=== PATIENT | female | born 1995 | race Caucasian/White ===

== ENCOUNTER 2023-08-11 21:08 | Outpatient (REF) | payer BC, OTHER, SELFPAY ==
[2023-08-17 13:07] LABS: Age Gdln ACOG Testing Note (.); IGP, rfx Aptima HPV ASCU Note (.)
--- OUTSIDE RECORDS SUMMARY | 2023-09-09 21:59 | XMS_ITS | CCD ---
Author Name Unknown Address [id number] [place] [address] Organization [facility] Care Team Providers Care Manager Ship Name Role Phone TAYLOR, DR PLATT Attending Unavailable TAYLOR, DR PLATT Admitting Unavailable TAYLOR, DR PLATT Consulting Unavailable REQUEST, DR CAMPOS LISTED Primary Care Unavaila ble TAYLOR, DR PLATT Admitting Unavailable HOY, DR ALICEA Primary Care Unavailable WEST, DR MARBIN Meyer Consulting Unavailable TAYLOR, DR PLATT Attending Unavailable TAYLOR, DR PLATT Consulting Unavailable TAYLOR, DR PLATT Attending Unavailable TAYLOR, DR PLATT Admitting Unavailable REQUEST, DR CAMPOS LISTED Primary Care Unavaila ble WEST, DR MARBIN Meyer Consulting Unavailable TAYLOR, DR PLATT Consulting Unavailable TAYLOR, DR PLATT Attending Unavailable TAYLOR, DR PLATT Admitting Unavailable REQUEST, DR CAMPOS LISTED Primary Care Unavaila ble TAYLOR, DR PLATT Admitting Unavailable TAYLOR, DR PLATT Consulting Unavailable HOY, DR ALICEA Primary Care Unavailable TAYLOR, DR PLATT Attending Unavailable HOY, DR ALICEA Consulting Unavailable LEMUEL, DR ALICEA Attending Unavailable ABNERY, DR ALICEA Admitting Unavailable HOY, DR ALICEA Primary Care Unavailable TAYLOR, DR PLATT Admitting Unavailable TAYLOR, DR PLATT Consulting Unavailable HOY, DR ALICEA Primary Care Unavailable TAYLOR, DR PLATT Attending Unavailable ZIEBER, DR JAYSHREE Antoine Consulting Unavailable TAYLOR, DR PLATT Attending Unavailable TAYLOR, DR PLATT Admitting Unavailable TAYLOR, DR PLATT Consulting Unavailable REQUEST, DR BETH LISTED Primary Care Unavaila ble TAYLOR, DR PLATT Attending Unavailable TAYLOR, DR PLATT Admitting Unavailable TAYLOR, DR PLATT Consulting Unavailable REQUEST, DR NONE LISTED Primary Care Unavaila ble ELIANE, DR JAYSHREE Antoine Consulting Unavailable TAYLOR, DR PLATT Consulting Unavailable HOY, DR DEANNE Primary Care Unavailable DR GIULIA VAZQUEZ Attending Unavailable TAYLOR, DR PLATT Admitting Unavailable JAYSHREE WHIPPLE Consulting Unavailable DR GIULIA VAZQUEZ Procedure Practitioner Unavailab NICHOLAS Mendoza Consulting Unavailable NICHOLAS KEYS Attending Unavailable NICHOLAS KEYS Admitting Unavailable DR DEANNE HDEZ Primary Care Unavailable SOLYAMILETH NELSON Attending Unavailable Problems Active Problems Problem Classification Problem Date Documented Da te Episodic/Chronic Other connective tissue disease (1 source) Myalgia, other site; Translations: [MYALGIA OTHER SITE] Onset: 10-23-2022 Episodic Other upper respiratory infections (4 sources) Chronic sinusitis, unspecified; Translations: [CHRONIC SINUSITIS UNSPECIFIED] Onset: 10-17-2022 Chronic Spondylosis; intervertebral disc disorders; other back problems (3 sources) Cervicalgia; Translations: [CERVICALGIA] Onset: 10-21-2022 Episodic Unclassified (1 source) CONTACT W/AND (SUSP) EXPOS COVID-19; Translations: [CONTACT W/AND (SUSP) EXPOS COVID-19] Onset: 10-18-2022 Viral infection (1 source) Viral infection, unspecified; Translations: [VIRAL INFECTION UNSPECIFIED] Onset: 10-23-2022 Episodic Past or Other Problems Problem Classification Problem Date Documented Date Episodic/Chronic Genitourinary symptoms and ill-defined conditions (5 sources) Personal history of urinary (tract) infections; Translations: [Unspecified symptoms and signs involving the genitourinary system] Onset: 12-31-2021 Episodic Nausea and vomiting (1 source) Nausea with vomiting, unspecified; Translations: [NAUSEA WITH VOMITING UNSPECIFIED] Onset: 01-23-2022 Episodic OB-related trauma to perineum and vulva (1 source) First degree perineal laceration during delivery; Translations: [FIRST DEG PERINEAL LAC DUR DELIV] Onset: 04-08-2022 Episodic Other complications of ; puerperium affecting management of mother (1 source) Streptococcus B carrier state complicating childbirth; Translations: [STREP B GOOD STATE COMP CHILDBIRTH] Onset: 04-08-2022 Episodic Other complications of (4 sources) Maternal care for excessive growth, third trimester, not applicable or unspecified; Translations: [MAT CARE EXCSS FTL GRTH 3RD TRI UNS] Onset: 03-07-2022 Episodic Other complications of (4 sources) Other specified related conditions, third trimester; Translations: [OTH SPEC PREG RELATED COND 3RD TRI] Onset: 01-18-2022 Episodic Other female genital disorders (1 source) Other specified noninflammatory disorders of vagina; Translations: [OTH SPEC NONINFLAMMATORY D/O VAGINA] Onset: 01-03-2022 Episodic Other injuries and conditions due to external causes (1 source) Unspecified injury of left wrist, hand and finger(s), initial encounter; Translations: [UNS INJ LT WRIST HAND FINGERS INIT] Onset: 11-21-2021 Episodic Other and delivery including normal (1 source) Single live ; Translations: [SINGLE LIVE ] Onset: 04-08-2022 Episodic Other screening for suspected conditions (not mental disorders or infectious disease) (16 sources) Encounter for screening for Streptococcus B; Translations: [Encounter for screening for diabetes mellitus] Onset: 11-19-2021 Episodic Residual codes; unclassified (1 source) 39 weeks gestation of ; Translations: [39 WEEKS GESTATION OF ] Onset: 04-08-2022 Episodic Residual codes; unclassified (1 source) 35 weeks gestation of ; Translations: [35 WEEKS GESTATION OF ] Onset: 03-07-2022 Episodic Residual codes; unclassified (1 source) 28 weeks gestation of ; Translations: [28 WEEKS GESTATION OF ] Onset: 01-23-2022 Episodic Residual codes; unclassified (1 source) 20 weeks gestation of ; Translations: [20 WEEKS GESTATION OF ] Onset: 11-21-2021 Episodic Results Test Name Value Interpretation Reference Range Facil ity CBC AUTO DIFFon 10-21-2022 BASO # 0.0 103/ul Normal 0.0-0.1 [facility] Comment on above: Performed By: #### C BC #### [facility] [address] [place] [address] Dr. Diann Dickerson Basophils/100 WBC (Bld) 0.4 % Normal 0.2-2.0 [facility] Comment on above: Performed By: #### C BC #### [facility] [address] [place] [address] Dr. Diann Dickerson EO # 0.0 103/ul Normal 0.0-0.7 [facility] Comment on above: Performed By: #### C BC #### [facility] [address] [place] [address] Dr. Diann Dickerson Eosinophils/100 WBC (Bld) 0.8 % Critically low 0.9-7. 0 [facility] Comment on above: Performed By: #### C BC #### [facility] [address] [place] [address] Dr. Diann Dickerson Erythrocyte distribution wid th (RBC) [Ratio] 11.0 % Normal 11.0-15.0 [facility] Comment on above: Performed By: #### C BC #### [facility] [address] [place] [address] Dr. Diann Dickerson Hematocrit (Bld) [Volume fraction] 38.0 % Normal 3 6.0-48.0 [facility] Comment on above: Performed By: #### C BC #### [facility] [address] [place] [address] Dr. Diann Dickerson Hemoglobin (Bld) [Mass/Vol] 13.6 g/dL Normal 12.0-16. 0 [facility] Comment on above: Performed By: #### C BC #### [facility] [address] [place] [address] Dr. Diann Dickerson IG # 0.02 10e3/ul Normal 0.00-0.03 [facility] Comment on above: Performed By: #### C BC #### [facility] [address] [place] [address] Dr. Diann Dickerson IG % 0.4 % Normal 0.0-0.5 [facility] Comment on above: Performed By: #### C BC #### [facility] [address] [place] [address] Dr. Diann Dickerson LYMPH # 2.0 103/ul Normal 1.2-3.8 [facility] Comment on above: Performed By: #### C BC #### [facility] [address] [place] [address] Dr. Diann Dickerson Lymphocytes/100 WBC (Bld) 38.2 % Normal 20.5-60.0 [facility] Comment on above: Performed By: #### C BC #### [facility] [address] [place] [address] Dr. Diann Dickerson MANUAL DIFF REQ NO Normal [facility] Comment on above: Performed By: #### C BC #### [facility] [address] [place] [address] Dr. Diann Dickerson MCH (RBC) [Entitic mass] 31.6 pg Normal 26.7-34.0 [facility] Comment on above: Performed By: #### C BC #### [facility] [address] [place] [address] Dr. Diann Dickerson MCHC (RBC) [Mass/Vol] 35.8 g/dL Critically high 29.9-35.2 [facility] Comment on above: Performed By: #### C BC #### [facility] [address] [place] [address] Dr. Diann Dickerson MCV (RBC) [Entitic vol] 88.2 fL Normal 81.0-99.0 [facility] Comment on above: Performed By: #### C BC #### [facility] [address] [place] [address] Dr. Diann Dickerson MONO # 0.4 103/ul Normal 0.3-0.8 [facility] Comment on above: Performed By: #### C BC #### [facility] [address] [place] [address] Dr. Diann Dickerson Monocytes/100 WBC (Bld) 7.7 % Normal 1.7-12.0 [facility] Comment on above: Performed By: #### C BC #### [facility] [address] [place] [address] Dr. Diann Dickerson NEUT # 2.7 103/ul Normal 1.4-6.5 [facility] Comment on above: Performed By: #### C BC #### [facility] [address] [place] [address] Dr. Diann Dickerson Neutrophils/100 WBC (Bld) 52.5 % Normal 43.0-75.0 [facility] Comment on above: Performed By: #### C BC #### [facility] [address] [place] [address] Dr. Diann Dickerson Platelet mean volume (Bld) [ Entitic vol] 10.3 fL Normal 9.5-13.[address] [facility] Comment on above: Performed By: #### C BC #### [facility] [address] [place] [address] Dr. Diann Dickerson PLT 251 103/ul Normal 150-450 [facility] Comment on above: Performed By: #### C BC #### [facility] [address] [place] [address] Dr. Diann Dickerson RBC 4.31 106/ul Normal 4.20-5.40 [facility] Comment on above: Performed By: #### C BC #### [facility] [address] [place] [address] Dr. Diann Dickerson WBC 5.2 103/ul Normal 4.0-11.0 [facility] Comment on above: Performed By: #### C BC #### [facility] [address] [place] [address] Dr. Diann Dickerson ER URINE PROFILEon 3 Bilirubin Ql (U) Negative Normal NEGATIVE [facility] Comment on above: Performed By: #### P REGU, ERUR #### [facility] [address] [place] [address] Dr. Diann Dickerson Clarity (U) CLEAR Normal CLEAR [facility] Comment on above: Performed By: #### P REGU, ERUR #### [facility] [address] [place] [address] Dr. Diann Dickerson Color (U) YELLOW Normal YELLOW [facility] Comment on above: Performed By: #### P REGU, ERUR #### [facility] [address] [place] [address] Dr. Diann Dickerson ERUAHD A micrscopic examina tion will be performed if indicated. Normal [facility] Comment on above: Performed By: #### P REGU, ERUR #### [facility] [address] [address] [address] Diann Dickerson Glucose Ql (U) Negative Normal NEGATIVE [facility] Comment on above: Performed By: #### P REGU, ERUR #### [facility] [address] [address] [address] Diann Dickerson Hemoglobin Ql (U) Negative Normal NEGATIVE [facility] Comment on above: Performed By: #### P REGU, ERUR #### [facility] [address] [address] [address] Diann Dickerson Ketones Ql (U) Negative Normal NEGATIVE [facility] Comment on above: Performed By: #### P REGU, ERUR #### [facility] [address] [place] [address] Dr. Diann Dickerson LEUKOCYTES Negative Normal NEGATIVE [facility] Comment on above: Performed By: #### P REGU, ERUR #### [facility] [address] [place] [address] Dr. Diann Dickerson Nitrite Ql (U) Negative Normal NEGATIVE [facility] Comment on above: Performed By: #### P REGU, ERUR #### [facility] [address] [place] [address] Dr. Diann Dickerson pH (U) 6.0 [pH] Normal 5-9 [facility] Comment on above: Performed By: #### P REGU, ERUR #### [facility] [address] [address] [address] Diann Dickerson SPEC GRAVITY 1.015 Normal 1.005-<=1.025 [facility] Comment on above: Performed By: #### P REGU, ERUR #### [facility] [address] [place] [address] Dr. Diann Dickerson UA PROTEIN Negative Normal NEGATIVE/ TRACE [facility] Comment on above: Performed By: #### P REGU, ERUR #### [facility] [address] [place] [address] Dr. Diann Dickerson UR MICRO IND NOT INDICATED Normal [facility] Comment on above: Performed By: #### P REGU, ERUR #### [facility] [address] [place] [address] Dr. Diann Dickerson Urobilinogen Qn (U) 1.0 {Guy'U}/dL Normal 0.2 - 1. 0 [facility] Comment on above: Performed By: #### P REGU, ERUR #### [facility] [address] [place] [address] Dr. Diann Dickerson GROUP A STREP CULTUREon 09-24 S. pyogenes Ag Ql (Unsp spec) Culture Observations: NEGATIVE FOR GROUP A STREPTOCOCCUS. Normal [facility] Comment on above: Performed By: #### G RASTCX, SSCRN #### [facility] [address] [place] [address] Dr. Diann Dickerson URon 10-21-2022 , QUAL Negative Normal NEGATIVE [facility] Comment on above: Performed By: #### P SHANTAU, ERUR #### [facility] [address] [place] [address] Dr. Diann Dickerson PROF CHEM 8 (BAS METB)on Anion gap [Moles/Vol] 12.1 mmol/L Normal [facility] Comment on above: Performed By: #### C BC #### [facility] [address] [place] [address] Dr. Diann Dickerson Calcium [Mass/Vol] 9.3 mg/dL Normal 8.5-10.1 [facility] Comment on above: Performed By: #### C BC #### [facility] [address] [place] [address] Dr. Diann Dickerson Chloride [Moles/Vol] 101 mmol/L Normal 98-107 [facility] Comment on above: Performed By: #### C BC #### [facility] [address] [place] [address] Dr. Diann Dickerson CO2 [Moles/Vol] 28.3 mmol/L Normal 21.0-32.0 [facility] Comment on above: Performed By: #### C BC #### [facility] [address] [address] [address] iDann Dickerson Creatinine [Mass/Vol] 0.61 mg/dL Normal 0.55-1.02 [facility] Comment on above: Performed By: #### C BC #### [facility] [address] [address] [address] Diann Dickerson EGFR-AF ESTONIAN >60 Normal >=60 [facility] Comment on above: Performed By: #### C BC #### [facility] [address] [address] [address] Diann Dickerson EGFR-NON AF ESTONIAN >60 Normal >=60 [facility] Comment on above: Performed By: #### C BC #### [facility] [address] [place] [address] Dr. Diann Dickerson Glucose [Mass/Vol] 122 mg/dL Critically high 74-106 [facility] Comment on above: Performed By: #### C BC #### [facility] [address] [address] [address] Diann Dickerson Potassium [Moles/Vol] 3.4 mmol/L Critically low 3.5-5.1 [facility] Comment on above: Performed By: #### C BC #### [facility] [address] [place] [address] Dr. Diann Dickerson Sodium [Moles/Vol] 138 mmol/L Normal 136-145 [facility] Comment on above: Performed By: #### C BC #### [facility] [address] [address] [address] Diann Dickerson Urea nitrogen [Mass/Vol] 5.0 mg/dL Critically low 7.0-18. 0 [facility] Comment on above: Performed By: #### C BC #### [facility] [address] [address] [address] Diann Dickerson Urea nitrogen/Creatinine [Mass ratio] 8.2 mg/mg Normal [facility] Comment on above: Performed By: #### C BC #### [facility] [address] [place] [address] [id number] [address] Diann Dickerson STREPT SCREENon 10-21-2022 STREP SCREEN A Negative Normal NEGATIVE [facility] Comment on above: Performed By: #### G RASTCX, SSCRN #### [facility] [address] [address] [address] Diann Dickerson Covid-19 PCR (CVDTB)on 09-23 SARS-CoV-2 (COVID-19) RNA PREMA+probe Ql (Unsp spec) Not detected Normal NOT DETECTED [facility] Comment on above: Result Comment: This test is not yet approved or cleared by the [place] FDA. When there are no FDA-approved or cleared tests available, and other criteria are met, FDA can make tests available under an emergency access mechanism called an Emergency Use Authorization (EUA). The EUA for this test is supported by the [place] of Health and Human Service's (HHS's) declaration that circumstances exist to justify the emergency use of in vitro diagnostics for the detection and/or diagnosis of the virus that causes COVID-19. This EUA will remain in effect (meaning this test can be used) for the duration of the COVID-19 declaration justifying emergency of IVDs, unless it is terminated or revoked by FDA (after which the test may no longer be used). When diagnostic testing is negative, the possibility of a false negative should be considered in the context of a patient's recent exposures and the presence of clinical signs and symptoms consistent with SARS-CoV-2. Performed By: #### C VDTBH #### [facility] [address] [place] [address] Dr. Diann Dickerson INFLUENZA A AND B AGon 10-17 INFLUANEGH SEE BELOW Normal [facility] Comment on above: Result Comment: Nega tive for Flu A protein angiten. Infection due to Flu A cannot be ruled out. Flu A angiten in the sample may be below the detection limit of the test. Performed By: #### U ACSIND #### [facility] [address] [place] [address] Dr. Diann Dickerson INFLUBNEGH SEE BELOW Normal [facility] Comment on above: Result Comment: Nega tive for Flu B protein antigen. Infection due to Flu B cannot be ruled out. Flu B antigen in the sample may be below the detection limit of the test. Performed By: #### U ACSIND #### [facility] [address] [place] [address] Dr. Diann Dickerson INFLUENZA A AG Negative Normal NEGATIVE SEE COMMENT [facility] Comment on above: Performed By: #### U ACSIND #### [facility] [address] [place] [address] Dr. Diann Dickerson INFLUENZA B AG Negative Normal NEGATIVE SEE COMMENT [facility] Comment on above: Performed By: #### U ACSIND #### [facility] [address] [place] [address] Dr. Diann Dickerson CBC AUTO DIFFon 04-02-2022 BASO # 0.0 103/ul Normal 0.0-0.1 [facility] Comment on above: Performed By: #### C VDTBH #### [facility] [address] [place] [address] Dr. Diann Dickerson Basophils/100 WBC (Bld) 0.4 % Normal 0.2-2.0 [facility] Comment on above: Performed By: #### C VDTBH #### [facility] [address] [place] [address] Dr. Diann Dickerson EO # 0.1 103/ul Normal 0.0-0.7 [facility] Comment on above: Performed By: #### C VDTBH #### [facility] [address] [place] [address] Dr. Diann Dickerson Eosinophils/100 WBC (Bld) 0.6 % Critically low 0.9-7. 0 [facility] Comment on above: Performed By: #### C VDTBH #### [facility] [address] [place] [address] Dr. Diann Dickerson Erythrocyte distribution wid th (RBC) [Ratio] 12.3 % Normal 11.0-15.0 [facility] Comment on above: Performed By: #### C VDTBH #### [facility] [address] [address] [address] Diann Dickerson Hematocrit (Bld) [Volume fraction] 35.5 % Critically low 36.0-48.0 [facility] Comment on above: Performed By: #### C VDTBH #### [facility] [address] [address] [address] Diann Dickerson Hemoglobin (Bld) [Mass/Vol] 12.3 g/dL Normal 12.0-16. 0 [facility] Comment on above: Performed By: #### C VDTBH #### [facility] [address] [address] [address] Diann Dickerson IG # 0.07 10e3/ul Critically high 0.00-0.03 [facility] Comment on above: Performed By: #### C VDTBH #### [facility] [address] [address] [address] Diann Dickerson IG % 0.7 % Critically high 0.0-0.5 [facility] Comment on above: Performed By: #### C VDTBH #### [facility] [address] [address] [address] Diann Dickerson LYMPH # 1.3 103/ul Normal 1.2-3.8 [facility] Comment on above: Performed By: #### C VDTBH #### [facility] [address] [address] [address] Diann Dickerson Lymphocytes/100 WBC (Bld) 13.9 % Critically low 20.5-6 0.0 [facility] Comment on above: Performed By: #### C VDTBH #### [facility] [address] [address] [address] Diann Dickerson MANUAL DIFF REQ NO Normal [facility] Comment on above: Performed By: #### C VDTBH #### [facility] [address] [place] [address] Dr. Diann Dickerson MCH (RBC) [Entitic mass] 34.1 pg Critically high 26.7-3 4.0 [facility] Comment on above: Performed By: #### C VDTBH #### [facility] [address] [place] [address] Dr. Diann Dickerson MCHC (RBC) [Mass/Vol] 34.6 g/dL Normal 29.9-35.2 [facility] Comment on above: Performed By: #### C VDTBH #### [facility] [address] [place] [address] Dr. Diann Dickerson MCV (RBC) [Entitic vol] 98.3 fL Normal 81.0-99.0 [facility] Comment on above: Performed By: #### C VDTBH #### [facility] [address] [place] [address] Dr. Diann Dickerson MONO # 1.0 103/ul Critically high 0.3-0.8 [facility] Comment on above: Performed By: #### C VDTBH #### [facility] [address] [place] [address] Dr. Diann Dickerson Monocytes/100 WBC (Bld) 10.5 % Normal 1.7-12.0 [facility] Comment on above: Performed By: #### C VDTBH #### [facility] [address] [place] [address] Dr. Diann Dickerson NEUT # 6.9 103/ul Critically high 1.4-6.5 [facility] Comment on above: Performed By: #### C VDTBH #### [facility] [address] [place] [address] Dr. Diann Dickerson Neutrophils/100 WBC (Bld) 73.9 % Normal 43.0-75.0 [facility] Comment on above: Performed By: #### C VDTBH #### [facility] [address] [place] [address] Dr. Diann Dickerson Platelet mean volume (Bld) [ Entitic vol] 10.8 fL Normal 9.5-13.5 [facility] Comment on above: Performed By: #### C VDTBH #### [facility] [address] [place] [address] Dr. Diann Dickerson PLT 177 103/ul Normal 150-450 [facility] Comment on above: Performed By: #### C VDTBH #### [facility] [address] [place] [address] Dr. Diann Dickerson RBC 3.61 106/ul Critically low 4.20-5.40 [facility] Comment on above: Performed By: #### C VDTBH #### [facility] [address] [place] [address] Dr. Diann Dickerson WBC 9.4 103/ul Normal 4.0-11.0 [facility] Comment on above: Performed By: #### C VDTBH #### [facility] [address] [place] [address] Dr. Diann Dickerson CBC AUTO DIFFon 04-01-2022 BASO # 0.0 103/ul Normal 0.0-0.1 [facility] Comment on above: Performed By: #### C BC #### [facility] [address] [place] [address] Dr. Diann Dickerson Basophils/100 WBC (Bld) 0.3 % Normal 0.2-2.0 [facility] Comment on above: Performed By: #### C BC #### [facility] [address] [place] [address] Dr. Diann Dickerson EO # 0.1 103/ul Normal 0.0-0.7 [facility] Comment on above: Performed By: #### C BC #### [facility] [address] [place] [address] Dr. Diann Dickerson Eosinophils/100 WBC (Bld) 0.6 % Critically low 0.9-7. 0 [facility] Comment on above: Performed By: #### C BC #### [facility] [address] [place] [address] Dr. Diann Dickerson Erythrocyte distribution wid th (RBC) [Ratio] 12.4 % Normal 11.0-15.[address] [facility] Comment on above: Performed By: #### C BC #### [facility] [address] [address] [address] Diann Dickerson Hematocrit (Bld) [Volume fraction] 38.0 % Normal 3 6.0-48.0 [facility] Comment on above: Performed By: #### C BC #### [facility] [address] [place] [address] Dr. Diann Dickerson Hemoglobin (Bld) [Mass/Vol] 13.1 g/dL Normal 12.0-16. 0 [facility] Comment on above: Performed By: #### C BC #### [facility] [address] [place] [address] Dr. Diann Dickerson IG # 0.07 10e3/ul Critically high 0.00-0.03 [facility] Comment on above: Performed By: #### C BC #### [facility] [address] [place] [address] Dr. Diann Dickerson IG % 0.7 % Critically high 0.0-0.5 [facility] Comment on above: Performed By: #### C BC #### [facility] [address] [place] [address] Dr. Diann Dickerson LYMPH # 1.5 103/ul Normal 1.2-3.8 [facility] Comment on above: Performed By: #### C BC #### [facility] [address] [place] [address] Dr. Diann Dickerson Lymphocytes/100 WBC (Bld) 15.6 % Critically low 20.5-6 0.0 [facility] Comment on above: Performed By: #### C BC #### [facility] [address] [place] [address] Dr. Diann Dickerson MANUAL DIFF REQ NO Normal [facility] Comment on above: Performed By: #### C BC #### [facility] [address] [place] [address] Dr. Diann Dickerson MCH (RBC) [Entitic mass] 33.8 pg Normal 26.7-34.0 [facility] Comment on above: Performed By: #### C BC #### [facility] [address] [place] [address] Dr. Diann Dickerson MCHC (RBC) [Mass/Vol] 34.5 g/dL Normal 29.9-35.2 [facility] Comment on above: Performed By: #### C BC #### [facility] [address] [place] [address] Dr. Diann Dickerson MCV (RBC) [Entitic vol] 97.9 fL Normal 81.0-99.0 [facility] Comment on above: Performed By: #### C BC #### [facility] [address] [place] [address] Dr. Diann Dickerson MONO # 0.8 103/ul Normal 0.3-0.8 [facility] Comment on above: Performed By: #### C BC #### [facility] [address] [place] [address] Dr. Diann Dickerson Monocytes/100 WBC (Bld) 8.2 % Normal 1.7-12.0 [facility] Comment on above: Performed By: #### C BC #### [facility] [address] [place] [address] Dr. Diann Dickerson NEUT # 7.1 103/ul Critically high 1.4-6.5 [facility] Comment on above: Performed By: #### C BC #### [facility] [address] [place] [address] Dr. Diann Dickerson Neutrophils/100 WBC (Bld) 74.6 % Normal 43.0-75.0 [facility] Comment on above: Performed By: #### C BC #### [facility] [address] [place] [address] Dr. Diann Dickerson Platelet mean volume (Bld) [ Entitic vol] 10.7 fL Normal 9.5-13.5 [facility] Comment on above: Performed By: #### C BC #### [facility] [address] [place] [address] Dr. Diann Dickerson PLT 172 103/ul Normal 150-450 [facility] Comment on above: Performed By: #### C BC #### [facility] [address] [address] [address] Diann Dickerson RBC 3.88 106/ul Critically low 4.20-5.40 [facility] Comment on above: Performed By: #### C BC #### [facility] [address] [address] [address] Diann Dickerson WBC 9.5 103/ul Normal 4.0-11.0 [facility] Comment on above: Performed By: #### C BC #### [facility] [address] [place] [address] Dr. Diann Dickerson Covid-19 PCR (CVDTB)on 03-22 SARS-CoV-2 (COVID-19) RNA PREMA+probe Ql (Unsp spec) Not detected Normal NOT DETECTED [facility] Comment on above: Result Comment: When diagnostic testing is negative, the possibility of a false negative should be considered in the context of a patient's recent exposures and the presence of clinical signs and symptoms consistent with SARS-CoV-2. This test is not yet approved or cleared by the [place] FDA. When there are no FDA-approved or cleared tests available, and other criteria are met, FDA can make tests available under an emergency access mechanism called an Emergency Use Authorization (EUA). The EUA for this test is supported by the Bottling [employer] Operator of Health and Human Service's declaration that circumstances exist to justify the emergency use of in vitro diagnostics for the detection and/or diagnosis of the virus that causes COVID-19. This EUA will remain in effect for the duration of the COVID-19 declaration justifying emergency of IVDs, unless it is terminated or revoked by the FDA (after which the test may no longer be used). Performed By: #### C VDTBH #### [facility] [address] [place] [address] Dr. Diann Dickerson DRUG SCREEN RAPID (URINE)on 04-01-2022 AMP Negative Normal NEGATIVE [facility] Comment on above: Performed By: #### C BC #### [facility] [address] [place] [address] Dr. Diann Dickerson BAR Negative Normal NEGATIVE [facility] Comment on above: Performed By: #### C BC #### [facility] [address] [place] [address] Dr. Diann Dickerson BUP Negative Normal NEGATIVE [facility] Comment on above: Performed By: #### C BC #### [address] [place] [address] [address] Diann Dickerson BZO Negative Normal NEGATIVE [facility] Comment on above: Performed By: #### C BC #### [facility] [address] [place] [address] Dr. Diann Dickerson KRYS Negative Normal NEGATIVE [facility] Comment on above: Performed By: #### C BC #### [address] [place] [address] Dr[address] Diann Dickerson CUT-OFFS SEE BELOW Normal [facility] Comment on above: Result Comment: AMP (Amphetamine): 500ng/mL, BAR (Barbituates): 200 ng/mL, BZO (Benzodiazepines): 150 ng/mL, BUP (Buprenorphine): 10 ng/mL, KRYS (Cocaine): 150 ng/mL, mAMP (Methamphetamine): 500 ng/mL, MTD (Methadone): 200 ng/mL, OPI (Opiates): 100 ng/mL, OXY (Oxycodone): 100 ng/mL, PCP (Phencyclidine): 25 ng/mL, PPX (Propoxyphene): 300 ng/mL, THC (Cannabinoids): 50 ng/mL, TCA (Trycyclic Antidepressants): 300 ng/mL Performed By: #### C BC #### [facility] [address] [place] [address] Dr. Diann Dickerson DRUG CUT HEADER DRUG CLASS TEST SYST EM CUT-OFF CONCENTRATIONS ARE FOLLOWS: Normal [facility] Comment on above: Performed By: #### C BC #### [facility] [address] [place] [address] Dr. Diann Dickerson mAMP Negative Normal NEGATIVE [facility] Comment on above: Performed By: #### C BC #### [facility] [address] [place] [address] Dr. Diann Dickerson MTD Negative Normal NEGATIVE [facility] Comment on above: Performed By: #### C BC #### [facility] [address] [place] [address] Dr. Diann Dickerson OPI Negative Normal NEGATIVE [facility] Comment on above: Performed By: #### C BC #### [facility] [address] [place] [address] Dr. Diann Dickerson OXY Negative Normal NEGATIVE [facility] Comment on above: Performed By: #### C BC #### [facility] [address] [place] [address] Dr. Diann Dickerson PCP Negative Normal NEGATIVE [facility] Comment on above: Performed By: #### C BC #### [facility] [address] [place] [address] Dr. Diann Dickerson PPX Negative Normal NEGATIVE [facility] Comment on above: Performed By: #### C BC #### [facility] [address] [place] [address] Dr. Diann Dickerson TCA Negative Normal NEGATIVE [facility] Comment on above: Performed By: #### C BC #### [facility] [address] [place] [address] Dr. Diann Dickerson THC Negative Normal NEGATIVE [facility] Comment on above: Performed By: #### C BC #### [facility] [address] [place] [address] Dr. Diann Dickerson GROUP B STREP CULTUREon 02-21 S. agalactiae Ag (Unsp spec) Culture Observations: Group B Strep called to Ashlyn Trinidad LPN at office at 0923 bl Isolate 1 Streptococcus agalactiae Moderate growth of ORGANISM 1 Streptococcus agalactiae ANTIBIOTIC M.I.C RX STATUS Benzylpenicillin <=0.06 S F Ampicillin <=0.25 S F Cefotaxime <=0.12 S F Ceftriaxone <=0.12 S F Levofloxacin 0.5 S F Erythromycin <=0.12 S F Clindamycin <=0.25 S F Linezolid <=2 S F Vancomycin <=0.12 S F Tetracycline >=16 R F Normal [facility] Comment on above: Performed By: #### C BC #### [facility] [address] [address] [address] Diann Dickerson US PREG GROWTHon 03-04-2022 US PREG GROWTH EXAMINATION: US PREG GROWTH HISTORY: Excessive growth affecting management of mother COMPARISON: No relevant comparison available. FINDINGS: Heart Rate: 142.0 bpm Number: 1.0 Position: CEPHALIC Amniotic Fluid Volume: 11.0 cm Maximum Vertical Pocket: 3.4 cm BIOMETRY: BPD: 9.0 cm cm; 36 weeks 2 days HC: 32.3 cmcm; 36 weeks 4 days AC: 31.1 cm cm; 35 weeks 0 days FL: 7.2 cm cm; 37 weeks 0 days EFW: 2775.6 grams; 67% FL/AC: 23.3 FL/BPD: 80.7 HC/AC: 1.0 GESTATIONAL AGE: Age by EDC: 35 weeks 1 days ANGELA by EDC: 04/07/2022 Age by US: 36 weeks, 2 days ANGELA by US: 03/30/2022 IMPRESSION: 1. Single live intrauterine with growth detailed above. Electronically authenticated by: JAYSHREE DEL RIO Date: 2022-03-04 17:33 Normal [facility] AMYLASEon 01-18-2022 Amylase [Catalytic activity/Vol] 30 U/L Normal 25- 115 [facility] Comment on above: Performed By: #### C VDTBH #### [facility] [address] [place] [address] Dr. Diann Dickerson BUNon 01-18-2022 Urea nitrogen [Mass/Vol] 7.0 mg/dL Normal 7.0-18.0 [facility] Comment on above: Performed By: #### C VDTBH #### [facility] [address] [place] [address] Dr. Diann Dickerson CBC AUTO DIFFon 01-18-2022 BASO # 0.0 103/ul Normal 0.0-0.1 [facility] Comment on above: Performed By: #### C VDTBH #### [facility] [address] [place] [address] Dr. Diann Dickerson Basophils/100 WBC (Bld) 0.3 % Normal 0.2-2.0 [facility] Comment on above: Performed By: #### C VDTBH #### [facility] [address] [place] [address] Dr. Diann Dickerson EO # 0.1 103/ul Normal 0.0-0.7 [facility] Comment on above: Performed By: #### C VDTBH #### [facility] [address] [place] [address] Dr. Diann Dickerson Eosinophils/100 WBC (Bld) 0.6 % Critically low 0.9-7. 0 [facility] Comment on above: Performed By: #### C VDTBH #### [facility] [address] [place] [address] Dr. Diann Dickerson Erythrocyte distribution wid th (RBC) [Ratio] 12.6 % Normal 11.0-15.0 [facility] Comment on above: Performed By: #### C VDTBH #### [facility] [address] [place] [address] Dr. Diann Dickerson Hematocrit (Bld) [Volume fraction] 36.8 % Normal 3 6.0-48.0 [facility] Comment on above: Performed By: #### C VDTBH #### [facility] [address] [place] [address] Dr. Diann Dickerson Hemoglobin (Bld) [Mass/Vol] 12.6 g/dL Normal 12.0-16. 0 [facility] Comment on above: Performed By: #### C VDTBH #### [facility] [address] [place] [address] Dr. Diann Dickerson IG # 0.06 10e3/ul Critically high 0.00-0.03 [facility] Comment on above: Performed By: #### C VDTBH #### [facility] [address] [place] [address] Dr. Diann Dickerson IG % 0.7 % Critically high 0.0-0.5 [facility] Comment on above: Performed By: #### C VDTBH #### [facility] [address] [address] [address] Diann Dickerson LYMPH # 0.7 103/ul Critically low 1.2-3.8 [facility] Comment on above: Performed By: #### C VDTBH #### [facility] [address] [address] [address] Diann Dickerson Lymphocytes/100 WBC (Bld) 7.6 % Critically low 20.5-6 0.0 [facility] Comment on above: Performed By: #### C VDTBH #### [facility] [address] [place] [address] Dr. Diann Dickerson MANUAL DIFF REQ NO Normal [facility] Comment on above: Performed By: #### C VDTBH #### [facility] [address] [place] [address] Dr. Diann Dickerson MCH (RBC) [Entitic mass] 33.3 pg Normal 26.7-34.0 [facility] Comment on above: Performed By: #### C VDTBH #### [facility] [address] [place] [address] Dr. Diann Dickerson MCHC (RBC) [Mass/Vol] 34.2 g/dL Normal 29.9-35.2 [facility] Comment on above: Performed By: #### C VDTBH #### [facility] [address] [place] [address] Dr. Diann Dickerson MCV (RBC) [Entitic vol] 97.4 fL Normal 81.0-99.0 [facility] Comment on above: Performed By: #### C VDTBH #### [facility] [address] [place] [address] Dr. Diann Dickerson MONO # 0.5 103/ul Normal 0.3-0.8 [facility] Comment on above: Performed By: #### C VDTBH #### [facility] [address] [place] [address] Dr. Diann Dickerson Monocytes/100 WBC (Bld) 5.3 % Normal 1.7-12.0 [facility] Comment on above: Performed By: #### C VDTBH #### [facility] [address] [place] [address] Dr. Diann Dickerson NEUT # 7.6 103/ul Critically high 1.4-6.5 [facility] Comment on above: Performed By: #### C VDTBH #### [facility] [address] [place] [address] Dr. Diann Dickerson Neutrophils/100 WBC (Bld) 85.5 % Critically high 43.0- 75.0 [facility] Comment on above: Performed By: #### C VDTBH #### [facility] [address] [place] [address] Dr. Diann Dickerson Platelet mean volume (Bld) [ Entitic vol] 10.2 fL Normal 9.5-13.5 [facility] Comment on above: Performed By: #### C VDTBH #### [facility] [address] [place] [address] Dr. Diann Dickerson PLT 198 103/ul Normal 150-450 [facility] Comment on above: Performed By: #### C VDTBH #### [facility] [address] [place] [address] Dr. Diann Dickerson RBC 3.78 106/ul Critically low 4.20-5.40 [facility] Comment on above: Performed By: #### C VDTBH #### [facility] [address] [place] [address] Dr. Diann Dickerson WBC 8.9 103/ul Normal 4.0-11.0 [facility] Comment on above: Performed By: #### C VDTBH #### [facility] [address] [place] [address] Dr. Diann Dickerson CREATININEon 01-18-2022 Creatinine [Mass/Vol] 0.53 mg/dL Critically low 0.55-1.02 [facility] Comment on above: Performed By: #### C VDTBH #### [facility] [address] [place] [address] Dr. Diann Dickerson EGFR-AF ESTONIAN >60 Normal >=60 [facility] Comment on above: Performed By: #### C VDTBH #### [facility] [address] [place] [address] Dr. Diann Dickerson EGFR-NON AF ESTONIAN >60 Normal >=60 [facility] Comment on above: Performed By: #### C VDTBH #### [facility] [address] [place] [address] Dr. Diann Dickerson ELECTROLYTESon 01-18-2022 Anion gap [Moles/Vol] 9.6 mmol/L Normal [facility] Comment on above: Performed By: #### C VDTBH #### [facility] [address] [place] [address] Dr. Diann Dickerson Chloride [Moles/Vol] 106 mmol/L Normal 98-107 [facility] Comment on above: Performed By: #### C VDTBH #### [facility] [address] [place] [address] Dr. Diann Dickerson CO2 [Moles/Vol] 23.5 mmol/L Normal 21.0-32.0 [facility] Comment on above: Performed By: #### C VDTBH #### [facility] [address] [place] [address] Dr. Diann Dickerson Potassium [Moles/Vol] 4.1 mmol/L Normal 3.5-5.1 [facility] Comment on above: Performed By: #### C VDTBH #### [facility] [address] [place] [address] Dr. Diann Dickerson Sodium [Moles/Vol] 135 mmol/L Critically low 136-145 [facility] Comment on above: Performed By: #### C VDTBH #### [facility] [address] [place] [address] Dr. Diann Metcalf 01-18-2022 AST [Catalytic activity/Vol] 15 U/L Normal 15-37 [facility] Comment on above: Performed By: #### C VDTBH #### [facility] [address] [place] [address] Dr. Diann LYNPTon 01-18-2022 ALT [Catalytic activity/Vol] 19 U/L Normal 14-59 [facility] Comment on above: Performed By: #### C VDTBH #### [facility] [address] [place] [address] Dr. Diann Dickerson TSHon 01-18-2022 TSH 1.409 uIU/mL Normal 0.470-4.680 [facility] Comment on above: Performed By: #### C VDTBH #### [facility] [address] [place] [address] Dr. Diann Dickerson TSH RANGE SEE BELOW Normal [facility] Comment on above: Result Comment: <0.3 4 UIU/ml HYPERTHYROID 0.34-5.60 UIU/ml EUTHYROID >5.60 UIU/ml HYPOTHYROID Performed By: #### C VDTBH #### [facility] [address] [place] [address] Dr. Diann Dickerson UA (CLEAN/CATCH) CUBING MACHINE TENDER/MICRO I F IND.on 01-18-2022 Bilirubin Ql (U) Negative Normal NEGATIVE [facility] Comment on above: Performed By: #### U ACSIND #### [facility] [address] [place] [address] Dr. Diann Dickerson Clarity (U) CLEAR Normal CLEAR [facility] Comment on above: Performed By: #### U ACSIND #### [facility] [address] [place] [address] Dr. Diann Dickerson Color (U) YELLOW Normal YELLOW [facility] Comment on above: Performed By: #### U ACSIND #### [facility] [address] [place] [address] Dr. Diann Dickerson Glucose Ql (U) Negative Normal NEGATIVE [facility] Comment on above: Performed By: #### U ACSIND #### [facility] [address] [place] [address] Dr. Diann Dickerson Hemoglobin Ql (U) Negative Normal NEGATIVE [facility] Comment on above: Performed By: #### U ACSIND #### [facility] [address] [place] [address] Dr. Diann Dickerson Ketones Ql (U) Negative Normal NEGATIVE [facility] Comment on above: Performed By: #### U ACSIND #### [facility] [address] [address] [address] Diann Dickerson LEUKOCYTES Negative Normal NEGATIVE [facility] Comment on above: Performed By: #### U ACSIND #### [facility] [address] [address] [address] Diann Dickerson Nitrite Ql (U) Negative Normal NEGATIVE [facility] Comment on above: Performed By: #### U ACSIND #### [facility] [address] [address] [address] Diann Dickerson pH (U) 8.5 [pH] Normal 5-9 [facility] Comment on above: Performed By: #### U ACSIND #### [facility] [address] [place] [address] Dr. Diann Dickerson SPEC GRAVITY 1.015 Normal 1.005-<=1.025 [facility] Comment on above: Performed By: #### U ACSIND #### [facility] [address] [address] [address] Diann Dickerson UA PROTEIN Negative Normal NEGATIVE/ TRACE [facility] [facility] Comment on above: Performed By: #### U ACSIND #### [facility] [address] [address] [address] Diann Dickerson UR MICRO IND NOT INDICATED Normal [facility] Comment on above: Performed By: #### U ACSIND #### [facility] [address] [address] [address] Diann Dickerson Urobilinogen Qn (U) 0.2 {Guy'U}/dL Normal 0.2 - 1. 0 [facility] Comment on above: Performed By: #### U ACSIND #### [facility] [address] [address] [address] Diann Dickerson US PREG BIOPHY W NON STRESSo n 01-18-2022 US PREG BIOPHY W NON STRESS EXAMINATION: US PREG BIOPHY W NON STRESS HISTORY: Nausea and vomiting COMPARISON: No relevant comparison available. TECHNIQUE: Ultrasound biophysical profile was performed in the radiology department. FINDINGS: BREATHING MOVEMENTS: 2.0 GROSS BODY MOVEMENTS: 2.0 TONE: 2.0 QUALITATIVE AMNIOTIC FLUID VOLUME: 2.0 PRESENTATION: Cephalic HEART RATE: 153.4 bpm H.B./min AMNIOTIC FLUID VOLUME: 16.2 cm cm GESTATIONAL AGE: 28 weeks 5 days CONCLUSION: Total biophysical profile score: 8.0 Electronically authenticated by: MARBIN MCKEON Date: 2022-01-18 10:45 Normal [facility] US PREG CERVICAL LENGTHon US PREG CERVICAL LENGTH EXAMINATION: US PREG CERVICAL LENGTH HISTORY: Nausea and vomiting COMPARISON: 12/31/2021 FINDINGS: position: Cephalic Heart rate: 141 bpm Cervix: 4.7 cm, closed Clinical age: 20 weeks 5 days Clinical ANGELA: 04/07/2022 IMPRESSION: Closed cervix measuring 4.7 cm in length Electronically authenticated by: MARBIN MCKEON Date: 2022-01-18 10:46 Normal [facility] CULTURE URINEon 12-31-2021 CULTURE URINE Culture Observations : No growth Normal [facility] Comment on above: Performed By: #### C BC #### [facility] [address] [place] [address] Dr. Diann Dickerson US PREG AMNIOTIC FLUID VOLUM Elio 12-31-2021 US PREG AMNIOTIC FLUID VOLUME EXAMINATION: US PREG AMNIOTIC FLUID VOLUME HISTORY: Noninflammatory disorder of the vagina ; vaginal discharge COMPARISON: No relevant comparison available. TECHNIQUE: Limited sonographic examination for amniotic fluid volume FINDINGS: Presentation: Cephalic FILOMENA: 15.3 cm (between fifth and 95th percentile). Heart rate: 130 bpm Gestational age: 26 weeks, 1 day ANGELA: 04/07/2022 IMPRESSION: 1. Normal amniotic fluid index. Electronically authenticated by: JAYSHREE DEL RIO Date: 2021-12-31 12:41 Normal [facility] GLUCOSE - 1HRon 12-17-2021 Glucose [Mass/Vol] 134 mg/dL Critically high 74-106 T [facility] Comment on above: Performed By: #### G LU1HR #### [facility] [address] [place] [address] Dr. Diann Dickerson HEMOGRAM AND PLATELon 2021 Hematocrit (Bld) [Volume fraction] 36.7 % Normal 3 6.0-48.0 [facility] Comment on above: Performed By: #### C BC #### [facility] [address] [place] [address] Dr. Diann Dickerson Hemoglobin (Bld) [Mass/Vol] 12.5 g/dL Normal 12.0-16. 0 [facility] Comment on above: Performed By: #### C BC #### [facility] [address] [place] [address] Dr. Diann Dickerson MCH (RBC) [Entitic mass] 33.2 pg Normal 26.7-34.0 [facility] Comment on above: Performed By: #### C BC #### [facility] [address] [place] [address] Dr. Diann Dickerson MCHC (RBC) [Mass/Vol] 34.1 g/dL Normal 29.9-35.2 [facility] Comment on above: Performed By: #### C BC #### [facility] [address] [place] [address] Dr. Diann Dickerson MCV (RBC) [Entitic vol] 97.6 fL Normal 81.0-99.0 [facility] Comment on above: Performed By: #### C BC #### [facility] [address] [place] [address] Dr. Diann Dickerson PLT 207 103/ul Normal 150-450 [facility] Comment on above: Performed By: #### C BC #### [facility] [address] [place] [address] Dr. Diann Dickerson RBC 3.76 106/ul Critically low 4.20-5.40 [facility] Comment on above: Performed By: #### C BC #### [facility] [address] [place] [address] Dr. Diann Dickerson WBC 6.3 103/ul Normal 4.0-11.0 [facility] Comment on above: Performed By: #### C BC #### [facility] [address] [place] [address] Dr. Diann Dickerson US PREG ANATOMY SINGLEon US PREG ANATOMY SINGLE EXAMINATION: US PREG ANATOMY SINGLE HISTORY: anatomy study COMPARISON: No relevant comparison available. TECHNIQUE: Transabdominal sonographic examination was performed for obstetrical and evaluation. FINDINGS: Number: 1 Heart Rate: 142 H.B. /min Amniotic Fluid Volume: Subjectively normal position: Variable Placental Location: Posterior, grade 0. Placental edge is 3.1 cm from the cervical os Cervix Length: 4.3 cm, closed Normal structures: Cerebellum. Choroid plexus. Cisterna magna. Lateral cerebral ventricles. Orbits. Midline falx. Hard palate. 4-chamber heart. RVOT. LVOT. Stomach. Kidneys. Bladder. Umbilical cord insertion into abdomen. 3 vessel cord. Cervical spine. Thoracic spine. Lumbar spine. Sacral spine. Right upper extremity. Left upper extremity. Right lower extremity. Left lower extremity. Suboptimally seen: None. Abnormalities/Other: None BIOMETRY: BPD: 4.8 cm 20 weeks 3 days HC: 18.2 cm 20 weeks 4 days AC: 15.4 cm 20 weeks 4 days FL: 3.4 cm 20 weeks 5 days EFW:0.515525; FL/AC: 0.236457 FL/BPD: 0.911493 HC/AC: 1.922603 GESTATIONAL AGE: Age by EDC: 20 weeks 1 day ANGELA by EDC: 04/07/2022 Age by current US: 20 weeks 4 day ANGELA by current US: 04/04/2022 IMPRESSION: Normal anatomy scan *Reference: [employer] Practice Guideline for the performance of Obstetric Ultrasound Examinations, June 22, 2007. Electronically authenticated by: MARBIN MCKEON Date: 2021-11-20 07:34 Normal [facility] Encounters Encounter Date Encounter Type Care Provider Facility Start: 08-11-2023 End: 08-11-2023 ambulatory YAMILETH HORTON Not Available Start: 10-21-2022 End: 10-21-2022 ambulatory NICHOLAS KEYS Facility:[facility] Start: 10-17-2022 End: 10-17-[address] DEANNE HDEZ Facility:[facility] Start: 04-01-2022 End: 04-03-2022 Evaluation and management of inpatient DR GIULIA VAZQUEZ Facility:[facility] Start: 03-11-2022 End: 03-11-[address] GIULIA VAZQUEZ Facility:[facility] Start: 03-04-2022 End: 03-05-[address] GIULIA VAZQUEZ Facility:[facility] Start: 01-18-2022 End: 01-18-[address] GIULIA VAZQUEZ Facility:[facility] Start: 12-31-2021 End: 12-31-[address] GIULIA VAZQUEZ Facility:[facility] Start: 12-31-2021 End: 01-01-[address] GIULIA VAZQUEZ Facility:[facility] Start: 12-17-2021 End: 12-18-[address] GIULIA VAZQUEZ Facility:[facility] Start: 11-19-2021 End: 11-20-[address] GIULIA VAZQUEZ Facility:[facility] Start: 11-19-2021 End: 11-20-[address] GIULIA VAZQUEZ Facility:[facility] Procedures Date Procedure Procedure Detail Performing Clinician Start: 04-01-2022 Delivery of Products of Conception, External Approach DR GIULIA VAZQUEZ Start: 04-01-2022 Drainage of Amniotic Fluid, Therapeutic from Products of Conception, Via Natural or Artificial Opening DR GIULIA VAZQUEZ Start: 04-01-2022 Introduction of Othe r Hormone into Peripheral Vein, Percutaneous Approach DR GIULIA VAZQUEZ Start: 04-01-2022 Repair Perineum Skin , External Approach DR GIULIA VAZQUEZ Payers Date Payer Category Payer Unknown [id number] 2..84 [id number] 1994 Unknown [id number] 2.16.84 [id number] 1994 Unknown [id number] 2.16.84 [id number] 1994 Unknown [id number] 2.16.84 [id number] 1994 Unknown [id number] 2.16.84 [id number] 1994 Unknown [id number] 2.16.84 [id number] 1994 Unknown [id number] 2.16.84 [id number] 1994 Unknown [id number] 2.16.84 [id number] 1994 Unknown [id number] 2.16.84 [id number] 1994 Unknown [id number] 2.16.84 [id number] 1994 Unknown [id number] 2.16.84 [id number] 1959 Unknown [id number] 1959 Unknown [id number] 1959 Unknown [id number] Clinical Note 11-19-2021 Note Date & Type Note Facility 11-19-2021 Note PROCEDURE: XR WRIST LT MIN 3 V COMPARISON: None. HISTORY: Pain of left wrist FINDINGS: BONES:No fracture, acute abnormality, or significant arthropathy. SOFT TISSUES:Negative. No visible soft tissue swelling. EFFUSION:None visible. OTHER: Negative. IMPRESSION: No acute abnormality Electronically authenticated by: MARBIN MCKEON Date: 2021-11-19 13:16 [facility] Summary Purpose Family History No Family History Records FoundNo Family History Records Found Advance Directives No Advanced Directives Records FoundNo Advanced Directives Records Found Additional Source Comments INFORMATION SOURCE (unrecogn ized section and content) DATE CREATED AUTHOR 10/24/2022 [facility] DATE CREATED AUTHOR AUTHOR'S ORGANIZ ATION 08/12/2023 [facility] d[facility] Special[facility] FOR RECORDS PERTAINING TO PATIENTS WHO ARE OR HAVE BEEN ENROLLED IN A CHEMICAL DEPENDENCY/SUBSTANCEABUSE PROGRAM, SOME INFORMATION MAY BE OMITTED. This clinical summary was aggregated from multiple sources. Caution should be exercised in using it in the provision of clinical care. This summary normalizes information from multiple sources, and as a consequence, information in this document may materially change the coding, format and clinical context of patient data. In addition, data may be omitted in some cases. CLINICAL DECISIONS SHOULD BE BASED ON THE PRIMARY CLINICAL RECORDS. [facility] provides no warranty or guarantee of the accuracy or completeness of information in this document.
== END 2023-08-11 21:09 | disposition home or self-care (01) ==
LOC: LAB 21:08
PROVIDERS: PCP Family Medicine; Visit Provider Physician Assistant
DX: Z01.419 Encounter for gynecological examination (general) (routine) without abnormal findings (principal)
CPT/HCPCS: G0145

== ENCOUNTER 2023-08-13 07:52 | Outpatient (OUT) | payer BC, OTHER, SELFPAY ==
[2023-08-13 08:19] LABS: Basophils Percent Auto 0.7 % (0.2-2.0); Eosinophils Absolute Auto 0.1 10^3/uL (0.0-0.7); Eosinophils Percent Auto 1.2 % (0.9-7.0); Hematocrit 41.2 % (36.0-48.0); Hemoglobin 13.9 g/dL (12.0-16.0); Lymphocytes Absolute Auto 1.7 10^3/uL (1.2-3.8); Lymphocytes Percent Auto 39.3 % (20.5-60.0); Mean Corpuscular HGB Conc 33.7 g/dL (29.9-35.2); Mean Corpuscular Hemoglobin 31.7 pg (26.7-34.0); Mean Corpuscular Volume 93.8 fL (81.0-99.0); Mean Platelet Volume 10.5 fL (9.5-13.5); Monocytes Absolute Auto 0.4 10^3/uL (0.3-0.8); Monocytes Percent Auto 8.9 % (1.7-12.0); Neutrophils Absolute Auto 2.1 10^3/uL (1.4-6.5); Neutrophils Percent Auto 49.9 % (43.0-75.0); Platelet Count 242 10^3/uL (150-450); Red Blood Count 4.39 10^6/uL (4.20-5.40); Red Cell Distribution Width 11.2 % (11.0-15.0); White Blood Count 4.3 10^3/uL (4.0-11.0)
[2023-08-13 09:02] LABS: Alanine Aminotransferase 19 U/L (14-59); Albumin Level 3.5 g/dL (3.4-5.0); Alkaline Phosphatase 55 U/L (46-116); Anion Gap 13.1; Aspartate Amino Transferase 13 U/L (15-37); BUN Creatinine Ratio 12.7; Bilirubin Total 1.9 mg/dL (0.2-1.0); Calcium 8.6 mg/dL (8.5-10.1); Carbon Dioxide 28.1 mmol/L (21.0-32.0); Chloride 103 mmol/L (98-107); Chol HDL Ratio 2.8; Cholesterol 187 mg/dL (<=200); Estimated GFR (African America >60 (>=60); Estimated GFR (Non-African Ame >60 (>=60); Globulin 3.4 g/dL; Glucose 93 mg/dL (74-106); HDL Cholesterol 66 mg/dL (40-60); Potassium 4.2 mmol/L (3.5-5.1); Sodium 140 mmol/L (136-145); Total Protein 6.9 g/dL (6.4-8.2); Triglycerides 124 mg/dL (<=150); VLDL CHOLESTEROL 24.8 mg/dL
[2023-08-13 09:54] LABS: Estimated Average Glucose 91 mg/dL; Glycohemoglobin A1C 4.8 % (4.5-6.2)
== END 2023-08-13 07:53 | disposition home or self-care (01) ==
PROVIDERS: PCP Family Medicine; Visit Provider Obstetrics & Gynecology
DX: Z00.00 Encounter for general adult medical examination without abnormal findings (principal)
CPT/HCPCS: 36415; 80053; 80061; 83036; 85025

== ENCOUNTER 2023-11-12 13:45 | Outpatient (OUT) | payer BC, OTHER, SELFPAY ==
[2023-11-12 14:52] LABS: HCG Quantitative 3497 mIU/mL
== END 2023-11-12 13:46 | disposition home or self-care (01) ==
LOC: LAB 13:45
PROVIDERS: PCP Family Medicine; Visit Provider Obstetrics & Gynecology
DX: N92.6 Irregular menstruation, unspecified (principal)
CPT/HCPCS: 36415; 84702

== ENCOUNTER 2023-11-14 10:07 | Outpatient (OUT) | payer BC, OTHER, SELFPAY ==
--- OUTSIDE RECORDS SUMMARY | 2023-11-14 10:16 | XMS_ITS | CCD ---
Author Name Unknown Address [id number] [place] [address] Organization [facility] Team Providers Care Derrick Boat Runner Name Role Phone TAYLOR, DR PLATT Attending Unavailable TAYLOR, DR PLATT Admitting Unavailable TAYLOR, DR PLATT Consulting Unavailable REQUEST, DR ACMPOS LISTED Primary Care Unavaila ble TAYLOR, DR [...] Unavailable JAYSHREE WHIPPLE Consulting Unavailable DR GIULIA VAQZUEZ Procedure Practitioner Unavailab NICHOLAS Mendoza Consulting Unavailable [...] 10-21-2022 BASO # 0.0 103/ul Normal 0.0-0.1 [facility] Comment on above: Performed By: #### C BC #### [facility] [address] [place] [address] Dr. Diann Dickerson Basophils/100 WBC (Bld) 0.4 % Normal 0.2-2.0 [facility] Comment on above: Performed By: #### C BC #### [facility] [address] [place] [address] Dr. Diann Dickerson EO # 0.0 103/ul Normal 0.0-0.7 [facility] Comment on above: Performed By: #### C BC #### [facility] [address] [place] [address] Dr. Diann Dickerson Eosinophils/100 WBC (Bld) 0.8 % Critically low 0.9-7.0 [facility] Comment on above: Performed By: #### C BC #### [facility] [address] [place] [address] Dr. Diann Dickerson Erythrocyte distribution width (RBC) [Ratio] 11.0 % Normal 11.0-15.0 [facility] Comment on above: Performed By: #### C BC #### [facility] [address] [place] [address] Dr. Diann Dickerson Hematocrit (Bld) [Volume fraction] 38.0 % Normal 36.0-48.0 [facility] Comment on above: Performed By: #### C BC #### [facility] [address] [place] [address] Dr. Diann Dickerson Hemoglobin (Bld) [Mass/Vol] 13.6 g/dL Normal 12.0-16.0 [facility] Comment on above: Performed By: #### C BC #### [facility] [address] [place] [address] Dr. Diann Dickerson IG # 0.02 10e3/ul Normal 0.00-0.03 [facility] Comment on above: Performed By: #### C BC #### [facility] [address] [place] [address] Dr. Diann Dickerson IG % 0.4 % Normal 0.0-0.5 [facility] Comment on above: Performed By: #### C BC #### [facility] [address] [place] [address] Dr. Diann Dickerson LYMPH # 2.0 103/ul Normal 1.2-3.8 [facility] Comment on above: Performed By: #### C BC #### [facility] [address] [place] [address] Dr. Diann Dickerson Lymphocytes/100 WBC (Bld) 38.2 % Normal 20.5-60.0 [facility] Comment on above: Performed By: #### C BC #### [facility] [address] [place] [address] Dr. Diann Dickerson MANUAL DIFF REQ NO Normal [facility] Comment on above: Performed By: #### C BC #### [facility] [address] [place] [address] Dr. Diann Dickerson MCH (RBC) [Entitic mass] 31.6 pg Normal 26.7-34.0 [facility] Comment on above: Performed By: #### C BC #### [facility] [address] [place] [address] Dr. Diann Dickerson MCHC (RBC) [Mass/Vol] 35.8 g/dL Critically high 29.9-35.2 [facility] Comment on above: Performed By: #### C BC #### [facility] [address] [place] [address] Dr. Diann Dickerson MCV (RBC) [Entitic vol] 88.2 fL Normal 81.0-99.0 [facility] Comment on above: Performed By: #### C BC #### [facility] [address] [place] [address] Dr. Diann Dickerson MONO # 0.4 103/ul Normal 0.3-0.8 [facility] Comment on above: Performed By: #### C BC #### [facility] [address] [place] [address] Dr. Diann Dickerson Monocytes/100 WBC (Bld) 7.7 % Normal 1.7-12.0 [facility] Comment on above: Performed By: #### C BC #### [facility] [address] [place] [address] Dr. Diann Dickerson NEUT # 2.7 103/ul Normal 1.4-6.5 [facility] Comment on above: Performed By: #### C BC #### [facility] [address] [place] [address] Dr. Diann Dickerson Neutrophils/100 WBC (Bld) 52.5 % Normal 43.0-75.0 [facility] Comment on above: Performed By: #### C BC #### [facility] [address] [place] [address] Dr. Diann Dickerson Platelet mean volume (Bld) [Entitic vol] 10.3 fL Normal 9.5-13.5 [facility] Comment on above: Performed By: #### C BC #### [facility] [address] [place] [address] Dr. Diann Dickerson PLT 251 103/ul Normal 150-450 [facility] Comment on above: Performed By: #### C BC #### [facility] [address] [place] [address] Dr. Diann Dickerson RBC 4.31 106/ul Normal 4.20-5.40 [facility] Comment on above: Performed By: #### C BC #### [facility] [address] [place] [address] Dr. Diann Dickerson WBC 5.2 103/ul Normal 4.0-11.0 [facility] Comment on above: Performed By: #### C BC #### [facility] [address] [place] [address] Dr. Diann Dickerson ER URINE PROFILEon 3 Bilirubin Ql (U) Negative Normal NEGATIVE [facility] Comment on above: Performed By: #### P JONATHAN, ERUR #### [facility] [address] [place] [address] Dr. Diann Dickerson Clarity (U) CLEAR Normal CLEAR [facility] Comment on above: Performed By: #### P REGU, ERUR #### [facility] [address] [place] [address] Dr. Diann Dickerson Color (U) YELLOW Normal YELLOW [facility] Comment on above: Performed By: #### P SHANTAU, ERUR #### [facility] [address] [place] [address] Dr. Diann Dickerson ERUAHD A micrscopic examination will be performed if indicated. Normal [facility] Comment on above: Performed By: #### P SHANTAU, ERUR #### [facility] [address] [address] [address] Diann Dickerson Glucose Ql (U) Negative Normal NEGATIVE [facility] Comment on above: Performed By: #### P REGU, ERUR #### [facility] [address] [address] [address] Diann Dickerson Hemoglobin Ql (U) Negative Normal NEGATIVE [facility] Comment on above: Performed By: #### P REGU, ERUR #### [facility] [address] [address] [address] Diann Dickerson Ketones Ql (U) Negative Normal NEGATIVE [facility] Comment on above: Performed By: #### P REGU, ERUR #### [facility] [address] [place] [address] Dr. Diann Dickerson LEUKOCYTES Negative Normal NEGATIVE [facility] Comment on above: Performed By: #### P REGU, ERUR #### [facility] [address] [place] [address] Dr. Diann Dickerson Nitrite Ql (U) Negative Normal NEGATIVE [facility] Comment on above: Performed By: #### P REGU, ERUR #### [facility] [address] [place] [address] Dr. Diann Dickerson pH (U) 6.0 [pH] Normal 5-9 [facility] Comment on above: Performed By: #### P REGU, ERUR #### [facility] [address] [place] [address] Dr. Diann Dickerson SPEC GRAVITY 1.015 Normal 1.005-<=1.025 [facility] Comment on above: Performed By: #### P REGU, ERUR #### [facility] [address] [place] [address] Dr. Diann Dickerson UA PROTEIN Negative Normal NEGATIVE/ TRACE [facility] Comment on above: Performed By: #### P REGU, ERUR #### [facility] [address] [place] [address] Dr. Diann Dickerson UR MICRO IND NOT INDICATED Normal [facility] Comment on above: Performed By: #### P REGU, ERUR #### [facility] [address] [place] [address] Dr. Diann Dickerson Urobilinogen Qn (U) 1.0 {Guy'U}/dL Normal 0.2 - 1. 0 [facility] Comment on above: Performed By: #### P REGU, ERUR #### [facility] [address] [place] [address] Dr. Diann Dickerson GROUP A STREP CULTUREon 09-24 S. pyogenes Ag Ql (Unsp spec) Culture Observations: NEGATIVE FOR GROUP A STREPTOCOCCUS. Normal [facility] Comment on above: Performed By: #### G RASTCX, SSCRN #### [facility] [address] [place] [address] Dr. Diann Dickerson URon 10-21-2022 , QUAL Negative Normal NEGATIVE [facility] Comment on above: Performed By: #### P REGU, ERUR #### [facility] [address] [place] [address] Dr. Diann Dickerson PROF CHEM 8 (BAS METB)on Anion gap [Moles/Vol] 12.1 mmol/L Normal [facility] Comment on above: Performed By: #### C BC #### [facility] [address] [place] [address] Dr. Diann Dickerson Calcium [Mass/Vol] 9.3 mg/dL Normal 8.5-10.1 [facility] Comment on above: Performed By: #### C BC #### [facility] [address] [place] [address] Dr. Diann Dickerson Chloride [Moles/Vol] 101 mmol/L Normal 98-107 [facility] Comment on above: Performed By: #### C BC #### [facility] [address] [place] [address] Dr. Diann Dickerson CO2 [Moles/Vol] 28.3 mmol/L Normal 21.0-32.0 [facility] Comment on above: Performed By: #### C BC #### [facility] [address] [place] [address] Dr. Diann Dickerson Creatinine [Mass/Vol] 0.61 mg/dL Normal 0.55-1.02 [facility] Comment on above: Performed By: #### C BC #### [facility] [address] [address] [address] Diann Dickerson EGFR-AF [place]ER >60 Normal >=60 [facility] Comment on above: Performed By: #### C BC #### [facility] [address] [address] [address] Diann Dickerson EGFR-NON AF [place]ER >60 Normal >=60 [facility] Comment on above: Performed By: #### C BC #### [facility] [address] [address] [address] Diann Dickerson Glucose [Mass/Vol] 122 mg/dL Critically high 74-106 [facility] Comment on above: Performed By: #### C BC #### [facility] [address] [address] [address] Diann Dickerson Potassium [Moles/Vol] 3.4 mmol/L Critically low 3.5-5.1 [facility] Comment on above: Performed By: #### C BC #### [facility] [address] [address] [address] Diann Dickerson Sodium [Moles/Vol] 138 mmol/L Normal 136-145 [facility] Comment on above: Performed By: #### C BC #### [facility] [address] [address] [address] Diann Dickerson Urea nitrogen [Mass/Vol] 5.0 mg/dL Critically low 7.0-18.0 [facility] Comment on above: Performed By: #### C BC #### [facility] [address] [address] [address] Diann Dickerson Urea nitrogen/Creatinine [Mass ratio] 8.2 mg/mg Normal [facility] Comment on above: Performed By: #### C BC #### [facility] [address] [address] [address] Diann Dickerson STREPT SCREENon 10-21-2022 STREP SCREEN A Negative Normal NEGATIVE [facility] Comment on above: Performed By: #### G RASTCX, SSCRN #### [facility] [address] [address] [address] Diann Dickerson Covid-19 PCR ([facility])on 09-23 SARS-CoV-2 (COVID-19) RNA PREMA+probe Ql (Unsp spec) Not detected Normal NOT DETECTED [facility] Comment on above: Result Comment: This test is not yet approved or cleared by the [place] FDA. When there are no FDA-approved or cleared tests available, and other criteria are met, FDA can make tests available under an emergency access mechanism called an Emergency Use Authorization (EUA). The EUA for this test is supported by the [place] of Health and Human Service's (HHS's) declaration [...] SARS-CoV-2. Performed By: #### C VDTBH #### [facility] [address] [place] [address] Dr. Diann Dickerson INFLUENZA A AND B AGon 10-17 [facility] SEE BELOW Normal [facility] Comment on above: Result Comment: Nega tive for Flu A protein angiten. Infection due to Flu A cannot be ruled out. Flu A angiten in the sample may be below the detection limit of the test. Performed By: #### U ACSIND #### [facility] [address] [place] [address] Dr. Diann Dickerson INFLUBNEG SEE BELOW Normal [facility] Comment on above: Result Comment: Nega tive for Flu B protein antigen. Infection due to Flu B cannot be ruled out. Flu B antigen in the sample may be below the detection limit of the test. Performed By: #### U ACSIND #### [facility] [address] [place] [address] Dr. Diann Dickerson INFLUENZA A AG Negative Normal NEGATIVE SEE COMMENT [facility] Comment on above: Performed By: #### U ACSIND #### [facility] [address] [place] [address] Dr. Diann Dickerson INFLUENZA B AG Negative Normal NEGATIVE SEE COMMENT [facility] Comment on above: Performed By: #### U ACSIND #### [facility] [address] [place] [address] Dr. Diann Dickerson CBC AUTO DIFFon 04-02-2022 BASO # 0.0 103/ul Normal 0.0-0.1 [facility] Comment on above: Performed By: #### C VDTBH #### [facility] [address] [place] [address] Dr. Diann Dickerson Basophils/100 WBC (Bld) 0.4 % Normal 0.2-2.0 [facility] Comment on above: Performed By: #### C VDTBH #### [facility] [address] [place] [address] Dr. Diann Dickerson EO # 0.1 103/ul Normal 0.0-0.7 [facility] Comment on above: Performed By: #### C VDTBH #### [facility] [address] [place] [address] Dr. Diann Dickerson Eosinophils/100 WBC (Bld) 0.6 % Critically low 0.9-7.0 [facility] Comment on above: Performed By: #### C VDTBH #### [facility] [address] [place] [address] Dr. Diann Dickerson Erythrocyte distribution width (RBC) [Ratio] 12.3 % Normal 11.0-15.0 [facility] Comment on above: Performed By: #### C VDTBH #### [facility] [address] [place] [address] Dr. Diann Dickerson Hematocrit (Bld) [Volume fraction] 35.5 % Critically low 36.0-48.0 [facility] Comment on above: Performed By: #### C VDTBH #### [facility] [address] [place] [address] Dr. Diann Dickerson Hemoglobin (Bld) [Mass/Vol] 12.3 g/dL Normal 12.0-16.0 [facility] Comment on above: Performed By: #### C VDTBH #### [facility] [address] [place] [address] Dr. Diann Dickerson IG # 0.07 10e3/ul Critically high 0.00-0.03 [facility] Comment on above: Performed By: #### C VDTBH #### [facility] [address] [place] [address] Dr. Diann Dickerson IG % 0.7 % Critically high 0.0-0.5 [facility] Comment on above: Performed By: #### C VDTBH #### [facility] [address] [place] [address] Dr. Diann Dickerson LYMPH # 1.3 103/ul Normal 1.2-3.8 [facility] Comment on above: Performed By: #### C VDTBH #### [facility] [address] [place] [address] Dr. Diann Dickerson Lymphocytes/100 WBC (Bld) 13.9 % Critically low 20.5-60.0 [facility] Comment on above: Performed By: #### C VDTBH #### [facility] [address] [place] [address] Dr. Diann Dickerson MANUAL DIFF REQ NO Normal [facility] Comment on above: Performed By: #### C VDTBH #### [facility] [address] [place] [address] Dr. Diann Dickerson MCH (RBC) [Entitic mass] 34.1 pg Critically high 26.7-34.0 [facility] Comment on above: Performed By: #### C VDTBH #### [facility] [address] [place] [address] Dr. Diann Dickerson MCHC (RBC) [Mass/Vol] 34.6 g/dL Normal 29.9-35.2 [facility] Comment on above: Performed By: #### C VDTBH #### [facility] [address] [address] [address] Diann Dickerson MCV (RBC) [Entitic vol] 98.3 fL Normal 81.0-99.0 [facility] Comment on above: Performed By: #### C VDTBH #### [facility] [address] [place] [address] Dr. Diann Dickerson MONO # 1.0 103/ul Critically high 0.3-0.8 [facility] Comment on above: Performed By: #### C VDTBH #### [facility] [address] [place] [address] Dr. Diann Dickerson Monocytes/100 WBC (Bld) 10.5 % Normal 1.7-12.0 [facility] Comment on above: Performed By: #### C VDTBH #### [facility] [address] [place] [address] Dr. Diann Dickerson NEUT # 6.9 103/ul Critically high 1.4-6.5 [facility] Comment on above: Performed By: #### C VDTBH #### [facility] [address] [place] [address] Dr. Diann Dickerson Neutrophils/100 WBC (Bld) 73.9 % Normal 43.0-75.0 [facility] Comment on above: Performed By: #### C VDTBH #### [facility] [address] [place] [address] Dr. Diann Dickerson Platelet mean volume (Bld) [Entitic vol] 10.8 fL Normal 9.5-13.5 [facility] Comment on above: Performed By: #### C VDTBH #### [facility] [address] [place] [address] Dr. Diann Dickerson PLT 177 103/ul Normal 150-450 [facility] Comment on above: Performed By: #### C VDTBH #### [facility] [address] [place] [address] Dr. Diann Dickerson RBC 3.61 106/ul Critically low 4.20-5.40 [facility] Comment on above: Performed By: #### C VDTBH #### [facility] [address] [address] [address] Diann Dickerson WBC 9.4 103/ul Normal 4.0-11.0 [facility] Comment on above: Performed By: #### C VDTBH #### [facility] [address] [address] [address] Diann Dickerson CBC AUTO DIFFon 04-01-2022 BASO # 0.0 103/ul Normal 0.0-0.1 [facility] Comment on above: Performed By: #### C BC #### [facility] [address] [address] [address] Diann Dickerson Basophils/100 WBC (Bld) 0.3 % Normal 0.2-2.0 [facility] Comment on above: Performed By: #### C BC #### [facility] [address] [place] [address] Dr. Diann Dickerson EO # 0.1 103/ul Normal 0.0-0.7 [facility] Comment on above: Performed By: #### C BC #### [facility] [address] [address] [address] Diann Dickerson Eosinophils/100 WBC (Bld) 0.6 % Critically low 0.9-7.0 [facility] Comment on above: Performed By: #### C BC #### [facility] [address] [place] [address] Dr. Diann Dickerson Erythrocyte distribution width (RBC) [Ratio] 12.4 % Normal 11.0-15.0 [facility] Comment on above: Performed By: #### C BC #### [facility] [address] [place] [address] Dr. Diann Dickerson Hematocrit (Bld) [Volume fraction] 38.0 % Normal 36.0-48.0 [facility] Comment on above: Performed By: #### C BC #### [facility] [address] [place] [address] Dr. Diann Dickerson Hemoglobin (Bld) [Mass/Vol] 13.1 g/dL Normal 12.0-16.0 [facility] Comment on above: Performed By: #### C BC #### [facility] [address] [place] [address] Dr. Diann Dickerson IG # 0.07 10e3/ul Critically high 0.00-0.03 [facility] Comment on above: Performed By: #### C BC #### [facility] [address] [place] [address] Dr. Diann Dickerson IG % 0.7 % Critically high 0.0-0.5 [facility] Comment on above: Performed By: #### C BC #### [facility] [address] [place] [address] Dr. Diann Dickerson LYMPH # 1.5 103/ul Normal 1.2-3.8 [facility] Comment on above: Performed By: #### C BC #### [facility] [address] [place] [address] Dr. Diann Dickerson Lymphocytes/100 WBC (Bld) 15.6 % Critically low 20.5-60.0 [facility] Comment on above: Performed By: #### C BC #### [facility] [address] [place] [address] Dr. Diann Dickerson MANUAL DIFF REQ NO Normal [facility] Comment on above: Performed By: #### C BC #### [facility] [address] [place] [address] Dr. Diann Dickerson MCH (RBC) [Entitic mass] 33.8 pg Normal 26.7-34.0 [facility] Comment on above: Performed By: #### C BC #### [facility] [address] [place] [address] Dr. Diann Dickerson MCHC (RBC) [Mass/Vol] 34.5 g/dL Normal 29.9-35.2 [facility] Comment on above: Performed By: #### C BC #### [facility] [address] [place] [address] Dr. Diann Dickerson MCV (RBC) [Entitic vol] 97.9 fL Normal 81.0-99.0 [facility] Comment on above: Performed By: #### C BC #### [facility] [address] [address] [address] Diann Dickerson MONO # 0.8 103/ul Normal 0.3-0.8 [facility] Comment on above: Performed By: #### C BC #### [facility] [address] [address] [address] Diann Dickerson Monocytes/100 WBC (Bld) 8.2 % Normal 1.7-12.0 [facility] Comment on above: Performed By: #### C BC #### [facility] [address] [address] [address] Diann Dickerson NEUT # 7.1 103/ul Critically high 1.4-6.5 [facility] Comment on above: Performed By: #### C BC #### [facility] [address] [place] [address] Dr. Diann Dickerson Neutrophils/100 WBC (Bld) 74.6 % Normal 43.0-75.0 [facility] Comment on above: Performed By: #### C BC #### [facility] [address] [place] [address] Dr. Diann Dickerson Platelet mean volume (Bld) [Entitic vol] 10.7 fL Normal 9.5-13.5 [facility] Comment on above: Performed By: #### C BC #### [facility] [address] [place] [address] Dr. Diann Dickerson PLT 172 103/ul Normal 150-450 [facility] Comment on above: Performed By: #### C BC #### [facility] [address] [place] [address] Dr. Diann Dickerson RBC 3.88 106/ul Critically low 4.20-5.40 [facility] Comment on above: Performed By: #### C BC #### [facility] [address] [address] [address] Diann Dickerson WBC 9.5 103/ul Normal 4.0-11.0 [facility] Comment on above: Performed By: #### C BC #### [facility] [address] [place] [address] Dr. Diann Dickerson Covid-19 PCR ([facility])on 03-22 SARS-CoV-2 (COVID-19) RNA PREMA+probe Ql (Unsp spec) Not detected Normal NOT DETECTED [facility] Comment on above: Result Comment: When diagnostic [...] for this test is supported by the Outside Collector of Health and Human Service's declaration that [...] used). Performed By: #### C VDTBH #### [facility] [address] [place] [address] Dr. Diann Dickerson DRUG SCREEN RAPID (URINE)on 04-01-2022 AMP Negative Normal NEGATIVE [facility] Comment on above: Performed By: #### C BC #### [facility] [address] [place] [address] Dr. Diann Dickerson BAR Negative Normal NEGATIVE [facility] Comment on above: Performed By: #### C BC #### [facility] [address] [place] [address] Dr. Diann Dickerson BUP Negative Normal NEGATIVE [facility] Comment on above: Performed By: #### C BC #### [facility] [address] [place] [address] Dr. Diann Dickerson BZO Negative Normal NEGATIVE [facility] Comment on above: Performed By: #### C BC #### [facility] [address] [place] [address] Dr. Diann Dickerson KRYS Negative Normal NEGATIVE [facility] Comment on above: Performed By: #### C BC #### [facility] [address] [place] [address] Dr. Diann Dickerson CUT-OFFS SEE BELOW Normal [facility] Comment on above: Result Comment: AMP (Amphetamine): 500ng/mL, BAR (Barbituates): 200 ng/mL, BZO (Benzodiazepines): 150 ng/mL, BUP (Buprenorphine): 10 ng/mL, KRYS (Cocaine): 150 ng/mL, mAMP (Methamphetamine): 500 ng/mL, MTD (Methadone): 200 ng/mL, OPI (Opiates): 100 ng/mL, OXY (Oxycodone): 100 ng/mL, PCP (Phencyclidine): 25 ng/mL, PPX (Propoxyphene): 300 ng/mL, THC (Cannabinoids): 50 ng/mL, TCA (Trycyclic Antidepressants): 300 ng/mL Performed By: #### C BC #### [facility] [address] [place] [address] Dr. Diann Dickerson DRUG CUT HEADER DRUG CLASS TEST SYSTEM CUT-OFF CONCENTRATIONS ARE FOLLOWS: Normal [facility] Comment on above: Performed By: #### C BC #### [facility] [address] [place] [address] Dr. Diann Dickerson mAMP Negative Normal NEGATIVE [facility] Comment on above: Performed By: #### C BC #### [facility] [address] [place] [address] Dr. Diann Dickerson MTD Negative Normal NEGATIVE [facility] Comment on above: Performed By: #### C BC #### [facility] [address] [place] [address] Dr. Diann Dickerson OPI Negative Normal NEGATIVE [facility] Comment on above: Performed By: #### C BC #### [facility] [address] [place] [address] Dr. Diann Dickerson OXY Negative Normal NEGATIVE [facility] Comment on above: Performed By: #### C BC #### [facility] [address] [place] [address] Dr. Diann Dickerson PCP Negative Normal NEGATIVE [facility] Comment on above: Performed By: #### C BC #### [facility] [address] [id number] [address] Diann Dickerson PPX Negative Normal NEGATIVE [facility] Comment on above: Performed By: #### C BC #### [facility] [address], [place] [address] Dr. Diann Dickerson TCA Negative Normal NEGATIVE [facility] Comment on above: Performed By: #### C BC #### [facility] [address] [place], [place] [address] Dr. Diann Dickerson THC Negative Normal NEGATIVE [facility] Comment on above: Performed By: #### C BC #### [facility] [address] [place], [place] [id number] Dr. Diann Dickerson GROUP B STREP CULTUREon 02-21 S. agalactiae Ag Ql (Unsp spec) Culture Observations: Group B Strep [...] F Tetracycline >=16 R F Normal [facility] Comment on above: Performed By: #### C BC #### [facility] [address] [place], [place] [id number] Dr. Diann Dickerson US PREG GROWTHon 03-04-2022 [...] DEL RIO Date: 2022-03-04 17:33 Normal [facility] AMYLASEon 01-18-2022 Amylase [Catalytic activity/Vol] 30 U/L Normal 25-115 [facility] Comment on above: Performed By: #### C VDTBH #### [facility] [address] [place] [address] Dr. Diann Dickerson BUNon 01-18-2022 Urea nitrogen [Mass/Vol] 7.0 mg/dL Normal 7.0-18.0 [facility] Comment on above: Performed By: #### C VDTBH #### [facility] [address] [place] [address] Dr. Diann Dickerson CBC AUTO DIFFon 01-18-2022 BASO # 0.0 103/ul Normal 0.0-0.1 [facility] Comment on above: Performed By: #### C VDTBH #### [facility] [address] [place] [address] Dr. Diann Dickerson Basophils/100 WBC (Bld) 0.3 % Normal 0.2-2.0 [facility] Comment on above: Performed By: #### C VDTBH #### [facility] [address] [place] [address] Dr. Diann Dickerson EO # 0.1 103/ul Normal 0.0-0.7 [facility] Comment on above: Performed By: #### C VDTBH #### [facility] [address] [place] [address] Dr. Diann Dickerson Eosinophils/100 WBC (Bld) 0.6 % Critically low 0.9-7.0 [facility] Comment on above: Performed By: #### C VDTBH #### [facility] [address] [place] [address] Dr. Diann Dickerson Erythrocyte distribution width (RBC) [Ratio] 12.6 % Normal 11.0-15.0 [facility] Comment on above: Performed By: #### C VDTBH #### [facility] [address] [place] [address] Dr. Diann Dickerson Hematocrit (Bld) [Volume fraction] 36.8 % Normal 36.0-48.0 [facility] Comment on above: Performed By: #### C VDTBH #### [facility] [address] [place] [address] Dr. Diann Dickerson Hemoglobin (Bld) [Mass/Vol] 12.6 g/dL Normal 12.0-16.0 [facility] Comment on above: Performed By: #### C VDTBH #### [facility] [address] [place] [address] Dr. Diann Dickerson IG # 0.06 10e3/ul Critically high 0.00-0.03 [facility] Comment on above: Performed By: #### C VDTBH #### [facility] [address] [place] [address] Dr. Diann Dickerson IG % 0.7 % Critically high 0.0-0.5 [facility] Comment on above: Performed By: #### C VDTBH #### [facility] [address] [place] [address] Dr. Diann Dickerson LYMPH # 0.7 103/ul Critically low 1.2-3.8 [facility] Comment on above: Performed By: #### C VDTBH #### [facility] [address] [place] [address] Dr. Diann Dickerson Lymphocytes/100 WBC (Bld) 7.6 % Critically low 20.5-60.0 [facility] Comment on above: Performed By: #### C VDTBH #### [facility] [address] [place] [address] Dr. Diann Dickerson MANUAL DIFF REQ NO Normal [facility] Comment on above: Performed By: #### C VDTBH #### [facility] [address] [place] [address] Dr. Diann Dickerson MCH (RBC) [Entitic mass] 33.3 pg Normal 26.7-34.0 [facility] Comment on above: Performed By: #### C VDTBH #### [facility] [address] [place] [address] Dr. Diann Dickerson MCHC (RBC) [Mass/Vol] 34.2 g/dL Normal 29.9-35.2 [facility] Comment on above: Performed By: #### C VDTBH #### [facility] [address] [place] [address] Dr. Diann Dickerson MCV (RBC) [Entitic vol] 97.4 fL Normal 81.0-99.0 [facility] Comment on above: Performed By: #### C VDTBH #### [facility] [address] [place] [address] Dr. Diann Dickerson MONO # 0.5 103/ul Normal 0.3-0.8 [facility] Comment on above: Performed By: #### C VDTBH #### [facility] [address] [place] [address] Dr. Diann Dickerson Monocytes/100 WBC (Bld) 5.3 % Normal 1.7-12.0 [facility] Comment on above: Performed By: #### C VDTBH #### [facility] [address] [place] [address] Dr. Diann Dickerson NEUT # 7.6 103/ul Critically high 1.4-6.5 [facility] Comment on above: Performed By: #### C VDTBH #### [facility] [address] [place] [address] Dr. Diann Dickerson Neutrophils/100 WBC (Bld) 85.5 % Critically high 43.0-75.0 [facility] Comment on above: Performed By: #### C VDTBH #### [facility] [address] [place] [address] Dr. Diann Dickerson Platelet mean volume (Bld) [Entitic vol] 10.2 fL Normal 9.5-13.5 [facility] Comment on above: Performed By: #### C VDTBH #### [facility] [address] [place] [address] Dr. Diann Dickerson PLT 198 103/ul Normal 150-450 [facility] Comment on above: Performed By: #### C VDTBH #### [facility] [address] [place] [address] Dr. Diann Dickerson RBC 3.78 106/ul Critically low 4.20-5.40 [facility] Comment on above: Performed By: #### C VDTBH #### [facility] [address] [place] [address] Dr. Diann Dickerson WBC 8.9 103/ul Normal 4.0-11.0 [facility] Comment on above: Performed By: #### C VDTBH #### [facility] [address] [place] [address] Dr. Diann Dickerson CREATININEon 01-18-2022 Creatinine [Mass/Vol] 0.53 mg/dL Critically low 0.55-1.02 [facility] Comment on above: Performed By: #### C VDTBH #### [facility] [address] [place] [address] Dr. Diann Dickerson EGFR-AF [place]LANDER >60 Normal >=60 [facility] Comment on above: Performed By: #### C VDTBH #### [facility] [address] [place] [address] Dr. Diann Dickerson EGFR-NON AF [place]ER >60 Normal >=60 [facility] Comment on above: Performed By: #### C VDTBH #### [facility] [address] [place] [address] Dr. Diann Dickerson ELECTROLYTESon 01-18-2022 Anion gap [Moles/Vol] 9.6 mmol/L Normal [facility] Comment on above: Performed By: #### C VDTBH #### [facility] [address] [place] [address] Dr. Diann Dickerson Chloride [Moles/Vol] 106 mmol/L Normal 98-107 [facility] Comment on above: Performed By: #### C VDTBH #### [facility] [address] [place] [address] Dr. Diann Dickerson CO2 [Moles/Vol] 23.5 mmol/L Normal 21.0-32.0 [facility] Comment on above: Performed By: #### C VDTBH #### [facility] [address] [place] [address] Dr. Diann Dickerson Potassium [Moles/Vol] 4.1 mmol/L Normal 3.5-5.1 [facility] Comment on above: Performed By: #### C VDTBH #### [facility] [address] [place] [address] Dr. Diann Dickerson Sodium [Moles/Vol] 135 mmol/L Critically low 136-145 [facility] Comment on above: Performed By: #### C VDTBH #### [facility] [address] [place] [address] Dr. Diann Dickerson SGOTon 01-18-2022 AST [Catalytic activity/Vol] 15 U/L Normal 15-37 [facility] Comment on above: Performed By: #### C VDTBH #### [facility] [address] [place] [address] Dr. Diann Dickerson SGPTon 01-18-2022 ALT [Catalytic activity/Vol] 19 U/L Normal 14-59 [facility] Comment on above: Performed By: #### C VDTBH #### [facility] [address] [place] [address] Dr. Diann Dickerson TSHon 01-18-2022 TSH 1.409 uIU/mL Normal 0.470-4.680 [facility] Comment on above: Performed By: #### C VDTBH #### [facility] [address] [place] [address] Dr. Diann Dickerson TSH RANGE SEE BELOW Normal [facility] Comment on above: Result Comment: <0.3 4 UIU/ml HYPERTHYROID 0.34-5.60 UIU/ml EUTHYROID >5.60 UIU/ml HYPOTHYROID Performed By: #### C VDTBH #### [facility] [address] [place] [address] Dr. Diann Dickerson UA (CLEAN/CATCH) CAR PACKER/MICRO I F IND.on 01-18-2022 Bilirubin Ql (U) Negative Normal NEGATIVE [facility] Comment on above: Performed By: #### U ACSIND #### [facility] [address] [place] [address] Dr. Diann Dickerson Clarity (U) CLEAR Normal CLEAR [facility] Comment on above: Performed By: #### U ACSIND #### [facility] [address] [place] [address] Dr. Diann Dickerson Color (U) YELLOW Normal YELLOW [facility] Comment on above: Performed By: #### U ACSIND #### [facility] [address] [place] [address] Dr. Diann Dickerson Glucose Ql (U) Negative Normal NEGATIVE [facility] Comment on above: Performed By: #### U ACSIND #### [facility] [address] [place] [address] Dr. Diann Dickerson Hemoglobin Ql (U) Negative Normal NEGATIVE [facility] Comment on above: Performed By: #### U ACSIND #### [facility] [address] [place] [address] Dr. Diann Dickerson Ketones Ql (U) Negative Normal NEGATIVE [facility] Comment on above: Performed By: #### U ACSIND #### [facility] [address] [place] [address] Dr. Diann Dickerson LEUKOCYTES Negative Normal NEGATIVE [facility] Comment on above: Performed By: #### U ACSIND #### [facility] [address] [place] [address] Dr. Diann Dickerson Nitrite Ql (U) Negative Normal NEGATIVE [facility] Comment on above: Performed By: #### U ACSIND #### [facility] [address] [place] [address] Dr. Diann Dickerson pH (U) 8.5 [pH] Normal 5-9 [facility] Comment on above: Performed By: #### U ACSIND #### [facility] [address] [address] [address] Diann Dickerson SPEC GRAVITY 1.015 Normal 1.005-<=1.025 [facility] Comment on above: Performed By: #### U ACSIND #### [facility] [address] [place] [address] Dr. Diann Dickerson UA PROTEIN Negative Normal NEGATIVE/ TRACE [facility] Comment on above: Performed By: #### U ACSIND #### [facility] [address] [address] [address] Diann Dickerson UR MICRO IND NOT INDICATED Normal [facility] Comment on above: Performed By: #### U ACSIND #### [facility] [address] [place] [address] Dr. Diann Dickerson Urobilinogen Qn (U) 0.2 {Guy'U}/dL Normal 0.2 - 1. 0 [facility] Comment on above: Performed By: #### U ACSIND #### [facility] [address] [place] [address] Dr. Diann Dickerson US PREG BIOPHY W [...] MARBIN MCKEON Date: 2022-01-18 10:45 Normal [facility] US PREG CERVICAL LENGTHon US PREG CERVICAL LENGTH EXAMINATION: US PREG CERVICAL LENGTH HISTORY: Nausea and vomiting COMPARISON: 12/31/2021 FINDINGS: position: Cephalic Heart rate: 141 bpm Cervix: 4.7 cm, closed Clinical age: 20 weeks 5 days Clinical ANGELA: 04/07/2022 IMPRESSION: Closed cervix measuring 4.7 cm in length Electronically authenticated by: MARBIN MCKEON Date: 2022-01-18 10:46 Normal [facility] CULTURE URINEon 12-31-2021 CULTURE URINE Culture Observations : No growth Normal [facility] Comment on above: Performed By: #### C BC #### [facility] [address] [place] [address] Dr. Diann Dickerson US PREG AMNIOTIC FLUID [...] DEL RIO Date: 2021-12-31 12:41 Normal [facility] GLUCOSE - 1HRon 12-17-2021 Glucose [Mass/Vol] 134 mg/dL Critically high 74-106 [facility] Comment on above: Performed By: #### G LU1HR #### [facility] [address] [place] [address] Dr. Diann Dickerson HEMOGRAM AND PLATELon 2021 Hematocrit (Bld) [Volume fraction] 36.7 % Normal 36.0-48.0 [facility] Comment on above: Performed By: #### C BC #### [facility] [address] [place] [address] Dr. Diann Dickerson Hemoglobin (Bld) [Mass/Vol] 12.5 g/dL Normal 12.0-16.0 [facility] Comment on above: Performed By: #### C BC #### [facility] [address] [place] [address] Dr. Diann Dickerson MCH (RBC) [Entitic mass] 33.2 pg Normal 26.7-34.0 [facility] Comment on above: Performed By: #### C BC #### [facility] [address] [place] [address] Dr. Diann Dickerson MCHC (RBC) [Mass/Vol] 34.1 g/dL Normal 29.9-35.2 [facility] Comment on above: Performed By: #### C BC #### [facility] [address] [address] [address] Diann Dickerson MCV (RBC) [Entitic vol] 97.6 fL Normal 81.0-99.0 [facility] Comment on above: Performed By: #### C BC #### [facility] [address] [address] [address] Diann Dickerson PLT 207 103/ul Normal 150-450 [facility] Comment on above: Performed By: #### C BC #### [facility] [address] [address] [address] Diann Dickerson RBC 3.76 106/ul Critically low 4.20-5.40 [facility] Comment on above: Performed By: #### C BC #### [facility] [address] [address] [address] Diann Dickerson WBC 6.3 103/ul Normal 4.0-11.0 [facility] Comment on above: Performed By: #### C BC #### [facility] [address] [place] [address] Dr. Diann Dickerson US PREG ANATOMY SINGLEon [...] FL: 3.4 cm 20 weeks 5 days EFW:[id number]; FL/AC: 0.528579 [place]/BPD: 0.948618 HC/AC: 1.699862 GESTATIONAL AGE: Age by EDC: 20 weeks 1 day ANGELA by EDC: 04/07/2022 Age by current US: 20 weeks 4 day ANGELA by current US: 04/04/2022 IMPRESSION: Normal anatomy scan *Reference: [employer] Practice Guideline for the performance of Obstetric Ultrasound Examinations, June 22, 2007. Electronically authenticated by: MARBIN MCKEON Date: 2021-11-20 07:34 Normal [facility] Encounters Encounter Date Encounter Type Care Provider Facility Start: 08-11-2023 End: 08-11-2023 ambulatory [facility] Not Available Start: 10-21-2022 End: 10-21-2022 ambulatory [...] VAZQUEZ Payers Date Payer Category Payer Unknown [id number] 2.16.84 [id number] 1994 Unknown [id number] 2.16.84 [id number] 1994 Unknown [id number] 2.16.84 [id number] 1994 Unknown [id number] 2.16.84 [id number] 1994 Unknown [id number] 2.16.84 [id number] 1994 Unknown [id number] 2.16.84 [id number] 1994 Unknown [id number] 2.16.84 [id number] 1994 Unknown [id number] 2.16.84 [id number] 1994 Unknown [id number] 2.16.84 [id number] 1994 Unknown [id number] 2.16.84 [id number] 1994 Unknown [id number] 2.16.84 [id number] 1959 Unknown [id number] 1960 Unknown [id number] 1960 Unknown [id number] Clinical Note 11-19-2021 Note Date & Type Note Facility 11-19-2021 Note PROCEDURE: XR WRIST LT MIN 3 V COMPARISON: None. HISTORY: Pain of left wrist FINDINGS: BONES:No fracture, acute abnormality, or significant arthropathy. SOFT TISSUES:Negative. No visible soft tissue swelling. EFFUSION:None visible. OTHER: Negative. IMPRESSION: No acute abnormality Electronically authenticated by: MARBIN MCKEON Date: 2021-11-19 13:16 [facility] Summary Purpose Family History No Family History Records FoundNo Family History Records Found Advance Directives No Advanced Directives Records FoundNo Advanced Directives Records Found Additional Source Comments INFORMATION SOURCE (unrecogn ized section and content) DATE CREATED AUTHOR 10/24/2022 [facility] DATE CREATED AUTHOR AUTHOR'S ORGANIZ ATION 08/12/2023 [facility] FOR RECORDS PERTAINING TO PATIENTS WHO [...] BE BASED ON THE PRIMARY CLINICAL RECORDS. [facility] [employer] provides no warranty or guarantee of the accuracy or completeness of information in this document.
[2023-11-14 11:10] LABS: HCG Quantitative 3124 mIU/mL
== END 2023-11-14 10:08 | disposition home or self-care (01) ==
LOC: LAB 10:07
PROVIDERS: PCP Family Medicine; Visit Provider Obstetrics & Gynecology
DX: N92.6 Irregular menstruation, unspecified (principal)
CPT/HCPCS: 36415; 84702

== ENCOUNTER 2023-11-17 08:46 | Outpatient (OUT) | payer BC, OTHER, SELFPAY ==
--- OUTSIDE RECORDS SUMMARY | 2023-11-17 09:06 | XMS_ITS | CCD ---
Author Name Unknown Address [address] [place] [address] Organization [facility] Care Team Providers Care Acting Section Chief Name Role Phone TAYLOR, DR PLATT Attending [...] 10-21-2022 BASO # 0.0 103/ul Normal 0.0-0.1 [facility] Comment on above: Performed By: #### C BC #### [facility] [address] [place] [address] Dr. Diann Dickerson Basophils/100 WBC (Bld) 0.4 % Normal 0.2-2.0 [facility] Comment on above: Performed By: #### C BC #### [facility] [address] [place] [address] Dr. Diann Dickerson EO # 0.0 103/ul Normal 0.0-0.7 [facility] Comment on above: Performed By: #### C BC #### [facility] [address] [place] [address] Dr. Diann Dickerson Eosinophils/100 WBC (Bld) 0.8 % Critically low 0.9-7.0 [facility] Comment on above: Performed By: #### C BC #### [facility] [address] [place] [address] Dr. Diann Dickerson Erythrocyte distribution width (RBC) [Ratio] 11.0 % Normal 11.0-15.0 [facility] Comment on above: Performed By: #### C BC #### [facility] [address] [place] [address] Dr. Diann Dickerson Hematocrit (Bld) [Volume fraction] 38.0 % Normal 36.0-48.0 [facility] Comment on above: Performed By: #### C BC #### [facility] [address] [place] [address] Dr. Diann Dickerson Hemoglobin (Bld) [Mass/Vol] 13.6 g/dL Normal 12.0-16.0 [facility] Comment on above: Performed By: #### C BC #### [facility] [address] [place] [address] Dr. Diann Dickerson IG # 0.02 10e3/ul Normal 0.00-0.03 [facility] Comment on above: Performed By: #### C BC #### [facility] [address] [place] [address] Dr. Diann Dickerson IG % 0.4 % Normal 0.0-0.5 [facility] Comment on above: Performed By: #### C BC #### [facility] [address] [place] [address] Dr. Diann Dickerson LYMPH # 2.0 103/ul Normal 1.2-3.8 [facility] Comment on above: Performed By: #### C BC #### [facility] [address] [place] [address] Dr. Diann Dickerson Lymphocytes/100 WBC (Bld) 38.2 % Normal 20.5-60.0 [facility] Comment on above: Performed By: #### C BC #### [facility] [address] [place] [address] Dr. Diann Dickerson MANUAL DIFF REQ NO Normal [facility] Comment on above: Performed By: #### C BC #### [facility] [address] [place] [address] Dr. Diann Dickerson MCH (RBC) [Entitic mass] 31.6 pg Normal 26.7-34.0 [facility] Comment on above: Performed By: #### C BC #### [facility] [address] [place] [address] Dr. Diann Dickerson MCHC (RBC) [Mass/Vol] 35.8 g/dL Critically high 29.9-35.2 [facility] Comment on above: Performed By: #### C BC #### [facility] [address] [place] [address] Dr. Diann Dickerson MCV (RBC) [Entitic vol] 88.2 fL Normal 81.0-99.0 [facility] Comment on above: Performed By: #### C BC #### [facility] [address] [place] [address] Dr. Diann Dickerson MONO # 0.4 103/ul Normal 0.3-0.8 [facility] Comment on above: Performed By: #### C BC #### [facility] [address] [place] [address] Dr. Diann Dickerson Monocytes/100 WBC (Bld) 7.7 % Normal 1.7-12.0 [facility] Comment on above: Performed By: #### C BC #### [facility] [address] [place] [address] Dr. Diann Dickerson NEUT # 2.7 103/ul Normal 1.4-6.5 [facility] Comment on above: Performed By: #### C BC #### [facility] [address] [place] [address] Dr. Diann Dickerson Neutrophils/100 WBC (Bld) 52.5 % Normal 43.0-75.0 [facility] Comment on above: Performed By: #### C BC #### [facility] [address] [place] [address] Dr. Diann Dickerson Platelet mean volume (Bld) [Entitic vol] 10.3 fL Normal 9.5-13.5 [facility] Comment on above: Performed By: #### C BC #### [facility] [address] [place] [address] Dr. Diann Dickerson PLT 251 103/ul Normal 150-450 [facility] Comment on above: Performed By: #### C BC #### [facility] [address] [place] [address] Dr. Diann Dickerson RBC 4.31 106/ul Normal 4.20-5.40 [facility] Comment on above: Performed By: #### C BC #### [facility] [address] [place] [address] Dr. Diann Dickerson WBC 5.2 103/ul Normal 4.0-11.0 [facility] Comment on above: Performed By: #### C BC #### [facility] [address] [place] [address] Dr. Diann Dickerson ER URINE PROFILEon 3 Bilirubin Ql (U) Negative Normal NEGATIVE [facility] Comment on above: Performed By: #### P JNOATHAN, ERUR #### [facility] [address] [place] [address] Dr. Diann Dickerson Clarity (U) CLEAR Normal CLEAR [facility] Comment on above: Performed By: #### P REGU, ERUR #### [facility] [address] [place] [address] Dr. Diann Dickerson Color (U) YELLOW Normal YELLOW [facility] Comment on above: Performed By: #### P SHANTAU, ERUR #### [facility] [address] [place] [address] Dr. Diann Dickerson ERUAHD A micrscopic examination will be performed if indicated. Normal [facility] Comment on above: Performed By: #### P SHANTAU, ERUR #### [facility] [address] [address] [address] Diann Dickerson Glucose Ql (U) Negative Normal NEGATIVE [facility] Comment on above: Performed By: #### P REGU, ERUR #### [facility] [address] [address] [address] Diann Dickerson Hemoglobin Ql (U) Negative Normal NEGATIVE [facility] Comment on above: Performed By: #### P REGU, ERUR #### [facility] [address] [address] [address] Diann Dickerson Ketones Ql (U) Negative Normal NEGATIVE [facility] Comment on above: Performed By: #### P REGU, ERUR #### [facility] [address] [place] [address] Dr. Diann Dickerson LEUKOCYTES Negative Normal NEGATIVE [facility] Comment on above: Performed By: #### P REGU, ERUR #### [facility] [address] [place] [address] Dr. Diann Dickerson Nitrite Ql (U) Negative Normal NEGATIVE [facility] Comment on above: Performed By: #### P REGU, ERUR #### [facility] [address] [place] [address] Dr. Diann Dickerson pH (U) 6.0 [pH] Normal 5-9 [facility] Comment on above: Performed By: #### P REGU, ERUR #### [facility] [address] [place] [address] Dr. Diann Dickerson SPEC GRAVITY 1.015 Normal 1.005-<=1.025 [facility] Comment on above: Performed By: #### P REGU, ERUR #### [facility] [address] [place] [address] Dr. Diann Dickerson UA PROTEIN Negative Normal NEGATIVE/ TRACE [facility] Comment on above: Performed By: #### P REGU, ERUR #### [facility] [address] [place] [address] Dr. Diann Dickerson UR MICRO IND NOT INDICATED Normal [facility] Comment on above: Performed By: #### P REGU, ERUR #### [facility] [address] [place] [address] Dr. Diann Dickerson Urobilinogen Qn (U) 1.0 {Guy'U}/dL Normal 0.2 - 1. 0 [facility] Comment on above: Performed By: #### P REGU, ERUR #### [facility] [address] [place] [address] Dr. Diann Dickerson GROUP A STREP CULTUREon 09-24 S. pyogenes Ag Ql (Unsp spec) Culture Observations: NEGATIVE FOR GROUP A STREPTOCOCCUS. Normal [facility] Comment on above: Performed By: #### G RASTCX, SSCRN #### [facility] [address] [place] [address] Dr. Diann Dickerson URon 10-21-2022 , QUAL Negative Normal NEGATIVE [facility] Comment on above: Performed By: #### P REGU, ERUR #### [facility] [address] [place] [address] Dr. Diann Dickerson PROF CHEM 8 (BAS METB)on Anion gap [Moles/Vol] 12.1 mmol/L Normal [facility] Comment on above: Performed By: #### C BC #### [facility] [address] [place] [address] Dr. Diann Dickerson Calcium [Mass/Vol] 9.3 mg/dL Normal 8.5-10.1 [facility] Comment on above: Performed By: #### C BC #### [facility] [address] [place] [address] Dr. Diann Dickerson Chloride [Moles/Vol] 101 mmol/L Normal 98-107 [facility] Comment on above: Performed By: #### C BC #### [facility] [address] [place] [address] Dr. Diann Dickerson CO2 [Moles/Vol] 28.3 mmol/L Normal 21.0-32.0 [facility] Comment on above: Performed By: #### C BC #### [facility] [address] [place] [address] Dr. Diann Dickerson Creatinine [Mass/Vol] 0.61 mg/dL Normal 0.55-1.02 [facility] Comment on above: Performed By: #### C BC #### [facility] [address] [address] [address] Diann Dickerson EGFR-AF MICRONESIAN >60 Normal >=60 [facility] Comment on above: Performed By: #### C BC #### [facility] [address] [address] [address] Diann Dickerson EGFR-NON AF MICRONESIAN >60 Normal >=60 [facility] Comment on above: Performed By: #### C BC #### [facility] [address] [address] [address] Diann Dickerson Glucose [Mass/Vol] 122 mg/dL Critically high 74-106 [facility] Comment on above: Performed By: #### C BC #### [facility] [address] [address] [address] Diann Dickerson Potassium [Moles/Vol] 3.4 mmol/L Critically low 3.5-5.1 [facility] Comment on above: Performed By: #### C BC #### [facility] [address] [address] [address] Diann Dickerson Sodium [Moles/Vol] 138 mmol/L Normal 136-145 [facility] Comment on above: Performed By: #### C BC #### [facility] [address] [address] [address] Diann Dickerson Urea nitrogen [Mass/Vol] 5.0 mg/dL Critically low 7.0-18.0 [facility] Comment on above: Performed By: #### C BC #### [facility] [address] [address] [address] Diann Dickerson Urea nitrogen/Creatinine [Mass ratio] 8.2 mg/mg Normal [facility] Comment on above: Performed By: #### C BC #### [facility] [address] [address] [address] Diann Dickerson STREPT SCREENon 10-21-2022 STREP SCREEN A Negative Normal NEGATIVE [facility] Comment on above: Performed By: #### G RASTCX, SSCRN #### [facility] [address] [address] [address] Diann Dickerson Covid-19 PCR ([facility])on 09-23 SARS-CoV-2 (COVID-19) RNA PREMA+probe Ql (Unsp spec) Not detected Normal NOT DETECTED [facility] Comment on above: Result Comment: This test is not yet approved or cleared by the [place] FDA. When there are no FDA-approved or cleared tests available, and other criteria are met, FDA can make tests available under an emergency access mechanism called an Emergency Use Authorization (EUA). The EUA for this test is supported by the [place] of Health and Human Service's (HHS's) declaration [...] SARS-CoV-2. Performed By: #### C VDTBH #### [facility] [address] [place] [address] Dr. Diann Dickerson INFLUENZA A AND B AGon 10-17 [facility] SEE BELOW Normal [facility] Comment on above: Result Comment: Nega tive for Flu A protein angiten. Infection due to Flu A cannot be ruled out. Flu A angiten in the sample may be below the detection limit of the test. Performed By: #### U ACSIND #### [facility] [address] [place] [address] Dr. Diann Dickerson INFLUBNEG SEE BELOW Normal [facility] Comment on above: Result Comment: Nega tive for Flu B protein antigen. Infection due to Flu B cannot be ruled out. Flu B antigen in the sample may be below the detection limit of the test. Performed By: #### U ACSIND #### [facility] [address] [place] [address] Dr. Diann Dickerson INFLUENZA A AG Negative Normal NEGATIVE SEE COMMENT [facility] Comment on above: Performed By: #### U ACSIND #### [facility] [address] [place] [address] Dr. Diann Dickerson INFLUENZA B AG Negative Normal NEGATIVE SEE COMMENT [facility] Comment on above: Performed By: #### U ACSIND #### [facility] [address] [place] [address] Dr. Diann Dickerson CBC AUTO DIFFon 04-02-2022 BASO # 0.0 103/ul Normal 0.0-0.1 [facility] Comment on above: Performed By: #### C VDTBH #### [facility] [address] [place] [address] Dr. Diann Dickerson Basophils/100 WBC (Bld) 0.4 % Normal 0.2-2.0 [facility] Comment on above: Performed By: #### C VDTBH #### [facility] [address] [place] [address] Dr. Diann Dickerson EO # 0.1 103/ul Normal 0.0-0.7 [facility] Comment on above: Performed By: #### C VDTBH #### [facility] [address] [place] [address] Dr. Diann Dickerson Eosinophils/100 WBC (Bld) 0.6 % Critically low 0.9-7.0 [facility] Comment on above: Performed By: #### C VDTBH #### [facility] [address] [place] [address] Dr. Diann Dickerson Erythrocyte distribution width (RBC) [Ratio] 12.3 % Normal 11.0-15.0 [facility] Comment on above: Performed By: #### C VDTBH #### [facility] [address] [place] [address] Dr. Diann Dickerson Hematocrit (Bld) [Volume fraction] 35.5 % Critically low 36.0-48.0 [facility] Comment on above: Performed By: #### C VDTBH #### [facility] [address] [place] [address] Dr. Diann Dickerson Hemoglobin (Bld) [Mass/Vol] 12.3 g/dL Normal 12.0-16.0 [facility] Comment on above: Performed By: #### C VDTBH #### [facility] [address] [place] [address] Dr. Diann Dickerson IG # 0.07 10e3/ul Critically high 0.00-0.03 [facility] Comment on above: Performed By: #### C VDTBH #### [facility] [address] [place] [address] Dr. Diann Dickerson IG % 0.7 % Critically high 0.0-0.5 [facility] Comment on above: Performed By: #### C VDTBH #### [facility] [address] [place] [address] Dr. Diann Dickerson LYMPH # 1.3 103/ul Normal 1.2-3.8 [facility] Comment on above: Performed By: #### C VDTBH #### [facility] [address] [place] [address] Dr. Diann Dickerson Lymphocytes/100 WBC (Bld) 13.9 % Critically low 20.5-60.0 [facility] Comment on above: Performed By: #### C VDTBH #### [facility] [address] [place] [address] Dr. Diann Dickerson MANUAL DIFF REQ NO Normal [facility] Comment on above: Performed By: #### C VDTBH #### [facility] [address] [place] [address] Dr. Diann Dickerson MCH (RBC) [Entitic mass] 34.1 pg Critically high 26.7-34.0 [facility] Comment on above: Performed By: #### C VDTBH #### [facility] [address] [place] [address] Dr. Diann Dickerson MCHC (RBC) [Mass/Vol] 34.6 g/dL Normal 29.9-35.2 [facility] Comment on above: Performed By: #### C VDTBH #### [facility] [address] [address] [address] Diann Dickerson MCV (RBC) [Entitic vol] 98.3 fL Normal 81.0-99.0 [facility] Comment on above: Performed By: #### C VDTBH #### [facility] [address] [place] [address] Dr. Diann Dickerson MONO # 1.0 103/ul Critically high 0.3-0.8 [facility] Comment on above: Performed By: #### C VDTBH #### [facility] [address] [place] [address] Dr. Diann Dickerson Monocytes/100 WBC (Bld) 10.5 % Normal 1.7-12.0 [facility] Comment on above: Performed By: #### C VDTBH #### [facility] [address] [place] [address] Dr. Diann Dickerson NEUT # 6.9 103/ul Critically high 1.4-6.5 [facility] Comment on above: Performed By: #### C VDTBH #### [facility] [address] [place] [address] Dr. Diann Dickerson Neutrophils/100 WBC (Bld) 73.9 % Normal 43.0-75.0 [facility] Comment on above: Performed By: #### C VDTBH #### [facility] [address] [place] [address] Dr. Dinan Dickerson Platelet mean volume (Bld) [Entitic vol] 10.8 fL Normal 9.5-13.5 [facility] Comment on above: Performed By: #### C VDTBH #### [facility] [address] [place] [address] Dr. Diann Dickerson PLT 177 103/ul Normal 150-450 [facility] Comment on above: Performed By: #### C VDTBH #### [facility] [address] [place] [address] Dr. Diann Dickerson RBC 3.61 106/ul Critically low 4.20-5.40 [facility] Comment on above: Performed By: #### C VDTBH #### [facility] [address] [address] [address] Diann Dickerson WBC 9.4 103/ul Normal 4.0-11.0 [facility] Comment on above: Performed By: #### C VDTBH #### [facility] [address] [address] [address] Diann Dickerson CBC AUTO DIFFon 04-01-2022 BASO # 0.0 103/ul Normal 0.0-0.1 [facility] Comment on above: Performed By: #### C BC #### [facility] [address] [address] [address] Diann Dickerson Basophils/100 WBC (Bld) 0.3 % Normal 0.2-2.0 [facility] Comment on above: Performed By: #### C BC #### [facility] [address] [place] [address] Dr. Diann Dickerson EO # 0.1 103/ul Normal 0.0-0.7 [facility] Comment on above: Performed By: #### C BC #### [facility] [address] [address] [address] Diann Dickerson Eosinophils/100 WBC (Bld) 0.6 % Critically low 0.9-7.0 [facility] Comment on above: Performed By: #### C BC #### [facility] [address] [place] [address] Dr. Diann Dickerson Erythrocyte distribution width (RBC) [Ratio] 12.4 % Normal 11.0-15.0 [facility] Comment on above: Performed By: #### C BC #### [facility] [address] [place] [address] Dr. Diann Dickerson Hematocrit (Bld) [Volume fraction] 38.0 % Normal 36.0-48.0 [facility] Comment on above: Performed By: #### C BC #### [facility] [address] [place] [address] Dr. Diann Dickerson Hemoglobin (Bld) [Mass/Vol] 13.1 g/dL Normal 12.0-16.0 [facility] Comment on above: Performed By: #### C BC #### [facility] [address] [place] [address] Dr. Diann Dickerson IG # 0.07 10e3/ul Critically high 0.00-0.03 [facility] Comment on above: Performed By: #### C BC #### [facility] [address] [place] [address] Dr. Diann Dickerson IG % 0.7 % Critically high 0.0-0.5 [facility] Comment on above: Performed By: #### C BC #### [facility] [address] [place] [address] Dr. Diann Dickerson LYMPH # 1.5 103/ul Normal 1.2-3.8 [facility] Comment on above: Performed By: #### C BC #### [facility] [address] [place] [address] Dr. Diann Dickerson Lymphocytes/100 WBC (Bld) 15.6 % Critically low 20.5-60.0 [facility] Comment on above: Performed By: #### C BC #### [facility] [address] [place] [address] Dr. Diann Dickerson MANUAL DIFF REQ NO Normal [facility] Comment on above: Performed By: #### C BC #### [facility] [address] [place] [address] Dr. Diann Dickerson MCH (RBC) [Entitic mass] 33.8 pg Normal 26.7-34.0 [facility] Comment on above: Performed By: #### C BC #### [facility] [address] [place] [address] Dr. Diann Dickerson MCHC (RBC) [Mass/Vol] 34.5 g/dL Normal 29.9-35.2 [facility] Comment on above: Performed By: #### C BC #### [facility] [address] [place] [address] Dr. Diann Dickerson MCV (RBC) [Entitic vol] 97.9 fL Normal 81.0-99.0 [facility] Comment on above: Performed By: #### C BC #### [facility] [address] [address] [address] Diann Dickerson MONO # 0.8 103/ul Normal 0.3-0.8 [facility] Comment on above: Performed By: #### C BC #### [facility] [address] [address] [address] Diann Dickerson Monocytes/100 WBC (Bld) 8.2 % Normal 1.7-12.0 [facility] Comment on above: Performed By: #### C BC #### [facility] [address] [address] [address] Diann Dickerson NEUT # 7.1 103/ul Critically high 1.4-6.5 [facility] Comment on above: Performed By: #### C BC #### [facility] [address] [place] [address] Dr. Diann Dickerson Neutrophils/100 WBC (Bld) 74.6 % Normal 43.0-75.0 [facility] Comment on above: Performed By: #### C BC #### [facility] [address] [place] [address] Dr. Diann Dickerson Platelet mean volume (Bld) [Entitic vol] 10.7 fL Normal 9.5-13.5 [facility] Comment on above: Performed By: #### C BC #### [facility] [address] [place] [address] Dr. Diann Dickerson PLT 172 103/ul Normal 150-450 [facility] Comment on above: Performed By: #### C BC #### [facility] [address] [place] [address] Dr. Diann Dickerson RBC 3.88 106/ul Critically low 4.20-5.40 [facility] Comment on above: Performed By: #### C BC #### [facility] [address] [address] [address] Diann Dickerson WBC 9.5 103/ul Normal 4.0-11.0 [facility] Comment on above: Performed By: #### C BC #### [facility] [address] [place] [address] Dr. Diann Dickerson Covid-19 PCR ([facility])on 03-22 SARS-CoV-2 (COVID-19) RNA PREMA+probe Ql ([facility] spec) Not detected Normal NOT DETECTED [facility] Comment on above: Result Comment: When diagnostic [...] for this test is supported by the [employer] of Health and Human Service's declaration that [...] used). Performed By: #### C VDTBH #### [facility] [address] [place] [address] Dr. Diann Dickerson DRUG SCREEN RAPID (URINE)on 04-01-2022 AMP Negative Normal NEGATIVE [facility] Comment on above: Performed By: #### C BC #### [facility] [address] [place] [address] Dr. Diann Dickerson BAR Negative Normal NEGATIVE [facility] Comment on above: Performed By: #### C BC #### [facility] [address] [place] [address] Dr. Diann Dickerson BUP Negative Normal NEGATIVE [facility] Comment on above: Performed By: #### C BC #### [facility] [address] [place] [address] Dr. Diann Dickerson BZO Negative Normal NEGATIVE [facility] Comment on above: Performed By: #### C BC #### [facility] [address] [place] [address] Dr. Diann Dickerson KRYS Negative Normal NEGATIVE [facility] Comment on above: Performed By: #### C BC #### [facility] [address] [place] [address] Dr. Diann Dickerson CUT-OFFS SEE BELOW Normal [facility] Comment on above: Result Comment: AMP (Amphetamine): 500ng/mL, BAR (Barbituates): 200 ng/mL, BZO (Benzodiazepines): 150 ng/mL, BUP (Buprenorphine): 10 ng/mL, KRYS (Cocaine): 150 ng/mL, mAMP (Methamphetamine): 500 ng/mL, MTD (Methadone): 200 ng/mL, OPI (Opiates): 100 ng/mL, OXY (Oxycodone): 100 ng/mL, PCP (Phencyclidine): 25 ng/mL, PPX (Propoxyphene): 300 ng/mL, THC (Cannabinoids): 50 ng/mL, TCA (Trycyclic Antidepressants): 300 ng/mL Performed By: #### C BC #### [facility] [address] [place] [address] Dr. Diann Dickerson DRUG CUT HEADER DRUG CLASS TEST SYSTEM CUT-OFF CONCENTRATIONS ARE FOLLOWS: Normal [facility] Comment on above: Performed By: #### C BC #### [facility] [address] [place] [address] Dr. Diann Dickerson mAMP Negative Normal NEGATIVE [facility] Comment on above: Performed By: #### C BC #### [facility] [address] [place] [address] Dr. Diann Dickerson MTD Negative Normal NEGATIVE [facility] Comment on above: Performed By: #### C BC #### [facility] [address] [place] [address] Dr. Diann Dickerson OPI Negative Normal NEGATIVE [facility] Comment on above: Performed By: #### C BC #### [facility] [address] [place] [address] Dr. Diann Dickerson OXY Negative Normal NEGATIVE [facility] Comment on above: Performed By: #### C BC #### [facility] [address] [place] [address] Dr. Diann Dickerson PCP Negative Normal NEGATIVE [facility] Comment on above: Performed By: #### C BC #### [facility] [id number] [address] Diann Dickerson PPX Negative Normal NEGATIVE [facility] Comment on above: Performed By: #### C BC #### [facility] [address] [place], [place] [address] Dr. Diann Dickerson TCA Negative Normal NEGATIVE [facility] Comment on above: Performed By: #### C BC #### [facility] [address] [place], [place] [address] Dr. Diann Dickerson THC Negative Normal NEGATIVE [facility] Comment on above: Performed By: #### C BC #### [facility] [address] [place], [place] [id number] Dr. Diann Dickerson GROUP B STREP CULTUREon [...] >=16 R F Normal [facility] Comment on above: Performed By: #### C BC #### [facility] [address] [place], [place] [id number] Dr. Diann Dickerson US PREG GROWTHon 03-04-2022 [...] DEL RIO Date: 2022-03-04 17:33 Normal [facility] AMYLASEon 01-18-2022 Amylase [Catalytic activity/Vol] 30 U/L Normal 25-115 [facility] Comment on above: Performed By: #### C VDTBH #### [facility] [address] [place] [address] Dr. Diann Dickerson BUNon 01-18-2022 Urea nitrogen [Mass/Vol] 7.0 mg/dL Normal 7.0-18.0 [facility] Comment on above: Performed By: #### C VDTBH #### [facility] [address] [place] [address] Dr. Diann Dickerson CBC AUTO DIFFon 01-18-2022 BASO # 0.0 103/ul Normal 0.0-0.1 [facility] Comment on above: Performed By: #### C VDTBH #### [facility] [address] [place] [address] Dr. Diann Dickerson Basophils/100 WBC (Bld) 0.3 % Normal 0.2-2.0 [facility] Comment on above: Performed By: #### C VDTBH #### [facility] [address] [place] [address] Dr. Diann Dickerson EO # 0.1 103/ul Normal 0.0-0.7 [facility] Comment on above: Performed By: #### C VDTBH #### [facility] [address] [place] [address] Dr. Diann Dickerson Eosinophils/100 WBC (Bld) 0.6 % Critically low 0.9-7.0 [facility] Comment on above: Performed By: #### C VDTBH #### [facility] [address] [place] [address] Dr. Diann Dickerson Erythrocyte distribution width (RBC) [Ratio] 12.6 % Normal 11.0-15.0 [facility] Comment on above: Performed By: #### C VDTBH #### [facility] [address] [place] [address] Dr. Diann Dickerson Hematocrit (Bld) [Volume fraction] 36.8 % Normal 36.0-48.0 [facility] Comment on above: Performed By: #### C VDTBH #### [facility] [address] [place] [address] Dr. Diann Dickerson Hemoglobin (Bld) [Mass/Vol] 12.6 g/dL Normal 12.0-16.0 [facility] Comment on above: Performed By: #### C VDTBH #### [facility] [address] [place] [address] Dr. Diann Dickerson IG # 0.06 10e3/ul Critically high 0.00-0.03 [facility] Comment on above: Performed By: #### C VDTBH #### [facility] [address] [place] [address] Dr. Diann Dickerson IG % 0.7 % Critically high 0.0-0.5 [facility] Comment on above: Performed By: #### C VDTBH #### [facility] [address] [place] [address] Dr. iDann Dickerson LYMPH # 0.7 103/ul Critically low 1.2-3.8 [facility] Comment on above: Performed By: #### C VDTBH #### [facility] [address] [place] [address] Dr. Diann Dickerson Lymphocytes/100 WBC (Bld) 7.6 % Critically low 20.5-60.0 [facility] Comment on above: Performed By: #### C VDTBH #### [facility] [address] [place] [address] Dr. Diann Dickerson MANUAL DIFF REQ NO Normal [facility] Comment on above: Performed By: #### C VDTBH #### [facility] [address] [place] [address] Dr. Diann Dickerson MCH (RBC) [Entitic mass] 33.3 pg Normal 26.7-34.0 [facility] Comment on above: Performed By: #### C VDTBH #### [facility] [address] [place] [address] Dr. Diann Dickerson MCHC (RBC) [Mass/Vol] 34.2 g/dL Normal 29.9-35.2 [facility] Comment on above: Performed By: #### C VDTBH #### [facility] [address] [place] [address] Dr. Diann Dickerson MCV (RBC) [Entitic vol] 97.4 fL Normal 81.0-99.0 [facility] Comment on above: Performed By: #### C VDTBH #### [facility] [address] [place] [address] Dr. Diann Dickerson MONO # 0.5 103/ul Normal 0.3-0.8 [facility] Comment on above: Performed By: #### C VDTBH #### [facility] [address] [place] [address] Dr. Diann Dickerson Monocytes/100 WBC (Bld) 5.3 % Normal 1.7-12.0 [facility] Comment on above: Performed By: #### C VDTBH #### [facility] [address] [place] [address] Dr. Diann Dickerson NEUT # 7.6 103/ul Critically high 1.4-6.5 [facility] Comment on above: Performed By: #### C VDTBH #### [facility] [address] [place] [address] Dr. Diann Dickerson Neutrophils/100 WBC (Bld) 85.5 % Critically high 43.0-75.0 [facility] Comment on above: Performed By: #### C VDTBH #### [facility] [address] [place] [address] Dr. Diann Dickerson Platelet mean volume (Bld) [Entitic vol] 10.2 fL Normal 9.5-13.5 [facility] Comment on above: Performed By: #### C VDTBH #### [facility] [address] [place] [address] Dr. Diann Dickerson PLT 198 103/ul Normal 150-450 [facility] Comment on above: Performed By: #### C VDTBH #### [facility] [address] [place] [address] Dr. Diann Dickerson RBC 3.78 106/ul Critically low 4.20-5.40 [facility] Comment on above: Performed By: #### C VDTBH #### [facility] [address] [place] [address] Dr. Diann Dickerson WBC 8.9 103/ul Normal 4.0-11.0 [facility] Comment on above: Performed By: #### C VDTBH #### [facility] [address] [place] [address] Dr. Diann Dickerson CREATININEon 01-18-2022 Creatinine [Mass/Vol] 0.53 mg/dL Critically low 0.55-1.02 [facility] Comment on above: Performed By: #### C VDTBH #### [facility] [address] [place] [address] Dr. Diann Dickerson EGFR-AF MICRONESIAN >60 Normal >=60 [facility] Comment on above: Performed By: #### C VDTBH #### [facility] [address] [place] [address] Dr. Diann Dickerson EGFR-NON AF MICRONESIAN >60 Normal >=60 [facility] Comment on above: Performed By: #### C VDTBH #### [facility] [address] [place] [address] Dr. Diann Dickerson ELECTROLYTESon 01-18-2022 Anion gap [Moles/Vol] 9.6 mmol/L Normal [facility] Comment on above: Performed By: #### C VDTBH #### [facility] [address] [place] [address] Dr. Diann Dickerson Chloride [Moles/Vol] 106 mmol/L Normal 98-107 [facility] Comment on above: Performed By: #### C VDTBH #### [facility] [address] [place] [address] Dr. Diann Dickerson CO2 [Moles/Vol] 23.5 mmol/L Normal 21.0-32.0 [facility] Comment on above: Performed By: #### C VDTBH #### [facility] [address] [place] [address] Dr. Diann Dickerson Potassium [Moles/Vol] 4.1 mmol/L Normal 3.5-5.1 [facility] Comment on above: Performed By: #### C VDTBH #### [facility] [address] [place] [address] Dr. Diann Dickerson Sodium [Moles/Vol] 135 mmol/L Critically low 136-145 [facility] Comment on above: Performed By: #### C VDTBH #### [facility] [address] [place] [address] Dr. Dinan Dickreson SGOTon 01-18-2022 AST [Catalytic activity/Vol] 15 U/L Normal 15-37 [facility] Comment on above: Performed By: #### C VDTBH #### [facility] [address] [place] [address] Dr. Diann Dickerson SGPTon 01-18-2022 ALT [Catalytic activity/Vol] 19 U/L Normal 14-59 [facility] Comment on above: Performed By: #### C VDTBH #### [facility] [address] [place] [address] Dr. Diann Dickerson TSHon 01-18-2022 TSH 1.409 uIU/mL Normal 0.470-4.680 [facility] Comment on above: Performed By: #### C VDTBH #### [facility] [address] [place] [address] Dr. Diann Dickerson TSH RANGE SEE BELOW Normal [facility] Comment on above: Result Comment: <0.3 4 UIU/ml HYPERTHYROID 0.34-5.60 UIU/ml EUTHYROID >5.60 UIU/ml HYPOTHYROID Performed By: #### C VDTBH #### [facility] [address] [place] [address] Dr. Diann Dickerson UA (CLEAN/CATCH) CARE COORDINATOR/MICRO I F IND.on 01-18-2022 Bilirubin Ql (U) Negative Normal NEGATIVE [facility] Comment on above: Performed By: #### U ACSIND #### [facility] [address] [place] [address] Dr. Diann Dickerson Clarity (U) CLEAR Normal CLEAR [facility] Comment on above: Performed By: #### U ACSIND #### [facility] [address] [place] [address] Dr. Diann Dickerson Color (U) YELLOW Normal YELLOW [facility] Comment on above: Performed By: #### U ACSIND #### [facility] [address] [place] [address] Dr. Diann Dickerson Glucose Ql (U) Negative Normal NEGATIVE [facility] Comment on above: Performed By: #### U ACSIND #### [facility] [address] [place] [address] Dr. Diann Dickerson Hemoglobin Ql (U) Negative Normal NEGATIVE [facility] Comment on above: Performed By: #### U ACSIND #### [facility] [address] [place] [address] Dr. Diann Dickerson Ketones Ql (U) Negative Normal NEGATIVE [facility] Comment on above: Performed By: #### U ACSIND #### [facility] [address] [place] [address] Dr. Diann Dickerson LEUKOCYTES Negative Normal NEGATIVE [facility] Comment on above: Performed By: #### U ACSIND #### [facility] [address] [place] [address] Dr. Diann Dickerson Nitrite Ql (U) Negative Normal NEGATIVE [facility] Comment on above: Performed By: #### U ACSIND #### [facility] [address] [place] [address] Dr. Diann Dickerson pH (U) 8.5 [pH] Normal 5-9 [facility] Comment on above: Performed By: #### U ACSIND #### [facility] [address] [address] [address] Diann Dickerson SPEC GRAVITY 1.015 Normal 1.005-<=1.025 [facility] Comment on above: Performed By: #### U ACSIND #### [facility] [address] [place] [address] Dr. Diann Dickerson UA PROTEIN Negative Normal NEGATIVE/ TRACE [facility] Comment on above: Performed By: #### U ACSIND #### [facility] [address] [address] [address] Diann Dickerson UR MICRO IND NOT INDICATED Normal [facility] Comment on above: Performed By: #### U ACSIND #### [facility] [address] [place] [address] Dr. Diann Dickerson Urobilinogen Qn (U) 0.2 {Guy'U}/dL Normal 0.2 - 1. 0 [facility] Comment on above: Performed By: #### U ACSIND #### [facility] [address] [place] [address] Dr. Diann Dickerson US PREG BIOPHY W [...] MARBIN MCKEON Date: 2022-01-18 10:45 Normal [facility] US PREG CERVICAL LENGTHon US PREG CERVICAL LENGTH EXAMINATION: US PREG CERVICAL LENGTH HISTORY: Nausea and vomiting COMPARISON: 12/31/2021 FINDINGS: position: Cephalic Heart rate: 141 bpm Cervix: 4.7 cm, closed Clinical age: 20 weeks 5 days Clinical ANGELA: 04/07/2022 IMPRESSION: Closed cervix measuring 4.7 cm in length Electronically authenticated by: MARBIN MCKEON Date: 2022-01-18 10:46 Normal [facility] CULTURE URINEon 12-31-2021 CULTURE URINE Culture Observations : No growth Normal [facility] Comment on above: Performed By: #### C BC #### [facility] [address] [place] [address] Dr. Diann Dickerson US PREG AMNIOTIC FLUID [...] DEL RIO Date: 2021-12-31 12:41 Normal [facility] GLUCOSE - 1HRon 12-17-2021 Glucose [Mass/Vol] 134 mg/dL Critically high 74-106 T [facility] Comment on above: Performed By: #### G LU1HR #### [facility] [address] [place] [address] Dr. Diann Dickerson HEMOGRAM AND PLATELon 2021 Hematocrit (Bld) [Volume fraction] 36.7 % Normal 36.0-48.0 [facility] Comment on above: Performed By: #### C BC #### [facility] [address] [place] [address] Dr. Diann Dickerson Hemoglobin (Bld) [Mass/Vol] 12.5 g/dL Normal 12.0-16.0 [facility] Comment on above: Performed By: #### C BC #### [facility] [address] [place] [address] Dr. Diann Dickerson MCH (RBC) [Entitic mass] 33.2 pg Normal 26.7-34.0 [facility] Comment on above: Performed By: #### C BC #### [facility] [address] [place] [address] Dr. Diann Dickerson MCHC (RBC) [Mass/Vol] 34.1 g/dL Normal 29.9-35.2 [facility] Comment on above: Performed By: #### C BC #### [facility] [address] [address] [address] Diann Dickerson MCV (RBC) [Entitic vol] 97.6 fL Normal 81.0-99.0 [facility] Comment on above: Performed By: #### C BC #### [facility] [address] [address] [address] Diann Dickerson PLT 207 103/ul Normal 150-450 [facility] Comment on above: Performed By: #### C BC #### [facility] [address] [address] [address] Diann Dickerson RBC 3.76 106/ul Critically low 4.20-5.40 [facility] Comment on above: Performed By: #### C BC #### [facility] [address] [address] [address] Diann Dickerson WBC 6.3 103/ul Normal 4.0-11.0 [facility] Comment on above: Performed By: #### C BC #### [facility] [address] [place] [address] Dr. Diann Dickerson US PREG ANATOMY SINGLEon [...] FL: 3.4 cm 20 weeks 5 days EFW:0.819119; FL/AC: 0.919654 FL/BPD: 0.577110 HC/AC: 1.101397 GESTATIONAL AGE: Age by EDC: 20 weeks 1 day ANGELA by EDC: 04/07/2022 Age by current US: 20 weeks 4 day ANGELA by current US: 04/04/2022 IMPRESSION: Normal anatomy scan *Reference: [employer] Practice Guideline for the performance of Obstetric Ultrasound Examinations, June 22, 2007. Electronically authenticated by: MARBIN MCKEON Date: 2021-11-20 07:34 Normal [facility] Encounters Encounter Date Encounter Type Care Provider [...] VAZQUEZ Payers Date Payer Category Payer Unknown [id number] 2.16.84 [id number] 1994 Unknown [id number] 2.16.84 [id number] 1994 Unknown [id number] 2.16.84 [id number] 1994 Unknown [id number] 2.16.84 [id number] 1994 Unknown [id number] 2.16.84 [id number] 1994 Unknown [id number] 2.16.84 [id number] 1994 Unknown [id number] 2.16.84 [id number] 1994 Unknown [id number] 2.16.84 [id number] 1994 Unknown [id number] 2.16.84 [id number] 1994 Unknown [id number] 2.16.84 [id number] 1994 Unknown [id number] 2.16.84 [id number] 1959 Unknown [id number] 1959 Unknown [id number] 1959 Unknown [id number] Clinical Note 11-19-2021 Note Date & Type Note Facility 11-19-2021 Note PROCEDURE: XR WRIST LT MIN 3 V COMPARISON: None. HISTORY: Pain of left wrist FINDINGS: BONES:No fracture, acute abnormality, or significant arthropathy. SOFT TISSUES:Negative. No visible soft tissue swelling. EFFUSION:None visible. OTHER: Negative. IMPRESSION: No acute abnormality Electronically authenticated by: MARBIN MCKEON Date: 2021-11-19 13:16 [facility] Summary Purpose Family History No Family History Records FoundNo Family History Records Found Advance Directives No Advanced Directives Records FoundNo Advanced Directives Records Found Additional Source Comments INFORMATION SOURCE (unrecogn ized section and content) DATE CREATED AUTHOR 10/24/2022 [facility] DATE CREATED AUTHOR AUTHOR'S ORGANIZ ATION 08/12/2023 [facility] FOR RECORDS PERTAINING TO PATIENTS WHO [...] BE BASED ON THE PRIMARY CLINICAL RECORDS. [facility] [employer] provides no warranty or guarantee of the accuracy or completeness of information in this document.
[2023-11-17 09:31] LABS: HCG Quantitative 454 mIU/mL
== END 2023-11-17 08:47 | disposition home or self-care (01) ==
LOC: LAB 08:46
PROVIDERS: PCP Family Medicine; Visit Provider Obstetrics & Gynecology
DX: N92.6 Irregular menstruation, unspecified (principal)
CPT/HCPCS: 36415; 84702

== ENCOUNTER 2024-03-04 08:58 | Outpatient (OUT) | payer BC, SELFPAY ==
--- NOTE | 2024-03-04 | XR_ITS ---
The [address] [address] Patient Name: MIGUEL ÁNGEL SPANN MRN: [id number] date: 1995 Sex: F Assigned Patient Location: Current Patient Location: Accession/Order Number: [id number] Exam Date: 03/04/2024 09:10 Report Date: 03/04/2024 11:38 At the request of: DEANNE HDEZ Procedure: XR cervical spine 2-3V EXAMINATION: XR cervical spine 2-3V HISTORY: CERVICAL SPINE PAIN COMPARISON: No relevant comparison available. FINDINGS: BONES: Normal. No significant spondylosis, scoliosis, fracture, or visible bony lesion. DISC SPACES: Normal. No significant disc height narrowing, subluxation, or endplate abnormality. PARASPINOUS: Negative. No paraspinous abnormality is seen. OTHER: Negative. XR/XR cervical spine 2-3V IMPRESSION: No acute radiographic abnormality Electronically authenticated by: MARBIN MCKEON Date: 03/04/2024 11:38
--- OUTSIDE RECORDS SUMMARY | 2024-03-04 09:22 | XMS_ITS ---
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 Name Role Phone TYALOR, DR PLATT Attending Unavailable TAYLOR, DR PLATT Admitting Unavailable TAYLOR, DR PLATT Consulting Unavailable REQUEST, NONE LISTED Primary Care Unavaila ble TAYLOR, DR PLATT Admitting Unavailable HOY, DR ALICEA Primary Care Unavailable WEST, DR MARBIN Meyer Consulting Unavailable TAYLOR, DR PLATT Attending Unavailable TAYLOR, DR PLATT Consulting Unavailable TAYLOR, DR PLATT Attending Unavailable TAYLOR, DR PLATT Admitting Unavailable REQUEST, DR NONE LISTED Primary Care Unavaila ble LINDA, DR MARBIN Meyer Consulting Unavailable TAYLOR, DR PLATT Consulting Unavailable TAYLOR, DR PLATT Attending Unavailable TAYLOR, DR PLATT Admitting Unavailable REQUEST, NONE LISTED Primary Care Unavaila ble TAYLOR, DR PLATT Admitting Unavailable TAYLOR, DR PLATT Consulting Unavailable HOY, DR ALICEA Primary Care Unavailable TAYLOR, DR PLATT Attending Unavailable HOY, DR ALICEA Consulting Unavailable ABNERY, DR ALICEA Attending Unavailable ABNERY, DR ALICEA Admitting Unavailable LEMUEL, DR ALICEA Primary Care Unavailable TAYLOR, DR PLATT Admitting Unavailable TAYLOR, DR PLATT Consulting Unavailable HOY, DR ALICEA Primary Care Unavailable TAYLOR, DR PLATT Attending Unavailable ZIEBER, DR JAYSHREE Antoine Consulting Unavailable TAYLOR, DR PLATT Attending Unavailable TAYLOR, DR PLATT Admitting Unavailable TAYLOR, DR PLATT Consulting Unavailable REQUEST, NONE LISTED Primary Care Unavaila ble TAYLOR, DR PLATT Attending Unavailable TAYLOR, DR PLATT Admitting Unavailable TAYLOR, DR PLATT Consulting Unavailable REQUEST, DR NONE LISTED Primary Care Unavaila ble ELIANE, DR JAYSHREE Antoine Consulting Unavailable TAYLOR, DR PLATT Consulting Unavailable LEMUEL, DR ALICEA Primary Care Unavailable TAYLOR, DR PLATT Attending Unavailable TAYLOR, DR PLATT Admitting Unavailable JAYSHREE WHIPPLE Consulting Unavailable DR GIULIA VAZQUEZ Procedure Practitioner Unavailab NICHOLAS Mendoza Consulting Unavailable NICHOLAS KEYS Attending Unavailable NICHOLAS KEYS Admitting Unavailable DR DEANNE HDEZ Primary Care Unavailable YAMILETH HORTON Attending Unavailable Encounters Encounter Date Encounter Type Care Provider [...] End: 11-20-[address] GIULIA VAZQUEZ Facility:[facility] Payers Date Payer Category Payer Unknown [id number] 2.16.84 [id number] 1995 Unknown [id number] 2.16.84 [id number] 1995 Unknown [id number] 2.16.84 [id number] 1994 Unknown [id number] 2.16.84 [id number] 1994 Unknown [id number] 2.16.84 [id number] 1994 Unknown [id number] 2.16.84 [id number] 1994 Unknown [id number] 2.16.84 [id number] 1994 Unknown [id number] 2.16.84 [id number] 1994 Unknown [id number] 2.16.84 [id number] 1994 Unknown [id number] 2.16.84 [id number] 1994 Unknown [id number] 2.16.84 [id number] 1960 Unknown [id number] 1960 Unknown [id number] 1960 Unknown [id number] Problems Active Problems Problem Classification Problem Date [...] WEEKS GESTATION OF ] Onset: 11-21-2021 Episodic Procedures Date Procedure Procedure Detail Performing Clinician [...] Skin , External Approach DR GIULIA VAZQUEZ Results Test Name Value Interpretation Reference Range Facil it CBC AUTO DIFFon 10-21-2022 BASO # 0.0 103/ul Normal 0.0-0.1 [facility] Comment on above: Performed By: #### C BC #### [facility] [address] [address] [address] Diann Dickerson Basophils/100 WBC (Bld) 0.4 % Normal 0.2-2.0 [facility] Comment on above: Performed By: #### C BC #### [facility] [address] [address] [address] Diann Dickerson EO # 0.0 103/ul Normal 0.0-0.7 [facility] Comment on above: Performed By: #### C BC #### [facility] [address] [address] [address] Diann Dickerson Eosinophils/100 WBC (Bld) 0.8 % Critically low 0.9-7.0 [facility] Comment on above: Performed By: #### C BC #### [facility] [address] [address] [address] Diann Dickerson Erythrocyte distribution width (RBC) [Ratio] 11.0 % Normal 11.0-15.0 [facility] Comment on above: Performed By: #### C BC #### [facility] [address] [address] [address] Diann Dickerson Hematocrit (Bld) [Volume fraction] 38.0 % Normal 36.0-48.0 [facility] Comment on above: Performed By: #### C BC #### [facility] [address] [address] [address] Diann Dickerson Hemoglobin (Bld) [Mass/Vol] 13.6 g/dL Normal 12.0-16.0 [facility] Comment on above: Performed By: #### C BC #### [facility] [address] [address] [address] Diann Dickerson IG # 0.02 10e3/ul Normal 0.00-0.03 [facility] Comment on above: Performed By: #### C BC #### [facility] [address] [place] [address] Dr. Diann Dickerson IG % 0.4 % Normal 0.0-0.5 [facility] Comment on above: Performed By: #### C BC #### [facility] [address] [place] [address] Dr. Diann Dickerson LYMPH # 2.0 103/ul Normal 1.2-3.8 [facility] Comment on above: Performed By: #### C BC #### [facility] [address] [place] [address] Dr. Diann Dickerson Lymphocytes/100 WBC (Bld) 38.2 % Normal 20.5-60.0 [facility] Comment on above: Performed By: #### C BC #### [facility] [address] [place] [address] Dr. Diann Dickerson MANUAL DIFF REQ NO Normal [facility] Comment on above: Performed By: #### C BC #### [facility] [address] [place] [address] Dr. Diann Dickerson MCH (RBC) [Entitic mass] 31.6 pg Normal 26.7-34.[address] [facility] Comment on above: Performed By: #### C BC #### [facility] [address] [place] [address] Dr. Diann Dickerson MCHC (RBC) [Mass/Vol] 35.8 g/dL Critically high 29.9-35.[address] [facility] Comment on above: Performed By: #### C BC #### [facility] [address] [address] [address] Diann Dickerson MCV (RBC) [Entitic vol] 88.2 fL Normal 81.0-99.0 [facility] Comment on above: Performed By: #### C BC #### [facility] [address] [place] [address] Dr. Diann Dickerson MONO # 0.4 103/ul Normal 0.3-0.8 [facility] Comment on above: Performed By: #### C BC #### [facility] [address] [place] [address] Dr. Diann Dickerson Monocytes/100 WBC (Bld) 7.7 % Normal 1.7-12.0 [facility] Comment on above: Performed By: #### C BC #### [facility] [address] [place] [address] Dr. Diann Dickerson NEUT # 2.7 103/ul Normal 1.4-6.5 [facility] Comment on above: Performed By: #### C BC #### [facility] [address] [place] [address] Dr. Diann Dickerson Neutrophils/100 WBC (Bld) 52.5 % Normal 43.0-75.0 [facility] Comment on above: Performed By: #### C BC #### [facility] [address] [place] [address] Dr. Diann Dickerson Platelet mean volume (Bld) [Entitic vol] 10.3 fL Normal 9.5-13.5 [facility] Comment on above: Performed By: #### C BC #### [facility] [address] [place] [address] Dr. Diann Dickerson PLT 251 103/ul Normal 150-[address] [facility] Comment on above: Performed By: #### C BC #### [facility] [address] [place] [address] Dr. Diann Dickerson RBC 4.31 106/ul Normal 4.20-5.[address] [facility] Comment on above: Performed By: #### C BC #### [facility] [address] [place] [address] Dr. Diann Dickerson WBC 5.2 103/ul Normal 4.0-11.0 [facility] Comment on above: Performed By: #### C BC #### [facility] [address] [place] [address] Dr. Diann Dickerson ER URINE PROFILEon 3 Bilirubin Ql (U) Negative Normal NEGATIVE [facility] Comment on above: Performed By: #### P REGU, ERUR #### [facility] [address] [place] [address] Dr. Diann Dickerson Clarity (U) CLEAR Normal CLEAR [facility] Comment on above: Performed By: #### P REGU, ERUR #### [facility] [address] [place] [address] Dr. Dinan Dickerson Color (U) YELLOW Normal YELLOW [facility] Comment on above: Performed By: #### P REGU, ERUR #### [facility] [address] [place] [address] Dr. Diann MAYAD A micrscopic examination will be performed if indicated. Normal [facility] Comment on above: Performed By: #### P REGU, ERUR #### [facility] [address] [place] [address] Dr. Diann Dickerson Glucose Ql (U) Negative Normal NEGATIVE [facility] Comment on above: Performed By: #### P REGU, ERUR #### [facility] [address] [place] [address] Dr. Diann Dickerson Hemoglobin Ql (U) Negative Normal NEGATIVE [facility] Comment on above: Performed By: #### P REGU, ERUR #### [facility] [address] [place] [address] Dr. Diann Dickerson Ketones Ql (U) Negative Normal NEGATIVE [facility] Comment on above: Performed By: #### P REGU, ERUR #### [facility] [address] [place] [address] Dr. Diann Dickerson LEUKOCYTES Negative Normal NEGATIVE [facility] Comment on above: Performed By: #### P REGU, ERUR #### [facility] [address] [address] [address] Diann Dickerson Nitrite Ql (U) Negative Normal NEGATIVE [facility] Comment on above: Performed By: #### P REGU, ERUR #### [facility] [address] [address] [address] Diann Dickerson pH (U) 6.0 [pH] Normal 5-[address] [facility] Comment on above: Performed By: #### P REGU, ERUR #### [facility] [address] [place] [address] Dr. Diann Dickerson SPEC GRAVITY 1.015 Normal 1.005-<=1.[address] [facility] Comment on above: Performed By: #### P REGU, ERUR #### [facility] [address] [place] [address] Dr. Diann Dickerson UA PROTEIN Negative Normal NEGATIVE/ TRACE [facility] Comment on above: Performed By: #### P REGU, ERUR #### [facility] [address] [place] [address] Dr. Diann Dickerson UR MICRO IND NOT INDICATED Normal [facility] Comment on above: Performed By: #### P REGU, ERUR #### [facility] [address] [place] [address] Dr. Diann Dickerson Urobilinogen Qn (U) 1.0 {Guy'U}/dL Normal 0.2 - 1. [address] [facility] Comment on above: Performed By: #### P REGU, ERUR #### [facility] [address] [place] [address] Dr. Diann Dickerson GROUP A STREP CULTUREon 09-24 S. pyogenes Ag Ql (Unsp spec) Culture Observations: NEGATIVE FOR GROUP A STREPTOCOCCUS. Normal [facility] Comment on above: Performed By: #### G RASTCX, SSCRN #### [facility] [address] [place] [address] Dr. Diann Dickerson URon 10-21-2022 , QUAL Negative Normal NEGATIVE [facility] Comment on above: Performed By: #### P REGU, ERUR #### [facility] [address] [address] [address] Diann Dickerson PROF CHEM 8 (BAS METB)on Anion gap [Moles/Vol] 12.1 mmol/L Normal [facility] Comment on above: Performed By: #### C BC #### [facility] [address] [address] [address] Diann Dickerson Calcium [Mass/Vol] 9.3 mg/dL Normal 8.5-10.1 [facility] Comment on above: Performed By: #### C BC #### [facility] [address] [place] [address] Dr. Diann Dickerson Chloride [Moles/Vol] 101 mmol/L Normal 98-107 [facility] Comment on above: Performed By: #### C BC #### [facility] [address] [place] [address] Dr. Diann Dickerson CO2 [Moles/Vol] 28.3 mmol/L Normal 21.0-32.0 [facility] Comment on above: Performed By: #### C BC #### [facility] [address] [place] [address] Dr. Diann Dickerson Creatinine [Mass/Vol] 0.61 mg/dL Normal 0.55-1.02 [facility] Comment on above: Performed By: #### C BC #### [facility] [address] [place] [address] Dr. Diann Dickerson EGFR-AF MARTINIQUAIS >60 Normal >=60 [facility] Comment on above: Performed By: #### C BC #### [facility] [address] [place] [address] Dr. Diann Dickerson EGFR-NON AF MARTINIQUAIS >60 Normal >=60 [facility] Comment on above: Performed By: #### C BC #### [facility] [address] [place] [address] Dr. Diann Dickerson Glucose [Mass/Vol] 122 mg/dL Critically high 74-106 [facility] Comment on above: Performed By: #### C BC #### [facility] [address] [address] [address] Diann Dickerson Potassium [Moles/Vol] 3.4 mmol/L Critically low 3.5-5.1 [facility] Comment on above: Performed By: #### C BC #### [facility] [address] [address] [address] Diann Dickerson Sodium [Moles/Vol] 138 mmol/L Normal 136-145 [facility] Comment on above: Performed By: #### C BC #### [facility] [address] [address] [address] Diann Dickerson Urea nitrogen [Mass/Vol] 5.0 mg/dL Critically low 7.0-18.0 [facility] Comment on above: Performed By: #### C BC #### [facility] [address] [address] [address] Diann Dickerson Urea nitrogen/Creatinine [Mass ratio] 8.2 mg/mg Normal [facility] Comment on above: Performed By: #### C BC #### [facility] [address] [address] [address] Diann Dickerson STREPT SCREENon 10-21-2022 STREP SCREEN A Negative Normal NEGATIVE [facility] Comment on above: Performed By: #### G RASTCX, SSCRN #### [facility] [address] [address] [address] Diann Dickerson Covid-19 PCR (CVDTBH)on 09-23 SARS-CoV-2 (COVID-19) RNA PREMA+probe Ql (Unsp spec) Not detected Normal NOT DETECTED [facility] Comment on above: Result Comment: This test is not yet approved or cleared by the [place] FDA. When there are no FDA-approved or cleared tests available, and other criteria are met, FDA can make tests available under an emergency access mechanism called an Emergency Use Authorization (EUA). The EUA for this test is supported by the Drug Clerk of Health and Human Service's (HHS's) declaration [...] SARS-CoV-2. Performed By: #### C VDTBH #### [facility] [address] [place] [address] Dr. Diann Dickerson INFLUENZA A AND B AGon 09-23 [facility] BEL[facility] Normal [facility] Comment on above: Result Comment: Nega tive for Flu A protein angiten. Infection due to Flu A cannot be ruled out. Flu A angiten in the sample may be below the detection limit of the test. Performed By: #### U ACSIND #### [facility] [address] [place] [address] Dr. Diann Dickerson INFLUBNEG SEE BELOW Normal [facility] Comment on above: Result Comment: Nega tive for Flu B protein antigen. Infection due to Flu B cannot be ruled out. Flu B antigen in the sample may be below the detection limit of the test. Performed By: #### U ACSIND #### [facility] [address] [place] [address] Dr. Diann Dickerson INFLUENZA A AG Negative Normal NEGATIVE SEE COMMENT [facility] Comment on above: Performed By: #### U ACSIND #### [facility] [address] [place] [address] Dr. Diann Dickerson INFLUENZA B AG Negative Normal NEGATIVE SEE COMMENT [facility] Comment on above: Performed By: #### U ACSIND #### [facility] [address] [place] [address] Dr. Diann Dickerson CBC AUTO DIFFon 04-02-2022 BASO # 0.0 103/ul Normal 0.0-0.1 [facility] Comment on above: Performed By: #### C VDTBH #### [facility] [address] [place] [address] Dr. Diann Dickerson Basophils/100 WBC (Bld) 0.4 % Normal 0.2-2.0 [facility] Comment on above: Performed By: #### C VDTBH #### [facility] [address] [place] [address] Dr. Diann Dickerson EO # 0.1 103/ul Normal 0.0-0.7 [facility] Comment on above: Performed By: #### C VDTBH #### [facility] [address] [place] [address] Dr. Diann Dickerson Eosinophils/100 WBC (Bld) 0.6 % Critically low 0.9-7.0 [facility] Comment on above: Performed By: #### C VDTBH #### [facility] [address] [place] [address] Dr. Diann Dickerson Erythrocyte distribution width (RBC) [Ratio] 12.3 % Normal 11.0-15.0 [facility] Comment on above: Performed By: #### C VDTBH #### [facility] [address] [place] [address] Dr. Diann Dickerson Hematocrit (Bld) [Volume fraction] 35.5 % Critically low 36.0-48.0 [facility] Comment on above: Performed By: #### C VDTBH #### [facility] [address] [place] [address] Dr. Diann Dickerson Hemoglobin (Bld) [Mass/Vol] 12.3 g/dL Normal 12.0-16.0 [facility] Comment on above: Performed By: #### C VDTBH #### [facility] [address] [place] [address] Dr. Diann Dickerson IG # 0.07 10e3/ul Critically high 0.00-0.03 [facility] Comment on above: Performed By: #### C VDTBH #### [facility] [address] [place] [address] Dr. Diann Dickerson IG % 0.7 % Critically high 0.0-0.[address] [facility] Comment on above: Performed By: #### C VDTBH #### [facility] [address] [address] [address] Diann Dickerson LYMPH # 1.3 103/ul Normal 1.2-3.[address] [facility] Comment on above: Performed By: #### C VDTBH #### [facility] [address] [place] [address] Dr. Diann Dickerson Lymphocytes/100 WBC (Bld) 13.9 % Critically low 20.5-60.[address] [facility] Comment on above: Performed By: #### C VDTBH #### [facility] [address] [place] [address] Dr. Diann Dickerson MANUAL DIFF REQ NO Normal [facility] Comment on above: Performed By: #### C VDTBH #### [facility] [address] [place] [address] Dr. Diann Dickerson MCH (RBC) [Entitic mass] 34.1 pg Critically high 26.7-34.[address] [facility] Comment on above: Performed By: #### C VDTBH #### [facility] [address] [place] [address] Dr. Diann Dickerson MCHC (RBC) [Mass/Vol] 34.6 g/dL Normal 29.9-35.[address] [facility] Comment on above: Performed By: #### C VDTBH #### [facility] [address] [place] [address] Dr. Diann Dickerson MCV (RBC) [Entitic vol] 98.3 fL Normal 81.0-99.[address] [facility] Comment on above: Performed By: #### C VDTBH #### [facility] [address] [place] [address] Dr. Diann Dickerson MONO # 1.0 103/ul Critically high 0.3-0.[address] [facility] Comment on above: Performed By: #### C VDTBH #### [facility] [address] [place] [address] Dr. Diann Dickerson Monocytes/100 WBC (Bld) 10.5 % Normal 1.7-12.[address] [facility] Comment on above: Performed By: #### C VDTBH #### [facility] [address] [place] [address] Dr. Diann Dickerson NEUT # 6.9 103/ul Critically high 1.4-6.[address] [facility] Comment on above: Performed By: #### C VDTBH #### [facility] [address] [place] [address] Dr. Diann Dickerson Neutrophils/100 WBC (Bld) 73.9 % Normal 43.0-75.0 [facility] Comment on above: Performed By: #### C VDTBH #### [facility] [address] [place] [address] Dr. Diann Dickerson Platelet mean volume (Bld) [Entitic vol] 10.8 fL Normal 9.5-13.5 [facility] Comment on above: Performed By: #### C VDTBH #### [facility] [address] [place] [address] Dr. Diann Dickerson PLT 177 103/ul Normal 150-[address] [facility] Comment on above: Performed By: #### C VDTBH #### [facility] [address] [place] [address] Dr. Diann Dickerson RBC 3.61 106/ul Critically low 4.20-5.[address] [facility] Comment on above: Performed By: #### C VDTBH #### [facility] [address] [place] [address] Dr. Diann Dickerson WBC 9.4 103/ul Normal 4.0-11.[address] [facility] Comment on above: Performed By: #### C VDTBH #### [facility] [address] [place] [address] Dr. Diann Dickerson CBC AUTO DIFFon 04-01-2022 BASO # 0.0 103/ul Normal 0.0-0.1 [facility] Comment on above: Performed By: #### C BC #### [facility] [address] [place] [address] Dr. Diann Dickerson Basophils/100 WBC (Bld) 0.3 % Normal 0.2-2.0 [facility] Comment on above: Performed By: #### C BC #### [facility] [address] [place] [address] Dr. Diann Dickerson EO # 0.1 103/ul Normal 0.0-0.7 [facility] Comment on above: Performed By: #### C BC #### [facility] [address] [place] [address] Dr. Diann Dickerson Eosinophils/100 WBC (Bld) 0.6 % Critically low 0.9-7.0 [facility] Comment on above: Performed By: #### C BC #### [facility] [address] [place] [address] Dr. Diann Dickerson Erythrocyte distribution width (RBC) [Ratio] 12.4 % Normal 11.0-15.0 [facility] Comment on above: Performed By: #### C BC #### [facility] [address] [place] [address] Dr. Diann Dickerson Hematocrit (Bld) [Volume fraction] 38.0 % Normal 36.0-48.0 [facility] Comment on above: Performed By: #### C BC #### [facility] [address] [place] [address] Dr. Diann Dickerson Hemoglobin (Bld) [Mass/Vol] 13.1 g/dL Normal 12.0-16.0 [facility] Comment on above: Performed By: #### C BC #### [facility] [address] [place] [address] Dr. Diann Dickerson IG # 0.07 10e3/ul Critically high 0.00-0.03 [facility] Comment on above: Performed By: #### C BC #### [facility] [address] [place] [address] Dr. Diann Dickerson IG % 0.7 % Critically high 0.0-0.[address] [facility] Comment on above: Performed By: #### C BC #### [facility] [address] [place] [address] Dr. Diann Dickerson LYMPH # 1.5 103/ul Normal 1.2-3.[address] [facility] Comment on above: Performed By: #### C BC #### [facility] [address] [address] [address] Diann Dickerson Lymphocytes/100 WBC (Bld) 15.6 % Critically low 20.5-60.0 [facility] Comment on above: Performed By: #### C BC #### [facility] [address] [address] [address] Diann Dickerson MANUAL DIFF REQ NO Normal [facility] Comment on above: Performed By: #### C BC #### [facility] [address] [place] [address] Dr. Diann Dickerson MCH (RBC) [Entitic mass] 33.8 pg Normal 26.7-34.[address] [facility] Comment on above: Performed By: #### C BC #### [facility] [address] [place] [address] Dr. Diann Dickerson MCHC (RBC) [Mass/Vol] 34.5 g/dL Normal 29.9-35.[address] [facility] Comment on above: Performed By: #### C BC #### [facility] [address] [place] [address] Dr. Diann Dickerson MCV (RBC) [Entitic vol] 97.9 fL Normal 81.0-99.[address] [facility] Comment on above: Performed By: #### C BC #### [facility] [address] [place] [address] Dr. Diann Dickerson MONO # 0.8 103/ul Normal 0.3-0.[address] [facility] Comment on above: Performed By: #### C BC #### [facility] [address] [place] [address] Dr. Diann Dickerson Monocytes/100 WBC (Bld) 8.2 % Normal 1.7-12.[address] [facility] Comment on above: Performed By: #### C BC #### [facility] [address] [place] [address] Dr. Diann Dickerson NEUT # 7.1 103/ul Critically high 1.4-6.[address] [facility] Comment on above: Performed By: #### C BC #### [facility] [address] [address] [address] Diann Dickerson Neutrophils/100 WBC (Bld) 74.6 % Normal 43.0-75.[address] [facility] Comment on above: Performed By: #### C BC #### [facility] [address] [address] [address] Diann Dickerson Platelet mean volume (Bld) [Entitic vol] 10.7 fL Normal 9.5-13.[address] [facility] Comment on above: Performed By: #### C BC #### [facility] [address] [address] [address] Diann Dickerson PLT 172 103/ul Normal 150-[address] [facility] Comment on above: Performed By: #### C BC #### [facility] [address] [place] [address] Dr. Diann Dickerson RBC 3.88 106/ul Critically low 4.20-5.[address] [facility] Comment on above: Performed By: #### C BC #### [facility] [address] [address] [address] Diann Dickerson WBC 9.5 103/ul Normal 4.0-11.[address] [facility] Comment on above: Performed By: #### C BC #### [facility] [address] [place] [address] Dr. Diann Dickerson [facility]22 SARS-CoV-2 (COVID-19) RNA PREMA+probe Ql (Unsp spec) Not detected Normal NOT DETECTED [facility] Comment on above: Result Comment: When [...] for this test is supported by the [place] of Health and Human Service's declaration that [...] used). Performed By: #### C VDTBH #### [facility] [address] [place] [address] Dr. Diann Dickerson DRUG SCREEN RAPID (URINE)on 04-01-2022 AMP Negative Normal NEGATIVE [facility] Comment on above: Performed By: #### C BC #### [facility] [address] [place] [address] Dr. Diann Dickerson BAR Negative Normal NEGATIVE [facility] Comment on above: Performed By: #### C BC #### [facility] [address] [place] [address] Dr. Diann Dickerson BUP Negative Normal NEGATIVE [facility] Comment on above: Performed By: #### C BC #### [facility] [address] [place] [address] Dr. Diann Dickerson BZO Negative Normal NEGATIVE [facility] Comment on above: Performed By: #### C BC #### [facility] [address] [place] [address] Dr. Diann Dickerson KRYS Negative Normal NEGATIVE [facility] Comment on above: Performed By: #### C BC #### [facility] [address] [place] [address] Dr. Diann Dickerson CUT-OFFS SEE BELOW Normal [facility] Comment on above: Result Comment: AMP [...] ng/mL Performed By: #### C BC #### [facility] [address] [place] [address] Dr. Diann Dickerson DRUG CUT HEADER DRUG CLASS TEST SYSTEM CUT-OFF CONCENTRATIONS ARE FOLLOWS: Normal [facility] Comment on above: Performed By: #### C BC #### [facility] [address] [place] [address] Dr. Diann Dickerson mAMP Negative Normal NEGATIVE [facility] Comment on above: Performed By: #### C BC #### [facility] [address] [place] [address] Dr. Diann Dickerson MTD Negative Normal NEGATIVE [facility] Comment on above: Performed By: #### C BC #### [facility] [address] [place] [address] Dr. Diann Dickerson OPI Negative Normal NEGATIVE [facility] Comment on above: Performed By: #### C BC #### [facility] [address] [place] [address] Dr. Diann Dickerson OXY Negative Normal NEGATIVE [facility] Comment on above: Performed By: #### C BC #### [facility] [address] [place] [address] Dr. Diann Dickerson PCP Negative Normal NEGATIVE [facility] Comment on above: Performed By: #### C BC #### [facility] [address] [place] [address] Dr. Diann Dickerson PPX Negative Normal NEGATIVE [facility] Comment on above: Performed By: #### C BC #### [facility] [address] [place] [address] Dr. Diann Dicekrson TCA Negative Normal NEGATIVE [facility] Comment on above: Performed By: #### C BC #### [facility] [address] [place] [address] Dr. Diann Dickerson THC Negative Normal NEGATIVE [facility] Comment on above: Performed By: #### C BC #### [facility] [address] [place] [address] Dr. Diann Dickerson GROUP B STREP CULTUREon [...] F Tetracycline >=16 R F Normal [facility] Comment on above: Performed By: #### C BC #### [facility] [address] [place] [address] Dr. Diann Dickerson PREG GROWTHon 03-04-2022 US PREG GROWTH EXAMINATION: [...] growth detailed above. Electronically authenticated by: JAYSHREE DLE RIO Date: 2022-03-04 17:33 Normal [facility] AMYLASEon 01-18-2022 Amylase [Catalytic activity/Vol] 30 U/L Normal 25-[address] [facility] Comment on above: Performed By: #### C VDTB #### [facility] [address] [place] [address] [address] [address] Diann Dickerson BUNon 01-18-2022 Urea nitrogen [Mass/Vol] 7.0 mg/dL Normal 7.0-18.0 [facility] Comment on above: Performed By: #### C VDTBH #### [facility] [address] [place] [address] Dr. Diann Dickerson CBC AUTO DIFFon 01-18-2022 BASO # 0.0 103/ul Normal 0.0-0.1 [facility] Comment on above: Performed By: #### C VDTBH #### [facility] [address] [place] [address] Dr. Diann Dickerson Basophils/100 WBC (Bld) 0.3 % Normal 0.2-2.0 [facility] Comment on above: Performed By: #### C VDTBH #### [facility] [address] [place] [address] Dr. Diann Dickerson EO # 0.1 103/ul Normal 0.0-0.7 [facility] Comment on above: Performed By: #### C VDTBH #### [facility] [address] [place] [address] Dr. Diann Dickerson Eosinophils/100 WBC (Bld) 0.6 % Critically low 0.9-7.0 [facility] Comment on above: Performed By: #### C VDTBH #### [facility] [address] [place] [address] Dr. Diann Dickerson Erythrocyte distribution width (RBC) [Ratio] 12.6 % Normal 11.0-15.[address] [facility] Comment on above: Performed By: #### C VDTBH #### [facility] [address] [place] [address] Dr. Diann Dickerson Hematocrit (Bld) [Volume fraction] 36.8 % Normal 36.0-48.[address] [facility] Comment on above: Performed By: #### C VDTBH #### [facility] [address] [place] [address] Dr. Diann Dickerson Hemoglobin (Bld) [Mass/Vol] 12.6 g/dL Normal 12.0-16.[address] [facility] Comment on above: Performed By: #### C VDTBH #### [facility] [address] [address] [address] Diann Dickerson IG # 0.06 10e3/ul Critically high 0.00-0.03 [facility] Comment on above: Performed By: #### C VDTBH #### [facility] [address] [address] [address] Diann Dickerson IG % 0.7 % Critically high 0.0-0.5 [facility] Comment on above: Performed By: #### C VDTBH #### [facility] [address] [address] [address] Diann Dickerson LYMPH # 0.7 103/ul Critically low 1.2-3.8 [facility] Comment on above: Performed By: #### C VDTBH #### [facility] [address] [place] [address] Dr. Diann Dickerson Lymphocytes/100 WBC (Bld) 7.6 % Critically low 20.5-60.0 [facility] Comment on above: Performed By: #### C VDTBH #### [facility] [address] [place] [address] Dr. Diann Dickerson MANUAL DIFF REQ NO Normal [facility] Comment on above: Performed By: #### C VDTBH #### [facility] [address] [place] [address] Dr. Diann Dickerson MCH (RBC) [Entitic mass] 33.3 pg Normal 26.7-34.0 [facility] Comment on above: Performed By: #### C VDTBH #### [facility] [address] [place] [address] Dr. Diann Dickerson MCHC (RBC) [Mass/Vol] 34.2 g/dL Normal 29.9-35.2 [facility] Comment on above: Performed By: #### C VDTBH #### [facility] [address] [place] [address] Dr. Diann Dickerson MCV (RBC) [Entitic vol] 97.4 fL Normal 81.0-99.0 [facility] Comment on above: Performed By: #### C VDTBH #### [facility] [address] [address] [address] Diann Dickerson MONO # 0.5 103/ul Normal 0.3-0.8 [facility] Comment on above: Performed By: #### C VDTBH #### [facility] [address] [place] [address] Dr. Diann Dickerson Monocytes/100 WBC (Bld) 5.3 % Normal 1.7-12.0 [facility] Comment on above: Performed By: #### C VDTBH #### [facility] [address] [place] [address] Dr. Diann Dickerson NEUT # 7.6 103/ul Critically high 1.4-6.5 [facility] Comment on above: Performed By: #### C VDTBH #### [facility] [address] [place] [address] Dr. Diann Dickerson Neutrophils/100 WBC (Bld) 85.5 % Critically high 43.0-75.0 [facility] Comment on above: Performed By: #### C VDTBH #### [facility] [address] [place] [address] Dr. Diann Dickerson Platelet mean volume (Bld) [Entitic vol] 10.2 fL Normal 9.5-13.5 [facility] Comment on above: Performed By: #### C VDTBH #### [facility] [address] [place] [address] Dr. Diann Dickerson PLT 198 103/ul Normal 150-[address] [facility] Comment on above: Performed By: #### C VDTBH #### [facility] [address] [place] [address] Dr. Diann Dickerson RBC 3.78 106/ul Critically low 4.20-5.[address] [facility] Comment on above: Performed By: #### C VDTBH #### [facility] [address] [place] [address] Dr. Diann Dickerson WBC 8.9 103/ul Normal 4.0-11.0 [facility] Comment on above: Performed By: #### C VDTBH #### [facility] [address] [address] [address] Diann Dickerson CREATININEon 01-18-2022 Creatinine [Mass/Vol] 0.53 mg/dL Critically low 0.55-1.02 [facility] Comment on above: Performed By: #### C VDTBH #### [facility] [address] [address] [address] Diann Dickerson EGFR-AF MARTINIQUAIS >60 Normal >=60 [facility] Comment on above: Performed By: #### C VDTBH #### [facility] [address] [address] [address] Diann Dickerson EGFR-NON AF MARTINIQUAIS >60 Normal >=60 [facility] Comment on above: Performed By: #### C VDTBH #### [facility] [address] [address] [address] Diann Dickerson ELECTROLYTESon 01-18-2022 Anion gap [Moles/Vol] 9.6 mmol/L Normal [facility] Comment on above: Performed By: #### C VDTBH #### [facility] [address] [address] [address] Diann Dickerson Chloride [Moles/Vol] 106 mmol/L Normal 98-107 [facility] Comment on above: Performed By: #### C VDTBH #### [facility] [address] [address] [address] Diann Dickerson CO2 [Moles/Vol] 23.5 mmol/L Normal 21.0-32.0 [facility] Comment on above: Performed By: #### C VDTBH #### [facility] [address] [address] [address] Diann Dickerson Potassium [Moles/Vol] 4.1 mmol/L Normal 3.5-5.1 [facility] Comment on above: Performed By: #### C VDTBH #### [facility] [address] [address] [address] Diann Dickerson Sodium [Moles/Vol] 135 mmol/L Critically low 136-145 [facility] Comment on above: Performed By: #### C VDTBH #### [facility] [address] [place] [address] Dr. Diann Dickerson SGOTon 01-18-2022 AST [Catalytic activity/Vol] 15 U/L Normal 15-37 [facility] Comment on above: Performed By: #### C VDTBH #### [facility] [address] [place] [address] Dr. Diann Dickerson SGPTon 01-18-2022 ALT [Catalytic activity/Vol] 19 U/L Normal 14-59 [facility] Comment on above: Performed By: #### C VDTBH #### [facility] [address] [place] [address] Dr. Diann Dickerson TSHon 01-18-2022 TSH 1.409 uIU/mL Normal 0.470-4.680 [facility] Comment on above: Performed By: #### C VDTBH #### [facility] [address] [place] [address] Dr. Diann Dickerson TSH RANGE SEE BELOW Normal [facility] Comment on above: Result Comment: <0.3 4 UIU/ml HYPERTHYROID 0.34-5.60 UIU/ml EUTHYROID >5.60 UIU/ml HYPOTHYROID Performed By: #### C VDTBH #### [facility] [address] [place] [address] Dr. Diann Dickerson UA (CLEAN/CATCH) [facility]/MICRO I F IND.on 01-18-2022 Bilirubin Ql (U) Negative Normal NEGATIVE [facility] Comment on above: Performed By: #### U ACSIND #### [facility] [address] [place] [address] Dr. Diann Dickerson Clarity (U) CLEAR Normal CLEAR [facility] Comment on above: Performed By: #### U ACSIND #### [facility] [address] [place] [address] Dr. Diann Dickerson Color (U) YELLOW Normal YELLOW [facility] Comment on above: Performed By: #### U ACSIND #### [facility] [address] [place], [place] [id number] Dr. Diann Dickerson Glucose Ql (U) Negative Normal NEGATIVE [facility] Comment on above: Performed By: #### U ACSIND #### [facility] [address] [address] [address] Diann Dickerson Hemoglobin Ql (U) Negative Normal NEGATIVE [facility] Comment on above: Performed By: #### U ACSIND #### [facility] [address] [address] [address] Diann Dickerson Ketones Ql (U) Negative Normal NEGATIVE [facility] Comment on above: Performed By: #### U ACSIND #### [facility] [address] [place] [address] Dr. Diann Dickerson LEUKOCYTES Negative Normal NEGATIVE [facility] Comment on above: Performed By: #### U ACSIND #### [facility] [address] [place] [address] Dr. Diann Dickerson Nitrite Ql (U) Negative Normal NEGATIVE [facility] Comment on above: Performed By: #### U ACSIND #### [facility] [address] [place] [address] Dr. Diann Dickerson pH (U) 8.5 [pH] Normal 5-[address] [facility] Comment on above: Performed By: #### U ACSIND #### [facility] [address] [place] [address] Dr. Diann Dickerson SPEC GRAVITY 1.015 Normal 1.005-<=1.[address] [facility] Comment on above: Performed By: #### U ACSIND #### [facility] [address] [place] [address] Dr. Diann Dickerson UA PROTEIN Negative Normal NEGATIVE/ TRACE [facility] Comment on above: Performed By: #### U ACSIND #### [facility] [address] [place] [address] Dr. Diann Dickerson UR MICRO IND NOT INDICATED Normal [facility] Comment on above: Performed By: #### U ACSIND #### [facility] [address] [place] [address] Dr. Diann Dickerson Urobilinogen Qn (U) 0.2 {Guy'U}/dL Normal 0.2 - 1. [address] [facility] Comment on above: Performed By: #### U ACSIND #### [facility] [address] [place] [address] Dr. Diann Dickerson US PREG BIOPHY W [...] MARBIN MCKEON Date: 2022-01-18 10:45 Normal [facility] US PREG CERVICAL LENGTHon US PREG CERVICAL LENGTH EXAMINATION: US PREG CERVICAL LENGTH HISTORY: Nausea and vomiting COMPARISON: 12/31/2021 FINDINGS: position: Cephalic Heart rate: 141 bpm Cervix: 4.7 cm, closed Clinical age: 20 weeks 5 days Clinical ANGELA: 04/07/2022 IMPRESSION: Closed cervix measuring 4.7 cm in length Electronically authenticated by: MARBIN MCKEON Date: 2022-01-18 10:46 Normal [facility] CULTURE URINEon 12-31-2021 CULTURE URINE Culture Observations : No growth Normal [facility] Comment on above: Performed By: #### C BC #### [facility] [address] [place] [address] Dr. Diann Dickerson US PREG AMNIOTIC FLUID VOLUM Elio 12-31-2021 US PREG AMNIOTIC FLUID VOLUME EXAMINATION: US PREG AMNIOTIC FLUID VOLUME HISTORY: Noninflammatory disorder of the vagina ; vaginal discharge COMPARISON: No relevant comparison available. TECHNIQUE: Limited sonographic examination for amniotic fluid volume FINDINGS: Presentation: Cephalic FILMOENA: 15.3 cm (between fifth and 95th percentile). Heart rate: 130 bpm Gestational age: 26 weeks, 1 day ANGELA: 04/07/2022 IMPRESSION: 1. Normal amniotic fluid index. Electronically authenticated by: JAYSHREE DEL RIO Date: 2021-12-31 12:41 Normal [facility] GLUCOSE - 1HRon 12-17-2021 Glucose [Mass/Vol] 134 mg/dL Critically high 74-106 [facility] Comment on above: Performed By: #### G LU1HR #### [facility] [address] [place] [address] Dr. Diann Dickerson HEMOGRAM AND PLATELon 2021 Hematocrit (Bld) [Volume fraction] 36.7 % Normal 36.0-48.0 [facility] Comment on above: Performed By: #### C BC #### [facility] [address] [place] [address] Dr. Diann Dickerson Hemoglobin (Bld) [Mass/Vol] 12.5 g/dL Normal 12.0-16.0 [facility] Comment on above: Performed By: #### C BC #### [facility] [address] [place] [address] Dr. Diann Dickerson MCH (RBC) [Entitic mass] 33.2 pg Normal 26.7-34.0 [facility] Comment on above: Performed By: #### C BC #### [facility] [address] [place] [address] Dr. Diann Dickerson MCHC (RBC) [Mass/Vol] 34.1 g/dL Normal 29.9-35.2 [facility] Comment on above: Performed By: #### C BC #### [facility] [address] [place] [address] Dr. Diann Dickerson MCV (RBC) [Entitic vol] 97.6 fL Normal 81.0-99.0 [facility] Comment on above: Performed By: #### C BC #### [facility] [address] [place] [address] Dr. Diann Dickerson PLT 207 103/ul Normal 150-[address] [facility] Comment on above: Performed By: #### C BC #### [facility] [address] [place] [address] Dr. Diann Dickerson RBC 3.76 106/ul Critically low 4.20-5.[address] [facility] Comment on above: Performed By: #### C BC #### [facility] [address] [place], [place] [address] Dr. Diann Dickerson WBC 6.3 103/ul Normal 4.0-11.0 [facility] Comment on above: Performed By: #### C BC #### [facility] [address] [place], [place] [address] Dr. Diann Dickerson US PREG ANATOMY SINGLEon [...] FL: 3.4 cm 20 weeks 5 days EFW:[id number]; FL/AC: [id number] FL/BPD: [id number] HC/AC: [id number] GESTATIONAL AGE: Age by EDC: 20 weeks 1 day ANGELA by EDC: 04/07/2022 Age by current US: 20 weeks 4 day ANGELA by current US: 04/04/2022 IMPRESSION: Normal anatomy scan *Reference: [employer] Practice Guideline for the performance of Obstetric Ultrasound Examinations, June 22, 2007. Electronically authenticated by: MARBIN MCKEON Date: 2021-11-20 07:34 Normal [facility] Clinical Note 11-19-2021 Note Date & Type Note Facility 11-19-2021 Note PROCEDURE: XR WRIST LT MIN 3 V COMPARISON: None. HISTORY: Pain of left wrist FINDINGS: BONES:No fracture, acute abnormality, or significant arthropathy. SOFT TISSUES:Negative. No visible soft tissue swelling. EFFUSION:None visible. OTHER: Negative. IMPRESSION: No acute abnormality Electronically authenticated by: MARBIN MCKEON Date: 2021-11-19 13:[address] [facility] Summary Purpose Family History No Family History Records FoundNo Family History Records Found Advance Directives No Advanced Directives Records FoundNo Advanced Directives Records Found Additional Source Comments INFORMATION SOURCE (unrecogn ized section and content) DATE CREATED AUTHOR 10/24/2022 [facility] DATE CREATED AUTHOR AUTHOR'S ORGANIZ ATION 08/12/2023 [facility] EPIC FOR RECORDS PERTAINING TO PATIENTS WHO ARE [...] BE BASED ON THE PRIMARY CLINICAL RECORDS. [facility] [employer] provides no warranty or guarantee of the accuracy or completeness of information in this document.
== END 2024-03-04 08:59 | disposition home or self-care (01) ==
LOC: EC 09:01
PROVIDERS: PCP Family Medicine; Visit Provider Family Medicine
DX: M54.2 Cervicalgia (principal)
CPT/HCPCS: 72040

== ENCOUNTER 2024-09-10 08:03 | Outpatient (OUT) | payer BC, OTHER, SELFPAY ==
--- NOTE | 2024-09-10 08:05 | US_ITS ---
[address] [address] Patient Name: MIGUEL ÁNGEL SPANN MRN: [id number] date: 1995 Sex: F Assigned Patient Location: [facility] Current Patient Location: [facility] Accession/Order Number: [id number] Exam Date: 09/10/2024 08:06 Report Date: 09/10/2024 09:47 At the request of: GIULIA VAZQUEZ Procedure: US OB transvaginal EXAMINATION: US OB transvaginal HISTORY: MISSED MENSES COMPARISON: No relevant comparison available. FINDINGS: Lim intrauterine gestation Gestational sac: 5.17 cm, 11 weeks 2 days CRL: 2.49 cm, 9 weeks 1 day Yolk sac: 4.8 mm Heart rate: 168 bpm Cervix: Closed, 4.6 cm Clinical age: 9 weeks 1 day Clinical ANGELA: 04/14/2025 Ultrasound age: 9 weeks 1 day Ultrasound ANGELA: 04/14/2025 US/US OB transvaginal IMPRESSION: Viable lim intrauterine gestation measuring 9 weeks 1 day Electronically authenticated by: MARBIN MCKEON Date: 09/10/2024 09:47
--- OUTSIDE RECORDS SUMMARY | 2024-09-10 08:07 | XMS_ITS | CCD ---
Author Organization [facility] Care Team Providers [facility] Consultant Name Role Phone TAYLOR, DR PLATT Attending Unavailable TAYLOR, DR PLATT Admitting Unavailable TAYLOR, DR PLATT Consulting Unavailable REQUEST, DR NONE LISTED Primary Care Unavaila ble TAYLOR, DR PLATT Admitting Unavailable HOY, DR ALICEA Primary Care Unavailable WEST, DR MARBIN Meyer Consulting Unavailable TAYLOR, DR PLATT Attending Unavailable TAYLOR, DR PLATT Consulting Unavailable TAYLOR, DR PLATT Attending Unavailable TAYLOR, DR PLATT Admitting Unavailable REQUEST, DR NONE LISTED Primary Care Unavaila ble WEST, DR MARBIN Meyer Consulting Unavailable TAYLOR, DR PLATT Consulting Unavailable TAYLOR, DR PLATT Attending Unavailable TAYLOR, DR PLATT Admitting Unavailable REQUEST, DR NONE LISTED Primary Care Unavaila ble TAYLOR, DR PLATT Admitting Unavailable TAYLOR, DR PLATT Consulting Unavailable HOY, DR ALICEA Primary Care Unavailable TAYLOR, DR PLATT Attending Unavailable HOY, DR ALICEA Consulting Unavailable ABNERY, DR ALICEA Attending Unavailable ABNERY, DR ALICEA Admitting Unavailable ABNERY, DR ALICEA Primary Care Unavailable TAYLOR, DR PLATT Admitting Unavailable TAYLOR, DR PLATT Consulting Unavailable HOY, DR ALICEA Primary Care Unavailable TAYLOR, DR PLATT Attending Unavailable ZIEBER, DR JAYSHREE Antoine Consulting Unavailable TAYLOR, DR PLATT Attending Unavailable TAYLOR, DR PLATT Admitting Unavailable TAYLOR, DR PLATT Consulting Unavailable REQUEST, DR NONE LISTED Primary Care Unavaila ble TAYLOR, DR PLATT Attending Unavailable TAYLOR, DR PLATT Admitting Unavailable TAYLOR, DR PLATT Consulting Unavailable REQUEST, DR NONE LISTED Primary Care Unavaila ble ELIANE, DR JAYSHREE Antoine Consulting Unavailable TAYLOR, DR PLATT Consulting Unavailable HOY, DR ALICEA Primary Care Unavailable TAYLOR, DR PLATT Attending Unavailable DR GIULIA VAZQUEZ Admitting Unavailable JAYSHREE WHIPPLE Consulting Unavailable DR GIULIA VAZQUEZ Procedure Practitioner Unavailab NICOHLAS Mendoza Consulting Unavailable NICHOLAS KEYS Attending Unavailable NICHOLAS KEYS Admitting Unavailable DR DEANNE PIERRE Primary Care Unavailable Deanne Pierre MD Primary Care Provider MARGRET HORTON Attending Unavailable Medications Current Medications Medication Drug Class(es) Dates Sig (Normalized) Sig (Original) Vit-Fe Fumarate-FA ( VITAMINS PO) (3 sources) Start: 06-22-2024 Vit-Fe Fumarate-FA ( VITAMINS PO) 06/22/2024 Active Completed/Discontinued Medications Medication Drug Class(es) Dates Sig (Normalized) Sig (Original) azithromycin 250 mg oral tablet (4 sources) Macrolide Antimicrobial Start: 4 End: 4 azithromycin (Zithromax Z-Jamarcus) 250 MG tablet Indications: Acute sinusitis, recurrence not specified, unspecified location As directed 6 tablet 03/05/2024 08/10/2024 Discontinued (Therapy completed) desogestrel 0.15 mg / ethinyl estradiol 0.03 mg oral tablet (2 sources) Progestin, Estrogen Start: 4 End: 4 desogestrel-ethinyl estradiol (Apri) 0.15-30 MG-MCG tablet Indications: Uses control Take 1 tablet by mouth Daily 28 tablet 12 04/21/2024 08/10/2024 Discontinued (Therapy completed) etodolac 200 mg oral capsule (2 sources) Nonsteroidal Anti-inflammatory Drug Start: 4 End: 4 take 1 capsule by mouth every six hours etodolac (Lodine) 200 MG capsule Indications: Inflammation around joint TAKE 1 CAPSULE BY MOUTH EVERY 6 HOURS IF NEEDED (INFLAMATION) 120 capsule 08/02/2024 08/10/2024 Discontinued (Therapy completed) fluconazole 150 mg oral tablet (2 sources) Azole Antifungal Start: 4 End: 4 fluconazole (Diflucan) 150 MG tablet Indications: Yeast infection 1 tablet PO day one; then 72 hours later take 2nd pill PO 2 tablet 1 10/22/2023 08/10/2024 Discontinued (Therapy completed) ibuprofen 800 mg oral tablet (2 sources) Nonsteroidal Anti-inflammatory Drug Start: 4 End: 4 take 1 tablet by mouth every eight hours as needed for pain and headache and headache ibuprofen 800 MG tablet Indications: Nonintractable episodic headache, unspecified headache type Take 1 tablet (800 mg) by mouth every 8 (eight) hours if needed for mild pain for up to 30 doses 30 tablet 02/13/2024 08/10/2024 Discontinued (Therapy completed) methylPREDNISolone (2 sources) Corticosteroid Start: 4 End: 4 methylPREDNISolone (Medrol Dospak) 4 MG tablets Indications: Acute sinusitis, recurrence not specified, unspecified location Day 1: 6 tablets Day 2: 5 tablets Day 3: 4 tablets Day 4: 3 tablets Day 5: 2 tablets Day 6: 1 tablet 21 tablet 12/17/2023 08/10/2024 Discontinued (Therapy completed) Problems Active Problems Problem Classification Problem Date [...] Results Test Name Value Interpretation Reference Range Facility Cytology Cervical or vaginal smear or scraping studyOrdered By: Jaimee Beckman on 08-11-2023 [facility] CBC AUTO DIFFon 10-21-2022 BASO # 0.0 103/ul Normal 0.0-0.1 [facility] Comment on above: Performed By: #### C BC #### [facility] [address] [address] [address] Diann Dickerson Basophils/100 WBC (Bld) 0.4 % Normal 0.2-2.0 [facility] Comment on above: Performed By: #### C BC #### [facility] [address] [address] [address] Diann Dickerson EO # 0.0 103/ul Normal 0.0-0.7 [facility] Comment on above: Performed By: #### C BC #### [facility] [address] [place] [address] Dr. Diann Dickerson Eosinophils/100 WBC (Bld) 0.8 % Critically low 0.9-7.0 [facility] Comment on above: Performed By: #### C BC #### [facility] [address] [address] [address] Diann Dickerson Erythrocyte distribution width (RBC) [Ratio] 11.0 % Normal 11.0-15.0 [facility] Comment on above: Performed By: #### C BC #### [facility] [address] [place] [address] Dr. Diann Dickerson Hematocrit (Bld) [Volume fraction] 38.0 % Normal 36.0-48.0 [facility] Comment on above: Performed By: #### C BC #### [facility] [address] [address] [address] Diann Dickerson Hemoglobin (Bld) [Mass/Vol] 13.6 g/dL Normal 12.0-16.0 [facility] Comment on above: Performed By: #### C BC #### [facility] [address] [place] [address] Dr. Diann Dickerson IG # 0.02 10e3/ul Normal 0.00-0.03 [facility] Comment on above: Performed By: #### C BC #### [facility] [address] [place] [address] Dr. Diann Dickerson IG % 0.4 % Normal 0.0-0.5 [facility] Comment on above: Performed By: #### C BC #### [facility] [address] [place] [address] Dr. Diann Dickerson LYMPH # 2.0 103/ul Normal 1.2-3.8 [facility] Comment on above: Performed By: #### C BC #### [facility] [address] [place] [address] Dr. Diann Dickerson Lymphocytes/100 WBC (Bld) 38.2 % Normal 20.5-60.0 [facility] Comment on above: Performed By: #### C BC #### [facility] [address] [place] [address] Dr. Diann Dickerson MANUAL DIFF REQ NO Normal [facility] Comment on above: Performed By: #### C BC #### [facility] [address] [place] [address] Dr. Diann Dickerson MCH (RBC) [Entitic mass] 31.6 pg Normal 26.7-34.0 [facility] Comment on above: Performed By: #### C BC #### [facility] [address] [place] [address] Dr. Diann Dickerson MCHC (RBC) [Mass/Vol] 35.8 g/dL Critically high 29.9-35.2 [facility] Comment on above: Performed By: #### C BC #### [facility] [address] [place] [address] Dr. Diann Dickerson MCV (RBC) [Entitic vol] 88.2 fL Normal 81.0-99.0 [facility] Comment on above: Performed By: #### C BC #### [facility] [address] [place] [address] Dr. Diann Dickerson MONO # 0.4 103/ul Normal 0.3-0.8 [facility] Comment on above: Performed By: #### C BC #### [facility] [address] [place] [address] Dr. Diann Dickerson Monocytes/100 WBC (Bld) 7.7 % Normal 1.7-12.0 [facility] Comment on above: Performed By: #### C BC #### [facility] [address] [place] [address] Dr. Diann Dickerson NEUT # 2.7 103/ul Normal 1.4-6.5 [facility] Comment on above: Performed By: #### C BC #### [facility] [address] [place] [address] Dr. Diann Dickerson Neutrophils/100 WBC (Bld) 52.5 % Normal 43.0-75.0 [facility] Comment on above: Performed By: #### C BC #### [facility] [address] [place] [address] Dr. Diann Dickerson Platelet mean volume (Bld) [Entitic vol] 10.3 fL Normal 9.5-13.5 [facility] Comment on above: Performed By: #### C BC #### [facility] [address] [place] [address] Dr. Diann Dickerson PLT 251 103/ul Normal 150-450 [facility] Comment on above: Performed By: #### C BC #### [facility] [address] [place] [address] Dr. Diann Dickerson RBC 4.31 106/ul Normal 4.20-5.40 [facility] Comment on above: Performed By: #### C BC #### [facility] [address] [place] [address] Dr. Diann Dickerson WBC 5.2 103/ul Normal 4.0-11.0 [facility] Comment on above: Performed By: #### C BC #### [facility] [address] [place] [address] Dr. Diann Dickerson ER URINE PROFILEon 3 Bilirubin Ql (U) Negative Normal NEGATIVE [facility] Comment on above: Performed By: #### P REGU, ERUR #### [facility] [address] [place] [address] Dr. Diann Dickerson Clarity (U) CLEAR Normal CLEAR [facility] Comment on above: Performed By: #### P REGU, ERUR #### [facility] [address] [address] [address] Diann Dickerson Color (U) YELLOW Normal YELLOW [facility] Comment on above: Performed By: #### P REGU, ERUR #### [facility] [address] [address] [address] Diann MCCALLUM A micrscopic examination will be performed if indicated. Normal [facility] Comment on above: Performed By: #### P REGU, ERUR #### [facility] [address] [address] [address] Diann Dickerson Glucose Ql (U) Negative Normal NEGATIVE [facility] Comment on above: Performed By: #### P REGU, ERUR #### [facility] [address] [place] [address] Dr. Diann Dickerson Hemoglobin Ql (U) Negative Normal NEGATIVE [facility] Comment on above: Performed By: #### P REGU, ERUR #### [facility] [address] [address] [address] Diann Dickerson Ketones Ql (U) Negative Normal NEGATIVE [facility] Comment on above: Performed By: #### P REGU, ERUR #### [facility] [address] [place] [address] Dr. Diann Dickerson LEUKOCYTES Negative Normal NEGATIVE [facility] Comment on above: Performed By: #### P REGU, ERUR #### [facility] [address] [address] [address] Diann Dickerson Nitrite Ql (U) Negative Normal NEGATIVE [facility] Comment on above: Performed By: #### P REGU, ERUR #### [facility] [address] [place] [address] Dr. Diann Dickerson pH (U) 6.0 [pH] Normal 5-9 [facility] Comment on above: Performed By: #### P REGU, ERUR #### [facility] [address] [place] [address] Dr. Diann Dickerson SPEC GRAVITY 1.015 Normal 1.005-<=1.025 [facility] Comment on above: Performed By: #### P REGU, ERUR #### [facility] [address] [place] [address] Dr. Diann Dickerson UA PROTEIN Negative Normal NEGATIVE/ TRACE [facility] Comment on above: Performed By: #### P REGU, ERUR #### [facility] [address] [place] [address] Dr. Diann Dickerson UR MICRO IND NOT INDICATED Normal [facility] Comment on above: Performed By: #### P REGU, ERUR #### [facility] [address] [place] [address] Dr. Diann Dickerson Urobilinogen Qn (U) 1.0 {Guy'U}/dL Normal 0.2 - 1. 0 [facility] Comment on above: Performed By: #### P REGU, ERUR #### [facility] [address] [place] [address] Dr. Diann Dickerson GROUP A STREP CULTUREon 09-24 S. pyogenes Ag Ql (Unsp spec) Culture Observations: NEGATIVE FOR GROUP A STREPTOCOCCUS. Normal [facility] Comment on above: Performed By: #### G RASTCX, SSCRN #### [facility] [address] [place] [address] Dr. Diann Dickerson URon 10-21-2022 , QUAL Negative Normal NEGATIVE [facility] Comment on above: Performed By: #### P REGU, ERUR #### [facility] [address] [place] [address] Dr. Diann Dickerson PROF CHEM 8 (BAS METB)on Anion gap [Moles/Vol] 12.1 mmol/L Normal [facility] Comment on above: Performed By: #### C BC #### [facility] [address] [place] [address] Dr. Diann Dickerson Calcium [Mass/Vol] 9.3 mg/dL Normal 8.5-10.1 [facility] Comment on above: Performed By: #### C BC #### [facility] [address] [address] [address] Diann Dickerson Chloride [Moles/Vol] 101 mmol/L Normal 98-107 [facility] Comment on above: Performed By: #### C BC #### [facility] [address] [address] [address] Diann Dickerson CO2 [Moles/Vol] 28.3 mmol/L Normal 21.0-32.[address] [facility] Comment on above: Performed By: #### C BC #### [facility] [address] [address] [address] Diann Dickerson Creatinine [Mass/Vol] 0.61 mg/dL Normal 0.55-1.02 [facility] Comment on above: Performed By: #### C BC #### [facility] [address] [place] [address] Dr. Diann Dickerson EGFR-AF POLISH >60 Normal >=[address] [facility] Comment on above: Performed By: #### C BC #### [facility] [address] [place] [address] Dr. Diann Dickerson EGFR-NON AF POLISH >60 Normal >=60 [facility] Comment on above: Performed By: #### C BC #### [facility] [address] [place] [address] Dr. Diann Dickerson Glucose [Mass/Vol] 122 mg/dL Critically high 74-106 [facility] Comment on above: Performed By: #### C BC #### [facility] [address] [address] [address] Diann Dickerson Potassium [Moles/Vol] 3.4 mmol/L Critically low 3.5-5.1 [facility] Comment on above: Performed By: #### C BC #### [facility] [address] [place] [address] Dr. Diann Dickerson Sodium [Moles/Vol] 138 mmol/L Normal 136-145 [facility] Comment on above: Performed By: #### C BC #### [facility] [address] [place] [address] Dr. Diann Dickerson Urea nitrogen [Mass/Vol] 5.0 mg/dL Critically low 7.0-18.0 [facility] Comment on above: Performed By: #### C BC #### [facility] [address] [address] [address] Diann Dickerson Urea nitrogen/Creatinine [Mass ratio] 8.2 mg/mg Normal [facility] Comment on above: Performed By: #### C BC #### [facility] [address] [id number] Diann Dickerson STREPT SCREENon 10-21-2022 STREP SCREEN A Negative Normal NEGATIVE [facility] Comment on above: Performed By: #### G RASTCX, SSCRN #### [facility] [address] [address] [address] Diann Dickerson Covid-19 PCR (CVDTBH)on 09-23 SARS-CoV-2 (COVID-19) RNA PREMA+probe Ql (Unsp spec) Not detected Normal NOT DETECTED [facility] Comment on above: Result Comment: This test is not yet approved or cleared by the [place] FDA. When there are no FDA-approved or cleared tests available, and other criteria are met, FDA can make tests available under an emergency access mechanism called an Emergency Use Authorization (EUA). The EUA for this test is supported by the [place] [employer] of Health and Human Service's (HHS's) declaration [...] SARS-CoV-2. Performed By: #### C VDTBH #### [facility] [address] [address] [address] Diann Dickerson INFLUENZA A AND B AGon 10-17 INFLUANEGH SEE BELOW Normal [facility] Comment on above: Result Comment: Nega tive for Flu A protein angiten. Infection due to Flu A cannot be ruled out. Flu A angiten in the sample may be below the detection limit of the test. Performed By: #### U ACSIND #### [facility] [address] [place] [address] Dr. Diann Dickerson [facility] SEE BELOW Normal [facility] Comment on above: Result Comment: Nega tive for Flu B protein antigen. Infection due to Flu B cannot be ruled out. Flu B antigen in the sample may be below the detection limit of the test. Performed By: #### U ACSIND #### [facility] [address] [place] [address] Dr. Diann Dickerson INFLUENZA A AG Negative Normal NEGATIVE SEE COMMENT [facility] Comment on above: Performed By: #### U ACSIND #### [facility] [address] [place] [address] Dr. Diann Dickerson INFLUENZA B AG Negative Normal NEGATIVE SEE COMMENT [facility] Comment on above: Performed By: #### U ACSIND #### [facility] [address] [place] [address] Dr. Diann Dickerson CBC AUTO DIFFon 04-02-2022 BASO # 0.0 103/ul Normal 0.0-0.1 [facility] Comment on above: Performed By: #### C VDTBH #### [facility] [address] [place] [address] Dr. Diann Dickerson Basophils/100 WBC (Bld) 0.4 % Normal 0.2-2.0 [facility] Comment on above: Performed By: #### C VDTBH #### [facility] [address] [place] [address] Dr. Diann Dickerson EO # 0.1 103/ul Normal 0.0-0.7 [facility] Comment on above: Performed By: #### C VDTBH #### [facility] [address] [place] [address] Dr. Diann Dickerson Eosinophils/100 WBC (Bld) 0.6 % Critically low 0.9-7.0 [facility] Comment on above: Performed By: #### C VDTBH #### [facility] [address] [address] [address] Diann Dickerson Erythrocyte distribution width (RBC) [Ratio] 12.3 % Normal 11.0-15.0 [facility] Comment on above: Performed By: #### C VDTBH #### [facility] [address] [place] [address] Dr. Diann Dickerson Hematocrit (Bld) [Volume fraction] 35.5 % Critically low 36.0-48.0 [facility] Comment on above: Performed By: #### C VDTBH #### [facility] [address] [place] [address] Dr. Diann Dickerson Hemoglobin (Bld) [Mass/Vol] 12.3 g/dL Normal 12.0-16.0 [facility] Comment on above: Performed By: #### C VDTBH #### [facility] [address] [place] [address] Dr. Diann Dickerson IG # 0.07 10e3/ul Critically high 0.00-0.03 [facility] Comment on above: Performed By: #### C VDTBH #### [facility] [address] [place] [address] Dr. Diann Dickerson IG % 0.7 % Critically high 0.0-0.5 [facility] Comment on above: Performed By: #### C VDTBH #### [facility] [address] [place] [address] Dr. Diann Dickerson LYMPH # 1.3 103/ul Normal 1.2-3.8 [facility] Comment on above: Performed By: #### C VDTBH #### [facility] [address] [place] [address] Dr. Diann Dickerson Lymphocytes/100 WBC (Bld) 13.9 % Critically low 20.5-60.0 [facility] Comment on above: Performed By: #### C VDTBH #### [facility] [address] [place] [address] Dr. Diann Dickerson MANUAL DIFF REQ NO Normal [facility] Comment on above: Performed By: #### C VDTBH #### [facility] [address] [place] [address] Dr. Diann Dickerson MCH (RBC) [Entitic mass] 34.1 pg Critically high 26.7-34.0 [facility] Comment on above: Performed By: #### C VDTBH #### [facility] [address] [place] [address] Dr. Diann Dickerson MCHC (RBC) [Mass/Vol] 34.6 g/dL Normal 29.9-35.2 [facility] Comment on above: Performed By: #### C VDTBH #### [facility] [address] [place] [address] Dr. Diann Dickerson MCV (RBC) [Entitic vol] 98.3 fL Normal 81.0-99.0 [facility] Comment on above: Performed By: #### C VDTBH #### [facility] [address] [place] [address] Dr. Diann Dickerson MONO # 1.0 103/ul Critically high 0.3-0.8 [facility] Comment on above: Performed By: #### C VDTBH #### [facility] [address] [place] [address] Dr. Diann Dickerson Monocytes/100 WBC (Bld) 10.5 % Normal 1.7-12.0 [facility] Comment on above: Performed By: #### C VDTBH #### [facility] [address] [place] [address] Dr. Diann Dickerson NEUT # 6.9 103/ul Critically high 1.4-6.5 [facility] Comment on above: Performed By: #### C VDTBH #### [facility] [address] [place] [address] Dr. Diann Dickerson Neutrophils/100 WBC (Bld) 73.9 % Normal 43.0-75.0 [facility] Comment on above: Performed By: #### C VDTBH #### [facility] [address] [place] [address] Dr. Diann Dickerson Platelet mean volume (Bld) [Entitic vol] 10.8 fL Normal 9.5-13.5 [facility] Comment on above: Performed By: #### C VDTBH #### [facility] [address] [place] [address] Dr. Diann Dickerson PLT 177 103/ul Normal 150-450 [facility] Comment on above: Performed By: #### C VDTBH #### [facility] [address] [place] [address] Dr. Diann Dickerson RBC 3.61 106/ul Critically low 4.20-5.40 [facility] Comment on above: Performed By: #### C VDTBH #### [facility] [address] [place] [address] Dr. Diann Dickerson WBC 9.4 103/ul Normal 4.0-11.0 [facility] Comment on above: Performed By: #### C VDTBH #### [facility] [address] [place] [address] Dr. Diann Dickerson CBC AUTO DIFFon 04-01-2022 BASO # 0.0 103/ul Normal 0.0-0.1 [facility] Comment on above: Performed By: #### C BC #### [facility] [address] [place] [address] Dr. Diann Dickerson Basophils/100 WBC (Bld) 0.3 % Normal 0.2-2.0 [facility] Comment on above: Performed By: #### C BC #### [facility] [address] [place] [address] Dr. Diann Dickerson EO # 0.1 103/ul Normal 0.0-0.7 [facility] Comment on above: Performed By: #### C BC #### [facility] [address] [place] [address] Dr. Diann Dickerson Eosinophils/100 WBC (Bld) 0.6 % Critically low 0.9-7.0 [facility] Comment on above: Performed By: #### C BC #### [facility] [address] [place] [address] Dr. Diann Dickerson Erythrocyte distribution width (RBC) [Ratio] 12.4 % Normal 11.0-15.0 [facility] Comment on above: Performed By: #### C BC #### [facility] [address] [place] [address] Dr. Diann Dickerson Hematocrit (Bld) [Volume fraction] 38.0 % Normal 36.0-48.0 [facility] Comment on above: Performed By: #### C BC #### [facility] [address] [place] [address] Dr. Diann Dickerson Hemoglobin (Bld) [Mass/Vol] 13.1 g/dL Normal 12.0-16.0 [facility] Comment on above: Performed By: #### C BC #### [facility] [address] [place] [address] Dr. Diann Dickerson IG # 0.07 10e3/ul Critically high 0.00-0.03 [facility] Comment on above: Performed By: #### C BC #### [facility] [address] [place] [address] Dr. Diann Dickerson IG % 0.7 % Critically high 0.0-0.5 [facility] Comment on above: Performed By: #### C BC #### [facility] [address] [place] [address] Dr. Diann Dickerson LYMPH # 1.5 103/ul Normal 1.2-3.8 [facility] Comment on above: Performed By: #### C BC #### [facility] [address] [place] [address] Dr. Diann Dickerson Lymphocytes/100 WBC (Bld) 15.6 % Critically low 20.5-60.0 [facility] Comment on above: Performed By: #### C BC #### [facility] [address] [place] [address] Dr. Diann Dickerson MANUAL DIFF REQ NO Normal [facility] Comment on above: Performed By: #### C BC #### [facility] [address] [place] [address] Dr. Diann Dickerson MCH (RBC) [Entitic mass] 33.8 pg Normal 26.7-34.0 [facility] Comment on above: Performed By: #### C BC #### [facility] [address] [place] [address] Dr. Diann Dickerson MCHC (RBC) [Mass/Vol] 34.5 g/dL Normal 29.9-35.2 [facility] Comment on above: Performed By: #### C BC #### [facility] [address] [place] [address] Dr. Dainn Dickerson MCV (RBC) [Entitic vol] 97.9 fL Normal 81.0-99.0 [facility] Comment on above: Performed By: #### C BC #### [facility] [address] [place] [address] Dr. Diann Dickerson MONO # 0.8 103/ul Normal 0.3-0.8 [facility] Comment on above: Performed By: #### C BC #### [facility] [address] [place] [address] Dr. Diann Dickerson Monocytes/100 WBC (Bld) 8.2 % Normal 1.7-12.0 [facility] Comment on above: Performed By: #### C BC #### [facility] [address] [place] [address] Dr. Diann Dickerson NEUT # 7.1 103/ul Critically high 1.4-6.5 [facility] Comment on above: Performed By: #### C BC #### [facility] [address] [place] [address] Dr. Diann Dickerson Neutrophils/100 WBC (Bld) 74.6 % Normal 43.0-75.0 [facility] Comment on above: Performed By: #### C BC #### [facility] [address] [place] [address] Dr. Diann Dickerson Platelet mean volume (Bld) [Entitic vol] 10.7 fL Normal 9.5-13.5 [facility] Comment on above: Performed By: #### C BC #### [facility] [address] [place] [address] Dr. Diann Dickerson PLT 172 103/ul Normal 150-450 [facility] Comment on above: Performed By: #### C BC #### [facility] [address] [address] [address] Diann Dickerson RBC 3.88 106/ul Critically low 4.20-5.40 [facility] Comment on above: Performed By: #### C BC #### [facility] [address] [id number] [address] Diann Dickerson WBC 9.5 103/ul Normal 4.0-11.0 [facility] Comment on above: Performed By: #### C BC #### [facility] [address] [address] [address] Diann Dickerson Covid-19 PCR ([facility])on 03-22 SARS-CoV-2 (COVID-19) RNA PREMA+probe Ql (Unsp spec) Not detected Normal NOT DETECTED [facility] Comment on above: Result Comment: When diagnostic [...] for this test is supported by the [employer] and Human Service's declaration [...] used). Performed By: #### C VDTBH #### [facility] [address] [place] [address] Dr. Diann Dickerson DRUG SCREEN RAPID (URINE)on 04-01-2022 AMP Negative Normal NEGATIVE [facility] Comment on above: Performed By: #### C BC #### [facility] [address] [place] [address] Dr. Diann Dickerson BAR Negative Normal NEGATIVE [facility] Comment on above: Performed By: #### C BC #### [facility] [address] [place] [address] Dr. Diann Dickerson BUP Negative Normal NEGATIVE [facility] Comment on above: Performed By: #### C BC #### [facility] [address] [place] [address] Dr. Diann Dickerson BZO Negative Normal NEGATIVE [facility] Comment on above: Performed By: #### C BC #### [facility] [address] [place] [address] Dr. Diann Dickerson KRYS Negative Normal NEGATIVE [facility] Comment on above: Performed By: #### C BC #### [facility] [address] [place] [address] Dr. Diann Dickerson CUT-OFFS SEE BELOW Normal [facility] Comment on above: Result Comment: AMP [...] ng/mL Performed By: #### C BC #### [facility] [address] [place] [address] Dr. Diann Dickerson DRUG CUT HEADER DRUG CLASS TEST SYSTEM CUT-OFF CONCENTRATIONS ARE FOLLOWS: Normal [facility] Comment on above: Performed By: #### C BC #### [facility] [address] [place] [address] Dr. Diann Dickerson mAMP Negative Normal NEGATIVE [facility] Comment on above: Performed By: #### C BC #### [facility] [address] [place] [address] Dr. Diann Dickerson MTD Negative Normal NEGATIVE [facility] Comment on above: Performed By: #### C BC #### [facility] [address] [address] [address] Diann Dickerson OPI Negative Normal NEGATIVE [facility] Comment on above: Performed By: #### C BC #### [facility] [address] [address] [address] Diann Dickerson OXY Negative Normal NEGATIVE [facility] Comment on above: Performed By: #### C BC #### [facility] [address] [address] [address] Diann Dickerson PCP Negative Normal NEGATIVE [facility] Comment on above: Performed By: #### C BC #### [facility] [address] [place] [address] Dr. Diann Dickerson PPX Negative Normal NEGATIVE [facility] Comment on above: Performed By: #### C BC #### [facility] [address] [address] [address] Diann Dickerson TCA Negative Normal NEGATIVE [facility] Comment on above: Performed By: #### C BC #### [facility] [address] [address] [address] Diann Dickerson THC Negative Normal NEGATIVE [facility] Comment on above: Performed By: #### C BC #### [facility] [address] [address] [address] Diann Dickerson GROUP B STREP CULTUREon [...] F Tetracycline >=16 R F Normal [facility] Comment on above: Performed By: #### C BC #### [facility] [address] [address] [address] Diann Dickerson PREG GROWTHon 03-04-2022 US [...] DEL RIO Date: 2022-03-04 17:33 Normal [facility] AMYLASEon 01-18-2022 Amylase [Catalytic activity/Vol] 30 U/L Normal 25-115 [facility] Comment on above: Performed By: #### C VDTBH #### [facility] [id number] [address] Diann Dickerson BUNon 01-18-2022 Urea nitrogen [Mass/Vol] 7.0 mg/dL Normal 7.0-18.0 [facility] Comment on above: Performed By: #### C VDTBH #### [facility] [id number] [address] Diann Dickerson CBC AUTO DIFFon 01-18-2022 BASO # 0.0 103/ul Normal 0.0-0.1 [facility] Comment on above: Performed By: #### C VDTBH #### [facility] [address] [address] [address] Diann Dickerson Basophils/100 WBC (Bld) 0.3 % Normal 0.2-2.0 [facility] Comment on above: Performed By: #### C VDTBH #### [facility] [address] [place] [address] Dr. Diann Dickerson EO # 0.1 103/ul Normal 0.0-0.7 [facility] Comment on above: Performed By: #### C VDTBH #### [facility] [address] [place] [address] Dr. Diann Dickerson Eosinophils/100 WBC (Bld) 0.6 % Critically low 0.9-7.0 [facility] Comment on above: Performed By: #### C VDTBH #### [facility] [address] [place] [address] Dr. Diann Dickerson Erythrocyte distribution width (RBC) [Ratio] 12.6 % Normal 11.0-15.0 [facility] Comment on above: Performed By: #### C VDTBH #### [facility] [address] [place] [address] Dr. Diann Dickerson Hematocrit (Bld) [Volume fraction] 36.8 % Normal 36.0-48.0 [facility] Comment on above: Performed By: #### C VDTBH #### [facility] [address] [place] [address] Dr. Diann Dickerson Hemoglobin (Bld) [Mass/Vol] 12.6 g/dL Normal 12.0-16.0 [facility] Comment on above: Performed By: #### C VDTBH #### [facility] [address] [place] [address] Dr. Diann Dickerson IG # 0.06 10e3/ul Critically high 0.00-0.03 [facility] Comment on above: Performed By: #### C VDTBH #### [facility] [address] [place] [address] Dr. Diann Dickerson IG % 0.7 % Critically high 0.0-0.5 [facility] Comment on above: Performed By: #### C VDTBH #### [facility] [address] [place] [address] Dr. Diann Dickerson LYMPH # 0.7 103/ul Critically low 1.2-3.8 [facility] Comment on above: Performed By: #### C VDTBH #### [facility] [address] [place] [address] Dr. Diann Dickerson Lymphocytes/100 WBC (Bld) 7.6 % Critically low 20.5-60.0 [facility] Comment on above: Performed By: #### C VDTBH #### [facility] [address] [place] [address] Dr. Diann Dickerson MANUAL DIFF REQ NO Normal [facility] Comment on above: Performed By: #### C VDTBH #### [facility] [address] [place] [address] Dr. Diann Dickerson MCH (RBC) [Entitic mass] 33.3 pg Normal 26.7-34.0 [facility] Comment on above: Performed By: #### C VDTBH #### [facility] [address] [place] [address] Dr. Diann Dickerson MCHC (RBC) [Mass/Vol] 34.2 g/dL Normal 29.9-35.2 [facility] Comment on above: Performed By: #### C VDTBH #### [facility] [address] [place] [address] Dr. Diann Dickerson MCV (RBC) [Entitic vol] 97.4 fL Normal 81.0-99.0 [facility] Comment on above: Performed By: #### C VDTBH #### [facility] [address] [place] [address] Dr. Diann Dickerson MONO # 0.5 103/ul Normal 0.3-0.8 [facility] Comment on above: Performed By: #### C VDTBH #### [facility] [address] [place] [address] Dr. Diann Dickerson Monocytes/100 WBC (Bld) 5.3 % Normal 1.7-12.0 [facility] Comment on above: Performed By: #### C VDTBH #### [facility] [address] [address] [address] Diann Dickerson NEUT # 7.6 103/ul Critically high 1.4-6.5 [facility] Comment on above: Performed By: #### C VDTBH #### [facility] [address] [place] [address] Dr. Diann Dickerson Neutrophils/100 WBC (Bld) 85.5 % Critically high 43.0-75.0 [facility] Comment on above: Performed By: #### C VDTBH #### [facility] [address] [place] [address] Dr. Diann Dickerson Platelet mean volume (Bld) [Entitic vol] 10.2 fL Normal 9.5-13.5 [facility] Comment on above: Performed By: #### C VDTBH #### [facility] [address] [place] [address] Dr. Diann Dickerson PLT 198 103/ul Normal 150-450 [facility] Comment on above: Performed By: #### C VDTBH #### [facility] [address] [place] [address] Dr. Diann Dickerson RBC 3.78 106/ul Critically low 4.20-5.40 [facility] Comment on above: Performed By: #### C VDTBH #### [facility] [address] [place] [address] Dr. Diann Dickerson WBC 8.9 103/ul Normal 4.0-11.0 [facility] Comment on above: Performed By: #### C VDTBH #### [facility] [address] [place] [address] Dr. Diann Dickerson CREATININEon 01-18-2022 Creatinine [Mass/Vol] 0.53 mg/dL Critically low 0.55-1.02 [facility] Comment on above: Performed By: #### C VDTBH #### [facility] [address] [place] [address] Dr. Diann Dickerson EGFR-AF POLISH >60 Normal >=60 [facility] Comment on above: Performed By: #### C VDTBH #### [facility] [address] [address] [address] Diann Dickerson EGFR-NON AF POLISH >60 Normal >=60 [facility] Comment on above: Performed By: #### C VDTBH #### [facility] [address] [place] [address] Dr. Diann Dickerson ELECTROLYTESon 01-18-2022 Anion gap [Moles/Vol] 9.6 mmol/L Normal [facility] Comment on above: Performed By: #### C VDTBH #### [facility] [address] [place] [address] Dr. Diann Dickerson Chloride [Moles/Vol] 106 mmol/L Normal 98-107 [facility] Comment on above: Performed By: #### C VDTBH #### [facility] [address] [place] [address] Dr. Diann Dickerson CO2 [Moles/Vol] 23.5 mmol/L Normal 21.0-32.[address] [facility] Comment on above: Performed By: #### C VDTBH #### [facility] [address] [place] [address] Dr. Diann Dickerson Potassium [Moles/Vol] 4.1 mmol/L Normal 3.5-5.1 [facility] Comment on above: Performed By: #### C VDTBH #### [facility] [address] [place] [address] Dr. Diann Dickerson Sodium [Moles/Vol] 135 mmol/L Critically low 136-145 [facility] Comment on above: Performed By: #### C VDTBH #### [facility] [address] [place] [address] Dr. Diann Dickerson SGOTon 01-18-2022 AST [Catalytic activity/Vol] 15 U/L Normal 15-37 [facility] Comment on above: Performed By: #### C VDTBH #### [facility] [address] [place] [address] Dr. Diann Dickerson SGPTon 01-18-2022 ALT [Catalytic activity/Vol] 19 U/L Normal 14-59 [facility] Comment on above: Performed By: #### C VDTBH #### [facility] [address] [place] [address] Dr. Diann Dickerson TSHon 01-18-2022 TSH 1.409 uIU/mL Normal 0.470-4.680 [facility] Comment on above: Performed By: #### C VDTBH #### [facility] [address] [place] [address] Dr. Diann Dickerson TSH RANGE SEE BELOW Normal [facility] Comment on above: Result Comment: <0.3 4 UIU/ml HYPERTHYROID 0.34-5.60 UIU/ml EUTHYROID >5.60 UIU/ml HYPOTHYROID Performed By: #### C VDTBH #### [facility] [address] [place] [address] Dr. Diann Dickerson UA (CLEAN/CATCH) REHABILITATION DIRECTOR/MICRO I F IND.on 01-18-2022 Bilirubin Ql (U) Negative Normal NEGATIVE [facility] Comment on above: Performed By: #### U ACSIND #### [facility] [address] [place] [address] Dr. Diann Dickerson Clarity (U) CLEAR Normal CLEAR [facility] Comment on above: Performed By: #### U ACSIND #### [facility] [address] [place] [address] Dr. Diann Dickerson Color (U) YELLOW Normal YELLOW [facility] Comment on above: Performed By: #### U ACSIND #### [facility] [address] [place] [address] Dr. Diann Dickerson Glucose Ql (U) Negative Normal NEGATIVE [facility] Comment on above: Performed By: #### U ACSIND #### [facility] [address] [place] [address] Dr. Diann Dickerson Hemoglobin Ql (U) Negative Normal NEGATIVE [facility] Comment on above: Performed By: #### U ACSIND #### [facility] [address] [place] [address] Dr. Diann Dickerson Ketones Ql (U) Negative Normal NEGATIVE [facility] Comment on above: Performed By: #### U ACSIND #### [facility] [address] [address] [address] Diann Dickerson LEUKOCYTES Negative Normal NEGATIVE [facility] Comment on above: Performed By: #### U ACSIND #### [facility] [address] [address] [address] Diann Dickerson Nitrite Ql (U) Negative Normal NEGATIVE [facility] Comment on above: Performed By: #### U ACSIND #### [facility] [address] [address] [address] Diann Dickerson pH (U) 8.5 [pH] Normal 5-9 [facility] Comment on above: Performed By: #### U ACSIND #### [facility] [address] [place] [address] Dr. Diann Dickerson SPEC GRAVITY 1.015 Normal 1.005-<=1.025 [facility] Comment on above: Performed By: #### U ACSIND #### [facility] [address] [place] [address] Dr. Diann Dickerson UA PROTEIN Negative Normal NEGATIVE/ TRACE [facility] Comment on above: Performed By: #### U ACSIND #### [facility] [address] [address] [address] Diann Dickerson UR MICRO IND NOT INDICATED Normal [facility] Comment on above: Performed By: #### U ACSIND #### [facility] [address] [place] [address] Dr. Diann Dickerson Urobilinogen Qn (U) 0.2 {Guy'U}/dL Normal 0.2 - 1. 0 [facility] Comment on above: Performed By: #### U ACSIND #### [facility] [address] [place] [address] Dr. Diann Dickerson US PREG BIOPHY W [...] MARBIN MCKEON Date: 2022-01-18 10:45 Normal [facility] US PREG CERVICAL LENGTHon US PREG CERVICAL LENGTH EXAMINATION: US PREG CERVICAL LENGTH HISTORY: Nausea and vomiting COMPARISON: 12/31/2021 FINDINGS: position: Cephalic Heart rate: 141 bpm Cervix: 4.7 cm, closed Clinical age: 20 weeks 5 days Clinical ANGELA: 04/07/2022 IMPRESSION: Closed cervix measuring 4.7 cm in length Electronically authenticated by: MARBIN MCKEON Date: 2022-01-18 10:46 Normal [facility] CULTURE URINEon 12-31-2021 CULTURE URINE Culture Observations: No growth Normal [facility] Comment on above: Performed By: #### C BC #### [facility] [address] [place] [address] Dr. Diann Dickerson US PREG AMNIOTIC FLUID [...] JAYSHREE DEL RIO Date: 2021-12-31 12:41 Normal [facility] GLUCOSE - 1HRon 12-17-2021 Glucose [Mass/Vol] 134 mg/dL Critically high 74-106 [facility] Comment on above: Performed By: #### G LU1HR #### [facility] [address] [place] [address] Dr. Diann Dickerson HEMOGRAM AND PLATELon 2021 Hematocrit (Bld) [Volume fraction] 36.7 % Normal 36.0-48.0 [facility] Comment on above: Performed By: #### C BC #### [facility] [address] [place] [address] Dr. Diann Dickerson Hemoglobin (Bld) [Mass/Vol] 12.5 g/dL Normal 12.0-16.0 [facility] Comment on above: Performed By: #### C BC #### [facility] [address] [place] [address] Dr. Diann Dickerson MCH (RBC) [Entitic mass] 33.2 pg Normal 26.7-34.0 [facility] Comment on above: Performed By: #### C BC #### [facility] [address] [place] [address] Dr. Diann Dickerson MCHC (RBC) [Mass/Vol] 34.1 g/dL Normal 29.9-35.2 [facility] Comment on above: Performed By: #### C BC #### [facility] [address] [place] [address] Dr. Diann Dickerson MCV (RBC) [Entitic vol] 97.6 fL Normal 81.0-99.0 [facility] Comment on above: Performed By: #### C BC #### [facility] [address] [place] [address] Dr. Diann Dickerson PLT 207 103/ul Normal 150-450 [facility] Comment on above: Performed By: #### C BC #### [facility] [address] [place] [address] Dr. Diann Dickerson RBC 3.76 106/ul Critically low 4.20-5.40 [facility] Comment on above: Performed By: #### C BC #### [facility] [address] [place] [address] Dr. Diann Dickerson WBC 6.3 103/ul Normal 4.0-11.0 [facility] Comment on above: Performed By: #### C BC #### [facility] [address] [place] [address] Dr. Diann Dickerson US PREG ANATOMY SINGLEon [...] FL: 3.4 cm 20 weeks 5 days EFW:0.035976; FL/AC: 0.309003 FL/BPD: 0.248324 HC/AC: 1.324285 GESTATIONAL AGE: Age by EDC: 20 weeks 1 day ANGELA by EDC: 04/07/2022 Age by current US: 20 weeks 4 day ANGELA by current US: 04/04/2022 IMPRESSION: Normal anatomy scan *Reference: [facility] Practice Guideline for the performance of Obstetric Ultrasound Examinations, June 22, 2007. Electronically authenticated by: MARBIN MCKEON Date: 2021-11-20 07:34 Normal [facility] Vital Signs Date Time Vital Sign Value Performing Clinician Dipesh hooks 08-16-2024 09:15-0500 Body height 175.3 cm Margret PETER Work Phone: [facility] 08-16-2024 09:15-0500 Body mass index (BMI) [Ratio] 27.32 kg/m2 Margret PETER Work Phone: [facility] 08-16-2024 09:15-0500 Body weight 83.92 kg Margret PETER Work Phone: [facility] 08-16-2024 09:15-0500 Diastolic blood pressure 68 mm[Hg] Margret PETER Work Phone: [facility] 08-16-2024 09:15-0500 Systolic blood pressure 116 mm[Hg] Margret PETER Work Phone: [facility] Encounters Encounter Date Encounter Type Care Provider Facility Start: 08-16-2024 End: 08-16-2024 Bamboo flowsheet Margret PETER Work Phone: [facility] Start: 08-16-2024 End: 08-16-2024 Bamboo flowsheet Margret PETER Work Phone: [facility] Start: 08-16-2024 End: 08-16-2024 ambulatory MARGRET HORTON Not Available Start: 08-16-2024 End: 08-16-2024 Office outpatient visit 15 minutes Margret PETER Work Phone: [facility] Comment on above: Annual wellness visi t (Primary Dx) Start: 08-16-2024 End: 08-16-2024 Patient encounter procedure Margret PETER Work Phone: [facility] Work Phone: Start: 10-21-2022 End: 10-21-2022 ambulatory NICHOLAS KEYS Facility:[facility] Start: 10-17-2022 End: 10-17-[address] DEANNE PIERRE Facility:[facility] Start: 04-01-2022 End: 04-03-2022 Evaluation and [...] Date Procedure Procedure Detail Performing Clinician Start: 08-11-2023 Cytp cerv/vag auto t hin layer prep mnl screen Margret PETER Work Phone: Start: 04-01-2022 Delivery of Products of Conception, External Approach DR GIULIA VAZQUEZ Start: 04-01-2022 Drainage of Amniotic Fluid, Therapeutic from Products of Conception, Via Natural or Artificial Opening DR GIULIA VAZQUEZ Start: 04-01-2022 Introduction of Othe r Hormone into Peripheral Vein, Percutaneous Approach DR GIULIA VAZQUEZ Start: 04-01-2022 Repair Perineum Skin , External Approach DR GIULIA VAZQUEZ Plan of Treatment Date Care Activity Detail Author Start: 09-10-2024 End: 09-10-2024 Patient encounter procedure 09/10/2024 8:20 AM EST Routine [facility] [address] [place] [id number] [facility] Start: 09-10-2024 End: 09-10-2024 Professional / ancillary services management 09/10/2024 8:00 AM EST Ancillary Procedure [facility] [address] [place] [id number] [facility] Start: 08-16-2024 End: 08-16-2025 Lipid 1996 panel - Serum or Plasma Lipid panel Lab Routine Annual wellness visit Expected: 08/16/2024 (Approximate), Expires: 08/16/2025 [facility] Comment on above: Expected: 08/16/2024 (Approximate), Expires: 08/16/2025 CBC W Auto Different ial panel - Blood CBC and differential Lab Routine Annual wellness visit Ordered: 08/16/2024 [facility] Comment on above: Ordered: 08/16/2024 Comprehensive metabo lic 2000 panel - Serum or Plasma Comprehensive metabolic panel Lab Routine Annual wellness visit Ordered: 08/16/2024 [facility] Comment on above: Ordered: 08/16/2024 Hemoglobin A1c/Hemoglobin.total in Blood Hemoglobin A1c Lab Routine Annual wellness visit Ordered: 08/16/2024 [facility] Comment on above: Ordered: 08/16/2024 Thyrotropin [Units/volume] in Serum or Plasma TSH Lab Routine Annual wellness visit Ordered: 08/16/2024 [facility] Work Phone: Comment on above: Ordered: 08/16/2024 Payers Date Payer Category Payer Medicaid (Managed Care) MEREDITH SHEN [id number] 2022 Private Health Insurance [facility] [id number] 1994 Unknown [id number] 2.16840.1.033605.3.579.2. 593 1994 Unknown [id number] 2.16840.1.488567.3.579.2. 593 1994 Unknown [id number] 2.16840.1.532945.3.579.2. 593 1994 Unknown [id number] 2.16840.1.944263.3.579.2. 593 1994 Unknown [id number] 2.16.840.1.573409.3.579.2. 593 1994 Unknown [id number] 2.16.840.1.759339.3.579.2. 593 1994 Unknown [id number] 2.16.840.1.641504.3.579.2. 593 1994 Unknown [id number] 2.16.840.1.510691.3.579.2. 593 1994 Unknown [id number] 2.16.840.1.030652.3.579.2. 593 1994 Unknown [id number] 2.16.840.1.860839.3.579.2. 593 1994 Unknown [id number] 2.16.840.1.217786.3.579.2. 593 1994 Unknown [id number] 2.16.840.1.401116.3.579.2. 1259 1959 Unknown [id number] 1959 Unknown [id number] 1959 Unknown [id number] Social History Date Type Detail Facility Tobacco smoking stat [facility] Tobacco smoking consumption unknown [facility] Start: 1995 Sex assigned at Female [facility] Start: 08-09-2024 Gender identity Identifies as female gender (finding) [facility] Start: 08-09-2024 Sexual orientation Heterosexual (fin ding) [facility] History of Present illness Narrative 08-16-2024 ROME Adams - 08/16/2024 8:50 AM EST Note Date & Type Note Facility 08-16-2024 History of Presen t illness Narrative Reason for Appointment: Patient ID: Sidra Ortega is a 28 y.o. female who presents for Gynecologic Exam Patient presents today for Acute Visit. MEDICATIONS Current Outpatient Medications Medication Instructions Vit-Fe Fumarate-FA ( VITAMINS PO) ALLERGIES No Known Allergies PROBLEMS Active Ambulatory Problems Diagnosis Date Noted No Active Ambulatory Problems Resolved Ambulatory Problems Diagnosis Date Noted No Resolved Ambulatory Problems No Additional Past Medical History HISTORY PAST MEDICAL HISTORY SOCIAL HISTORY No past medical history on file. Social History Tobacco Use Smoking status: Not on file Smokeless tobacco: Not on file Substance Use Topics Alcohol use: Not on file Drug use: Not on file FAMILY HISTORY No family history on file. SURGICAL HISTORY History reviewed. No pertinent surgical history. REVIEW OF SYSTEMS Review of Systems: Review of Systems Constitutional: Negative. HENT: Negative. Eyes: Negative. Respiratory: Negative. Cardiovascular: Negative. Gastrointestinal: Negative. Genitourinary: Negative. Musculoskeletal: Negative. Skin: Negative. Neurological: Negative. All other systems reviewed and are negative. Hematological: Negative. Endocrine: Negative. Allergic/Immunologic: Negative. OBJECTIVE Objective: Physical Exam Constitutional: Appearance: Normal appearance. She is normal weight. HENT: Head: Normocephalic. Cardiovascular: Rate and Rhythm: Normal rate. Pulses: Normal pulses. Pulmonary: Effort: Pulmonary effort is normal. Breath sounds: Normal breath sounds. Abdominal: Palpations: Abdomen is soft. Musculoskeletal: General: Normal range of motion. Neurological: General: No focal deficit present. Mental Status: She is alert and oriented to person, place, and time. Psychiatric: Mood and Affect: Mood normal. Behavior: Behavior normal. Thought Content: Thought content normal. Judgment: Judgment normal. Vitals and nursing note reviewed. Vitals: Estimated body mass index is 27.32 kg/m as calculated from the following: Height as of this encounter: 5' 9 . Weight as of this encounter: 185 lb. BP: 116/68 No LMP recorded. ASSESSMENT & PLAN ICD-10-CM 1. Well woman exam with routine gynecological exam Z01.419 Pap Smear Patient presents to discuss wellness labs. No annual exam performed at this time Documented by ROME Adams on behalf of: ROME Adams documented in this encounter [facility] Clinical Note 11-19-2021 Note Date & Type Note Facility 11-19-2021 Note PROCEDURE: XR WRIST LT MIN 3 V COMPARISON: None. HISTORY: Pain of left wrist FINDINGS: BONES:No fracture, acute abnormality, or significant arthropathy. SOFT TISSUES:Negative. No visible soft tissue swelling. EFFUSION:None visible. OTHER: Negative. IMPRESSION: No acute abnormality Electronically authenticated by: MARBIN MCKEON Date: 2021-11-19 13:16 [facility] Evaluation note Note Date & Type Note Facility Evaluation note Diagnosis Annual wellness visit- Primary documented in this encounter [facility] Summary Purpose Family History No Family History Records FoundNo Family History Records Found Advance Directives No Advanced Directives Records FoundNo Advanced Directives Records Found Additional Source Comments INFORMATION SOURCE (unrecogn ized section and content) DATE CREATED AUTHOR 10/24/2022 [facility] DATE CREATED AUTHOR AUTHOR'S ORGANIZ ATION 08/18/2024 [facility] [employer] Care Teams (unrecognized sec tion and content) [facility] Consultant Relationship Specialty Start Date End Date Deanne Pierre MD [address] [place] [address] PCP - General Family Medicine 08/11/23 [facility] Consultant Relationship Specialty Start Date End Date Deanne Pierre MD [address] [place] [address] PCP - General Family Medicine 08/11/23 Reason for Visit (unrecogniz ed section and content) Reason Comments Gynecologic Exam FOR RECORDS PERTAINING TO PATIENTS WHO ARE [...] BE BASED ON THE PRIMARY CLINICAL RECORDS. [facility] [employer] [facility]. provides no warranty or guarantee of the accuracy or completeness of information in this document.
== END 2024-09-10 08:04 | disposition home or self-care (01) ==
LOC: NOMS 08:03
PROVIDERS: PCP Family Medicine; Visit Provider Obstetrics & Gynecology
DX: Z34.91 Encounter for supervision of normal pregnancy, unspecified, first trimester (principal); Z3A.09 9 weeks gestation of pregnancy; N92.6 Irregular menstruation, unspecified
CPT/HCPCS: 76817

== ENCOUNTER 2024-10-01 13:27 | Outpatient (OUT) | payer BC, OTHER, SELFPAY ==
[2024-10-01 14:19] LABS: BOX Test Sent Out UNITY
[2024-10-01 14:20] LABS: BOX Test Reference Lab UNITY
[2024-10-01 14:21] LABS: Basophils Percent Auto 0.3 % (0.2-2.0); Eosinophils Absolute Auto 0.1 10^3/uL (0.0-0.7); Eosinophils Percent Auto 0.7 % (0.9-7.0); Hematocrit 37.8 % (36.0-48.0); Hemoglobin 13.2 g/dL (12.0-16.0); Immature Granulocytes Abs Auto 0.02 10^3/uL (0.00-0.03); Immature Granulocytes Pct Auto 0.3 % (0.0-0.5); Lymphocytes Percent Auto 27.2 % (20.5-60.0); Mean Corpuscular HGB Conc 34.9 g/dL (29.9-35.2); Mean Corpuscular Volume 91.5 fL (81.0-99.0); Monocytes Absolute Auto 0.4 10^3/uL (0.3-0.8); Monocytes Percent Auto 5.1 % (1.7-12.0); Neutrophils Absolute Auto 4.9 10^3/uL (1.4-6.5); Neutrophils Percent Auto 66.4 % (43.0-75.0); Platelet Count 248 10^3/uL (150-450); Red Blood Count 4.13 10^6/uL (4.20-5.40); Red Cell Distribution Width 11.6 % (11.0-15.0); White Blood Count 7.4 10^3/uL (4.0-11.0)
[2024-10-01 15:01] LABS: Estimated Average Glucose 88 mg/dL; Glycohemoglobin A1C 4.7 % (4.5-6.2)
[2024-10-01 17:10] LABS: Amphetamine Screen Urine NEGATIVE (NEGATIVE); Barbiturates Screen Urine NEGATIVE (NEGATIVE); Benzodiazepines Screen Urine NEGATIVE (NEGATIVE); Buprenorphine Screen Urine NEGATIVE (NEGATIVE); Cannabinoid Screen Urine NEGATIVE (NEGATIVE); Cocaine Screen Urine NEGATIVE (NEGATIVE); Methadone Screen Urine NEGATIVE (NEGATIVE); Methamphetamines Screen Urine NEGATIVE (NEGATIVE); Opiate Screen Urine NEGATIVE (NEGATIVE); Oxycodone Screen Urine NEGATIVE (NEGATIVE); Phencyclidine Screen Urine NEGATIVE (NEGATIVE); Tricyclic Antidepressant Urine NEGATIVE (NEGATIVE)
[2024-10-02 06:08] LABS: HCV Ab Non Reactive (Non Reactive)
[2024-10-02 07:07] LABS: HBsAg Screen Negative (Negative); HIV Ab/p24 Ag Screen Non Reactive (Non Reactive)
[2024-10-02 08:14] LABS: Rubella Antibodies, IgG 6.47 index (Immune >0.99)
[2024-10-02 13:07] LABS: Rapid Plasma Reagin, Quant Non Reactive titer (NonRea<1:1)
== END 2024-10-01 13:28 | disposition home or self-care (01) ==
LOC: LAB 13:27
PROVIDERS: PCP Family Medicine; Visit Provider Obstetrics & Gynecology
DX: Z34.01 Encounter for supervision of normal first pregnancy, first trimester (principal); Z36.0 Encounter for antenatal screening for chromosomal anomalies; N92.6 Irregular menstruation, unspecified
CPT/HCPCS: 36415; 80307; 83036; 85025; 86592; 86762; 86803; 86850; 86900; 86901; 87086; 87340; 87389

== ENCOUNTER 2024-11-17 14:22 | Outpatient (REF) | payer BC, OTHER, SELFPAY ==
--- OUTSIDE RECORDS SUMMARY | 2024-11-17 14:43 | XMS_ITS | CCD ---
Author Organization [facility] Care Team Providers Care Stamp Maker Name Role Phone JAVAN, DR PLATT Attending Unavailable JAVAN, DR PLATT Admitting Unavailable JAVAN, DR PLATT Consulting Unavailable REQUEST, DR NONE LISTED Primary Care Unavaila ble JAVAN, DR PLATT Admitting Unavailable HOY, DR ALICEA Primary Care Unavailable WEST, DR MARBIN Meyer Consulting Unavailable JAVAN, DR PLATT Attending Unavailable JAVAN, DR PLATT Consulting Unavailable JAVAN, DR PLATT Attending Unavailable JAVAN, DR PLATT Admitting Unavailable REQUEST, DR NONE LISTED Primary Care Unavaila ble WEST, DR MARBIN Meyer Consulting Unavailable JAVAN, DR PLATT Consulting Unavailable JAVAN, DR PLATT Attending Unavailable JAVAN, DR PLATT Admitting Unavailable REQUEST, DR NONE LISTED Primary Care Unavaila ble JAVAN, DR PLATT Admitting Unavailable JAVAN, DR PLATT Consulting Unavailable HOY, DR ALICEA Primary Care Unavailable JAVAN, DR PLATT Attending Unavailable HOY, DR ALICEA Consulting Unavailable LEMUEL, DR ALICEA Attending Unavailable ABNERY, DR ALICEA Admitting Unavailable ABNERY, DR ALICEA Primary Care Unavailable JAVAN, DR PLATT Admitting Unavailable JAVAN, DR PLATT Consulting Unavailable HOY, DR ALICEA Primary Care Unavailable JAVAN, DR PLATT Attending Unavailable ZIEBER, DR JAYSHREE Antoine Consulting Unavailable JAVAN, DR PLATT Attending Unavailable JAVAN, DR PLATT Admitting Unavailable JAVAN, DR PLATT Consulting Unavailable REQUEST, DR NONE LISTED Primary Care Unavaila ble JAVAN, DR PLATT Attending Unavailable JAVAN, DR PLATT Admitting Unavailable JAVAN, DR PLATT Consulting Unavailable REQUEST, DR NONE LISTED Primary Care Unavaila ble ELIANE, DR JAYSHREE Antoine Consulting Unavailable JAVAN, DR PLATT Consulting Unavailable HOY, DR ALICEA Primary Care Unavailable JAVAN, DR PLATT Attending Unavailable DR GIULIA EDOUARD Admitting Unavailable JAYSHREE WHIPPLE Consulting Unavailable DR GIULIA EDOUARD Procedure Practitioner Unavailab NICHOLAS Mendoza Consulting Unavailable NICHOLAS KEYS Attending Unavailable NICHOLAS KEYS Admitting Unavailable DR DEANNE PIERRE Primary Care Unavailable Deanne Pierre MD Primary Care Provider [phone] GIULIA EDOUARD Attending Unavailable MARGRET HORTON Attending Unavailable GIULIA EDOUARD Attending Unavailable Medications Current Medications Medication Drug Class(es) Dates Sig (Normalized) Sig (Original) azithromycin 250 mg oral tablet (15 sources) Macrolide Antimicrobial Start: 09-24-2024 End: 11-17-2024 azithromycin (Zithromax Z-Jamarcus) 250 MG tablet Indications: Acute sinusitis, recurrence not specified, unspecified location As directed 6 tablet 09/24/2024 11/17/2024 Discontinued Start: 12-17-2023 End: 08-10-2024 azithromycin (Zithromax Z-Pa k) 250 MG tablet Indications: Acute sinusitis, recurrence not specified, unspecified location As directed 6 tablet 03/05/2024 08/10/2024 Discontinued (Therapy completed) cephalexin 500 mg oral capsule (4 sources) Cephalosporin Antibacterial Start: 11-15-2024 End: 11-22-2024 take 1 capsule by mouth in the morning, then take 1 capsule by mouth in the evening, then take 1 capsule by mouth at bedtime cephalexin (Keflex) 500 MG capsule Indications: UTI symptoms Take 1 capsule (500 mg) by mouth in the morning and 1 capsule (500 mg) in the evening and 1 capsule (500 mg) before bedtime. Do all this for 7 days. 21 capsule 11/15/2024 11/22/2024 Active loratadine 10 mg disintegrating oral tablet (7 sources) Start: 10-14-2024 End: 11-17-2024 take 1 tablet by mouth once daily loratadine (Alavert) 10 MG disintegrating tablet Indications: Nausea Take 1 tablet (10 mg) by mouth Daily 30 tablet 2 10/14/2024 11/17/2024 Discontinued meclizine hydrochloride 12.5 mg oral tablet (7 sources) Antiemetic Start: 10-14-2024 take 1 tablet by mouth three times daily as needed for nausea meclizine (Antivert) 12.5 MG tablet Indications: Nausea Take 1 tablet (12.5 mg) by mouth 3 (three) times a day as needed for dizziness or nausea for up to 30 doses 30 tablet 2 10/14/2024 Active metroNIDAZOLE 500 mg oral tablet (5 sources) Nitroimidazole Antimicrobial Start: 11-03-2024 End: 11-17-2024 take 1 tablet by mouth once in the morning metroNIDAZOLE (Flagyl) 500 MG tablet Indications: Vaginal discharge during in second trimester Take 1 tablet (500 mg) by mouth in the morning and 1 tablet (500 mg) before bedtime. Do all this for 7 days. 14 tablet 11/03/2024 11/17/2024 Discontinued nitrofurantoin, macrocrystals 25 mg / nitrofurantoin, monohydrate 75 mg oral capsule (5 sources) Nitrofuran Antibacterial Start: 11-03-2024 End: 11-17-2024 take 1 capsule by mouth in the morning nitrofurantoin, macrocrystal-monohy drate, (Macrobid) 100 MG capsule Indications: Hematuria, unspecified type Take 1 capsule (100 mg) by mouth in the morning and 1 capsule (100 mg) before bedtime. Do all this for 7 days. 14 capsule 11/03/2024 11/17/2024 Discontinued Vit-Fe Fumarate-FA ( VITAMINS PO) (15 sources) Start: 06-22-2024 Vit-Fe Fumarate-FA ( VITAMINS PO) 06/22/2024 Active promethazine hydrochloride 12.5 mg oral tablet (12 sources) Phenothiazine Start: 08-24-2024 take 1 tablet by mouth every six hours as needed for nausea and vomiting and nausea and nausea promethazine (Phenergan) 12.5 MG tablet Indications: Nausea Take 1 tablet (12.5 mg) by mouth every 6 (six) hours if needed for nausea or vomiting for up to 30 doses Take 1 tablet by mouth every 6 hours as needed for nausea. 30 tablet 2 08/24/2024 Active Completed/Discontinued Medications Medication Drug Class(es) Dates Sig (Normalized) Sig (Original) desogestrel 0.15 mg / ethinyl estradiol 0.03 [...] Active Problems Problem Classification Problem Date Documented Date Episodic/Chronic Genitourinary symptoms and ill-defined conditions (7 sources) Personal history of urinary (tract) infections; Translations: [Unspecified symptoms and signs involving the genitourinary system] Onset: 12-31-2021 Episodic Immunizations and screening for infectious disease (2 sources) Exposure to sexually transmissible disorder; Translations: [Contact with and (suspected) exposure to infections with a predominantly sexual mode of transmission] 11-17-2024 Episodic Menstrual disorders (1 source) Missed period; Translations: [Irregular menstruation, unspecified] 09-10-2024 Chronic Other complications of (4 sources) Vaginal discharge; Translations: [Other specified related conditions, second trimester] 11-03-2024 Episodic Other connective tissue disease (1 source) Myalgia, other site; Translations: [MYALGIA OTHER SITE] Onset: 10-23-2022 Episodic Other and delivery including normal (9 sources) Single live ; Translations: [] Onset: 04-08-2022 09-10-2024 Episodic Other screening for suspected conditions (not mental disorders or infectious disease) (20 sources) Encounter for screening for Streptococcus B; Translations: [Encounter for screening for diabetes mellitus] Onset: 11-19-2021 Episodic Other upper respiratory infections (4 sources) Chronic sinusitis, unspecified; Translations: [CHRONIC SINUSITIS UNSPECIFIED] Onset: 10-17-2022 Chronic Other upper respiratory infections (11 sources) Acute sinusitis; Translations: [Acute sinusitis, unspecified] Onset: 09-24-2024 09-24-2024 Episodic Residual codes; unclassified (1 source) Gestation period, 9 weeks; Translations: [9 weeks gestation of ] 09-10-2024 Episodic Residual codes; unclassified (2 sources) Gestation period, 12 weeks; Translations: [12 weeks gestation of ] 10-06-2024 Episodic Residual codes; unclassified (2 sources) Gestation period, 16 weeks; Translations: [16 weeks gestation of ] 11-03-2024 Episodic Residual codes; unclassified (2 sources) Gestation period, 18 weeks; Translations: [18 weeks gestation of ] 11-17-2024 Episodic Spondylosis; intervertebral disc disorders; other back problems (3 sources) Cervicalgia; Translations: [CERVICALGIA] Onset: 10-21-2022 Episodic Unclassified (1 source) CONTACT W/AND (SUSP) EXPOS COVID-19; Translations: [CONTACT W/AND (SUSP) EXPOS COVID-19] Onset: 10-18-2022 Viral infection (1 source) Viral infection, unspecified; Translations: [VIRAL INFECTION UNSPECIFIED] Onset: 10-23-2022 Episodic Past or Other Problems Problem Classification Problem Date Documented Date Episodic/Chronic Nausea and vomiting (1 source) Nausea with [...] WRIST HAND FINGERS INIT] Onset: 11-21-2021 Episodic Residual codes; unclassified (1 source) 39 [...] Test Name Value Interpretation Reference Range Facility No Panel Informationon 11-16 STAPHYLOCOCCUS EPIDERMIDIS, HAEMOLYTICUS, LUGDUNENSIS, SAPROPHYTICUS (URINA 0 [facility] STAPHYLOCOCCUS EPIDERMIDIS, HAEMOLYTICUS, LUGDUNENSIS, SAPROPHYTICUS (URINA Not detected [facility] URINARY TRACT INFECTION (HTR X)on 11-16-2024 ACINETOBACTER BAUMANII 0 [facility] ACINETOBACTER BAUMANII Not detected [facility] JAKE ALBICANS, PARAPSILOSIS, TROPICALIS 0 [facility] JAKE ALBICANS, PARAPSILOSIS, TROPICALIS Not detected [facility] JAKE GLABRATA 0 [facility] JAKE GLABRATA Not detected [facility] JAKE KRUSEI 0 [facility] JAKE KRUSEI Not [facility] CITROBACTER FREUNDII 0 [facility] CITROBACTER FREUNDII Not detected NO [facility] ENTEROBACTER AEROGENES, CLOACAE 0 [facility] Health[facility] re ENTEROBACTER AEROGENES, CLOACAE Not detected [facility] re ENTEROCOCCUS FAECALIS, FAECIUM 0 [facility] ENTEROCOCCUS FAECALIS, FAECIUM Not detected [facility] ESCHERICHIA COLI 0 [facility] ESCHERICHIA COLI Not detected [facility] KLEBSIELLA PNEUMONIAE, OXYTOCA 0 [facility] are KLEBSIELLA PNEUMONIAE, OXYTOCA Not detected [facility] are MORGANELLA MORGANII 0 [facility] MORGANELLA MORGANII Not detected [facility] PROTEUS MIRABILIS, VULGARIS 0 [facility] PROTEUS MIRABILIS, VULGARIS Not detected [facility] PSEUDOMONAS AERUGINOSA 0 [facility] PSEUDOMONAS AERUGINOSA Not detected [facility] SERRATIA MARCESCENS 0 [facility] SERRATIA MARCESCENS Not detected [facility] STAPHYLOCOCCUS AUREUS 0 [facility] STAPHYLOCOCCUS AUREUS Not detected [facility] STREPTOCOCCUS AGALACTIAE (GROUP B STREP) 0 [facility] STREPTOCOCCUS AGALACTIAE (GROUP B STREP) Not detected [facility] STREPTOCOCCUS PYOGENES (GROUP A STREP) 0 [facility] STREPTOCOCCUS PYOGENES (GROUP A STREP) Not detected [facility] e CARDIOCHECK - LIPID AND GLUC OSEon 11-09-2024 Cholesterol [Mass/Vol] 209 mg/dL NINF - [facility] Cholesterol in HDL [Mass/Vol] 64 mg/dL M: 35-65 F: 35-80 [facility] Cholesterol in LDL [Mass/Vol] 108 mg/dL NINF - 100 [facility] Glucose [Mass/Vol] 98 mg/dL NINF - 100 [facility] Interpretation and review of laboratory results Abnormal [facility] Triglyceride [Mass/Vol] 185 mg/dL NINF - 150 [facility]inal[facility] macro (dipstick) panel (U)on 11-03-2024 Bilirubin, UA Few Negative - 4(70) +++ mg/dL [facility] Blood, UA Positive Negative - 50 Som/mcL [facility] Healthcare Color, UA Marichuy [facility] Glucose, UA Negative Negative - 1999(110) ++++ mg/dL [facility] Interpretation and review of laboratory results Abnormal [facility] Ketones, UA Negative Negative - 160(16) ++++ mg/dL [facility] Leukocytes, UA Negative Negative - 500+++ Eric/mcL [facility] Nitrite, UA Negative Negative - Positive [facility] pH, UA 5.5 5 - 9 [facility] Protein, UA Positive Negative - 1999(20) ++++ mg/dL [facility] Spec Grav, UA 1.03 1 - 1.03 [facility] Urobilinogen, UA 1.0 0.2 - 12 mg/dL [facility] Urinalysis macro (dipstick) panel (U)on 10-06-2024 Bilirubin, UA Negative Negative - 4(70) +++ mg/dL [facility] Blood, UA Negative Negative - 50 Som/mcL [facility] Healthcare Clarity, UA Clear [facility] Color, UA Yellow [facility] Glucose, UA Negative Negative - 1999(110) ++++ mg/dL [facility] Interpretation and review of laboratory results Normal [facility] Ketones, UA Negative Negative - 160(16) ++++ mg/dL [facility] Leukocytes, UA Negative Negative - 500+++ Eric/mcL [facility] Nitrite, UA Negative Negative - Positive [facility] pH, UA 5.5 5 - 9 [facility] Protein, UA Negative Negative - 1999(20) ++++ mg/dL [facility] Spec Grav, UA 1.03 1 - 1.03 [facility] Urobilinogen, UA 1.0 0.2 - 12 mg/dL [facility] BOX TESTon 10-01-2024 BOX TEST SENT OUT [employer] [facility] [address] [facility] e [address]OX[address] 10/01/2024 [facility] BOX [facility] HCG ( test) Ql (U)o n 09-10-2024 Interpretation and review of laboratory results Abnormal [facility] Preg Test, Ur Positive Negative [facility] Urinalysis macro (dipstick) panel (U)on 09-10-2024 Bilirubin, UA Negative Negative - 4(70) +++ mg/dL [facility] Blood, UA Positive Negative - 50 Som/mcL [facility] Comment on above: small Clarity, UA Clear [facility] re Color, UA Yellow [facility] e Glucose, UA Negative Negative - 1999(110) ++++ mg/dL [facility] Interpretation and review of laboratory results Abnormal [facility] Ketones, UA Negative Negative - 160(16) ++++ mg/dL [facility] Leukocytes, UA Trace Negative - 500+++ Eric/mcL [facility] Nitrite, UA Negative Negative - Positive [facility] pH, UA 5.5 5 - 9 [facility] Protein, UA Negative Negative - 1999(20) ++++ mg/dL [facility] Spec Grav, UA 1.025 1 - 1.03 [facility] Urobilinogen, UA 0.2 0.2 - 12 mg/dL [facility] Cytology Cervical or vaginal smear or scraping studyOrdered By: Jaimee Beckman on 08-11-2023 [facility] e CBC AUTO DIFFon 10-21-2022 BASO # 0.0 103/ul Normal 0.0-0.1 [facility] Comment on above: Performed By: #### C BC #### [facility] [address] [place] [address] Dr. Diann Dickerson Basophils/100 WBC (Bld) 0.4 % Normal 0.2-2.0 [facility] Comment on above: Performed By: #### C BC #### [facility] [address] [place] [address] Dr. Diann Dickerson EO # 0.0 103/ul Normal 0.0-0.7 [facility] Comment on above: Performed By: #### C BC #### [facility] [address] [place] [address] Dr. Diann Dickerson Eosinophils/100 WBC (Bld) 0.8 % Critically low 0.9-7.0 [facility] Comment on above: Performed By: #### C BC #### [facility] [address] [place] [address] Dr. Diann Dickerson Erythrocyte distribution width (RBC) [Ratio] 11.0 % Normal 11.0-15.0 [facility] Comment on above: Performed By: #### C BC #### [facility] [address] [place] [address] Dr. Diann Dickerson Hematocrit (Bld) [Volume fraction] 38.0 % Normal 36.0-48.0 [facility] Comment on above: Performed By: #### C BC #### [facility] [address] [place] [address] Dr. Diann Dickerson Hemoglobin (Bld) [Mass/Vol] 13.6 g/dL Normal 12.0-16.0 [facility] Comment on above: Performed By: #### C BC #### [facility] [address] [place] [address] Dr. Diann Dickerson IG # 0.02 10e3/ul Normal 0.00-0.03 [facility] Comment on above: Performed By: #### C BC #### [facility] [address] [place] [address] Dr. Diann Dickerson IG % 0.4 % Normal 0.0-0.5 [facility] Comment on above: Performed By: #### C BC #### [facility] [address] [place] [address] Dr. Diann Dickerson LYMPH # 2.0 103/ul Normal 1.2-3.8 [facility] Comment on above: Performed By: #### C BC #### [facility] [address] [place] [address] Dr. Diann Dickerson Lymphocytes/100 WBC (Bld) 38.2 % Normal 20.5-60.0 [facility] Comment on above: Performed By: #### C BC #### [facility] [address] [place] [address] Dr. Diann Dickerson MANUAL DIFF REQ NO Normal [facility] Comment on above: Performed By: #### C BC #### [facility] [address] [address] [address] Diann Dickerson MCH (RBC) [Entitic mass] 31.6 pg Normal 26.7-34.0 [facility] Comment on above: Performed By: #### C BC #### [facility] [address] [address] [address] Diann Dickerson MCHC (RBC) [Mass/Vol] 35.8 g/dL Critically high 29.9-35.2 [facility] Comment on above: Performed By: #### C BC #### [facility] [address] [place] [address] Dr. Diann Dickerson MCV (RBC) [Entitic vol] 88.2 fL Normal 81.0-99.0 [facility] Comment on above: Performed By: #### C BC #### [facility] [address] [place] [address] Dr. Diann Dickerson MONO # 0.4 103/ul Normal 0.3-0.8 [facility] Comment on above: Performed By: #### C BC #### [facility] [address] [place] [address] Dr. Diann Dickerson Monocytes/100 WBC (Bld) 7.7 % Normal 1.7-12.0 [facility] Comment on above: Performed By: #### C BC #### [facility] [address] [place] [address] Dr. Diann Dickerson NEUT # 2.7 103/ul Normal 1.4-6.5 [facility] Comment on above: Performed By: #### C BC #### [facility] [address] [place] [address] Dr. Diann Dickerson Neutrophils/100 WBC (Bld) 52.5 % Normal 43.0-75.0 [facility] Comment on above: Performed By: #### C BC #### [facility] [address] [place] [address] Dr. Diann Dickerson Platelet mean volume (Bld) [Entitic vol] 10.3 fL Normal 9.5-13.5 [facility] Comment on above: Performed By: #### C BC #### [facility] [address] [place] [address] Dr. Diann Dickerson PLT 251 103/ul Normal 150-450 [facility] Comment on above: Performed By: #### C BC #### [facility] [address] [place] [address] Dr. Diann Dickerson RBC 4.31 106/ul Normal 4.20-5.40 [facility] Comment on above: Performed By: #### C BC #### [facility] [address] [place] [address] Dr. Diann Dickerson WBC 5.2 103/ul Normal 4.0-11.0 [facility] Comment on above: Performed By: #### C BC #### [facility] [address] [place] [address] Dr. Diann Dickerson ER URINE PROFILEon 3 Bilirubin Ql (U) Negative Normal NEGATIVE [facility] Comment on above: Performed By: #### P REGU, ERUR #### [facility] [address] [place] [address] Dr. Diann Dickerson Clarity (U) CLEAR Normal CLEAR [facility] Comment on above: Performed By: #### P REGU, ERUR #### [facility] [address] [place] [address] Dr. Diann Dickerson Color (U) YELLOW Normal YELLOW [facility] Comment on above: Performed By: #### P REGU, ERUR #### [facility] [address] [place] [address] Dr. Diann Dickerson ERUGALLOD A micrscopic examination will be performed if indicated. Normal [facility] Comment on above: Performed By: #### P REGU, ERUR #### [facility] [address] [place] [address] Dr. Diann Dickerson Glucose Ql (U) Negative Normal NEGATIVE [facility] Comment on above: Performed By: #### P REGU, ERUR #### [facility] [address] [place] [address] Dr. Diann Dickerson Hemoglobin Ql (U) Negative Normal NEGATIVE [facility] Comment on above: Performed By: #### P REGU, ERUR #### [facility] [address] [place] [address] Dr. Diann Dickerson Ketones Ql (U) Negative Normal NEGATIVE [facility] Comment on above: Performed By: #### P REGU, ERUR #### [facility] [address] [place] [address] Dr. Diann Dickerson LEUKOCYTES Negative Normal NEGATIVE [facility] Comment on above: Performed By: #### P REGU, ERUR #### [facility] [address] [address] [address] Diann Dickerson Nitrite Ql (U) Negative Normal NEGATIVE [facility] Comment on above: Performed By: #### P REGU, ERUR #### [facility] [address] [place] [address] Dr. Diann Dickerson pH (U) 6.0 [pH] Normal 5-9 [facility] Comment on above: Performed By: #### P REGU, ERUR #### [facility] [address] [place] [address] Dr. Diann Dickerson SPEC GRAVITY 1.015 Normal 1.005-<=1.025 [facility] Comment on above: Performed By: #### P REGU, ERUR #### [facility] [address] [place] [address] Dr. Diann Dickerson UA PROTEIN Negative Normal NEGATIVE/ TRACE [facility] Comment on above: Performed By: #### P REGU, ERUR #### [facility] [address] [address] [address] Diann Dickerson UR MICRO IND NOT INDICATED Normal [facility] Comment on above: Performed By: #### P REGU, ERUR #### [facility] [address] [place] [address] Dr. Diann Dickerson Urobilinogen Qn (U) 1.0 {Guy'U}/dL Normal 0.2 - 1. 0 [facility] Comment on above: Performed By: #### P REGU, ERUR #### [facility] [address] [place] [address] Dr. Diann Dickerson GROUP A STREP CULTUREon 09-24 S. pyogenes Ag Ql (Unsp spec) Culture Observations: NEGATIVE FOR GROUP A STREPTOCOCCUS. Normal [facility] Comment on above: Performed By: #### G RASTCX, SSCRN #### [facility] [address] [place] [address] Dr. Diann Dickerson URon 10-21-2022 , QUAL Negative Normal NEGATIVE [facility] Comment on above: Performed By: #### P REGU, ERUR #### [facility] [address] [place] [address] Dr. Diann Dickerson PROF CHEM 8 (BAS METB)on Anion gap [Moles/Vol] 12.1 mmol/L Normal [facility] Comment on above: Performed By: #### C BC #### [facility] [address] [place] [address] Dr. Diann Dickerson Calcium [Mass/Vol] 9.3 mg/dL Normal 8.5-10.1 [facility] Comment on above: Performed By: #### C BC #### [facility] [address] [place] [address] Dr. Diann Dickerson Chloride [Moles/Vol] 101 mmol/L Normal 98-107 [facility] Comment on above: Performed By: #### C BC #### [facility] [address] [place] [address] Dr. Diann Dickerson CO2 [Moles/Vol] 28.3 mmol/L Normal 21.0-32.0 [facility] Comment on above: Performed By: #### C BC #### [facility] [address] [place] [address] Dr. Diann Dickerson Creatinine [Mass/Vol] 0.61 mg/dL Normal 0.55-1.02 [facility] Comment on above: Performed By: #### C BC #### [facility] [address] [place] [address] Dr. Diann Dickerson EGFR-AF MALIAN >60 Normal >=60 [facility] Comment on above: Performed By: #### C BC #### [facility] [address] [place] [address] Dr. Diann Dickerson EGFR-NON AF MALIAN >60 Normal >=60 [facility] Comment on above: Performed By: #### C BC #### [facility] [address] [address] [address] Diann Dickerson Glucose [Mass/Vol] 122 mg/dL Critically high 74-106 [facility] Comment on above: Performed By: #### C BC #### [facility] [address] [address] [address] Diann Dickerson Potassium [Moles/Vol] 3.4 mmol/L Critically low 3.5-5.1 [facility] Comment on above: Performed By: #### C BC #### [facility] [address] [place] [address] Dr. Diann Dickerson Sodium [Moles/Vol] 138 mmol/L Normal 136-145 [facility] Comment on above: Performed By: #### C BC #### [facility] [address] [address] [address] Diann Dickerson Urea nitrogen [Mass/Vol] 5.0 mg/dL Critically low 7.0-18.0 [facility] Comment on above: Performed By: #### C BC #### [facility] [address] [address] [address] Diann Dickerson Urea nitrogen/Creatinine [Mass ratio] 8.2 mg/mg Normal [facility] Comment on above: Performed By: #### C BC #### [facility] [address] [address] [address] Diann Dickerson STREPT SCREENon 10-21-2022 STREP SCREEN A Negative Normal NEGATIVE [facility] Comment on above: Performed By: #### G RASTCX, SSCRN #### [facility] [address] [place] [address] Dr. Diann Dickerson [facility] SARS-CoV-2 (COVID-19) RNA PREMA+probe Ql (Unsp spec) Not detected Normal NOT DETECTED [facility] Comment on above: Result Comment: This test is not yet approved or cleared by the [place] FDA. When there are no FDA-approved or cleared tests available, and other criteria are met, FDA can make tests available under an emergency access mechanism called an Emergency Use Authorization (EUA). The EUA for this test is supported by the Dialysis Equipment Technician of Health and Human Service's (HHS's) declaration [...] Performed By: #### C VDTBH #### [facility] [address] [place] [address] Dr. Diann Dickerson INFLUENZA A AND B AGon 10-[facility] SEE BELOW Normal [facility] Comment on above: Result Comment: Nega tive for Flu A protein angiten. Infection due to Flu A cannot be ruled out. Flu A angiten in the sample may be below the detection limit of the test. Performed By: #### U ACSIND #### [facility] [address] [place] [address] Dr. Diann Dickerson INFLUBNEG SEE BELOW Normal [facility] Comment on above: Result Comment: Nega tive for Flu B protein antigen. Infection due to Flu B cannot be ruled out. Flu B antigen in the sample may be below the detection limit of the test. Performed By: #### U ACSIND #### [facility] [address] [place] [address] Dr. Diann Dickerson INFLUENZA A AG Negative Normal NEGATIVE SEE COMMENT [facility] Comment on above: Performed By: #### U ACSIND #### [facility] [address] [place] [address] Dr. Diann Dickerson INFLUENZA B AG Negative Normal NEGATIVE SEE COMMENT [facility] Comment on above: Performed By: #### U ACSIND #### [facility] [address] [place] [address] Dr. Diann Dickerson CBC AUTO DIFFon 04-02-2022 BASO # 0.0 103/ul Normal 0.0-0.1 [facility] Comment on above: Performed By: #### C VDTBH #### [facility] [address] [place] [address] Dr. Diann Dickerson Basophils/100 WBC (Bld) 0.4 % Normal 0.2-2.0 [facility] Comment on above: Performed By: #### C VDTBH #### [facility] [address] [place] [address] Dr. Diann Dickerson EO # 0.1 103/ul Normal 0.0-0.7 [facility] Comment on above: Performed By: #### C VDTBH #### [facility] [address] [place] [address] Dr. Diann Dickerson Eosinophils/100 WBC (Bld) 0.6 % Critically low 0.9-7.0 [facility] Comment on above: Performed By: #### C VDTBH #### [facility] [address] [place] [address] Dr. Diann Dickerson Erythrocyte distribution width (RBC) [Ratio] 12.3 % Normal 11.0-15.0 [facility] Comment on above: Performed By: #### C VDTBH #### [facility] [address] [place] [address] Dr. Diann Dickerson Hematocrit (Bld) [Volume fraction] 35.5 % Critically low 36.0-48.0 [facility] Comment on above: Performed By: #### C VDTBH #### [facility] [address] [place] [address] Dr. Diann Dickerson Hemoglobin (Bld) [Mass/Vol] 12.3 g/dL Normal 12.0-16.0 [facility] Comment on above: Performed By: #### C VDTBH #### [facility] [address] [address] [address] Diann Dickerson IG # 0.07 10e3/ul Critically high 0.00-0.03 [facility] Comment on above: Performed By: #### C VDTBH #### [facility] [address] [address] [address] Diann Dickerson IG % 0.7 % Critically high 0.0-0.5 [facility] Comment on above: Performed By: #### C VDTBH #### [facility] [address] [place] [address] Dr. Diann Dickerson LYMPH # 1.3 103/ul Normal 1.2-3.8 [facility] Comment on above: Performed By: #### C VDTBH #### [facility] [address] [place] [address] Dr. Diann Dickerson Lymphocytes/100 WBC (Bld) 13.9 % Critically low 20.5-60.0 [facility] Comment on above: Performed By: #### C VDTBH #### [facility] [address] [place] [address] Dr. Diann Dickerson MANUAL DIFF REQ NO Normal [facility] Comment on above: Performed By: #### C VDTBH #### [facility] [address] [place] [address] Dr. Diann Dickerson MCH (RBC) [Entitic mass] 34.1 pg Critically high 26.7-34.0 [facility] Comment on above: Performed By: #### C VDTBH #### [facility] [address] [place] [address] Dr. Diann Dickerson MCHC (RBC) [Mass/Vol] 34.6 g/dL Normal 29.9-35.2 [facility] Comment on above: Performed By: #### C VDTBH #### [facility] [address] [place] [address] Dr. Diann Dickerson MCV (RBC) [Entitic vol] 98.3 fL Normal 81.0-99.0 [facility] Comment on above: Performed By: #### C VDTBH #### [facility] [address] [address] [address] Diann Dickerson MONO # 1.0 103/ul Critically high 0.3-0.8 [facility] Comment on above: Performed By: #### C VDTBH #### [facility] [address] [place] [address] Dr. Diann Dickerson Monocytes/100 WBC (Bld) 10.5 % Normal 1.7-12.0 [facility] Comment on above: Performed By: #### C VDTBH #### [facility] [address] [place] [address] Dr. Diann Dickerson NEUT # 6.9 103/ul Critically high 1.4-6.5 [facility] Comment on above: Performed By: #### C VDTBH #### [facility] [address] [place] [address] Dr. Diann Dickerson Neutrophils/100 WBC (Bld) 73.9 % Normal 43.0-75.0 [facility] Comment on above: Performed By: #### C VDTBH #### [facility] [address] [place] [address] Dr. Diann Dickerson Platelet mean volume (Bld) [Entitic vol] 10.8 fL Normal 9.5-13.5 [facility] Comment on above: Performed By: #### C VDTBH #### [facility] [address] [place] [address] Dr. Diann Dickerson PLT 177 103/ul Normal 150-450 [facility] Comment on above: Performed By: #### C VDTBH #### [facility] [address] [place] [address] Dr. Diann Dickerson RBC 3.61 106/ul Critically low 4.20-5.40 [facility] Comment on above: Performed By: #### C VDTBH #### [facility] [address] [place] [address] Dr. Diann Dickerson WBC 9.4 103/ul Normal 4.0-11.0 [facility] Comment on above: Performed By: #### C VDTBH #### [facility] [address] [address] [address] Diann Dickerson CBC AUTO DIFFon 04-01-2022 BASO # 0.0 103/ul Normal 0.0-0.1 [facility] Comment on above: Performed By: #### C BC #### [facility] [address] [address] [address] Diann Dickerson Basophils/100 WBC (Bld) 0.3 % Normal 0.2-2.0 [facility] Comment on above: Performed By: #### C BC #### [facility] [address] [place] [address] Dr. Diann Dickerson EO # 0.1 103/ul Normal 0.0-0.7 [facility] Comment on above: Performed By: #### C BC #### [facility] [address] [place] [address] Dr. Diann Dickerson Eosinophils/100 WBC (Bld) 0.6 % Critically low 0.9-7.0 [facility] Comment on above: Performed By: #### C BC #### [facility] [address] [place] [address] Dr. Diann Dickerson Erythrocyte distribution width (RBC) [Ratio] 12.4 % Normal 11.0-15.0 [facility] Comment on above: Performed By: #### C BC #### [facility] [address] [place] [address] Dr. Diann Dickerson Hematocrit (Bld) [Volume fraction] 38.0 % Normal 36.0-48.0 [facility] Comment on above: Performed By: #### C BC #### [facility] [address] [place] [address] Dr. Diann Dickerson Hemoglobin (Bld) [Mass/Vol] 13.1 g/dL Normal 12.0-16.0 [facility] Comment on above: Performed By: #### C BC #### [facility] [address] [place] [address] Dr. Diann Dickerson IG # 0.07 10e3/ul Critically high 0.00-0.03 [facility] Comment on above: Performed By: #### C BC #### [facility] [address] [place] [address] Dr. Diann Dickerson IG % 0.7 % Critically high 0.0-0.5 [facility] Comment on above: Performed By: #### C BC #### [facility] [address] [place] [address] Dr. Diann Dickerson LYMPH # 1.5 103/ul Normal 1.2-3.8 [facility] Comment on above: Performed By: #### C BC #### [facility] [address] [place] [address] Dr. Diann Dickerson Lymphocytes/100 WBC (Bld) 15.6 % Critically low 20.5-60.0 [facility] Comment on above: Performed By: #### C BC #### [facility] [address] [place] [address] Dr. Diann Dickerson MANUAL DIFF REQ NO Normal [facility] Comment on above: Performed By: #### C BC #### [facility] [address] [place] [address] Dr. Diann Dickerson MCH (RBC) [Entitic mass] 33.8 pg Normal 26.7-34.0 [facility] Comment on above: Performed By: #### C BC #### [facility] [address] [place] [address] Dr. Diann Dickerson MCHC (RBC) [Mass/Vol] 34.5 g/dL Normal 29.9-35.2 [facility] Comment on above: Performed By: #### C BC #### [facility] [address] [place] [address] Dr. iDann Dickerson MCV (RBC) [Entitic vol] 97.9 fL Normal 81.0-99.0 [facility] Comment on above: Performed By: #### C BC #### [facility] [address] [place] [address] Dr. Diann Dickerson MONO # 0.8 103/ul Normal 0.3-0.8 [facility] Comment on above: Performed By: #### C BC #### [facility] [address] [address] [address] Diann Dickerson Monocytes/100 WBC (Bld) 8.2 % Normal 1.7-12.0 [facility] Comment on above: Performed By: #### C BC #### [facility] [address] [address] [address] Diann Dickerson NEUT # 7.1 103/ul Critically high 1.4-6.5 [facility] Comment on above: Performed By: #### C BC #### [facility] [address] [place] [address] Dr. Diann Dickerson Neutrophils/100 WBC (Bld) 74.6 % Normal 43.0-75.0 [facility] Comment on above: Performed By: #### C BC #### [facility] [address] [place] [address] Dr. Diann Dickerson Platelet mean volume (Bld) [Entitic vol] 10.7 fL Normal 9.5-13.5 [facility] Comment on above: Performed By: #### C BC #### [facility] [address] [place] [address] Dr. Diann Dickerson PLT 172 103/ul Normal 150-450 [facility] Comment on above: Performed By: #### C BC #### [facility] [address] [place] [address] Dr. Diann Dickerson RBC 3.88 106/ul Critically low 4.20-5.40 [facility] Comment on above: Performed By: #### C BC #### [facility] [address] [place] [address] Dr. Diann Dickerson WBC 9.5 103/ul Normal 4.0-11.0 [facility] Comment on above: Performed By: #### C BC #### [facility] [address] [place] [address] Dr. Diann Dickerson [facility] SARS-CoV-2 (COVID-19) RNA PREMA+probe Ql (Unsp spec) Not detected Normal NOT DETECTED [facility] Comment on above: Result Comment: When [...] for this test is supported by the [place] of Health and Human Service's declaration that [...] longer be used). Performed By: #### C VDTB #### [facility] [address] [place] [address] Dr. Diann Dickerson DRUG SCREEN RAPID (URINE)on 04-01-2022 AMP Negative Normal NEGATIVE [facility] Comment on above: Performed By: #### C BC #### [facility] [address] [place] [address] Dr. Diann Dickerson BAR Negative Normal NEGATIVE [facility] Comment on above: Performed By: #### C BC #### [facility] [address] [place] [address] Dr. Diann Dickerson BUP Negative Normal NEGATIVE [facility] Comment on above: Performed By: #### C BC #### [facility] [address] [place] [address] Dr. Diann Dickerson BZO Negative Normal NEGATIVE [facility] Comment on above: Performed By: #### C BC #### [facility] [address] [place] [address] Dr. Diann Dickerson KRYS Negative Normal NEGATIVE [facility] Comment on above: Performed By: #### C BC #### [facility] [address] [place] [address] Dr. Diann Dickerson CUT-OFFS SEE BELOW Normal [facility] Comment on above: Result Comment: AMP (Amphetamine): [...] Performed By: #### C BC #### [facility] [address] [place] [address] Dr. Diann Dickerson DRUG CUT HEADER DRUG CLASS TEST SYSTEM CUT-OFF CONCENTRATIONS ARE FOLLOWS: Normal [facility] Comment on above: Performed By: #### C BC #### [facility] [address] [place] [address] Dr. Diann Dickerson mAMP Negative Normal NEGATIVE [facility] Comment on above: Performed By: #### C BC #### [facility] [address] [place] [address] Dr. Diann Dickerson MTD Negative Normal NEGATIVE [facility] Comment on above: Performed By: #### C BC #### [facility] [address] [place] [address] Dr. Diann Dickerson OPI Negative Normal NEGATIVE [facility] Comment on above: Performed By: #### C BC #### [facility] [address] [place] [address] Dr. Diann Dickerson OXY Negative Normal NEGATIVE [facility] Comment on above: Performed By: #### C BC #### [facility] [address] [place] [address] Dr. Diann Dickerson PCP Negative Normal NEGATIVE [facility] Comment on above: Performed By: #### C BC #### [facility] [address] [place] [address] Dr. Diann Dickerson PPX Negative Normal NEGATIVE [facility] Comment on above: Performed By: #### C BC #### [facility] [address] [address] [address] Diann Dickerson TCA Negative Normal NEGATIVE [facility] Comment on above: Performed By: #### C BC #### [facility] [address] [address] [address] Diann Dickerson THC Negative Normal NEGATIVE [facility] Comment on above: Performed By: #### C BC #### [facility] [address] [address] [address] Diann Dickerson GROUP B STREP CULTUREon [...] Tetracycline >=16 R F Normal [facility] Comment on above: Performed By: #### C BC #### [facility] [address] [place] [address] Dr. Diann Dickerson US PREG GROWTHon 03-04-2022 [...] RIO Date: 2022-03-04 17:33 Normal [facility] AMYLASEon 01-18-2022 Amylase [Catalytic activity/Vol] 30 U/L Normal 25-115 [facility] Comment on above: Performed By: #### C VDTBH #### [facility] [address] [place] [address] Dr. Diann Dickerson BUNon 01-18-2022 Urea nitrogen [Mass/Vol] 7.0 mg/dL Normal 7.0-18.0 [facility] Comment on above: Performed By: #### C VDTBH #### [facility] [address] [place] [address] Dr. Diann Dickerson CBC AUTO DIFFon 01-18-2022 BASO # 0.0 103/ul Normal 0.0-0.1 [facility] Comment on above: Performed By: #### C VDTBH #### [facility] [address] [place] [address] Dr. Diann Dickerson Basophils/100 WBC (Bld) 0.3 % Normal 0.2-2.0 [facility] Comment on above: Performed By: #### C VDTBH #### [facility] [address] [place] [address] Dr. Diann Dickerson EO # 0.1 103/ul Normal 0.0-0.7 [facility] Comment on above: Performed By: #### C VDTBH #### [facility] [address] [place] [address] Dr. Diann Dickerson Eosinophils/100 WBC (Bld) 0.6 % Critically low 0.9-7.0 [facility] Comment on above: Performed By: #### C VDTBH #### [facility] [address] [place] [address] Dr. Diann Dickerson Erythrocyte distribution width (RBC) [Ratio] 12.6 % Normal 11.0-15.0 [facility] Comment on above: Performed By: #### C VDTBH #### [facility] [address] [address] [address] Diann Dickerson Hematocrit (Bld) [Volume fraction] 36.8 % Normal 36.0-48.0 [facility] Comment on above: Performed By: #### C VDTBH #### [facility] [address] [place] [address] Dr. Diann Dickerson Hemoglobin (Bld) [Mass/Vol] 12.6 g/dL Normal 12.0-16.0 [facility] Comment on above: Performed By: #### C VDTBH #### [facility] [address] [place] [address] Dr. Diann Dickerson IG # 0.06 10e3/ul Critically high 0.00-0.03 [facility] Comment on above: Performed By: #### C VDTBH #### [facility] [address] [place] [address] Dr. Diann Dickerson IG % 0.7 % Critically high 0.0-0.5 [facility] Comment on above: Performed By: #### C VDTBH #### [facility] [address] [place] [address] Dr. Diann Dickerson LYMPH # 0.7 103/ul Critically low 1.2-3.8 [facility] Comment on above: Performed By: #### C VDTBH #### [facility] [address] [place] [address] Dr. Diann Dickerson Lymphocytes/100 WBC (Bld) 7.6 % Critically low 20.5-60.0 [facility] Comment on above: Performed By: #### C VDTBH #### [facility] [address] [address] [address] Diann Dickerson MANUAL DIFF REQ NO Normal [facility] Comment on above: Performed By: #### C VDTBH #### [facility] [address] [place] [address] Dr. Diann Dickerson MCH (RBC) [Entitic mass] 33.3 pg Normal 26.7-34.0 [facility] Comment on above: Performed By: #### C VDTBH #### [facility] [address] [place] [address] Dr. Diann Dickerson MCHC (RBC) [Mass/Vol] 34.2 g/dL Normal 29.9-35.2 [facility] Comment on above: Performed By: #### C VDTBH #### [facility] [address] [place] [address] Dr. Diann Dickerson MCV (RBC) [Entitic vol] 97.4 fL Normal 81.0-99.0 [facility] Comment on above: Performed By: #### C VDTBH #### [facility] [address] [place] [address] Dr. Diann Dickerson MONO # 0.5 103/ul Normal 0.3-0.8 [facility] Comment on above: Performed By: #### C VDTBH #### [facility] [address] [place] [address] Dr. Diann Dickerson Monocytes/100 WBC (Bld) 5.3 % Normal 1.7-12.0 [facility] Comment on above: Performed By: #### C VDTBH #### [facility] [address] [place] [address] Dr. Diann Dickerson NEUT # 7.6 103/ul Critically high 1.4-6.5 [facility] Comment on above: Performed By: #### C VDTBH #### [facility] [address] [place] [address] Dr. Diann Dickerson Neutrophils/100 WBC (Bld) 85.5 % Critically high 43.0-75.0 [facility] Comment on above: Performed By: #### C VDTBH #### [facility] [address] [place] [address] Dr. Diann Dickerson Platelet mean volume (Bld) [Entitic vol] 10.2 fL Normal 9.5-13.5 [facility] Comment on above: Performed By: #### C VDTBH #### [facility] [address] [place] [address] Dr. Diann Dickerson PLT 198 103/ul Normal 150-450 [facility] Comment on above: Performed By: #### C VDTBH #### [facility] [address] [place] [address] Dr. Diann Dickerson RBC 3.78 106/ul Critically low 4.20-5.40 [facility] Comment on above: Performed By: #### C VDTBH #### [facility] [address] [place] [address] Dr. Diann Dickerson WBC 8.9 103/ul Normal 4.0-11.0 [facility] Comment on above: Performed By: #### C VDTBH #### [facility] [address] [place] [address] Dr. Diann Dickerson CREATININEon 01-18-2022 Creatinine [Mass/Vol] 0.53 mg/dL Critically low 0.55-1.02 [facility] Comment on above: Performed By: #### C VDTBH #### [facility] [address] [place] [address] Dr. Diann Dickerson EGFR-AF MALIAN >60 Normal >=60 [facility] Comment on above: Performed By: #### C VDTBH #### [facility] [address] [place] [address] Dr. Diann Dickerson EGFR-NON AF MALIAN >60 Normal >=60 [facility] Comment on above: Performed By: #### C VDTBH #### [facility] [address] [place] [address] Dr. Diann Dickerson ELECTROLYTESon 01-18-2022 Anion gap [Moles/Vol] 9.6 mmol/L Normal [facility] Comment on above: Performed By: #### C VDTBH #### [facility] [address] [place] [address] Dr. Diann Dickerson Chloride [Moles/Vol] 106 mmol/L Normal 98-107 [facility] Comment on above: Performed By: #### C VDTBH #### [facility] [address] [place] [address] Dr. Diann Dickerson CO2 [Moles/Vol] 23.5 mmol/L Normal 21.0-32.0 [facility] Comment on above: Performed By: #### C VDTBH #### [facility] [address] [place] [address] Dr. Diann Dickerson Potassium [Moles/Vol] 4.1 mmol/L Normal 3.5-5.1 [facility] Comment on above: Performed By: #### C MILESTBH #### [facility] [address] [place] [address] Dr. Diann Dickerson Sodium [Moles/Vol] 135 mmol/L Critically low 136-145 [facility] Comment on above: Performed By: #### C MILESTBH #### [facility] [address] [place] [address] Dr. Diann LYNOTon 01-18-2022 AST [Catalytic activity/Vol] 15 U/L Normal 15-37 [facility] Comment on above: Performed By: #### C MILESTBH #### [facility] [address] [place] [address] Dr. Diann Dickerson SGPTon 01-18-2022 ALT [Catalytic activity/Vol] 19 U/L Normal 14-59 [facility] Comment on above: Performed By: #### Mary AQUINOTBH #### [facility] [address] [place] [address] Dr. Diann Dickerson TSHon 01-18-2022 TSH 1.409 uIU/mL Normal 0.470-4.680 [facility] Comment on above: Performed By: #### C MILESTBH #### [facility] [address] [place] [address] Dr. Diann Dickerson TSH RANGE SEE BELOW Normal [facility] Comment on above: Result Comment: <0.3 4 UIU/ml HYPERTHYROID 0.34-5.60 UIU/ml EUTHYROID >5.60 UIU/ml HYPOTHYROID Performed By: #### C VDTBH #### [facility] [address] [place] [address] Dr. Diann Dickerson UA (CLEAN/CATCH) DULSER/MICRO I F IND.on 01-18-2022 Bilirubin Ql (U) Negative Normal NEGATIVE [facility] Comment on above: Performed By: #### U ACSIND #### [facility] [address] [address] [address] Diann Dickerson Clarity (U) CLEAR Normal CLEAR [facility] Comment on above: Performed By: #### U ACSIND #### [facility] [address] [address] [address] Diann Dickerson Color (U) YELLOW Normal YELLOW [facility] Comment on above: Performed By: #### U ACSIND #### [facility] [address] [address] [address] Diann Dickerson Glucose Ql (U) Negative Normal NEGATIVE [facility] Comment on above: Performed By: #### U ACSIND #### [facility] [address] [place] [address] Dr. Diann Dickerson Hemoglobin Ql (U) Negative Normal NEGATIVE [facility] Comment on above: Performed By: #### U ACSIND #### [facility] [address] [address] [address] Diann Dickerson Ketones Ql (U) Negative Normal NEGATIVE [facility] Comment on above: Performed By: #### U ACSIND #### [facility] [address] [address] [address] Diann Dickerson LEUKOCYTES Negative Normal NEGATIVE [facility] Comment on above: Performed By: #### U ACSIND #### [facility] [address] [address] [address] Diann Dickerson Nitrite Ql (U) Negative Normal NEGATIVE [facility] Comment on above: Performed By: #### U ACSIND #### [facility] [address] [address] [address] Diann Dickerson pH (U) 8.5 [pH] Normal 5-9 [facility] Comment on above: Performed By: #### U ACSIND #### [facility] [address] [place] [address] Dr. Diann Dickerson SPEC GRAVITY 1.015 Normal 1.005-<=1.025 [facility] Comment on above: Performed By: #### U ACSIND #### [facility] [address] [address] [address] Diann Dickerson UA PROTEIN Negative Normal NEGATIVE/ TRACE [facility] Comment on above: Performed By: #### U ACSIND #### [facility] [address] [address] [address] Diann Dickerson UR MICRO IND NOT INDICATED Normal [facility] Comment on above: Performed By: #### U ACSIND #### [facility] [address] [address] [address] Diann Dickerson Urobilinogen Qn (U) 0.2 {Guy'U}/dL Normal 0.2 - 1. 0 [facility] Comment on above: Performed By: #### U ACSIND #### [facility] [address] [place] [address] Dr. Diann Dickerson US PREG BIOPHY W [...] MCKEON Date: 2022-01-18 10:45 Normal [facility] US PREG CERVICAL LENGTHon US PREG CERVICAL LENGTH EXAMINATION: US PREG CERVICAL LENGTH HISTORY: Nausea and vomiting COMPARISON: 12/31/2021 FINDINGS: position: Cephalic Heart rate: 141 bpm Cervix: 4.7 cm, closed Clinical age: 20 weeks 5 days Clinical ANGELA: 04/07/2022 IMPRESSION: Closed cervix measuring 4.7 cm in length Electronically authenticated by: MARBIN MCKEON Date: 2022-01-18 10:46 Normal [facility] CULTURE URINEon 12-31-2021 CULTURE URINE Culture Observations: No growth Normal [facility] Comment on above: Performed By: #### C BC #### [facility] [address] [place] [address] Dr. Diann Dickerson US PREG AMNIOTIC FLUID [...] JAYSHREE DEL RIO Date: 2021-12-31 12:41 Normal [facility] GLUCOSE - 1HRon 12-17-2021 Glucose [Mass/Vol] 134 mg/dL Critically high 74-106 [facility] Comment on above: Performed By: #### G LU1HR #### [facility] [address] [place] [address] Dr. Diann Dickerson HEMOGRAM AND PLATELon 2021 Hematocrit (Bld) [Volume fraction] 36.7 % Normal 36.0-48.0 [facility] Comment on above: Performed By: #### C BC #### [facility] [address] [place] [address] Dr. Diann Dickerson Hemoglobin (Bld) [Mass/Vol] 12.5 g/dL Normal 12.0-16.0 [facility] Comment on above: Performed By: #### C BC #### [facility] [address] [place] [address] Dr. Diann Dickerson MCH (RBC) [Entitic mass] 33.2 pg Normal 26.7-34.0 [facility] Comment on above: Performed By: #### C BC #### [facility] [address] [place] [address] Dr. Diann Dickerson MCHC (RBC) [Mass/Vol] 34.1 g/dL Normal 29.9-35.2 [facility] Comment on above: Performed By: #### C BC #### [facility] [address] [place] [address] Dr. Diann Dickerson MCV (RBC) [Entitic vol] 97.6 fL Normal 81.0-99.0 [facility] Comment on above: Performed By: #### C BC #### [facility] [address] [address] [address] Diann Dickerson PLT 207 103/ul Normal 150-450 [facility] Comment on above: Performed By: #### C BC #### [facility] [address] [address] [address] Diann Dickerson RBC 3.76 106/ul Critically low 4.20-5.40 [facility] Comment on above: Performed By: #### C BC #### [facility] [address] [place] [address] Dr. Diann Dickerson WBC 6.3 103/ul Normal 4.0-11.0 [facility] Comment on above: Performed By: #### C BC #### [facility] [address] [place] [address] Dr. Diann Dickerson US PREG ANATOMY SINGLEon [...] FL: 3.4 cm 20 weeks 5 days EFW:[id number]; FL/AC: 0.640953 FL/BPD: 0.721247 HC/AC: 1.138392 GESTATIONAL AGE: Age by EDC: 20 weeks 1 day ANGELA by EDC: 04/07/2022 Age by current US: 20 weeks 4 day ANGELA by current US: 04/04/2022 IMPRESSION: Normal anatomy scan *Reference: [facility] Practice Guideline for the performance of Obstetric Ultrasound Examinations, June 22, 2007. Electronically authenticated by: MARBIN MCKEON Date: 2021-11-20 07:34 Normal [facility] Vital Signs Date Time Vital Sign Value Performing Clinician Fernandoi jessee 11-17-2024 09:19-0500 Body mass index (BMI) [Ratio] 27.73 kg/m2 Margret PETER Work Phone: [facility] 11-17-2024 09:19-0500 Body weight 85.19 kg Margret PETER Work Phone: [facility] 11-17-2024 09:19-0500 Diastolic blood pressure 70 mm[Hg] Margret PETER Work Phone: [facility] 11-17-2024 09:19-0500 Systolic blood pressure 110 mm[Hg] Margret PETER Work Phone: [facility] 11-03-2024 10:57-0500 Body mass index (BMI) [Ratio] 27.65 kg/m2 Giulia Javan DO Work Phone: [facility] 11-03-2024 10:57-0500 Body weight 84.94 kg Giulia Javan DO Work Phone: [facility] 10-06-2024 16:40-0500 Body mass index (BMI) [Ratio] 27.59 kg/m2 Giulia Javan DO Work Phone: [facility] 10-06-2024 16:40-0500 Body weight 84.73 kg Giulia Javan DO Work Phone: [facility] 10-06-2024 16:40-0500 Diastolic blood pressure 68 mm[Hg] Giulia Javan DO Work Phone: [facility] 01-15-2025 16:40-0500 Systolic blood pressure 102 mm[Hg] Giulia Edouard DO Work Phone: [facility] 09-10-2024 08:45-0500 Body mass index (BMI) [Ratio] 27.32 kg/m2 Nom Nurse [facility] 09-10-2024 08:45-0500 Body weight 83.92 kg [facility] Nurse [facility] 09-10-2024 08:45-0500 Diastolic blood pressure 70 mm[Hg] [facility] Nurse [facility] 09-10-2024 08:45-0500 Systolic blood pressure 118 mm[Hg] Nom Nurse [facility] 08-16-2024 09:15-0500 Body height 175.3 cm Margret PETER Work Phone: [facility] 08-16-2024 09:15-0500 Body mass index (BMI) [Ratio] 27.32 kg/m2 Margret PETER Work Phone: [facility] 08-16-2024 09:15-0500 Body weight 83.92 kg Margret PETER Work Phone: [facility] 08-16-2024 09:15-0500 Diastolic blood pressure 68 mm[Hg] Margret PETER Work Phone: [facility] 08-16-2024 09:15-0500 Systolic blood pressure 116 mm[Hg] Margret PETER Work Phone: [facility] Encounters Encounter Date Encounter Type Care Provider Facility Start: 11-17-2024 End: 11-17-2024 Bamboo flowsheet Margret Horton PA Work Phone: [facility] Start: 11-17-2024 End: 11-17-2024 Bamboo flowsheet Margret Horton PA Work Phone: [facility] Start: 11-17-2024 End: 11-17-2024 Patient encounter procedure Margret PETER Work Phone: [facility] Work Phone: Start: 11-17-2024 End: 11-17-2024 Periodic preventive med est patient 18-39 yrs Margret Shaniqua PA Work Phone: [facility] Comment on above: Well woman exam with routine gynecological exam; 18 weeks gestation of ; Exposure to STD; Vaginal discharge; Second trimester Start: 11-15-2024 End: 11-16-2024 External Result Encounter Giulia Javan DO Work Phone: [facility] External Department Unsolicited Start: 11-15-2024 End: 11-16-2024 External Result Encounter Igulia Javan DO Work Phone: [facility] Unsolicited Start: 11-09-2024 End: 11-09-2024 ambulatory GIULIA JAVAN Not Available Start: 11-09-2024 End: 11-09-2024 Patient encounter procedure [facility] Comment on above: Screening for lipoid disorders; Screening for diabetes mellitus Start: 11-03-2024 End: 11-03-2024 ambulatory GIULIA JAVAN Not Available Start: 11-03-2024 End: 11-03-2024 flow sheet Giulia Javan DO Work Phone: [facility] Comment on above: Second trimester pre gnancy; Hematuria, unspecified type; Need for maternal serum alpha-protein (MSAFP) screening; 16 weeks gestation of ; Screening, , for anatomic survey; Vaginal discharge during in second trimester Start: 10-06-2024 End: 10-06-2024 ambulatory GIULIA JAVAN Not Available Start: 10-06-2024 End: 10-06-2024 Bamboo flowsheet Giulia Javan DO Work Phone: [facility] Start: 10-06-2024 End: 10-06-2024 Bamboo flowsheet Giulia Javan DO Work Phone: [facility] Start: 10-06-2024 End: 10-06-2024 flow sheet Giulia Javan DO Work Phone: [facility] Comment on above: 12 weeks gestation o f ; First trimester Start: 10-01-2024 End: 10-01-2024 Clinisync Result Encounter Giulia Javan DO Work Phone: [facility] External Department Unsolicited Start: 10-01-2024 End: 10-01-2024 Clinisync Result Encounter Giulia Edouard DO Work Phone: [facility] External Department Unsolicited Start: 09-10-2024 End: 09-10-2024 ambulatory GIULIA EDOUARD Not Available Start: 09-10-2024 End: 09-10-2024 Patient encounter procedure [facility] Javan Nurse [facility] Comment on above: Missed menses; , unspecified gestational age; Encounter for supervision of normal first in first trimester; 9 weeks gestation of Start: 08-16-2024 End: 08-16-2024 Bamboo flowsheet Margret PETER Work Phone: [facility] Start: 08-16-2024 End: 08-16-2024 Bamboo flowsheet Margret PETER Work Phone: [facility] Start: 08-16-2024 End: 08-16-2024 ambulatory MARGRET HORTON Not Available Start: 08-16-2024 End: 08-16-2024 Office outpatient visit 15 minutes Margret PETER Work Phone: [facility] Comment on above: Annual wellness visi t (Primary Dx) Start: 08-16-2024 End: 08-16-2024 Patient encounter procedure Margret PETER Work Phone: [facility] Work Phone: Start: 10-21-2022 End: 10-21-2022 ambulatory NICHOLAS KEYS Facility:[facility] Start: 10-17-2022 End: 10-17-[address] DEANNE PIERRE Facility:[facility] Start: 04-01-2022 End: 04-03-2022 Evaluation and management of inpatient DR GIULIA EDOUARD Facility:[facility] Start: 03-11-2022 End: 03-11-[address] GIULIA EDOUARD Facility:[facility] Start: 03-04-2022 End: 03-05-[address] GIULIA EDOUARD Facility:[facility] Start: 01-18-2022 End: 01-18-[address] GIULIA EDOUARD Facility:[facility] Start: 12-31-2021 End: 12-31-[address] GIULIA EDOUARD Facility:[facility] Start: 12-31-2021 End: 01-01-[address] GIULIA EDOUARD Facility:[facility] Start: 12-17-2021 End: 12-18-[address] GIULIA EDOUARD Facility:[facility] Start: 11-19-2021 End: 11-20-[address] GIULIA EDOUARD Facility:[facility] Start: 11-19-2021 End: 11-20-[address] GIULIA EDOUARD Facility:[facility] Procedures Date Procedure Procedure Detail Performing Clinician Start: 11-15-2024 URINARY TRACT INFECT ION (HTRX) Giulia Edouard DO Work Phone: Start: 11-09-2024 Lipid panel Rob Pelayo DO Work Phone: Start: 11-03-2024 Urnls dip stick/tabl et rgnt non-auto w/o micrscp Giulia Edouard DO Work Phone: Start: 10-06-2024 Urnls dip stick/tabl et rgnt non-auto w/o micrscp Giulia Coronelzio DO Work Phone: Start: 10-01-2024 BOX TEST Giulia giron DO Work Phone: Start: 09-10-2024 End: 09-10-2024 Urnls dip stick/tablet rgnt non-auto w/o micrscp Giulia Javan DO Work Phone: Start: 08-11-2023 Microscopic observat ion [Identifier] in Cervix by Cyto stain Giulia Edouard DO Work Phone: Start: 08-11-2023 Cytp cerv/vag auto t hin layer prep mnl screen Margret PETER Work Phone: Start: 04-01-2022 Delivery of Products of Conception, External Approach DR GIULIA EDOUARD Start: 04-01-2022 Drainage of Amniotic Fluid, Therapeutic from Products of Conception, Via Natural or Artificial Opening DR GIULIA EDOUARD Start: 04-01-2022 Introduction of Othe r Hormone into Peripheral Vein, Percutaneous Approach DR GIULIA EDOUARD Start: 04-01-2022 Repair Perineum Skin , External Approach DR GIULIA EDOUARD Plan of Treatment Date Care Activity Detail Author Start: 08-11-2026 Screening for malign ant neoplasm of cervix [facility] Start: 11-29-2024 End: 11-29-2024 Patient encounter procedure [facility] Start: 11-29-2024 End: 11-29-2024 Professional / ancillary services management 11/29/2024 8:00 AM EDT Ancillary Procedure [facility] [address] [place] [id number] [facility] Start: 11-03-2024 End: 11-03-2024 Patient encounter procedure 11/03/2024 3:40 PM EST Routine [facility] [address] [id number] Giulia Edouard, DO [address] [place] [address] [facility] Start: 11-03-2024 End: 12-01-2024 Alpha fetoprotein, maternal Alpha fetoprotein, maternal Lab Routine Need for maternal serum alpha-protein (MSAFP) screening Expected: 11/03/2024 (Approximate), Expires: 12/01/2024 [facility] Comment on above: Expected: 11/03/2024 (Approximate), Expires: 12/01/2024 Start: 11-03-2024 End: 11-03-2025 US for US OB 14+ weeks anatomy scan Imaging Routine Screening, , for anatomic survey Expected: 11/03/2024 (Approximate), Expires: 11/03/2025 [facility] Work Phone: Comment on above: Expected: 11/03/2024 (Approximate), Expires: 11/03/2025 Start: 2024 Screening for malign ant neoplasm of cervix HPV/Cotest [facility] Start: 10-06-2024 End: 10-06-2024 Patient encounter procedure 10/06/2024 10:50 AM EST Routine [facility] [address] [place] [id number] Giulia Edouard, DO [address] [place], [place] [id number] [facility] Start: 09-10-2024 End: 09-10-2025 ABO/Rh ABO/Rh Lab Routine Missed menses , unspecified gestational age Expected: 09/10/2024 (Approximate), Expires: 09/10/2025 [facility] Comment on above: Expected: 09/10/2024 (Approximate), Expires: 09/10/2025 Start: 09-10-2024 End: 09-10-2025 Blood type and Indirect antibody screen panel - Blood Type and screen Lab Routine Missed menses , unspecified gestational age Expected: 09/10/2024 (Approximate), Expires: 09/10/2025 [facility] Work Phone: Comment on above: Expected: 09/10/2024 (Approximate), Expires: 09/10/2025 Start: 09-10-2024 End: 09-10-2025 Drugs of abuse panel - Urine by Screen method Rapid drug screen, urine Lab Routine , unspecified gestational age Encounter for supervision of normal first in first trimester Expected: 09/10/2024 (Approximate), Expires: 09/10/2025 [facility] Comment on above: Expected: 09/10/2024 (Approximate), Expires: 09/10/2025 Start: 09-10-2024 End: 09-10-2025 US Pelvis transvaginal US OB transvaginal Imaging Routine Missed menses Expected: 09/10/2024 (Approximate), Expires: 09/10/2025 [facility] Comment on above: Expected: 09/10/2024 (Approximate), Expires: 09/10/2025 Start: 09-10-2024 End: 09-10-2024 Patient encounter procedure 09/10/2024 8:20 AM EST Routine [facility] [address] [id number] [facility] Start: 09-10-2024 End: 09-10-2024 Professional / ancillary services management 09/10/2024 8:00 AM EST Ancillary Procedure [facility] [address] [place] [phone] [facility] Start: 08-16-2024 End: 08-16-2025 Lipid 1996 panel - Serum or Plasma Lipid panel Lab Routine Annual wellness visit Expected: 08/16/2024 (Approximate), Expires: 08/16/2025 [facility] Comment on above: Expected: 08/16/2024 (Approximate), Expires: 08/16/2025 Start: 05-23-2024 Influenza vaccination Influenza Vacc ine (#1) [facility] Bacteria identified in Urine by Culture Urine culture Microbiology Routine Missed menses Ordered: 09/10/2024 [facility] Comment on above: Ordered: 09/10/2024 CBC W Auto Different ial panel - Blood CBC and differential Lab Routine Annual wellness visit Ordered: 08/16/2024 [facility] Comment on above: Ordered: 08/16/2024 CBC W Auto Different ial panel - Blood CBC and differential Lab Routine Missed menses , unspecified gestational age Ordered: 09/10/2024 [facility] Comment on above: Ordered: 09/10/2024 CHLAMYDIA TRACHOMATI S (GENITO/STI) CHLAMYDIA TRACHOMATIS (GENITO/STI) Lab Routine Vaginal discharge Ordered: 11/17/2024 [facility] Comment on above: Ordered: 11/17/2024 Comprehensive metabo lic 2000 panel - Serum or Plasma Comprehensive metabolic panel Lab Routine Annual wellness visit Ordered: 08/16/2024 [facility] Comment on above: Ordered: 08/16/2024 Cytology Cervical or vaginal smear or scraping study Pap Smear Pathology and Cytology Routine Well woman exam with routine gynecological exam Ordered: 11/17/2024 [facility] Comment on above: Ordered: 11/17/2024 Hemoglobin A1c/Hemoglobin.total in Blood Hemoglobin A1c Lab Routine Annual wellness visit Ordered: 08/16/2024 [facility] Comment on above: Ordered: 08/16/2024 Hemoglobin A1c/Hemoglobin.total in Blood Hemoglobin A1c Lab Routine Missed menses , unspecified gestational age Ordered: 09/10/2024 [facility] Comment on above: Ordered: 09/10/2024 Hepatitis B virus surface Ag [Presence] in Serum or Plasma by Immunoassay Hepatitis B surface antigen Lab Routine Missed menses , unspecified gestational age Ordered: 09/10/2024 [facility] Comment on above: Ordered: 09/10/2024 Hepatitis C virus Ab [Presence] in Serum or Plasma by Immunoassay Hepatitis C antibody Lab Routine Missed menses , unspecified gestational age Ordered: 09/10/2024 [facility] Comment on above: Ordered: 09/10/2024 HIV-1/HIV-2 antigen/antibody combination immunoassay HIV-1 and HIV-2 antibodies Lab Routine Missed menses , unspecified gestational age Ordered: 09/10/2024 [facility] Comment on above: Ordered: 09/10/2024 Human papilloma viru s DNA [Presence] in Unspecified specimen by Probe with amplification HPV DNA probe, amplified Microbiology Routine Well woman exam with routine gynecological exam Ordered: 11/17/2024 [facility] Comment on above: Ordered: 11/17/2024 Neisseria gonorrhoea e DNA [Presence] in Unspecified specimen by PREMA with probe detection Neisseria gonorrhea DNA probe, direct Lab Routine Vaginal discharge Ordered: 11/17/2024 [facility] Comment on above: Ordered: 11/17/2024 Reagin Ab [Presence] in Serum by RPR RPR Lab Routine Missed menses , unspecified gestational age Ordered: 09/10/2024 [facility] Comment on above: Ordered: 09/10/2024 Rubella antibody, IgG Rubella an tibody, IgG Lab Routine Missed menses , unspecified gestational age Ordered: 09/10/2024 [facility] Comment on above: Ordered: 09/10/2024 SURESWAB(R) ADVANCED VAGINITIS PLUS, TMA SURESWAB(R) ADVANCED VAGINITIS PLUS, TMA Pathology and Cytology Routine Exposure to STD Ordered: 11/17/2024 [facility] Work Phone: Comment on above: Ordered: 11/17/2024 Thyrotropin [Units/volume] in Serum or Plasma TSH Lab Routine Annual wellness visit Ordered: 08/16/2024 [facility] Work Phone: Comment on above: Ordered: 08/16/2024 Payers Date Payer Category Payer Unknown [id number] 2023 Medicaid (Managed Care) MEREDITH SHEN [id number] 2022 Private Health Insurance [id number] 1994 Unknown [id number] 2.16.840.1.481555.3.579.2. 593 1994 Unknown [id number] 2.16.840.1.232198.3.579.2. 593 1994 Unknown [id number] 2.16.840.1.032923.3.579.2. 593 1994 Unknown [id number] 2.16.840.1.143255.3.579.2. 593 1994 Unknown [id number] 2.16.840.1.076909.3.579.2. 593 1994 Unknown [id number] 2.16.840.1.720395.3.579.2. 593 1994 Unknown [id number] 2.16.840.1.234274.3.579.2. 593 1994 Unknown [id number] 2.16.840.1.197574.3.579.2. 593 1994 Unknown [id number] 2.16.840.1.228326.3.579.2. 593 1994 Unknown [id number] 2.16.840.1.619368.3.579.2. 593 1994 Unknown [id number] 2.16.840.1.008861.3.579.2. 593 1994 Unknown [id number] 2.16.840.1.170352.3.579.2. 9 1994 Unknown [id number] 2.16.840.1.859316.3.579.2. 9 1994 Unknown [id number] 2.16.840.1.888737.3.579.2. 9 1994 Unknown [id number] 2.16.840.1.602987.3.579.2. 9 1994 Unknown [id number] 2.16.840.1.903479.3.579.2. 1259 1959 Unknown [id number] 1959 Unknown [id number] 1959 Unknown [id number] Social History Date Type Detail Facility Tobacco smoking stat [facility] Tobacco smoking consumption unknown [facility] Start: 1994 Sex assigned at Female [facility] Start: 08-09-2024 Gender identity Identifies as female gender (finding) [facility] Start: 08-09-2024 Sexual orientation Heterosexual (fin ding) [facility] Start: 07-22-2024 [facility] Clinical Notes 11-19-2021 to 11-17-2024 ROME Adams - 11/17/2024 8:50 AM Fahad Macias RN - 11/09/2024 9:15 AM Primitivo Oh LPN - 11/03/2024 3:40 PM Primitivo Oh LPN - 10/06/2024 11:00 AM ROME Lassiter - 08/16/2024 8:50 AM EST Marci Date & Type Note Facility 11-17-2024 History of Presen t illness Narrative Reason for Appointment: Patient ID: Sidra Ortega is a 29 y.o. female who presents for Well Women Visit and Routine Visit Patient presents today for Return OB appointment. MEDICATIONS Current Outpatient Medications Medication Instructions cephalexin (KEFLEX) 500 mg, Oral, 3 times daily meclizine (ANTIVERT) 12.5 mg, Oral, 3 times daily PRN Vit-Fe Fumarate-FA ( VITAMINS PO) promethazine (PHENERGAN) 12.5 mg, Oral, Every 6 hours PRN, Take 1 tablet by mouth every 6 hours as needed for nausea. ALLERGIES No Known Allergies PROBLEMS Active Ambulatory Problems Diagnosis Date Noted Acute sinusitis 09/24/2024 Resolved Ambulatory Problems Diagnosis Date Noted No Resolved Ambulatory Problems No Additional Past Medical History HISTORY PAST MEDICAL HISTORY SOCIAL HISTORY History reviewed. No pertinent past medical history. Social History Tobacco Use Smoking status: Not on file Smokeless tobacco: Not on file Substance Use Topics Alcohol use: Not on file Drug use: Not on file FAMILY HISTORY No family history on file. SURGICAL HISTORY History reviewed. No pertinent surgical history. REVIEW OF SYSTEMS Review of Systems: Review of Systems All other systems reviewed and are negative. OBJECTIVE Objective: Physical Exam Constitutional: Appearance: Normal appearance. She is normal weight. Genitourinary: Right Adnexa: not tender and no mass present. Left Adnexa: not tender and no mass present. No cervical discharge. Breasts: Breasts are soft. Right: Normal. Left: Normal. HENT: Head: Normocephalic. Nose: Nose normal. Mouth/Throat: Mouth: Mucous membranes are moist. Cardiovascular: Rate and Rhythm: Normal rate and regular rhythm. Pulses: Normal pulses. Pulmonary: Effort: Pulmonary effort is normal. Breath sounds: Normal breath sounds. Abdominal: General: Bowel sounds are normal. Palpations: Abdomen is soft. Musculoskeletal: General: Normal range of motion. Cervical back: Normal range of motion. Neurological: General: No focal deficit present. Mental Status: She is alert and oriented to person, place, and time. Skin: General: Skin is warm and dry. Psychiatric: Mood and Affect: Mood normal. Behavior: Behavior normal. Thought Content: Thought content normal. Judgment: Judgment normal. Vitals and nursing note reviewed. Exam conducted with a binder stripper hand present. Vitals: Estimated body mass index is 27.73 kg/m as calculated from the following: Height as of 08/16/24: 5' 9 . Weight as of this encounter: 187 lb 12.8 oz. BP: 110/70 Patient's last menstrual period was 07/08/2024. ASSESSMENT & PLAN ICD-10-CM 1. Well woman exam with routine gynecological exam Z01.419 Pap Smear HPV DNA probe, amplified 2. 18 weeks gestation of Z3A.18 CANCELED: POCT urinalysis dipstick manually resulted 3. Exposure to STD Z20.2 SURESWAB(R) ADVANCED VAGINITIS PLUS, TMA 4. Vaginal discharge N89.8 CHLAMYDIA TRACHOMATIS (GENITO/STI) Neisseria gonorrhea DNA probe, direct 5. Second trimester Z34.92 CANCELED: POCT urinalysis dipstick manually resulted Return OB: Patient presents today for a routine obstetrics appointment. Patient is currently 18w6d . Patient states she is doing well but has complaints of being tired due to current . Patient has verbalizes frequent movement. labor precautions was discussed/given and patient was instructed to perform kick counts three times a day. Orders Placed This Encounter Procedures HPV DNA probe, amplified CHLAMYDIA TRACHOMATIS (GENITO/STI) Neisseria gonorrhea DNA probe, direct Follow Up: Patient is to return to office in 4 week for routine OB appointment. Patient with no complaints during today's physical examination. 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 documented in this encounter [facility] 11-03-2024 History of Presen t illness Narrative Reason for Appointment: Patient ID: Sidra Ortega is a 29 y.o. female who presents for Routine Visit Patient presents today for Return OB appointment. MEDICATIONS Current Outpatient Medications Medication Instructions azithromycin (Zithromax Z-Jamarcus) 250 MG tablet As directed loratadine (ALAVERT) 10 mg, Oral, Daily meclizine (ANTIVERT) 12.5 mg, Oral, 3 times daily PRN nitrofurantoin (macrocrystal-monohydrate) (MACROBID) 100 mg, Oral, 2 times daily Vit-Fe Fumarate-FA ( VITAMINS PO) promethazine (PHENERGAN) 12.5 mg, Oral, Every 6 hours PRN, Take 1 tablet by mouth every 6 hours as needed for nausea. ALLERGIES No Known Allergies PROBLEMS Active Ambulatory Problems Diagnosis Date Noted Acute sinusitis 09/24/2024 Resolved Ambulatory Problems Diagnosis Date Noted No Resolved Ambulatory Problems No Additional Past Medical History HISTORY PAST MEDICAL HISTORY SOCIAL HISTORY No past medical history on file. Social History Tobacco Use Smoking status: Not on file Smokeless tobacco: Not on file Substance Use Topics Alcohol use: Not on file Drug use: Not on file FAMILY HISTORY No family history on file. SURGICAL HISTORY No past surgical history on file. REVIEW OF SYSTEMS Review of Systems: Review of Systems Constitutional: Negative. HENT: Negative. Eyes: Negative. Respiratory: Negative. Cardiovascular: Negative. Gastrointestinal: Negative. Genitourinary: Negative. Musculoskeletal: Negative. Skin: Negative. Neurological: Negative. All other systems reviewed and are negative. Hematological: Negative. Endocrine: Negative. Allergic/Immunologic: Negative. OBJECTIVE Objective: Physical Exam Constitutional: Appearance: Normal appearance. She is well-developed. Cardiovascular: Rate and Rhythm: Normal rate and regular rhythm. Pulmonary: Effort: Pulmonary effort is normal. Breath sounds: Normal breath sounds. Abdominal: General: Bowel sounds are normal. There is no distension. Palpations: Abdomen is soft. Tenderness: There is no abdominal tenderness. There is no guarding or rebound. Musculoskeletal: General: No swelling. Normal range of motion. Right lower leg: No edema. Left lower leg: No edema. Neurological: Mental Status: She is alert and oriented to person, place, and time. Skin: General: Skin is warm and dry. Psychiatric: Mood and Affect: Mood normal. Behavior: Behavior normal. Vitals and nursing note reviewed. Exam conducted with a binder stripper hand present. Vitals: Estimated body mass index is 27.65 kg/m as calculated from the following: Height as of 08/16/24: 5' 9 . Weight as of this encounter: 187 lb 4 oz. BP: Patient's last menstrual period was 07/08/2024. ASSESSMENT & PLAN ICD-10-CM 1. Second trimester Z34.92 POCT urinalysis dipstick manually resulted 2. Hematuria, unspecified type R31.9 nitrofurantoin, macrocrystal-monohydrate, (Macrobid) 100 MG capsule Patient presents today for a routine obstetrics appointment. Patient is currently 16w6d with a Estimated Date of Delivery: 04/14/25. Pt given anatomy scan and msAFP order. Rx for flagyl and macrobid faxed to pharmacy. Pt to return in 4 weeks. Documented by Kaya Oh LPN on behalf of: Giulia Edouard DO documented in this encounter [facility] 10-06-2024 History of Presen t illness Narrative Reason for Appointment: Patient ID: Sidra Ortega is a 28 y.o. female who presents for No chief complaint on file. Patient presents today for Return OB appointment. MEDICATIONS Current Outpatient Medications Medication Instructions azithromycin (Zithromax Z-Jamarcus) 250 MG tablet As directed Vit-Fe Fumarate-FA ( VITAMINS PO) promethazine (PHENERGAN) 12.5 mg, Oral, Every 6 hours PRN, Take 1 tablet by mouth every 6 hours as needed for nausea. ALLERGIES No Known Allergies PROBLEMS Active Ambulatory Problems Diagnosis Date Noted Acute sinusitis 09/24/2024 Resolved Ambulatory Problems Diagnosis Date Noted No Resolved Ambulatory Problems No Additional Past Medical History HISTORY PAST MEDICAL HISTORY SOCIAL HISTORY No past medical history on file. Social History Tobacco Use Smoking status: Not on file Smokeless tobacco: Not on file Substance Use Topics Alcohol use: Not on file Drug use: Not on file FAMILY HISTORY No family history on file. SURGICAL HISTORY No past surgical history on file. REVIEW OF SYSTEMS Review of Systems: Review of Systems Constitutional: Negative. HENT: Negative. Eyes: Negative. Respiratory: Negative. Cardiovascular: Negative. Gastrointestinal: Negative. Genitourinary: Negative. Musculoskeletal: Negative. Skin: Negative. Neurological: Negative. All other systems reviewed and are negative. Hematological: Negative. Endocrine: Negative. Allergic/Immunologic: Negative. OBJECTIVE Objective: Physical Exam Constitutional: Appearance: Normal appearance. She is well-developed. Cardiovascular: Rate and Rhythm: Normal rate and regular rhythm. Pulmonary: Effort: Pulmonary effort is normal. Breath sounds: Normal breath sounds. Abdominal: General: Bowel sounds are normal. There is no distension. Palpations: Abdomen is soft. Tenderness: There is no abdominal tenderness. There is no guarding or rebound. Musculoskeletal: General: No swelling. Normal range of motion. Right lower leg: No edema. Left lower leg: No edema. Neurological: Mental Status: She is alert and oriented to person, place, and time. Skin: General: Skin is warm and dry. Psychiatric: Mood and Affect: Mood normal. Behavior: Behavior normal. Vitals and nursing note reviewed. Exam conducted with a binder stripper hand present. Vitals: Estimated body mass index is 27.32 kg/m as calculated from the following: Height as of 08/16/24: 5' 9 . Weight as of 09/10/24: 185 lb. BP: Patient's last menstrual period was 07/08/2024. ASSESSMENT & PLAN ICD-10-CM 1. 12 weeks gestation of Z3A.12 2. First trimester Z34.91 New OB: Patient presents today for 1st time obstetrics appointment with provider. Patient is currently 12w6d . Patients history has been reviewed in great detail including any potential risks. Patient stated she currently has no complaints. Expectations throughout regarding labs, ultrasounds, and appointments have been discussed with the patient in detail. It was reiterated that the patient is to drink 6-8 glasses of water a day, eat 6 small meals a day, do not consume raw or undercooked meat, and stay away from [facility]. Patient has been consulted regarding any further do's and don'ts of . Patient voiced understanding and all questions and concerns were answered. Pt has complaints of hip pain, pt advised to stretch and try and yoga ball. No orders of the defined types were placed in this encounter. Follow Up: Patient is to return in 4 weeks for routine OB appointment. Documented by Kaya Oh LPN on behalf of: Giulia Edouard DO documented in this encounter [facility] 09-10-2024 History of Presen t illness Narrative Reason for Appointment: Patient ID: Sidra Ortega is a 28 y.o. female who presents for Amenorrhea Patient presents today for a Nurse OB Intake appointment. Patient is 9w1d with a Estimated Date of Delivery: 04/14/25 OB History Para Term AB Living 4 1 2 SAB IAB Ectopic Multiple Live Births 1 2 # Outcome Date GA Lbr Dima/2nd Weight Sex Type Anes PTL Lv 4 Current 3 2 1 SAB Current Medications: has a current medication list which includes the following prescription(s): vit-fe fumarate-fa and promethazine. Medical History: Active Ambulatory Problems Diagnosis Date Noted No Active Ambulatory Problems Resolved Ambulatory Problems Diagnosis Date Noted No Resolved Ambulatory Problems No Additional Past Medical History No family history on file. Social History Tobacco Use Smoking status: Not on file Smokeless tobacco: Not on file Substance Use Topics Alcohol use: Not on file Drug use: Not on file History reviewed. No pertinent surgical history. No Known Allergies Vitals: Estimated body mass index is 27.32 kg/m as calculated from the following: Height as of 08/16/24: 5' 9 . Weight as of 08/16/24: 185 lb. BP: Patient's last menstrual period was 07/08/2024. Assessment/Plan Diagnoses and all orders for this visit: Missed menses - Type and screen; Future - ABO/Rh; Future - CBC and differential - Hemoglobin A1c - RPR - Rubella antibody, IgG - Hepatitis B surface antigen - Hepatitis C antibody - HIV-1 and HIV-2 antibodies - Urine culture - US OB transvaginal; Future - POCT , urine manually resulted - POCT urinalysis dipstick manually resulted , unspecified gestational age - Type and screen; Future - ABO/Rh; Future - CBC and differential - Hemoglobin A1c - RPR - Rubella antibody, IgG - Hepatitis B surface antigen - Hepatitis C antibody - HIV-1 and HIV-2 antibodies - Rapid drug screen, urine; Future Encounter for supervision of normal first in first trimester - Rapid drug screen, urine; Future 9 weeks gestation of Nurse Note: OB Intake: Patient presents today for first OB visit. Patients history has been reviewed in great detail including any potential risks. Patient signed consent forms and patient desires testing in both trimesters. Patient currently has no complaints and has been advised to drink 6-8 glasses of water a day, eat no raw or undercooked meat, and stay away from [facility]. Patient has also been advised to not change litter boxes and eat 6 small meals a day. Patient has been consulted regarding the do's and don'ts of . Patient was given labs and all questions and concerns were answered. Follow Up: Patient is to return in 4 weeks for routine OB appointment. Follow Up: Patient is to have labs drawn at directed and return to office for initial OB appointment with provider. Patient may call office as needed with any concerns or questions. Nurse Visit Completed by: Jaimee Beckman MA documented in this encounter [facility] 08-16-2024 History of Presen t illness Narrative [...] of: ROME Adams documented in this encounter [facility] 11-19-2021 Note PROCEDURE: XR WRIST LT MIN 3 V COMPARISON: None. HISTORY: Pain of left wrist FINDINGS: BONES:No fracture, acute abnormality, or significant arthropathy. SOFT TISSUES:Negative. No visible soft tissue swelling. EFFUSION:None visible. OTHER: Negative. IMPRESSION: No acute abnormality Electronically authenticated by: MARBIN MCKEON Date: 2021-11-19 13:16 [facility] Evaluation note Diagnosis Annual wellness visit- Primary documented in this encounter [facility] note* Diagnosis Missed menses , unspecified gestational age Encounter for supervision of normal first in first trimester 9 weeks gestation of documented in this encounter [facility]* Diagnosis 12 weeks gestation of First trimester state, incidental documented in this encounter [facility]* Diagnosis Second trimester state, incidental Hematuria, unspecified type Need for maternal serum alpha-protein (MSAFP) screening 16 weeks gestation of Screening, , for anatomic survey Encounter for anatomic survey Vaginal discharge during in second trimester documented in this encounter [facility]* Diagnosis Screening for lipoid disorders Screening for diabetes mellitus documented in this encounter [facility]* Diagnosis Well woman exam with routine gynecological exam Routine gynecological examination 18 weeks gestation of Exposure to STD Vaginal discharge Leukorrhea, not specified as infective Second trimester state, incidental documented in this encounter [facility] Summary Purpose Family History No Family History Records FoundNo Family History Records Found Advance Directives No Advanced Directives Records FoundNo Advanced Directives Records Found Additional Source Comments INFORMATION SOURCE (unrecogn ized section and content) DATE CREATED AUTHOR 10/24/2022 [facility] DATE CREATED AUTHOR AUTHOR'S ORGANIZ ATION 11/11/2024 [facility] [employer] Care Teams (unrecognized sec tion and content) Stamp Maker Relationship Specialty Start Date End Date Deanne Pierre MD [address] [facility] [place] [address] PCP - General Family Medicine 08/11/23 Stamp Maker Relationship Specialty Start Date End Date Deanne Pierre MD [address] [facility] [place] [address] PCP - General Family Medicine 08/11/23 Stamp Maker Relationship Specialty Start Date End Date Deanne Pierre MD [address] [facility] [place] [address] PCP - General Family Medicine 08/11/23 Stamp Maker Relationship Specialty Start Date End Date Deanne Pierre MD [address] [facility] [place] [address] PCP - General Family Medicine 08/11/23 Stamp Maker Relationship Specialty Start Date End Date Deanne Pierre MD [address] [facility] [place] [address] PCP - General Family Medicine 08/11/23 Stamp Maker Relationship Specialty Start Date End Date Deanne Pierre MD [address] [facility] [place] [address] PCP - General Family Medicine 08/11/23 Stamp Maker Relationship Specialty Start Date End Date Deanne Pierre MD [address] [facility] [place] [address] PCP - General Family Medicine 08/11/23 Stamp Maker Relationship Specialty Start Date End Date Deanne Pierre MD [address] [facility] [place] [address] PCP - General Family Medicine 08/11/23 Stamp Maker Relationship Specialty Start Date End Date Deanne Pierre MD [address] [place] [id number] PCP - General Family Medicine 08/11/23 Reason for Visit (unrecogniz ed section and content) Reason Comments Gynecologic Exam Reason Comments Amenorrhea Reason Comments Routine Visit Reason Comments Well Women Visit Routine Visit FOR RECORDS PERTAINING TO PATIENTS WHO ARE [...] BE BASED ON THE PRIMARY CLINICAL RECORDS. [email or web address] provides no warranty or guarantee of the accuracy or completeness of information in this document.
[2024-11-22 12:09] LABS: Age Gdln ACOG Testing Note (.); HPV Aptima Negative (Negative); IGP, Aptima HPV, rfx 16/18,45 Note (.)
== END 2024-11-17 14:23 | disposition home or self-care (01) ==
LOC: LAB 14:22
PROVIDERS: PCP Family Medicine; Visit Provider Physician Assistant
DX: Z01.419 Encounter for gynecological examination (general) (routine) without abnormal findings (principal)
CPT/HCPCS: 87624; 88175

== ENCOUNTER 2024-12-10 12:14 | Outpatient (OUT) | payer BC, OTHER, SELFPAY ==
--- OUTSIDE RECORDS SUMMARY | 2024-12-10 12:33 | XMS_ITS | CCD ---
Author Organization [facility] Care Team Providers Care Sheet Metal Apprentice Name Role Phone JAVAN, DR PLATT Attending Unavailable JAVAN, DR PLATT Admitting Unavailable JAVAN, DR PLATT Consulting Unavailable REQUEST, NONE LISTED Primary Care Unavaila ble JAVAN, DR PLATT Admitting Unavailable HOY, DR ALICEA Primary Care Unavailable WEST, DR MARBIN Meyer Consulting Unavailable JAVAN, DR PLATT Attending Unavailable JAVAN, DR PLATT Consulting Unavailable JAVAN, DR PLATT Attending Unavailable JAVAN, DR PLATT Admitting Unavailable REQUEST, NONE LISTED Primary Care Unavaila ble LINDA, DR MARBIN Meyer Consulting Unavailable JAVAN, DR PLATT Consulting Unavailable JAVAN, DR PLATT Attending Unavailable JAVAN, DR PLATT Admitting Unavailable REQUEST, DR CAMPOS LISTED Primary Care Unavaila ble JAVAN, DR PLATT Admitting Unavailable JAVAN, DR PLATT Consulting Unavailable HOY, DR ALICEA Primary Care Unavailable JAVAN, DR PLATT Attending Unavailable HOY, DR ALICEA Consulting Unavailable LEMUEL, DR ALICEA Attending Unavailable LEMUEL, DR ALICEA Admitting Unavailable LEMUEL, DR ALICEA Primary Care Unavailable JAVAN, DR PLATT Admitting Unavailable JAVAN, DR PLATT Consulting Unavailable HOY, DR ALICEA Primary Care Unavailable JAVAN, DR PLATT Attending Unavailable ZIEBER, DR JAYSHREE Antoine Consulting Unavailable JAVAN, DR PLATT Attending Unavailable JAVAN, DR PLATT Admitting Unavailable JAVAN, DR PLATT Consulting Unavailable REQUEST, DR CAMPOS LISTED Primary Care Unavaila ble JAVAN, DR PLATT Attending Unavailable JAVAN, DR PLATT Admitting Unavailable JAVAN, DR PLATT Consulting Unavailable REQUEST, NONE LISTED Primary Care Unavaila ble ELIANE, DR JAYSHREE Antoine Consulting Unavailable JAVAN, DR PLATT Consulting Unavailable HOY, DR ALICEA Primary Care Unavailable DR GIULIA EDOUARD Attending Unavailable JAVAN, DR PLATT Admitting Unavailable JAYSHREE WHIPPLE Consulting Unavailable DR GIULIA EDOUARD Procedure Practitioner Unavailab NICHOLAS Mendoza Consulting Unavailable NICHOLAS KEYS Attending Unavailable NICHOLAS KEYS Admitting Unavailable DR DEANNE PIERRE Primary Care Unavailable Deanne Pierre MD Primary Care Provider [phone] GIULIA EDOUARD Attending Unavailable MARGRET HORTON Attending Unavailable MARGRET HORTON Attending Unavailable MARGRET HORTON Attending Unavailable GIULIA [...] (Therapy completed) cephalexin 500 mg oral capsule (5 sources) Cephalosporin Antibacterial Start: 11-15-2024 End: 11-22-2024 [...] Discontinued meclizine hydrochloride 12.5 mg oral tablet (8 sources) Antiemetic Start: 10-14-2024 take 1 tablet [...] 11/17/2024 Discontinued Vit-Fe Fumarate-FA ( VITAMINS PO) (16 sources) Start: 06-22-2024 Vit-Fe Fumarate-FA ( VITAMINS PO) 06/22/2024 Active promethazine hydrochloride 12.5 mg oral tablet (13 sources) Phenothiazine Start: 08-24-2024 take 1 tablet [...] oral tablet (2 sources) Progestin, Estrogen Start: End: 4 desogestrel-ethinyl estradiol (Apri) 0.15-30 MG-MCG tablet Indications: Uses control Take 1 tablet by mouth Daily 28 tablet 12 04/21/2024 08/10/2024 Discontinued (Therapy completed) etodolac 200 mg oral capsule (2 sources) Nonsteroidal Anti-inflammatory Drug Start: End: 4 take 1 capsule by mouth every six hours etodolac (Lodine) 200 MG capsule Indications: Inflammation around joint TAKE 1 CAPSULE BY MOUTH EVERY 6 HOURS IF NEEDED (INFLAMATION) 120 capsule 08/02/2024 08/10/2024 Discontinued (Therapy completed) fluconazole 150 mg oral tablet (2 sources) Azole Antifungal Start: End: fluconazole (Diflucan) 150 MG tablet Indications: Yeast infection 1 tablet PO day one; then 72 hours later take 2nd pill PO 2 tablet 1 10/22/2023 08/10/2024 Discontinued (Therapy completed) ibuprofen 800 mg oral tablet (2 sources) Nonsteroidal Anti-inflammatory Drug Start: End: take 1 tablet by mouth every eight hours as needed for pain and headache and headache ibuprofen 800 MG tablet Indications: Nonintractable episodic headache, unspecified headache type Take 1 tablet (800 mg) by mouth every 8 (eight) hours if needed for mild pain for up to 30 doses 30 tablet 02/13/2024 08/10/2024 Discontinued (Therapy completed) methylPREDNISolone (2 sources) Corticosteroid Start: End: 4 methylPREDNISolone (Medrol Dospak) 4 MG [...] Onset: 10-17-2022 Chronic Other upper respiratory infections (12 sources) Acute sinusitis; Translations: [Acute sinusitis, unspecified] [...] Test Name Value Interpretation Reference Range Facility US OB 14+ WEEKS ANATOMY SCAN on 11-29-2024 US OB 14+ WEEKS ANATOMY SCAN EXAM: US OB 14+ WEEKS ANATOMY SCAN HISTORY: anatomy. TECHNIQUE: Two-dimensional transabdominal grayscale ultrasound imaging of the pelvis was performed. FINDINGS: Gestation: Single Presentation: Cephalic Cardiac Activity: 144 beats per minute Placental Location: Posterior with no sonographic abnormalities identified. Distance from Placental Tip to Cervix: 3.7 cm Cervical Length: 5.0 cm Amniotic Fluid: Appears adequate MEASUREMENTS: BPD: 4.8 cm EGA: 20 weeks 3 days HC: 18.2 cm EGA: 20 weeks 4 days AC: 16.4 cm EGA: 21 weeks 3 days FL: 3.6 cm EGA: 21 weeks 3 days HC/AC Ratio: 1.11 The gestational age by today's ultrasound is 21 weeks 0 days (+/- 10 days gestation). Estimated Weight: 416 grams, +/- 62 grams ( 0 lb 15 oz). Weight Percentile for gestational age: 84 % ANATOMY C-Spine: Unremarkable T-Spine: Unremarkable L-Spine: Unremarkable Sacrum: Unremarkable Four Chamber Heart: Unremarkable LVOT: Unremarkable RVOT: Unremarkable Stomach: Unremarkable Kidneys: Unremarkable Bladder: Unremarkable Diaphragm: Unremarkable Cord insertion: Unremarkable Cord vessels: Three Lateral Ventricles: Unremarkable Cerebellum: Unremarkable Cisterna Magna: Unremarkable Posterior Fossa: Unremarkable Right Femur: Unremarkable Left Femur: Unremarkable Right Tib/Fib: Unremarkable Left Tib/Fib: Unremarkable Right Rad/Ulnar: Unremarkable Left Rad/Ulnar: Unremarkable Right Humerus: Unremarkable Left Humerus: Unremarkable Nose/Lips: Unremarkable Orbits: Unremarkable IMPRESSION: 1. Single, live intrauterine gestation 20 weeks, 4 days by LMP. Today's ultrasound measurements correlate with a gestational age of 21 weeks 0 days. Estimated weight is 416 grams, +/- 62 grams ( 0 lb 15 oz) which correlates to 84 %. ANGELA is 04/11/2025. 2. Unremarkable ultrasound of the anatomy. Electronically Signed:Electronically signed by LEANDRA LUU II, MD, PHD at 01-Dec-2024 08:36:07 AM [facility] Normal Not Available Comment on above: Order Comment: US OB ANATOMY SINGLE W US OB CERVICAL LENGTH Estimated Date of Delivery: 04/14/25 Gestational Age as of 11/03/2024: 16w6d IGP,APTIMA HPV,AGE GDLNon AGE GDLN ACOG TESTING Note . [facility] Comment on above: TESTS RESULT FLAG UN ITS REF RANGE LAB Clinician Provided Cytology Information Source.............Cervix Other.............. No. of containers..01 ThinPrep Vial Age Algo ACOG Sunita... 01 FLAG LEGEND: L-Low Normal,H-High Normal,LL-Alert Low,HH-Alert High <-Panic Low,>-Panic High,A-Abnormal,AA-Critical Abnormal Performed at: 01 =G [address] [place] [address] Senait Shook MD, HPV APTIMA Negative Negative [facility] Comment on above: This nucleic acid am plification test detects fourteen high- risk HPV types (16,18,31,33,35,39,45,51,52,56,58,59,66,68) without differentiation. Performed at: = - [address] [id number] Automotive Quality Manager: Senait Shook MD, Phone: [phone] Performed at: - [address] [id number] Automotive Quality Manager: Senait Shook MD, Phone: [phone] IGP, APTIMA HPV, RFX 16/18,45 Note . [facility] Comment on above: TESTS RESULT FLAG UN ITS REF RANGE LAB DIAGNOSIS: 02 NEGATIVE FOR INTRAEPITHELIAL LESION OR MALIGNANCY. THIS SPECIMEN WAS RESCREENED PART OF OUR REGISTER REPAIRER PROGRAM. Specimen adequacy: 02 Satisfactory for evaluation. No endocervical component is identified. An endocervical component is not commonly seen in the patient. Performed by: 02 Graciela Sorenson Behavioral Therapist QC reviewed by: 02 Sly Leung Behavioral Therapist ([facility]) . 02 Note: Note 02 The Pap smear is a screening test designed to aid in the detection of premalignant and malignant conditions of the uterine cervix. It is not a diagnostic procedure and should not be used as the sole means of detecting cervical cancer. Both false-positive and false-negative reports do occur. Test Methodology: Note 02 This liquid based ThinPrep(R) pap test was screened with the use of an image guided system. HPV Genotype Reflex Note 02 Criteria not met, HPV Genotype not performed. FLAG LEGEND: L-Low Normal,H-High Normal,LL-Alert Low,HH-Alert High <-Panic Low,>-Panic High,A-Abnormal,AA-Critical Abnormal Performed at: [address] [address] Senait Shook MD, SPATULA-ALONE [facility] No Panel Informationon 02-25 -2025 STAPHYLOCOCCUS EPIDERMIDIS, HAEMOLYTICUS, LUGDUNENSIS, SAPROPHYTICUS (URINA 0 [facility] STAPHYLOCOCCUS EPIDERMIDIS, HAEMOLYTICUS, LUGDUNENSIS, SAPROPHYTICUS (URINA Not detected [facility] URINARY TRACT INFECTION (HTR X)on 11-16-2024 ACINETOBACTER BAUMANII 0 [facility] ACINETOBACTER BAUMANII Not detected [facility] JAKE ALBICANS, PARAPSILOSIS, TROPICALIS 0 [facility] JAKE ALBICANS, PARAPSILOSIS, TROPICALIS Not detected [facility] JAKE GLABRATA 0 [facility] JAKE GLABRATA Not detected [facility]I [facility]I Not [facility] CITROBACTER FREUNDII 0 [facility] CITROBACTER FREUNDII Not detected [facility] ENTEROBACTER AEROGENES, CLOACAE 0 [facility] Healthks re ENTEROBACTER AEROGENES, CLOACAE Not detected [facility] re ENTEROCOCCUS FAECALIS, FAECIUM 0 [facility] Healthcar e ENTEROCOCCUS FAECALIS, FAECIUM Not detected [facility] Healthcar e ESCHERICHIA COLI 0 [facility] ESCHERICHIA COLI Not detected [facility] H ealtare KLEBSIELLA PNEUMONIAE, OXYTOCA 0 [facility] are KLEBSIELLA PNEUMONIAE, OXYTOCA Not detected [facility] are MORGANELLA MORGANII 0 [facility] MORGANELLA MORGANII Not detected [facility] PROTEUS MIRABILIS, VULGARIS 0 [facility] PROTEUS MIRABILIS, VULGARIS Not detected [facility] PSEUDOMONAS AERUGINOSA 0 [facility] PSEUDOMONAS AERUGINOSA Not detected [facility] SERRATIA MARCESCENS 0 [facility] SERRATIA MARCESCENS Not detected [facility] STAPHYLOCOCCUS AUREUS 0 [facility] STAPHYLOCOCCUS AUREUS Not detected [facility] STREPTOCOCCUS AGALACTIAE (GROUP B STREP) 0 [facility] STREPTOCOCCUS AGALACTIAE (GROUP B STREP) Not detected [facility] STREPTOCOCCUS PYOGENES (GROUP A STREP) 0 [facility] STREPTOCOCCUS PYOGENES (GROUP A STREP) Not detected [facility] Healthcar e CARDIOCHECK - LIPID AND GLUC OSEon 11-09-2024 Cholesterol [Mass/Vol] 209 mg/dL NINF - 200 [facility] Cholesterol in HDL [Mass/Vol] 64 mg/dL M: 35-65 F: 35-80 [facility] Cholesterol in LDL [Mass/Vol] 108 mg/dL NINF - 100 [facility] Glucose [Mass/Vol] 98 mg/dL NINF - 100 [facility] H ealthcare Interpretation and review of laboratory results Abnormal [facility] re Triglyceride [Mass/Vol] 185 mg/dL NINF - 150 [facility] Urinalysis macro (dipstick) panel (U)on 11-03-2024 Bilirubin, UA Few Negative - 4(70) +++ mg/dL [facility] Blood, UA Positive Negative - 50 Som/mcL [facility] Healthcare Color, UA Marichuy [facility] Healthcar e Glucose, UA Negative Negative - 1999(110) ++++ mg/dL [facility] Interpretation and review of laboratory results Abnormal [facility] Healthca re Ketones, UA Negative Negative - 160(16) ++++ mg/dL [facility] Leukocytes, UA Negative Negative - 500+++ Eric/mcL [facility] Nitrite, UA Negative Negative - Positive [facility] pH, UA 5.5 5 - 9 [facility] Healthcar e Protein, UA Positive Negative - 1999(20) ++++ mg/dL [facility] Spec Grav, UA 1.03 1 - 1.03 [facility] Urobilinogen, UA 1.0 0.2 - 12 mg/dL [facility] Urinalysis macro (dipstick) panel (U)on 10-06-2024 Bilirubin, UA Negative Negative - 4(70) +++ mg/dL [facility] Blood, UA Negative Negative - 50 Som/mcL [facility] Healthcare Clarity, UA Clear [facility] re Color, UA Yellow [facility] Glucose, UA Negative Negative - 1999(110) ++++ mg/dL [facility] Interpretation and review of laboratory results [facility] Ketones, UA Negative Negative - 160(16) ++++ mg/dL [facility] Leukocytes, UA Negative Negative - 500+++ Eric/mcL [facility] Healthcare Nitrite, UA Negative Negative - Positive [facility] pH, UA 5.5 5 - 9 [facility] Healthcar e Protein, UA Negative Negative - 1999(20) ++++ mg/dL [facility] Spec Grav, UA 1.03 1 - 1.03 [facility] Urobilinogen, UA 1.0 0.2 - 12 mg/dL [facility] BOX TESTon 10-01-2024 BOX TEST SENT OUT ANNIE [facility] BOX1 [facility] Healthcar e BOX2 10/01/2024 [facility] [employer] [facility] [email or web address] e HCG ( test) Ql (U)o n 09-10-2024 Interpretation and review of laboratory results Abnormal [facility] [employer] re Preg Test, Ur Positive Negative [facility] Healthcar e Urinalysis macro (dipstick) panel (U)on 09-10-2024 Bilirubin, UA Negative Negative - 4(70) +++ mg/dL [facility] Blood, UA Positive Negative - 50 Som/mcL [facility] Comment on above: small Clarity, UA Clear [facility] [employer] re Color, UA Yellow [facility] e Glucose, UA Negative Negative - 1999(110) ++++ mg/dL [facility] Interpretation and review of laboratory results Abnormal [facility] [employer] re Ketones, UA Negative Negative - 160(16) ++++ mg/dL [facility] Leukocytes, UA Trace Negative - 500+++ Eric/mcL [facility] Nitrite, UA Negative Negative - Positive [facility] pH, UA 5.5 5 - 9 [facility] Protein, UA Negative Negative - 1999(20) ++++ mg/dL [facility] Spec Grav, UA 1.025 1 - 1.03 [facility] Urobilinogen, UA 0.2 0.2 - 12 mg/dL [facility] Healthcar e Cytology Cervical or vaginal smear or scraping studyOrdered By: Jaimee Beckman on 08-11-2023 [facility] [employer] CBC AUTO DIFFon 10-21-2022 BASO # 0.0 103/ul Normal 0.0-0.1 [facility] Comment on above: Performed By: #### C BC #### [facility] [address] [address] [address] Diann Dickerson Basophils/100 WBC (Bld) 0.4 % Normal 0.2-2.0 [facility] Comment on above: Performed By: #### C BC #### [facility] [address] [place], [place] [address] Dr. Diann Dickerson EO # 0.0 103/ul Normal 0.0-0.7 [facility] Comment on above: Performed By: #### C BC #### [facility] [address] [place] [address] Dr. Diann Dickerson Eosinophils/100 WBC (Bld) 0.8 % Critically low 0.9-7.0 [facility] Comment on above: Performed By: #### C BC #### [facility] [address] [place] [address] Dr. Diann Dickerson Erythrocyte distribution width (RBC) [Ratio] 11.0 % Normal 11.0-15.0 [facility] Comment on above: Performed By: #### C BC #### [facility] [address] [place] [address] Dr. Diann Dickerson Hematocrit (Bld) [Volume fraction] 38.0 % Normal 36.0-48.0 [facility] Comment on above: Performed By: #### C BC #### [facility] [address] [place] [address] Dr. Diann Dickerson Hemoglobin (Bld) [Mass/Vol] 13.6 g/dL Normal 12.0-16.0 [facility] Comment on above: Performed By: #### C BC #### [facility] [address] [place] [address] Dr. Diann Dickerson IG # 0.02 10e3/ul Normal 0.00-0.03 [facility] Comment on above: Performed By: #### C BC #### [facility] [address] [place] [address] Dr. Diann Dickerson IG % 0.4 % Normal 0.0-0.5 [facility] Comment on above: Performed By: #### C BC #### [facility] [address] [place] [address] Dr. Diann Dickerson LYMPH # 2.0 103/ul Normal 1.2-3.8 [facility] Comment on above: Performed By: #### C BC #### [facility] [address] [place] [address] Dr. Diann Dickerson Lymphocytes/100 WBC (Bld) 38.2 % Normal 20.5-60.0 [facility] Comment on above: Performed By: #### C BC #### [facility] [address] [place] [address] Dr. Diann Dickerson MANUAL DIFF REQ NO Normal [facility] Comment on above: Performed By: #### C BC #### [facility] [address] [place] [address] Dr. Diann Dickerson MCH (RBC) [Entitic mass] 31.6 pg Normal 26.7-34.0 [facility] Comment on above: Performed By: #### C BC #### [facility] [address] [place] [address] Dr. Diann Dickerson MCHC (RBC) [Mass/Vol] 35.8 g/dL Critically high 29.9-35.2 [facility] Comment on above: Performed By: #### C BC #### [facility] [address] [place] [address] Dr. Diann Dickerson MCV (RBC) [Entitic vol] 88.2 fL Normal 81.0-99.0 [facility] Comment on above: Performed By: #### C BC #### [facility] [address] [place] [address] Dr. Diann Dickerson MONO # 0.4 103/ul Normal 0.3-0.8 [facility] Comment on above: Performed By: #### C BC #### [facility] [address] [place] [address] Dr. Diann Dickerson Monocytes/100 WBC (Bld) 7.7 % Normal 1.7-12.0 [facility] Comment on above: Performed By: #### C BC #### [facility] [address] [place] [address] Dr. Diann Dickerson NEUT # 2.7 103/ul Normal 1.4-6.5 [facility] Comment on above: Performed By: #### C BC #### [facility] [address] [place] [address] Dr. Diann Dickerson Neutrophils/100 WBC (Bld) 52.5 % Normal 43.0-75.0 [facility] Comment on above: Performed By: #### C BC #### [facility] [address] [place] [address] Dr. Diann Dickerson Platelet mean volume (Bld) [Entitic vol] 10.3 fL Normal 9.5-13.5 [facility] Comment on above: Performed By: #### C BC #### [facility] [address] [place] [address] Dr. Diann Dickerson PLT 251 103/ul Normal 150-450 [facility] Comment on above: Performed By: #### C BC #### [facility] [address] [place] [address] Dr. Diann Dickerson RBC 4.31 106/ul Normal 4.20-5.40 [facility] Comment on above: Performed By: #### C BC #### [facility] [address] [place] [address] Dr. Diann Dickerson WBC 5.2 103/ul Normal 4.0-11.0 [facility] Comment on above: Performed By: #### C BC #### [facility] [address] [place] [address] Dr. Diann Dickerson ER URINE PROFILEon 3 Bilirubin Ql (U) Negative Normal NEGATIVE [facility] Comment on above: Performed By: #### P REGU, ERUR #### [facility] [address] [place] [address] Dr. Diann Dickerson Clarity (U) CLEAR Normal CLEAR [facility] Comment on above: Performed By: #### P REGU, ERUR #### [facility] [address] [place] [address] Dr. Diann Dickerson Color (U) YELLOW Normal YELLOW [facility] Comment on above: Performed By: #### P REGU, ERUR #### [facility] [address] [place] [address] Dr. Diann MCCALLUM A micrscopic examination will be performed if indicated. Normal [facility] Comment on above: Performed By: #### P REGU, ERUR #### [facility] [address] [place] [address] Dr. Diann Dickerson Glucose Ql (U) Negative Normal NEGATIVE [facility] Comment on above: Performed By: #### P REGU, ERUR #### [facility] [address] [place] [address] Dr. Diann Dickerson Hemoglobin Ql (U) Negative Normal NEGATIVE [facility] Comment on above: Performed By: #### P REGU, ERUR #### [facility] [address] [place] [address] Dr. Diann Dickerson Ketones Ql (U) Negative Normal NEGATIVE [facility] Comment on above: Performed By: #### P REGU, ERUR #### [facility] [address] [place] [address] Dr. Diann Dickerson LEUKOCYTES Negative Normal NEGATIVE [facility] Comment on above: Performed By: #### P REGU, ERUR #### [facility] [address] [place] [address] Dr. Diann Dickerson Nitrite Ql (U) Negative Normal NEGATIVE [facility] Comment on above: Performed By: #### P REGU, ERUR #### [facility] [address] [place] [address] Dr. Diann Dickerson pH (U) 6.0 [pH] Normal 5-9 [facility] Comment on above: Performed By: #### P REGU, ERUR #### [facility] [address] [place] [address] Dr. Diann Dickerson SPEC GRAVITY 1.015 Normal 1.005-<=1.025 [facility] Comment on above: Performed By: #### P REGU, ERUR #### [facility] [address] [place] [address] Dr. Diann Dickerson UA PROTEIN Negative Normal NEGATIVE/ TRACE [facility] Comment on above: Performed By: #### P REGU, ERUR #### [facility] [address] [place] [address] Dr. Diann Dickerson UR MICRO IND NOT INDICATED Normal [facility] Comment on above: Performed By: #### P REGU, ERUR #### [facility] [address] [place] [address] Dr. Diann Dickerson Urobilinogen Qn (U) 1.0 {Guy'U}/dL Normal 0.2 - 1. 0 [facility] Comment on above: Performed By: #### P JONATHAN, ERUR #### [facility] [address] [place] [address] Dr. Diann Dickerson GROUP A STREP CULTUREon 09-24 S. pyogenes Ag Ql (Unsp spec) Culture Observations: NEGATIVE FOR GROUP A STREPTOCOCCUS. Normal [facility] Comment on above: Performed By: #### G RASTCX, SSCRN #### [facility] [address] [place] [address] Dr. Diann Dickerson URon 10-21-2022 , QUAL Negative Normal NEGATIVE [facility] Comment on above: Performed By: #### P JONATHAN, ERUR #### [facility] [facility] [address] [place] [address] Dr. Diann Dickerson PROF CHEM 8 (BAS METB)on Anion gap [Moles/Vol] 12.1 mmol/L [facility] Comment on above: Performed By: #### C BC #### [facility] [address] [place] [address] Dr. Diann Dickerson Calcium [Mass/Vol] 9.3 mg/dL Normal 8.5-10.[address] [facility] Comment on above: Performed By: #### C BC #### [facility] [address] [place] [address] Dr. Dainn Dickerson Chloride [Moles/Vol] 101 mmol/L Normal 98-107 [facility] Comment on above: Performed By: #### C BC #### [facility] [address] [place] [address] Dr. Diann Dickerson CO2 [Moles/Vol] 28.3 mmol/L Normal 21.0-32.0 [facility] Comment on above: Performed By: #### C BC #### [facility] [address] [place] [address] Dr. Diann Dickerson Creatinine [Mass/Vol] 0.61 mg/dL Normal 0.55-1.02 [facility] Comment on above: Performed By: #### C BC #### [facility] [address] [address] [address] Diann Dickerson EGFR-AF GUINEAN >60 Normal >=60 [facility] Comment on above: Performed By: #### C BC #### [facility] [address] [address] [address] Diann Dickerson EGFR-NON AF GUINEAN >60 Normal >=60 [facility] Comment on above: Performed By: #### C BC #### [facility] [address] [address] [address] Diann Dickerson Glucose [Mass/Vol] 122 mg/dL Critically high 74-106 [facility] Comment on above: Performed By: #### C BC #### [facility] [address] [place] [address] Dr. Diann Dickerson Potassium [Moles/Vol] 3.4 mmol/L Critically low 3.5-5.1 [facility] Comment on above: Performed By: #### C BC #### [facility] [address] [place] [address] Dr. Diann Dickerson Sodium [Moles/Vol] 138 mmol/L Normal 136-[address] [facility] Comment on above: Performed By: #### C BC #### [facility] [address] [place] [address] Dr. Diann Dickerson Urea nitrogen [Mass/Vol] 5.0 mg/dL Critically low 7.0-18.0 [facility] Comment on above: Performed By: #### C BC #### [facility] [address] [place] [address] Dr. Diann Dickerson Urea nitrogen/Creatinine [Mass ratio] 8.2 mg/mg Normal [facility] Comment on above: Performed By: #### C BC #### [facility] [address] [place] [address] Dr. Diann Dickerson STREPT SCREENon 10-21-2022 STREP SCREEN A Negative Normal NEGATIVE [facility] Comment on above: Performed By: #### G RASTCX, SSCRN #### [facility] [address] [place] [address] Dr. Diann Dickerson Covid-19 PCR (CVDTB)on 09-23 SARS-CoV-2 (COVID-19) RNA PREMA+probe Ql (Unsp spec) Not detected Normal NOT DETECTED [facility] Comment on above: Result Comment: This test is not yet approved or cleared by the [place] FDA. When there are no FDA-approved or cleared tests available, and other criteria are met, FDA can make tests available under an emergency access mechanism called an Emergency Use Authorization (EUA). The EUA for this test is supported by the [place] of Health and Human Service's (HHS's) declaration [...] SARS-CoV-2. Performed By: #### C VDTBH #### [facility] [address] [place] [address] Dr. Diann Dickerson INFLUENZA A AND B AGon 10-[facility] Comment on above: Result Comment: Nega tive for Flu A protein angiten. Infection due to Flu A cannot be ruled out. Flu A angiten in the sample may be below the detection limit of the test. Performed By: #### U ACSIND #### [facility] [address] [address] [address] Diann Dickerson INFLUBNEG SEE BELOW Normal [facility] Comment on above: Result Comment: Nega tive for Flu B protein antigen. Infection due to Flu B cannot be ruled out. Flu B antigen in the sample may be below the detection limit of the test. Performed By: #### U ACSIND #### [facility] [address] [address] [address] Diann Dickerson INFLUENZA A AG Negative Normal NEGATIVE SEE COMMENT [facility] Comment on above: Performed By: #### U ACSIND #### [facility] [address] [address] [address] Diann Dickerson INFLUENZA B AG Negative Normal NEGATIVE SEE COMMENT [facility] Comment on above: Performed By: #### U ACSIND #### [facility] [address] [address] [address] Diann Dickerson CBC AUTO DIFFon 04-02-2022 BASO # 0.0 103/ul Normal 0.0-0.1 [facility] Comment on above: Performed By: #### C VDTBH #### [facility] [address] [place] [address] Dr. Diann Dickerson Basophils/100 WBC (Bld) 0.4 % Normal 0.2-2.0 [facility] Comment on above: Performed By: #### C VDTBH #### [facility] [address] [place] [address] Dr. Diann Dickerson EO # 0.1 103/ul Normal 0.0-0.7 [facility] Comment on above: Performed By: #### C VDTBH #### [facility] [address] [place] [address] Dr. Diann Dickerson Eosinophils/100 WBC (Bld) 0.6 % Critically low 0.9-7.0 [facility] Comment on above: Performed By: #### C VDTBH #### [facility] [address] [place] [address] Dr. Diann Dickerson Erythrocyte distribution width (RBC) [Ratio] 12.3 % Normal 11.0-15.0 [facility] Comment on above: Performed By: #### C VDTBH #### [facility] [address] [place] [address] Dr. Diann Dickerson Hematocrit (Bld) [Volume fraction] 35.5 % Critically low 36.0-48.0 [facility] Comment on above: Performed By: #### C VDTBH #### [facility] [address] [place] [address] Dr. Diann Dickerson Hemoglobin (Bld) [Mass/Vol] 12.3 g/dL Normal 12.0-16.0 [facility] Comment on above: Performed By: #### C VDTBH #### [facility] [address] [place] [address] Dr. Diann Dickerson IG # 0.07 10e3/ul Critically high 0.00-0.03 [facility] Comment on above: Performed By: #### C VDTBH #### [facility] [address] [place] [address] Dr. Diann Dickerson IG % 0.7 % Critically high 0.0-0.5 [facility] Comment on above: Performed By: #### C VDTBH #### [facility] [address] [place] [address] Dr. Diann Dickerson LYMPH # 1.3 103/ul Normal 1.2-3.8 [facility] Comment on above: Performed By: #### C VDTBH #### [facility] [address] [place] [address] Dr. Diann Dickerson Lymphocytes/100 WBC (Bld) 13.9 % Critically low 20.5-60.0 [facility] Comment on above: Performed By: #### C VDTBH #### [facility] [address] [place] [address] Dr. Diann Dickerson MANUAL DIFF REQ NO Normal [facility] Comment on above: Performed By: #### C VDTBH #### [facility] [address] [place] [address] Dr. Diann Dickerson MCH (RBC) [Entitic mass] 34.1 pg Critically high 26.7-34.0 [facility] Comment on above: Performed By: #### C VDTBH #### [facility] [address] [place] [address] Dr. Diann Dickerson MCHC (RBC) [Mass/Vol] 34.6 g/dL Normal 29.9-35.2 [facility] Comment on above: Performed By: #### C VDTBH #### [facility] [address] [place] [address] Dr. Diann Dickerson MCV (RBC) [Entitic vol] 98.3 fL Normal 81.0-99.0 [facility] Comment on above: Performed By: #### C VDTB #### [facility] [address] [place] [address] Dr. Diann Dickerson MONO # 1.0 103/ul Critically high 0.3-0.8 [facility] Comment on above: Performed By: #### C VDTBH #### [facility] [address] [place] [address] Dr. Diann Dickerson Monocytes/100 WBC (Bld) 10.5 % Normal 1.7-12.0 [facility] Comment on above: Performed By: #### C VDTBH #### [facility] [address] [place] [address] Dr. Diann Dickerson NEUT # 6.9 103/ul Critically high 1.4-6.5 [facility] Comment on above: Performed By: #### C VDTB #### [facility] [address] [place] [address] Dr. Diann Dickerson Neutrophils/100 WBC (Bld) 73.9 % Normal 43.0-75.0 [facility] Comment on above: Performed By: #### C VDTB #### [facility] [address] [place] [address] Dr. Diann Dickerson Platelet mean volume (Bld) [Entitic vol] 10.8 fL Normal 9.5-13.5 [facility] Comment on above: Performed By: #### C VDTBH #### [facility] [address] [place] [address] Dr. Diann Dickerson PLT 177 103/ul Normal 150-450 [facility] Comment on above: Performed By: #### C VDTBH #### [facility] [address] [place] [address] Dr. Diann Dickerson RBC 3.61 106/ul Critically low 4.20-5.40 [facility] Comment on above: Performed By: #### C VDTBH #### [facility] [address] [place] [address] Dr. Diann Dickerson WBC 9.4 103/ul Normal 4.0-11.0 [facility] Comment on above: Performed By: #### C VDTB #### [facility] [address] [place] [address] Dr. Diann Dickerson CBC AUTO DIFFon 04-01-2022 BASO # 0.0 103/ul Normal 0.0-0.1 [facility] Comment on above: Performed By: #### C BC #### [facility] [address] [place] [address] Dr. Diann Dickerson Basophils/100 WBC (Bld) 0.3 % Normal 0.2-2.0 [facility] Comment on above: Performed By: #### C BC #### [facility] [address] [place] [address] Dr. Diann Dickerson EO # 0.1 103/ul Normal 0.0-0.7 [facility] Comment on above: Performed By: #### C BC #### [facility] [address] [place] [address] Dr. Diann Dickerson Eosinophils/100 WBC (Bld) 0.6 % Critically low 0.9-7.0 [facility] Comment on above: Performed By: #### C BC #### [facility] [address] [place] [address] Dr. Diann Dickerson Erythrocyte distribution width (RBC) [Ratio] 12.4 % Normal 11.0-15.0 [facility] Comment on above: Performed By: #### C BC #### [facility] [address] [place] [address] Dr. Diann Dickerson Hematocrit (Bld) [Volume fraction] 38.0 % Normal 36.0-48.0 [facility] Comment on above: Performed By: #### C BC #### [facility] [address] [place] [address] Dr. Diann Dickerson Hemoglobin (Bld) [Mass/Vol] 13.1 g/dL Normal 12.0-16.0 [facility] Comment on above: Performed By: #### C BC #### [facility] [address] [place] [address] Dr. Diann Dickerson IG # 0.07 10e3/ul Critically high 0.00-0.03 [facility] Comment on above: Performed By: #### C BC #### [facility] [address] [place] [address] Dr. Diann Dickerson IG % 0.7 % Critically high 0.0-0.5 [facility] Comment on above: Performed By: #### C BC #### [facility] [address] [place] [address] Dr. Diann Dickerson LYMPH # 1.5 103/ul Normal 1.2-3.8 [facility] Comment on above: Performed By: #### C BC #### [facility] [address] [place] [address] Dr. Diann Dickerson Lymphocytes/100 WBC (Bld) 15.6 % Critically low 20.5-60.0 [facility] Comment on above: Performed By: #### C BC #### [facility] [address] [place] [address] Dr. Diann Dickerson MANUAL DIFF REQ NO Normal [facility] Comment on above: Performed By: #### C BC #### [facility] [address] [place] [address] Dr. Diann Dickerson MCH (RBC) [Entitic mass] 33.8 pg Normal 26.7-34.0 [facility] Comment on above: Performed By: #### C BC #### [facility] [address] [place] [address] Dr. Diann Dickerson MCHC (RBC) [Mass/Vol] 34.5 g/dL Normal 29.9-35.2 [facility] Comment on above: Performed By: #### C BC #### [facility] [address] [place] [address] Dr. Diann Dickerson MCV (RBC) [Entitic vol] 97.9 fL Normal 81.0-99.0 [facility] Comment on above: Performed By: #### C BC #### [facility] [address] [place] [address] Dr. Diann Dickerson MONO # 0.8 103/ul Normal 0.3-0.8 [facility] Comment on above: Performed By: #### C BC #### [facility] [address] [place] [address] Dr. Diann Dickerson Monocytes/100 WBC (Bld) 8.2 % Normal 1.7-12.0 [facility] Comment on above: Performed By: #### C BC #### [facility] [address] [place] [address] Dr. Diann Dickerson NEUT # 7.1 103/ul Critically high 1.4-6.5 [facility] Comment on above: Performed By: #### C BC #### [facility] [address] [place] [address] Dr. Diann Dickerson Neutrophils/100 WBC (Bld) 74.6 % Normal 43.0-75.0 [facility] Comment on above: Performed By: #### C BC #### [facility] [address] [place] [address] Dr. Diann Dickerson Platelet mean volume (Bld) [Entitic vol] 10.7 fL Normal 9.5-13.5 [facility] Comment on above: Performed By: #### C BC #### [facility] [address] [place] [address] Dr. Diann Dickerson PLT 172 103/ul Normal 150-450 [facility] Comment on above: Performed By: #### C BC #### [facility] [address] [place] [address] Dr. Diann Dickerson RBC 3.88 106/ul Critically low 4.20-5.40 [facility] Comment on above: Performed By: #### C BC #### [facility] [address] [place] [address] Dr. Diann Dickerson WBC 9.5 103/ul Normal 4.0-11.0 [facility] Comment on above: Performed By: #### C BC #### [facility] [address] [place] [address] Dr. Diann Dickerson [facility] SARS-CoV-2 (COVID-19) RNA PREMA+probe Ql (Unsp spec) Not detected Normal NOT DETECTED [facility] Comment on above: Result Comment: When [...] for this test is supported by the [place] of Health and Human Service's declaration that [...] used). Performed By: #### C VDTB #### [facility] [address] [place] [address] Dr. Diann Dickerson DRUG SCREEN RAPID (URINE)on 04-01-2022 AMP Negative Normal NEGATIVE [facility] Comment on above: Performed By: #### C BC #### [facility] [address] [place] [address] Dr. Diann Dickerson BAR Negative Normal NEGATIVE [facility] Comment on above: Performed By: #### C BC #### [facility] [address] [place] [address] Dr. Diann Dickerson BUP Negative Normal NEGATIVE [facility] Comment on above: Performed By: #### C BC #### [facility] [address] [address] [address] Diann Dickerson BZO Negative Normal NEGATIVE [facility] Comment on above: Performed By: #### C BC #### [facility] [address] [place] [address] Dr. Diann Dickerson KRYS Negative Normal NEGATIVE [facility] Comment on above: Performed By: #### C BC #### [facility] [address] [place] [address] Dr. Diann Dickerson CUT-OFFS SEE BELOW Normal [facility] Comment on above: Result Comment: AMP [...] ng/mL Performed By: #### C BC #### [facility] [address] [place] [address] Dr. Diann Dickerson DRUG CUT HEADER DRUG CLASS TEST SYSTEM CUT-OFF CONCENTRATIONS ARE FOLLOWS: Normal [facility] Comment on above: Performed By: #### C BC #### [facility] [address] [place] [address] Dr. Diann Dickerson mAMP Negative Normal NEGATIVE [facility] Comment on above: Performed By: #### C BC #### [facility] [address] [place] [address] Dr. Diann Dickerson MTD Negative Normal NEGATIVE [facility] Comment on above: Performed By: #### C BC #### [facility] [address] [place] [address] Dr. Diann Dickerson OPI Negative Normal NEGATIVE [facility] Comment on above: Performed By: #### C BC #### [facility] [address] [place] [address] Dr. Diann Dickerson OXY Negative Normal NEGATIVE [facility] Comment on above: Performed By: #### C BC #### [facility] [address] [place] [address] Dr. Diann Dickerson PCP Negative Normal NEGATIVE [facility] Comment on above: Performed By: #### C BC #### [facility] [address] [place] [address] Dr. Diann Dickerson PPX Negative Normal NEGATIVE [facility] Comment on above: Performed By: #### C BC #### [facility] [address] [place] [address] Dr. Diann Dickerson TCA Negative Normal NEGATIVE [facility] Comment on above: Performed By: #### C BC #### [facility] [address] [place] [address] Dr. Diann Dickerson THC Negative Normal NEGATIVE [facility] Comment on above: Performed By: #### C BC #### [facility] [address] [place] [address] Dr. Diann Dickerson GROUP B STREP CULTUREon [...] F Tetracycline >=16 R F Normal [facility] Comment on above: Performed By: #### C BC #### [facility] [address] [place] [address] Dr. Diann Dickerson US PREG GROWTHon 03-04-2022 [...] DEL RIO Date: 2022-03-04 17:33 Normal [facility] AMYLASEon 01-18-2022 Amylase [Catalytic activity/Vol] 30 U/L Normal 25-115 [facility] Comment on above: Performed By: #### C VDTBH #### [facility] [address] [place] [address] Dr. Diann Dickerson BUNon 01-18-2022 Urea nitrogen [Mass/Vol] 7.0 mg/dL Normal 7.0-18.0 [facility] Comment on above: Performed By: #### C VDTBH #### [facility] [address] [place] [address] Dr. Diann Dickerson CBC AUTO DIFFon 01-18-2022 BASO # 0.0 103/ul Normal 0.0-0.1 [facility] Comment on above: Performed By: #### C VDTBH #### [facility] [address] [place] [address] Dr. Diann Dickerson Basophils/100 WBC (Bld) 0.3 % Normal 0.2-2.0 [facility] Comment on above: Performed By: #### C VDTBH #### [facility] [address] [place] [address] Dr. Diann Dickerson EO # 0.1 103/ul Normal 0.0-0.7 [facility] Comment on above: Performed By: #### C VDTBH #### [facility] [address] [place] [address] Dr. Diann Dickerson Eosinophils/100 WBC (Bld) 0.6 % Critically low 0.9-7.0 [facility] Comment on above: Performed By: #### C VDTBH #### [facility] [address] [place] [address] Dr. Diann Dickerson Erythrocyte distribution width (RBC) [Ratio] 12.6 % Normal 11.0-15.0 [facility] Comment on above: Performed By: #### C VDTBH #### [facility] [address] [place] [address] Dr. Diann Dickerson Hematocrit (Bld) [Volume fraction] 36.8 % Normal 36.0-48.0 [facility] Comment on above: Performed By: #### C VDTBH #### [facility] [address] [place] [address] Dr. Diann Dickerson Hemoglobin (Bld) [Mass/Vol] 12.6 g/dL Normal 12.0-16.0 [facility] Comment on above: Performed By: #### C VDTBH #### [facility] [address] [place] [address] Dr. Diann Dickerson IG # 0.06 10e3/ul Critically high 0.00-0.03 [facility] Comment on above: Performed By: #### C VDTBH #### [facility] [address] [place] [address] Dr. Diann Dickerson IG % 0.7 % Critically high 0.0-0.5 [facility] Comment on above: Performed By: #### C VDTBH #### [facility] [address] [place] [address] Dr. Diann Dickerson LYMPH # 0.7 103/ul Critically low 1.2-3.8 [facility] Comment on above: Performed By: #### C VDTBH #### [facility] [address] [place] [address] Dr. Diann Dickerson Lymphocytes/100 WBC (Bld) 7.6 % Critically low 20.5-60.0 [facility] Comment on above: Performed By: #### C VDTBH #### [facility] [address] [place] [address] Dr. Diann Dickerson MANUAL DIFF REQ NO Normal [facility] Comment on above: Performed By: #### C VDTBH #### [facility] [address] [place] [address] Dr. Diann Dickerson MCH (RBC) [Entitic mass] 33.3 pg Normal 26.7-34.0 [facility] Comment on above: Performed By: #### C VDTBH #### [facility] [address] [place] [address] Dr. Diann Dickerson MCHC (RBC) [Mass/Vol] 34.2 g/dL Normal 29.9-35.2 [facility] Comment on above: Performed By: #### C VDTBH #### [facility] [address] [place] [address] Dr. Diann Dickerson MCV (RBC) [Entitic vol] 97.4 fL Normal 81.0-99.0 [facility] Comment on above: Performed By: #### C VDTBH #### [facility] [address] [place] [address] Dr. Diann Dickerson MONO # 0.5 103/ul Normal 0.3-0.8 [facility] Comment on above: Performed By: #### C VDTBH #### [facility] [address] [place] [address] Dr. Diann Dickerson Monocytes/100 WBC (Bld) 5.3 % Normal 1.7-12.0 [facility] Comment on above: Performed By: #### C VDTBH #### [facility] [address] [place] [address] Dr. Diann Dickerson NEUT # 7.6 103/ul Critically high 1.4-6.5 [facility] Comment on above: Performed By: #### C VDTBH #### [facility] [address] [place] [address] Dr. Diann Dickerson Neutrophils/100 WBC (Bld) 85.5 % Critically high 43.0-75.0 [facility] Comment on above: Performed By: #### C VDTBH #### [facility] [address] [place] [address] Dr. Diann Dickerson Platelet mean volume (Bld) [Entitic vol] 10.2 fL Normal 9.5-13.5 [facility] Comment on above: Performed By: #### C VDTBH #### [facility] [address] [address] [address] Diann Dickerson PLT 198 103/ul Normal 150-450 [facility] Comment on above: Performed By: #### C VDTBH #### [facility] [address] [address] [address] Diann Dickerson RBC 3.78 106/ul Critically low 4.20-5.40 [facility] Comment on above: Performed By: #### C VDTBH #### [facility] [address] [place] [address] Dr. Diann Dickerson WBC 8.9 103/ul Normal 4.0-11.0 [facility] Comment on above: Performed By: #### C VDTBH #### [facility] [address] [place] [address] Dr. Diann Dickerson CREATININEon 01-18-2022 Creatinine [Mass/Vol] 0.53 mg/dL Critically low 0.55-1.02 [facility] Comment on above: Performed By: #### C VDTBH #### [facility] [address] [place] [address] Dr. Diann Dickerson EGFR-AF GUINEAN >60 Normal >=60 [facility] Comment on above: Performed By: #### C VDTBH #### [facility] [address] [place] [address] Dr. Diann Dickerson EGFR-NON AF GUINEAN >60 Normal >=60 [facility] Comment on above: Performed By: #### C VDTBH #### [facility] [address] [place] [address] Dr. Diann Dickerson ELECTROLYTESon 01-18-2022 Anion gap [Moles/Vol] 9.6 mmol/L Normal [facility] Comment on above: Performed By: #### C VDTBH #### [facility] [address] [place] [address] Dr. Diann Dickerson Chloride [Moles/Vol] 106 mmol/L Normal 98-107 [facility] Comment on above: Performed By: #### C VDTBH #### [facility] [address] [place] [address] Dr. Diann Dickerson CO2 [Moles/Vol] 23.5 mmol/L Normal 21.0-32.0 [facility] Comment on above: Performed By: #### C VDTBH #### [facility] [address] [place] [address] Dr. Diann Dickerson Potassium [Moles/Vol] 4.1 mmol/L Normal 3.5-5.1 [facility] Comment on above: Performed By: #### C VDTBH #### [facility] [address] [place] [address] Dr. Diann Dickerson Sodium [Moles/Vol] 135 mmol/L Critically low 136-145 [facility] Comment on above: Performed By: #### C VDTBH #### [facility] [address] [place] [address] Dr. Diann LYNOTobrenda 01-18-2022 AST [Catalytic activity/Vol] 15 U/L Normal 15-37 [facility] Comment on above: Performed By: #### C VDTBH #### [facility] [address] [place] [address] Dr. Diann Dickerson SGPTon 01-18-2022 ALT [Catalytic activity/Vol] 19 U/L Normal 14-59 [facility] Comment on above: Performed By: #### C VDTBH #### [facility] [address] [place] [address] Dr. Diann Dickerson TSHon 01-18-2022 TSH 1.409 uIU/mL Normal 0.470-4.[address] [facility] Comment on above: Performed By: #### C VDTBH #### [facility] [address] [place] [address] Dr. Diann Dickerson TSH RANGE SEE BELOW Normal [facility] Comment on above: Result Comment: <0.3 4 UIU/ml HYPERTHYROID 0.34-5.60 UIU/ml EUTHYROID >5.60 UIU/ml HYPOTHYROID Performed By: #### C VDTBH #### [facility] [address] [place] [address] Dr. Diann Dickerson UA (CLEAN/CATCH) MANAGER LIGHTING/MICRO I F IND.on 01-18-2022 Bilirubin Ql (U) Negative Normal NEGATIVE [facility] Comment on above: Performed By: #### U ACSIND #### [facility] [address] [place] [address] Dr. Diann Dickerson Clarity (U) CLEAR Normal CLEAR [facility] Comment on above: Performed By: #### U ACSIND #### [facility] [address] [address] [address] Diann Dickerson Color (U) YELLOW Normal YELLOW [facility] Comment on above: Performed By: #### U ACSIND #### [facility] [address] [place] [address] Dr. Diann Dickerson Glucose Ql (U) Negative Normal NEGATIVE [facility] Comment on above: Performed By: #### U ACSIND #### [facility] [address] [place] [address] Dr. Diann Dickerson Hemoglobin Ql (U) Negative Normal NEGATIVE [facility] Comment on above: Performed By: #### U ACSIND #### [facility] [address] [place] [address] Dr. Diann Dickerson Ketones Ql (U) Negative Normal NEGATIVE [facility] Comment on above: Performed By: #### U ACSIND #### [facility] [address] [place] [address] Dr. Diann Dickerson LEUKOCYTES Negative Normal NEGATIVE [facility] Comment on above: Performed By: #### U ACSIND #### [facility] [address] [place] [address] Dr. Diann Dickerson Nitrite Ql (U) Negative Normal NEGATIVE [facility] Comment on above: Performed By: #### U ACSIND #### [facility] [address] [place] [address] Dr. Diann Dickerson pH (U) 8.5 [pH] Normal 5-9 [facility] Comment on above: Performed By: #### U ACSIND #### [facility] [address] [place] [address] Dr. Diann Dickerson SPEC GRAVITY 1.015 Normal 1.005-<=1.025 [facility] Comment on above: Performed By: #### U ACSIND #### [facility] [address] [place] [address] Dr. Diann Dickerson UA PROTEIN Negative Normal NEGATIVE/ TRACE [facility] Comment on above: Performed By: #### U ACSIND #### [facility] [address] [place] [address] Dr. Diann Dickerson UR MICRO IND NOT INDICATED Normal [facility] Comment on above: Performed By: #### U ACSIND #### [facility] [address] [address] [address] Diann Dickerson Urobilinogen Qn (U) 0.2 {Guy'U}/dL Normal 0.2 - 1. 0 [facility] Comment on above: Performed By: #### U ACSIND #### [facility] [address] [place] [address] Dr. Diann Dickerson US PREG BIOPHY W [...] MARBIN MCKEON Date: 2022-01-18 10:45 Normal [facility] US PREG CERVICAL LENGTHon US PREG CERVICAL LENGTH EXAMINATION: US PREG CERVICAL LENGTH HISTORY: Nausea and vomiting COMPARISON: 12/31/2021 FINDINGS: position: Cephalic Heart rate: 141 bpm Cervix: 4.7 cm, closed Clinical age: 20 weeks 5 days Clinical ANGELA: 04/07/2022 IMPRESSION: Closed cervix measuring 4.7 cm in length Electronically authenticated by: MARBIN MCKEON Date: 2022-01-18 10:46 Normal [facility] CULTURE URINEon 12-31-2021 CULTURE URINE Culture Observations : No growth Normal [facility] Comment on above: Performed By: #### C BC #### [facility] [address] [place] [address] Dr. Diann Dickerson US PREG AMNIOTIC FLUID [...] JAYSHREE DEL RIO Date: 2021-12-31 12:41 Normal [facility] GLUCOSE - 1HRon 12-17-2021 Glucose [Mass/Vol] 134 mg/dL Critically high 74-106 [facility] Comment on above: Performed By: #### G LU1HR #### [facility] [address] [place] [address] Dr. Diann Dickerson HEMOGRAM AND PLATELon 2021 Hematocrit (Bld) [Volume fraction] 36.7 % Normal 36.0-48.0 [facility] Comment on above: Performed By: #### C BC #### [facility] [address] [place] [address] Dr. Diann Dickerson Hemoglobin (Bld) [Mass/Vol] 12.5 g/dL Normal 12.0-16.0 [facility] Comment on above: Performed By: #### C BC #### [facility] [address] [place] [address] Dr. Diann Dickerson MCH (RBC) [Entitic mass] 33.2 pg Normal 26.7-34.0 [facility] Comment on above: Performed By: #### C BC #### [facility] [address] [place] [address] Dr. Diann Dickerson MCHC (RBC) [Mass/Vol] 34.1 g/dL Normal 29.9-35.2 [facility] Comment on above: Performed By: #### C BC #### [facility] [address] [place], [place] [address] Dr. Diann Dickerson MCV (RBC) [Entitic vol] 97.6 fL Normal 81.0-99.0 [facility] Comment on above: Performed By: #### C BC #### [facility] [address] [place], [place] [address] Dr. Diann Dickerson PLT 207 103/ul Normal 150-450 [facility] Comment on above: Performed By: #### C BC #### [facility] [address] [place], [place] [address] Dr. Diann Dickerson RBC 3.76 106/ul Critically low 4.20-5.40 [facility] Comment on above: Performed By: #### C BC #### [facility] [address] [place], [place] [address] Dr. Diann Dickerson WBC 6.3 103/ul Normal 4.0-11.0 [facility] Comment on above: Performed By: #### C BC #### [facility] [address] [place], [place] [address] Dr. Diann Dickerson US PREG ANATOMY SINGLEon [...] FL: 3.4 cm 20 weeks 5 days EFW:[id number]; FL/AC: 0.211176 FL/BPD: 0.869959 HC/AC: 1.389897 GESTATIONAL AGE: Age by EDC: 20 weeks 1 day ANGELA by EDC: 04/07/2022 Age by current US: 20 weeks 4 day ANGELA by current US: 04/04/2022 IMPRESSION: Normal anatomy scan *Reference: [facility] Practice Guideline for the performance of Obstetric Ultrasound Examinations, June 22, 2007. Electronically authenticated by: MARBIN MCKEON Date: 2021-11-20 07:34 Normal [facility] Vital Signs Date Time Vital Sign Value Performing Clinician Dipesh hooks 11-17-2024 09:19-0500 Body mass index (BMI) [Ratio] 27.73 kg/m2 Margret PETER Work Phone: [facility] 11-17-2024 09:19-0500 Body weight 85.19 kg Margret PETER Work Phone: [facility] 11-17-2024 09:19-0500 Diastolic blood pressure 70 mm[Hg] Margret PETER Work Phone: [facility] 11-17-2024 09:19-0500 Systolic blood pressure 110 mm[Hg] Margret PETER Work Phone: [facility] 11-03-2024 10:57-0500 Body mass index (BMI) [Ratio] 27.65 kg/m2 Giulia Javan DO Work Phone: [facility] 11-03-2024 10:57-0500 Body weight 84.94 kg Giulia Javan DO Work Phone: [facility] 10-06-2024 16:40-0500 Body mass index (BMI) [Ratio] 27.59 kg/m2 Giulia Javan DO Work Phone: [facility] 10-06-2024 16:40-0500 Body weight 84.73 kg Giulia Javan DO Work Phone: [facility] 10-06-2024 16:40-0500 Diastolic blood pressure 68 mm[Hg] Giulia Javan DO Work Phone: [facility] 10-06-2024 16:40-0500 Systolic blood pressure 102 mm[Hg] Giulia Javan DO Work Phone: [facility] 09-10-2024 08:45-0500 Body mass index (BMI) [Ratio] 27.32 kg/m2 [facility] Nurse [facility] 09-10-2024 08:45-0500 Body weight 83.92 kg [facility] Nurse [facility] 09-10-2024 08:45-0500 Diastolic blood pressure 70 mm[Hg] [facility] Nurse [facility] 09-10-2024 08:45-0500 Systolic blood pressure 118 mm[Hg] [facility] Nurse [facility] 08-16-2024 09:15-0500 Body height 175.3 cm Margret PETER Work Phone: [facility] 08-16-2024 09:15-0500 Body mass index (BMI) [Ratio] 27.32 kg/m2 Margret PETER Work Phone: [facility] 08-16-2024 09:15-0500 Body weight 83.92 kg Margret PETER Work Phone: [facility] 08-16-2024 09:15-0500 Diastolic blood pressure 68 mm[Hg] Margret PETER Work Phone: [facility] 08-16-2024 09:15-0500 Systolic blood pressure 116 mm[Hg] Margret PETER Work Phone: [facility] Healthcare Encounters Encounter Date Encounter Type Care Provider Facility Start: 11-29-2024 End: 11-29-2024 ambulatory MARGRET HORTON Not Available Start: 11-17-2024 End: 11-17-2024 Bamboo flowsheet Margret PETER Work Phone: [facility] Start: 11-17-2024 End: 11-22-2024 Bamboo flowsheet Margret PETER Work Phone: [facility] Start: 11-17-2024 End: 11-22-2024 Clinisync Result Encounter Margret PETER Work Phone: [facility] External Department Unsolicited Start: 11-17-2024 End: 11-17-2024 ambulatory MARGRET SOL Not Available Start: 11-17-2024 End: 11-17-2024 Patient encounter procedure Margret PETER Work Phone: [facility] Work Phone: Start: 11-17-2024 End: 11-17-2024 Periodic preventive med est patient 18-39 yrs Margret PETER Work Phone: [facility] Comment on above: Well woman exam with routine gynecological exam; 18 weeks gestation of ; Exposure to STD; Vaginal discharge; Second trimester Start: 11-15-2024 End: 11-16-2024 External Result Encounter Giulia Javan DO Work Phone: [facility] Unsolicited Start: 11-15-2024 End: 11-16-2024 External Result Encounter Guilia Javan DO Work Phone: [facility] Unsolicited Start: 11-09-2024 End: 11-09-2024 ambulatory GIULIA JAVAN Not Available Start: 11-09-2024 End: 11-09-2024 Patient encounter procedure [facility] Nurse [facility] Comment on above: Screening for lipoid disorders; Screening for diabetes mellitus Start: 11-03-2024 End: 11-03-2024 ambulatory GIULIA JAVAN Not Available Start: 11-03-2024 End: 11-03-2024 flow sheet Giulia Javan DO Work Phone: [facility] Comment on above: Second trimester [...] Result Encounter Giulia Javan DO Work Phone: [facility] External Department Unsolicited Start: 10-01-2024 End: 10-01-2024 Clinisync Result Encounter Giulia Javan DO Work Phone: [facility] Unsolicited Start: 09-10-2024 End: 09-10-2024 ambulatory GIULIA JAVAN Not Available Start: 09-10-2024 End: 09-10-2024 Patient encounter procedure [facility] Javan Nurse [facility] Comment on above: Missed menses; , unspecified gestational age; Encounter for supervision of normal first in first trimester; 9 weeks gestation of Start: 08-16-2024 End: 08-16-2024 Bamboo flowsheet Margret PETER Work Phone: [facility] Start: 08-16-2024 End: 08-16-2024 Bamboo flowsheet Margret PETER Work Phone: [facility] Start: 08-16-2024 End: 08-16-2024 ambulatory MARGRET HORTON Not Available Start: 08-16-2024 End: 08-16-2024 Office outpatient visit 15 minutes Margret PETER Work Phone: [facility] Comment on above: Annual wellness visi t (Primary Dx) Start: 08-16-2024 End: 08-16-2024 Patient encounter procedure Margret PETER Work Phone: [facility] Healthcare Work Phone: Start: 10-21-2022 End: 10-21-2022 ambulatory NICHOLAS KEYS Facility: Start: 10-17-2022 End: 10-17-[address] DEANNE [...] Date Procedure Procedure Detail Performing Clinician Start: 11-17-2024 IGP,APTIMA HPV,AGE GDLN Margret Horton PA Work Phone: Start: 11-15-2024 URINARY TRACT INFECT ION (HTRX) Giulia Javan DO Work Phone: Start: 11-09-2024 Lipid panel Rob Pelayo DO Work Phone: Start: 11-03-2024 Urnls dip stick/tabl et rgnt non-auto w/o micrscp Giulia Javan DO Work Phone: Start: 10-06-2024 Urnls dip stick/tabl et rgnt non-auto w/o micrscp Giulia Javan DO Work Phone: Start: 10-01-2024 BOX TEST Giulia Fazi o DO Work Phone: Start: 09-10-2024 End: 09-10-2024 Urnls dip stick/tablet rgnt non-auto w/o micrscp Giulia Javan DO Work Phone: Start: 08-11-2023 Microscopic observat ion [Identifier] in Cervix by Cyto stain Giulia Edouard DO Work Phone: Start: 08-11-2023 Cytp cerv/vag auto t hin layer prep mnl screen Margret Horton [facility] Work Phone: Start: 04-01-2022 Delivery of Products [...] Screening for malign ant neoplasm of cervix [facility] Start: 11-29-2024 End: 11-29-2024 Patient encounter procedure [facility] Start: 11-29-2024 End: 11-29-2024 Professional / ancillary services management 11/29/2024 8:00 AM EDT Ancillary Procedure [facility] [address] [place] [id number] [facility] Start: 11-03-2024 End: 11-03-2024 Patient encounter procedure 11/03/2024 3:40 PM EST Routine [facility] [address] [place] [address] Giulia Edouard, DO [address] [place] [address] [place] [address] [facility] Start: 11-03-2024 End: 12-01-2024 Alpha fetoprotein, maternal Alpha fetoprotein, maternal Lab Routine Need for maternal serum alpha-protein (MSAFP) screening Expected: 11/03/2024 (Approximate), Expires: 12/01/2024 [facility] Comment on above: Expected: 11/03/2024 (Approximate), Expires: 12/01/2024 Start: 11-03-2024 End: 11-03-2025 US for US OB 14+ weeks anatomy scan Imaging Routine Screening, , for anatomic survey Expected: 11/03/2024 (Approximate), Expires: 11/03/2025 [facility] Healthcare Work Phone: Comment on above: Expected: 11/03/2024 (Approximate), Expires: 11/03/2025 Start: 2024 Screening for malign ant neoplasm of cervix HPV/Cotest [facility] Start: 10-06-2024 End: 10-06-2024 Patient encounter procedure 10/06/2024 10:50 AM EST Routine [facility] [address] [place] [address] Giulia Edouard, DO [address] [place] [address] [facility] Start: 09-10-2024 End: 09-10-2025 ABO/Rh ABO/Rh Lab Routine Missed menses , unspecified gestational age Expected: 09/10/2024 (Approximate), Expires: 09/10/2025 [facility] Comment on above: Expected: 09/10/2024 (Approximate), Expires: 09/10/2025 Start: 09-10-2024 End: 09-10-2025 Blood type and Indirect antibody screen panel - Blood Type and screen Lab Routine Missed menses , unspecified gestational age Expected: 09/10/2024 (Approximate), Expires: 09/10/2025 [facility] Work Phone: Comment on above: Expected: 09/10/2024 (Approximate), Expires: 09/10/2025 Start: 09-10-2024 End: 09-10-2025 Drugs of abuse panel - Urine by Screen method Rapid drug screen, urine Lab Routine , unspecified gestational age Encounter for supervision of normal first in first trimester Expected: 09/10/2024 (Approximate), Expires: 09/10/2025 [facility] Comment on above: Expected: 09/10/2024 (Approximate), Expires: 09/10/2025 Start: 09-10-2024 End: 09-10-2025 US Pelvis transvaginal US OB transvaginal Imaging Routine Missed menses Expected: 09/10/2024 (Approximate), Expires: 09/10/2025 [facility] Comment on above: Expected: 09/10/2024 (Approximate), Expires: 09/10/2025 Start: 09-10-2024 End: 09-10-2024 Patient encounter procedure 09/10/2024 8:20 AM EST Routine [facility] [address] [place] [address] [facility] Start: 09-10-2024 End: 09-10-2024 Professional / ancillary services management 09/10/2024 8:00 AM EST Ancillary Procedure [facility] [address] [place] [address] [facility] Start: 08-16-2024 End: 08-16-2025 Lipid 1996 panel - Serum or Plasma Lipid panel Lab Routine Annual wellness visit Expected: 08/16/2024 (Approximate), Expires: 08/16/2025 [facility] Comment on above: Expected: 08/16/2024 (Approximate), Expires: 08/16/2025 Start: 05-23-2024 Influenza vaccination Influenza Vacc ine (#1) [facility] Bacteria identified in Urine by Culture Urine culture Microbiology Routine Missed menses Ordered: 09/10/2024 [facility] Comment on above: Ordered: 09/10/2024 CBC W Auto Different ial panel - Blood CBC and differential Lab Routine Annual wellness visit Ordered: 08/16/2024 [facility] Comment on above: Ordered: 08/16/2024 CBC W Auto Different ial panel - Blood CBC and differential Lab Routine Missed menses , unspecified gestational age Ordered: 09/10/2024 [facility] Comment on above: Ordered: 09/10/2024 CHLAMYDIA TRACHOMATI S (GENITO/STI) CHLAMYDIA TRACHOMATIS (GENITO/STI) Lab Routine Vaginal discharge Ordered: 11/17/2024 [facility] Comment on above: Ordered: 11/17/2024 Comprehensive metabo lic 2000 panel - Serum or Plasma Comprehensive metabolic panel Lab Routine Annual wellness visit Ordered: 08/16/2024 [facility] Comment on above: Ordered: 08/16/2024 Cytology Cervical or vaginal smear or scraping study Pap Smear Pathology and Cytology Routine Well woman exam with routine gynecological exam Ordered: 11/17/2024 [facility] Comment on above: Ordered: 11/17/2024 Hemoglobin A1c/Hemoglobin.total in Blood Hemoglobin A1c Lab Routine Annual wellness visit Ordered: 08/16/2024 [facility] Comment on above: Ordered: 08/16/2024 Hemoglobin A1c/Hemoglobin.total in Blood Hemoglobin A1c Lab Routine Missed menses , unspecified gestational age Ordered: 09/10/2024 [facility] Comment on above: Ordered: 09/10/2024 Hepatitis B virus surface Ag [Presence] in Serum or Plasma by Immunoassay Hepatitis B surface antigen Lab Routine Missed menses , unspecified gestational age Ordered: 09/10/2024 [facility] Comment on above: Ordered: 09/10/2024 Hepatitis C virus Ab [Presence] in Serum or Plasma by Immunoassay Hepatitis C antibody Lab Routine Missed menses , unspecified gestational age Ordered: 09/10/2024 [facility] Comment on above: Ordered: 09/10/2024 HIV-1/HIV-2 antigen/antibody combination immunoassay HIV-1 and HIV-2 antibodies Lab Routine Missed menses , unspecified gestational age Ordered: 09/10/2024 [facility] Comment on above: Ordered: 09/10/2024 Human papilloma viru s DNA [Presence] in Unspecified specimen by Probe with amplification HPV DNA probe, amplified Microbiology Routine Well woman exam with routine gynecological exam Ordered: 11/17/2024 [facility] Comment on above: Ordered: 11/17/2024 Neisseria gonorrhoea e DNA [Presence] in Unspecified specimen by PREMA with probe detection Neisseria gonorrhea DNA probe, direct Lab Routine Vaginal discharge Ordered: 11/17/2024 [facility] Comment on above: Ordered: 11/17/2024 Reagin Ab [Presence] in Serum by RPR RPR Lab Routine Missed menses , unspecified gestational age Ordered: 09/10/2024 [facility] Comment on above: Ordered: 09/10/2024 Rubella antibody, IgG Rubella an tibody, IgG Lab Routine Missed menses , unspecified gestational age Ordered: 09/10/2024 [facility] Comment on above: Ordered: 09/10/2024 SURESWAB(R) ADVANCED VAGINITIS PLUS, TMA SURESWAB(R) ADVANCED VAGINITIS PLUS, TMA Pathology and Cytology Routine Exposure to STD Ordered: 11/17/2024 [facility] Work Phone: Comment on above: Ordered: 11/17/2024 Thyrotropin [Units/volume] in Serum or Plasma TSH Lab Routine Annual wellness visit Ordered: 08/16/2024 [facility] Healthcare Work Phone: Comment on above: Ordered: 08/16/2024 Payers Date Payer Category Payer Unknown [id number] 2023 Medicaid (Managed Care) MEREDITH SHEN [id number] 2022 Private Health Insurance [id number] 1994 Unknown [id number] 1994 Unknown [id number] 2.16840.1.890209.3.579.2. 593 1994 Unknown [id number] 2.16.840.1.498532.3.579.2. 593 1994 Unknown [id number] 2.16840.1.467627.3.579.2. 593 1994 Unknown [id number] 2.16840.1.025542.3.579.2. 593 1994 Unknown [id number] 2.16.840.1.574921.3.579.2. 593 1994 Unknown [id number] 2.16.840.1.230299.3.579.2. 593 1994 Unknown [id number] 2.16.840.1.708581.3.579.2. 593 1994 Unknown [id number] 2.16.840.1.886749.3.579.2. 593 1994 Unknown [id number] 2.16.840.1.287998.3.579.2. 593 1994 Unknown [id number] 2.16.840.1.298391.3.579.2. 593 1994 Unknown [id number] 2.16.840.1.627531.3.579.2. 1259 1994 Unknown [id number] 2.16.840.1.730438.3.579.2. 1259 1994 Unknown [id number] 2.16.840.1.576436.3.579.2. 1259 1994 Unknown [id number] 2.16.840.1.131173.3.579.2. 1259 1994 Unknown [id number] 2.16.840.1.160619.3.579.2. 1259 1994 Unknown [id number] 2.16.840.1.473912.3.579.2. 1259 1994 Unknown [id number] 2.16.840.1.705408.3.579.2. 1259 1994 Unknown [id number] 2.16.840.1.089630.3.579.2. 1259 1959 Unknown [id number] 1959 Unknown [id number] 1959 Unknown [id number] Social History Date Type Detail Facility Tobacco smoking stat [facility] Tobacco smoking consumption unknown [facility] Start: 1995 Sex assigned at Female [facility] Start: 08-09-2024 Gender identity Identifies as female gender (finding) [facility] Start: 08-09-2024 Sexual orientation Heterosexual (fin ding) [facility] Start: 07-22-2024 [facility] Clinical Notes 11-19-2021 to 11-17-2024 ROME Adams - 11/17/2024 8:50 AM Fahad Macias RN - 11/09/2024 9:15 AM Primitivo Oh LPN - 11/03/2024 3:40 PM Primitivo Oh LPN - 10/06/2024 11:00 AM ROME Lassiter - 08/16/2024 8:50 AM EST Note Date & Type Note Facility 11-17-2024 History [...] nursing note reviewed. Exam conducted with a braider tender present. Vitals: Estimated body mass index is [...] of: ROME Adams documented in this encounter [facility] 11-09-2024 History of Presen t illness Narrative Employee presents for Biometric Screening. documented in this encounter [facility] 11-03-2024 History of Presen t illness Narrative [...] nursing note reviewed. Exam conducted with a braider tender present. Vitals: Estimated body mass index is [...] Giulia Edouard DO documented in this encounter [facility] 10-06-2024 History of Presen t illness Narrative [...] nursing note reviewed. Exam conducted with a braider tender present. Vitals: Estimated body mass index is [...] or undercooked meat, and stay away from [facility]. Patient has been consulted regarding any [...] Giulia Edouard DO documented in this encounter [facility] 09-10-2024 History of Presen t illness Narrative [...] or undercooked meat, and stay away from [facility]. Patient has also been advised to [...] Jaimee Beckman MA documented in this encounter [facility] 08-16-2024 History of Presen t illness Narrative [...] of: ROME Adams documented in this encounter [facility] 11-19-2021 Note PROCEDURE: XR WRIST LT MIN 3 V COMPARISON: None. HISTORY: Pain of left wrist FINDINGS: BONES:No fracture, acute abnormality, or significant arthropathy. SOFT TISSUES:Negative. No visible soft tissue swelling. EFFUSION:None visible. OTHER: Negative. IMPRESSION: No acute abnormality Electronically authenticated by: MARBIN MCKEON Date: 2021-11-19 13:16 [facility] Evaluation note Diagnosis Annual wellness visit- Primary documented in this encounter [facility] HealthcareEvaluation note* Diagnosis Missed menses , unspecified gestational age Encounter for supervision of normal first in first trimester 9 weeks gestation of documented in this encounter [facility] HealthcareEvaluation note* Diagnosis 12 weeks gestation of First trimester state, incidental documented in this encounter [facility] HealthcareEvaluation note* Diagnosis Second trimester state, incidental Hematuria, unspecified type Need for maternal serum alpha-protein (MSAFP) screening 16 weeks gestation of Screening, , for anatomic survey Encounter for anatomic survey Vaginal discharge during in second trimester [facility] Diagnosis Screening for lipoid disorders Screening for diabetes mellitus documented [facility]* Diagnosis Well woman exam with routine gynecological exam Routine gynecological examination 18 weeks gestation of Exposure to STD Vaginal discharge Leukorrhea, not specified as infective Second trimester state, incidental documented in this encounter [facility] Summary Purpose Family History No Family History Records FoundNo Family History Records Found Advance Directives No Advanced Directives Records FoundNo Advanced Directives Records Found Additional Source Comments INFORMATION SOURCE (unrecogn ized section and content) DATE CREATED AUTHOR 10/24/2022 [facility] DATE CREATED AUTHOR AUTHOR'S ORGANIZ ATION 12/03/2024 [facility] Special[facility] Care Teams (unrecognized sec tion and content) Sheet Metal Apprentice Relationship Specialty Start Date End Date Deanne Pierre MD [address] [place] [address] PCP - General Family Medicine 08/11/23 Sheet Metal Apprentice Relationship Specialty Start Date End Date Deanne Pierre MD [address] [place] [address] PCP - General Family Medicine 08/11/23 Sheet Metal Apprentice Relationship Specialty Start Date End Date Deanne Pierre MD [address] [place] [address] PCP - General Family Medicine 08/11/23 Sheet Metal Apprentice Relationship Specialty Start Date End Date Deanne Pierre MD [address] [place] [address] PCP - General Family Medicine 08/11/23 Sheet Metal Apprentice Relationship Specialty Start Date End Date Deanne Pierer MD [address] [place] [facility] [address] PCP - General Family Medicine 08/11/23 Sheet Metal Apprentice Relationship Specialty Start Date End Date Deanne Pierre MD [address] [place] [facility] [address] PCP - General Family Medicine 08/11/23 Sheet Metal Apprentice Relationship Specialty Start Date End Date Deanne Pierre MD [address] [place] [facility] [address] PCP - General Family Medicine 08/11/23 Sheet Metal Apprentice Relationship Specialty Start Date End Date Deanne Pierre MD [address] [place] [facility] [address] PCP - General Family Medicine 08/11/23 Sheet Metal Apprentice Relationship Specialty Start Date End Date Deanne Pierre MD [address] [place] [facility] [address] PCP - General Family Medicine 08/11/23 Sheet Metal Apprentice Relationship Specialty Start Date End Date Deanne Pierre MD [address] [place] [facility] [address] PCP - General Family Medicine 08/11/23 Reason [...] BE BASED ON THE PRIMARY CLINICAL RECORDS. [facility] [employer] [facility]. provides no warranty or guarantee of the accuracy or completeness of information in this document.
[2024-12-12 01:06] LABS: AFP Value 82.3 ng/mL (.); Gest. Age on Collection Date 22.1 weeks (.); Insulin Dep Diabetes No (.); Maternal Age At EDD 30.4 yr (.); OSBR Risk 1 IN 5411 (.); Results Report (.)
== END 2024-12-10 12:15 | disposition home or self-care (01) ==
LOC: LAB 12:16
PROVIDERS: PCP Family Medicine; Visit Provider Obstetrics & Gynecology
DX: Z34.92 Encounter for supervision of normal pregnancy, unspecified, second trimester (principal); Z36.1 Encounter for antenatal screening for raised alphafetoprotein level
CPT/HCPCS: 36415; 82105

== ENCOUNTER 2025-01-18 07:31 | Outpatient (OUT) | payer BC, OTHER, SELFPAY ==
[2025-01-18 08:39] LABS: Basophils Percent Auto 0.3 % (0.2-2.0); Eosinophils Absolute Auto 0.1 10^3/uL (0.0-0.7); Eosinophils Percent Auto 0.9 % (0.9-7.0); Hematocrit 32.8 % (36.0-48.0); Hemoglobin 11.6 g/dL (12.0-16.0); Immature Granulocytes Abs Auto 0.03 10^3/uL (0.00-0.03); Immature Granulocytes Pct Auto 0.5 % (0.0-0.5); Lymphocytes Percent Auto 16.4 % (20.5-60.0); Mean Corpuscular HGB Conc 35.4 g/dL (29.9-35.2); Mean Corpuscular Hemoglobin 34.2 pg (26.7-34.0); Mean Corpuscular Volume 96.8 fL (81.0-99.0); Mean Platelet Volume 10.1 fL (9.5-13.5); Monocytes Absolute Auto 0.5 10^3/uL (0.3-0.8); Monocytes Percent Auto 7.2 % (1.7-12.0); Neutrophils Absolute Auto 4.7 10^3/uL (1.4-6.5); Neutrophils Percent Auto 74.7 % (43.0-75.0); Platelet Count 175 10^3/uL (150-450); Red Blood Count 3.39 10^6/uL (4.20-5.40); Red Cell Distribution Width 12.6 % (11.0-15.0); White Blood Count 6.4 10^3/uL (4.0-11.0)
[2025-01-18 08:52] LABS: Glucose 1 Hour 80 mg/dL (<130)
== END 2025-01-18 07:32 | disposition home or self-care (01) ==
LOC: LAB 07:33
PROVIDERS: PCP Family Medicine; Visit Provider Obstetrics & Gynecology
DX: Z13.1 Encounter for screening for diabetes mellitus (principal); Z3A.24 24 weeks gestation of pregnancy
CPT/HCPCS: 36415; 82950; 85025

== ENCOUNTER 2025-02-02 11:42 | Observation (INO) | payer BC, OTHER, SELFPAY ==
--- NOTE | 2025-02-02 11:50 | US_ITS ---
The [address] [address] Patient Name: MIGUEL ÁNGEL SPANN MRN: [facility]:[id number] date: 1995 Sex: F Assigned Patient Location: [facility] Current Patient Location: [facility] Accession/Order Number: [id number] Exam Date: 02/02/2025 14:22 Report Date: 02/02/2025 14:25 At the request of: XI THOMAS MD Procedure: US OB cervical length US OB amniotic fluid vol, US OB cervical length 02/02/2025 1:04 PM SIGNS AND SYMPTOMS: Possible SROM COMPARISON: None. TECHNIQUE: Limited pelvic ultrasound using transvesical sonography. FINDINGS: An intrauterine is identified. The visualized fetus has an estimated gestational age of 9 weeks and 1 day . A heart rate is identified at 168 bpm. A normal amount of amniotic fluid is present. The amniotic fluid index is 14.70 cm. There is no evidence for placenta previa or subchorionic hemorrhage. Pelvic survey reveals no gross abnormalities. The cervix measures 4.6 cm in length. US/US OB amniotic fluid vol IMPRESSION: Single live IUP with an estimated gestational age of 9 weeks and 1 day and normal heart rate. The amniotic fluid index is 14.70 cm. The cervix measures 4.6 cm in length. Impression dictated by: Darrion Leggett M.D. 02/02/2025 2:25 PM Dictation Location: [place] [address] Electronically authenticated by: [id number] Y Date: 02/02/2025 14:25
[2025-02-02 12:16] VITALS: BP 136/86; PULSE 81
[2025-02-02 12:23] LABS: Bilirubin Urine NEGATIVE (NEGATIVE); Blood Urine NEGATIVE (NEGATIVE); Clarity Urine CLEAR (CLEAR); Color Urine LT. YELLOW (YELLOW); Glucose Urine UA NEGATIVE (NEGATIVE); Ketones Urine NEGATIVE (NEGATIVE); Leukocyte Esterase Urine MODERATE (NEGATIVE); Nitrite Urine NEGATIVE (NEGATIVE); Protein Urine NEGATIVE (NEG/TRACE); pH Urine 7.5 (5.0-9.0)
[2025-02-02 12:26] LABS: Urine Microscopic Indicated YES
[2025-02-02 12:31] LABS: Amnisure NEGATIVE (NEGATIVE); Internal Control Within Normal Limits
[2025-02-02 12:40] LABS: Bacteria Urine MODERATE #/HPF (NONE SEEN); RBC Urine 0-2 #/HPF (0-2)
[2025-02-02 12:41] LABS: Cast Seen? NONE SEEN #/LPF (NONE SEEN); Crystals Seen? None Seen #/HPF (None Seen); Mucus Urine NONE SEEN (NONE SEEN); Squamous Epithelial Cell Urine MODERATE #/LPF (NONE/RARE); Urine Culture Indicated YES-LC
--- NOTE | 2025-02-02 12:42 | PC.NURSE ---
1207- Amnisure collected at this time. White, clear vaginally discharged noted with amnisure swab.
--- NOTE | 2025-02-02 12:52 | PC.NURSE ---
1252- Ultrasound at bedside at this time.
--- NOTE | 2025-02-02 13:15 | US_ITS ---
The [address] [address] Patient Name: MIGUEL ÁNGEL SPANN MRN: [facility]:[id number] date: 1995 Sex: F Assigned Patient Location: [facility] Current Patient Location: [facility] Accession/Order Number: [id number] Exam Date: 02/02/2025 14:22 Report Date: 02/02/2025 14:25 At the request of: XI THOMAS MD Procedure: US OB cervical length US OB amniotic fluid vol, US OB cervical length 02/02/2025 1:04 PM SIGNS AND SYMPTOMS: Possible SROM COMPARISON: None. TECHNIQUE: Limited pelvic ultrasound using transvesical sonography. FINDINGS: An intrauterine is identified. The visualized fetus has an estimated gestational age of 9 weeks and 1 day . A heart rate is identified at 168 bpm. A normal amount of amniotic fluid is present. The amniotic fluid index is 14.70 cm. There is no evidence for placenta previa or subchorionic hemorrhage. Pelvic survey reveals no gross abnormalities. The cervix measures 4.6 cm in length. US/US OB cervical length IMPRESSION: Single live IUP with an estimated gestational age of 9 weeks and 1 day and normal heart rate. The amniotic fluid index is 14.70 cm. The cervix measures 4.6 cm in length. Impression dictated by: Darrion Leggett M.D. 02/02/2025 2:25 PM Dictation Location: [place] [address] Electronically authenticated by: [id number] Y Date: 02/02/2025 14:25
--- NOTE | 2025-02-02 13:39 | PC.NURSE ---
1330- Cervical length completed; cervix closed, 4.0cm
--- NOTE | 2025-02-02 14:36 | P.OBHP_ITS ---
OB - H&P: HPI History of Present Illness Chief complaint: OBSERVATION : 4 Para: 2 Date of last menstrual period: 07/08/24 Gestational age based on last menstrual period: 29 weeks and 6 days Narrative: Patient presents with complaint of leakage of fluid for possible ruptured membranes. She denies any contractions vaginal bleeding. Likewise she denies any headaches blurred vision right upper quadrant pain. course up to this point have been uncomplicated. History of Present Dating criteria: LMP confirmed by 1st trimester US care: good care Ultrasounds: normal 1st trimester US and normal mid trimester US Medical complications OB: none Labs Blood type: A (+) positive Rubella: immune RPR/VDLR: nonreactive GBS status: unknown HBsAG: negative Review of Systems ROS Status of ROS: 10 or more systems reviewed and unremarkable except as noted in history and below [facility] Medical History (Updated 02/02/25 @ 14:50 by Alessandro Lopez MD) Amniotic fluid leaking ?O42.90 - Premature rupture of membranes, unspecified as to length of time between rupture and onset of labor, unspecified weeks of gestation (ICD-10) Meds Home Medications and Allergies Allergies Allergy/AdvReac Type Severity Reaction Status Date / Time amoxicillin AdvReac Other Verified 02/02/25 12:56 Exam Narrative Exam Narrative: General appearance: Alert oriented distress. Constitutional Vital Signs, click to edit/add: Last Vital Signs Pulse 81 02/02/25 12:16 BP 136/86 02/02/25 12:16 Documenting provider has reviewed patient's vital signs: yes Common normals: no apparent distress, average body habitus, oriented x3, no limitations, healthy appearing, alert and well nourished General appearance: cooperative, comfortable, well kempt and well developed Nutritional appearance: other (Patient appears well-nourished.) Orientation/consciousness: Yes awake, Yes oriented to person, Yes oriented to place and Yes oriented to time GI Common normals: Normal to inspection, nondistended, normoactive bowel sounds present, soft to palpation and non-tender Inspection: normal to inspection Palpation: soft (Gravid uterus without any palpable contractions. Measured appropriate size) Back & Pelvis Pelvis: other (On bimanual examination cervix is long and closed. Vertex presentation.) Extremity Common normals: normal to inspection, no clubbing, cyanosis or edema, no calf tenderness and no pedal edema Results Labs Labs: Urine 02/02/25 Range/Units 11:15 Urine Color Lt. yellow (YELLOW) Urine Clarity Clear (CLEAR) Urine pH 7.5 (5.0-9.0) Ur Specific Gordon 1.010 (1.005-1.025) Urine Protein Negative (NEG/TRACE) mg/dL Urine Glucose (UA) Negative (NEGATIVE) mg/dL OB - A/P Assessment and Plan (1) Amniotic fluid leaking: Plan IUP at 29 weeks and 6 days with rupture membranes ruled out. Patient is for discharge to home and to keep her follow-up appointment. Additional Plan Plan: expectant management and other (Patient for discharge to home to keep her follow-up appointment.)
--- NOTE | 2025-02-02 14:45 | PC.NURSE ---
1415- Cervical exam performed per . Cervix long, closed. RN discusses FHR tracing and urine results with at bedside. Rn reports cervical length results. No further FHR monitoring needed. Pt await culture results and follow-up with office. Pt to be discharged home. No further orders at this time. 1425- Discharge instructions at this time. Pt discharged home self-care.
== END 2025-02-02 14:25 | disposition home or self-care (01) ==
LOC: FBC 11:45
PROVIDERS: Family Medicine Addiction Medicine; Admitting Provider Obstetrics & Gynecology; PCP Family Medicine; Visit Provider Obstetrics & Gynecology
DX: Z03.71 Encounter for suspected problem with amniotic cavity and membrane ruled out (principal); Z87.440 Personal history of urinary (tract) infections
CPT/HCPCS: 59025; 76815; 76817; 81001; 84112; 87086; G0378; G0379

== ENCOUNTER 2025-03-16 14:45 | Outpatient (REF) | payer BC, OTHER, SELFPAY ==
--- OUTSIDE RECORDS SUMMARY | 2025-03-09 16:00 | XMS_ITS | Encounter Summary ---
Author Organization [facility] Address [address] [place] [address] Care Team Providers Care Business Enterprise Officer Name Role Phone Nadeem Pierre MD Primary Care Provider [phone] Reason for Visit * Reason Comments Routine Visit Encounter Details Date Type Department Care Team (Late st Contact Info) Description 03/09/2025 4:00 PM EDT Routine [facility] [address] [place] [phone] Fidencio Edouard DO [address] [place] [address] 34 weeks gestation of ([facility]); Third trimester ([facility]) Social History Tobacco Use Types Packs/Day Years Used Date Smoking Tobacco: Never Assessed Estimated Date of Delivery Comme nts Yes 04/14/2025 Based on last me nstrual period of 07/08/2024 Sex and Gender Information Value Date Recorded Sex Assigned at Female 08/09/2024 4:43 PM EST Legal Sex Female 6:37 PM EDT Gender Identity Female 08/09/2024 4:43 PM EST Sexual Orientation Straight 08/09/2024 4: 43 PM EST documented as of this encounter Last Filed Vital Signs Vital Sign Reading Time Taken Comments Blood Pressure 120/70 03/09/2025 11:20 AM EDT Pulse - - Temperature - - Respiratory Rate - - Oxygen Saturation - - Inhaled Oxygen Concentration - - Weight 93.4 kg (206 lb) 03/09/2025 11:20 AM EDT Height - - Body Mass Index 30.42 08/16/2024 9:15 AM EST documented in this encounter Progress Notes * ROME Adams - 03/09/2025 4:00 PM EDT Reason for Appointment: Patient ID: Sidra Ortega is a 29 y.o. female who presents for Routine Visit Patient presents today for Return OB appointment. MEDICATIONS Current Outpatient Medications Medication Instructions meclizine (ANTIVERT) 12.5 mg, Oral, 3 times daily PRN methylPREDNISolone (Medrol Dospak) 4 MG tablets Day 1: 6 tablets Day 2: 5 tablets Day 3: 4 tablets Day 4: 3 tablets Day 5: 2 tablets Day 6: 1 tablet omeprazole OTC (PRILOSEC OTC) 20 mg, Oral, Daily before breakfast, Do not crush, chew, or split. Vit-Fe Fumarate-FA ( VITAMINS PO) promethazine (PHENERGAN) [...] reviewed. Vitals: Estimated body mass index is 30.42 kg/m?? as calculated from the following: Height as of 08/16/24: 5' 9 . Weight as of this encounter: 206 lb. BP: Patient's last menstrual period was 07/08/2024. ASSESSMENT & PLAN ICD-10-CM 1. 34 weeks gestation of ([facility]) Z3A.34 POCT urinalysis dipstick manually resulted 2. Third trimester ([facility]) Z34.93 POCT urinalysis dipstick manually resulted Return OB: Patient presents today for a routine obstetrics appointment. Patient is currently 34w6d . Patient states she is doing well but has complaints of being tired due to current . Patient has verbalizes frequent movement. labor precautions was discussed/given and patient was instructed to perform kick counts three times a day. Orders Placed This Encounter Procedures POCT urinalysis dipstick manually resulted Follow Up: Patient is to return to office in 1 week for routine OB appointment. Documented by RMOE Adams on behalf of: Fidencio Edouard DO documented in this encounter Plan of Treatment Upcoming Encounters Date Type Department Care Team (Late st Contact Info) Description 03/30/2025 4:00 PM EDT Routine [facility] [address] [place] [id number] Fidencio Edouard DO [facility] [place] [address] 04/06/2025 4:00 PM EDT Routine [facility] [address] [facility] [place] [phone] Fidencio Edouard DO [address] [place] [address] documented as of this encounter Procedures Procedure Name Priority Date/Time Associated Diagnosis Comments POCT URINALYSIS DIPSTICK Routine 03/09/2025 11:14 AM EDT 34 weeks gestation of ([facility]) Third trimester ([facility]) documented in this encounter Results * (ABNORMAL) POCT urinalysis dipstick manually resulted (03/09/2025 11:14 AM EDT) Color, UA Yellow Clarity, UA Cloudy Glucose, UA Negative Negative - 2000(110) ++++ mg/dL Bilirubin, UA Negative Negative - 4(70) +++ mg/dL Ketones, UA Negative Negative - 160(16) ++++ mg/dL Spec Grav, UA 1.025 1 - 1.03 Blood, UA Positive Negative - 50 Som/mcL Comment:Trace-intact pH, UA 7.0 5 - 9 Protein, UA Negative Negative - 2000(20) ++++ mg/dL Urobilinogen, UA 1.0 0.2 - 12 mg/dL Leukocytes, UA Positive Negative - 500+++ Eric/mcL Comment:Small Nitrite, UA Negative Negative - Positive Urine 03/09/2025 11:1 4 AM EDT Fidencio Edouard DO POINT OF CARE TEST ENTER/EDIT OR DERABLES Final Result documented in this encounter Visit Diagnoses Diagnosis 34 weeks gestation of ([facility]) Third trimester ([facility]) state, incidental documented in this encounter Care Teams Business Enterprise Officer Relationship Specialty Start Date End Date Nadeem Pierre MD [address] [facility] [place] [address] PCP - General Family Medicine 02/09/25 documented as of this encounter
--- OUTSIDE RECORDS SUMMARY | 2025-03-16 10:00 | XMS_ITS | Encounter Summary ---
Author Organization [facility] Address [address] [place] [address] Care Team Providers Care Consumer Loan Manager Name Role Phone Nadeem Pierre MD Primary Care Provider [phone] Reason for Visit * Reason Comments Routine Visit Encounter Details Date Type Department Care Team (Late st Contact Info) Description 03/16/2025 10:00 AM EDT Routine [facility] [address] [place] [phone] Margret Mcgovern PA [address] [facility] [place] [address] Third trimester ([facility]); 36 weeks gestation of ([facility]) Social History Tobacco Use Types Packs/Day Years [...] Sign Reading Time Taken Comments Blood Pressure 120/80 03/16/2025 9:24 AM EDT Pulse - - Temperature - - Respiratory Rate - - Oxygen Saturation - - Inhaled Oxygen Concentration - - Weight 93.9 kg (207 lb) 03/16/2025 9:24 AM EDT Height - - Body Mass Index 30.57 08/16/2024 9:15 AM EST documented in this encounter Progress Notes * ROME Adams - 03/16/2025 10:00 AM EDT Reason for Appointment: Patient ID: Sidra Ortega is a 29 y.o. female who presents for Routine Visit Patient presents today for Acute Visit. MEDICATIONS Current Outpatient Medications Medication Instructions meclizine [...] reviewed. Vitals: Estimated body mass index is 30.57 kg/m?? as calculated from the following: Height as of 08/16/24: 5' 9 . Weight as of this encounter: 207 lb. BP: 120/80 Patient's last menstrual period was 07/08/2024. ASSESSMENT & PLAN ICD-10-CM 1. Third trimester ([facility]) Z34.93 POCT urinalysis dipstick manually resulted CULTURE, GROUP B STREP WITH SUSCEPTIBLITY CULTURE, GROUP B STREP WITH SUSCEPTIBLITY 2. 36 weeks gestation of ([facility]) Z3A.36 Patient is doing well but has complaints of being tired and having maternal discomfort due to . Patient verbalized frequent movement and was instructed to perform kick counts three times per day. labor precautions were given, LARC consent was signed/declined, and GBS was obtained. Cervical check was performed and patient is 1cm dilated. Orders Placed This Encounter Procedures CULTURE, GROUP B STREP WITH SUSCEPTIBLITY POCT urinalysis dipstick manually resulted Follow Up: Patient is to return to office in 1 week for routine OB appointment Documented by ROME Adams on behalf of: ROME Adams documented in this encounter Plan of Treatment Upcoming Encounters Date Type Department Care Team (Late st Contact Info) Description 03/30/2025 4:00 PM EDT Routine [facility] [address] [place] [address] Fidencio Edouard DO [address] [place], [place] [id number] 04/06/2025 4:00 PM EDT Routine [facility] [address] [place] [address] Fidencio Edouard, DO [address] [facility] [address] [place] [address] Scheduled Orders Name Type Priority Associated Diagnoses Orde r Schedule CULTURE, GROUP B STREP WITH SUSCEPTIBLITY Lab Routine Third trimester ([facility]) Expected: 03/16/2025, Expires: 03/16/2026 documented as of this encounter Procedures Procedure Name Priority Date/Time Associated Diagnosis Comments POCT URINALYSIS DIPSTICK Routine 03/16/2025 9:22 AM EDT Third trimester ([facility]) documented in this encounter Results * (ABNORMAL) POCT urinalysis dipstick manually resulted (03/16/2025 9:22 AM EDT) Color, UA Yellow Clarity, UA Clear Glucose, UA Negative Negative - 2000(110) ++++ mg/dL Bilirubin, UA Negative Negative - 4(70) +++ mg/dL Ketones, UA Negative Negative - 160(16) ++++ mg/dL Spec Grav, UA 1.025 1 - 1.03 Blood, UA Negative Negative - 50 Som/mcL pH, UA 6.0 5 - 9 Protein, UA Negative Negative - 2000(20) ++++ mg/dL Urobilinogen, UA 1.0 0.2 - 12 mg/dL Leukocytes, UA Positive Negative - 500+++ Eric/mcL Comment:small Nitrite, UA Negative Negative - Positive Urine 03/16/2025 9:22 AM EDT Margret PETER POINT OF CARE TEST ENTER/EDIT OR DERABLES Final Result documented in this encounter Visit Diagnoses Diagnosis Third trimester ([facility]) state, incidental 36 weeks gestation of ([facility]) documented in this encounter Care Teams Consumer Loan Manager Relationship Specialty Start Date End Date Nadeem Pierre MD [address] [facility] [place] [address] PCP - General Family Medicine 02/09/25 documented as of this encounter
--- OUTSIDE RECORDS SUMMARY | 2025-03-16 14:47 | XMS_ITS | Encounter Summary ---
Author Organization [facility] Address [address] [facility] [place] [address] Care Team Providers Care Direct Mail Marketer Name Role Phone Nadeem Pierre MD Primary Care Provider [phone] Encounter Details Date Type Department Care Team (Late st Contact Info) Description 02/22/2025 Abstract [facility] [address] [place] [address] Fidencio Edouard DO [address] [place], [place] [id number] Social History Tobacco Use Types Packs/Day Years [...] PM EST documented as of this encounter Plan of Treatment Upcoming Encounters Date Type Department Care Team (Late st Contact Info) Description 03/30/2025 4:00 PM EDT Routine [facility] [address] [place] [address] Fidencio Edouard, [address] [place], [place] [id number] 04/06/2025 4:00 PM EDT Routine [facility] [address] [facility] [place] [address] Fidencio Edouard, [address] [facility] [place] [address] documented as of this encounter Visit Diagnoses Not on filedocumented in this encounter Care Teams Direct Mail Marketer Relationship Specialty Start Date End Date Nadeem Pierre MD [address] [facility] [place] [phone] PCP - General Family Medicine 02/09/25 documented as of this encounter
--- OUTSIDE RECORDS SUMMARY | 2025-03-16 14:47 | XMS_ITS | Encounter Summary ---
Author Organization [facility] Address [address] [facility] [place] [address] Care Team Providers Care Health Informatics Advisor Name Role Phone Nadeem Pierre MD Primary Care Provider [phone] Nadeem Pierre MD Primary Care Provider [phone] Encounter Details Date Type Department Care Team (Late st Contact Info) Description 10/11/2024 Abstract [facility] [address] [facility] [place] [address] Fidencio Edouard, [address] [place], [place] [phone] Social History Tobacco Use Types Packs/Day Years [...] PM EDT Routine [facility] [address] [facility] [place] [place] [address] Fidencio Edouard, DO [address] [facility] [place] [address] 04/06/2025 4:00 PM EDT Routine [facility] [address] [facility] [place] [phone] Fidencio Edouard, DO [address] [facility] [place] [address] documented as of this encounter Visit Diagnoses Not on filedocumented in this encounter Care Teams Health Informatics Advisor Relationship Specialty Start Date End Date Nadeem Pierre MD PCP - General Family Medicine 08/11/23 02/08/25 Nadeem Pierre MD [address] [facility] [place] [address] PCP - General Family Medicine 02/09/25 documented as of this encounter
--- OUTSIDE RECORDS SUMMARY | 2025-03-16 14:47 | XMS_ITS | Encounter Summary ---
Author Organization [facility] Address [address] [facility] [place] [address] Care Team Providers Care Curtain Cutter Name Role Phone Nadeem Pierre MD Primary Care Provider [phone] Nadeem Pierre MD Primary Care Provider [phone] Encounter Details Date Type Department Care Team (Late st Contact Info) Description 10/11/2024 Abstract [facility] [address] [facility] [place] [address] Fidencio Edouard, [address] [place], [place] [id number] Social History Tobacco Use Types Packs/Day Years [...] PM EDT Routine [facility] [address] [facility] [address] Fidencio Edouard, DO [address] [facility] [place] [address] 04/06/2025 4:00 PM EDT Routine [facility] [address] [facility] [place] [phone] Fidencio Edouard, DO [address] [facility] [place] [address] documented as of this encounter Visit Diagnoses Not on filedocumented in this encounter Care Teams Curtain Cutter Relationship Specialty Start Date End Date Nadeem Pierre MD PCP - General Family Medicine 08/11/23 02/08/25 Nadeem Pierre MD [address] [facility] [place] [address] PCP - General Family Medicine 02/09/25 documented as of this encounter
--- OUTSIDE RECORDS SUMMARY | 2025-03-16 14:47 | XMS_ITS | Encounter Summary ---
Author Organization [facility] Address [address] [facility] [place] [address] Care Team Providers Care Outpatient Admitting Clerk Name Role Phone Nadeem Pierre MD Primary Care Provider [phone] Encounter Details Date Type Department Care Team (Late st Contact Info) Description 02/24/2025 Abstract [facility] OB [address] [place] [address] Fidencio Edouard DO [address] [place], [place] [id number] Social History Tobacco Use Types Packs/Day Years [...] Routine [facility] [address] [place] [address] Fidencio Edouard, [address] [place], [place] [phone] 04/06/2025 4:00 PM EDT Routine [facility] OB [address] [facility] [place] [address] Fidencio Edouard, [address] [facility] [place] [address] documented as of this encounter Visit Diagnoses Not on filedocumented in this encounter Care Teams Outpatient Admitting Clerk Relationship Specialty Start Date End Date Nadeem Pierre MD [address] [facility] [place] [phone] PCP - General Family Medicine 02/09/25 documented as of this encounter
--- OUTSIDE RECORDS SUMMARY | 2025-03-16 14:47 | XMS_ITS | Encounter Summary ---
Author Organization [facility] Address [address] [facility] [place] [address] Care Team Providers Care Kindergartner Name Role Phone Nadeem Pierre MD Primary Care Provider [phone] Nadeem Pierre MD Primary Care Provider [phone] Encounter Details Date Type Department Care Team (Late st Contact Info) Description 09/10/2024 Abstract [facility] [address] [place] [address] Fidencio Edouard, [address] [place], [place] [phone] Social History Tobacco Use Types Packs/Day Years [...] PM EDT Routine [facility] [address] [facility] [place] [place] [address] Fidencio Edouard, DO [address] [facility] [place] [address] 04/06/2025 4:00 PM EDT Routine [facility] OB [address] [facility] [place] [phone] Fidencio Edouard, DO [address] [facility] [place] [address] documented as of this encounter Visit Diagnoses Not on filedocumented in this encounter Care Teams Kindergartner Relationship Specialty Start Date End Date Nadeem Pierre MD PCP - General Family Medicine 08/11/23 02/08/25 Nadeem Pierre MD [address] [facility] [place] [address] PCP - General Family Medicine 02/09/25 documented as of this encounter
--- OUTSIDE RECORDS SUMMARY | 2025-03-16 14:47 | XMS_ITS | Referral Summary ---
Author Organization [facility] Address [address] [place] [address] Care Team Providers Care Talent Consultant Name Role Phone Nadeem Pierre MD Primary Care Provider Encounters Date Type Department Care Team Description 01/28/2025 3:20 PM EDT Office Visit [facility] [address] [place] [address] Pete Hernández MD Dizziness (Primary Dx); Palpitations; SUNG (dyspnea on exertion); 29 weeks gestation of from Last 3 Months Allergies No known active allergies Medications meclizine (Antivert) 12.5 mg tablet Take 12.5 mg by mouth if needed in the morning, at noon, and at bedtime. 10/14/2024 Active omeprazole (PriLOSEC) [address] capsule Take 20 mg by mouth before breakfast. 12/15/2024 Active [id number]-[id number] 9-qpx-ztu-fish ( Multi-DHA,with vit K,) 27 mg iron-800 mcg-260 mg capsule Take by mouth. Active Active Problems Problem Noted Date Diagnosed Date Palpitations 01/30/2025 Dizziness 01/30/2025 SUNG (dyspnea on exertion) 01/30/2025 29 weeks gestation of 01/30/2025 Neck pain 01/28/2025 Acute sinusitis 09/24/2024 Comments Yes Immunizations Immunization Administration Dates Next Due DTP 07/21/2020 DTP / HiB 07/19/1996,03/28/1995 DTaP, Unspecified 06/11/2000,02/01/1998 HPV, Unspecified 06/04/2011 Hep B, Adolescent or Pediatric 02/01/1998,1995,03/28/1995 IPV 06/11/2000 MMR 06/11/2000,07/19/1996 OPV 02/01/1998,07/19/1996,03/28/1995 Social History Tobacco Use Types Packs/Day Years Used Date Smoking Tobacco: Never Smokeless Tobacco: Never Tobacco Cessation:Counseling Given: Not Answered Alcohol Use Standard Drinks/Week Comments Not Currently 0 (1 standard drink = 0.6 oz pur e alcohol) Comments Yes Sex and Gender Information Value Date Recorded Sex Assigned at Female 01/25/2025 9:06 AM EDT Legal Sex Female 3:35 PM EDT Gender Identity Female 01/25/2025 9:06 AM EDT Sexual Orientation Heterosexual or Straight 02/2025 9:06 AM EDT Last Filed Vital Signs Vital Sign Reading Time Taken Comments Blood Pressure 128/74 01/28/2025 3:40 PM EDT Pulse 81 01/28/2025 3:40 PM EDT Temperature - - Respiratory Rate - - Oxygen Saturation 99% 01/28/2025 3:40 PM EDT Inhaled Oxygen Concentration - - Weight 89.4 kg (197 lb) 01/28/2025 3:40 PM EDT Height 175.3 cm (5' 9 ) 01/28/2025 3:40 PM EDT Body Mass Index 29.09 01/28/2025 3:40 PM EDT Plan of Treatment Upcoming Encounters Date Type Department Care Team (Late st Contact Info) Description 04/01/2025 1:00 PM EDT Office Visit [facility] [address] [place] [address] Pete Hernández MD [address] [place] [address] MS:[address] [place] [address] Procedures Procedure Name Priority Date/Time Associated Diagnosis Comments ECG 12-LEAD Routine 01/28/2025 4:11 PM EDT Palpitations ECG 12 LEAD UNIT PERFORMED Routine 01/28/2025 3:18 PM EDT Palpitations from Last 3 Months Results * ECG 12 lead (01/28/2025 4:11 PM EDT) Narrative Pete Hernández MD - 01/28/2025 4:11 PM EDT normal sinus rhythm, heart rate 81 bpm, normal EKG Pete Hernández MD ECG ORDERABLES Final Result * ECG 12 lead unit performed (01/28/2025 3:18 PM EDT) Pete Hernández MD ECG ORDERABLES Final Result from Last 3 Months Insurance [employer] [facility] Member Subscriber Plan / Payer (Ef fective 2024-Present) Name:Sidra Ortega R Member ID:[id number] Relation to Subscriber:Self Name:Sidra Ortega Subscriber ID:[id number] Payer ID:[id number] (NAIC) Type:Not on file Address: [facility] [id number] [place] [id number] Care Teams Talent Consultant Relationship Specialty Start Date End Date Nadeem Pierre MD [address] [facility] [address] [address] PCP - General Family Medicine 01/31/25
--- OUTSIDE RECORDS SUMMARY | 2025-03-16 14:47 | XMS_ITS | Encounter Summary ---
Author Organization [facility] Address [address] [facility] [place] [address] Care Team Providers Care Insurance Follow Up Representative Name Role Phone Nadeem Pierre MD Primary Care Provider [phone] Encounter Details Date Type Department Care Team (Late st Contact Info) Description 03/11/2025 Abstract [facility] OB [address] [place] [address] Fidencio Edouard DO [address] [place], [place] [phone] Social History Tobacco Use Types Packs/Day Years [...] Routine [facility] [address] [place] [address] Fidencio Edouard, [address] [place], [place] [phone] 04/06/2025 4:00 PM EDT Routine [facility] OB [address] [facility] [place] [address] Fidencio Edouard, [address] [facility] [place] [address] documented as of this encounter Visit Diagnoses Not on filedocumented in this encounter Care Teams Insurance Follow Up Representative Relationship Specialty Start Date End Date Nadeem Pierre MD [address] [facility] [place] [phone] PCP - General Family Medicine 02/09/25 documented as of this encounter
--- OUTSIDE RECORDS SUMMARY | 2025-03-16 14:47 | XMS_ITS | Encounter Summary ---
Author Organization [facility] Address [address] [facility] [place] [address] Care Team Providers Care Magneto Repairer Name Role Phone Nadeem Pierre MD Primary Care Provider [phone] Nadeem Pierre MD Primary Care Provider [phone] Encounter Details Date Type Department Care Team (Late st Contact Info) Description 09/10/2024 Abstract [facility] [address] [place] [address] Fidencio Edouard, [address] [place], [place] [phone] Social History Tobacco Use Types Packs/Day Years [...] PM EDT Routine [facility] [address] [facility] [place] [place] [address] Fidencio Edouard, DO [address] [facility] [place] [address] 04/06/2025 4:00 PM EDT Routine [facility] OB [address] [facility] [place] [address] Fidencio Edouard, DO [address] [facility] [place] [address] documented as of this encounter Visit Diagnoses Not on filedocumented in this encounter Care Teams Magneto Repairer Relationship Specialty Start Date End Date Nadeem Pierre MD PCP - General Family Medicine 08/11/23 02/08/25 Nadeem Pierre MD [address] [facility] [place] [address] PCP - General Family Medicine 02/09/25 documented as of this encounter
--- OUTSIDE RECORDS SUMMARY | 2025-03-16 14:47 | XMS_ITS | Clinical Summary ---
Author Organization [facility] Address [address] [place] [address] Care Team Providers Care Inspector And Hand Packager Name Role Phone Nadeem Pierre MD Primary Care Provider [phone] Allergies No known active allergies Medications meclizine (Antivert) 12.5 mg tablet Take 12.5 mg by mouth if needed in the morning, at noon, and at bedtime. 10/14/2024 Active omeprazole (PriLOSEC) [address] capsule Take 20 mg by mouth before breakfast. 12/15/2024 Active [id number] 9-osc-dml-fish ( Multi-DHA,with vit K,) 27 mg iron-800 mcg-260 mg capsule Take by mouth. Active Active Problems Problem Noted Date Diagnosed Date Palpitations 01/30/2025 Dizziness 01/30/2025 SUNG (dyspnea on exertion) 01/30/2025 29 weeks gestation of 01/30/2025 Neck pain 01/28/2025 Acute sinusitis 09/24/2024 Comments Yes Encounters Date Type Department Care Team Description 01/28/2025 3:20 PM EDT Office Visit [facility] [address] [place] [address] Pete Hernández MD Dizziness (Primary Dx); Palpitations; SUGN (dyspnea on exertion); 29 weeks gestation of from Last 3 Months Immunizations Immunization Administration Dates Next Due DTP 07/21/2020 DTP / HiB 07/19/1996,03/28/1995 DTaP, Unspecified 06/11/2000,02/01/1998 HPV, Unspecified 06/04/2011 Hep B, Adolescent or Pediatric 02/01/1998,1995,03/28/1995 IPV 06/11/2000 MMR 06/11/2000,07/19/1996 OPV 02/01/1998,07/19/1996,03/28/1995 Family History Medical History Relation Name Comments Arrhythmia Mother Relation Name Status Comments Brother Alive Father Alive Mother Alive Social History Tobacco Use Types Packs/Day Years [...] Description 04/01/2025 1:00 PM EDT Office Visit [facility] [address] [place] [address] Pete Hernández MD [address] MS:[address] [place] [address] Health Maintenance Due Date Last Done Comments Depression Screening 2006 Varicella Vaccines (1 of 2 - 13+ 2-dose series) 2007 HPV Vaccines (2 - 3-dose series) 07/02/2011 06/04/2011 Adult Tetanus 2016 COVID-19 Vaccine ( season) 2024 HPV/Cotest 2024 Influenza Vaccine (Season Ended) 2025 Cervical Cancer Screening 11/17/2027 Pap Smear 11/17/2027 11/17/2024 Zoster Vaccines (1 of 2) 2044 HIB Vaccines Completed 07/19/1996, 03/28/1995 IPV Vaccines Completed 06/11/2000, 01/20, 07/19/1996, Additional history exists Meningococcal B Vaccine Aged Out No l onger eligible based on patient's age to complete this topic Meningococcal Vaccine Aged Out No jb teresa eligible based on patient's age to complete this topic Pneumococcal Vaccine: Pediatrics (0 to 5 Years) and At-Risk Patients (6 to 64 Years) Aged Out No longer eligible based on patient's age to complete this topic Rotavirus Vaccines Aged Out No longer eligible based on patient's age to complete this topic Procedures Procedure Name Priority Date/Time Associated Diagnosis [...] lead unit performed (01/28/2025 3:18 PM EDT) us Pete Hernández MD ECG ORDERABLES Final Result from Last 3 Months Insurance [employer] [facility] Care Teams Inspector And Hand Packager Relationship Specialty Start Date End Date Nadeem Pierre MD [address] [place] [address] PCP - General Family Medicine 01/31/25
--- OUTSIDE RECORDS SUMMARY | 2025-03-16 14:47 | XMS_ITS | Encounter Summary ---
Author Organization [facility] Address [address] [place] [address] Care Team Providers Care Personnel And Payroll Technician Name Role Phone Nadeem Pierre MD Primary Care Provider [phone] Nadeem Pierre MD Primary Care Provider [phone] Encounter Details Date Type Department Care Team (Late st Contact Info) Description 01/31/2025 Abstract [facility] [address] [place] [address] Jumana Ruiz MA Social History Tobacco Use Types Packs/Day Years [...] [address] [place] [address] Fidencio Edouard, DO [address] [place] [address] 04/06/2025 4:00 PM EDT Routine [facility] [address] [facility] [place] [address] Fidencio Edouard, [address] [facility] [address] [place], [place] [id number] documented as of this encounter Visit Diagnoses Not on filedocumented in this encounter Care Teams Personnel And Payroll Technician Relationship Specialty Start Date End Date Nadeem Pierre MD PCP - General Family Medicine 08/11/23 02/08/25 [place] [address] [place] [address] [place] [address] PCP - General Family Medicine 02/09/25 documented as of this encounter
--- OUTSIDE RECORDS SUMMARY | 2025-03-16 14:47 | XMS_ITS | Encounter Summary ---
Author Organization [facility] Address [address] [place] [address] Care Team Providers Care Retail Selling Specialist Name Role Phone Nadeem Pierre MD Primary Care Provider [phone] Nadeem Pierre MD Primary Care Provider [phone] Encounter Details Date Type Department Care Team (Late st Contact Info) Description 02/27/2024 Abstract [facility] [address] [facility] [place] [address] Ashlyn Trinidad LPN Social History Tobacco Use Types Packs/Day Years Used Date Smoking Tobacco: Never Assessed Comments Unknown Sex and Gender Information Value Date Recorded [...] PM EDT Routine [facility] [address] [place] [address] Fidencio Edouard DO [address] [place] [address] [place] [address] 04/06/2025 4:00 PM EDT Routine [facility] OB [address] [facility] [place] [address] Fidencio Edouard DO [address] [facility] [place] [address] documented as of this encounter Visit Diagnoses Not on filedocumented in this encounter Care Teams Retail Selling Specialist Relationship Specialty Start Date End Date Nadeem Pierre MD PCP - General Family Medicine 08/11/23 02/08/25 Nadeem Pierre MD [address] [facility] [place] [address] PCP - General Family Medicine 02/09/25 documented as of this encounter
--- OUTSIDE RECORDS SUMMARY | 2025-03-16 14:47 | XMS_ITS | Clinical Summary ---
Author Organization [facility] Address [address] [place] [address] Care Team Providers Care Industrial Cleaner Name Role Phone Nadeem Pierre MD Primary Care Provider [phone] Allergies No known active allergies Medications Vit-Fe Fumarate-FA ( VITAMINS PO) 4 Active promethazine (Phenergan) 12.5 MG tabletIndication s:Nausea Take 1 tablet (12.5 mg) by mouth every 6 (six) hours if needed for nausea or vomiting for up to 30 doses Take 1 tablet by mouth every 6 hours as needed for nausea. 30 tablet 2 4 Active meclizine (Antivert) 12.5 MG tabletIndication s:Nausea Take 1 tablet (12.5 mg) by mouth 3 (three) times a day as needed for dizziness or nausea for up to 30 doses 30 tablet 2 5 Active omeprazole OTC (PriLOSEC OTC) 20 MG EC tabletIndication s:Heartburn during , antepartum ([facility]) Take 1 tablet (20 mg) by mouth in the morning. Take before meals. Do not crush, chew, or split.. 30 tablet 11 5 12/16/19 26 Active methylPREDNISolo ne (Medrol Dospak) 4 MG tabletsIndicatio ns:Contact dermatitis, unspecified contact dermatitis type, unspecified trigger Day 1: 6 tablets Day 2: 5 tablets Day 3: 4 tablets Day 4: 3 tablets Day 5: 2 tablets Day 6: 1 tablet 21 tablet 5 Active metroNIDAZOLE (Flagyl) 500 MG tabletIndication s:Vaginal discharge during in third trimester ([facility]) Take 1 tablet (500 mg) by mouth in the morning and 1 tablet (500 mg) before bedtime. Do all this for 7 days. 14 tablet 5 02/17/20 25 Active Problems Problem Noted Date Diagnosed Date Acute sinusitis 09/24/2024 Estimated Date of Delivery Comme nts Yes 04/14/2025 Based on last me nstrual period of 07/08/2024 Encounters Date Type Department Care Team Description 03/16/2025 10:00 AM EDT Routine [facility] OB [address] [place] [address] Margret Mcgovern PA Third trimester ([facility]); 36 weeks gestation of ([facility]) 03/16/2025 Bamboo flowsheet [facility] [address] [place] [address] Margret Mcgovern PA 03/11/2025 Abstract [facility] [address] [place] [address] Fidencio Edouard DO 03/09/2025 4:00 PM EDT Routine [facility] [address] [place] [address] Fidencio Edouard, 34 weeks gestation of ([facility]); Third trimester ([facility]) 02/24/2025 Abstract [facility] [address] [place] [address] Fidencio Edouard DO 02/23/2025 4:00 PM EDT Routine [facility] [address] [place] [address] Fidencio Edouard, Third trimester ([facility]); 32 weeks gestation of ([facility]) 02/23/2025 Bamboo flowsheet [facility] [address] [place] [address] Fidencio Edouard, 02/22/2025 Abstract [facility] [address] [place] [address] Fidencio Edouard, DO 02/16/2025 11:00 AM EDT Ancillary Procedure [facility] [address] [place] [address] Vaginal discharge during in third trimester ([facility]) 02/09/2025 11:00 AM EDT Routine [facility] [address] [place] [address] Fidencio Edouard, Third trimester ([facility]); 30 weeks gestation of ([facility]); Vaginal discharge during in third trimester ([facility]) 02/09/2025 Bamboo flowsheet [facility] [address] [place] [address] Fidenico Edouard, 02/03/2025 8:00 AM EDT Ancillary Procedure [facility] [address] [place] [address] Excessive growth affecting management of , antepartum, single or unspecified fetus ([facility]) 02/02/2025 Abstract [facility] [address] [place] [address] Fidencio Edouard, 01/31/2025 Abstract [facility] [address] [place] [address] Jumana Ruiz MA 01/27/[address] [facility] [address] [place] [address] Margret Mcgovern PA 01/19/2025 4:00 PM EDT Routine [facility] OB [address] [place] [address] [place] [address] Fidencio Edouard, Second trimester ([facility]); 27 weeks gestation of ([facility]) 01/18/2025 Clinisync Result Encounter [facility] External Department Unsolicited Fidencio Edouard DO 12/28/2024 3:00 PM EDT Routine [facility] [address] [place] [address] Fidencio Edouard, 24 weeks gestation of ([facility]); Second trimester ([facility]); Diabetes mellitus screening; Excessive growth affecting management of , antepartum, single or unspecified fetus ([facility]); Near syncope; Heart palpitations 12/28/2024 Bamboo flowsheet [facility] [address] [place] [address] Fidencio Edouard DO 12/15/2024 Telephone [facility] [address] [place] [address] Ashlyn Trinidad LPN from Last 3 Months Social History Tobacco Use Types Packs/Day Years [...] Orientation Straight 08/09/2024 4: 43 PM EST Last Filed Vital Signs Vital Sign Reading Time Taken Comments Blood Pressure 120/80 03/16/2025 9:24 AM EDT Pulse - - Temperature - - Respiratory Rate - - Oxygen Saturation - - Inhaled Oxygen Concentration - - Weight 93.9 kg (207 lb) 03/16/2025 9:24 AM EDT Height 175.3 cm (5' 9 ) 08/16/2024 9:15 AM EST Body Mass Index 30.57 08/16/2024 9:15 AM EST Plan of Treatment Upcoming Encounters Date Type Department Care Team (Late st Contact Info) Description 03/30/2025 4:00 PM EDT Routine [facility] [address] [place] [address] Fidencio Edouard, DO [address] [facility] [place] [address] 04/06/2025 4:00 PM EDT Routine [facility] OB [address] [facility] [place] [address] Fidencio Edouard, DO [address] [facility] [place] [address] Health Maintenance Due Date Last Done Comments Influenza Vaccine (Season Ended) 2025 Cervical Cancer Screening 11/17/2025 HPV/Cotest 11/17/2025 Pap Smear 11/17/2025 11/17/2024, 08/11/2023 Procedures Procedure Name Priority Date/Time Associated Diagnosis Comments POCT URINALYSIS DIPSTICK Routine 03/16/2025 9:22 AM EDT Third trimester ([facility]) POCT URINALYSIS DIPSTICK Routine 03/09/2025 11:14 AM EDT 34 weeks gestation of ([facility]) Third trimester ([facility]) POCT URINALYSIS DIPSTICK Routine 02/23/2025 3:56 PM EDT Third trimester ([facility]) 32 weeks gestation of ([facility]) URINARY TRACT INFECTION (HTRX) Routine 02/22/2025 9:48 AM EDT US OB LIMITED 1+ FETUSES Routine 02/16/2025 12:01 PM EDT Vaginal discharge during in third trimester ([facility]) POCT URINALYSIS DIPSTICK Routine 02/09/2025 10:40 AM EDT Third trimester ([facility]) US OB FOLLOW UP TRANSABDOMINAL APPROACH Routine 02/03/2025 8:41 AM EDT Excessive growth affecting management of , antepartum, single or unspecified fetus ([facility] POCT URINALYSIS DIPSTICK Routine 01/19/2025 4:30 PM EDT Second trimester ([facility]) 27 weeks gestation of ([facility]) ALL CBC WITH AUTO DIFF Routine 8:31 AM EDT GLUCOSE 1 HOUR Routine 01/18/2025 8:31 AM EDT POCT URINALYSIS DIPSTICK Routine 12/28/2024 9:51 AM EDT 24 weeks gestation of ([facility]) Second trimester ([facility]) PAP SMEAR Routine 11/17/2024 12:00 AM EST from Last 3 Months or Most Recently Relevant to Health Maintenance Results * (ABNORMAL) POCT urinalysis dipstick manually resulted (03/16/2025 9:22 AM EDT) Only the most recent of6 resultswithin the time period is included. Color, UA Yellow Clarity, UA Clear Glucose, [...] CARE TEST ENTER/EDIT OR DERABLES Final Result * URINARY TRACT INFECTION (HTRX) (02/22/2025 9:48 AM EDT) ACINETOBACTER BAUMANII 0.000 19.961 - 24.689 ppm 02/23/2025 8:24 AM EDT [facility] ACINETOBACTER BAUMANII Not Detected 19.961 - 24.689 ppm 02/23/2025 8:24 AM EDT [facility] CITROBACTER FREUNDII 0.000 23.000 - 31.881 ppm 02/23/2025 8:24 AM EDT [facility] CITROBACTER FREUNDII Not Detected 23.000 - 31.881 ppm 02/23/2025 8:24 AM EDT [facility] ENTEROBACTER AEROGENES, CLOACAE 0.000 23.000 - 31.535 ppm 02/23/2025 8:24 AM EDT [facility] ENTEROBACTER AEROGENES, CLOACAE Not Detected 23.000 - 31.535 ppm 02/23/2025 8:24 AM EDT [facility] ENTEROCOCCUS FAECALIS, FAECIUM 0.000 26.000 - 31.575 ppm 02/23/2025 8:24 AM EDT [facility] ENTEROCOCCUS FAECALIS, FAECIUM Not Detected 26.000 - 31.575 ppm 02/23/2025 8:24 AM EDT [facility] ESCHERICHIA COLI 0.000 23.000 - 28.500 ppm 02/23/2025 8:24 AM EDT [facility] ESCHERICHIA COLI Not Detected 23.000 - 28.500 ppm 02/23/2025 8:24 AM EDT [facility] KLEBSIELLA PNEUMONIAE, OXYTOCA 0.000 23.000 - 30.500 ppm 02/23/2025 8:24 AM EDT [facility] KLEBSIELLA PNEUMONIAE, OXYTOCA Not Detected 23.000 - 30.500 ppm 02/23/2025 8:24 AM EDT [facility] MORGANELLA MORGANII 0.000 19.961 - 24.689 ppm 02/23/2025 8:24 AM EDT [facility] MORGANELLA MORGANII Not Detected 19.961 - 24.689 ppm 02/23/2025 8:24 AM EDT [facility] PROTEUS MIRABILIS, VULGARIS 0.000 23.000 - 28.500 ppm 02/23/2025 8:24 AM EDT [facility] PROTEUS MIRABILIS, VULGARIS Not Detected 23.000 - 28.500 ppm 02/23/2025 8:24 AM EDT [facility] PSEUDOMONAS AERUGINOSA 0.000 23.000 - 28.500 ppm 02/23/2025 8:24 AM EDT [facility] PSEUDOMONAS AERUGINOSA Not Detected 23.000 - 28.500 ppm 02/23/2025 8:24 AM EDT [facility] STAPHYLOCOCCUS AUREUS 0.000 26.000 - 30.902 ppm 02/23/2025 8:24 AM EDT [facility] STAPHYLOCOCCUS AUREUS Not Detected 26.000 - 30.902 ppm 02/23/2025 8:24 AM EDT [facility] STREPTOCOCCUS AGALACTIAE (GROUP B STREP) 0.000 26.000 - 32.222 ppm 02/23/2025 8:24 AM EDT [facility] STREPTOCOCCUS AGALACTIAE (GROUP B STREP) Not Detected 26.000 - 32.222 ppm 02/23/2025 8:24 AM EDT [facility] JAKE ALBICANS, PARAPSILOSIS, TROPICALIS 0.000 19.961 - 30.770 ppm 02/23/2025 8:24 AM EDT [facility] JAKE ALBICANS, PARAPSILOSIS, TROPICALIS Not Detected 19.961 - 30.770 ppm 02/23/2025 8:24 AM EDT [facility] JAKE GLABRATA 0.000 23.000 - 32.138 ppm 02/23/2025 8:24 AM EDT [facility] JAKE GLABRATA Not Detected 23.000 - 32.138 ppm 02/23/2025 8:24 AM EDT [facility] JAKE KRUSEI 0.000 23.000 - 32.271 ppm 02/23/2025 8:24 AM EDT [facility] JAKE KRUSEI Not Detected 23.000 - 32.271 ppm 02/23/2025 8:24 AM EDT [facility] SERRATIA MARCESCENS 0.000 23.000 - 31.204 ppm 02/23/2025 8:24 AM EDT [facility] SERRATIA MARCESCENS Not Detected 23.000 - 31.204 ppm 02/23/2025 8:24 AM EDT [facility] STREPTOCOCCUS PYOGENES (GROUP A STREP) 0.000 19.961 - 24.689 ppm 02/23/2025 8:24 AM EDT [facility] STREPTOCOCCUS PYOGENES (GROUP A STREP) Not Detected 19.961 - 24.689 ppm 02/23/2025 8:24 AM EDT [facility] STAPHYLOCOCCUS EPIDERMIDIS, HAEMOLYTICUS, LUGDUNENSIS, SAPROPHYTICUS (URINA 0.000 19.961 - 24.689 ppm 02/23/2025 8:24 AM EDT [facility] STAPHYLOCOCCUS EPIDERMIDIS, HAEMOLYTICUS, LUGDUNENSIS, SAPROPHYTICUS (URINA Not Detected 19.961 - 24.689 ppm 02/23/2025 8:24 AM EDT [facility] STAPHYLOCOCCUS EPIDERMIDIS, HAEMOLYTICUS, LUGDUNENSIS, SAPROPHYTICUS (URINA 0.000 19.961 - 24.689 ppm 02/23/2025 8:24 AM EDT [facility] STAPHYLOCOCCUS EPIDERMIDIS, HAEMOLYTICUS, LUGDUNENSIS, SAPROPHYTICUS (URINA Not Detected 19.961 - 24.689 ppm 02/23/2025 8:24 AM EDT [facility] Urine 02/22/2025 9:48 AM EDT 02/23/2025 2:51 AM EDT us Fidencio Javan DO LAB BLOOD ORDERABLES Final Resul t [facility] [address] [place] [address] * US OB limited 1+ fetuses (02/16/2025 12:01 PM EDT) Anatomical Region Laterality Modality Body Ultrasound 02/16/2025 11:2 0 PM EDT Narrative 02/16/2025 11:20 PM EDT EXAM: US OB LIMITED 1+ FETUSES HISTORY: Vaginal discharge, amniotic fluid. COMPARISON: Ob ultrasound 01/24/2025. TECHNIQUE: Two-dimensional transabdominal grayscale ultrasound imaging of the pelvis was performed. FINDINGS: Gestation: Single Presentation: Cephalic Cardiac Activity: 148 beats per minute Placental Location: Posterior with no sonographic abnormalities identified. Amniotic Fluid Index: 12.9 cm IMPRESSION: 1. Single, live intrauterine gestation 31 weeks, 6 days by LMP. ANGELA is 04/14/2025. 2. Amniotic fluid is within normal limits. Interpreted by: Electronically signed by LEANDRA LUU II, MD, PHD at 16-Feb-2025 11:19:13 PM [facility] Procedure Note Leandra Luu MD - 02/16/2025 EXAM: US OB LIMITED 1+ FETUSES HISTORY: Vaginal discharge, amniotic fluid. COMPARISON: Ob ultrasound 01/24/2025. TECHNIQUE: Two-dimensional transabdominal grayscale ultrasound imaging ofthe pelvis was performed. FINDINGS: Gestation: Single Presentation: Cephalic Cardiac Activity: 148 beats per minute Placental Location: Posterior with no sonographic abnormalitiesidentified. Amniotic Fluid Index: 12.9 cm IMPRESSION: 1. Single, live intrauterine gestation 31 weeks, 6 days by LMP. ANGELA is04/14/2025. 2. Amniotic fluid is within normal limits. Interpreted by: Electronically signed by LEANRDA LUU II, MD, PHD [id number] 11:19:13 PM [facility] us Fidencio Edouard DO [facility] OB US PROCEDURES Final Resul t * US OB follow up transabdominal approach (02/03/2025 8:41 AM EDT) Anatomical Region Laterality Modality Body Ultrasound 02/04/2025 10:1 3 AM EDT Narrative 02/04/2025 10:13 AM EDT EXAM: US OB FOLLOW UP TRANSABDOMINAL APPROACH HISTORY: Large for gestational age. COMPARISON: Ob ultrasound 11/29/2024. TECHNIQUE: Two-dimensional transabdominal grayscale ultrasound imaging of the pelvis was performed. FINDINGS: Gestation: Single Presentation: Cephalic Cardiac Activity: 138 beats per minute Placental Location: Posterior with no sonographic abnormalities identified. Cervical canal: Not visualized Amniotic Fluid Index: 12.7 cm MEASUREMENTS: BPD: 7.8 cm EGA: 31 weeks 1 days HC: 28.6 cm EGA: 31 weeks 3 days AC: 25.4 cm EGA: 29 weeks 4 days FL: 5.9 cm EGA: 30 weeks 6 days HC/AC Ratio: 1.13 The gestational age by today's ultrasound is 30 weeks 5 days (+/- 15 days gestation). Estimated Weight: 1544 grams, +/- 232 grams ( 3 lb 6 oz). Weight Percentile for gestational age: 47 % IMPRESSION: 1. Single, live intrauterine gestation 30 weeks, 0 days by LMP. Today's ultrasound measurements correlate with a gestational age of 30 weeks 5 days. Estimated weight is 1544 grams, +/- 232 grams ( 3 lb 6 oz) which correlates to 47 %. ANGELA is 04/09/2025. Interpreted by: Electronically signed by LEANDRA LUU II, MD, PHD at 04-Feb-2025 10:12:11 AM [facility] Procedure Note Leandra Luu MD - 02/04/2025 EXAM: US OB FOLLOW UP TRANSABDOMINAL APPROACH HISTORY: Large for gestational age. COMPARISON: Ob ultrasound 11/29/2024. TECHNIQUE: Two-dimensional transabdominal grayscale ultrasound imaging ofthe pelvis was performed. FINDINGS: Gestation: Single Presentation: Cephalic Cardiac Activity: 138 beats per minute Placental Location: Posterior with no sonographic abnormalitiesidentified. Cervical canal: Not visualized Amniotic Fluid Index: 12.7 cm MEASUREMENTS: BPD: 7.8 cm EGA: 31 weeks 1 days HC: 28.6 cm EGA: 31 weeks 3 days AC: 25.4 cm EGA: 29 weeks 4 days FL: 5.9 cm EGA: 30 weeks 6 days HC/AC Ratio: 1.13 The gestational age by today's ultrasound is 30 weeks 5 days (+/- 15 daysgestation). Estimated Weight: 1544 grams, +/- 232 grams ( 3 lb 6 oz). Weight Percentile for gestational age: 47 % IMPRESSION: 1. Single, live intrauterine gestation 30 weeks, 0 days by LMP. Today'sultrasound measurements correlate with a gestational age of 30 weeks 5days. Estimated weight is 1544 grams, +/- 232 grams ( 3 lb 6 oz)which correlates to 47 %. ANGELA is 04/09/2025. Interpreted by: Electronically signed by LEANDRA LUU II, MD, PHD [id number] 10:12:11 AM [facility] us Fidencio Javan DO IMG OB US PROCEDURES Final Resul t * GLUCOSE 1 HOUR (01/18/2025 8:31 AM EDT) GLUCOSE 1 HOUR 80 <130 mg/dL [facility] 01/18/2025 8:31 AM EDT 01/18/2025 8:32 AM EDT Narrative [facility] - 01/18/2025 8:57 AM EDT us Fidencio Javan DO LAB BLOOD ORDERABLES Final Resul t [facility] * (ABNORMAL) ALL CBC WITH AUTO DIFF (01/18/2025 8:31 AM EDT) [facility] WBC 6.4 4.0 - 11.0 10 3/uL [facility] RBC 3.39(L) 4.20 - 5.40 10 6/uL [facility] HGB 11.6(L) 12.0 - 16.0 g/dL [facility] HCT 32.8(L) 36.0 - 48.0 % [facility] MCV 96.8 81.0 - 99.0 fL TBH [facility] MCH 34.2(H) 26.7 - 34.0 pg TBH [facility] MCHC 35.4(H) 29.9 - 35.2 g/dL [facility]H RDW 12.6 11.0 - 15.0 % [facility]H PLT 175 150 - 450 10 3/uL [facility]H TBH MPV 10.1 9.5 - 13.5 fL [facility] NEUTROPHILS PERCENT AUTO 74.7 43.0 - 75.0 % [facility] LYMPHOCYTES PERCENT AUTO 16.4(L) 20.5 - 60.0 % [facility] MONOCYTES PERCENT AUTO 7.2 1.7 - 12.0 % [facility]H EO % 0.9 0.9 - 7.0 % [facility] BASOPHILS PERCENT AUTO 0.3 0.2 - 2.0 % [facility] IMMATURE GRANULOCYTES PCT AUTO 0.5 0.0 - 0.5 % [facility] NEUTROPHILS ABSOLUTE AUTO 4.7 1.4 - 6.5 10 3/uL [facility] LYMPHOCYTES ABSOLUTE AUTO 1.0(L) 1.2 - 3.8 10 3/uL [facility] MONOCYTES ABSOLUTE AUTO 0.5 0.3 - 0.8 10 3/uL [facility]H TBH EO # 0.1 0.0 - 0.7 10 3/uL [facility] BASOPHILS ABSOLUTE AUTO 0.0 0.0 - 0.1 10 3/uL [facility] IMMATURE GRANULOCYTES ABS AUTO 0.03 0.00 - 0.03 10 3/uL [facility] 01/18/2025 8:31 AM EDT 01/18/2025 8:32 AM EDT Narrative [facility] - 01/18/2025 9:06 AM EDT us Fidencio Edouard DO [facility] Final Result [facility] * Pap Smear (11/17/2024 12:00 AM EST) Swab Cervical swab / Unknown Margret PETER LAB CYTOLOGY ORDERABLES Final Re sult EXTERNAL LAB from Last 3 Months or Most Recently Relevant to Health Maintenance Insurance [facility] Care Teams Industrial Cleaner Relationship Specialty Start Date End Date Nadeem Pierre MD [address] [place] [address] PCP - General Family Medicine 02/09/25
--- OUTSIDE RECORDS SUMMARY | 2025-03-16 14:47 | XMS_ITS | Encounter Summary ---
Author Organization [facility] Address [address] [facility] [place] [address] Care Team Providers Care Assurance Associate Name Role Phone Nadeem Pierre MD Primary Care Provider [phone] Encounter Details Date Type Department Care Team (Late st Contact Info) Description 03/16/2025 Bamboo flowsheet [facility] OB [address] [address] Margret Mcgovern PA [address] [place] [address] [address] [place], [place] [address] Social History Tobacco Use Types Packs/Day Years [...] PM EDT Routine [facility] [address] [facility] [place] [address] Fidencio Edouard DO [address] [place], [place] [address] 04/06/2025 4:00 PM EDT Routine [facility] [address] [facility] [place] [id number] Fidencio Edouard, DO [address] [place] [address] documented as of this encounter Visit Diagnoses Not on filedocumented in this encounter Care Teams Assurance Associate Relationship Specialty Start Date End Date Nadeem Pierre MD [address] [facility] [place] [address] PCP - General Family Medicine 02/09/25 documented as of this encounter
--- OUTSIDE RECORDS SUMMARY | 2025-03-16 14:47 | XMS_ITS | Encounter Summary ---
Author Organization [facility] Address [address] [facility] [place] [address] Care Team Providers Care Grid Trimmer Name Role Phone Nadeem Pierre MD Primary Care Provider [phone] Nadeem Pierre MD Primary Care Provider [phone] Encounter Details Date Type Department Care Team (Late st Contact Info) Description 09/10/2024 Clinisync Result Encounter [facility] External Department Unsolicited Giulia Edouard DO [address] [place] [address] Social History Tobacco Use Types Packs/Day Years [...] Routine [facility] BCP OB [address] [place] [phone] Giulia Edouard DO [address] [place] [address] 04/06/2025 4:00 PM EDT Routine [facility] BCP OB [address] [place] [phone] Giulia Edouard DO [address] [place] [address] documented as of this encounter Procedures Procedure Name Priority Date/Time Associated Diagnosis Comments US OB TRANSVAGINAL 09/10/2024 9: 47 AM EST documented in this encounter Results * US OB TRANSVAGINAL (09/10/2024 9:47 AM EST) Anatomical Region Laterality Modality Other 09/10/2024 9:47 AM EST Narrative 09/10/2024 2:41 [place] [address] Ultrasound Report Signed Patient: MIGUEL ÁNGEL ORTEGA MR#: [id number] : 1995 Acct:[id number] Age/Sex: 28 / F ADM Date: 09/10/24 Loc: [facility] Attending Dr: Giulia Edouard D.O. Ordering Physician: Giulia Edouard D.O. Date of Service: 09/10/24 Procedure(s): US OB transvaginal Accession Number(s): [id number] cc: Giulia Edouard D.O.; Nadeem Pierre M.D. The [address] [address] Patient Name: MIGUEL ÁNGEL ORTEGA MRN: [id number] date: 1995 Sex: F Assigned Patient Location: [facility] Current Patient Location: [facility] Accession/Order Number: [id number] Exam Date: 09/10/2024 08:06 Report Date: 09/10/2024 09:47 At the request of: GIULIA EDOUARD Procedure: US OB transvaginal EXAMINATION: US OB transvaginal HISTORY: MISSED MENSES COMPARISON: No relevant comparison available. FINDINGS: Lim intrauterine gestation Gestational sac: 5.17 cm, 11 weeks 2 days CRL: 2.49 cm, 9 weeks 1 day Yolk sac: 4.8 mm Heart rate: 168 bpm Cervix: Closed, 4.6 cm Clinical age: 9 weeks 1 day Clinical ANGELA: 04/14/2025 Ultrasound age: 9 weeks 1 day Ultrasound ANGELA: 04/14/2025 US/US OB transvaginal IMPRESSION: Viable lim intrauterine gestation measuring 9 weeks 1 day Electronically authenticated by: MARBIN MCKEON Date: 09/10/2024 09:47 Dictated By: Marbin Mckeon M.D. Signed By: 09/10/24 1441 DD/ 0947 TD/TT: Width Stripper: Procedure Note Radiology, Radiologist, MD - 09/10/2024 [place] [address] Ultrasound Report Signed Patient: MIGUEL ÁNGEL ORTEGA RMR#: [id number] : 1995Acct:[id number] Age/Sex: 28 FADM Date: 09/10/24 Loc: [facility] Attending Dr: Giulia Edouard D.O. Ordering Physician: Giulia Edouard D.O. Date of Service: 09/10/24 Procedure(s): US OB transvaginal Accession Number(s): [id number] cc: Giulia Edouard D.O.; Nadeem Pierre M.D. The [place] [id number] Patient Name: MIGUEL ÁNGEL ORTEGA MRN: [id number] date: 1995 Sex: F Assigned Patient Location: [facility] Current Patient Location: [facility] Accession/Order Number: [id number] Exam Date: 09/10/2024 08:06 Report Date: 09/10/2024 09:47 At the request of: GIULIA EDOUARD Procedure: US OB transvaginal EXAMINATION: US OB transvaginal HISTORY: MISSED MENSES COMPARISON: No relevant comparison available. FINDINGS: Lim intrauterine gestation Gestational sac: 5.17 cm, 11 weeks 2 days CRL: 2.49 cm, 9 weeks 1 day Yolk sac: 4.8 mm Heart rate: 168 bpm Cervix: Closed, 4.6 cm Clinical age: 9 weeks 1 day Clinical ANGELA: 04/14/2025 Ultrasound age: 9 weeks 1 day Ultrasound ANGELA: 04/14/2025 US/US OB transvaginal IMPRESSION: Viable lim intrauterine gestation measuring 9 weeks 1 day Electronically authenticated by: MARBIN MCKEON Date: 09/10/2024 09:47 Dictated By: Marbin Mckeon M.D. Signed By:09/10/24 1441 DD/ 0947 TD/TT: Width Stripper: us Giulia Javan DO [facility] Final Result documented in this encounter Visit Diagnoses Not on filedocumented in this encounter Care Teams Grid Trimmer Relationship Specialty Start Date End Date Nadeem Pierre MD PCP - General Family Medicine 08/11/23 02/08/25 Nadeem Pierre MD [address] [place] [id number] PCP - General Family Medicine 02/09/25 documented as of this encounter
--- OUTSIDE RECORDS SUMMARY | 2025-03-16 14:48 | XMS_ITS | Encounter Summary ---
Author Organization [facility] Address [address] [facility] [place] [address] Care Team Providers Care Professor Of Journalism Name Role Phone Nadeem Pierre MD Primary Care Provider [phone] Nadeem Pierre MD Primary Care Provider [phone] Encounter Details Date Type Department Care Team (Late st Contact Info) Description 02/02/2025 Abstract [facility] [address] [facility] [place] [address] Fidencio Edouard, [address] [place], [place] [id number] Social History Tobacco Use Types Packs/Day Years [...] PM EDT Routine [facility] [address] [facility] [place] [address] Fidencio Edouard, DO [address] [facility] [place] [address] 04/06/2025 4:00 PM EDT Routine [facility] [address] [facility] [place] [id number] Fidencio Edouard, DO [address] [facility] [place] [address] documented as of this encounter Visit Diagnoses Not on filedocumented in this encounter Care Teams Professor Of Journalism Relationship Specialty Start Date End Date Nadeem Pierre MD PCP - General Family Medicine 08/11/23 02/08/25 Nadeem Pierre MD [address] [facility] [place] [address] PCP - General Family Medicine 02/09/25 documented as of this encounter
--- OUTSIDE RECORDS SUMMARY | 2025-03-16 14:48 | XMS_ITS | Encounter Summary ---
Author Organization [facility] Address [address] [place] [address] Care Team Providers Care Health And Safety Manager Name Role Phone Nadeem Pierre MD Primary Care Provider [phone] Nadeem Pierre MD Primary Care Provider [phone] Encounter Details Date Type Department Care Team (Late st Contact Info) Description 11/29/2024 Orders Only [facility] [address] [place] [address] Jumana Ruiz MA Social History Tobacco [...] Routine [facility] [address] [place] [address] Fidencio Edouard, DO [address] [place] [address] 04/06/2025 4:00 PM EDT Routine [facility] [address] [facility] [place] [phone] Fidencio Edouard, [address] [facility] [address] [place], [place] [id number] documented as of this encounter Procedures Procedure Name Priority Date/Time Associated Diagnosis Comments PAP SMEAR Routine 11/17/2024 12:00 AM EST documented in this encounter Results * Pap Smear (11/17/2024 12:00 AM EST) Swab Cervical swab / Unknown us [facility] ORDERABLES Final Re sult [facility] documented in this encounter Visit Diagnoses Not on filedocumented in this encounter Care Teams Health And Safety Manager Relationship Specialty Start Date End Date Nadeem Pierre MD PCP - General Family Medicine 08/11/23 02/08/25 Nadeem Pierre MD [address] [facility] [place] [address] PCP - General Family Medicine 02/09/25 documented as of this encounter
== END 2025-03-16 14:46 | disposition home or self-care (01) ==
LOC: LAB 14:45
PROVIDERS: PCP Family Medicine; Visit Provider Physician Assistant
DX: Z34.93 Encounter for supervision of normal pregnancy, unspecified, third trimester (principal)
CPT/HCPCS: 87081

== ENCOUNTER 2025-04-07 05:10 | Inpatient (IN) | payer BC, OTHER, SELFPAY ==
[2025-04-07] VITALS (33 sets, daily range): BP systolic 116–164; BP diastolic 60–113; PULSE 63–133; TEMP 36.1–36.8
--- OUTSIDE RECORDS SUMMARY | 2025-04-07 05:17 | XMS_ITS | CCD ---
Author Organization [facility] Care Team Providers Care Supervisor [employer] Name Role Phone JAVAN, DR PLATT Attending [...] Care Unavailable JAVAN, DR PLATT Attending Unavailable JAVAN, DR PLATT Admitting Unavailable JAYSHREE WHIPPLE Consulting Unavailable JAVAN, DR PLATT Procedure Practitioner Unavailab NICHOLAS Mendoza Consulting Unavailable LUDMILA, NICHOLAS Attending Unavailable NICHOLAS KEYS Admitting Unavailable DR DEANNE PIERRE Primary Care Unavailable Deanne Pierre MD Primary Care Provider [phone] NAYANA REDD Attending Unavailable Deanne Pierre MD Primary Care Provider [phone] Deanne Pierre MD Primary Care Provider [phone] JAVAN, GIULIA Attending Unavailable SOL, MARGRET Attending Unavailable SOL, MARGRET Attending Unavailable JAVAN, GIULIA Attending Unavailable JAVAN, GIULIA Attending Unavailable JAVAN, GIULIA Attending Unavailable JAVAN, GIULIA Attending Unavailable JAVAN, GIULIA Attending Unavailable SOL, MARGRET Attending Unavailable JAVAN, GIULIA Attending Unavailable SOL, MARGRET Attending Unavailable JAVAN, GIULIA Attending Unavailable JAVAN, GIULIA Attending Unavailable Medications Current Medications Medication Drug [...] Discontinued meclizine hydrochloride 12.5 mg oral tablet (20 sources) Antiemetic Start: 10-14-2024 take 1 tablet by mouth three times daily as needed for nausea meclizine (Antivert) 12.5 MG tablet Indications: Nausea Take 1 tablet (12.5 mg) by mouth 3 (three) times a day as needed for dizziness or nausea for up to 30 doses 30 tablet 2 10/14/2024 Active methylPREDNISolone (20 sources) Corticosteroid Start: 01-27-2025 methylPREDNISolone (Medrol Dospak) 4 MG tablets Indications: Contact dermatitis, unspecified contact dermatitis type, unspecified trigger Day 1: 6 tablets Day 2: 5 tablets Day 3: 4 tablets Day 4: 3 tablets Day 5: 2 tablets Day 6: 1 tablet 21 tablet 01/27/2025 Active Start: 12-17-2023 End: 08-10-2024 methylPREDNISolone (Medrol D ospak) 4 MG tablets Indications: Acute sinusitis, recurrence not specified, unspecified location Day 1: 6 tablets Day 2: 5 tablets Day 3: 4 tablets Day 4: 3 tablets Day 5: 2 tablets Day 6: 1 tablet 21 tablet 12/17/2023 08/10/2024 Discontinued (Therapy completed) metroNIDAZOLE 500 mg oral tablet (7 sources) Nitroimidazole Antimicrobial Start: 02-09-2025 End: 02-16-2025 take 1 tablet by mouth in the morning metroNIDAZOLE (Flagyl) 500 MG tablet Indications: Vaginal discharge during in third trimester Take 1 tablet (500 mg) by mouth in the morning and 1 tablet (500 mg) before bedtime. Do all this for 7 days. 14 tablet 02/09/2025 02/16/2025 Active Start: 11-03-2024 End: 11-17-2024 take 1 tablet [...] capsule by mouth in the morning nitrofurantoin, macrocrystal-monohydrate, (Macrobid) 100 MG capsule Indications: Hematuria, unspecified type Take 1 capsule (100 mg) by mouth in the morning and 1 capsule (100 mg) before bedtime. Do all this for 7 days. 14 capsule 11/03/2024 11/17/2024 Discontinued omeprazole 20 mg delayed release oral tablet (20 sources) Proton Pump Inhibitor Start: 12-15-2024 End: 12-15-2025 take 1 tablet by mouth before mealtime omeprazole OTC (PriLOSEC OTC) 20 MG EC tablet Indications: Heartburn during , antepartum ([facility]) Take 1 tablet (20 mg) by mouth in the morning. Take before meals. Do not crush, chew, or split.. 30 tablet 11 12/15/2024 12/15/2025 Active Vit-Fe Fumarate-FA ( VITAMINS PO) (20 sources) Start: 06-22-2024 Vit-Fe Fumarate-FA ( VITAMINS PO) 06/22/2024 Active promethazine hydrochloride 12.5 mg oral tablet (20 sources) Phenothiazine Start: 08-24-2024 take 1 tablet [...] oral tablet (2 sources) Progestin, Estrogen Start: 04-21-2024 End: 08-10-2024 desogestrel-ethinyl estradiol (Apri) 0.15-30 MG-MCG tablet Indications: Uses control Take 1 tablet by mouth Daily 28 tablet 12 04/21/2024 08/10/2024 Discontinued (Therapy completed) etodolac 200 mg oral capsule (2 sources) Nonsteroidal Anti-inflammatory Drug Start: 08-02-2024 End: 08-10-2024 take 1 capsule by mouth every six hours etodolac (Lodine) 200 MG capsule Indications: Inflammation around joint TAKE 1 CAPSULE BY MOUTH EVERY 6 HOURS IF NEEDED (INFLAMATION) 120 capsule 08/02/2024 08/10/2024 Discontinued (Therapy completed) fluconazole 150 mg oral tablet (2 sources) Azole Antifungal Start: 10-22-2023 End: 08-10-2024 fluconazole (Diflucan) 150 MG tablet Indications: Yeast infection 1 tablet PO day one; then 72 hours later take 2nd pill PO 2 tablet 1 10/22/2023 08/10/2024 Discontinued (Therapy completed) ibuprofen 800 mg oral tablet (2 sources) Nonsteroidal Anti-inflammatory Drug Start: 02-13-2024 End: 08-10-2024 take 1 tablet by mouth every eight hours as needed for pain and headache and headache ibuprofen 800 MG tablet Indications: Nonintractable episodic headache, unspecified headache type Take 1 tablet (800 mg) by mouth every 8 (eight) hours if needed for mild pain for up to 30 doses 30 tablet 02/13/2024 08/10/2024 Discontinued (Therapy completed) Problems Active Problems Problem Classification Problem Date Documented Date Episodic/Chronic Cardiac dysrhythmias (2 sources) Palpitations; Translations: [Palpitations] Onset: 01-28-2025 Episodic Genitourinary symptoms and ill-defined conditions (7 sources) [...] menstruation, unspecified] 09-10-2024 Chronic Other complications of (6 sources) Vaginal discharge; Translations: [Other specified related conditions, second trimester] 11-03-2024 Episodic Other complications of (2 sources) Excessive growth affecting management of mother; Translations: [Maternal care for excessive growth, unspecified trimester, not applicable or unspecified] 12-28-2024 Episodic Other connective tissue disease (1 source) Myalgia, other site; Translations: [MYALGIA OTHER SITE] Onset: 10-23-2022 Episodic Other lower respiratory disease (2 sources) Other forms of dyspnea; Translations: [Other forms of dyspnea] Onset: 01-28-2025 Episodic Other and delivery including normal (20 sources) Single live ; Translations: [] Onset: 04-08-2022 09-10-2024 Episodic Other screening for suspected conditions (not mental disorders or infectious disease) (20 sources) Encounter for screening for Streptococcus B; Translations: [Encounter for screening for diabetes mellitus] Onset: 11-19-2021 Episodic Other upper respiratory infections (4 sources) Chronic sinusitis, unspecified; Translations: [CHRONIC SINUSITIS UNSPECIFIED] Onset: 10-17-2022 Chronic Residual codes; unclassified (1 source) Gestation period, [...] [18 weeks gestation of ] 11-17-2024 Episodic Residual codes; unclassified (2 sources) Gestation period, 24 weeks; Translations: [24 weeks gestation of ] 12-28-2024 Episodic Residual codes; unclassified (2 sources) Gestation period, 27 weeks; Translations: [27 weeks gestation of ] 01-19-2025 Episodic Residual codes; unclassified (2 sources) Gestation period, 30 weeks; Translations: [30 weeks gestation of ] 02-09-2025 Episodic Residual codes; unclassified (2 sources) Gestation period, 32 weeks; Translations: [32 weeks gestation of ] 02-23-2025 Episodic Residual codes; unclassified (2 sources) Gestation period, 34 weeks; Translations: [34 weeks gestation of ] 03-09-2025 Episodic Residual codes; unclassified (4 sources) Gestation period, 36 weeks; Translations: [36 weeks gestation of ] 03-16-2025 Episodic Residual codes; unclassified (2 sources) Gestation period, 37 weeks; Translations: [37 weeks gestation of ] 03-30-2025 Episodic Residual codes; unclassified (2 sources) Gestation period, 38 weeks; Translations: [38 weeks gestation of ] 04-06-2025 Episodic Spondylosis; intervertebral disc disorders; other back [...] HAND FINGERS INIT] Onset: 11-21-2021 Episodic Other upper respiratory infections (20 sources) Acute sinusitis; Translations: [Acute sinusitis, unspecified] Onset: 09-24-2024 09-24-2024 Episodic Residual codes; unclassified (1 source) 39 [...] Test Name Value Interpretation Reference Range Facility Urinalysis macro (dipstick) panel (U)on 04-06-2025 Bilirubin, UA Moderate Negative - 4(70) +++ mg/dL [facility] Blood, UA Negative Negative - 50 Som/mcL [facility] Clarity, UA Clear [facility] Color, UA Yellow [facility] Glucose, UA Negative Negative - 1999(110) ++++ mg/dL [facility] Interpretation and review of laboratory results Abnormal [facility] re Ketones, UA Negative Negative - 160(16) ++++ mg/dL [facility] Leukocytes, UA Moderate Negative - 500+++ Eric/mcL [facility] Nitrite, UA Negative Negative - Positive [facility] pH, UA 8.5 5 - 9 [facility] Protein, UA Trace Negative - 1999(20) ++++ mg/dL [facility] Spec Grav, UA 1.01 1 - 1.03 [facility] care Urobilinogen, UA 0.2 0.2 - 12 mg/dL [facility] Urinalysis macro (dipstick) panel (U)on 03-23-2025 Bilirubin, UA Negative Negative - 4(70) +++ mg/dL [facility] Blood, UA Negative Negative - 50 Som/mcL [facility] Clarity, UA Clear [facility] Color, UA Yellow [facility] Glucose, UA Negative Negative - 1999(110) ++++ mg/dL [facility] Interpretation and review of laboratory results Abnormal [facility] Ketones, UA Negative Negative - 160(16) ++++ mg/dL [facility] Leukocytes, UA Positive Negative - 500+++ Eric/mcL [facility] Nitrite, UA Negative Negative - Positive [facility] pH, UA 7 5 - 9 [facility] Protein, UA Negative Negative - 1999(20) ++++ mg/dL [facility] Healthcare Spec Grav, UA 1.015 1 - 1.03 [facility] care Urobilinogen, UA 1.0 0.2 - 12 mg/dL [facility] Urinalysis macro (dipstick) panel (U)on 03-16-2025 Bilirubin, UA Negative Negative - 4(70) +++ mg/dL [facility] Blood, UA Negative Negative - 50 Som/mcL [facility] Clarity, UA Clear [facility] Color, UA Yellow [facility] Glucose, UA Negative Negative - 1999(110) ++++ mg/dL [facility] Interpretation and review of laboratory results Abnormal [facility] Ketones, UA Negative Negative - 160(16) ++++ mg/dL [facility] Leukocytes, UA Positive Negative - 500+++ Eric/mcL [facility] Comment on above: small Nitrite, UA Negative Negative - Positive [facility] pH, UA 6 5 - 9 [facility] Protein, UA Negative Negative - 1999(20) ++++ mg/dL [facility] Spec Grav, UA 1.025 1 - 1.03 [facility] care Urobilinogen, UA 1.0 0.2 - 12 mg/dL [facility] Urinalysis macro (dipstick) panel (U)on 03-09-2025 Bilirubin, UA Negative Negative - 4(70) +++ mg/dL [facility] Blood, UA Positive Negative - 50 Som/mcL [facility] Healthcare Comment on above: Trace-intact Clarity, UA Cloudy [facility] Color, UA Yellow [facility] Glucose, UA Negative Negative - 1999(110) ++++ mg/dL [facility] Interpretation and review of laboratory results Abnormal [facility] Ketones, UA Negative Negative - 160(16) ++++ mg/dL [facility] Leukocytes, UA Positive Negative - 500+++ Eric/mcL [facility] Comment on above: Small Nitrite, UA Negative Negative - Positive [facility] pH, UA 7 5 - 9 [facility] Protein, UA Negative Negative - 1999(20) ++++ mg/dL [facility] Spec Grav, UA 1.025 1 - 1.03 [facility] Urobilinogen, UA 1.0 0.2 - 12 mg/dL [facility] Urinalysis macro (dipstick) panel (U)Ordered By: Kaya Oh on 02-23-2025 Bilirubin, UA Negative Negative - 4(70) +++ mg/dL [facility] Blood, UA Positive Negative - 50 Som/mcL [facility] Clarity, UA Clear [facility] Color, UA Yellow [facility] Glucose, UA Negative Negative - 1999(110) ++++ mg/dL [facility] Interpretation and review of laboratory results Abnormal [facility] Ketones, UA Negative Negative - 160(16) ++++ mg/dL [facility] Leukocytes, UA Negative Negative - 500+++ Eric/mcL [facility] Nitrite, UA Negative Negative - Positive [facility] pH, UA 6.5 5 - 9 [facility] Protein, UA Many Negative - 1999(20) ++++ mg/dL [facility] Spec Grav, UA 1.025 1 - 1.03 [facility] Urobilinogen, UA 2.0 0.2 - 12 mg/dL [facility] US OB LIMITED 1+ FETUSESon 0 02-16-2025 US OB LIMITED 1+ FETUSES EXAM: US OB LIMITED 1+ FETUSES HISTORY: [...] II, MD, PHD at 16-Feb-2025 11:19:13 PM [facility] Normal Not Available Comment on above: Order Comment: US OB AMNIOTIC FLUID VOLUME Estimated Date of Delivery: 04/14/25 Gestational Age as of 02/09/2025: 30w6d Urinalysis macro (dipstick) panel (U)on 02-09-2025 Bilirubin, UA Negative Negative - 4(70) +++ mg/dL [facility] Blood, UA Negative Negative - 50 Som/mcL [facility] Clarity, UA Cloudy [facility] Color, UA Marichuy [facility] Glucose, UA Negative Negative - 1999(110) ++++ mg/dL [facility] Interpretation and review of laboratory results Abnormal [facility] Ketones, UA Negative Negative - 160(16) ++++ mg/dL [facility] Leukocytes, UA Positive Negative - 500+++ Eric/mcL [facility] Nitrite, UA Negative Negative - Positive [facility] pH, UA 7.5 5 - 9 [facility] [employer] Protein, UA Positive Negative - 1999(20) ++++ mg/dL [facility] Spec Grav, UA 1.025 1 - 1.03 [facility] care Urobilinogen, UA 2.0 0.2 - 12 mg/dL [facility] US OB FOLLOW UP TRANSABDOMIN AL APPROACHon 02-03-2025 US OB FOLLOW UP TRANSABDOMINAL APPROACH EXAM: US OB FOLLOW UP TRANSABDOMINAL APPROACH [...] II, MD, PHD at 04-Feb-2025 10:12:11 AM [facility] Normal Not Available Comment on above: Order Comment: US OB SCAN FOR GROWTH Estimated Date of Delivery: 04/14/25 Gestational Age as of 12/28/2024: 24w5d Office Visiton 01-28-2025 Follow-up visit [id number] Sidra Ortega 1995 F Date Provider Department Center 01/28/2025 [id number] REDD [facility] Family History Problem Relation Age of Onset Arrhythmia Mother Family Status - Relation Status Age at Mother Alive Father Alive Brother Alive Level of Service:92148 [place] OFFICE/OUTPATIENT NEW MODERATE MDM 45 MINUTES Reason for Visit and Comments: Palpitations [103673] Dizziness [953043] Excessive Sweating [[id number]] Normal [facility] Urinalysis macro (dipstick) panel (U)on 01-19-2025 Bilirubin, UA Negative Negative - 4(70) +++ mg/dL [facility] Blood, UA Negative Negative - 50 Som/mcL [facility] Healthcare Clarity, UA Clear [facility] Color, UA Yellow [facility] Glucose, UA Negative Negative - 1999(110) ++++ mg/dL [facility] Interpretation and review of laboratory results Abnormal [facility] Ketones, UA Negative Negative - 160(16) ++++ mg/dL [facility] Healthcare Leukocytes, UA Positive Negative - 500+++ Eric/mcL [facility] Nitrite, UA Negative Negative - Positive [facility] Healthcare pH, UA 6 5 - 9 [facility] Protein, UA Trace Negative - 1999(20) ++++ mg/dL [facility] Spec Grav, UA 1.02 1 - 1.03 [facility] care Urobilinogen, UA 1.0 0.2 - 12 mg/dL [facility] GLUCOSE 1 HOURon 01-18-2025 Glucose [Mass/Vol] 80 mg/dL NINF - 13 0 mg/dL [facility] Expreem e Urinalysis macro (dipstick) panel (U)on 12-28-2024 Bilirubin, UA Negative Negative - 4(70) +++ mg/dL [facility] Blood, UA Negative Negative - 50 Som/mcL [facility] Clarity, UA Clear [facility] [employer] re Color, UA Yellow [facility] Expreem e Glucose, UA Negative Negative - 1999(110) ++++ mg/dL [facility] Interpretation and review of laboratory results Abnormal [facility] [employer] re Ketones, UA Negative Negative - 160(16) ++++ mg/dL [facility] Leukocytes, UA Positive Negative - 500+++ Eric/mcL [facility] Comment on above: small Nitrite, UA Negative Negative - Positive [facility] pH, UA 1 5 - 9 [facility] Protein, UA Positive Negative - 1999(20) ++++ mg/dL [facility] Comment on above: 30mg Spec Grav, UA 1.025 1 - 1.03 [facility] Urobilinogen, UA 1.0 0.2 - 12 mg/dL [facility] V&V e US OB 14+ WEEKS ANATOMY SCAN on [...] II, MD, PHD at 01-Dec-2024 08:36:07 AM [facility] Normal Not Available Comment on above: Order Comment: US OB ANATOMY SINGLE W US OB CERVICAL LENGTH Estimated Date of Delivery: 04/14/25 Gestational Age as of 11/03/2024: 16w6d IGP,APTIMA HPV,AGE GDLNon AGE GDLN ACOG TESTING Note . [facility] Healthcare Comment on above: TESTS RESULT FLAG UN ITS REF RANGE LAB Clinician Provided Cytology Information Source.............Cervix Other.............. No. of containers..01 ThinPrep Vial Age Algo ACOG Sunita... 30 FLAG LEGEND: L-Low Normal,H-High Normal,LL-Alert Low,HH-Alert High <-Panic Low,>-Panic High,A-Abnormal,AA-Critical Abnormal Performed at: 01 =[address] [id number] Senait Shook MD, HPV APTIMA Negative Negative [facility] Comment on above: This nucleic acid am plification test detects fourteen high- risk HPV types (16,18,31,33,35,39,45,51,52,56,58,59,66,68) without differentiation. Performed at: =[facility] [id number] Breakfast Server: Senait Shook MD, Phone: [phone] Performed at: [facility] [id number] Breakfast Server: Senait Shook MD, Phone: [phone] IGP, APTIMA HPV, RFX 16/18,45 Note . [facility] Comment on above: TESTS RESULT FLAG UN ITS REF RANGE LAB DIAGNOSIS: 02 NEGATIVE FOR INTRAEPITHELIAL LESION OR MALIGNANCY. THIS SPECIMEN WAS RESCREENED PART OF OUR [employer] LINGUIST PROGRAM. Specimen adequacy: 02 Satisfactory for evaluation. No endocervical component is identified. An endocervical component is not commonly seen in the patient. Performed by: Lorraine Sorenson Flavor Room Worker QC reviewed by: Lorraine Leung Flavor Room Worker ([facility]) . 02 Note: Note 02 The Pap [...] <-Panic Low,>-Panic High,A-Abnormal,AA-Critical Abnormal Performed at: [address] [id number] Senait Shook MD, SPATULA-ALONE CERVIX [facility] No Panel Informationon 11-16 STAPHYLOCOCCUS EPIDERMIDIS, HAEMOLYTICUS, LUGDUNENSIS, SAPROPHYTICUS (URINA 0 [facility] Healthcare STAPHYLOCOCCUS EPIDERMIDIS, HAEMOLYTICUS, LUGDUNENSIS, SAPROPHYTICUS (URINA Not detected [facility] URINARY TRACT INFECTION (HTR X)on 11-16-2024 ACINETOBACTER BAUMANII 0 [facility] ACINETOBACTER BAUMANII Not detected [facility] Healthcare JAKE ALBICANS, PARAPSILOSIS, TROPICALIS 0 [facility] JAKE ALBICANS, PARAPSILOSIS, TROPICALIS Not detected [facility] GLAB[facility]ATA Not detected [facility] ealthcare JAKE KRUSEI 0 [facility] JA[facility] KRUSEI Not [facility] CITROBACTER FREUNDII 0 [facility] Healthcare CITROBACTER FREUNDII Not detected [facility] Healthcare ENTEROBACTER AEROGENES, CLOACAE 0 [facility] re ENTEROBACTER AEROGENES, CLOACAE Not detected [facility] re ENTEROCOCCUS FAECALIS, FAECIUM 0 [facility] ENTEROCOCCUS FAECALIS, FAECIUM Not detected [facility] ESCHERICHIA COLI [facility] ESCHERICHIA COLI Not detected [facility] KLEBSIELLA PNEUMONIAE, OXYTOCA 0 [facility] are KLEBSIELLA PNEUMONIAE, OXYTOCA Not detected [facility] are MORGANELLA MORGANII 0 [facility] MORGANELLA MORGANII Not detected [facility] PROTEUS MIRABILIS, VULGARIS 0 [facility] PROTEUS MIRABILIS, VULGARIS Not detected [facility] PSEUDOMONAS AERUGINOSA 0 [facility] PSEUDOMONAS AERUGINOSA Not detected [facility] SERRATIA MARCESCENS 0 [facility] SERRATIA MARCESCENS Not detected [facility] STAPHYLOCOCCUS AUREUS 0 [facility] STAPHYLOCOCCUS AUREUS Not detected [facility] STREPTOCOCCUS AGALACTIAE (GROUP B STREP) 0 [facility] STREPTOCOCCUS AGALACTIAE (GROUP B STREP) Not detected [facility] STREPTOCOCCUS PYOGENES (GROUP A STREP) 0 [facility] STREPTOCOCCUS PYOGENES (GROUP A STREP) Not detected [facility] CARDIOCHECK - LIPID AND GLUC OSEon 11-09-2024 Cholesterol [Mass/Vol] 209 mg/dL NINF - 200 [facility] Cholesterol in HDL [Mass/Vol] 64 mg/dL M: 35-65 F: 35-80 [facility] Cholesterol in LDL [Mass/Vol] 108 mg/dL NINF - 100 [facility] Glucose [Mass/Vol] 98 mg/dL [facility] Interpretation and review of laboratory results Abnormal [facility] Triglyceride [Mass/Vol] 185 mg/dL NINF - 150 [facility] Urinalysis macro (dipstick) panel (U)on 11-03-2024 Bilirubin, UA Few Negative - 4(70) +++ mg/dL [facility] Blood, UA Positive Negative - 50 Som/mcL [facility] Color, UA Marichuy [facility] Glucose, UA Negative Negative - 1999(110) ++++ mg/dL [facility] Interpretation and review of laboratory results Abnormal [facility] Ketones, UA Negative Negative - 160(16) ++++ mg/dL [facility] Leukocytes, UA Negative Negative - 500+++ Eric/mcL [facility] Nitrite, UA Negative Negative - Positive [facility] pH, UA 5.5 5 - 9 [facility] Protein, UA Positive Negative - 1999(20) ++++ mg/dL [facility] Spec Grav, UA 1.03 1 - 1.03 [facility] Urobilinogen, UA 1.0 0.2 - 12 mg/dL [facility] Urinalysis macro (dipstick) panel (U)on 10-06-2024 Bilirubin, UA Negative Negative - 4(70) +++ mg/dL [facility] Blood, UA Negative Negative - 50 Som/mcL [facility] Clarity, UA Clear [facility] Color, UA Yellow [facility] Glucose, UA Negative Negative - 1999(110) ++++ mg/dL [facility] Interpretation and review of laboratory results Normal [facility] Ketones, UA Negative Negative - 160(16) ++++ mg/dL [facility] Leukocytes, UA Negative Negative - 500+++ Eric/mcL [facility] Nitrite, UA Negative Negative - Positive [facility] pH, UA 5.5 5 - 9 [facility] Protein, UA Negative Negative - 1999(20) ++++ mg/dL [facility] Spec Grav, UA 1.03 1 - 1.03 [facility] Urobilinogen, UA 1.0 0.2 - 12 mg/dL [facility] BOX TESTon 10-01-2024 BOX TEST SENT OUT [facility] BOX1 [facility] BOX2 10/01/2024 [facility] HCG ( test) Ql (U)o n 09-10-2024 Interpretation and review of laboratory results Abnormal [facility] Preg Test, Ur Positive Negative [facility] care [facility] [place] [facility] Urinalysis macro (dipstick) panel (U)on 09-10-2024 Bilirubin, UA Negative Negative - 4(70) +++ mg/dL [facility] Blood, UA Positive Negative - 50 Som/mcL [facility] Comment on above: small Clarity, UA Clear [facility] Color, UA Yellow [facility] Glucose, UA Negative Negative - 1999(110) ++++ mg/dL [facility] Interpretation and review of laboratory results Abnormal [facility] Ketones, UA Negative Negative - 160(16) ++++ mg/dL [facility] Leukocytes, UA Trace Negative - 500+++ Eric/mcL [facility] Nitrite, UA Negative Negative - Positive [facility] pH, UA 5.5 5 - 9 [facility] Protein, UA Negative Negative - 2000(20) ++++ mg/dL [facility] Spec Grav, UA 1.025 1 - 1.03 [facility] Urobilinogen, UA 0.2 0.2 - 12 mg/dL [facility] Cytology Cervical or vaginal smear or scraping studyOrdered By: Jaimee Beckman on 08-11-2023 [facility] CBC AUTO DIFFon 10-21-2022 BASO # 0.0 103/ul Normal 0.0-0.1 [facility] Comment on above: Performed By: #### C BC #### [facility] [address] [place] [address] Dr. Diann Dickerson Basophils/100 WBC (Bld) 0.4 % Normal 0.2-2.0 [facility] Comment on above: Performed By: #### C BC #### [facility] [address] [place] [address] Dr. Diann Dickerson EO # 0.0 103/ul Normal 0.0-0.7 [facility] Comment on above: Performed By: #### C BC #### [facility] [address] [address] [address] Diann Dickerson Eosinophils/100 WBC (Bld) 0.8 % Critically low 0.9-7.0 [facility] Comment on above: Performed By: #### C BC #### [facility] [address] [address] [address] Diann Dickerson Erythrocyte distribution width (RBC) [Ratio] 11.0 % Normal 11.0-15.0 [facility] Comment on above: Performed By: #### C BC #### [facility] [address] [place] [address] Dr. Diann Dickerson Hematocrit (Bld) [Volume fraction] 38.0 % Normal 36.0-48.0 [facility] Comment on above: Performed By: #### C BC #### [facility] [address] [place] [address] Dr. Diann Dickerson Hemoglobin (Bld) [Mass/Vol] 13.6 g/dL Normal 12.0-16.0 [facility] Comment on above: Performed By: #### C BC #### [facility] [address] [place] [address] Dr. Diann Dickerson IG # 0.02 10e3/ul Normal 0.00-0.03 [facility] Comment on above: Performed By: #### C BC #### [facility] [address] [place] [address] Dr. Diann Dickerson IG % 0.4 % Normal 0.0-0.5 [facility] Comment on above: Performed By: #### C BC #### [facility] [address] [place] [address] Dr. Diann Dickerson LYMPH # 2.0 103/ul Normal 1.2-3.8 [facility] Comment on above: Performed By: #### C BC #### [facility] [address] [place] [address] Dr. Diann Dickerson Lymphocytes/100 WBC (Bld) 38.2 % Normal 20.5-60.0 [facility] Comment on above: Performed By: #### C BC #### [facility] [address] [place] [address] Dr. Diann Dickerson MANUAL DIFF REQ NO Normal [facility] Comment on above: Performed By: #### C BC #### [facility] [address] [place] [address] Dr. Diann Dickerson MCH (RBC) [Entitic mass] 31.6 pg Normal 26.7-34.0 [facility] Comment on above: Performed By: #### C BC #### [facility] [address] [place] [address] Dr. Diann Dickerson MCHC (RBC) [Mass/Vol] 35.8 g/dL Critically high 29.9-35.2 [facility] Comment on above: Performed By: #### C BC #### [facility] [address] [place] [address] Dr. Diann Dickerson MCV (RBC) [Entitic vol] 88.2 fL Normal 81.0-99.0 [facility] Comment on above: Performed By: #### C BC #### [facility] [address] [place] [address] Dr. Diann Dickerson MONO # 0.4 103/ul Normal 0.3-0.8 [facility] Comment on above: Performed By: #### C BC #### [facility] [address] [place] [address] Dr. Diann Dickerson Monocytes/100 WBC (Bld) 7.7 % Normal 1.7-12.0 [facility] Comment on above: Performed By: #### C BC #### [facility] [address] [place] [address] Dr. Diann Dickerson NEUT # 2.7 103/ul Normal 1.4-6.5 [facility] Comment on above: Performed By: #### C BC #### [facility] [address] [place] [address] Dr. Diann Dickerson Neutrophils/100 WBC (Bld) 52.5 % Normal 43.0-75.0 [facility] Comment on above: Performed By: #### C BC #### [facility] [address] [place] [address] Dr. Diann Dickerson Platelet mean volume (Bld) [Entitic vol] 10.3 fL Normal 9.5-13.5 [facility] Comment on above: Performed By: #### C BC #### [facility] [address] [place] [address] Dr. Diann Dickerson PLT 251 103/ul Normal 150-450 [facility] Comment on above: Performed By: #### C BC #### [facility] [address] [place] [address] Dr. Diann Dickerson RBC 4.31 106/ul Normal 4.20-5.40 [facility] Comment on above: Performed By: #### C BC #### [facility] [address] [place] [address] Dr. Diann Dickerson WBC 5.2 103/ul Normal 4.0-11.0 [facility] Comment on above: Performed By: #### C BC #### [facility] [address] [address] [address] Diann DICKEY URINE PROFILEon 3 Bilirubin Ql (U) Negative Normal NEGATIVE [facility] Comment on above: Performed By: #### P REGU, ERUR #### [facility] [address] [address] [address] Diann Dickerson Clarity (U) CLEAR Normal CLEAR [facility] Comment on above: Performed By: #### P REGU, ERUR #### [facility] [address] [place] [address] Dr. Diann Dickerson Color (U) YELLOW Normal YELLOW [facility] Comment on above: Performed By: #### P REGU, ERUR #### [facility] [address] [place] [address] Dr. Diann MCCALLUM A micrscopic examination will be performed if indicated. Normal [facility] Comment on above: Performed By: #### P REGU, ERUR #### [facility] [address] [place] [address] Dr. Diann Dickerson Glucose Ql (U) Negative Normal NEGATIVE [facility] Comment on above: Performed By: #### P REGU, ERUR #### [facility] [address] [place] [address] Dr. Diann Dickerson Hemoglobin Ql (U) Negative Normal NEGATIVE [facility] Comment on above: Performed By: #### P REGU, ERUR #### [facility] [address] [place] [address] Dr. Diann Dickerson Ketones Ql (U) Negative Normal NEGATIVE [facility] Comment on above: Performed By: #### P REGU, ERUR #### [facility] [address] [place] [address] Dr. Diann Dickerson LEUKOCYTES Negative Normal NEGATIVE [facility] Comment on above: Performed By: #### P REGU, ERUR #### [facility] [address] [place] [address] Dr. Diann Dickerson Nitrite Ql (U) Negative Normal NEGATIVE [facility] Comment on above: Performed By: #### P REGU, ERUR #### [facility] [address] [place] [address] Dr. Diann Dickerson pH (U) 6.0 [pH] Normal 5-9 [facility] Comment on above: Performed By: #### P REGU, ERUR #### [facility] [address] [place] [address] Dr. Diann Dickerson SPEC GRAVITY 1.015 Normal 1.005-<=1.025 [facility] Comment on above: Performed By: #### P REGU, ERUR #### [facility] [address] [place] [address] Dr. Diann Dickerson UA PROTEIN Negative Normal NEGATIVE/ TRACE [facility] Comment on above: Performed By: #### P REGU, ERUR #### [facility] [address] [place] [address] Dr. Diann Dickerson UR MICRO IND NOT INDICATED Normal [facility] Comment on above: Performed By: #### P REGU, ERUR #### [facility] [address] [place] [address] Dr. Diann Dickerson Urobilinogen Qn (U) 1.0 {Guy'U}/dL Normal 0.2 - 1. 0 [facility] Comment on above: Performed By: #### P REGU, ERUR #### [facility] [address] [place] [address] Dr. Diann Dickerson GROUP A STREP CULTUREon 09-24 S. pyogenes Ag Ql (Unsp spec) Culture Observations: NEGATIVE FOR GROUP A STREPTOCOCCUS. Normal [facility] Comment on above: Performed By: #### G RASTCX, SSCRN #### [facility] [address] [place] [address] Dr. Diann Dickerson URon 10-21-2022 , QUAL Negative Normal NEGATIVE [facility] Comment on above: Performed By: #### P REGU, ERUR #### [facility] [address] [place] [address] Dr. Diann Dickerson PROF CHEM 8 (BAS METB)on Anion gap [Moles/Vol] 12.1 mmol/L Normal [facility] Comment on above: Performed By: #### C BC #### [facility] [address] [address] [address] Diann Dickerson Calcium [Mass/Vol] 9.3 mg/dL Normal 8.5-10.1 [facility] Comment on above: Performed By: #### C BC #### [facility] [address] [address] [address] Diann Dickerson Chloride [Moles/Vol] 101 mmol/L Normal 98-107 [facility] Comment on above: Performed By: #### C BC #### [facility] [address] [place] [address] Dr. Diann Dickerson CO2 [Moles/Vol] 28.3 mmol/L Normal 21.0-32.0 [facility] Comment on above: Performed By: #### C BC #### [facility] [address] [place] [address] Dr. Diann Dickerson Creatinine [Mass/Vol] 0.61 mg/dL Normal 0.55-1.02 [facility] Comment on above: Performed By: #### C BC #### [facility] [address] [place] [address] Dr. Diann Dickerson EGFR-AF JORDANIAN >60 Normal >=60 [facility] Comment on above: Performed By: #### C BC #### [facility] [address] [place] [address] Dr. Diann Dickerson EGFR-NON AF JORDANIAN >60 Normal >=60 [facility] Comment on above: Performed By: #### C BC #### [facility] [address] [place] [address] Dr. Diann Dickerson Glucose [Mass/Vol] 122 mg/dL Critically high 74-106 [facility] Comment on above: Performed By: #### C BC #### [facility] [address] [place] [address] Dr. Diann Dickerson Potassium [Moles/Vol] 3.4 mmol/L Critically low 3.5-5.1 [facility] Comment on above: Performed By: #### C BC #### [facility] [address] [place] [address] Dr. Diann Dickerson Sodium [Moles/Vol] 138 mmol/L Normal 136-145 [facility] Comment on above: Performed By: #### C BC #### [facility] [address] [address] [address] Diann Dickerson Urea nitrogen [Mass/Vol] 5.0 mg/dL Critically low 7.0-18.0 [facility] Comment on above: Performed By: #### C BC #### [facility] [address] [place] [address] Dr. Diann Dickerson Urea nitrogen/Creatinine [Mass ratio] 8.2 mg/mg Normal [facility] Comment on above: Performed By: #### C BC #### [facility] [address] [place] [address] Dr. Diann Dickerson STREPT SCREENon 10-21-2022 STREP SCREEN A Negative Normal NEGATIVE [facility] Comment on above: Performed By: #### G RASTCX, SSCRN #### [facility] [address] [place] [address] Dr. Diann Dickerson Covid-19 PCR (CVDTB)on 09-23 SARS-CoV-2 (COVID-19) RNA PREMA+probe Ql (Unsp spec) Not detected Normal NOT DETECTED [facility] Comment on above: Result Comment: This test is not yet approved or cleared by the [place] FDA. When there are no FDA-approved or cleared tests available, and other criteria are met, FDA can make tests available under an emergency access mechanism called an Emergency Use Authorization (EUA). The EUA for this test is supported by the [employer] of Health and Human Service's (HHS's) declaration [...] SARS-CoV-2. Performed By: #### C VDTBH #### [facility] [address] [place] [address] Dr. Diann Dickerson INFLUENZA A AND B AGon 10-17 [facility] SEE BELOW Normal [facility] Comment on above: Result Comment: Nega tive for Flu A protein angiten. Infection due to Flu A cannot be ruled out. Flu A angiten in the sample may be below the detection limit of the test. Performed By: #### U ACSIND #### [facility] [address] [place] [address] Dr. Diann Dickerson [facility] SEE BELOW Normal [facility] Comment on above: Result Comment: Nega tive for Flu B protein antigen. Infection due to Flu B cannot be ruled out. Flu B antigen in the sample may be below the detection limit of the test. Performed By: #### U ACSIND #### [facility] [address] [place] [address] Dr. Diann Dickerson INFLUENZA A AG Negative Normal NEGATIVE SEE COMMENT [facility] Comment on above: Performed By: #### U ACSIND #### [facility] [address] [place] [address] Dr. Diann Dickerson INFLUENZA B AG Negative Normal NEGATIVE SEE COMMENT [facility] Comment on above: Performed By: #### U ACSIND #### [facility] [address] [place] [address] Dr. Diann Dickerson CBC AUTO DIFFon 04-02-2022 BASO # 0.0 103/ul Normal 0.0-0.1 [facility] Comment on above: Performed By: #### C VDTBH #### [facility] [address] [place] [address] Dr. Diann Dickerson Basophils/100 WBC (Bld) 0.4 % Normal 0.2-2.0 [facility] Comment on above: Performed By: #### C VDTBH #### [facility] [address] [place] [address] Dr. Diann Dickerson EO # 0.1 103/ul Normal 0.0-0.7 [facility] Comment on above: Performed By: #### C VDTBH #### [facility] [address] [place] [address] Dr. Diann Dickerson Eosinophils/100 WBC (Bld) 0.6 % Critically low 0.9-7.0 [facility] Comment on above: Performed By: #### C VDTBH #### [facility] [address] [place] [address] Dr. Diann Dickerson Erythrocyte distribution width (RBC) [Ratio] 12.3 % Normal 11.0-15.0 [facility] Comment on above: Performed By: #### C VDTBH #### [facility] [address] [place] [address] Dr. Diann Dickerson Hematocrit (Bld) [Volume fraction] 35.5 % Critically low 36.0-48.0 [facility] Comment on above: Performed By: #### C VDTBH #### [facility] [address] [place] [address] Dr. Diann Dickerson Hemoglobin (Bld) [Mass/Vol] 12.3 g/dL Normal 12.0-16.0 [facility] Comment on above: Performed By: #### C VDTBH #### [facility] [address] [place] [address] Dr. Diann Dickerson IG # 0.07 10e3/ul Critically high 0.00-0.03 [facility] Comment on above: Performed By: #### C VDTBH #### [facility] [address] [place] [address] Dr. Diann Dickerson IG % 0.7 % Critically high 0.0-0.5 [facility] Comment on above: Performed By: #### C VDTBH #### [facility] [address] [place] [address] Dr. Diann Dickerson LYMPH # 1.3 103/ul Normal 1.2-3.8 [facility] Comment on above: Performed By: #### C VDTBH #### [facility] [address] [place] [address] Dr. Diann Dickerson Lymphocytes/100 WBC (Bld) 13.9 % Critically low 20.5-60.0 [facility] Comment on above: Performed By: #### C VDTBH #### [facility] [address] [place] [address] Dr. Diann Dickerson MANUAL DIFF REQ NO Normal [facility] Comment on above: Performed By: #### C VDTBH #### [facility] [address] [place] [address] Dr. Diann Dickerson MCH (RBC) [Entitic mass] 34.1 pg Critically high 26.7-34.0 [facility] Comment on above: Performed By: #### C VDTBH #### [facility] [address] [place] [address] Dr. Diann Dickerson MCHC (RBC) [Mass/Vol] 34.6 g/dL Normal 29.9-35.2 [facility] Comment on above: Performed By: #### C VDTBH #### [facility] [address] [place] [address] Dr. Diann Dickerson MCV (RBC) [Entitic vol] 98.3 fL Normal 81.0-99.0 [facility] Comment on above: Performed By: #### C VDTBH #### [facility] [address] [place] [address] Dr. Diann Dickerson MONO # 1.0 103/ul Critically high 0.3-0.8 [facility] Comment on above: Performed By: #### C VDTBH #### [facility] [address] [place] [address] Dr. Diann Dickerson Monocytes/100 WBC (Bld) 10.5 % Normal 1.7-12.0 [facility] Comment on above: Performed By: #### C VDTBH #### [facility] [address] [place] [address] Dr. Diann Dickerson NEUT # 6.9 103/ul Critically high 1.4-6.5 [facility] Comment on above: Performed By: #### C VDTBH #### [facility] [address] [place] [address] Dr. Diann Dickerson Neutrophils/100 WBC (Bld) 73.9 % Normal 43.0-75.0 [facility] Comment on above: Performed By: #### C VDTBH #### [facility] [address] [place] [address] Dr. Diann Dickerson Platelet mean volume (Bld) [Entitic vol] 10.8 fL Normal 9.5-13.5 [facility] Comment on above: Performed By: #### C VDTBH #### [facility] [address] [place] [address] Dr. Diann Dickerson PLT 177 103/ul Normal 150-450 [facility] Comment on above: Performed By: #### C VDTBH #### [facility] [address] [place] [address] Dr. Diann Dickerson RBC 3.61 106/ul Critically low 4.20-5.40 [facility] Comment on above: Performed By: #### C VDTBH #### [facility] [address] [place] [address] Dr. Diann Dickerson WBC 9.4 103/ul Normal 4.0-11.0 [facility] Comment on above: Performed By: #### C VDTBH #### [facility] [address] [place] [address] Dr. Diann Dickerson CBC AUTO DIFFon 04-01-2022 BASO # 0.0 103/ul Normal 0.0-0.1 [facility] Comment on above: Performed By: #### C BC #### [facility] [address] [place] [address] Dr. Diann Dickerson Basophils/100 WBC (Bld) 0.3 % Normal 0.2-2.0 [facility] Comment on above: Performed By: #### C BC #### [facility] [address] [place] [address] Dr. Diann Dickerson EO # 0.1 103/ul Normal 0.0-0.7 [facility] Comment on above: Performed By: #### C BC #### [facility] [address] [place] [address] Dr. iDann Dickerson Eosinophils/100 WBC (Bld) 0.6 % Critically low 0.9-7.0 [facility] Comment on above: Performed By: #### C BC #### [facility] [address] [place] [address] Dr. Diann Dickerson Erythrocyte distribution width (RBC) [Ratio] 12.4 % Normal 11.0-15.0 [facility] Comment on above: Performed By: #### C BC #### [facility] [address] [place] [address] Dr. Diann Dickerson Hematocrit (Bld) [Volume fraction] 38.0 % Normal 36.0-48.0 [facility] Comment on above: Performed By: #### C BC #### [facility] [address] [place] [address] Dr. Diann Dickerson Hemoglobin (Bld) [Mass/Vol] 13.1 g/dL Normal 12.0-16.0 [facility] Comment on above: Performed By: #### C BC #### [facility] [address] [place] [address] Dr. Diann Dickerson IG # 0.07 10e3/ul Critically high 0.00-0.03 [facility] Comment on above: Performed By: #### C BC #### [facility] [address] [place] [address] Dr. Diann Dickerson IG % 0.7 % Critically high 0.0-0.5 [facility] Comment on above: Performed By: #### C BC #### [facility] [address] [place] [address] Dr. Diann Dickerson LYMPH # 1.5 103/ul Normal 1.2-3.8 [facility] Comment on above: Performed By: #### C BC #### [facility] [address] [place] [address] Dr. Diann Dickerson Lymphocytes/100 WBC (Bld) 15.6 % Critically low 20.5-60.0 [facility] Comment on above: Performed By: #### C BC #### [facility] [address] [place] [address] Dr. Diann Dickerson MANUAL DIFF REQ NO Normal [facility] Comment on above: Performed By: #### C BC #### [facility] [address] [place] [address] Dr. Diann Dickerson MCH (RBC) [Entitic mass] 33.8 pg Normal 26.7-34.0 [facility] Comment on above: Performed By: #### C BC #### [facility] [address] [place] [address] Dr. Diann Dickerson MCHC (RBC) [Mass/Vol] 34.5 g/dL Normal 29.9-35.2 [facility] Comment on above: Performed By: #### C BC #### [facility] [address] [place] [address] Dr. Diann Dickerson MCV (RBC) [Entitic vol] 97.9 fL Normal 81.0-99.0 [facility] Comment on above: Performed By: #### C BC #### [facility] [address] [place] [address] Dr. Diann Dickerson MONO # 0.8 103/ul Normal 0.3-0.8 [facility] Comment on above: Performed By: #### C BC #### [facility] [address] [place] [address] Dr. Diann Dickerson Monocytes/100 WBC (Bld) 8.2 % Normal 1.7-12.0 [facility] Comment on above: Performed By: #### C BC #### [facility] [address] [place] [address] Dr. Diann Dickerson NEUT # 7.1 103/ul Critically high 1.4-6.5 [facility] Comment on above: Performed By: #### C BC #### [facility] [address] [place] [address] Dr. Diann Dickerson Neutrophils/100 WBC (Bld) 74.6 % Normal 43.0-75.0 [facility] Comment on above: Performed By: #### C BC #### [facility] [address] [place] [address] Dr. Diann Dickerson Platelet mean volume (Bld) [Entitic vol] 10.7 fL Normal 9.5-13.5 [facility] Comment on above: Performed By: #### C BC #### [facility] [address] [place] [address] Dr. Diann Dickerson PLT 172 103/ul Normal 150-450 [facility] Comment on above: Performed By: #### C BC #### [facility] [address] [place] [address] Dr. Diann Dickerson RBC 3.88 106/ul Critically low 4.20-5.40 [facility] Comment on above: Performed By: #### C BC #### [facility] [address] [place] [address] Dr. Diann Dickerson WBC 9.5 103/ul Normal 4.0-11.0 [facility] Comment on above: Performed By: #### C BC #### [facility] [address] [place] [address] Dr. Diann Dickerson [facility] SARS-CoV-2 (COVID-19) RNA PREMA+probe Ql (Unsp spec) Not detected Normal NOT DETECTED [facility] Comment on above: Result Comment: [...] for this test is supported by the Instructor Creeler of Health and Human Service's declaration that [...] used). Performed By: #### C VDTBH #### [facility] [address] [place] [address] Dr. Diann Dickerson DRUG SCREEN RAPID (URINE)on 04-01-2022 AMP Negative Normal NEGATIVE [facility] Comment on above: Performed By: #### C BC #### [facility] [address] [address] [address] Diann Dickerson BAR Negative Normal NEGATIVE [facility] Comment on above: Performed By: #### C BC #### [facility] [address] [place] [address] Dr. Diann Dickerson BUP Negative Normal NEGATIVE [facility] Comment on above: Performed By: #### C BC #### [facility] [address] [place] [address] Dr. Diann Dickerson BZO Negative Normal NEGATIVE [facility] Comment on above: Performed By: #### C BC #### [facility] [address] [place] [address] Dr. Diann Dickerson KRYS Negative Normal NEGATIVE [facility] Comment on above: Performed By: #### C BC #### [facility] [address] [place] [address] Dr. Diann Dickerson CUT-OFFS SEE BELOW Normal [facility] Comment on above: Result Comment: [...] ng/mL Performed By: #### C BC #### [facility] [address] [place] [address] Dr. Diann Dickerson DRUG CUT HEADER DRUG CLASS TEST SYSTEM CUT-OFF CONCENTRATIONS ARE FOLLOWS: Normal [facility] Comment on above: Performed By: #### C BC #### [facility] [address] [place] [address] Dr. Diann Dickerson mAMP Negative Normal NEGATIVE [facility] Comment on above: Performed By: #### C BC #### [facility] [address] [place] [address] Dr. Diann Dickerson MTD Negative Normal NEGATIVE [facility] Comment on above: Performed By: #### C BC #### [facility] [address] [place] [address] Dr. Diann Dickerson OPI Negative Normal NEGATIVE [facility] Comment on above: Performed By: #### C BC #### [facility] [address] [place] [address] Dr. Diann Dickerson OXY Negative Normal NEGATIVE [facility] Comment on above: Performed By: #### C BC #### [facility] [address] [place] [address] Dr. Diann Dickerson PCP Negative Normal NEGATIVE [facility] Comment on above: Performed By: #### C BC #### [facility] [address] [place] [address] Dr. Diann Dickerson PPX Negative Normal NEGATIVE [facility] Comment on above: Performed By: #### C BC #### [facility] [address] [place] [address] Dr. Diann Dickerson TCA Negative Normal NEGATIVE [facility] Comment on above: Performed By: #### C BC #### [facility] [address] [place] [address] Dr. Diann Dickerson THC Negative Normal NEGATIVE [facility] Comment on above: Performed By: #### C BC #### [facility] [address] [place] [address] Dr. Diann Dickerson GROUP B STREP CULTUREon 02-21 S. agalactiae Ag Ql (Unsp spec) Culture Observations: Group B Strep called to Ashlyn Spitler, ADVERTISING MATERIAL DISTRIBUTOR at office at 0923 bl Isolate 1 Streptococcus agalactiae Moderate growth of ORGANISM 1 Streptococcus agalactiae ANTIBIOTIC M.I.C RX STATUS Benzylpenicillin <=0.06 S F Ampicillin <=0.25 S F Cefotaxime <=0.12 S F Ceftriaxone <=0.12 S F Levofloxacin 0.5 S F Erythromycin <=0.12 S F Clindamycin <=0.25 S F Linezolid <=2 S F Vancomycin <=0.12 S F Tetracycline >=16 R F Normal [facility] Comment on above: Performed By: #### C BC #### [facility] [address] [place] [address] Dr. Diann Dickerson PREG GROWTHon 03-04-2022 US [...] DEL RIO Date: 2022-03-04 17:33 Normal [facility] AMYLASEon 01-18-2022 Amylase [Catalytic activity/Vol] 30 U/L Normal 25-115 [facility] Comment on above: Performed By: #### C VDTB #### [facility] [address] [place] [address] [id number] [address] Diann Dickerson BUNon 01-18-2022 Urea nitrogen [Mass/Vol] 7.0 mg/dL Normal 7.0-18.0 [facility] Comment on above: Performed By: #### C VDTBH #### [facility] [address] [place] [address] Dr. Diann Dickerson CBC AUTO DIFFon 01-18-2022 BASO # 0.0 103/ul Normal 0.0-0.1 [facility] Comment on above: Performed By: #### C VDTBH #### [facility] [address] [place] [address] Dr. Diann Dickerson Basophils/100 WBC (Bld) 0.3 % Normal 0.2-2.0 [facility] Comment on above: Performed By: #### C VDTBH #### [facility] [address] [place] [address] Dr. Diann Dickerson EO # 0.1 103/ul Normal 0.0-0.7 [facility] Comment on above: Performed By: #### C VDTBH #### [facility] [address] [place] [address] Dr. Diann Dickerson Eosinophils/100 WBC (Bld) 0.6 % Critically low 0.9-7.0 [facility] Comment on above: Performed By: #### C VDTBH #### [facility] [address] [place] [address] Dr. Diann Dickerson Erythrocyte distribution width (RBC) [Ratio] 12.6 % Normal 11.0-15.0 [facility] Comment on above: Performed By: #### C VDTBH #### [facility] [address] [place] [address] Dr. Diann Dickerson Hematocrit (Bld) [Volume fraction] 36.8 % Normal 36.0-48.0 [facility] Comment on above: Performed By: #### C VDTBH #### [facility] [address] [place] [address] Dr. Diann Dickerson Hemoglobin (Bld) [Mass/Vol] 12.6 g/dL Normal 12.0-16.0 [facility] Comment on above: Performed By: #### C VDTBH #### [facility] [address] [place] [address] Dr. Diann Dickerson IG # 0.06 10e3/ul Critically high 0.00-0.03 [facility] Comment on above: Performed By: #### C VDTBH #### [facility] [address] [place] [address] Dr. Diann Dickerson IG % 0.7 % Critically high 0.0-0.5 [facility] Comment on above: Performed By: #### C VDTBH #### [facility] [address] [place] [address] Dr. Diann Dickerson LYMPH # 0.7 103/ul Critically low 1.2-3.8 [facility] Comment on above: Performed By: #### C VDTBH #### [facility] [address] [place] [address] Dr. Diann Dickerson Lymphocytes/100 WBC (Bld) 7.6 % Critically low 20.5-60.0 [facility] Comment on above: Performed By: #### C VDTBH #### [facility] [address] [place] [address] Dr. Diann Dickerson MANUAL DIFF REQ NO Normal [facility] Comment on above: Performed By: #### C VDTBH #### [facility] [address] [place] [address] Dr. Diann Dickerson MCH (RBC) [Entitic mass] 33.3 pg Normal 26.7-34.0 [facility] Comment on above: Performed By: #### C VDTBH #### [facility] [address] [place] [address] Dr. Diann Dickerson MCHC (RBC) [Mass/Vol] 34.2 g/dL Normal 29.9-35.2 [facility] Comment on above: Performed By: #### C VDTBH #### [facility] [address] [place] [address] Dr. Diann Dickerson MCV (RBC) [Entitic vol] 97.4 fL Normal 81.0-99.0 [facility] Comment on above: Performed By: #### C VDTBH #### [facility] [address] [place] [address] Dr. Diann Dickerson MONO # 0.5 103/ul Normal 0.3-0.8 [facility] Comment on above: Performed By: #### C VDTBH #### [facility] [address] [place] [address] Dr. Diann Dickerson Monocytes/100 WBC (Bld) 5.3 % Normal 1.7-12.0 [facility] Comment on above: Performed By: #### C VDTBH #### [facility] [address] [place] [address] Dr. Diann Dickerson NEUT # 7.6 103/ul Critically high 1.4-6.5 [facility] Comment on above: Performed By: #### C VDTBH #### [facility] [address] [place] [address] Dr. Diann Dickerson Neutrophils/100 WBC (Bld) 85.5 % Critically high 43.0-75.0 [facility] Comment on above: Performed By: #### C VDTBH #### [facility] [address] [place] [address] Dr. Diann Dickerson Platelet mean volume (Bld) [Entitic vol] 10.2 fL Normal 9.5-13.5 [facility] Comment on above: Performed By: #### C VDTBH #### [facility] [address] [place] [address] Dr. Diann Dickerson PLT 198 103/ul Normal 150-450 [facility] Comment on above: Performed By: #### C VDTBH #### [facility] [address] [place] [address] Dr. Diann Dickerson RBC 3.78 106/ul Critically low 4.20-5.40 [facility] Comment on above: Performed By: #### C VDTBH #### [facility] [address] [place] [address] Dr. Diann Dickerson WBC 8.9 103/ul Normal 4.0-11.0 [facility] Comment on above: Performed By: #### C VDTBH #### [facility] [address] [place] [address] Dr. Diann Dickerson CREATININEon 01-18-2022 Creatinine [Mass/Vol] 0.53 mg/dL Critically low 0.55-1.02 [facility] Comment on above: Performed By: #### C VDTBH #### [facility] [address] [address] [address] Diann Dickerson EGFR-AF JORDANIAN >60 Normal >=60 [facility] Comment on above: Performed By: #### C VDTBH #### [facility] [address] [address] [address] Diann Dickerson EGFR-NON AF JORDANIAN >60 Normal >=60 [facility] Comment on above: Performed By: #### C VDTBH #### [facility] [address] [place] [address] Dr. Diann Dickerson ELECTROLYTESon 01-18-2022 Anion gap [Moles/Vol] 9.6 mmol/L Normal [facility] Comment on above: Performed By: #### C VDTBH #### [facility] [address] [place] [address] Dr. Diann Dickerson Chloride [Moles/Vol] 106 mmol/L Normal 98-107 [facility] Comment on above: Performed By: #### C VDTBH #### [facility] [address] [place] [address] Dr. Diann Dickerson CO2 [Moles/Vol] 23.5 mmol/L Normal 21.0-32.0 [facility] Comment on above: Performed By: #### C VDTBH #### [facility] [address] [place] [address] Dr. Diann Dickerson Potassium [Moles/Vol] 4.1 mmol/L Normal 3.5-5.1 [facility] Comment on above: Performed By: #### C VDTBH #### [facility] [address] [place] [address] Dr. Diann Dickerson Sodium [Moles/Vol] 135 mmol/L Critically low 136-145 [facility] Comment on above: Performed By: #### C VDTBH #### [facility] [address] [place] [address] Dr. Diann Dickerson SGOTon 01-18-2022 AST [Catalytic activity/Vol] 15 U/L Normal 15-37 [facility] Comment on above: Performed By: #### C VDTBH #### [facility] [address] [place] [address] Dr. Diann Dickerson SGPTon 01-18-2022 ALT [Catalytic activity/Vol] 19 U/L Normal 14-59 [facility] Comment on above: Performed By: #### C VDTBH #### [facility] [address] [place] [address] Dr. Diann Dickerson TSHon 01-18-2022 TSH 1.409 uIU/mL Normal 0.470-4.680 [facility] Comment on above: Performed By: #### C VDTBH #### [facility] [address] [place] [address] Dr. Diann Dickerson TSH RANGE SEE BELOW Normal [facility] Comment on above: Result Comment: <0.3 4 UIU/ml HYPERTHYROID 0.34-5.60 UIU/ml EUTHYROID >5.60 UIU/ml HYPOTHYROID Performed By: #### C VDTBH #### [facility] [address] [place] [address] Dr. Diann Dickerson UA (CLEAN/CATCH) DIRECTOR MUSEUM OR ZOO/MICRO I F IND.on 01-18-2022 Bilirubin Ql (U) Negative Normal NEGATIVE [facility] Comment on above: Performed By: #### U ACSIND #### [facility] [address] [place] [address] Dr. Diann Dickerson Clarity (U) CLEAR Normal CLEAR [facility] Comment on above: Performed By: #### U ACSIND #### [facility] [address] [place] [address] Dr. Diann Dickerson Color (U) YELLOW Normal YELLOW [facility] Comment on above: Performed By: #### U ACSIND #### [facility] [address] [place] [address] Dr. Diann Dickerson Glucose Ql (U) Negative Normal NEGATIVE [facility] Comment on above: Performed By: #### U ACSIND #### [facility] [address] [address] [address] Diann Dickerson Hemoglobin Ql (U) Negative Normal NEGATIVE [facility] Comment on above: Performed By: #### U ACSIND #### [facility] [address] [address] [address] Diann Dickerson Ketones Ql (U) Negative Normal NEGATIVE [facility] Comment on above: Performed By: #### U ACSIND #### [facility] [address] [address] [address] Diann Dickerson LEUKOCYTES Negative Normal NEGATIVE [facility] Comment on above: Performed By: #### U ACSIND #### [facility] [address] [address] [address] Diann Dickerson Nitrite Ql (U) Negative Normal NEGATIVE [facility] Comment on above: Performed By: #### U ACSIND #### [facility] [address] [address] [address] Diann Dickerson pH (U) 8.5 [pH] Normal 5-9 [facility] Comment on above: Performed By: #### U ACSIND #### [facility] [address] [address] [address] Diann Dickerson SPEC GRAVITY 1.015 Normal 1.005-<=1.025 [facility] Comment on above: Performed By: #### U ACSIND #### [facility] [address] [address] [address] Dinan Dickerson UA PROTEIN Negative Normal NEGATIVE/ TRACE [facility] Comment on above: Performed By: #### U ACSIND #### [facility] [address] [address] [address] Diann Dickerson UR MICRO IND NOT INDICATED Normal [facility] Comment on above: Performed By: #### U ACSIND #### [facility] [address] [place] [address] Dr. Diann Dickerson Urobilinogen Qn (U) 0.2 {Guy'U}/dL Normal 0.2 - 1. 0 [facility] Comment on above: Performed By: #### U ACSIND #### [facility] [address] [place] [address] Dr. Diann Dickerson US PREG BIOPHY W [...] by: MARBIN MCKEON Date: 2022-01-18 10:45 Normal [facility] US PREG CERVICAL LENGTHon US PREG CERVICAL LENGTH EXAMINATION: US PREG CERVICAL LENGTH HISTORY: Nausea and vomiting COMPARISON: 12/31/2021 FINDINGS: position: Cephalic Heart rate: 141 bpm Cervix: 4.7 cm, closed Clinical age: 20 weeks 5 days Clinical ANGELA: 04/07/2022 IMPRESSION: Closed cervix measuring 4.7 cm in length Electronically authenticated by: MARBIN MCKEON Date: 2022-01-18 10:46 Normal [facility] CULTURE URINEon 12-31-2021 CULTURE URINE Culture Observations : No growth Normal [facility] Comment on above: Performed By: #### C BC #### [facility] [address] [place] [address] Dr. Diann Dickerson PREG AMNIOTIC FLUID VOLUM Elio 12-31-2021 US [...] RIO Date: 2021-12-31 12:41 Normal [facility] GLUCOSE - 1HRon 12-17-2021 Glucose [Mass/Vol] 134 mg/dL Critically high 74-[address] [facility] Comment on above: Performed By: #### G LU1HR #### [facility] [address] [place] [address] Dr. Diann Dickerson HEMOGRAM AND PLATELon 2021 Hematocrit (Bld) [Volume fraction] 36.7 % Normal 36.0-48.0 [facility] Comment on above: Performed By: #### C BC #### [facility] [address] [place] [address] Dr. Diann Dickerson Hemoglobin (Bld) [Mass/Vol] 12.5 g/dL Normal 12.0-16.0 [facility] Comment on above: Performed By: #### C BC #### [facility] [address] [place] [address] Dr. Diann Dickerson MCH (RBC) [Entitic mass] 33.2 pg Normal 26.7-34.0 [facility] Comment on above: Performed By: #### C BC #### [facility] [address] [place] [address] Dr. Diann Dickerson MCHC (RBC) [Mass/Vol] 34.1 g/dL Normal 29.9-35.2 [facility] Comment on above: Performed By: #### C BC #### [facility] [address] [place] [address] Dr. Diann Dickerson MCV (RBC) [Entitic vol] 97.6 fL Normal 81.0-99.0 [facility] Comment on above: Performed By: #### C BC #### [facility] [address] [place] [address] Dr. Diann Dickerson PLT 207 103/ul Normal 150-450 [facility] Comment on above: Performed By: #### C BC #### [facility] [address] [place] [address] Dr. Diann Dickerson RBC 3.76 106/ul Critically low 4.20-5.40 [facility] Comment on above: Performed By: #### C BC #### [facility] [address] [place] [address] Dr. Diann Dickerson WBC 6.3 103/ul Normal 4.0-11.0 [facility] Comment on above: Performed By: #### C #### [facility] [address] [place] [address] Dr. Diann Dickerson US PREG ANATOMY SINGLEon [...] FL: 3.4 cm 20 weeks 5 days EFW:[id number]; FL/AC: [id number] FL/BPD: [id number] HC/AC: [id number] GESTATIONAL AGE: Age by EDC: 20 weeks 1 day ANGELA by EDC: 04/07/2022 Age by current US: 20 weeks 4 day ANGELA by current US: 04/04/2022 IMPRESSION: Normal anatomy scan *Reference: [employer] Practice Guideline for the performance of Obstetric Ultrasound Examinations, June 22, 2007. Electronically authenticated by: MARBIN MCKEON Date: 2021-11-20 07:34 Normal [facility] Vital Signs Date Time Vital Sign Value Performing Clinician Dipesh hooks 04-06-2025 13:26-0400 Body mass index (BMI) [Ratio] 31.01 kg/m2 Giulia Edouard Bluenog Work Phone: [facility] 04-06-2025 13:26-0400 Body weight 95.25 kg Giulia Javan DO Work Phone: [facility] 04-06-2025 13:26-0400 Diastolic blood pressure 70 mm[Hg] Giulia Javan DO Work Phone: [facility] 04-06-2025 13:26-0400 Systolic blood pressure 122 mm[Hg] Giulia Javan DO Work Phone: [facility] 03-30-2025 15:54-0400 Body mass index (BMI) [Ratio] 30.72 kg/m2 Giulia Javan DO Work Phone: [facility] 03-30-2025 15:54-0400 Body weight 94.35 kg Giulia Javan DO Work Phone: [facility] 03-30-2025 15:54-0400 Diastolic blood pressure 72 mm[Hg] Giulia Javan DO Work Phone: [facility] 03-30-2025 15:54-0400 Systolic blood pressure 118 mm[Hg] Giulia Javan DO Work Phone: [facility] 03-23-2025 10:38-0400 Body mass index (BMI) [Ratio] 30.42 kg/m2 Giulia Javan DO Work Phone: [facility] 03-23-2025 10:38-0400 Body weight 93.44 kg Giulia Javan DO Work Phone: [facility] 03-23-2025 10:38-0400 Diastolic blood pressure 78 mm[Hg] Giulia Javan DO Work Phone: [facility] 03-23-2025 10:38-0400 Systolic blood pressure 116 mm[Hg] Giulia Javan DO Work Phone: [facility] 03-16-2025 09:24-0400 Body mass index (BMI) [Ratio] 30.57 kg/m2 Margret PETER Work Phone: [facility] 03-16-2025 09:24-0400 Body weight 93.89 kg Margret PETER Work Phone: [facility] 03-16-2025 09:24-0400 Diastolic blood pressure 80 mm[Hg] Margret PETER Work Phone: [facility] 03-16-2025 09:24-0400 Systolic blood pressure 120 mm[Hg] Margret PETER Work Phone: [facility] 03-09-2025 11:20-0400 Body mass index (BMI) [Ratio] 30.42 kg/m2 Giulia Javan DO Work Phone: [facility] 03-09-2025 11:20-0400 Body weight 93.44 kg Giulia Javan DO Work Phone: [facility] 03-09-2025 11:20-0400 Diastolic blood pressure 70 mm[Hg] Giulia Javan DO Work Phone: [facility] 03-09-2025 11:20-0400 Systolic blood pressure 120 mm[Hg] Giulia Javan DO Work Phone: [facility] 02-23-2025 15:28-0400 Body mass index (BMI) [Ratio] 29.98 kg/m2 Giulia Javan DO Work Phone: [facility] 02-23-2025 15:28-0400 Body weight 92.08 kg Giulia Javan DO Work Phone: [facility] 02-23-2025 15:28-0400 Diastolic blood pressure 72 mm[Hg] Giulia Javan DO Work Phone: [facility] 02-23-2025 15:28-0400 Systolic blood pressure 124 mm[Hg] Giulia Javan DO Work Phone: [facility] 02-09-2025 10:48-0400 Body mass index (BMI) [Ratio] 29.09 kg/m2 Giulia Javan DO Work Phone: [facility] 02-09-2025 10:48-0400 Body weight 89.36 kg Giulia Javan DO Work Phone: [facility] 02-09-2025 10:48-0400 Diastolic blood pressure 70 mm[Hg] Giulia Javan DO Work Phone: [facility] 02-09-2025 10:48-0400 Systolic blood pressure 112 mm[Hg] Giulia Javan DO Work Phone: [facility] 01-19-2025 16:28-0400 Body mass index (BMI) [Ratio] 28.8 kg/m2 Giulia Javan DO Work Phone: [facility] 01-19-2025 16:28-0400 Body weight 88.45 kg Giulia Javan DO Work Phone: [facility] 01-19-2025 16:28-0400 Diastolic blood pressure 70 mm[Hg] Giulia Javan DO Work Phone: [facility] 01-19-2025 16:28-0400 Systolic blood pressure 111 mm[Hg] Giulia Javan DO Work Phone: [facility] 12-28-2024 13:17-0400 Body mass index (BMI) [Ratio] 28.21 kg/m2 Giulia Javan DO Work Phone: [facility] 12-28-2024 13:17-0400 Body weight 86.64 kg Giulia Javan DO Work Phone: [facility] 12-28-2024 13:17-0400 Diastolic blood pressure 58 mm[Hg] Giulia Javan DO Work Phone: [facility] 12-28-2024 13:17-0400 Systolic blood pressure 108 mm[Hg] Giulia Javan DO Work Phone: [facility] 11-17-2024 09:19-0500 Body mass index (BMI) [Ratio] 27.73 kg/m2 Margret PETER Work Phone: [facility] 11-17-2024 09:19-0500 Body weight 85.19 kg Margret PETER Work Phone: [facility] 11-17-2024 09:19-0500 Diastolic blood pressure 70 mm[Hg] Margret PETER Work Phone: [facility] 11-17-2024 09:19-0500 Systolic blood pressure 110 mm[Hg] Margret PETER Work Phone: [facility] 11-03-2024 10:57-0500 Body mass index (BMI) [Ratio] 27.65 kg/m2 Giulia Javan DO Work Phone: [facility] 11-03-2024 10:57-0500 Body weight 84.94 kg Giulia Javan DO Work Phone: [facility] 10-06-2024 16:40-0500 Body mass index (BMI) [Ratio] 27.59 kg/m2 Giulia Javan DO Work Phone: [facility] 10-06-2024 16:40-0500 Body weight 84.73 kg Giulia Javan DO Work Phone: [facility] 10-06-2024 16:40-0500 Diastolic blood pressure 68 mm[Hg] Giulia Javan DO Work Phone: [facility] 10-06-2024 16:40-0500 Systolic blood pressure 102 mm[Hg] Giulia Javan DO Work Phone: [facility] 09-10-2024 08:45-0500 Body mass index (BMI) [Ratio] 27.32 kg/m2 Noms Nurse [facility] 09-10-2024 08:45-0500 Body weight 83.92 kg Nom Nurse [facility] 09-10-2024 08:45-0500 Diastolic blood pressure 70 mm[Hg] Noms Nurse [facility] 09-10-2024 08:45-0500 Systolic blood pressure 118 mm[Hg] Noms Nurse [facility] 08-16-2024 09:15-0500 Body height 175.3 cm Margret PETER Work Phone: [facility] 08-16-2024 09:15-0500 Body mass index (BMI) [Ratio] 27.32 kg/m2 Margret PETER Work Phone: [facility] 08-16-2024 09:15-0500 Body weight 83.92 kg Margret PETER Work Phone: [facility] 08-16-2024 09:15-0500 Diastolic blood pressure 68 mm[Hg] Margret PETER Work Phone: [facility] 08-16-2024 09:15-0500 Systolic blood pressure 116 mm[Hg] Margret PETER Work Phone: [facility] Healthcare Encounters Encounter Date Encounter Type Care Provider Facility Start: 04-06-2025 End: 04-06-2025 flow sheet Giulia Javan DO Work Phone: [facility] Comment on above: Third trimester preg nate ([facility] 38 weeks gestation of ([facility]) Start: 04-06-2025 End: 04-06-2025 Bamboo flowsheet Giulia Javan DO Work Phone: [facility] Start: 04-06-2025 End: 04-06-2025 Bamboo flowsheet Giulia Javan DO Work Phone: [facility] Start: 03-30-2025 End: 03-30-2025 flow sheet Giulia Javan DO Work Phone: [facility] Comment on above: Third trimester preg nate ([facility]); 37 weeks gestation of ([facility]) Start: 03-30-2025 End: 03-30-2025 ambulatory GIULIA JAVAN Not Available Start: 03-30-2025 End: 03-30-2025 Bamboo flowsheet Giulia Javan DO Work Phone: [facility] Start: 03-30-2025 End: 03-30-2025 Bamboo flowsheet Giulia Javan DO Work Phone: [facility] Start: 03-23-2025 End: 03-23-2025 flow sheet Giulia Javan DO Work Phone: [facility] Comment on above: Third trimester preg nate ([facility]); 36 weeks gestation of ([facility]) Start: 03-23-2025 End: 03-23-2025 ambulatory GIULIA JAVAN Not Available Start: 03-16-2025 End: 03-16-2025 Bamboo flowsheet Margret PETER Work Phone: [facility] Start: 03-16-2025 End: 03-16-2025 Bamboo flowsheet Margret PETER Work Phone: [facility] Start: 03-16-2025 End: 03-16-2025 flow sheet Margret PETER Work Phone: [facility] Comment on above: Third trimester preg nate ([facility]); 36 weeks gestation of ([facility]) Start: 03-16-2025 End: 03-16-2025 ambulatory MARGRET HORTON Not Available Start: 03-09-2025 End: 03-09-2025 flow sheet Giulia Javan DO Work Phone: [facility] Comment on above: 34 weeks gestation o f ([facility]); Third trimester ([facility]) Start: 03-09-2025 End: 03-09-2025 ambulatory GIULIA JAVAN Not Available Start: 02-23-2025 End: 02-23-2025 flow sheet Giulia Javan DO Work Phone: [facility] Comment on above: Third trimester preg nate; 32 weeks gestation of Start: 02-23-2025 End: 02-23-2025 ambulatory GIULIA JAVAN Not Available Start: 02-23-2025 End: 02-23-2025 Bamboo flowsheet Giulia Javan DO Work Phone: [facility] Start: 02-23-2025 End: 02-23-2025 Bamboo flowsheet Giulia Javan DO Work Phone: [facility] Start: 02-16-2025 End: 02-16-2025 ambulatory GIULIA JAVAN Not Available Start: 02-09-2025 End: 02-09-2025 Bamboo flowsheet Giulia Javan DO Work Phone: [facility] Start: 02-09-2025 End: 02-09-2025 Bamboo flowsheet Giuila Javan DO Work Phone: [facility] Start: 02-09-2025 End: 02-09-2025 flow sheet Giulia Javan DO Work Phone: [facility] Comment on above: Third trimester preg nate; 30 weeks gestation of ; Vaginal discharge during in third trimester Start: 02-09-2025 End: 02-09-2025 ambulatory GIULIA JAVAN Not Available Start: 02-03-2025 End: 02-03-2025 ambulatory GIULIA JAVAN Not Available Start: 01-28-2025 End: 01-28-2025 ambulatory [facility] Start: 01-19-2025 End: 01-19-2025 ambulatory GIULIA JAVAN Not Available Start: 01-19-2025 End: 01-19-2025 flow sheet Giulia Javan DO Work Phone: [facility] Comment on above: Second trimester pre gnancy; 27 weeks gestation of Start: 01-18-2025 End: 01-18-2025 Clinisync Result Encounter Giulia Javan DO Work Phone: [facility] External Department Unsolicited Start: 01-18-2025 End: 01-18-2025 Clinisync Result Encounter Giulia Javan DO Work Phone: [facility] Unsolicited Start: 12-28-2024 End: 12-28-2024 flow sheet Giulia Javan DO Work Phone: [facility] Comment on above: 24 weeks gestation o f ; Second trimester ; Diabetes mellitus screening; Excessive growth affecting management of , antepartum, single or unspecified fetus Start: 12-28-2024 End: 12-28-2024 Bamboo flowsheet Giulia Javan DO Work Phone: [facility] Start: 12-28-2024 End: 12-28-2024 Bamboo flowsheet Giulia Javan DO Work Phone: [facility] Start: 12-28-2024 End: 12-28-2024 ambulatory GIULIA JAVAN Not Available Start: 11-29-2024 End: 11-29-2024 ambulatory MARGRET HORTON Not Available Start: 11-17-2024 End: 11-17-2024 Bamboo flowsheet Margret Sol PA Work Phone: [facility] Start: 11-17-2024 End: 11-22-2024 Bamboo flowsheet Margret Sol PA Work Phone: [facility] Start: 11-17-2024 End: 11-22-2024 Clinisync Result Encounter Margret [place] PA Work Phone: [facility] External Department Unsolicited Start: 11-17-2024 End: 11-17-2024 ambulatory MARGRET SOL Not Available Start: 11-17-2024 End: 11-17-2024 Patient encounter procedure Margret Sol PA Work Phone: [facility] Work Phone: Start: 11-17-2024 End: 11-17-2024 [...] encounter procedure [facility] Nurse [facility] Comment on above: Screening for lipoid disorders; Screening for diabetes mellitus Start: 11-03-2024 End: 11-03-2024 ambulatory GIULIA JAVAN Not Available Start: 11-03-2024 End: 11-03-2024 flow sheet Giulia Javan DO Work Phone: [facility] Comment on above: Second trimester pre gnancy; Hematuria, unspecified type; Need for maternal serum alpha-protein (MSAFP) screening; 16 weeks gestation of ; Screening, , for anatomic survey; Vaginal discharge during in second trimester Start: 10-06-2024 End: 10-06-2024 ambulatory GIULIA JAVAN Not Available Start: 10-06-2024 End: 10-06-2024 Bamboo flowsheet Giulia Javan DO Work Phone: [facility] Start: 10-06-2024 End: 10-06-2024 Bamboo flowsheet Giulia Javan DO Work Phone: [facility] Start: 10-06-2024 End: 10-06-2024 flow sheet Giulia Javan DO Work Phone: [facility] Comment on above: 12 weeks gestation o f ; First trimester Start: 10-01-2024 End: 10-01-2024 Clinisync Result Encounter Giulia Javan DO Work Phone: [facility] External Department Unsolicited Start: 10-01-2024 End: 10-01-2024 Clinisync Result Encounter Giulia Javan DO Work Phone: [facility] External Department Unsolicited Start: 09-10-2024 End: 09-10-2024 ambulatory GIULIA JAVAN Not Available Start: 09-10-2024 End: 09-10-2024 Patient encounter procedure [facility] Javan Nurse [facility] Comment on above: Missed menses; , [...] Date Procedure Procedure Detail Performing Clinician Start: 04-06-2025 Urnls dip stick/tabl et rgnt non-auto w/o micrscp Giulia Javan DO Work Phone: Start: 03-23-2025 Urnls dip stick/tabl et rgnt non-auto w/o micrscp Giulia Javan DO Work Phone: Start: 03-16-2025 Urnls dip stick/tabl et rgnt non-auto w/o micrscp Margret PETER Work Phone: Start: 03-09-2025 Urnls dip stick/tabl et rgnt non-auto w/o micrscp Giulia Javan DO Work Phone: Start: 02-23-2025 Urnls dip stick/tabl et rgnt non-auto w/o micrscp Giulia Javan DO Work Phone: Start: 02-09-2025 Urnls dip stick/tabl et rgnt non-auto w/o micrscp Giulia Javan DO Work Phone: Start: 01-19-2025 Urnls dip stick/tabl et rgnt non-auto w/o micrscp Giulia Javan DO Work Phone: Start: 01-18-2025 GLUCOSE 1 HOUR Giulia Fa zio DO Work Phone: Start: 12-28-2024 Urnls dip stick/tabl et rgnt non-auto w/o micrscp Giulia Javna DO Work Phone: Start: 11-17-2024 IGP,APTIMA HPV,AGE GDLN Margret PETER Work Phone: Start: 11-17-2024 Microscopic observat ion [Identifier] in Cervix by Cyto stain Giulia Javan DO Work Phone: Start: 11-15-2024 URINARY TRACT INFECT ION (HTRX) Giulia Javan DO Work Phone: Start: 11-09-2024 Lipid panel Rob Pelayo DO Work Phone: Start: 11-03-2024 Urnls dip stick/tabl et rgnt non-auto w/o micrscp Giuliaariela Hayeso DO Work Phone: Start: 10-06-2024 Urnls dip [...] Screening for malign ant neoplasm of cervix [facility] Healthcare Start: 11-17-2025 Screening for malign ant neoplasm of cervix [facility] Start: 05-23-2025 Influenza vaccination [facility] Start: 04-06-2025 End: 04-06-2025 Patient encounter procedure [facility] Comment on above: Arrived Start: 03-30-2025 End: 03-30-2025 Patient encounter procedure [facility] Comment on above: Arrived Start: 03-23-2025 End: 03-23-2025 Patient encounter procedure 03/23/2025 4:00 PM EDT Routine [facility] [address] [place] [address] Giulia Edouard, DO [address] [place] [address] [facility] Start: 03-16-2025 End: 03-16-2026 CULTURE, GROUP B STREP WITH SUSCEPTIBLITY CULTURE, GROUP B STREP WITH SUSCEPTIBLITY Lab Routine Third trimester ([facility]) Expected: 03/16/2025, Expires: 03/16/2026 [facility] Work Phone: Comment on above: Expected: 03/16/2025 , Expires: 03/16/2026 Start: 03-16-2025 End: 03-16-2025 Patient encounter procedure 03/16/2025 10:00 AM EDT Routine [facility] [address] [place] [phone] Margret Horton PA [address] [place], [place] [id number] Arrived [facility] Comment on above: Arrived Start: 03-09-2025 End: 03-09-2025 Patient encounter procedure 03/09/2025 4:00 PM EDT Routine [facility] [address] [place] [phone] Giulia Edouard, DO [address] [place] [address] [facility] Start: 02-23-2025 End: 02-23-2025 Patient encounter procedure [facility] Comment on above: Arrived Start: 02-09-2025 End: 05-12-2025 US for US OB limited 1+ fetuses Imaging Routine Vaginal discharge during in third trimester Expected: 02/09/2025, Expires: 05/12/2025 [facility] Work Phone: Comment on above: Expected: 02/09/2025 , Expires: 05/12/2025 Start: 02-09-2025 End: 02-09-2025 Patient encounter procedure 02/09/2025 11:00 AM EDT Routine [facility] [address] [place] [address] [place] [address] Giulia Edouard, DO [address] [place] [address] [place] [address] Arrived [facility] Comment on above: Arrived Start: 02-03-2025 End: 02-03-2025 Professional / ancillary services management 02/03/2025 8:00 AM EDT Ancillary Procedure [facility] [address] [place] [address] [place] [phone] [facility] Start: 01-25-2025 End: 01-25-2025 Patient encounter procedure 01/25/2025 9:10 AM EDT Routine [facility] [address] [place] [address] [place] [phone] Giulia Edouard, DO [address] [place] [address] [place] [address] [facility] Start: 12-28-2024 End: 12-28-2024 Patient encounter procedure 12/28/2024 3:00 PM EDT Routine [facility] [address] [place], [place] [address] [address] Giulia Edouard, DO [address] [place] [address] [place] [address] 24 weeks gestation of ; Second trimester ; Diabetes mellitus screening [facility] Comment on above: 24 weeks gestation o f ; Second trimester ; Diabetes mellitus screening Start: 12-28-2024 End: 12-28-2025 CBC panel - Blood by Automated count CBC Lab Routine 24 weeks gestation of Second trimester Diabetes mellitus screening Expected: 12/28/2024 (Approximate), Expires: 12/28/2025 [facility] Work Phone: Comment on above: Expected: 12/28/2024 (Approximate), Expires: 12/28/2025 Start: 12-28-2024 End: 12-28-2025 Measurement of glucose 1 hour after glucose challenge for glucose tolerance test Glucose tolerance, 1 hour Lab Routine 24 weeks gestation of Second trimester Diabetes mellitus screening Expected: 12/28/2024 (Approximate), Expires: 12/28/2025 [facility] Comment on above: Expected: 12/28/2024 (Approximate), Expires: 12/28/2025 Start: 12-28-2024 End: 04-29-2025 US for US OB follow up transabdominal approach Imaging Routine Excessive growth affecting management of , antepartum, single or unspecified fetus Expected: 12/28/2024, Expires: 04/29/2025 [facility] Comment on above: Expected: 12/28/2024 , Expires: 04/29/2025 Start: 11-29-2024 End: 11-29-2024 Patient encounter procedure [facility] Start: 11-29-2024 End: 11-29-2024 Professional / ancillary services management 11/29/2024 8:00 AM EDT Ancillary Procedure [facility] [address] [place] [phone] [facility] Start: 11-03-2024 End: 11-03-2024 Patient encounter procedure 11/03/2024 3:40 PM EST Routine [facility] [address] [place] [phone] Giulia Edouard, DO [address] [facility] [place] [address] [facility] Start: 11-03-2024 End: 12-01-2024 Alpha fetoprotein, maternal Alpha fetoprotein, maternal Lab Routine Need for maternal serum alpha-protein (MSAFP) screening Expected: 11/03/2024 (Approximate), Expires: 12/01/2024 [facility] Comment on above: Expected: 11/03/2024 (Approximate), Expires: 12/01/2024 Start: 11-03-2024 End: 11-03-2025 US for US OB 14+ weeks anatomy scan Imaging Routine Screening, , for anatomic survey Expected: 11/03/2024 (Approximate), Expires: 11/03/2025 [facility] Healthcare Work Phone: Comment on above: Expected: 11/03/2024 (Approximate), Expires: 11/03/2025 Start: 2024 Screening for malign ant neoplasm of cervix HPV/Cotest [facility] Start: 10-06-2024 End: 10-06-2024 Patient encounter procedure 10/06/2024 10:50 AM EST Routine [facility] [address] [place] [phone] Giulia Edouard DO [address] [facility] [address] [place] [address] [facility] Start: 09-10-2024 End: 09-10-2025 ABO/Rh ABO/Rh Lab Routine Missed menses , unspecified gestational age Expected: 09/10/2024 (Approximate), Expires: 09/10/2025 [facility] Comment on above: Expected: 09/10/2024 (Approximate), Expires: 09/10/2025 Start: 09-10-2024 End: 09-10-2025 Blood type and Indirect antibody screen panel - Blood Type and screen Lab Routine Missed menses , unspecified gestational age Expected: 09/10/2024 (Approximate), Expires: 09/10/2025 [facility] Work Phone: Comment on above: Expected: 09/10/2024 (Approximate), Expires: 09/10/2025 Start: 09-10-2024 End: 09-10-2025 Drugs of abuse panel - Urine by Screen method Rapid drug screen, urine Lab Routine , unspecified gestational age Encounter for supervision of normal first in first trimester Expected: 09/10/2024 (Approximate), Expires: 09/10/2025 [facility] Comment on above: Expected: 09/10/2024 (Approximate), Expires: 09/10/2025 Start: 09-10-2024 End: 09-10-2025 US Pelvis transvaginal US OB transvaginal Imaging Routine Missed menses Expected: 09/10/2024 (Approximate), Expires: 09/10/2025 [facility] Comment on above: Expected: 09/10/2024 (Approximate), Expires: 09/10/2025 Start: 09-10-2024 End: 09-10-2024 Patient encounter procedure 09/10/2024 8:20 AM EST Routine [facility] [address] [place] [address] [facility] Start: 09-10-2024 End: 09-10-2024 Professional / ancillary services management 09/10/2024 8:00 AM EST Ancillary Procedure [facility] [address] [place] [address] [facility] Start: 08-16-2024 End: 08-16-2025 Lipid 1996 panel - Serum or Plasma Lipid panel Lab Routine Annual wellness visit Expected: 08/16/2024 (Approximate), Expires: 08/16/2025 [facility] Comment on above: Expected: 08/16/2024 (Approximate), Expires: 08/16/2025 Start: 05-23-2024 Influenza vaccination Influenza Vacc ine (#1) [facility] Bacteria identified in Urine by Culture Urine culture Microbiology Routine Missed menses Ordered: 09/10/2024 [facility] Comment on above: Ordered: 09/10/2024 CBC W Auto Different ial panel - Blood CBC and differential Lab Routine Annual wellness visit Ordered: 08/16/2024 [facility] Comment on above: Ordered: 08/16/2024 CBC W Auto Different ial panel - Blood CBC and differential Lab Routine Missed menses , unspecified gestational age Ordered: 09/10/2024 [facility] Comment on above: Ordered: 09/10/2024 CHLAMYDIA TRACHOMATI S (GENITO/STI) CHLAMYDIA TRACHOMATIS (GENITO/STI) Lab Routine Vaginal discharge Ordered: 11/17/2024 [facility] Comment on above: Ordered: 11/17/2024 Comprehensive metabo lic 2000 panel - Serum or Plasma Comprehensive metabolic panel Lab Routine Annual wellness visit Ordered: 08/16/2024 [facility] Comment on above: Ordered: 08/16/2024 Cytology Cervical or vaginal smear or scraping study Pap Smear Pathology and Cytology Routine Well woman exam with routine gynecological exam Ordered: 11/17/2024 [facility] Comment on above: Ordered: 11/17/2024 Hemoglobin A1c/Hemoglobin.total in Blood Hemoglobin A1c Lab Routine Annual wellness visit Ordered: 08/16/2024 [facility] Comment on above: Ordered: 08/16/2024 Hemoglobin A1c/Hemoglobin.total in Blood Hemoglobin A1c Lab Routine Missed menses , unspecified gestational age Ordered: 09/10/2024 [facility] Comment on above: Ordered: 09/10/2024 Hepatitis B virus surface Ag [Presence] in Serum or Plasma by Immunoassay Hepatitis B surface antigen Lab Routine Missed menses , unspecified gestational age Ordered: 09/10/2024 [facility] Comment on above: Ordered: 09/10/2024 Hepatitis C virus Ab [Presence] in Serum or Plasma by Immunoassay Hepatitis C antibody Lab Routine Missed menses , unspecified gestational age Ordered: 09/10/2024 [facility] Comment on above: Ordered: 09/10/2024 HIV-1/HIV-2 antigen/antibody combination immunoassay HIV-1 and HIV-2 antibodies Lab Routine Missed menses , unspecified gestational age Ordered: 09/10/2024 [facility] Comment on above: Ordered: 09/10/2024 Human papilloma viru s DNA [Presence] in Unspecified specimen by Probe with amplification HPV DNA probe, amplified Microbiology Routine Well woman exam with routine gynecological exam Ordered: 11/17/2024 [facility] Comment on above: Ordered: 11/17/2024 Neisseria gonorrhoea e DNA [Presence] in Unspecified specimen by PREMA with probe detection Neisseria gonorrhea DNA probe, direct Lab Routine Vaginal discharge Ordered: 11/17/2024 [facility] Comment on above: Ordered: 11/17/2024 Reagin Ab [Presence] in Serum by RPR RPR Lab Routine Missed menses , unspecified gestational age Ordered: 09/10/2024 [facility] Comment on above: Ordered: 09/10/2024 Rubella antibody, IgG Rubella an tibody, IgG Lab Routine Missed menses , unspecified gestational age Ordered: 09/10/2024 [facility] Comment on above: Ordered: 09/10/2024 SURESWAB(R) ADVANCED VAGINITIS PLUS, TMA SURESWAB(R) ADVANCED VAGINITIS PLUS, TMA Pathology and Cytology Routine Exposure to STD Ordered: 11/17/2024 [facility] Work Phone: Comment on above: Ordered: 11/17/2024 Thyrotropin [Units/volume] in Serum or Plasma TSH Lab Routine Annual wellness visit Ordered: 08/16/2024 [facility] Work Phone: Comment on above: Ordered: 08/16/2024 Payers Date Payer Category Payer Unknown [id number] 2022 Private Health Insurance [id number] 2019 Medicaid (Managed Care) 1.2. [id number] 1994 Unknown [id number] 2.16.84 0.1.163989.3.579.2.593 1994 Unknown [id number] 2.16.84 0.1.161050.3.579.2.593 1994 Unknown [id number] 2.16.84 0.1.217103.3.579.2.593 1994 Unknown [id number] 2.16.84 0.1.204079.3.579.2.593 1994 Unknown [id number] 2.16.84 0.1.531545.3.579.2.593 1994 Unknown [id number] 2.16.84 0.1.791098.3.579.2.593 1994 Unknown [id number] 2.16.84 0.1.203782.3.579.2.593 1994 Unknown [id number] 2.16.84 0.1.884734.3.579.2.593 1994 Unknown [id number] 2.16.84 0.1.852868.3.579.2.593 1994 Unknown [id number] 2.16.84 0.1.361696.3.579.2.593 1994 Unknown [id number] 2.16.84 0.1.367548.3.579.2.593 1994 Unknown [id number] 2.16.8 40.1.715627.3.579.2.9 1994 Unknown [id number] 2.16.8 40.1.745372.3.579.2.1258 1994 Unknown [id number] 2.16.8 40.1.598349.3.579.2.9 1994 Unknown [id number] 2.16.8 40.1.031942.3.579.2.1258 1994 Unknown [id number] 2.16.8 40.1.460067.3.579.2.9 1994 Unknown [id number] 2.16.84 0.1.452408.3.579.2.1258 1994 Unknown [id number] 2.16.84 0.1.659435.3.579.2.1258 1994 Unknown [id number] 2.16.84 0.1.904674.3.579.2.1258 1994 Unknown [id number] 2.16.84 0.1.672231.3.579.2.1258 1994 Unknown [id number] 2.16.84 0.1.315995.3.579.2.1258 1994 Unknown [id number] 2.16.84 0.1.132418.3.579.2.1258 1994 Unknown [id number] 2.16.84 [id number] 1994 Unknown [id number] 2.16.84 [id number] 1994 Unknown [id number] 2.16.84 [id number] 1994 Unknown [id number] 2.16.84 [id number] 1994 Unknown [id number] 2.16.84 [id number] 1994 Unknown [id number] 2.16.84 [id number] 1994 Unknown [id number] 2.16.84 [id number] 1959 Unknown [id number] 1959 Unknown [id number] 1960 Unknown [id number] Social History Date Type Detail Facility Tobacco smoking stat [facility] Tobacco smoking consumption unknown [facility] Start: 1995 Sex assigned at Female [facility] Start: 08-09-2024 Gender identity Identifies as female gender (finding) [facility] Start: 08-09-2024 Sexual orientation Heterosexual (fin ding) [facility] Start: 07-22-2024 [facility] Clinical Notes 11-19-2021 to 03-30-2025 Kaya Oh LPN - 03/30/2025 4:00 PM Viet Oh LPN - 03/23/2025 11:00 AM ROME Lin - 03/16/2025 10:00 AM Isabella Pena NP - 02/23/2025 4:00 PM EDT Note Date & Type Note Facility 03-30-2025 History of Present illness Narrative Reason for Appointment: Patient ID: [...] nursing note reviewed. Exam conducted with a heavy duty custodian present. Vitals: Estimated body mass index is 30.72 kg/m as calculated from the following: Height as of 08/16/24: 5' 9 . Weight as of this encounter: 208 lb. BP: 118/72 Patient's last menstrual period was 07/08/2024. ASSESSMENT & PLAN ICD-10-CM 1. Third trimester ([facility]) Z34.93 2. 37 weeks gestation of ([facility]) Z3A.37 Return OB: Patient presents today for a routine obstetrics appointment. Patient is currently 37w6d . Patient states she is doing well but has complaints of being tired due to current . Patient has verbalizes frequent movement. labor precautions was discussed/given and patient was instructed to perform kick counts three times a day. No orders of the defined types were placed in this encounter. Follow Up: Patient is to return to office in 1 week for routine OB appointment. Documented by Kaya Oh LPN on behalf of: Giulia Edouard DO documented in this encounter [facility] 03-23-2025 History of Present illness Narrative Reason for Appointment: Patient ID: [...] nursing note reviewed. Exam conducted with a heavy duty custodian present. Vitals: Estimated body mass index is 30.42 kg/m as calculated from the following: Height as of 24: 5' 9 . Weight as of this encounter: 206 lb. BP: 116/78 Patient's last menstrual period was 07/08/2024. ASSESSMENT & PLAN ICD-10-CM 1. Third trimester ([facility]) Z34.93 Urine dip 2. 36 weeks gestation of ([facility]) Z3A.36 Urine dip Return OB: Patient presents today for a routine obstetrics appointment. Patient is currently 36w6d . Patient states she is doing well but has complaints of being tired due to current . Patient has verbalizes frequent movement. labor precautions was discussed/given and patient was instructed to perform kick counts three times a day. Pt uncomfortable and crampy- nothing consistent. Orders Placed This Encounter Procedures Urine dip Follow Up: Patient is to return to office in 1 week for routine OB appointment. Documented by Kaya Oh LPN on behalf of: Giulia Edouard DO documented in this encounter [facility] 03-16-2025 History of Present illness Narrative Reason for Appointment: Patient ID: [...] Vitals: Estimated body mass index is 30.57 kg/m as calculated from the following: Height as of 08/16/24: 5' 9 . Weight as of this encounter: 207 lb. BP: 120/80 Patient's last menstrual period was 07/08/2024. ASSESSMENT & PLAN ICD-10-CM 1. Third trimester ([facility]) Z34.93 POCT urinalysis dipstick manually resulted CULTURE, GROUP B STREP WITH SUSCEPTIBLITY CULTURE, GROUP B STREP WITH SUSCEPTIBLITY 2. 36 weeks gestation of ([facility]) Z3A.36 Patient is doing well but has [...] Adams documented in this encounter [facility] 02-23-2025 History of Present illness Narrative Reason for Appointment: Patient ID: [...] HENT: Negative. Eyes: Negative. Respiratory: Negative. Cardiovascular: Positive for leg swelling. Mild lower extremity swelling Gastrointestinal: Negative. Genitourinary: Negative. Musculoskeletal: Negative. Skin: [...] nursing note reviewed. Exam conducted with a heavy duty custodian present. Vitals: Estimated body mass index is 29.98 kg/m as calculated from the following: Height as of 08/16/24: 5' 9 . Weight as of this encounter: 203 lb. BP: 124/72 Patient's last menstrual period was 07/08/2024. ASSESSMENT & PLAN ICD-10-CM 1. Third trimester Z34.93 POCT urinalysis dipstick manually resulted 2. 32 weeks gestation of Z3A.32 POCT urinalysis dipstick manually resulted Return OB: Patient presents today for a routine obstetrics appointment. Patient is currently 32w6d . Patient states she is doing well but has complaints of being tired due to current . Pt urine being sent for culture, pt having a lot of lower pubic pain. Discussed all concerns with pt in detail. Pt advised to do pedal pumps on trip this weekend, also get out and walk every 2 hours. Patient has verbalizes frequent movement. labor precautions was discussed/given and patient was instructed to perform kick counts three times a day. Orders Placed This Encounter Procedures POCT urinalysis dipstick manually resulted Follow Up: Patient is to return to office in 2 week for routine OB appointment. Documented by Vesna Pena NP on behalf of: Giulia Edouard DO documented in this encounter [facility] 02-09-2025 History of Present illness Narrative Reason for Appointment: Patient ID: [...] Respiratory: Negative. Cardiovascular: Negative. Gastrointestinal: Negative. Genitourinary: Positive for vaginal discharge. Musculoskeletal: Negative. Skin: Negative. Neurological: Negative. All [...] nursing note reviewed. Exam conducted with a heavy duty custodian present. Vitals: Estimated body mass index is 29.09 kg/m as calculated from the following: Height as of 24: 5' 9 . Weight as of this encounter: 197 lb. BP: 112/70 Patient's last menstrual period was 07/08/2024. ASSESSMENT & PLAN ICD-10-CM 1. Third trimester Z34.93 POCT urinalysis dipstick manually resulted 2. 30 weeks gestation of Z3A.30 Return OB: Patient presents today for a routine obstetrics appointment. Patient is currently 30w6d . Patient states she is doing well but has complaints of being tired due to current . Pt was seen at [facility] for amnisure and was negative. Pt still having vaginal discharge, rx for flagyl faxed to pharmacy. Pt given FILOMENA to have obtained. Patient has verbalizes frequent movement. labor precautions was discussed/given and patient was instructed to perform kick counts three times a day. Orders Placed This Encounter Procedures US OB limited 1+ fetuses POCT urinalysis dipstick manually resulted Follow Up: Patient is to return to office in 2 week for routine OB appointment. Documented by Kaya hO LPN on behalf of: Giulia Edouard DO documented in this encounter [facility] 01-28-2025 Note [facility] Note Reason for cardiology consult: Palpitations and dizziness Chief Complaint: Palpitations and dizziness HPI: Sidra Ortega is a 29 y.o. female without prior cardiac history. She is 29 week , she has history of GERD. Patient reports that over the last 2 months she has been having episodes of dizziness followed by feeling hot and sweaty then she feels that her heart racing and close to pass out, they are associated with little chest discomfort, they occur randomly, usually in sitting or standing position, she never had total syncope, blood pressure usually on the low side, they occur about 3-4 times a week. This is her third . With the other 2 pregnancies she had mild symptoms but usually with exertion. She admits occasional exertional dyspnea, she denies orthopnea or paroxysmal nocturnal dyspnea. She admits occasional legs edema but no legs discomfort on exertion She drinks 1 cup of coffee a day and she drinks significant amount of fluids. Cardiology ROS: GENERAL: Denies fever, chills, night sweats, weight loss. HEENT: Denies changes in vision, photophobia, changes in hearing, epistaxis, oral bleeding. CARDIOVASCULAR: As described above RESPIRATORY: Denies SOB, coughing, wheezing GI: Denies abdominal pain, nausea/vomiting, heartburn, melena/hematochezia. RENAL: Denies dysuria, hematuria, flank pain. MSK: Denies muscle weakness/pain, arthralgias/joint pain. NEUROLOGIC: Denies LOC, weakness, numbness, headaches. SKIN: Denies abnormal rashes or bleeding. PSYCH: Denies significant anxiety, depression, sleep disturbances. Past Medical History She has no past medical history on file. Surgical History She has no past surgical history on file. Social History She reports that she has never smoked. She has never used smokeless tobacco. She reports that she does not currently use alcohol. She reports that she does not use drugs. Family History Family History Problem Relation Name Age of Onset Arrhythmia Mother Allergies Patient has no known allergies. Medications Current Outpatient Medications: omeprazole (PriLOSEC) [address] capsule, Take 20 mg by mouth before breakfast., Disp: , Rfl: [id number] ( Multi-DHA,with vit K,) 27 mg iron-800 mcg-260 mg capsule, Take by mouth., Disp: , Rfl: meclizine (Antivert) 12.5 mg tablet, Take 12.5 mg by mouth if needed in the morning, at noon, and at bedtime., Disp: , Rfl: Last Recorded Vitals Visit Vitals BP 128/74 (BP Location: Left arm, Patient Position: Sitting) Pulse 81 Ht 1.753 m (5' 9 ) Wt 89.4 kg (197 lb) SpO2 99% BMI 29.09 kg/m??? Smoking Status Never BSA 2.09 m??? Physical Examination: GENERAL: alert and oriented x3, well developed, in no acute distress. HEAD: atraumatic, normocephalic. EYES: KEVYN, EOMI. NECK: trachea midline, no JVD present, no carotid bruits present. CARDIAC: S1, S2 present. RRR. No murmur, rubs, or gallops. RESPIRATORY: CTAB, no increased effort of breathing, no rales, rhonchi, or wheezing. ABDOMEN: soft, nontender, nondistended. EXTREMITIES: no lower extremity edema, peripheral pulses are 2+ bilaterally. No rash/skin discoloration present. NEURO: strength/sensation equal and symmetric in bilateral upper and lower extremities. PSYCH: appropriate mood, affect, and judgement. Labs: 01/18/2025 White blood count 6.4, hemoglobin 11.6, hematocrit 32.8, platelets 175 11/09/2024 Cholesterol 209, HDL 64 Last Images: EKG today 01/28/2025 showed normal sinus rhythm, heart rate 81 bpm, normal EKG Assessment and Plan: Dizziness,/near syncope probably due to orthostatic hypotension exacerbated by Palpitations, probably sinus tachycardia as a response to hypotension Dyspnea on exertion , 29 weeks Plan: Patient was advised to continue current behavior of reducing caffeine intake and increase her fluid intake She was given a prescription for compression stockings with moderate pressure 20 to 30 mmHg to wear them during the daytime Check TSH level Will obtain echocardiographic study to evaluate cardiac and valvular function I will contact the patient with the above results and with any further recommendations Otherwise, follow-up in 2 months Nayana Redd MD,[facility] 01-19-2025 History of Present illness Narrative Reason for Appointment: Patient ID: Sdira Ortega is a 29 y.o. female who presents for Routine Visit Patient presents today for Return OB appointment. MEDICATIONS Current Outpatient Medications Medication Instructions meclizine (ANTIVERT) 12.5 mg, Oral, 3 times daily PRN omeprazole OTC (PRILOSEC OTC) 20 mg, Oral, [...] nursing note reviewed. Exam conducted with a heavy duty custodian present. Vitals: Estimated body mass index is 28.8 kg/m as calculated from the following: Height as of 08/16/24: 5' 9 . Weight as of this encounter: 195 lb. BP: 111/70 Patient's last menstrual period was 07/08/2024. ASSESSMENT & PLAN ICD-10-CM 1. Second trimester Z34.92 POCT urinalysis dipstick manually resulted 2. 27 weeks gestation of Z3A.27 POCT urinalysis dipstick manually resulted Return OB: Patient presents today for a routine obstetrics appointment. Patient is currently 27w6d . Pt has complaints of periodic near syncopal episodes, racing heartrate, sweating and overall feeling not right , pt being referred to cardiology. Patient states she is doing well but has complaints of being tired due to current . Patient has verbalizes frequent movement. labor precautions was discussed/given and patient was instructed to perform kick counts three times a day. Orders Placed This Encounter Procedures POCT urinalysis dipstick manually resulted Follow Up: Patient is to return to office in 2 week for routine OB appointment. Documented by Kaya Oh LPN on behalf of: Giulia Edouard DO documented in this encounter [facility] 12-28-2024 History of Present illness Narrative Reason for Appointment: Patient ID: Sidra Ortega is a 29 y.o. female who presents for Routine Visit Patient presents today for Return OB appointment. MEDICATIONS Current Outpatient Medications Medication Instructions meclizine (ANTIVERT) 12.5 mg, Oral, 3 times daily PRN omeprazole OTC (PRILOSEC OTC) 20 mg, Oral, [...] nursing note reviewed. Exam conducted with a heavy duty custodian present. Vitals: Estimated body mass index is 28.21 kg/m as calculated from the following: Height as of 08/16/24: 5' 9 . Weight as of this encounter: 191 lb. BP: 108/58 Patient's last menstrual period was 07/08/2024. ASSESSMENT & PLAN ICD-10-CM 1. 24 weeks gestation of Z3A.24 CBC Glucose tolerance, 1 hour CBC Glucose tolerance, 1 hour POCT urinalysis dipstick manually resulted 2. Second trimester Z34.92 CBC Glucose tolerance, 1 hour CBC Glucose tolerance, 1 hour POCT urinalysis dipstick manually resulted 3. Diabetes mellitus screening Z13.1 CBC Glucose tolerance, 1 hour CBC Glucose tolerance, 1 hour 4. Excessive growth affecting management of , antepartum, single or unspecified fetus O36.60X0 US OB follow up transabdominal approach Return OB: Patient presents today for a routine obstetrics appointment. Patient is currently 24w5d . Patient states she is doing well but has complaints of being tired due to current . Pt given glucola order with instructions. Pt measuring ahead given growth ultrasound. Patient has verbalizes frequent movement. labor precautions was discussed/given. Orders Placed This Encounter Procedures US OB follow up transabdominal approach CBC Glucose tolerance, 1 hour POCT urinalysis dipstick manually resulted Follow Up: Patient is to return to office in 2 week for routine OB appointment. Documented by Kaya Oh LPN on behalf of: Giulia Edouard DO documented in this encounter [facility] 11-17-2024 History of Present illness Narrative Reason for Appointment: Patient ID: [...] nursing note reviewed. Exam conducted with a heavy duty custodian present. 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 documented in this encounter [facility] 11-03-2024 History of Present illness Narrative Reason for Appointment: Patient ID: [...] nursing note reviewed. Exam conducted with a heavy duty custodian present. Vitals: Estimated body mass index is [...] DO documented in this encounter [facility] 10-06-2024 History of Present illness Narrative Reason for Appointment: Patient ID: [...] nursing note reviewed. Exam conducted with a heavy duty custodian present. Vitals: Estimated body mass index is [...] or undercooked meat, and stay away from [facility]. Patient has been consulted regarding any [...] DO documented in this encounter [facility] 09-10-2024 History of Present illness Narrative Reason for Appointment: Patient ID: [...] or undercooked meat, and stay away from [facility]. Patient has also been advised to [...] MA documented in this encounter [facility] 08-16-2024 History of Present illness Narrative Reason for Appointment: Patient ID: [...] Adams documented in this encounter [facility] 11-19-2021 Note PROCEDURE: XR WRIST LT MIN 3 V COMPARISON: None. HISTORY: Pain of left wrist FINDINGS: BONES:No fracture, acute abnormality, or significant arthropathy. SOFT TISSUES:Negative. No visible soft tissue swelling. EFFUSION:None visible. OTHER: Negative. IMPRESSION: No acute abnormality Electronically authenticated by: MARBIN MCKEON Date: 2021-11-19 13:16 [facility] Evaluation note Diagnosis Annual wellness visit- Primary documented in this encounter [facility]* Diagnosis Missed menses , unspecified gestational age Encounter for supervision of normal first in first trimester 9 weeks gestation of documented in this encounter [facility]* Diagnosis 12 weeks gestation of First trimester state, incidental documented in this encounter [facility]* Diagnosis Second trimester state, incidental Hematuria, unspecified type Need for maternal serum alpha-protein (MSAFP) screening 16 weeks gestation of Screening, , for anatomic survey Encounter for anatomic survey Vaginal discharge during in second trimester documented in this encounter [facility]* Diagnosis Screening for lipoid disorders Screening for diabetes mellitus [facility]* Diagnosis Well woman exam with routine gynecological exam Routine gynecological examination 18 weeks gestation of Exposure to STD Vaginal discharge Leukorrhea, not specified as infective Second trimester state, incidental [facility]* Diagnosis 24 weeks gestation of Second trimester state, incidental Diabetes mellitus screening Screening for diabetes mellitus Excessive growth affecting management of , antepartum, single or unspecified fetus [facility]* Diagnosis Second trimester state, incidental 27 weeks gestation of [facility]* Diagnosis Third trimester state, incidental 30 weeks gestation of Vaginal discharge during in third trimester [facility]* Diagnosis Third trimester state, incidental 32 weeks gestation of [facility]* Diagnosis 34 weeks gestation of ([facility]) Third trimester ([facility]) state, incidental [facility] Diagnosis Third trimester ([facility]) state, incidental 36 weeks gestation of ([facility]) [facility] Diagnosis Third trimester ([facility]) state, incidental 36 weeks gestation of ([facility]) [facility] Diagnosis Third trimester ([facility]) state, incidental 37 weeks gestation of ([facility]) [facility] Diagnosis Third trimester ([facility]) state, incidental 38 weeks gestation of ([facility]) [facility]* ROME Adams - 03/09/2025 4:00 PM EDT [...] Vitals: Estimated body mass index is 30.42 kg/m as calculated from the following: Height as of 08/16/24: 5' 9 . Weight as of this encounter: 206 lb. BP: Patient's last menstrual period was 07/08/2024. ASSESSMENT & PLAN ICD-10-CM 1. 34 weeks gestation of ([facility]) Z3A.34 POCT urinalysis dipstick manually resulted 2. Third trimester ([facility]) Z34.93 POCT urinalysis dipstick manually resulted [...] week for routine OB appointment. Documented by ROME Adams on behalf of: Giulia Edouard DO [facility] Narrative * Kaya Oh, [employer]VERTISING [employer] - 04/06/2025 4:00 PM EDT Reason for [...] nursing note reviewed. Exam conducted with a heavy duty custodian present. Vitals: Estimated body mass index is 31.01 kg/m as calculated from the following: Height as of 08/16/24: 5' 9 . Weight as of this encounter: 210 lb. BP: 122/70 Patient's last menstrual period was 07/08/2024. ASSESSMENT & PLAN ICD-10-CM 1. Third trimester ([facility]) Z34.93 POCT urinalysis dipstick manually resulted 2. 38 weeks gestation of ([facility]) Z3A.38 Return OB: Patient presents today for [...] of: Giulia Edouard DO [facility] Purpose Family History No Family History Records FoundNo Family History Records FoundNo Family History Records Found Advance Directives No Advanced Directives Records FoundNo Advanced Directives Records FoundNo Advanced Directives Records Found Additional Source Comments INFORMATION SOURCE (unrecogn ized section and content) DATE CREATED AUTHOR 10/24/2022 [facility] DATE CREATED AUTHOR AUTHOR'S ORGANIZ ATION 01/31/2025 [facility] DATE CREATED AUTHOR AUTHOR'S ORGANIZ ATION 04/03/2025 [facility] Care Teams (unrecognized sec tion and content) Supervisor [employer] Relationship Specialty Start Date End Date Deanne Pierre MD [address] [place] [facility] [place] [address] PCP - General Family Medicine 08/11/23 Supervisor [employer] Relationship Specialty Start Date End Date Deanne Pierre MD [address] [place] [facility] [place] [address] PCP - General Family Medicine 08/11/23 Supervisor [employer] Relationship Specialty Start Date End Date Deanne Pierre MD [address] [facility] [place] [address] PCP - General Family Medicine 08/11/23 Supervisor [employer] Relationship Specialty Start Date End Date Deanne Pierre MD [address] [facility] [place] [address] PCP - General Family Medicine 08/11/23 Supervisor [employer] Relationship Specialty Start Date End Date Deanne Pierre MD [address] [facility] [place] [address] PCP - General Family Medicine 08/11/23 Supervisor [employer] Relationship Specialty Start Date End Date Deanne Pierre MD [address] [facility] [place] [address] PCP - General Family Medicine 08/11/23 Supervisor [employer] Relationship Specialty Start Date End Date Deanne Pierre MD [address] [facility] [place] [address] PCP - General Family Medicine 08/11/23 Supervisor [employer] Relationship Specialty Start Date End Date Deanne Pierre MD [address] [facility] [place] [address] PCP - General Family Medicine 08/11/23 Supervisor [employer] Relationship Specialty Start Date End Date Deanne Pierre MD [address] [facility], [facility] [address] PCP - General Family Medicine 08/11/23 Supervisor [employer] Relationship Specialty Start Date End Date Deanne Pierre MD [address] [facility] [place] [address] PCP - General Family Medicine 08/11/23 Supervisor [employer] Relationship Specialty Start Date End Date Deanne Pierre MD [address] [facility] [place] [address] PCP - General Family Medicine 08/11/23 Supervisor [employer] Relationship Specialty Start Date End Date Deanne Pierre MD PCP - General Family Medicine 08/11/23 Supervisor [employer] Relationship Specialty Start Date End Date Deanne Pierre MD [address] [facility] [place] [address] PCP - General Family Medicine 02/09/25 Supervisor [employer] Relationship Specialty Start Date End Date Deanne Pierre MD [address] [facility] [place] [address] PCP - General Family Medicine 02/09/25 Supervisor [employer] Relationship Specialty Start Date End Date Deanne Pierre MD [address] [facility] [place] [address] PCP - General Family Medicine 02/09/25 [employer] Relationship Specialty Start Date End Date Deanne Pierre MD [address] [facility] [place] [address] PCP - General Family Medicine 02/09/25 [employer] Relationship Specialty Start Date End Date Deanne Pierre MD [address] [facility] [place] [address] PCP - General Family Medicine 02/09/25 [employer] Relationship Specialty Start Date End Date Deanne Pierre MD [address] [facility] [place] [address] PCP - General Family Medicine 02/09/25 [employer] Relationship Specialty Start Date End Date Deanne Pierre MD [address] [facility] [place] [address] PCP - General Family Medicine 02/09/25 [employer] Relationship Specialty Start Date End Date Deanne Pierre MD [address] [facility] [place] [address] PCP - General Family Medicine 02/09/25 [employer] Relationship Specialty Start Date End Date Deanne Pierre MD [address] [facility] [place] [address] PCP - General Family Medicine 02/09/25 Reason for Visit (unrecogniz ed section and [...] BE BASED ON THE PRIMARY CLINICAL RECORDS. [facility] [employer] [facility]. provides no warranty or guarantee of the accuracy or completeness of information in this document.
[2025-04-07] MEDS: 0.9 % SODIUM CHLORIDE 1,000 ML 125 ML IV ×2 (06:00→11:15)
[2025-04-07] MEDS: OXYTOCIN/0.9 % SODIUM CHLORIDE 10 UNITS/500 ML PLAST..BAG 6 UNIT IV (06:00)
[2025-04-07] MEDS: AMPICILLIN SODIUM 2,000 MG in 0.9 % SODIUM CHLORIDE 100 ML 200 MG IV (06:05)
[2025-04-07 06:29] LABS: Hematocrit 37.1 % (36.0-48.0); Hemoglobin 13.2 g/dL (12.0-16.0); Mean Corpuscular HGB Conc 35.6 g/dL (29.9-35.2); Mean Corpuscular Hemoglobin 34.1 pg (26.7-34.0); Mean Corpuscular Volume 95.9 fL (81.0-99.0); Platelet Count 170 10^3/uL (150-450); Red Blood Count 3.87 10^6/uL (4.20-5.40); White Blood Count 8.1 10^3/uL (4.0-11.0)
[2025-04-07 06:58] LABS: Cannabinoid Screen Urine NEGATIVE (NEGATIVE); Methamphetamines Screen Urine NEGATIVE (NEGATIVE); Tricyclic Antidepressant Urine NEGATIVE (NEGATIVE)
[2025-04-07] MEDS: AMPICILLIN SODIUM 1,000 MG in 0.9 % SODIUM CHLORIDE 50 ML 100 MG IV ×2 (10:15→13:27)
[2025-04-07] MEDS: ROPIVACAINE HCL/PF 400 MG/200 ML PREMIX 10 MG EPIDURAL (11:36)
[2025-04-07] MEDS: ROPIVACAINE HCL 0.2% PF 40 MG/20 ML VIAL EPIDURAL (11:38)
[2025-04-07] MEDS: OXYTOCIN/0.9 % SODIUM CHLORIDE 20 UNITS/1,000 ML PLAST..BAG 125 UNIT IV (13:54)
--- NOTE | 2025-04-07 15:45 | PM.OBPRCVD ---
Procedure Intrapartal events: None Induction method: per pitocin protocol Delivery augmentation: rupture of membranes and pitocin Delivery monitor: external FHT and external uterine Route of delivery: Episiotomy Description: none L&D Laceration Description: none Estimated blood loss (mL): 250 Anesthesia type: Epidural Disposition: floor Delivery date: 04/07/25 Gender: male presentation: vertex Placental delivery description: Spontaneous cord description: 3 Vessels and Nuchal Cord Labor State Duration Total Length of Latency: 6 hours and 3 minutes
[2025-04-07] MEDS: IBUPROFEN 600 MG TABLET PO (15:59)
[2025-04-07] MEDS: GLYCERIN/WITCH HAZEL PADS 1 PAD TOPICAL (15:59)
[2025-04-07] MEDS: BENZOCAINE/MENTHOL 85 GRAM SPRAY BOTTLE 1 APPLIC TOPICAL (17:33)
[2025-04-07] MEDS: ACETAMINOPHEN 325 MG TABLET 650 MG PO (19:26)
[2025-04-08 01:35] VITALS: TEMP 36.6
[2025-04-08 01:36] VITALS: BP 126/76; PULSE 68
[2025-04-08] MEDS: IBUPROFEN 600 MG TABLET PO (01:37)
[2025-04-08 06:33] LABS: Hematocrit 33.8 % (36.0-48.0); Hemoglobin 11.8 g/dL (12.0-16.0); Immature Granulocytes Abs Auto 0.06 10^3/uL (0.00-0.03); Immature Granulocytes Pct Auto 0.5 % (0.0-0.5); Lymphocytes Absolute Auto 1.5 10^3/uL (1.2-3.8); Mean Corpuscular HGB Conc 34.9 g/dL (29.9-35.2); Mean Corpuscular Hemoglobin 34.3 pg (26.7-34.0); Mean Corpuscular Volume 98.3 fL (81.0-99.0); Platelet Count 142 10^3/uL (150-450); Red Blood Count 3.44 10^6/uL (4.20-5.40); White Blood Count 11.6 10^3/uL (4.0-11.0)
[2025-04-08 08:25] VITALS: BP 125/84; PULSE 88
--- NOTE | 2025-04-08 08:43 | PM.OBPN ---
OB - PN: Subj Subjective Patient comments: no complaints and pain well controlled status: doing well Exam Constitutional Vital Signs, click to edit/add: Last Vital Signs Temp 97.8 F 04/08/25 01:35 Pulse 88 04/08/25 08:25 Resp 16 04/08/25 01:35 BP 125/84 04/08/25 08:25 O2 Del Method Room Air 04/08/25 01:35 Documenting provider has reviewed patient's vital signs: yes Common normals: no apparent distress Respiratory Common normals: normal respiratory effort and clear to auscultation bilaterally Cardio Common normals: regular rate and regular rhythm GI Common normals: Normal to inspection, nondistended, normoactive bowel sounds present Extremity Common normals: no clubbing, cyanosis or edema and no calf tenderness Results Labs Labs: Short CBC 04/08/25 Range/Units 06:22 WBC 11.6 H (4.0-11.0) 10^3/uL Hgb 11.8 L (12.0-16.0) g/dL Hct 33.8 L (36.0-48.0) % Plt Count 142 L (150-450) 10^3/uL OB - PN: A/P Plan - Vaginal Delivery day: 1 Plan: routine care, discharge home and follow up 6 weeks Time Spent with Patient Time: Total time spent is greater than 50% in coordination of care (as documented) at patient's floor/unit and/or counseling patient: Total time spent with greater than 50% in coordination of care (as documented) at patient's floor/unit and/or counseling patient: less than 15 minutes
[2025-04-08] MEDS: ACETAMINOPHEN 325 MG TABLET 650 MG PO (09:24)
[2025-04-08] MEDS: DOCUSATE SODIUM 100 MG CAPSULE PO (09:25)
== END 2025-04-08 17:15 | disposition home or self-care (01) | DRG 807 ==
PROVIDERS: Admitting Provider Obstetrics & Gynecology; PCP Family Medicine; Visit Provider Obstetrics & Gynecology
DX: O69.81X0 Labor and delivery complicated by cord around neck, without compression, not applicable or unspecified (principal); Z37.0 Single live birth; Z3A.39 39 weeks gestation of pregnancy
CPT/HCPCS: 36415; 59050; 59410; 80307; 85025; 85027; 86850; 86900; 86901; J0290; J2405; J2795

== ENCOUNTER 2025-04-11 09:21 | Outpatient (OUT) | payer BC, OTHER, SELFPAY ==
--- OUTSIDE RECORDS SUMMARY | 2023-10-27 05:00 | XMS_ITS ---
Author Organization [facility] [place] Address [address] [place] [address] Care Team Providers Care Backend Python Developer Name Role Phone Colt Pierre Primary Care Provider Ofelia Bee Unavailable [phone] Allergies No Known Allergies REASON FOR VISIT [...] Encounters Encounter Location Date Provider Diagnosis [facility] (PODIATRY) [address] [place] [address] [address] [place] [address] 10/27/2023 Ofelia Bee Ingrowing nail L60.0 and [...] * Sidra ORTEGA RDOB:[birth year] (28 yo F)Acc No.[id number]:10/27/2023 New Patient Patient: Sidra Joshua Provider: Toni Bee PA-C :1995 A ge:28 Y S ex:Female Date:10/27/2023 Address:[address], [id number] Pcp:Nadeem Pierre MD Check In:08:44 AM ESTCheck [...] M usculoskeletal: Bone/Joint Symptoms d enies. C retirement Pain d enies.?Leg cramps d enies. N [...] 10/27/2023 Generated for Printi judy/Rigoberto/eTransmitting on: 0 04/11/2025 09:39 AM EDT History and Physical Notes * [...]
--- OUTSIDE RECORDS SUMMARY | 2024-03-01 13:45 | XMS_ITS ---
Author Organization The [facility] in [place] Address [address] [place] [address] Care Team Providers Care Medical Secretary Teacher Name Role Phone Colt Hdez Primary Care Provider [phone] DEANNE HDEZ Unavailable [phone] Allergies No Known Allergies REASON FOR VISIT [...] 03/01/2024 Encounters Encounter Location Date Provider Diagnosis [place] [address] [facility] [place] [address] 03/01/2024 DEANNE HDEZ Neck pain M54.2 Assessments [...] MARIA INES Sidra RDOB:[birth year] (28 yo F)Acc No.[id number]:03/01/2024 Progress Note Patient: Sidra JONES Provider: Kath Hdez M.D. :1995 A ge:28 Y S ex:Female Date:03/01/2024 Address:[facility] [address] [facility] Pcp:Deanne Hdez MD Check In:05:17 PM ESTCheck [...] Procedure Codes: * Preventive Medicine: Screenings/Counseling: B PA ACTION PLAN Above Normal BMI Follow-up D ietary management education, guidance, and counseling * * Sign off status: Completed Visit Status: C HK (Check Out) true * Provider: Kath Hdez M.D. Date: 0 03/01/2024 Generated for Alok kim/Rigoberto/eTransmitting on: 0 04/11/2025 09:39 AM EDT History [...]
--- OUTSIDE RECORDS SUMMARY | 2024-03-04 08:37 | XMS_ITS ---
Author Organization The [facility] in [place] Address [address] [place] [address] Care Team Providers Care Workers Compensation Claims Adjuster Name Role Phone Colt Hdez Primary Care Provider DEANNE HDEZ Unavailable [phone] REASON FOR VISIT XR results Encounters Encounter Location Date Provider Diagnosis [facility] [address] [place] [address] 03/04/2024 DEANNE HDEZ Plan Of Treatment No Information Progress Notes * Sidra ORTEGA RDOB:[birth year] (28 yo F)Acc No.[id number]:03/04/2024 Patient: [place] Arash :1995 A ge:28 Y S ex:Female Address[address] [facility] [address] * true * Date: Generated for Printi ng/Faxing/eTransmitting on: 0 04/11/2025 09:39 AM EDT
--- OUTSIDE RECORDS SUMMARY | 2025-04-11 09:40 | XMS_ITS | Patient Health Record ---
Author Organization The [facility] in [place] Address [address] [place] [address] Care Team Providers Care Dean Of Instruction Name Role Phone Colt Pierre Primary Care Provider [phone] Allergies No Known Allergies Results Component Value Reference Range Notes DRUG SCREEN RAPID (URINE) Reviewed date:10/02/2024 11:02:44 AM Interpretation: Performing Lab: Notes/Report: [facility] , Cannabinoid Screen Urine NEGATIVE NEGATIVE Phencyclidine Screen Urine NEGATIVE NEGATIVE Cocaine Screen Urine NEGATIVE NEGATIVE Methamphetamines Screen Urine NEGATIVE NEGATIVE Opiate Screen Urine NEGATIVE NEGATIVE Amphetamine Screen Urine NEGATIVE NEGATIVE Benzodiazepines Screen Urine NEGATIVE NEGATIVE Tricyclic Antidepressant Urine NEGATIVE NEGATIVE Methadone Screen Urine NEGATIVE NEGATIVE Barbiturates Screen Urine NEGATIVE NEGATIVE Oxycodone Screen Urine NEGATIVE NEGATIVE Buprenorphine Screen Urine NEGATIVE NEGATIVE DRUG CLASS TEST SYSTEM CUT-OFF CONCENTRATIONS ARE FOLLOWS: AMP (Amphetamine): 500 ng/mL BAR (Barbiturates): 200 ng/mL BZO (Benzodiazepines): 150 ng/mL BUP (Buprenorphine): 10 ng/mL KRYS (Cocaine): 150 ng/mL mAMP (Methamphetamine): 500 ng/mL MTD (Methadone): 200 ng/mL OPI (Opiates): 100 ng/mL OXY (Oxycodone): 100 ng/mL PCP (Phencyclidine): 25 ng/mL THC (Cannabinoids): 50 ng/mL TCA (Trycyclic Antidepressants): 300 ng/mL Performing Lab: see note ML - [facility] LB Urine Culture, Routine Reviewed date:02/06/2025 09:41:58 PM Interpretation: Performing Lab: Notes/Report: [facility] , Urine Culture, Routine See Below For Report Urine Culture, Routine Urine Culture, Routine No growth Urine Culture, Routine Urine Culture, Routine Performed at: - [facility] [place] Urine Culture, Routine Urine Culture, Routine [address] [place], [place] [id number] Urine Culture, Routine Urine Culture, Routine Weaver Hand: Bennett Herrera PhD, Phone: [phone] Urine Culture, Routine Performing Lab: see note LC - [facility] LB SEE REPORT - Vocational Rehabilitation Supervisor Id information not found for OBX-specific aerial installer legend US OB amniotic fluid vol Reviewed date:02/03/2025 08:42:48 PM Interpretation: Performing Lab: Notes/Report: Source Facility: [place] [address] [place] [address] Ultrasound Report Signed with Yonny Patient: SIDRA SPANN MR#: [id number] : 1995 Acct:[id number] Age/Sex: 29 / F ADM Date: Loc: [place] [address]- Attending Dr: Giulia Edouard D.O. Ordering Physician: Xi Thomas M.D. Date of Service: 02/02/25 Procedure(s): US OB amniotic fluid vol Accession Number(s): [id number] cc: Xi Thomas M.D.; Nadeem Pierre M.D. ADDENDUM The [place] [address] This is an addendum An intrauterine is identified. The visualized fetus has an estimated gestational age of 29 weeks and 6 days . A heart rate is identified at 168 bpm. A normal amount of amniotic fluid is present. The amniotic fluid index is 14.70 cm. There is no evidence for placenta previa or subchorionic hemorrhage. Pelvic survey reveals no gross abnormalities. The cervix measures 4.6 cm in length. Addendum Dictated By: Darrion Leggett M.D. Addendum Signed By: 02/03/25 1 326 Addendum Cosigned By: DD/ TD/TT: / ADDENDUM US/US OB amniotic fluid vol IMPRESSION: Single live IUP with an estimated gestational age of 29 weeks and 6 days and normal heart rate. The amniotic fluid index is 14.70 cm. The cervix measures 4.6 cm in length. Impression dictated by: Darrion Leggett M.D. 02/03/2025 1:23 PM Dictation Location: [facility] Patient N Electronically authenticated by: [id number] Y Date: 02/03/2025 13:23 deyanira: SIDRA SPANN MRN: [facility]:[id number] date: 1995 Sex: F Assigned Patient Location: [facility] Current Patient Location: Accession/Order Number: [id number] Exam Date: 02/03/2025 13:23 Report Date: 02/03/2025 13:23 At the request of: XI THOMAS MD Procedure: US OB cervical length [place] [address] Patient Name: SIDRA SPANN MRN: [facility]:[id number] date: 1995 Sex: F Assigned Patient Location: [facility] Current Patient Location: [facility] Accession/Order Number: [id number] Exam Date: 02/02/2025 14:22 Report Date: 02/02/2025 14:25 At the request of: IX THOMAS MD Procedure: US OB cervical length US OB amniotic fluid vol, US OB cervical length 02/02/2025 1:04 PM SIGNS AND SYMPTOMS: Possible SROM COMPARISON: None. TECHNIQUE: Limited pelvic ultrasound using transvesical sonography. FINDINGS: An intrauterine is identified. The visualized fetus has an estimated gestational age of 9 weeks and 1 day . A heart rate is identified at 168 bpm. A normal amount of amniotic fluid is present. The amniotic fluid index is 14.70 cm. There is no evidence for placenta previa or subchorionic hemorrhage. Pelvic survey reveals no gross abnormalities. The cervix measures 4.6 cm in length. IMPRESSION: Single live IUP with an estimated gestational age of 9 weeks and 1 day and normal heart rate. The amniotic fluid index is 14.70 cm. The cervix measures 4.6 cm in length. Impression dictated by: Darrion Leggett M.D. 02/02/2025 2:25 PM Dictation Location: [facility] Electronically authenticated by: [id number] Y Date: 02/02/2025 14:25 Addendum Dictated By: Darrion Leggett M.D. Addendum Signed By: 02/03/25 1 326 Addendum Cosigned By: DD/ TD/TT: / [place] [address] Patient Name: SIDRA SPANN MRN: [facility]:[id number] date: 1995 Sex: F Assigned Patient Location: [facility] Current Patient Location: [facility] Accession/Order Number: [id number] Exam Date: 02/02/2025 14:22 Report Date: 02/02/2025 14:25 At the request of: XI THOMAS MD Procedure: US OB cervical length US OB amniotic fluid vol, US OB cervical length 02/02/2025 1:04 PM SIGNS AND SYMPTOMS: Possible SROM COMPARISON: None. TECHNIQUE: Limited pelvic ultrasound using transvesical sonography. FINDINGS: An intrauterine is identified. The visualized fetus has an estimated gestational age of 9 weeks and 1 day . A heart rate is identified at 168 bpm. A normal amount of amniotic fluid is present. The amniotic fluid index is 14.70 cm. There is no evidence for placenta previa or subchorionic hemorrhage. Pelvic survey reveals no gross abnormalities. The cervix measures 4.6 cm in length. US/US OB amniotic fluid vol IMPRESSION: Single live IUP with an estimated gestational age of 9 weeks and 1 day and normal heart rate. The amniotic fluid index is 14.70 cm. The cervix measures 4.6 cm in length. Impression dictated by: Darrion Leggett M.D. 02/02/2025 2:25 PM Dictation Location: [facility] Electronically authenticated by: [id number] Y Date: 02/02/2025 14:25 Dictated By: Darrion Leggett M.D. Signed By: 02/02/25 1427 DD/ 24 TD/TT: Rate Reviewer: [place] [address] Ultrasound Report Signed with Addenda Patient: SIDRA SPANN#: [id number] : 1995 Acct:[id number] Age/Sex: 29 / F ADM Date: Loc: [facility] [address]: Giulia Edouard D.O. Ordering Physician: Xi Thomas M.D. Date of Service: 02/02/25 Procedure(s): US OB amniotic fluid vol Accession Number(s): [id number] cc: Xi Thomas M.D.; Nadeem Pierre M.D. ADDENDUM [place] [address] This is an addendum An intrauterine is identified. The visualized fetus has an estimated gestationa l age of 29 weeks and 6 days . A heart rate is identified at 168 bpm. A normal amount of amniotic fluid is present. The amniotic fluid index is 14.70 cm. There is no evidence for placenta previa or subchorionic hemorrhage. Pelvic survey reveal s no gross abnormalities. The cervix measures 4.6 cm in length. Addendum Dictated By : Darrion Leggett M.D. Addendum Signed By: 02/03/25 1 326 Addendum Cosigned By: DD/ TD/TT: / ADDENDUM / OB amniotic fluid vol IMPRESSION: Single live IUP with an estimated gestational age of 29 weeks and 6 days and normal heart rate. The amniotic fluid index is 14.70 cm. The cervix measures 4.6 cm in length. Impression dictated by: Darrion Leggett M.D. 02/03/2025 1:23 PM Dictation Location: [place] [address] Patient N Electronically authenticated by: [id number] Y Date: 02/03/2025 13:23 deyanira: SIDRA SPANN MRN: [id number] date: 1995 Sex: F Assigned Patient Location: [facility] Current Patient Location: Accession/Order Number: [id number] Exam Date: 02/03/2025 13:23 Report Date: 02/03/2025 13:23 At the request of: XI THOMAS MD Procedure: US OB cervical length [address] [id number] Patient Name: SIDRA SPANN MRN: [id number] date: 1995 Sex: F Assigned Patient Location: [facility] Current Patient Location: [facility] Accession/Order Number: [id number] Exam Date: 02/02/2025 14:22 Report Date: 02/02/2025 14:25 At the request of: XI THOMAS MD Procedure: US OB cervical length US OB amniotic fluid vol, US OB cervical length 02/02/2025 1:04 PM SIGNS AND SYMPTOMS: Possible SROM COMPARISON: None. TECHNIQUE: Limited pelvic ultrasound using transvesical sonography. FINDINGS: An intrauterine is identified. The visualized fetus has an estimated gestationa l age of 9 weeks and 1 day . A heart rate is identified at 168 bpm. A normal amount of amniotic fluid is present. The amniotic fluid index is 14.70 cm. There is no evidence for placenta previa or subchorionic hemorrhage. Pelvic survey reveal s no gross abnormalities. The cervix measures 4.6 cm in length. IMPRESSION: Single live IUP with an estimated gestational age of 9 weeks and 1 day and normal heart rate. The amniotic fluid index is 14.70 cm. The cervix measures 4.6 cm in length. Impression dictated by: Darrion Leggett M.D. 02/02/2025 2:25 PM Dictation Location: [place] [address] Electronically authenticated by: [id number] Y Date: 02/02/2025 14:25 Addendum Dictated By : Darrion Leggett M.D. Addendum Signed By: 02/03/25 1 326 Addendum Cosigned By: DD/ TD/TT: / [address] [address] Patient Name: SIDRA SPANN MRN: [id number] date: 1995 Sex: F Assigned Patient Location: [facility] Current Patient Location: [facility] Accession/Order Number: [id number] Exam Date: 02/02/2025 14:22 Report Date: 02/02/2025 14:25 At the request of: XI THOMAS MD Procedure: US OB cervical length US OB amniotic fluid vol, US OB cervical length 02/02/2025 1:04 PM SIGNS AND SYMPTOMS: Possible SROM COMPARISON: None. TECHNIQUE: Limited pelvic ultrasound using transvesical sonography. FINDINGS: An intrauterine is identified. The visualized fetus has an estimated gestationa l age of 9 weeks and 1 day . A heart rate is identified at 168 bpm. A normal amount of amniotic fluid is present. The amniotic fluid index is 14.70 cm. There is no evidence for placenta previa or subchorionic hemorrhage. Pelvic survey reveal s no gross abnormalities. The cervix measures 4.6 cm in length. US/US OB amniotic fluid vol IMPRESSION: Single live IUP with an estimated gestational age of 9 weeks and 1 day and normal heart rate. The amniotic fluid index is 14.70 cm. The cervix measures 4.6 cm in length. Impression dictated by: Darrion Leggett M.D. 02/02/2025 2:25 PM Dictation Location: [facility] Electronically authenticated by: [id number] Y Date: 02/02/2025 14:25 Dictated By: Darrion Leggett M.D. Signed By: 02/02/25 1427 DD/ 1425 TD/TT: Rate Reviewer: Strep Gp B Culture+Rflx Reviewed date:03/20/2025 03:11:22 PM Interpretation: Performing Lab: Notes/Report: [facility] , Strep Gp B Culture+Rflx See Below For Report Strep Gp B Culture+Rflx Strep Gp B Culture+Rflx Negative Strep Gp B Culture+Rflx Strep Gp B Culture+Rflx Centers for Dise ase Control and Prevention (CDC) and Strep Gp B Culture+Rflx Strep Gp B Culture+Rflx [place] [employer] Strep Gp B Culture+Rflx Strep Gp B Culture+Rflx (ACOG) guideline s for prevention of group B Strep Gp B Culture+Rflx Strep Gp B Culture+Rflx streptococcal (G BS) disease specify co-collection of Strep Gp B Culture+Rflx Strep Gp B Culture+Rflx a vaginal and re ctal swab specimen to maximize Strep Gp B Culture+Rflx Strep Gp B Culture+Rflx sensitivity of G BS detection. Per the CDC and ACOG, Strep Gp B Culture+Rflx Strep Gp B Culture+Rflx swabbing both th e lower vagina and rectum Strep Gp B Culture+Rflx Strep Gp B Culture+Rflx substantially increases the yield of detection Strep Gp B Culture+Rflx Strep Gp B Culture+Rflx compared with sa mpling the vagina alone. Strep Gp B Culture+Rflx Strep Gp B Culture+Rflx Penicillin G, ampicillin, or cefazolin are indicated Strep Gp B Culture+Rflx Strep Gp B Culture+Rflx for intrapartum prophylaxis of GBS Strep Gp B Culture+Rflx Strep Gp B Culture+Rflx colonization. Re flex susceptibility testing should be Strep Gp B Culture+Rflx Strep Gp B Culture+Rflx performed prior to use of clindamycin only on GBS Strep Gp B Culture+Rflx Strep Gp B Culture+Rflx isolates from penicillin-allergic women who are Strep Gp B Culture+Rflx Strep Gp B Culture+Rflx considered a hig h risk for anaphylaxis. Treatment with Strep Gp B Culture+Rflx Strep Gp B Culture+Rflx vancomycin witho ut additional testing is warranted if Strep Gp B Culture+Rflx Strep Gp B Culture+Rflx resistance to clindamycin is noted. Strep Gp B Culture+Rflx Strep Gp B Culture+Rflx Performed at: [facility] Strep Gp B Culture+Rflx Strep Gp B Culture+Rflx [address] [place], [place] [phone] Strep Gp B Culture+Rflx Strep Gp B Culture+Rflx Weaver Hand: Clarice Herrera PhD, Phone: [phone] Strep Gp B Culture+Rflx Performing Lab: see note - [facility] LB SEE REPORT - Vocational Rehabilitation Supervisor Id information not found for OBX-specific aerial installer legend DRUG SCREEN RAPID (URINE) Reviewed date:04/07/2025 04:15:25 PM Interpretation: Performing Lab: Notes/Report: [facility] , Cannabinoid Screen Urine NEGATIVE NEGATIVE Phencyclidine Screen Urine NEGATIVE NEGATIVE Cocaine Screen Urine NEGATIVE NEGATIVE Methamphetamines Screen Urine NEGATIVE NEGATIVE Opiate Screen Urine NEGATIVE NEGATIVE Amphetamine Screen Urine NEGATIVE NEGATIVE Benzodiazepines Screen Urine NEGATIVE NEGATIVE Tricyclic Antidepressant Urine NEGATIVE NEGATIVE Methadone Screen Urine NEGATIVE NEGATIVE Barbiturates Screen Urine NEGATIVE NEGATIVE Oxycodone Screen Urine NEGATIVE NEGATIVE Buprenorphine Screen Urine NEGATIVE NEGATIVE DRUG CLASS TEST SYSTEM CUT-OFF CONCENTRATIONS ARE FOLLOWS: AMP (Amphetamine): 500 ng/mL BAR (Barbiturates): 200 ng/mL BZO (Benzodiazepines): 150 ng/mL BUP (Buprenorphine): 10 ng/mL KRYS (Cocaine): 150 ng/mL mAMP (Methamphetamine): 500 ng/mL MTD (Methadone): 200 ng/mL OPI (Opiates): 100 ng/mL OXY (Oxycodone): 100 ng/mL PCP (Phencyclidine): 25 ng/mL THC (Cannabinoids): 50 ng/mL TCA (Trycyclic Antidepressants): 300 ng/mL Performing Lab: see note ML - [facility] LB CBC no Diff (Hemogram) Reviewed date:04/07/2025 04:15:26 PM Interpretation: Performing Lab: Notes/Report: [facility] , White Blood Count 8.1 4.0-11.0 10 3/uL Red Blood Count 3.87 4.20-5.40 10 6/uL Hemoglobin 13.2 12.0-16.0 g/dL Hematocrit 37.1 36.0-48.0 % Mean Corpuscular Volume 95.9 81.0-99.0 fL Mean Corpuscular Hemoglobin 34.1 26.7-34.0 pg Mean Corpuscular HGB Conc 35.6 29.9-35.2 g/dL Red Cell Distribution Width 12.0 11.0-15.0 % Platelet Count 170 150-450 10 3/uL Mean Platelet Volume 11.6 9.5-13.5 fL Performing Lab: see note ML - [facility] LB Type and Screen Reviewed date:04/07/2025 04:15:26 PM Interpretation: Performing Lab: Notes/Report: [facility] , Blood Type A Positive Antibody Screen NEGATIVE CBC AUTO DIFF Reviewed date:04/09/2025 02:39:33 PM Interpretation: Performing Lab: Notes/Report: [facility] , White Blood Count 11.6 4.0-11.0 10 3/uL Red Blood Count 3.44 4.20-5.40 10 6/uL Hemoglobin 11.8 12.0-16.0 g/dL Hematocrit 33.8 36.0-48.0 % Mean Corpuscular Volume 98.3 81.0-99.0 fL Mean Corpuscular Hemoglobin 34.3 26.7-34.0 pg Mean Corpuscular HGB Conc 34.9 29.9-35.2 g/dL Red Cell Distribution Width 12.2 11.0-15.0 % Platelet Count 142 150-450 10 3/uL Mean Platelet Volume 11.3 9.5-13.5 fL Neutrophils Percent Auto 78.8 43.0-75.0 % Lymphocytes Percent Auto 12.9 20.5-60.0 % Monocytes Percent Auto 7.1 1.7-12.0 % Eosinophils Percent Auto 0.5 0.9-7.0 % Basophils Percent Auto 0.2 0.2-2.0 % Immature Granulocytes Pct Auto 0.5 0.0-0.5 % Neutrophils Absolute Auto 9.2 1.4-6.5 10 3/uL Lymphocytes Absolute Auto 1.5 1.2-3.8 10 3/uL Monocytes Absolute Auto 0.8 0.3-0.8 10 3/uL Eosinophils Absolute Auto 0.1 0.0-0.7 10 3/uL Basophils Absolute Auto 0.0 0.0-0.1 10 3/uL Immature Granulocytes Abs Auto 0.06 0.00-0.03 10 3/uL Performing Lab: see note ML - [facility] LB UA (CLEAN or CATCH) IRRIGATION EQUIPMENT INSTALLER or M ICRO IF IND. Reviewed date:02/02/2025 06:36:27 PM Interpretation: Performing Lab: Notes/Report: [facility] , Color Urine LT. YELLOW YELLOW Clarity Urine CLEAR CLEAR Specific [place] Urine 1.010 1.005-1.025 pH Urine 7.5 5.0-9.0 Protein Urine NEGATIVE NEG/TRACE mg/dL Glucose Urine UA NEGATIVE NEGATIVE mg/dL Bilirubin Urine NEGATIVE NEGATIVE Ketones Urine NEGATIVE NEGATIVE mg/dL Blood Urine NEGATIVE NEGATIVE Nitrite Urine NEGATIVE NEGATIVE Urobilinogen Urine 1.0 0.2-1.0 EU/dL Leukocyte Esterase Urine MODERATE NEGATIVE Urine Microscopic Indicated YES Performing Lab: see note ML - [facility] LB Glucose 1 Hour Reviewed date:01/18/2025 12:19:55 PM Interpretation: Performing Lab: Notes/Report: [facility] , Glucose 1 Hour 80 <130 mg/dL Performing Lab: see note - [facility] LB CBC AUTO DIFF Reviewed date:01/18/2025 12:19:55 PM Interpretation: Performing Lab: Notes/Report: [facility] , White Blood Count 6.4 4.0-11.0 10 3/uL Red Blood Count 3.39 4.20-5.40 10 6/uL Hemoglobin 11.6 12.0-16.0 g/dL Hematocrit 32.8 36.0-48.0 % Mean Corpuscular Volume 96.8 81.0-99.0 fL Mean Corpuscular Hemoglobin 34.2 26.7-34.0 pg Mean Corpuscular HGB Conc 35.4 29.9-35.2 g/dL Red Cell Distribution Width 12.6 11.0-15.0 % Platelet Count 175 150-450 10 3/uL Mean Platelet Volume 10.1 9.5-13.5 fL Neutrophils Percent Auto 74.7 43.0-75.0 % Lymphocytes Percent Auto 16.4 20.5-60.0 % Monocytes Percent Auto 7.2 1.7-12.0 % Eosinophils Percent Auto 0.9 0.9-7.0 % Basophils Percent Auto 0.3 0.2-2.0 % Immature Granulocytes Pct Auto 0.5 0.0-0.5 % Neutrophils Absolute Auto 4.7 1.4-6.5 10 3/uL Lymphocytes Absolute Auto 1.0 1.2-3.8 10 3/uL Monocytes Absolute Auto 0.5 0.3-0.8 10 3/uL Eosinophils Absolute Auto 0.1 0.0-0.7 10 3/uL Basophils Absolute Auto 0.0 0.0-0.1 10 3/uL Immature Granulocytes Abs Auto 0.03 0.00-0.03 10 3/uL Performing Lab: see note ML - [facility] LB IGP,Aptima HPV,Age Gdln Reviewed date:11/22/2024 08:58:20 PM Interpretation: Performing Lab: Notes/Report: SPATULA-ALONE C[facility]IX [facility] , Age Gdln ACOG Testing Note . TESTS RESULT FLAG UNITS REF RANGE LAB Clinician Provided Cytology Information Source.............Cerv ix Other..............Preg nant No. of containers..01 ThinPrep Vial Age Mouna MAN Sunita... 3065 FLAG LEGEND: L-Low Normal,H-High Normal,LL-Alert Low,HH-Alert High <-Panic Low,>-Panic High,A-Abnormal,AA-Crit ical Abnormal Performed at: 01 =G [address] [address] Senait Shook MD, IGP, Aptima HPV, rfx 16/18,45 Note . TESTS RESULT FLAG UNITS REF RANGE LAB DIAGNOSIS: 02 NEGATIVE FOR INTRAEPITHELIAL LESION OR MALIGNANCY. THIS SPECIMEN WAS RESCREENED PART OF OUR CLIENT SERVICES ADMINISTRATOR PROGRAM. Specimen adequacy: 02 Satisfactory for evaluation. No endocervical component is identified. An endocervical component is not commonly seen in the patient. Performed by: 02 Graciela Sorenson Porcelain Buildup Assistant QC reviewed by: 02 Sly Leung Porcelain Buildup Assistant ([facility]) . 02 Note: Note 02 The [...] L-Low Normal,H-High Normal,LL-Alert Low,HH-Alert High <-Panic Low,>-Panic High,A-Abnormal,AA-Crit ical Abnormal Performed at: [address] [address] Senait Shook MD, HPV Aptima Negative Negative This nucleic acid amplification test detects fourteen high- risk HPV types (16,18,31,33,35,39,45,5 1,52,56,58,59,66,68) without differentiation. Performed at: = - [address] [id number] Weaver Hand: Senait Shook MD, Phone: [phone] Performed at: [address] [id number] Weaver Hand: Senait Shook MD, Phone: [phone] Performing Lab: see note LC - [facility] LB Box Test Reviewed date:10/02/2024 11:02:44 AM Interpretation: Performing Lab: Notes/Report: [facility] BOX [facility] , BOX Test Sent Out UNITY BOX Test Reference Lab UNITY BOX Test Date Sent 10/01/2024 Performing Lab: see note - [facility] LB Urine Culture, Routine Reviewed date:10/03/2024 09:39:08 AM Interpretation: Performing Lab: Notes/Report: [facility] , Urine Culture, Routine See Below For Report Urine Culture, Routine Urine Culture, Routine Mixed urogenital janet Urine Culture, Routine Urine Culture, Routine 10,000-25,000 col dara forming units per mL Urine Culture, Routine Urine Culture, Routine Performed at: [facility] Urine Culture, Routine Urine Culture, Routine [address] [place] [id number] Urine Culture, Routine Urine Culture, Routine Weaver Hand: Bennett Herrera PhD, Phone: [phone] Urine Culture, Routine Performing Lab: see note - [facility] LB SEE REPORT - Vocational Rehabilitation Supervisor Id information not found for OBX-specific aerial installer legend HBsAg Screen Reviewed date:10/03/2024 09:39:08 AM Interpretation: Performing Lab: Notes/Report: [facility] , HBsAg Screen Negative Negative Performed at: [address] [id number] Weaver Hand: Ramon Herrera PhD, Phone: [phone] Performing Lab: see note Ivette DÍAZ HCV Antibody RFX to Quant PC R Reviewed date:10/02/2024 11:02:44 AM Interpretation: Performing Lab: Notes/Report: [facility] , HCV Ab Non Reactive Non Reactive Interpretation: Comment . Not infected with HCV unless early or acute infection is suspected (which may be delayed in an immunocompromised individual), or other evidence exists to indicate HCV infection. Performed at: [address] [id number] Weaver Hand: Ramon Herrera PhD, Phone: [phone] Performing Lab: see note [facility] ARJUN Rapid Plasma Reagin, Quant Reviewed date:10/03/2024 09:39:08 AM Interpretation: Performing Lab: Notes/Report: [facility] , Rapid Plasma Reagin, Quant Non Reactive NonRea<1:1 titer Please Note: This test does not meet current guidelines for screening and diagnosis of syphilis. This test is intended for following treatment response in patients being treated for syphilis infection. To screen for syphilis infection, a reflex cascade that includes both RPR and a treponema-specific assay should be utilized, such as Treponema pallidum (Syphilis) Screening [place] (468655) or Rapid Plasma Reagin (RPR) Test With Reflex to Quantitative RPR and Confirmatory Treponema pallidum Antibodies (510266). Performed at: [address] [id number] Weaver Hand: Ramon Herrera PhD, Phone: [phone] Performing Lab: see note [facility] HIV Ab/p24 Ag with Reflex Reviewed date:10/02/2024 11:02:44 AM Interpretation: Performing Lab: Notes/Report: [facility] , HIV Ab/p24 Ag Screen Non Reactive Non Reactive HIV-1/HIV-2 antibodies and HIV-1 p24 antigen were NOT detected. There is no laboratory evidence of HIV infection. HIV Negative Performed at: [address] [id number] Weaver Hand: Ramon Herrera PhD, Phone: [phone] Performing Lab: see note [facility] LB Type and Screen Reviewed date:10/02/2024 11:02:44 AM Interpretation: Performing Lab: Notes/Report: [facility] , Blood Type A Positive Antibody Screen NEGATIVE RUBELLA AB IGG Reviewed date:10/02/2024 11:02:44 AM Interpretation: Performing Lab: Notes/Report: [facility] , Rubella Antibodies, IgG 6.47 Immune > 0.99 index Non-immune <0.90 Equivocal 0.90 - 0.99 Immune >0.99 Performed at: [address] [id number] Weaver Hand: Ramon Herrera PhD, Phone: [phone] Performing Lab: see note [facility] GLYCOHEMOGLOBIN A1C Reviewed date:10/02/2024 11:02:44 AM Interpretation: Performing Lab: Notes/Report: [facility] , Glycohemoglobin A1C 4.7 4.5-6.2 % ADA RECOMMENDED LIMIT 4.0 - 6.0 ADA THERAPEUTIC TARGET < 7.0 ACTION SUGGESTED > 7.0 Estimated Average Glucose 88 Performing Lab: see note [facility] CBC AUTO DIFF Reviewed date:10/02/2024 11:02:44 AM Interpretation: Performing Lab: Notes/Report: [facility] , White Blood Count 7.4 4.0-11.0 10 3/uL Red Blood Count 4.13 4.20-5.40 10 6/uL Hemoglobin 13.2 12.0-16.0 g/dL Hematocrit 37.8 36.0-48.0 % Mean Corpuscular Volume 91.5 81.0-99.0 fL Mean Corpuscular Hemoglobin 32.0 26.7-34.0 pg Mean Corpuscular HGB Conc 34.9 29.9-35.2 g/dL Red Cell Distribution Width 11.6 11.0-15.0 % Platelet Count 248 150-450 10 3/uL Mean Platelet Volume 10.0 9.5-13.5 fL Neutrophils Percent Auto 66.4 43.0-75.0 % Lymphocytes Percent Auto 27.2 20.5-60.0 % Monocytes Percent Auto 5.1 1.7-12.0 % Eosinophils Percent Auto 0.7 0.9-7.0 % Basophils Percent Auto 0.3 0.2-2.0 % Immature Granulocytes Pct Auto 0.3 0.0-0.5 % Neutrophils Absolute Auto 4.9 1.4-6.5 10 3/uL Lymphocytes Absolute Auto 2.0 1.2-3.8 10 3/uL Monocytes Absolute Auto 0.4 0.3-0.8 10 3/uL Eosinophils Absolute Auto 0.1 0.0-0.7 10 3/uL Basophils Absolute Auto 0.0 0.0-0.1 10 3/uL Immature Granulocytes Abs Auto 0.02 0.00-0.03 10 3/uL Performing Lab: see note ML - [facility] US OB transvaginal Reviewed date:11/11/2024 02:42:48 PM Interpretation: Performing Lab: Notes/Report: Source Facility: [place] [address] [place] [address] Ultrasound Report Signed Patient: SIDRA SPANN MR#: [id number] : 1995 Acct:[id number] Age/Sex: 28 / F ADM Date: 09/10/24 Loc: [facility] Attending Dr: Giulia Edouard D.O. Ordering Physician: Giulia Edouard D.O. Date of Service: 09/10/24 Procedure(s): US OB transvaginal Accession Number(s): [id number] cc: Giulia Edouard D.O.; Nadeem Pierre M.D. The [address] [address] Patient Name: SIDRA SPANN MRN: [id number] date: 1995 Sex: F Assigned Patient Location: [facility] Current Patient Location: LAB Accession/Order Number: [id number] Exam Date: 09/10/2024 08:06 Report Date: 09/10/2024 [...] Dictated By: Marbin Mckeon M.D. Signed By: 11/11/24 1227 DD/ TD/TT: Rate Reviewer: [place] [address] Ultrasound Report Signed Patient: SIDRA SPANN MR#: [id number] : 1995 Acct:[id number] Age/Sex: 28 / F ADM Date: 09/10/24 Loc: [facility] Attending Dr: Giulia Edouard D.O. Ordering Physician: Giulia Edouard D.O. Date of Service: 09/10/24 Procedure(s): US OB transvaginal Accession Number(s): [id number] cc: Giulia Edouard D.O. ; Nadeem Pierre M.D. The [place] [address] Patient Name: SIDRA SPANN MRN: [id number] date: 1995 Sex: F Assigned Patient Location: [facility] Current Patient Location: LAB Accession/Order Number: [id number] Exam Date: 08:06 Report Date: 09/10/2024 09:47 At the request of: GIULIA EDOUARD Procedure: US OB transvaginal EXAMINATION: US OB transvaginal HISTORY: MISSED MENSES COMPARISON: No relevant comparison available. FINDINGS: Lim intrauteri ne gestation Gestational sac: 5.1 7 cm, 11 weeks 2 days CRL: 2.49 cm, 9 week s 1 day Yolk sac: 4.8 mm Heart rate: 168 bpm Cervix: Closed, 4.6 cm Clinical age: 9 week s 1 day Clinical ANGELA: 04/14/2025 Ultrasound age: 9 weeks 1 day Ultrasound ANEGLA: 04/14/2025 US/US OB transvaginal IMPRESSION: Viable lim intrauterine gestation measuring 9 weeks 1 day Electronically authenticated by: MARBIN MCKEON Date: 09/10/2024 09:47 Dictated By: Marbin Mckeon M.D. Signed By: 11/11/24 1227 DD/ 0947 TD/TT: Rate Reviewer: US OB cervical length Reviewed date:02/03/2025 08:42:48 PM Interpretation: Performing Lab: Notes/Report: Source Facility: [place] [address] [place] [address] Ultrasound Report Signed with Yonny Patient: SIDRA SPANN MR#: [id number] : 1995 Acct:[id number] Age/Sex: 29 / F ADM Date: Loc: [facility] 252-[address]: Giulia Edouard D.O. Ordering Physician: Xi Thomas M.D. Date of Service: 02/02/25 Procedure(s): US OB cervical length Accession Number(s): [id number] cc: Xi Thomas M.D.; Nadeem Pierre M.D. ADDENDUM The [place] [address] This is an addendum An intrauterine is identified. The visualized fetus has an estimated gestational age of 29 weeks and 6 days . A heart rate is identified at 168 bpm. A normal amount of amniotic fluid is present. The amniotic fluid index is 14.70 cm. There is no evidence for placenta previa or subchorionic hemorrhage. Pelvic survey reveals no gross abnormalities. The cervix measures 4.6 cm in length. Addendum Dictated By: Darrion Leggett M.D. Addendum Signed By: 02/03/25 1 326 Addendum Cosigned By: DD/ TD/TT: / ADDENDUM US/US OB cervical length IMPRESSION: Single live IUP with an estimated gestational age of 29 weeks and 6 days and normal heart rate. The amniotic fluid index is 14.70 cm. The cervix measures 4.6 cm in length. Impression dictated by: Darrion Leggett M.D. 02/03/2025 1:23 PM Dictation Location: [facility] Patient N Electronically authenticated by: [id number] Y Date: 02/03/2025 13:23 deyanira: SIDRA SPANN MRN: [id number] date: 1995 Sex: F Assigned Patient Location: [facility] Current Patient Location: Accession/Order Number: [id number] Exam Date: 02/03/2025 13:23 Report Date: 02/03/2025 13:23 At the request of: XI THOMAS MD Procedure: US OB cervical length [place] [id number] Patient Name: SIDRA SPANN MRN: [facility]:[id number] date: 1995 Sex: F Assigned Patient Location: [facility] Current Patient Location: [facility] Accession/Order Number: [id number] Exam Date: 02/02/2025 14:22 Report Date: 02/02/2025 14:25 At the request of: XI THOMAS MD Procedure: US OB cervical length US OB amniotic fluid vol, US OB cervical length 02/02/2025 1:04 PM SIGNS AND SYMPTOMS: Possible SROM COMPARISON: None. TECHNIQUE: Limited pelvic ultrasound using transvesical sonography. FINDINGS: An intrauterine is identified. The visualized fetus has an estimated gestational age of 9 weeks and 1 day . A heart rate is identified at 168 bpm. A normal amount of amniotic fluid is present. The amniotic fluid index is 14.70 cm. There is no evidence for placenta previa or subchorionic hemorrhage. Pelvic survey reveals no gross abnormalities. The cervix measures 4.6 cm in length. IMPRESSION: Single live IUP with an estimated gestational age of 9 weeks and 1 day and normal heart rate. The amniotic fluid index is 14.70 cm. The cervix measures 4.6 cm in length. Impression dictated by: Darrion Leggett M.D. 02/02/2025 2:25 PM Dictation Location: [place] [address] Electronically authenticated by: [id number] Y Date: 02/02/2025 14:25 Addendum Dictated By: Darrion Leggett M.D. Addendum Signed By: 02/03/25 1 326 Addendum Cosigned By: DD/ TD/TT: / [place] [id number] Patient Name: SIDRA SPANN MRN: [id number] date: 1995 Sex: F Assigned Patient Location: [facility] Current Patient Location: [facility] Accession/Order Number: [id number] Exam Date: 02/02/2025 14:22 Report Date: 02/02/2025 14:25 At the request of: XI THOMAS MD Procedure: US OB cervical length US OB amniotic fluid vol, US OB cervical length 02/02/2025 1:04 PM SIGNS AND SYMPTOMS: Possible SROM COMPARISON: None. TECHNIQUE: Limited pelvic ultrasound using transvesical sonography. FINDINGS: An intrauterine is identified. The visualized fetus has an estimated gestational age of 9 weeks and 1 day . A heart rate is identified at 168 bpm. A normal amount of amniotic fluid is present. The amniotic fluid index is 14.70 cm. There is no evidence for placenta previa or subchorionic hemorrhage. Pelvic survey reveals no gross abnormalities. The cervix measures 4.6 cm in length. US/US OB cervical length IMPRESSION: Single live IUP with an estimated gestational age of 9 weeks and 1 day and normal heart rate. The amniotic fluid index is 14.70 cm. The cervix measures 4.6 cm in length. Impression dictated by: Darrion Leggett M.D. 02/02/2025 2:25 PM Dictation Location: [place] [address] Electronically authenticated by: [id number] Y Date: 02/02/2025 14:25 Dictated By: Darrion Leggett M.D. Signed By: 02/02/25 1428 DD/ 24 TD/TT: Rate Reviewer: [place] [address] Ultrasound Report Signed with Addenda Patient: SIDRA SPANN MR#: [id number] : 1995 Acct:[id number] Age/Sex: 29 / F ADM Date: Loc: [facility] Attending Dr: Giulia Edouard D.O. Ordering Physician: Xi Thomas M.D. Date of Service: 02/02/25 Procedure(s): US OB cervical length Accession Number(s): [id number] cc: Xi Thomas M.D.; Nadeem Pierre M.D. ADDENDUM The [place] [address] This is an addendum An intrauterine is identified. The visualized fetus has an estimated gestationa l age of 29 weeks and 6 days . A heart rate is identified at 168 bpm. A normal amount of amniotic fluid is present. The amniotic fluid index is 14.70 cm. There is no evidence for placenta previa or subchorionic hemorrhage. Pelvic survey reveal s no gross abnormalities. The cervix measures 4.6 cm in length. Addendum Dictated By : Darrion Leggett M.D. Addendum Signed By: 02/03/25 1 326 Addendum Cosigned By: DD/ TD/TT: / ADDENDUM US/US OB cervical length IMPRESSION: Single live IUP with an estimated gestational age of 29 weeks and 6 days and normal heart rate. The amniotic fluid index is 14.70 cm. The cervix measures 4.6 cm in length. Impression dictated by: Darrion Leggett M.D. 02/03/2025 1:23 PM Dictation Location: [id number] Patient N Electronically authenticated by: [id number] Y Date: 02/03/2025 13:23 deyanira: SIDRA SPANN MRN: [id number] date: 1995 Sex: F Assigned Patient Location: [facility] Current Patient Location: Accession/Order Number: [id number] Exam Date: 02/03/2025 13:23 Report Date: 02/03/2025 13:23 At the request of: XI THOMAS MD Procedure: US OB cervical length [place] [id number] Patient Name: SIDRA SPANN MRN: [id number] date: 1995 Sex: F Assigned Patient Location: [facility] Current Patient Location: [facility] Accession/Order Number: [id number] Exam Date: 02/02/2025 14:22 Report Date: 02/02/2025 14:25 At the request of: XI THOMAS MD Procedure: US OB cervical length US OB amniotic fluid vol, US OB cervical length 02/02/2025 1:04 PM SIGNS AND SYMPTOMS: Possible SROM COMPARISON: None. TECHNIQUE: Limited pelvic ultrasound using transvesical sonography. FINDINGS: An intrauterine is identified. The visualized fetus has an estimated gestationa l age of 9 weeks and 1 day . A heart rate is identified at 168 bpm. A normal amount of amniotic fluid is present. The amniotic fluid index is 14.70 cm. There is no evidence for placenta previa or subchorionic hemorrhage. Pelvic survey reveal s no gross abnormalities. The cervix measures 4.6 cm in length. IMPRESSION: Single live IUP with an estimated gestational age of 9 weeks and 1 day and normal heart rate. The amniotic fluid index is 14.70 cm. The cervix measures 4.6 cm in length. Impression dictated by: Darrion Leggett M.D. 02/02/2025 2:25 PM Dictation Location: [place] [address] Electronically authenticated by: [id number] Y Date: 02/02/2025 14:25 Addendum Dictated By : Darrion Leggett M.D. Addendum Signed By: 02/03/25 1 326 Addendum Cosigned By: DD/ TD/TT: / [address] [address] Patient Name: SIDRA SPANN MRN: [id number] date: 1995 Sex: F Assigned Patient Location: [facility] Current Patient Location: [facility] Accession/Order Number: [id number] Exam Date: 02/02/2025 14:22 Report Date: 02/02/2025 14:25 At the request of: XI THOMAS MD Procedure: US OB cervical length US OB amniotic fluid vol, US OB cervical length 02/02/2025 1:04 PM SIGNS AND SYMPTOMS: Possible SROM COMPARISON: None. TECHNIQUE: Limited pelvic ultrasound using transvesical sonography. FINDINGS: An intrauterine is identified. The visualized fetus has an estimated gestationa l age of 9 weeks and 1 day . A heart rate is identified at 168 bpm. A normal amount of amniotic fluid is present. The amniotic fluid index is 14.70 cm. There is no evidence for placenta previa or subchorionic hemorrhage. Pelvic survey reveal s no gross abnormalities. The cervix measures 4.6 cm in length. US/US OB cervical length IMPRESSION: Single live IUP with an estimated gestational age of 9 weeks and 1 day and normal heart rate. The amniotic fluid index is 14.70 cm. The cervix measures 4.6 cm in length. Impression dictated by: Darrion Leggett M.D. 02/02/2025 2:25 PM Dictation Location: [place] [address] Electronically authenticated by: [id number] Y Date: 02/02/2025 14:25 Dictated By: Darrion Leggett M.D. Signed By: 02/02/25 1428 DD/ 24 TD/TT: Rate Reviewer: Marc* Reviewed date:02/02/2025 06:36:28 PM Interpretation: Performing Lab: Notes/Report: [facility] , Amnisure NEGATIVE NEGATIVE Performing Lab: see note ML - [facility] LB URINE MICROSCOPIC ONLY Reviewed date:02/02/2025 06:36:27 PM Interpretation: Performing Lab: Notes/Report: [facility] , WBC Urine 2-5 NONE SEEN #/HPF RBC Urine 0-2 0-2 #/HPF Bacteria Urine MODERATE NONE SEEN #/HPF Mucus Urine NONE SEEN NONE SEEN Squamous Epithelial Cell Urine MODERATE NONE/RARE #/LPF Crystals Seen? None Seen None Seen #/HPF Cast Seen? NONE SEEN NONE SEEN #/LPF Urine Culture Indicated YES- Performing Lab: see note ML - [facility] LB AFP, Serum, Open Spina Bifid a Reviewed date:12/12/2024 09:38:49 AM Interpretation: Performing Lab: Notes/Report: N N LMP [id number] 6 16 N 1 186 N N N N N White/ [facility] , Results Report . Test Results: *Screen Negative* . Gest. Age on Collection Date 22.1 . weeks Gestat. Age Based On LMP . Recalculations are not recommended when gestational dating by LMP and ultrasound are within 10 days. [age]EL[age] 30.4 [age] yr Race . Weight 186 . lbs Insulin Dep Diabetes No . Multiple Gestation No . AFP Value 82.3 . ng/mL AFP MoM 1.26 . OSBR Risk 1 IN 5411 . Interpretation Comment . Interpretation: Screen Negative This result is screen negative for OSB. The AFP MoM calculated is based on the gestational age provided. MS-AFP can identify up to 80% of open neural tube defects. Closed neural tube defects and some open defects may not be detected by this test. This test does not screen for Down Syndrome or Trisomy 18. If screening for Down Syndrome or Trisomy 18 is desired, contact [facility] to discuss available options. The [employer] recommends amniocentesis be offered to women age 35 and older. Comment: Comment . Claudia Vega, Ph.D., [facility] Director References: Available Upon Request. Multiples Of Median Cutoffs For AFP Elevations Lim 2.5 Black 2.8 IDD 2.0 Twins 4.5 Abbreviation Definitions IDD - Insulin Dep Diabetes OSBR - Open Spina Bifida Risk For further inquiries contact [employer] [facility] at [phone]. This test was developed and its performance characteristics determined by [facility]. It has not been cleared or approved by the Food and Drug Administration. Performed at: TG - [facility] [address], [place] [id number] [place] Hand: Janine Melissa [facility], Phone: [phone] Performing Lab: see note LC - [facility] LB Reason For Referral No Information Medications Medication SIG (Take, Route, Fr equency, [...] Notes Problem Neck pain (M54.2) Active confirmed Plan Of Treatment Pending Test Test Name Order Date XR CSPINE MIN 4 VIEWS 03/01/2024 Insurance Providers Payer Name Payer Address Payer Phone Subscriber Number Group Number Insured Name Patient Relationship to Insured Coverage Start Date Coverage End Date [employer] PPO PLUS LOCAL PLAN [address] [place] [phone] [id number] Sidra Spann Self - patient is the insured 3
--- OUTSIDE RECORDS SUMMARY | 2025-04-11 09:40 | XMS_ITS ---
Author Organization [facility] Source Produ ction (ClinicalSummary Clone) Address Unknown Care Team Providers Care Devops Architect Name Role Phone Unavailable Primary Care Physician Unavailab le Results * [UNITY] ANEUPLOIDY NIPT Performed by: [facility] Value Range Date Fraction 12.1% 10/09/2024 06 :31 am [facility] Sex Chromosome Aneuploidy NOT DETECTED 06:31 am [facility] Monosomy X LOW RISK <1 in 10,000 2024 06:31 am [facility] Trisomy 13 LOW RISK <1 in 10,000 2024 06:31 am [facility] Trisomy 18 LOW RISK <1 in 10,000 2024 06:31 am [facility] Trisomy 21 LOW RISK <1 in 10,000 2024 06:31 am [facility] Sex NOT ORDERED 10/09/2024 06:3 1 am [facility] Gestation REYNOSO 10/09/19 25 06:31 am [facility] For detailed report, see PDF See PDF 10/09/2024 06:31 am [facility] 10/09/2024 06:3 1 am [facility] Social History Observation Value Start Date End Date
--- OUTSIDE RECORDS SUMMARY | 2025-04-11 09:40 | XMS_ITS | Clinical Summary ---
Author Organization [facility] Address [address] [place] [address] Care Team Providers Care Face Burler Name Role Phone Nadeem Pierre MD Primary Care Provider Allergies No known active allergies Medications meclizine (Antivert) 12.5 mg tablet Take 12.5 mg by mouth if needed in the morning, at noon, and at bedtime. 10/14/2024 Active omeprazole (PriLOSEC) [address] capsule Take 20 mg by mouth before breakfast. 12/15/2024 Active [id number] ( Multi-DHA,with vit K,) 27 mg iron-800 mcg-260 mg capsule Take by mouth. Active Active Problems Problem Noted Date Diagnosed Date Palpitations 01/30/2025 Dizziness 01/30/2025 SUNG (dyspnea on exertion) 01/30/2025 29 weeks gestation of 01/30/2025 Neck pain 01/28/2025 Acute sinusitis 09/24/2024 Comments Yes Encounters Date Type Department Care Team Description 01/28/2025 3:20 PM EDT Office Visit [facility] [address] [place] [address] Pete Hernández MD Dizziness (Primary [...] Care Team (Late st Contact Info) Description 06/16/2025 1:00 PM EDT Office Visit [facility] [address] [place] [address] Pete Hernández MD [address] [place] [address] Health Maintenance Due Date Last Done Comments Depression Screening 2006 Varicella Vaccines (1 of 2 - 13+ 2-dose series) 2007 HPV Vaccines (2 - 3-dose series) 07/02/2011 06/04/2011 Adult Tetanus 2016 COVID-19 Vaccine ( season) 2024 HPV/Cotest 2024 Influenza Vaccine (#1) 2025 Cervical Cancer Screening 11/17/2027 Pap Smear [...] from Last 3 Months Insurance [employer] [facility] Care Teams Face Burler Relationship Specialty Start Date End Date Nadeem Pierre MD [address] [facility] [place] [address] PCP - General Family Medicine 01/31/25
[2025-04-11 18:02] VITALS: BP 130/82; PULSE 81; TEMP 36.7; O2SAT 97
--- NOTE | 2025-04-11 18:02 | PC.NURSE ---
Sidra and 4 day old Oj arrive for follow up appointment. Sidra, is anxious, states is still nursing, breasts are rock hard , baby nursed all day yesterday, ended up giving him formula because thought I didn't have milk Educated on normal expectations for NB, mom and milk coming in. Given feeding log with expected feeds, wets, stools and emotions for first week of . Sidra relieved saying Then I an right on track . Supported and validated that can be difficult when do not understand the process. States tried with last 2 children and always went to formula at this point because I was scared . 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 VSS and assessment WNL for Sidra. Denies concerns for self or healing process. Baby Oj doing well, weight stable, feeds every 2-2.5 hours and mom able to identify multiple swallows at the breast. Nipples tender slightly abraided due to shallow latch with engorgement. Shown to use reverse pressure softening and latch baby deeper to breast. Verified that latch much better Shown breast and nipple care using massage, tea bags, soothies and shells with lanolin. Verbalized understanding. VSS and assessment WNL for Oj. Latches well at the breast and audible swallows noted. Nursed 15/10 before sleeping. Infant had 1 wet and smear of stool at appointment today. Will return for further support. Leaves for home feeling much better . Aware to call fo rneeds.
== END 2025-04-11 18:07 | disposition home or self-care (01) ==
LOC: FBCO 09:37
PROVIDERS: PCP Family Medicine; Visit Provider Obstetrics & Gynecology
DX: Z39.1 Encounter for care and examination of lactating mother (principal)

== ENCOUNTER 2025-04-14 08:44 | Outpatient (OUT) | payer BC, OTHER, SELFPAY ==
--- OUTSIDE RECORDS SUMMARY | 2025-04-14 09:07 | XMS_ITS | CCD ---
Author Organization [facility] Care Team Providers Care Lard Mixer Name Role Phone JAVAN, DR PLATT Attending [...] EC tablet Indications: Heartburn during , antepartum ([facility]) Take 1 tablet (20 mg) by mouth [...] Test Name Value Interpretation Reference Range Facility ALL CBC WITH AUTO DIFFon BASOPHILS ABSOLUTE AUTO 0 [facility] Basophils/100 WBC (Bld) 0.2 % 0.2 - 2.0 % [facility] Eosinophils/100 WBC (Bld) 0.5 % Low 0.9 - 7.0 % [facility] Erythrocyte distribution width (RBC) [Ratio] 12.2 % 11.0 - 15.0 % [facility] Hematocrit (Bld) [Volume fraction] 33.8 % Low 36.0 - 48.0 % [facility] Hem[facility] (Bld) [Mass/Vol] 11.8 g/dL Low 12.0 - 16.0 g/dL [facility] IMMATURE GRANULOCYTES ABS AUTO 0.06 High [facility] Immature granulocytes/100 WBC (Bld) 0.5 % 0.0 - 0.5 % [facility] Interpretation and review of laboratory results Abnormal [facility] LYMPHOCYTES ABSOLUTE AUTO 1.5 [facility] Lymphocytes/100 WBC (Bld) 12.9 % Low 20.5 - 60.0 % [facility] MCH (RBC) [Entitic mass] 34.3 pg High 26.7 - 34.0 pg [facility] MCHC (RBC) [Mass/Vol] 34.9 g/dL 29.9 - 35.2 g/dL [facility] MCV (RBC) [Entitic vol] 98.3 fL 81.0 - 99.0 fL [facility] MONOCYTES ABSOLUTE AUTO 0.8 [facility] Monocytes/100 WBC (Bld) 7.1 % 1.7 - 12.0 % [facility] NEUTROPHILS ABSOLUTE AUTO 9.2 High [facility] Neutrophils/100 WBC (Bld) 78.8 % High 43.0 - 75.0 % [facility] Platelet mean volume (Bld) [Entitic vol] 11.3 fL 9.5 - 13.5 fL [facility] TBH EO # 0.1 [facility] TB PLT 142 [facility] TB RBC 3.44 Low [facility] TB WBC 11.6 High [facility] HMHP CBC WITH PLATELET NO DI FFERENTIALon 04-07-2025 Erythrocyte distribution width (RBC) [Ratio] 12 % 11.0 - 15.0 % [facility] Hematocrit (Bld) [Volume fraction] 37.1 % 36.0 - 48.0 % [facility] Hemoglobin (Bld) [Mass/Vol] 13.2 g/dL 12.0 - 16.0 g/dL [facility] Interpretation and review of laboratory results Abnormal [facility]ca re MCH (RBC) [Entitic mass] 34.1 pg High 26.7 - 34.0 pg [facility] MCHC (RBC) [Mass/Vol] 35.6 g/dL High 29.9 - 35.2 g/dL [facility] MCV (RBC) [Entitic vol] 95.9 fL 81.0 - 99.0 fL [facility] Platelet mean volume (Bld) [Entitic vol] 11.6 fL 9.5 - 13.5 fL [facility] TBH PLT 170 [facility] TB RBC 3.87 Low [facility] TBH WBC 8.1 [facility] Urinalysis macro (dipstick) panel (U)on 04-06-2025 Bilirubin, UA Moderate Negative - 4(70) +++ mg/dL [facility] Blood, UA Negative Negative - 50 Som/mcL [facility] Clarity, UA Clear [facility] Color, UA Yellow [facility] Glucose, UA Negative Negative - 1999(110) ++++ mg/dL [facility] Interpretation and review of laboratory results Abnormal [facility] Ketones, UA Negative Negative - 160(16) ++++ mg/dL [facility] Leukocytes, UA Moderate Negative - 500+++ Eric/mcL [facility] Healthcare Nitrite, UA Negative Negative - Positive [facility] pH, UA 8.5 5 - 9 [facility] Health[facility] e Protein, UA Trace Negative - 1999(20) ++++ mg/dL [facility] Spec Grav, UA 1.01 1 - 1.03 [facility] Urobilinogen, UA 0.2 0.2 - 12 mg/dL [facility] Urinalysis macro (dipstick) panel (U)on 03-23-2025 Bilirubin, UA Negative Negative - 4(70) +++ mg/dL [facility] Blood, UA Negative Negative - 50 Som/mcL [facility] Clarity, UA Clear [facility] Color, UA Yellow [facility] Glucose, UA Negative Negative - 1999(110) ++++ mg/dL [facility] Interpretation and review of laboratory results Abnormal [facility] Healthca re Ketones, UA Negative Negative - 160(16) ++++ mg/dL [facility] Leukocytes, UA Positive Negative - 500+++ Eric/mcL [facility] Nitrite, UA Negative Negative - Positive [facility] pH, UA 7 5 - 9 [facility] Protein, UA Negative Negative - 1999(20) ++++ mg/dL [facility] Spec Grav, UA 1.015 1 - 1.03 [facility] Urobilinogen, UA 1.0 0.2 - 12 mg/dL [facility] Urinalysis macro (dipstick) panel (U)on 03-16-2025 Bilirubin, UA Negative Negative - 4(70) +++ mg/dL [facility] Blood, UA Negative Negative - 50 Som/mcL [facility] Clarity, UA Clear [facility] Color, UA Yellow [facility] Glucose, UA Negative Negative - 1999(110) ++++ mg/dL [facility] Interpretation and review of laboratory results Abnormal [facility] Ketones, UA Negative Negative - 160(16) ++++ mg/dL [facility] Leukocytes, UA Positive Negative - 500+++ Eric/mcL [facility] Comment on above: small Nitrite, UA Negative Negative - Positive [facility] pH, UA 6 5 - 9 [facility] Protein, UA Negative Negative - 1999(20) ++++ mg/dL [facility] Spec Grav, UA 1.025 1 - 1.03 [facility] Urobilinogen, UA 1.0 0.2 - 12 mg/dL [facility] Urinalysis macro (dipstick) panel (U)on 03-09-2025 Bilirubin, UA Negative Negative - 4(70) +++ mg/dL [facility] Blood, UA Positive Negative - 50 Som/mcL [facility] Comment on above: Trace-intact Clarity, UA Cloudy [facility] Color, UA Yellow [facility] Glucose, UA Negative Negative - 1999(110) ++++ mg/dL [facility] Interpretation and review of laboratory results Abnormal [facility] Ketones, UA Negative Negative - 160(16) ++++ mg/dL [facility] Leukocytes, UA Positive Negative - 500+++ Eric/mcL [facility] Comment on above: Small Nitrite, UA Negative Negative - Positive [facility] pH, UA 7 5 - 9 [facility] Protein, UA Negative Negative - 1999(20) ++++ mg/dL [facility] Spec Grav, UA 1.025 1 - 1.03 [facility] Urobilinogen, UA 1.0 0.2 - 12 mg/dL [facility] Urinalysis macro (dipstick) panel (U)Ordered By: Kaya Oh on 02-23-2025 Bilirubin, UA Negative Negative - 4(70) +++ mg/dL [facility] Blood, UA Positive Negative - 50 Som/mcL [facility] Clarity, UA Clear [facility] Color, UA Yellow [facility] Glucose, UA Negative Negative - 1999(110) ++++ mg/dL [facility] Interpretation and review of laboratory results Abnormal [facility] Ketones, UA Negative Negative - 160(16) ++++ mg/dL [facility] Leukocytes, UA Negative Negative - 500+++ Eric/mcL [facility] Nitrite, UA Negative Negative - Positive [facility] pH, UA 6.5 5 - 9 [facility] Protein, UA Many Negative - 1999(20) ++++ mg/dL [facility] Spec Grav, UA 1.025 1 - 1.03 [facility] Urobilinogen, UA 2.0 0.2 - 12 mg/dL [facility] US OB LIMITED 1+ FETUSESon [...] II, MD, PHD at 16-Feb-2025 11:19:13 PM [facility] Normal Not Available Comment on above: Order Comment: US OB AMNIOTIC FLUID VOLUME Estimated Date of Delivery: 04/14/25 Gestational Age as of 02/09/2025: 30w6d Urinalysis macro (dipstick) panel (U)on 02-09-2025 Bilirubin, UA Negative Negative - 4(70) +++ mg/dL [facility] Blood, UA Negative Negative - 50 Som/mcL [facility] Clarity, UA Cloudy [facility] Healthca re Color, UA Marichuy [facility] e Glucose, UA Negative Negative - 1999(110) ++++ mg/dL [facility] Interpretation and review of laboratory results Abnormal [facility] re Ketones, UA Negative Negative - 160(16) ++++ mg/dL [facility] Leukocytes, UA Positive Negative - 500+++ Eric/mcL [facility] Nitrite, UA Negative Negative - Positive [facility] pH, UA 7.5 5 - 9 [facility] Protein, UA Positive Negative - 1999(20) ++++ mg/dL [facility] Spec Grav, UA 1.025 1 - 1.03 [facility] Urobilinogen, UA 2.0 0.2 - 12 mg/dL [facility] [address] [facility] US OB FOLLOW UP [...] II, MD, PHD at 04-Feb-2025 10:12:11 AM [facility] Normal Not Available Comment on above: Order Comment: US OB SCAN FOR GROWTH Estimated Date of Delivery: 04/14/25 Gestational Age as of 12/28/2024: 24w5d Office Visiton 01-28-2025 Follow-up visit [id number] Sidra Ortega 1995 F Date Provider Department Center 01/28/2025 [id number] REDD Family History Problem Relation Age of Onset Arrhythmia Mother Family Status - Relation Status Age at Mother Alive Father Alive Brother Alive Level of Service:91902 UT OFFICE/OUTPATIENT NEW MODERATE MDM 45 MINUTES Reason for Visit and Comments: Palpitations [463779] Dizziness [838376] Excessive Sweating [[id number]] Normal [facility] Urinalysis macro (dipstick) panel (U)on 01-19-2025 Bilirubin, UA Negative Negative - 4(70) +++ mg/dL [facility] Blood, UA Negative Negative - 50 Som/mcL [facility] Clarity, UA Clear [facility] Color, UA Yellow [facility] Glucose, UA Negative Negative - 1999(110) ++++ mg/dL [facility] Interpretation and review of laboratory results Abnormal [facility] Ketones, UA Negative Negative - 160(16) ++++ mg/dL [facility] Leukocytes, UA Positive Negative - 500+++ Eric/mcL [facility] Nitrite, UA Negative Negative - Positive [facility] pH, UA 6 5 - 9 [facility] Protein, UA Trace Negative - 1999(20) ++++ mg/dL [facility] Spec Grav, UA 1.02 1 - 1.03 [facility] Urobilinogen, UA 1.0 0.2 - 12 mg/dL [facility] GLUCOSE 1 HOURon 01-18-2025 Glucose [Mass/Vol] 80 mg/dL NINF - 13 0 mg/dL [facility] e Urinalysis macro (dipstick) panel (U)on 12-28-2024 Bilirubin, UA Negative Negative - 4(70) +++ mg/dL [facility] Blood, UA Negative Negative - 50 Som/mcL [facility] Clarity, UA Clear [facility] Color, UA Yellow [facility] Glucose, UA Negative Negative - 1999(110) ++++ mg/dL [facility] Interpretation and review of laboratory results Abnormal [facility] Ketones, UA Negative Negative - 160(16) ++++ mg/dL [facility] Leukocytes, UA Positive Negative - 500+++ Eric/mcL [facility] Comment on above: small Nitrite, UA Negative Negative - Positive [facility] pH, UA 1 5 - 9 [facility] Protein, UA Positive Negative - 1999(20) ++++ mg/dL [facility] Comment on above: 30mg Spec Grav, UA 1.025 1 - 1.03 [facility] Urobilinogen, UA 1.0 0.2 - 12 mg/dL [facility] US OB 14+ WEEKS ANATOMY SCAN [...] II, MD, PHD at 01-Dec-2024 08:36:07 AM [facility] Normal Not Available Comment on above: Order Comment: US OB ANATOMY SINGLE W US OB CERVICAL LENGTH Estimated Date of Delivery: 04/14/25 Gestational Age as of 11/03/2024: 16w6d IGP,APTIMA HPV,AGE GDLNon AGE GDLN ACOG TESTING Note . [facility] Comment on above: TESTS RESULT FLAG UN ITS REF RANGE LAB Clinician Provided Cytology Information Source.............Cervix Other.............. No. of containers..01 ThinPrep Vial Age Algo ACOG Sunita... 30-65 01 FLAG LEGEND: L-Low Normal,H-High Normal,LL-Alert Low,HH-Alert High <-Panic Low,>-Panic High,A-Abnormal,AA-Critical Abnormal Performed at: 01 =G [address] [place] [address] Senait Shook MD, HPV APTIMA Negative Negative [facility] e Comment on above: This nucleic acid am plification test detects fourteen high- risk HPV types (16,18,31,33,35,39,45,51,52,56,58,59,66,68) without differentiation. Performed at: =[address] [id number] [place]: Senait Shook MD, Phone: [phone] Performed at: [address] [id number] [place]: Senait Shook MD, Phone: [phone] IGP, APTIMA HPV, RFX 16/18,45 Note . [facility] Comment on above: TESTS RESULT FLAG UN ITS REF RANGE LAB DIAGNOSIS: 02 NEGATIVE FOR INTRAEPITHELIAL LESION OR MALIGNANCY. THIS SPECIMEN WAS RESCREENED PART OF OUR HOSPICE CLINICAL MANAGER PROGRAM. Specimen adequacy: 02 Satisfactory for evaluation. No endocervical component is identified. An endocervical component is not commonly seen in the patient. Performed by: 02 Graciela Sorenson Water Pipe Installer QC reviewed by: 02 Sly Leung Water Pipe Installer ([facility]) . 02 Note: Note 02 The [...] Low,>-Panic High,A-Abnormal,AA-Critical Abnormal Performed at: 02 [facility] [address] [place] [address] Senait Shook MD, SPATULA-ALONE CERVIX [facility] No Panel Informationon 11-16 STAPHYLOCOCCUS EPIDERMIDIS, HAEMOLYTICUS, LUGDUNENSIS, SAPROPHYTICUS (URINA 0 [facility] STAPHYLOCOCCUS EPIDERMIDIS, HAEMOLYTICUS, LUGDUNENSIS, SAPROPHYTICUS (URINA Not detected [facility] URINARY TRACT INFECTION (HTR X)on 11-16-2024 ACINETOBACTER BAUMANII 0 [facility] ACINETOBACTER BAUMANII Not detected [facility] JAKE ALBICANS, PARAPSILOSIS, TROPICALIS 0 [facility] JAKE ALBICANS, PARAPSILOSIS, TROPICALIS Not detected [facility] JAKE GLABRATA 0 [facility] JAKE GLABRATA Not detected [facility] JAKE KRUSEI [facility] JAKE KRUSEI Not detected [facility] CITROBACTER FREUNDII 0 [facility] CITROBACTER FREUNDII Not detected [facility] ENTEROBACTER AEROGENES, CLOACAE 0 [facility] re ENTEROBACTER AEROGENES, CLOACAE Not detected [facility] re ENTEROCOCCUS FAECALIS, FAECIUM 0 [facility] ENTEROCOCCUS FAECALIS, FAECIUM Not detected [facility] ESCHERICHIA COLI 0 [facility] Hea lthcare ESCHERICHIA COLI Not detected [facility] KLEBSIELLA PNEUMONIAE, OXYTOCA 0 [facility] Healthc are KLEBSIELLA PNEUMONIAE, OXYTOCA Not detected [facility] MORGANELLA MORGANII 0 [facility] MORGANELLA [...] STREPTOCOCCUS AGALACTIAE (GROUP B STREP) Not detected [facility] STREPTOCOCCUS PYOGENES (GROUP A STREP) 0 [facility] STREPTOCOCCUS PYOGENES (GROUP A STREP) Not detected [facility] Healthcar e CARDIOCHECK - LIPID AND GLUC OSEon 11-09-2024 Cholesterol [Mass/Vol] 209 mg/dL NINF - 200 [facility] Cholesterol in HDL [Mass/Vol] 64 mg/dL M: 35-65 F: 35-80 [facility] Cholesterol in LDL [Mass/Vol] 108 mg/dL NINF - 100 [facility] Glucose [Mass/Vol] 98 mg/dL NINF - 100 [facility] H ealthcare Interpretation and review of laboratory results Abnormal [facility] Healthca re Triglyceride [Mass/Vol] 185 mg/dL NINF - 150 [facility] Urinalysis macro (dipstick) panel (U)on 11-03-2024 Bilirubin, UA Few Negative - 4(70) +++ mg/dL [facility] Blood, UA Positive Negative - 50 Som/mcL [facility] Color, UA Marichuy [facility] Glucose, UA Negative Negative - 1999(110) ++++ mg/dL [facility] Interpretation and review of laboratory results Abnormal [facility] Healthca re Ketones, UA Negative Negative - 160(16) ++++ mg/dL [facility] Leukocytes, UA Negative Negative - 500+++ Eric/mcL [facility] Nitrite, UA Negative Negative - Positive [facility] pH, UA 5.5 5 - 9 [facility] e Protein, UA Positive Negative - 1999(20) ++++ mg/dL [facility] Spec Grav, UA 1.03 1 - 1.03 [facility] Urobilinogen, UA 1.0 0.2 - 12 mg/dL [facility] Urinalysis macro (dipstick) panel (U)on 10-06-2024 Bilirubin, UA Negative Negative - 4(70) +++ mg/dL [facility] Blood, UA Negative Negative - 50 Som/mcL [facility] Clarity, UA Clear [facility] Healthca re Color, UA Yellow [facility] e Glucose, UA Negative Negative - 1999(110) ++++ mg/dL [facility] Interpretation and review of laboratory results Normal [facility] re Ketones, UA Negative Negative - 160(16) ++++ mg/dL [facility] Leukocytes, UA Negative Negative - 500+++ Eric/mcL [facility] Nitrite, UA Negative Negative - Positive [facility] pH, UA 5.5 5 - 9 [facility] Health[facility] e Protein, UA Negative Negative - 1999(20) ++++ mg/dL [facility] Spec Grav, UA 1.03 1 - 1.03 [facility] Urobilinogen, UA 1.0 0.2 - 12 mg/dL [facility] BOX TESTon 10-01-2024 BOX TEST SENT OUT [facility] [address] [facility] [address] 10/01/2024 [facility] UN[facility] BOX [facility] [employer] HCG ( test) Ql (U)o n 09-10-2024 Interpretation and review of laboratory results Abnormal [facility] [employer] (P[facility] re Preg Test, Ur Positive Negative [facility] Urinalysis macro (dipstick) panel (U)on 09-10-2024 Bilirubin, UA Negative Negative - 4(70) +++ mg/dL [facility] Blood, UA Positive Negative - 50 Som/mcL [facility] Comment on above: small Clarity, UA Clear [facility] re Color, UA Yellow [facility] [employer] Glucose, UA Negative Negative - 1999(110) ++++ mg/dL [facility] Interpretation and review of laboratory results Abnormal [facility] re Ketones, UA Negative Negative - 160(16) ++++ mg/dL [facility] Leukocytes, UA Trace Negative - 500+++ Eric/mcL [facility] Nitrite, UA Negative Negative - Positive [facility] pH, UA 5.5 5 - 9 [facility] e Protein, UA Negative Negative - 1999(20) ++++ mg/dL [facility] Spec Grav, UA 1.025 1 - 1.03 [facility] Urobilinogen, UA 0.2 0.2 - 12 mg/dL [facility] Healthcar e Cytology Cervical or vaginal smear or scraping studyOrdered By: Jaimee Beckman on 08-11-2023 [facility] [employer] [facility] CBC AUTO DIFFon 10-21-2022 BASO # 0.0 103/ul Normal 0.0-0.1 [facility] Comment on above: Performed By: #### C BC #### [facility] [address] [address] [address] Diann Dickerson Basophils/100 WBC (Bld) 0.4 % Normal 0.2-2.0 [facility] Comment on above: Performed By: #### C BC #### [facility] [address] [address] [address] Diann Dickerson EO # 0.0 103/ul Normal 0.0-0.7 [facility] Comment on above: Performed By: #### C BC #### [facility] [address] [place] [address] Dr. Diann Dickerson Eosinophils/100 WBC (Bld) 0.8 % Critically low 0.9-7.0 [facility] Comment on above: Performed By: #### C BC #### [facility] [address] [place] [address] Dr. Diann Dickerson Erythrocyte distribution width (RBC) [Ratio] 11.0 % Normal 11.0-15.0 [facility] Comment on above: Performed By: #### C BC #### [facility] [address] [place] [address] Dr. Diann Dickerson Hematocrit (Bld) [Volume fraction] 38.0 % Normal 36.0-48.0 [facility] Comment on above: Performed By: #### C BC #### [facility] [address] [place] [address] Dr. Diann Dickerson Hemoglobin (Bld) [Mass/Vol] 13.6 g/dL Normal 12.0-16.0 [facility] Comment on above: Performed By: #### C BC #### [facility] [address] [place] [address] Dr. Diann Dickerson IG # 0.02 10e3/ul Normal 0.00-0.03 [facility] Comment on above: Performed By: #### C BC #### [facility] [address] [place] [address] Dr. Diann Dickerson IG % 0.4 % Normal 0.0-0.5 [facility] Comment on above: Performed By: #### C BC #### [facility] [address] [place] [address] Dr. Diann Dickerson LYMPH # 2.0 103/ul Normal 1.2-3.8 [facility] Comment on above: Performed By: #### C BC #### [facility] [address] [place] [address] Dr. Diann Dickerson Lymphocytes/100 WBC (Bld) 38.2 % Normal 20.5-60.0 [facility] Comment on above: Performed By: #### C BC #### [facility] [address] [place] [address] Dr. Diann Dickerson MANUAL DIFF REQ NO Normal [facility] Comment on above: Performed By: #### C BC #### [facility] [address] [place] [address] Dr. Diann Dickerson MCH (RBC) [Entitic mass] 31.6 pg Normal 26.7-34.0 [facility] Comment on above: Performed By: #### C BC #### [facility] [address] [place] [address] Dr. Diann Dickerson MCHC (RBC) [Mass/Vol] 35.8 g/dL Critically high 29.9-35.2 [facility] Comment on above: Performed By: #### C BC #### [facility] [address] [place] [address] Dr. Diann Dickerson MCV (RBC) [Entitic vol] 88.2 fL Normal 81.0-99.0 [facility] Comment on above: Performed By: #### C BC #### [facility] [address] [place] [address] Dr. Diann Dickerson MONO # 0.4 103/ul Normal 0.3-0.8 [facility] Comment on above: Performed By: #### C BC #### [facility] [address] [place] [address] Dr. Diann Dickerson Monocytes/100 WBC (Bld) 7.7 % Normal 1.7-12.0 [facility] Comment on above: Performed By: #### C BC #### [facility] [address] [place] [address] Dr. Diann Dickerson NEUT # 2.7 103/ul Normal 1.4-6.5 [facility] Comment on above: Performed By: #### C BC #### [facility] [address] [place] [address] Dr. Diann Dickerson Neutrophils/100 WBC (Bld) 52.5 % Normal 43.0-75.0 [facility] Comment on above: Performed By: #### C BC #### [facility] [address] [place] [address] Dr. Diann Dickerson Platelet mean volume (Bld) [Entitic vol] 10.3 fL Normal 9.5-13.5 [facility] Comment on above: Performed By: #### C BC #### [facility] [address] [place] [address] Dr. Diann Dickerson PLT 251 103/ul Normal 150-450 [facility] Comment on above: Performed By: #### C BC #### [facility] [address] [place] [address] Dr. Diann Dickerson RBC 4.31 106/ul Normal 4.20-5.40 [facility] Comment on above: Performed By: #### C BC #### [facility] [address] [place] [address] Dr. Diann Dickerson WBC 5.2 103/ul Normal 4.0-11.0 [facility] Comment on above: Performed By: #### C BC #### [facility] [address] [place] [address] Dr. Diann Dickerson ER URINE PROFILEon 3 Bilirubin Ql (U) Negative Normal NEGATIVE [facility] Comment on above: Performed By: #### P REGU, ERUR #### [facility] [address] [place] [address] Dr. Diann Dickerson Clarity (U) CLEAR Normal CLEAR [facility] Comment on above: Performed By: #### P REGU, ERUR #### [facility] [address] [place] [address] Dr. Diann Dickerson Color (U) YELLOW Normal YELLOW [facility] Comment on above: Performed By: #### P REGU, ERUR #### [facility] [address] [place] [address] Dr. Diann MCCALLUM A micrscopic examination will be performed if indicated. Normal [facility] Comment on above: Performed By: #### P REGU, ERUR #### [facility] [address] [place] [address] Dr. Diann Dickerson Glucose Ql (U) Negative Normal NEGATIVE [facility] Comment on above: Performed By: #### P REGU, ERUR #### [facility] [address] [address] [address] Diann Dickerson Hemoglobin Ql (U) Negative Normal NEGATIVE [facility] Comment on above: Performed By: #### P REGU, ERUR #### [facility] [address] [address] [address] Diann Dickerson Ketones Ql (U) Negative Normal NEGATIVE [facility] Comment on above: Performed By: #### P REGU, ERUR #### [facility] [address] [address] [address] Diann Dickerson LEUKOCYTES Negative Normal NEGATIVE [facility] Comment on above: Performed By: #### P REGU, ERUR #### [facility] [address] [place] [address] Dr. Diann Dickerson Nitrite Ql (U) Negative Normal NEGATIVE [facility] Comment on above: Performed By: #### P REGU, ERUR #### [facility] [address] [place] [address] Dr. Diann Dickerson pH (U) 6.0 [pH] Normal 5-9 [facility] Comment on above: Performed By: #### P REGU, ERUR #### [facility] [address] [place] [address] Dr. Diann Dickerson SPEC GRAVITY 1.015 Normal 1.005-<=1.025 [facility] Comment on above: Performed By: #### P REGU, ERUR #### [facility] [address] [place] [address] Dr. Diann Dickerson UA PROTEIN Negative Normal NEGATIVE/ TRACE [facility] Comment on above: Performed By: #### P REGU, ERUR #### [facility] [address] [place] [address] Dr. Diann Dickerson UR MICRO IND NOT INDICATED Normal [facility] Comment on above: Performed By: #### P REGU, ERUR #### [facility] [address] [place] [address] Dr. Diann Dickerson Urobilinogen Qn (U) 1.0 {Guy'U}/dL Normal 0.2 - 1. 0 [facility] Comment on above: Performed By: #### P JONATHAN, ERUR #### [facility] [address] [place] [address] Dr. Diann Dickerson GROUP A STREP CULTUREon 09-24 S. pyogenes Ag Ql (Unsp spec) Culture Observations: NEGATIVE FOR GROUP A STREPTOCOCCUS. Normal [facility] Comment on above: Performed By: #### G RASTCX, SSCRN #### [facility] [address] [place] [address] Dr. Diann Dickerson URon 10-21-2022 , QUAL Negative Normal NEGATIVE [facility] Comment on above: Performed By: #### P JONATHAN, ERUR #### [facility] [address] [place] [address] Dr. Diann Dickerson PROF CHEM 8 (BAS METB)on Anion gap [Moles/Vol] 12.1 mmol/L Normal [facility] Comment on above: Performed By: #### C BC #### [facility] [address] [address] [address] Diann Dickerson Calcium [Mass/Vol] 9.3 mg/dL Normal 8.5-10.1 [facility] Comment on above: Performed By: #### C BC #### [facility] [address] [place] [address] Dr. Diann Dickerson Chloride [Moles/Vol] 101 mmol/L Normal 98-107 [facility] Comment on above: Performed By: #### C BC #### [facility] [address] [place] [address] Dr. Diann Dickerson CO2 [Moles/Vol] 28.3 mmol/L Normal 21.0-32.0 [facility] Comment on above: Performed By: #### C BC #### [facility] [address] [place] [address] Dr. Diann Dickerson Creatinine [Mass/Vol] 0.61 mg/dL Normal 0.55-1.02 [facility] Comment on above: Performed By: #### C BC #### [facility] [address] [address] [address] Diann Dickerson EGFR-AF SAMOAN >60 Normal >=60 [facility] Comment on above: Performed By: #### C BC #### [facility] [address] [address] [address] Diann Dickerson EGFR-NON AF SAMOAN >60 Normal >=60 [facility] Comment on above: Performed By: #### C BC #### [facility] [address] [address] [address] Diann Dickerson Glucose [Mass/Vol] 122 mg/dL Critically high 74-106 [facility] Comment on above: Performed By: #### C BC #### [facility] [address] [address] [address] Diann Dickerson Potassium [Moles/Vol] 3.4 mmol/L Critically low 3.5-5.1 [facility] Comment on above: Performed By: #### C BC #### [facility] [address] [address] [address] Diann Dickerson Sodium [Moles/Vol] 138 mmol/L Normal 136-145 [facility] Comment on above: Performed By: #### C BC #### [facility] [address] [address] [address] Diann Dickerson Urea nitrogen [Mass/Vol] 5.0 mg/dL Critically low 7.0-18.0 [facility] Comment on above: Performed By: #### C BC #### [facility] [address] [address] [address] Diann Dickerson Urea nitrogen/Creatinine [Mass ratio] 8.2 mg/mg Normal [facility] Comment on above: Performed By: #### C BC #### [facility] [address] [place] [address] Dr. Diann Dickerson STREPT SCREENon 10-21-2022 STREP SCREEN A Negative Normal NEGATIVE [facility] Comment on above: Performed By: #### G RASTCX, SSCRN #### [facility] [address] [place] [address] Dr. Diann Dickerson Covid-19 PCR (CVDTB)on 09-23 SARS-CoV-2 (COVID-19) RNA PREMA+probe Ql (Unsp spec) Not detected Normal NOT DETECTED [facility] Comment on above: Result Comment: This test is not yet approved or cleared by the [place] FDA. When there are no FDA-approved or cleared tests available, and other criteria are met, FDA can make tests available under an emergency access mechanism called an Emergency Use Authorization (EUA). The EUA for this test is supported by the Technical Support Engineer of Health and Human Service's (HHS's) declaration [...] By: #### C VDTBH #### [facility] [address] [place] [address] Dr. Diann Dickesron INFLUENZA A AND B AGon 10-17 INFLUSAN [facility] SEE BELOW Normal [facility] Comment on above: Result Comment: Nega tive for Flu A protein angiten. Infection due to Flu A cannot be ruled out. Flu A angiten in the sample may be below the detection limit of the test. Performed By: #### U ACSIND #### [facility] [address] [place] [address] Dr. Diann Dickerson INFLUBNEG SEE BELOW Normal [facility] Comment on above: Result Comment: Nega tive for Flu B protein antigen. Infection due to Flu B cannot be ruled out. Flu B antigen in the sample may be below the detection limit of the test. Performed By: #### U ACSIND #### [facility] [address] [place] [address] Dr. Diann Dickerson INFLUENZA A AG Negative Normal NEGATIVE SEE COMMENT [facility] Comment on above: Performed By: #### U ACSIND #### [facility] [address] [place] [address] Dr. Diann Dickerson INFLUENZA B AG Negative Normal NEGATIVE SEE COMMENT [facility] Comment on above: Performed By: #### U ACSIND #### [facility] [address] [place] [address] Dr. Diann Dickerson CBC AUTO DIFFon 04-02-2022 BASO # 0.0 103/ul Normal 0.0-0.1 [facility] Comment on above: Performed By: #### C VDTBH #### [facility] [address] [place] [address] Dr. Diann Dickerson Basophils/100 WBC (Bld) 0.4 % Normal 0.2-2.0 [facility] Comment on above: Performed By: #### C VDTBH #### [facility] [address] [place] [address] Dr. Diann Dickerson EO # 0.1 103/ul Normal 0.0-0.7 [facility] Comment on above: Performed By: #### C VDTBH #### [facility] [address] [place] [address] Dr. Diann Dickerson Eosinophils/100 WBC (Bld) 0.6 % Critically low 0.9-7.0 [facility] Comment on above: Performed By: #### C VDTBH #### [facility] [address] [place] [address] Dr. Diann Dickerson Erythrocyte distribution width (RBC) [Ratio] 12.3 % Normal 11.0-15.0 [facility] Comment on above: Performed By: #### C VDTBH #### [facility] [address] [place] [address] Dr. Diann Dickerson Hematocrit (Bld) [Volume fraction] 35.5 % Critically low 36.0-48.0 [facility] Comment on above: Performed By: #### C VDTBH #### [facility] [address] [place] [address] Dr. Diann Dickerson Hemoglobin (Bld) [Mass/Vol] 12.3 g/dL Normal 12.0-16.0 [facility] Comment on above: Performed By: #### C VDTBH #### [facility] [address] [place] [address] Dr. Diann Dickerson IG # 0.07 10e3/ul Critically high 0.00-0.03 [facility] Comment on above: Performed By: #### C VDTBH #### [facility] [address] [place] [address] Dr. Diann Dickerson IG % 0.7 % Critically high 0.0-0.5 [facility] Comment on above: Performed By: #### C VDTBH #### [facility] [address] [place] [address] Dr. Diann Dickerson LYMPH # 1.3 103/ul Normal 1.2-3.8 [facility] Comment on above: Performed By: #### C VDTBH #### [facility] [address] [place] [address] Dr. Diann Dickerson Lymphocytes/100 WBC (Bld) 13.9 % Critically low 20.5-60.0 [facility] Comment on above: Performed By: #### C VDTBH #### [facility] [address] [place] [address] Dr. Diann Dickerson MANUAL DIFF REQ NO Normal [facility] Comment on above: Performed By: #### C VDTBH #### [facility] [address] [place] [address] Dr. Diann Dickerson MCH (RBC) [Entitic mass] 34.1 pg Critically high 26.7-34.0 [facility] Comment on above: Performed By: #### C VDTBH #### [facility] [address] [place] [address] Dr. Diann Dickerson MCHC (RBC) [Mass/Vol] 34.6 g/dL Normal 29.9-35.2 [facility] Comment on above: Performed By: #### C VDTBH #### [facility] [address] [place] [address] Dr. Dainn Dickerson MCV (RBC) [Entitic vol] 98.3 fL Normal 81.0-99.0 [facility] Comment on above: Performed By: #### C VDTBH #### [facility] [address] [place] [address] Dr. Dainn Dickerson MONO # 1.0 103/ul Critically high 0.3-0.8 [facility] Comment on above: Performed By: #### C VDTBH #### [facility] [address] [place] [address] Dr. Diann Dickerson Monocytes/100 WBC (Bld) 10.5 % Normal 1.7-12.0 [facility] Comment on above: Performed By: #### C VDTBH #### [facility] [address] [place] [address] Dr. Diann Dickerson NEUT # 6.9 103/ul Critically high 1.4-6.5 [facility] Comment on above: Performed By: #### C VDTBH #### [facility] [address] [place] [address] Dr. Diann Dickerson Neutrophils/100 WBC (Bld) 73.9 % Normal 43.0-75.0 [facility] Comment on above: Performed By: #### C VDTBH #### [facility] [address] [place] [address] Dr. Diann Dickerson Platelet mean volume (Bld) [Entitic vol] 10.8 fL Normal 9.5-13.5 [facility] Comment on above: Performed By: #### C VDTBH #### [facility] [address] [place] [address] Dr. Diann Dickerson PLT 177 103/ul Normal 150-450 [facility] Comment on above: Performed By: #### C VDTBH #### [facility] [address] [place] [address] Dr. Diann Dickerson RBC 3.61 106/ul Critically low 4.20-5.40 [facility] Comment on above: Performed By: #### C VDTBH #### [facility] [address] [place] [address] Dr. Diann Dickerson WBC 9.4 103/ul Normal 4.0-11.0 [facility] Comment on above: Performed By: #### C VDTBH #### [facility] [address] [place] [address] Dr. Diann Dickerson CBC AUTO DIFFon 04-01-2022 BASO # 0.0 103/ul Normal 0.0-0.1 [facility] Comment on above: Performed By: #### C BC #### [facility] [address] [place] [address] Dr. Diann Dickerson Basophils/100 WBC (Bld) 0.3 % Normal 0.2-2.0 [facility] Comment on above: Performed By: #### C BC #### [facility] [address] [place] [address] Dr. Diann Dickerson EO # 0.1 103/ul Normal 0.0-0.7 [facility] Comment on above: Performed By: #### C BC #### [facility] [address] [place] [address] Dr. Diann Dickerson Eosinophils/100 WBC (Bld) 0.6 % Critically low 0.9-7.0 [facility] Comment on above: Performed By: #### C BC #### [facility] [address] [place] [address] Dr. Diann Dickerson Erythrocyte distribution width (RBC) [Ratio] 12.4 % Normal 11.0-15.0 [facility] Comment on above: Performed By: #### C BC #### [facility] [address] [place] [address] Dr. Diann Dickerson Hematocrit (Bld) [Volume fraction] 38.0 % Normal 36.0-48.0 [facility] Comment on above: Performed By: #### C BC #### [facility] [address] [place] [address] Dr. Diann Dickerson Hemoglobin (Bld) [Mass/Vol] 13.1 g/dL Normal 12.0-16.0 [facility] Comment on above: Performed By: #### C BC #### [facility] [address] [place] [address] Dr. Diann Dickerson IG # 0.07 10e3/ul Critically high 0.00-0.03 [facility] Comment on above: Performed By: #### C BC #### [facility] [address] [place] [address] Dr. Diann Dickerson IG % 0.7 % Critically high 0.0-0.5 [facility] Comment on above: Performed By: #### C BC #### [facility] [address] [place] [address] Dr. Diann Dickerson LYMPH # 1.5 103/ul Normal 1.2-3.8 [facility] Comment on above: Performed By: #### C BC #### [facility] [address] [place] [address] Dr. Diann Dickerson Lymphocytes/100 WBC (Bld) 15.6 % Critically low 20.5-60.0 [facility] Comment on above: Performed By: #### C BC #### [facility] [address] [place] [address] Dr. Diann Dickerson MANUAL DIFF REQ NO Normal [facility] Comment on above: Performed By: #### C BC #### [facility] [address] [place] [address] Dr. Diann Dickerson MCH (RBC) [Entitic mass] 33.8 pg Normal 26.7-34.0 [facility] Comment on above: Performed By: #### C BC #### [facility] [address] [place] [address] Dr. Diann Dickerson MCHC (RBC) [Mass/Vol] 34.5 g/dL Normal 29.9-35.2 [facility] Comment on above: Performed By: #### C BC #### [facility] [address] [place] [address] Dr. Diann Dickerson MCV (RBC) [Entitic vol] 97.9 fL Normal 81.0-99.0 [facility] Comment on above: Performed By: #### C BC #### [facility] [address] [address] [address] Diann Dickerson MONO # 0.8 103/ul Normal 0.3-0.8 [facility] Comment on above: Performed By: #### C BC #### [facility] [address] [place] [address] Dr. Diann Dickerson Monocytes/100 WBC (Bld) 8.2 % Normal 1.7-12.0 [facility] Comment on above: Performed By: #### C BC #### [facility] [address] [place] [address] Dr. Diann Dickerson NEUT # 7.1 103/ul Critically high 1.4-6.5 [facility] Comment on above: Performed By: #### C BC #### [facility] [address] [place] [address] Dr. Diann Dickerson Neutrophils/100 WBC (Bld) 74.6 % Normal 43.0-75.0 [facility] Comment on above: Performed By: #### C BC #### [facility] [address] [place] [address] Dr. Diann Dickerson Platelet mean volume (Bld) [Entitic vol] 10.7 fL Normal 9.5-13.5 [facility] Comment on above: Performed By: #### C BC #### [facility] [address] [place] [address] Dr. Diann Dickerson PLT 172 103/ul Normal 150-450 [facility] Comment on above: Performed By: #### C BC #### [facility] [address] [place] [address] Dr. Diann Dickerson RBC 3.88 106/ul Critically low 4.20-5.40 [facility] Comment on above: Performed By: #### C BC #### [facility] [address] [place] [address] Dr. Diann Dickerson WBC 9.5 103/ul Normal 4.0-11.0 [facility] Comment on above: Performed By: #### C BC #### [facility] [address] [place] [address] Dr. Diann Dickerson [facility] SARS-CoV-2 (COVID-19) RNA PREMA+probe Ql (Unsp spec) Not detected Normal NOT DETECTED [facility] Comment on above: Result Comment: [...] for this test is supported by the Technical Support Engineer of Health and Human Service's declaration that [...] By: #### C VDTBH #### [facility] [address] [place] [address] Dr. Diann Dickerson DRUG SCREEN RAPID (URINE)on 04-01-2022 AMP Negative Normal NEGATIVE [facility] Comment on above: Performed By: #### C BC #### [facility] [address] [place] [address] Dr. Diann Dickerson BAR Negative Normal NEGATIVE [facility] Comment on above: Performed By: #### C BC #### [facility] [address] [place] [address] Dr. Diann Dickerson BUP Negative Normal NEGATIVE [facility] Comment on above: Performed By: #### C BC #### [facility] [address] [place] [address] Dr. Diann Dickerson BZO Negative Normal NEGATIVE [facility] Comment on above: Performed By: #### C BC #### [facility] [address] [place] [address] Dr. Diann Dickerson KRYS Negative Normal NEGATIVE [facility] Comment on above: Performed By: #### C BC #### [facility] [address] [place] [address] Dr. Diann Dickerson CUT-OFFS SEE BELOW Normal [facility] Comment on above: Result Comment: AMP [...] By: #### C BC #### [facility] [address] [place] [address] Dr. Diann Dickerson DRUG CUT HEADER DRUG CLASS TEST SYSTEM CUT-OFF CONCENTRATIONS ARE FOLLOWS: Normal [facility] Comment on above: Performed By: #### C BC #### [facility] [address] [place] [address] Dr. Diann Dickerson mAMP Negative Normal NEGATIVE [facility] Comment on above: Performed By: #### C BC #### [facility] [address] [place] [address] Dr. Diann Dickerson MTD Negative Normal NEGATIVE [facility] Comment on above: Performed By: #### C BC #### [facility] [address] [place] [address] Dr. Diann Dickerson OPI Negative Normal NEGATIVE [facility] Comment on above: Performed By: #### C BC #### [facility] [address] [place], [place] [address] Dr. Diann Dickerson OXY Negative Normal NEGATIVE [facility] Comment on above: Performed By: #### C BC #### [facility] [address] [place] [address] Dr. Diann Dickerson PCP Negative Normal NEGATIVE [facility] Comment on above: Performed By: #### C BC #### [facility] [address] [place] [address] Dr. Diann Dickerson PPX Negative Normal NEGATIVE [facility] Comment on above: Performed By: #### C BC #### [facility] [address] [place] [address] Dr. Diann Dickerson TCA Negative Normal NEGATIVE [facility] Comment on above: Performed By: #### C BC #### [facility] [address] [place] [address] Dr. Diann Dickerson THC Negative Normal NEGATIVE [facility] Comment on above: Performed By: #### C BC #### [facility] [address] [place] [address] Dr. Diann Dickerson GROUP B STREP CULTUREon [...] >=16 R F Normal [facility] Comment on above: Performed By: #### C BC #### [facility] [address] [place] [address] Dr. Diann Dickerson US PREG GROWTHon 03-04-2022 [...] growth detailed above. Electronically authenticated by: JAYSHREE PHILALMA ROSAKELI Date: 2022-03-04 17:33 Normal [facility] AMYLASEon 01-18-2022 Amylase [Catalytic activity/Vol] 30 U/L Normal 25-115 [facility] Comment on above: Performed By: #### C VDTBH #### [facility] [address] [place] [address] Dr. Diann Dickerson BUNon 01-18-2022 Urea nitrogen [Mass/Vol] 7.0 mg/dL Normal 7.0-18.0 [facility] Comment on above: Performed By: #### C VDTBH #### [facility] [address] [place] [address] Dr. Diann Dickerson CBC AUTO DIFFon 01-18-2022 BASO # 0.0 103/ul Normal 0.0-0.1 [facility] Comment on above: Performed By: #### C VDTBH #### [facility] [address] [place] [address] Dr. Diann Dickerson Basophils/100 WBC (Bld) 0.3 % Normal 0.2-2.0 [facility] Comment on above: Performed By: #### C VDTBH #### [facility] [address] [place] [address] Dr. Diann Dickerson EO # 0.1 103/ul Normal 0.0-0.7 [facility] Comment on above: Performed By: #### C VDTBH #### [facility] [address] [place] [address] Dr. Diann Dickerson Eosinophils/100 WBC (Bld) 0.6 % Critically low 0.9-7.0 [facility] Comment on above: Performed By: #### C VDTBH #### [facility] [address] [address] [address] Diann Dickerson Erythrocyte distribution width (RBC) [Ratio] 12.6 % Normal 11.0-15.0 [facility] Comment on above: Performed By: #### C VDTBH #### [facility] [address] [place] [address] Dr. Diann Dickerson Hematocrit (Bld) [Volume fraction] 36.8 % Normal 36.0-48.0 [facility] Comment on above: Performed By: #### C VDTBH #### [facility] [address] [place] [address] Dr. Diann Dickerson Hemoglobin (Bld) [Mass/Vol] 12.6 g/dL Normal 12.0-16.0 [facility] Comment on above: Performed By: #### C VDTBH #### [facility] [address] [place] [address] Dr. Diann Dickerson IG # 0.06 10e3/ul Critically high 0.00-0.03 [facility] Comment on above: Performed By: #### C VDTBH #### [facility] [address] [place] [address] Dr. Diann Dickerson IG % 0.7 % Critically high 0.0-0.5 [facility] Comment on above: Performed By: #### C VDTBH #### [facility] [address] [place] [address] Dr. Diann Dickerson LYMPH # 0.7 103/ul Critically low 1.2-3.8 [facility] Comment on above: Performed By: #### C VDTBH #### [facility] [address] [place] [address] Dr. Diann Dickerson Lymphocytes/100 WBC (Bld) 7.6 % Critically low 20.5-60.0 [facility] Comment on above: Performed By: #### C VDTBH #### [facility] [address] [place] [address] Dr. Diann Dickerson MANUAL DIFF REQ NO Normal [facility] Comment on above: Performed By: #### C VDTBH #### [facility] [address] [address] [address] Diann Dickerson MCH (RBC) [Entitic mass] 33.3 pg Normal 26.7-34.0 [facility] Comment on above: Performed By: #### C VDTBH #### [facility] [address] [place] [address] Dr. Diann Dickerson MCHC (RBC) [Mass/Vol] 34.2 g/dL Normal 29.9-35.2 [facility] Comment on above: Performed By: #### C VDTBH #### [facility] [address] [place] [address] Dr. Diann Dickerson MCV (RBC) [Entitic vol] 97.4 fL Normal 81.0-99.0 [facility] Comment on above: Performed By: #### C VDTBH #### [facility] [address] [place] [address] Dr. Diann Dickerson MONO # 0.5 103/ul Normal 0.3-0.8 [facility] Comment on above: Performed By: #### C VDTBH #### [facility] [address] [place] [address] Dr. Diann Dickerson Monocytes/100 WBC (Bld) 5.3 % Normal 1.7-12.0 [facility] Comment on above: Performed By: #### C VDTBH #### [facility] [address] [place] [address] Dr. Diann Dickerson NEUT # 7.6 103/ul Critically high 1.4-6.5 [facility] Comment on above: Performed By: #### C VDTBH #### [facility] [address] [place] [address] Dr. Diann Dickerson Neutrophils/100 WBC (Bld) 85.5 % Critically high 43.0-75.0 [facility] Comment on above: Performed By: #### C VDTBH #### [facility] [address] [place] [address] Dr. Diann Dickerson Platelet mean volume (Bld) [Entitic vol] 10.2 fL Normal 9.5-13.5 [facility] Comment on above: Performed By: #### C VDTBH #### [facility] [address] [address] [address] Diann Dickerson PLT 198 103/ul Normal 150-450 [facility] Comment on above: Performed By: #### C VDTBH #### [facility] [address] [place] [address] Dr. Diann Dickerson RBC 3.78 106/ul Critically low 4.20-5.40 [facility] Comment on above: Performed By: #### C VDTBH #### [facility] [address] [address] [address] Diann Dickerson WBC 8.9 103/ul Normal 4.0-11.0 [facility] Comment on above: Performed By: #### C VDTBH #### [facility] [address] [place] [address] Dr. Diann Dickerson CREATININEon 01-18-2022 Creatinine [Mass/Vol] 0.53 mg/dL Critically low 0.55-1.02 [facility] Comment on above: Performed By: #### C VDTBH #### [facility] [address] [place] [address] Dr. Diann Dickerson EGFR-AF SAMOAN >60 Normal >=60 [facility] Comment on above: Performed By: #### C VDTBH #### [facility] [address] [place] [address] Dr. Diann Dickerson EGFR-NON AF SAMOAN >60 Normal >=60 [facility] Comment on above: Performed By: #### C VDTBH #### [facility] [address] [place] [address] Dr. Diann Dickerson ELECTROLYTESon 01-18-2022 Anion gap [Moles/Vol] 9.6 mmol/L Normal [facility] Comment on above: Performed By: #### C VDTBH #### [facility] [address] [place] [address] Dr. Diann Dickerson Chloride [Moles/Vol] 106 mmol/L Normal 98-107 [facility] Comment on above: Performed By: #### C VDTBH #### [facility] [address] [place] [address] Dr. Diann Dickerson CO2 [Moles/Vol] 23.5 mmol/L Normal 21.0-32.0 [facility] Comment on above: Performed By: #### C VDTBH #### [facility] [address] [place] [address] Dr. Diann Dickerson Potassium [Moles/Vol] 4.1 mmol/L Normal 3.5-5.1 [facility] Comment on above: Performed By: #### C VDTBH #### [facility] [address] [place] [address] Dr. Diann Dickerson Sodium [Moles/Vol] 135 mmol/L Critically low 136-145 [facility] Comment on above: Performed By: #### C VDTBH #### [facility] [address] [place] [address] Dr. Diann Dickerson SGOTon 01-18-2022 AST [Catalytic activity/Vol] 15 U/L Normal 15-37 [facility] Comment on above: Performed By: #### C VDTBH #### [facility] [address] [place] [address] Dr. Diann Dickerson SGPTon 01-18-2022 ALT [Catalytic activity/Vol] 19 U/L Normal 14-59 [facility] Comment on above: Performed By: #### C VDTBH #### [facility] [address] [place] [address] Dr. Diann Dickerson TSHon 01-18-2022 TSH 1.409 uIU/mL Normal 0.470-4.680 [facility] Comment on above: Performed By: #### C VDTBH #### [facility] [address] [place] [address] Dr. Diann Dickerson TSH RANGE SEE BELOW Normal [facility] Comment on above: Result Comment: <0.3 4 UIU/ml HYPERTHYROID 0.34-5.60 UIU/ml EUTHYROID >5.60 UIU/ml HYPOTHYROID Performed By: #### C VDTBH #### [facility] [address] [address] [address] Diann Dickerson UA (CLEAN/CATCH) FIBROUS WALLBOARD INSPECTOR/MICRO I F IND.on 01-18-2022 Bilirubin Ql (U) Negative Normal NEGATIVE [facility] Comment on above: Performed By: #### U ACSIND #### [facility] [address] [place] [address] Dr. Diann Dickerson Clarity (U) CLEAR Normal CLEAR [facility] Comment on above: Performed By: #### U ACSIND #### [facility] [address] [place] [address] Dr. Diann Dickerson Color (U) YELLOW Normal YELLOW [facility] Comment on above: Performed By: #### U ACSIND #### [facility] [address] [place] [address] Dr. Diann Dickerson Glucose Ql (U) Negative Normal NEGATIVE [facility] Comment on above: Performed By: #### U ACSIND #### [facility] [address] [place] [address] Dr. Diann Dickerson Hemoglobin Ql (U) Negative Normal NEGATIVE [facility] Comment on above: Performed By: #### U ACSIND #### [facility] [address] [place] [address] Dr. Diann Dickerson Ketones Ql (U) Negative Normal NEGATIVE [facility] Comment on above: Performed By: #### U ACSIND #### [facility] [address] [place] [address] Dr. Diann Dickerson LEUKOCYTES Negative Normal NEGATIVE [facility] Comment on above: Performed By: #### U ACSIND #### [facility] [address] [place] [address] Dr. Diann Dickerson Nitrite Ql (U) Negative Normal NEGATIVE [facility] Comment on above: Performed By: #### U ACSIND #### [facility] [address] [place] [address] Dr. Diann Dickerson pH (U) 8.5 [pH] Normal 5-9 [facility] Comment on above: Performed By: #### U ACSIND #### [facility] [address] [place] [address] Dr. Diann Dickerson SPEC GRAVITY 1.015 Normal 1.005-<=1.025 [facility] Comment on above: Performed By: #### U ACSIND #### [facility] [address] [place] [address] Dr. Diann Dickerson UA PROTEIN Negative Normal NEGATIVE/ TRACE [facility] Comment on above: Performed By: #### U ACSIND #### [facility] [address] [place] [address] Dr. Diann Dickerson UR MICRO IND NOT INDICATED Normal [facility] Comment on above: Performed By: #### U ACSIND #### [facility] [address] [place] [address] Dr. Diann Dickerson Urobilinogen Qn (U) 0.2 {Guy'U}/dL Normal 0.2 - 1. 0 [facility] Comment on above: Performed By: #### U ACSIND #### [facility] [address] [place] [address] Dr. Diann Dickerson US PREG BIOPHY W [...] by: MARBIN MCKEON Date: 2022-01-18 10:45 Normal [facility] US PREG CERVICAL LENGTHon US PREG CERVICAL LENGTH EXAMINATION: US PREG CERVICAL LENGTH HISTORY: Nausea and vomiting COMPARISON: 12/31/2021 FINDINGS: position: Cephalic Heart rate: 141 bpm Cervix: 4.7 cm, closed Clinical age: 20 weeks 5 days Clinical ANGELA: 04/07/2022 IMPRESSION: Closed cervix measuring 4.7 cm in length Electronically authenticated by: MARBIN MCKEON Date: 2022-01-18 10:46 Normal [facility] CULTURE URINEon 12-31-2021 CULTURE URINE Culture Observations : No growth Normal [facility] Comment on above: Performed By: #### C BC #### [facility] [address] [place] [address] Dr. Diann Dickerson US PREG AMNIOTIC FLUID [...] JAYSHREE DEL RIO Date: 2021-12-31 12:41 Normal [facility] GLUCOSE - 1HRon 12-17-2021 Glucose [Mass/Vol] 134 mg/dL Critically high 74-106 [facility] Comment on above: Performed By: #### G LU1HR #### [facility] [address] [place] [address] Dr. Diann Dickerson HEMOGRAM AND PLATELon 2021 Hematocrit (Bld) [Volume fraction] 36.7 % Normal 36.0-48.0 [facility] Comment on above: Performed By: #### C BC #### [facility] [address] [place] [address] Dr. Diann Dickerson Hemoglobin (Bld) [Mass/Vol] 12.5 g/dL Normal 12.0-16.0 [facility] Comment on above: Performed By: #### C BC #### [facility] [address] [place] [address] Dr. Diann Dickerson MCH (RBC) [Entitic mass] 33.2 pg Normal 26.7-34.0 [facility] Comment on above: Performed By: #### C BC #### [facility] [address] [place] [address] Dr. Diann Dickerson MCHC (RBC) [Mass/Vol] 34.1 g/dL Normal 29.9-35.2 [facility] Comment on above: Performed By: #### C BC #### [facility] [address] [place], [place] [address] Dr. Diann Dickerson MCV (RBC) [Entitic vol] 97.6 fL Normal 81.0-99.0 [facility] Comment on above: Performed By: #### C BC #### [facility] [address] [address] [address] Diann Dickerson PLT 207 103/ul Normal 150-450 [facility] Comment on above: Performed By: #### C BC #### [facility] [address] [place], [place] [address] Dr. Diann Dickerson RBC 3.76 106/ul Critically low 4.20-5.40 [facility] Comment on above: Performed By: #### C BC #### [facility] [address] [address] [address] Diann Dickerson WBC 6.3 103/ul Normal 4.0-11.0 [facility] Comment on above: Performed By: #### C BC #### [facility] [address] [place], [place] [address] Dr. Diann Dickerson US PREG ANATOMY SINGLEon [...] FL: 3.4 cm 20 weeks 5 days EFW:[id number]; FL/AC: [id number] FL/BPD: 0.168503 HC/AC: [id number] GESTATIONAL AGE: Age by EDC: 20 weeks 1 day ANGELA by EDC: 04/07/2022 Age by current US: 20 weeks 4 day ANGELA by current US: 04/04/2022 IMPRESSION: Normal anatomy scan *Reference: [facility] Practice Guideline for the performance of Obstetric Ultrasound Examinations, June 22, 2007. Electronically authenticated by: MARBIN MCKEON Date: 2021-11-20 07:34 Normal [facility] Vital Signs Date Time Vital Sign Value Performing Clinician Dipesh hooks 04-06-2025 13:26-0400 Body mass index (BMI) [Ratio] 31.01 kg/m2 Giulia Javan DO Work Phone: [facility] 04-06-2025 13:26-0400 Body weight 95.25 kg Giulia Javan DO Work Phone: [facility] 04-06-2025 13:26-0400 Diastolic blood pressure 70 mm[Hg] Giulia Javan DO Work Phone: [facility] 04-06-2025 13:26-0400 Systolic blood pressure 122 mm[Hg] Giulia Javan DO Work Phone: [facility] 03-30-2025 15:54-0400 Body mass index (BMI) [Ratio] 30.72 kg/m2 Giulia Javan DO Work Phone: [facility] 03-30-2025 15:54-0400 Body weight 94.35 kg Giulia Javan DO Work Phone: [facility] 03-30-2025 15:54-0400 Diastolic blood pressure 72 mm[Hg] Giulia Javan DO Work Phone: [facility] 03-30-2025 15:54-0400 Systolic blood pressure 118 mm[Hg] Giulia Javan DO Work Phone: [facility] 03-23-2025 10:38-0400 Body mass index (BMI) [Ratio] 30.42 kg/m2 Giulia Javan DO Work Phone: [facility] 03-23-2025 10:38-0400 Body weight 93.44 kg Giulia Javan DO Work Phone: [facility] 03-23-2025 10:38-0400 Diastolic blood pressure 78 mm[Hg] Giulia Javan DO Work Phone: [facility] 03-23-2025 10:38-0400 Systolic blood pressure 116 mm[Hg] Giulia Javan DO Work Phone: [facility] 03-16-2025 09:24-0400 Body mass index (BMI) [Ratio] 30.57 kg/m2 Margret PETER Work Phone: [facility] 03-16-2025 09:24-0400 Body weight 93.89 kg Margret Horton PA Work Phone: [facility] 03-16-2025 09:24-0400 Diastolic blood pressure 80 mm[Hg] Margret Sol PA Work Phone: [facility] 03-16-2025 09:24-0400 Systolic blood pressure 120 mm[Hg] Margret Horton PA Work Phone: [facility] 03-09-2025 11:20-0400 Body mass index (BMI) [Ratio] 30.42 kg/m2 Giulia Javan DO Work Phone: [facility] 03-09-2025 11:20-0400 Body weight 93.44 kg Giulia Javan DO Work Phone: [facility] 03-09-2025 11:20-0400 Diastolic blood pressure 70 mm[Hg] Giluia Javan DO Work Phone: [facility] 03-09-2025 11:20-0400 Systolic blood pressure 120 mm[Hg] Giulia Javan DO Work Phone: [facility] 02-23-2025 15:28-0400 Body mass index (BMI) [Ratio] 29.98 kg/m2 Giulia Javan DO Work Phone: [facility] 02-23-2025 15:28-0400 Body weight 92.08 kg Giulia Javan DO Work Phone: [facility] 02-23-2025 15:28-0400 Diastolic blood pressure 72 mm[Hg] Giulia Javan DO Work Phone: [facility] 02-23-2025 15:28-0400 Systolic blood pressure 124 mm[Hg] Giulia Javan DO Work Phone: [facility] 02-09-2025 10:48-0400 Body mass index (BMI) [Ratio] 29.09 kg/m2 Giulia Javan DO Work Phone: [facility] 02-09-2025 10:48-0400 Body weight 89.36 kg Giulia Javan DO Work Phone: [facility] 02-09-2025 10:48-0400 Diastolic blood pressure 70 mm[Hg] Giulia Javan DO Work Phone: [facility] 02-09-2025 10:48-0400 Systolic blood pressure 112 mm[Hg] Giulia Javan DO Work Phone: [facility] 01-19-2025 16:28-0400 Body mass index (BMI) [Ratio] 28.8 kg/m2 Giulia Javan DO Work Phone: [facility] 01-19-2025 16:28-0400 Body weight 88.45 kg Giulia Javan DO Work Phone: [facility] 01-19-2025 16:28-0400 Diastolic blood pressure 70 mm[Hg] Giulia Javan DO Work Phone: [facility] 01-19-2025 16:28-0400 Systolic blood pressure 111 mm[Hg] Giulia Javan DO Work Phone: [facility] 12-28-2024 13:17-0400 Body mass index (BMI) [Ratio] 28.21 kg/m2 Giulia Javan DO Work Phone: [facility] 12-28-2024 13:17-0400 Body weight 86.64 kg Giulia Javan DO Work Phone: [facility] 12-28-2024 13:17-0400 Diastolic blood pressure 58 mm[Hg] Giulia Javan DO Work Phone: [facility] 12-28-2024 13:17-0400 Systolic blood pressure 108 mm[Hg] Giulia Javan DO Work Phone: [facility] 11-17-2024 09:19-0500 Body mass index (BMI) [Ratio] 27.73 kg/m2 Margret PETER Work Phone: [facility] 11-17-2024 09:19-0500 Body weight 85.19 kg Margret PETER Work Phone: [facility] 11-17-2024 09:19-0500 Diastolic blood pressure 70 mm[Hg] Margret PETER Work Phone: [facility] 11-17-2024 09:19-0500 Systolic blood pressure 110 mm[Hg] Margret PETER Work Phone: [facility] 11-03-2024 10:57-0500 Body mass index (BMI) [Ratio] 27.65 kg/m2 Giulia Javan DO Work Phone: [facility] 11-03-2024 10:57-0500 Body weight 84.94 kg Giulia Javan DO Work Phone: [facility] 10-06-2024 16:40-0500 Body mass index (BMI) [Ratio] 27.59 kg/m2 Giulia Javan DO Work Phone: [facility] 10-06-2024 16:40-0500 Body weight 84.73 kg Giulia Javan DO Work Phone: [facility] 10-06-2024 16:40-0500 Diastolic blood pressure 68 mm[Hg] Giulia Javan DO Work Phone: [facility] 10-06-2024 16:40-0500 Systolic blood pressure 102 mm[Hg] Giulia Javan DO Work Phone: [facility] 09-10-2024 08:45-0500 Body mass index (BMI) [Ratio] 27.32 kg/m2 [facility] 09-10-2024 08:45-0500 Body weight 83.92 kg [facility] 09-10-2024 08:45-0500 Diastolic blood pressure 70 mm[Hg] [facility] 09-10-2024 08:45-0500 Systolic blood pressure 118 mm[Hg] [facility] 08-16-2024 09:15-0500 Body height 175.3 cm Margret PETER Work Phone: [facility] 08-16-2024 09:15-0500 Body mass index (BMI) [Ratio] 27.32 kg/m2 Margret Horton PA Work Phone: [facility] 08-16-2024 09:15-0500 Body weight 83.92 kg Margret Sol PA Work Phone: [facility] 08-16-2024 09:15-0500 Diastolic blood pressure 68 mm[Hg] Margret Horton PA Work Phone: [facility] 08-16-2024 09:15-0500 Systolic blood pressure 116 mm[Hg] Margret Horton PA Work Phone: [facility] Healthcare Encounters Encounter Date Encounter Type Care Provider Facility Start: 04-08-2025 End: 04-08-2025 Clinisync Result Encounter Giulia Javan DO Work Phone: [facility] External Department Unsolicited Start: 04-08-2025 End: 04-08-2025 Clinisync Result Encounter Giulia Javan DO Work Phone: [facility] Unsolicited Start: 04-07-2025 End: 04-07-2025 Clinisync Result Encounter Giulia Javan DO Work Phone: [facility] Unsolicited Start: 04-07-2025 End: 04-07-2025 Clinisync Result Encounter Giulia Javan DO Work Phone: [facility] Unsolicited Start: 04-06-2025 End: 04-06-2025 flow sheet Giulia Javan DO Work Phone: [facility] Comment on above: Third trimester preg nate ([facility]); 38 weeks gestation of ([facility]) Start: 04-06-2025 End: 04-06-2025 Bamboo flowsheet Giulia Javan DO Work Phone: [facility] Start: 04-06-2025 End: 04-06-2025 Bamboo flowsheet Giulia Javan DO Work Phone: [facility] Start: 04-06-2025 End: 04-06-2025 ambulatory GIULIA JAVAN Not Available Start: 03-30-2025 End: 03-30-2025 flow sheet Giulia Javan DO Work Phone: [facility] Comment on above: Third trimester preg nate ([facility]); 37 weeks gestation of ([facility]) Start: 03-30-2025 End: 03-30-2025 ambulatory GIULIA JAVAN Not Available Start: 03-30-2025 End: 03-30-2025 Bamboo flowsheet Giulia Javan DO Work Phone: [facility] Start: 03-30-2025 End: 03-30-2025 Bamboo flowsheet Giulia Javan DO Work Phone: [facility] Start: 03-23-2025 End: 03-23-2025 flow sheet Giulia Javan DO Work Phone: [facility] Comment on above: Third trimester preg nate ([facility]); 36 weeks gestation of ([facility]) Start: 03-23-2025 End: 03-23-2025 ambulatory GIULIA JAVAN Not Available Start: 03-16-2025 End: 03-16-2025 Bamboo flowsheet Margret PETER Work Phone: [facility] Start: 03-16-2025 End: 03-16-2025 Bamboo flowsheet Margret PETER Work Phone: [facility] Start: 03-16-2025 End: 03-16-2025 flow sheet Margret PETER Work Phone: [facility] Comment on above: Third trimester preg nate ([facility]); 36 weeks gestation of ([facility]) Start: 03-16-2025 End: 03-16-2025 ambulatory MARGRET HORTON Not Available Start: 03-09-2025 End: 03-09-2025 flow sheet Giulia Javan DO Work Phone: [facility] Comment on above: 34 weeks gestation o f ([facility]); Third trimester ([facility]) Start: 03-09-2025 End: 03-09-2025 ambulatory GIULIA JAVAN [...] OB Start: 02-09-2025 End: 02-09-2025 Bamboo flowsheet Giulia [...] Not Available Start: 01-28-2025 End: 01-28-2025 ambulatory [facility] Start: 01-19-2025 End: 01-19-2025 ambulatory GIULIA JAVAN [...] 11-17-2024 Bamboo flowsheet Margret PETER Work Phone: [facility] Start: 11-17-2024 End: 11-22-2024 Bamboo flowsheet Margret Horton [place] Work Phone: [facility] Start: 11-17-2024 End: 11-22-2024 Clinisync Result Encounter Margret Horton [place] Work Phone: [facility] External Department Unsolicited Start: 11-17-2024 End: 11-17-2024 ambulatory MARGRET HORTON Not Available Start: 11-17-2024 End: 11-17-2024 Patient encounter procedure Margret Angola PA Work Phone: [facility] Work Phone: Start: 11-17-2024 End: 11-17-2024 [...] 11-09-2024 End: 11-09-2024 Patient encounter procedure [facility] Comment on above: Screening for lipoid disorders; Screening for diabetes mellitus Start: 11-03-2024 End: 11-03-2024 ambulatory GIULIA JAVAN Not Available Start: 11-03-2024 End: 11-03-2024 flow sheet Giulia Javan DO Work Phone: [facility] Comment on above: Second trimester [...] flow sheet Giulia Javan DO Work Phone: [facility] Comment on above: 12 weeks gestation o f ; First trimester Start: 10-01-2024 End: 10-01-2024 Clinisync Result Encounter Giulia Javan DO Work Phone: [facility] External Department Unsolicited Start: 10-01-2024 End: 10-01-2024 Clinisync Result Encounter Giulia Javan DO Work Phone: [facility] External Department Unsolicited Start: 09-10-2024 End: 09-10-2024 ambulatory GIULIA JAVAN Not Available Start: 09-10-2024 End: 09-10-2024 Patient encounter procedure [facility] Javan Nurse [facility] Comment on above: Missed menses; , unspecified gestational age; Encounter for supervision of normal first in first trimester; 9 weeks gestation of Start: 08-16-2024 End: 08-16-2024 Bamboo flowsheet Margret PETER Work Phone: [facility] Start: 08-16-2024 End: 08-16-2024 Bamboo flowsheet Margret PETER Work Phone: [facility] Start: 08-16-2024 End: 08-16-2024 ambulatory MARGRET HORTON Not Available Start: 08-16-2024 End: 08-16-2024 Office outpatient visit 15 minutes Margret PETER Work Phone: [facility] Comment on above: Annual wellness visi t (Primary Dx) Start: 08-16-2024 End: 08-16-2024 Patient encounter procedure Margret PETER Work Phone: [facility] Work Phone: Start: 10-21-2022 End: 10-21-2022 ambulatory NICHOLAS LUDMILA Facility:[facility] Start: 10-17-2022 End: 10-17-[address] [...] Date Procedure Procedure Detail Performing Clinician Start: 04-08-2025 ALL CBC WITH AUTO DIFF Giulia Javan DO Work Phone: Start: 04-07-2025 HMHP CBC WITH PLATEL ET NO DIFFERENTIAL Giulia Javan DO Work Phone: Start: 04-06-2025 Urnls dip stick/tabl et rgnt [...] micrscp Giulia Javan DO Work Phone: Start: 11-17-2024 IGP,APTIMA HPV,AGE GDLN Margret PETER Work Phone: Start: 11-17-2024 Microscopic observat ion [Identifier] in Cervix by Cyto stain Giulia Javna DO Work Phone: Start: 11-15-2024 URINARY TRACT INFECT ION (HTRX) Giulia Javan DO Work Phone: Start: 11-09-2024 Lipid panel Rob Pelayo DO Work Phone: Start: 11-03-2024 Urnls dip stick/tabl et rgnt non-auto w/o micrscp Giulia Javan DO Work Phone: Start: 10-06-2024 Urnls dip stick/tabl et rgnt non-auto w/o micrscp Giulia Edouard DO Work Phone: Start: 10-01-2024 BOX TEST Giulia giron DO Work Phone: Start: 09-10-2024 End: 09-10-2024 Urnls dip stick/tablet rgnt non-auto w/o micrscp Giulia Edouard DO Work Phone: Start: 08-11-2023 Microscopic observat ion [Identifier] in Cervix by Cyto stain Giulia Edouard DO Work Phone: Start: 08-11-2023 Cytp cerv/vag auto t hin layer prep mnl screen Margret Angola PA Work Phone: Start: 04-01-2022 Delivery of Products [...] Screening for malign ant neoplasm of cervix [facility] Start: 11-17-2025 Screening for malign ant neoplasm of cervix [facility] Start: 05-23-2025 Influenza vaccination N [facility] Start: 05-19-2025 End: 05-19-2025 ambulatory 05/19/2025 11:10 AM EDT Visit [facility] [address] [place] [address] Giulia Edouard DO [address] [place] [address] [facility] Start: 04-06-2025 End: 04-06-2025 Patient encounter procedure [facility] Comment on above: Arrived Start: 03-30-2025 End: 03-30-2025 Patient encounter procedure [facility] Comment on above: Arrived Start: 03-23-2025 End: 03-23-2025 Patient encounter procedure 03/23/2025 4:00 PM EDT Routine [facility] [address] [facility] [phone] Giulia Edouard, DO [address] [place] [address] [facility] Start: 03-16-2025 End: 03-16-2026 CULTURE, GROUP B STREP WITH SUSCEPTIBLITY CULTURE, GROUP B STREP WITH SUSCEPTIBLITY Lab Routine Third trimester ([facility]) Expected: 03/16/2025, Expires: 03/16/2026 [facility] Work Phone: Comment on above: Expected: 03/16/2025 , Expires: 03/16/2026 Start: 03-16-2025 End: 03-16-2025 Patient encounter procedure 03/16/2025 10:00 AM EDT Routine [facility] [address] [facility] [address] Margret Horton PA [address] [place] [address] Arrived [facility] Comment on above: Arrived Start: 03-09-2025 End: 03-09-2025 Patient encounter procedure 03/09/2025 4:00 PM EDT Routine [facility] [address] [facility] [place] [phone] Giulia Edouard, DO [address] [place] [address] [facility] Start: 02-23-2025 End: 02-23-2025 [...] 11:00 AM EDT Routine [facility] [address] [facility] [place] [phone] Giulia Edouard, [address] [place] [address] Arrived [facility] Comment on above: Arrived Start: 02-03-2025 End: 02-03-2025 Professional / ancillary services management 02/03/2025 8:00 AM EDT Ancillary Procedure [facility] [address] [facility] [place] [phone] [facility] Start: 01-25-2025 End: 01-25-2025 Patient encounter procedure 01/25/2025 9:10 AM EDT Routine [facility] [address] [place] [phone] Giulia Edouard, [address] [place] [address] [facility] Start: 12-28-2024 End: 12-28-2024 Patient encounter procedure 12/28/2024 3:00 PM EDT Routine [facility] [address] [place] [phone] Giulia Edouard, DO [address] [place], [place] [id number] 24 weeks gestation of ; Second trimester ; Diabetes mellitus screening [facility] Comment on above: 24 weeks gestation o f ; Second trimester ; Diabetes mellitus screening Start: 12-28-2024 End: 12-28-2025 CBC panel - Blood by Automated count CBC Lab Routine 24 weeks gestation of Second trimester Diabetes mellitus screening Expected: 12/28/2024 (Approximate), Expires: 12/28/2025 [facility] Work Phone: Comment on above: Expected: 12/28/2024 (Approximate), Expires: 12/28/2025 Start: 12-28-2024 End: 12-28-2025 Measurement of glucose 1 hour after glucose challenge for glucose tolerance test Glucose tolerance, 1 hour Lab Routine 24 weeks gestation of Second trimester Diabetes mellitus screening Expected: 12/28/2024 (Approximate), Expires: 12/28/2025 [facility] Comment on above: Expected: 12/28/2024 (Approximate), Expires: 12/28/2025 Start: 12-28-2024 End: 04-29-2025 US for US OB follow up transabdominal approach Imaging Routine Excessive growth affecting management of , antepartum, single or unspecified fetus Expected: 12/28/2024, Expires: 04/29/2025 [facility] Comment on above: Expected: 12/28/2024 , Expires: 04/29/2025 Start: 11-29-2024 End: 11-29-2024 Patient encounter procedure [facility] Start: 11-29-2024 End: 11-29-2024 Professional / ancillary services management 11/29/2024 8:00 AM EDT Ancillary Procedure [facility] [address] [facility] [phone] [facility] Start: 11-03-2024 End: 11-03-2024 Patient encounter procedure 11/03/2024 3:40 PM EST Routine [facility] [address] [facility] [phone] Giulia Edouard, [address] [address] [facility] Start: 11-03-2024 End: 12-01-2024 Alpha fetoprotein, maternal Alpha fetoprotein, maternal Lab Routine Need for maternal serum alpha-protein (MSAFP) screening Expected: 11/03/2024 (Approximate), Expires: 12/01/2024 [facility] Comment on above: Expected: 11/03/2024 (Approximate), Expires: 12/01/2024 Start: 11-03-2024 End: 11-03-2025 US for US OB 14+ weeks anatomy scan Imaging Routine Screening, , for anatomic survey Expected: 11/03/2024 (Approximate), Expires: 11/03/2025 [facility] Work Phone: Comment on above: Expected: 11/03/2024 (Approximate), Expires: 11/03/2025 Start: 2024 Screening for malign ant neoplasm of cervix HPV/Cotest [facility] Start: 10-06-2024 End: 10-06-2024 Patient encounter procedure 10/06/2024 10:50 AM EST Routine [facility] [address] [place] [phone] Giulia Edouard, DO [address] [facility] [address] [place] [address] [facility] Start: 09-10-2024 End: 09-10-2025 ABO/Rh ABO/Rh Lab Routine Missed menses , unspecified gestational age Expected: 09/10/2024 (Approximate), Expires: 09/10/2025 [facility] Comment on above: Expected: 09/10/2024 (Approximate), Expires: 09/10/2025 Start: 09-10-2024 End: 09-10-2025 Blood type and Indirect antibody screen panel - Blood Type and screen Lab Routine Missed menses , unspecified gestational age Expected: 09/10/2024 (Approximate), Expires: 09/10/2025 [facility] Work Phone: Comment on above: Expected: 09/10/2024 (Approximate), Expires: 09/10/2025 Start: 09-10-2024 End: 09-10-2025 Drugs of abuse panel - Urine by Screen method Rapid drug screen, urine Lab Routine , unspecified gestational age Encounter for supervision of normal first in first trimester Expected: 09/10/2024 (Approximate), Expires: 09/10/2025 [facility] Comment on above: Expected: 09/10/2024 (Approximate), Expires: 09/10/2025 Start: 09-10-2024 End: 09-10-2025 US Pelvis transvaginal US OB transvaginal Imaging Routine Missed menses Expected: 09/10/2024 (Approximate), Expires: 09/10/2025 [facility] Comment on above: Expected: 09/10/2024 (Approximate), Expires: 09/10/2025 Start: 09-10-2024 End: 09-10-2024 Patient encounter procedure 09/10/2024 8:20 AM EST Routine [facility] [address] [place] [address] [place] [address] [facility] Start: 09-10-2024 End: 09-10-2024 Professional / ancillary services management 09/10/2024 8:00 AM EST Ancillary Procedure [facility] [address] [place], [place] [address] [address] [facility] Start: 08-16-2024 End: 08-16-2025 Lipid 1996 panel - Serum or Plasma Lipid panel Lab Routine Annual wellness visit Expected: 08/16/2024 (Approximate), Expires: 08/16/2025 [facility] Comment on above: Expected: 08/16/2024 (Approximate), Expires: 08/16/2025 Start: 05-23-2024 Influenza vaccination Influenza Vacc ine (#1) [facility] Bacteria identified in Urine by Culture [...] (GENITO/STI) Lab Routine Vaginal discharge Ordered: 11/17/2024 [facility] Comment on above: Ordered: 11/17/2024 Comprehensive metabo lic 2000 panel - Serum or Plasma Comprehensive metabolic panel Lab Routine Annual wellness visit Ordered: 08/16/2024 [facility] Comment on above: Ordered: 08/16/2024 Cytology Cervical or vaginal smear or scraping study Pap Smear Pathology and Cytology Routine Well woman exam with routine gynecological exam Ordered: 11/17/2024 [facility] Comment on above: Ordered: 11/17/2024 Hemoglobin A1c/Hemoglobin.total in Blood Hemoglobin A1c Lab Routine Annual wellness visit Ordered: 08/16/2024 [facility] Comment on above: Ordered: 08/16/2024 Hemoglobin A1c/Hemoglobin.total in Blood Hemoglobin A1c Lab Routine Missed menses , unspecified gestational age Ordered: 09/10/2024 [facility] Comment on above: Ordered: 09/10/2024 Hepatitis B virus surface Ag [Presence] in Serum or Plasma by Immunoassay Hepatitis B surface antigen Lab Routine Missed menses , unspecified gestational age Ordered: 09/10/2024 [facility] Comment on above: Ordered: 09/10/2024 Hepatitis C virus Ab [Presence] in Serum or Plasma by Immunoassay Hepatitis C antibody Lab Routine Missed menses , unspecified gestational age Ordered: 09/10/2024 [facility] Comment on above: Ordered: 09/10/2024 HIV-1/HIV-2 antigen/antibody combination immunoassay HIV-1 and HIV-2 antibodies Lab Routine Missed menses , unspecified gestational age Ordered: 09/10/2024 [facility] Comment on above: Ordered: 09/10/2024 Human papilloma viru s DNA [Presence] in Unspecified specimen by Probe with amplification HPV DNA probe, amplified Microbiology Routine Well woman exam with routine gynecological exam Ordered: 11/17/2024 [facility] Comment on above: Ordered: 11/17/2024 Neisseria gonorrhoea e DNA [Presence] in Unspecified specimen by PREMA with probe detection Neisseria gonorrhea DNA probe, direct Lab Routine Vaginal discharge Ordered: 11/17/2024 [facility] Comment on above: Ordered: 11/17/2024 Reagin Ab [Presence] in Serum by RPR RPR Lab Routine Missed menses , unspecified gestational age Ordered: 09/10/2024 [facility] Comment on above: Ordered: 09/10/2024 Rubella antibody, IgG Rubella an tibody, IgG Lab Routine Missed menses , unspecified gestational age Ordered: 09/10/2024 [facility] Comment on above: Ordered: 09/10/2024 SURESWAB(R) ADVANCED VAGINITIS PLUS, TMA SURESWAB(R) ADVANCED VAGINITIS PLUS, TMA Pathology and Cytology Routine Exposure to STD Ordered: 11/17/2024 [employer] Work Phone: Comment on above: Ordered: 11/17/2024 Thyrotropin [Units/volume] in Serum or Plasma TSH Lab Routine Annual wellness visit Ordered: 08/16/2024 [facility]: Comment on above: Ordered: 08/16/2024 Payers Date Payer Category Payer Unknown [id number] 2022 Private Health Insurance [id number] 2019 Medicaid (Managed Care) 1.2. [id number] 1994 Unknown [id number] 2.16.84 0.1.365753.3.579.2.593 1994 Unknown [id number] 2.16.84 0.1.413722.3.579.2.593 1994 Unknown [id number] 2.16.84 0.1.863123.3.579.2.593 1994 Unknown [id number] 2.16.84 0.1.206699.3.579.2.593 1994 Unknown [id number] 2.16.84 0.1.394419.3.579.2.593 1994 Unknown [id number] 2.16.84 0.1.071371.3.579.2.593 1994 Unknown [id number] 2.16.84 0.1.130355.3.579.2.593 1994 Unknown [id number] 2.16.84 0.1.632671.3.579.2.593 1994 Unknown [id number] 2.16.84 0.1.992031.3.579.2.593 1994 Unknown [id number] 2.16.84 0.1.353943.3.579.2.593 1994 Unknown [id number] 2.16.84 0.1.725270.3.579.2.593 1994 Unknown [id number] 2.16.8 40.1.628347.3.579.2.1259 1994 Unknown [id number] 2.16.8 40.1.489311.3.579.2.9 1994 Unknown [id number] 2.16.8 40.1.949926.3.579.2.9 1994 Unknown [id number] 2.16.8 40.1.506397.3.579.2.9 1994 Unknown [id number] 2.16.8 40.1.616662.3.579.2.9 1994 Unknown [id number] 2.16.8 40.1.833262.3.579.2.9 1994 Unknown [id number] 2.16.84 0.1.148559.3.579.2.1259 1994 Unknown [id number] 2.16.84 0.1.082889.3.579.2.9 1994 Unknown [id number] 2.16.84 0.1.024589.3.579.2.1259 1994 Unknown [id number] 2.16.84 0.1.318376.3.579.2.9 1994 Unknown [id number] 2.16.84 0.1.648039.3.579.2.9 1994 Unknown [id number] 2.16.84 0.1.320260.3.579.2.9 1994 Unknown [id number] 2.16.84 0.1.450936.3.579.2.9 1994 Unknown [id number] 2.16.84 0.1.410890.3.579.2.9 1994 Unknown [id number] 2.16.84 0.1.109221.3.579.2.9 1994 Unknown [id number] 2.16.84 0.1.576029.3.579.2.9 1994 Unknown [id number] 2.16.84 0.1.593964.3.579.2.9 1994 Unknown [id number] 2.16.84 0.1.147603.3.579.2.9 1994 Unknown [id number] 2.16.84 0.1.552277.3.579.2.9 1959 Unknown [id number] 1959 Unknown [id number] 1959 Unknown [id number] Social History Date Type Detail Facility Tobacco smoking stat [facility] Tobacco smoking consumption unknown [facility] Start: 1994 Sex assigned at Female [facility] Start: 08-09-2024 Gender identity Identifies as female gender (finding) [facility] Start: 08-09-2024 Sexual orientation Heterosexual (fin ding) [facility] Start: 07-22-2024 [facility] Clinical Notes 11-19-2021 to 03-30-2025 Kaya [...] nursing note reviewed. Exam conducted with a launch leader present. Vitals: Estimated body mass index is 30.72 kg/m as calculated from the following: Height as of 24: 5' 9 . Weight as of this encounter: 208 lb. BP: 118/72 Patient's last menstrual period was 07/08/2024. ASSESSMENT & PLAN ICD-10-CM 1. Third trimester ([facility]) Z34.93 2. 37 weeks gestation of ([facility]) Z3A.37 Return OB: Patient presents today for [...] Giulia Edouard DO documented in this encounter [facility] 03-23-2025 History of Present illness Narrative Reason [...] nursing note reviewed. Exam conducted with a launch leader present. Vitals: Estimated body mass index is 30.42 kg/m as calculated from the following: Height as of 08/16/24: 5' 9 . Weight as of this encounter: 206 lb. BP: 116/78 Patient's last menstrual period was 07/08/2024. ASSESSMENT & PLAN ICD-10-CM 1. Third trimester ([facility]) Z34.93 Urine dip 2. 36 weeks gestation of ([facility]) Z3A.36 Urine dip Return OB: Patient presents [...] Giulia Edouard DO documented in this encounter [facility] 03-16-2025 History of Present illness Narrative Reason [...] ASSESSMENT & PLAN ICD-10-CM 1. Third trimester ([facility]) Z34.93 POCT urinalysis dipstick manually resulted CULTURE, GROUP B STREP WITH SUSCEPTIBLITY CULTURE, GROUP B STREP WITH SUSCEPTIBLITY 2. 36 weeks gestation of ([facility]) Z3A.36 Patient is doing well but has [...] of: ROME Adams documented in this encounter [facility] 02-23-2025 History of Present illness Narrative Reason [...] nursing note reviewed. Exam conducted with a launch leader present. Vitals: Estimated body mass index is [...] Giulia Edouard DO documented in this encounter [facility] 02-09-2025 History of Present illness Narrative Reason [...] nursing note reviewed. Exam conducted with a launch leader present. Vitals: Estimated body mass index is [...] to current . Pt was seen at [facility] for amnisure and was negative. Pt still [...] Giulia Edouard DO documented in this encounter [facility] 01-28-2025 Note [facility] Note Reason for cardiology [...] by mouth before breakfast., Disp: , Rfl: [id number] ( Multi-DHA,with vit K,) 27 mg iron-800 [...] Otherwise, follow-up in 2 months Nayana Redd MD,[facility] 01-19-2025 History of Present illness Narrative Reason [...] nursing note reviewed. Exam conducted with a launch leader present. Vitals: Estimated body mass index is [...] Giulia Edouard DO documented in this encounter [facility] 12-28-2024 History of Present illness Narrative Reason [...] nursing note reviewed. Exam conducted with a launch leader present. Vitals: Estimated body mass index is [...] Giulia Edouard DO documented in this encounter [facility] 11-17-2024 History of Present illness Narrative Reason [...] nursing note reviewed. Exam conducted with a launch leader present. Vitals: Estimated body mass index is [...] of: ROME Adams documented in this encounter [facility] 11-09-2024 History of Present illness Narrative Employee presents for Biometric Screening. documented in this encounter [facility] 11-03-2024 History of Present illness Narrative Reason [...] nursing note reviewed. Exam conducted with a launch leader present. Vitals: Estimated body mass index is [...] Giulia Edouard DO documented in this encounter [facility] 10-06-2024 History of Present illness Narrative Reason [...] nursing note reviewed. Exam conducted with a launch leader present. Vitals: Estimated body mass index is [...] or undercooked meat, and [facility]. Patient has been consulted regarding any [...] Giulia Edouard DO documented in this encounter [facility] 09-10-2024 History of Present illness Narrative Reason [...] or undercooked meat, and [facility]. Patient has also been advised to [...] Jaimee Beckman MA documented in this encounter [facility] 08-16-2024 History of Present illness Narrative Reason [...] of: ROME Adams documented in this encounter [facility] 11-19-2021 Note PROCEDURE: XR WRIST LT MIN 3 V COMPARISON: None. HISTORY: Pain of left wrist FINDINGS: BONES:No fracture, acute abnormality, or significant arthropathy. SOFT TISSUES:Negative. No visible soft tissue swelling. EFFUSION:None visible. OTHER: Negative. IMPRESSION: No acute abnormality Electronically authenticated by: MARBIN MCKEON Date: 2021-11-19 13:16 [facility] Evaluation note Diagnosis Annual wellness visit- Primary documented in this encounter [facility] HealthcareEvaluation note* Diagnosis Missed menses , unspecified gestational age Encounter for supervision of normal first in first trimester 9 weeks gestation of documented in this encounter [facility] HealthcareEvaluation note* Diagnosis 12 weeks gestation of First trimester state, incidental documented in this encounter [facility] HealthcareEvaluation note* Diagnosis Second trimester state, [...] PLAN ICD-10-CM 1. 34 weeks gestation of ([facility]) Z3A.34 POCT urinalysis dipstick manually resulted 2. Third trimester ([facility]) Z34.93 POCT urinalysis dipstick manually resulted Return [...] of Present illness Narrative * Kaya Oh, JUAN LUIS - 04/06/2025 [...] nursing note reviewed. Exam conducted with a launch leader present. Vitals: Estimated body mass index is 31.01 kg/m as calculated from the following: Height as of 08/16/24: 5' 9 . Weight as of this encounter: 210 lb. BP: 122/70 Patient's last menstrual period was 07/08/2024. ASSESSMENT & PLAN ICD-10-CM 1. Third trimester ([facility]) Z34.93 POCT urinalysis dipstick manually resulted 2. 38 weeks gestation of ([facility]) Z3A.38 Return OB: Patient presents today for [...] and content) DATE CREATED AUTHOR 10/24/2022 [facility] DATE CREATED AUTHOR AUTHOR'S ORGANIZ ATION 01/31/2025 [facility] DATE CREATED AUTHOR AUTHOR'S ORGANIZ ATION 04/10/2025 [facility] dical Specialists EPIC Care Teams (unrecognized sec tion and content) Lard Mixer Relationship Specialty Start Date End Date Deanne Pierre MD [address] [place] [address] PCP - General Family Medicine 08/11/23 Lard Mixer Relationship Specialty Start Date End Date Deanne Pierre MD [address] [place] [address] PCP - General Family Medicine 08/11/23 Lard Mixer Relationship Specialty Start Date End Date Deanne Pierre MD [address] [place] [address] PCP - General Family Medicine 08/11/23 Lard Mixer Relationship Specialty Start Date End Date Deanne Pierre MD [address] [place] [address] PCP - General Family Medicine 08/11/23 Lard Mixer Relationship Specialty Start Date End Date Deanne Pierre MD [address] [place] [address] PCP - General Family Medicine 08/11/23 Lard Mixer Relationship Specialty Start Date End Date Deanne Pierre MD [address] [place] [facility] [address] PCP - General Family Medicine 08/11/23 Lard Mixer Relationship Specialty Start Date End Date Deanne Pierre MD [address] [place] [facility] [address] PCP - General Family Medicine 08/11/23 Lard Mixer Relationship Specialty Start Date End Date Deanne Pierre MD [address] [place] [facility] [address] PCP - General Family Medicine 08/11/23 Lard Mixer Relationship Specialty Start Date End Date Deanne Pierre MD [address] [facility], [facility] PCP - General Family Medicine 08/11/23 Lard Mixer Relationship Specialty Start Date End Date Deanne Pierre MD [address] [place] [facility] [address] PCP - General Family Medicine 08/11/23 Lard Mixer Relationship Specialty Start Date End Date Deanne Pierre MD [address] [place] [facility] [address] PCP - General Family Medicine 08/11/23 Lard Mixer Relationship Specialty Start Date End Date Deanne Pierre MD PCP - General Family Medicine 08/11/23 Lard Mixer Relationship Specialty Start Date End Date Deanne Pierre MD [address] [place] [facility] [place] [address] PCP - General Family Medicine 02/09/25 Lard Mixer Relationship Specialty Start Date End Date Deanne Pierre MD [address] [place] [facility] [place] [address] PCP - General Family Medicine 02/09/25 Lard Mixer Relationship Specialty Start Date End Date Deanne Pierre MD [address] [place] [facility] [place] [address] PCP - General Family Medicine 02/09/25 Lard Mixer Relationship Specialty Start Date End Date Deanne Pierre MD [address] [place] [facility] [place] [address] PCP - General Family Medicine 02/09/25 Lard Mixer Relationship Specialty Start Date End Date Deanne Pierre MD [address] [place] [facility] [place] [address] PCP - General Family Medicine 02/09/25 Lard Mixer Relationship Specialty Start Date End Date Denane Pierre MD [address] [place] [facility] [place] [address] PCP - General Family Medicine 02/09/25 Lard Mixer Relationship Specialty Start Date End Date Deanne Pierre MD [address] [place] [facility] [place] [address] PCP - General Family Medicine 02/09/25 Lard Mixer Relationship Specialty Start Date End Date Deanne Pierre MD [address] [place] [facility] [place] [address] PCP - General Family Medicine 02/09/25 Lard Mixer Relationship Specialty Start Date End Date Deanne Pierre MD [address] [place] [address] PCP - General Family Medicine 02/09/25 Reason [...] BE BASED ON THE PRIMARY CLINICAL RECORDS. [facility]. provides no warranty or guarantee of the accuracy or completeness of information in this document.
== END 2025-04-14 15:09 | disposition home or self-care (01) ==
LOC: FBCO 08:45
PROVIDERS: PCP Family Medicine; Visit Provider Obstetrics & Gynecology
DX: Z39.1 Encounter for care and examination of lactating mother (principal)
CPT/HCPCS: G0463

== ENCOUNTER 2025-04-18 09:14 | Outpatient (OUT) | payer BC, OTHER, SELFPAY ==
--- OUTSIDE RECORDS SUMMARY | 2023-10-27 05:00 | XMS_ITS ---
Author Organization [facility] [place] Address [address] [place] [address] Care Team Providers Care Marketing Co Op Name Role Phone Colt Pierre Primary Care Provider Ofelia Bee Unavailable [phone] Allergies No Known Allergies REASON FOR VISIT toenail Medications Medication SIG (Take, Route, Fr equency, Duration) Notes Start Date End Date Status Apri 0.15-30 MG-MCG Oral for 84 Days Active Social History Tobacco Use: Social History Observation Description Date Details (start date - stop date) Never Smoker NA - NA Tobacco Use/Smoking Question Answer Notes Patient is a nonsmoker Vital Signs Weight 178 lbs 10/27/2023 Height 69 in 10/27/2023 Temperature 98.8 degrees Fahrenheit 10/27/19 24 Heart Rate 80 /min 10/27/2023 BMI 26.28 kg/m2 10/27/2023 Oximetry 97 % 10/27/2023 Encounters Encounter Location Date Provider Diagnosis [facility] (PODIATRY) [address] [place] [address] [address] [place] [address] 10/27/2023 Ofelia Bee Ingrowing nail L60.0 and Onycholysis L60.1 Assessments Encounter Date Diagnosis (ICD Code) Assessment Notes Treatment Notes Treatment Clinical Notes Section Notes 10/27/2023 Ingrowing nail (ICD-10 - L60.0) The patient is a healthy 28-year-old female who presents for evaluation of a painful nail spicule affecting the left great toe. The patient states she wore a pair of boots several weeks ago that irritated her big toes. When she took boots off, she noted subungual hematomas of both great toes. The right hallux nail is still present, but partially detached. The loose portions of this nail were trimmed without difficulty. No sign of infection in the right great toe. The left great toenail is mostly absent, but a spicule remains in the medial nail fold. After verbal consent, this was removed using a hemostat. Bacitracin and Band-Aid were applied. She should keep the area clean and dry and monitor for any signs of infection. She was advised that both toenails will regrow. If she has any more issues with pain or concerns for infection she should follow-up. The patient is happy with the plan. 10/27/2023 Onycholysis (ICD-10 - L60.1) Plan Of Treatment Treatment Notes Assessment Notes Ingrowing nail The patient is a healthy 28-year-old female who presents for evaluation of a painful nail spicule affecting the left great toe. The patient states she wore a pair of boots several weeks ago that irritated her big toes. When she took boots off, she noted subungual hematomas of both great toes. The right hallux nail is still present, but partially detached. The loose portions of this nail were trimmed without difficulty. No sign of infection in the right great toe. The left great toenail is mostly absent, but a spicule remains in the medial nail fold. After verbal consent, this was removed using a hemostat. Bacitracin and Band-Aid were applied. She should keep the area clean and dry and monitor for any signs of infection. She was advised that both toenails will regrow. If she has any more issues with pain or concerns for infection she should follow-up. The patient is happy with the plan. Next Appt Details Follow Up: prn, Reason: Progress Notes * Sidra ORTEGA RDOB:[birth year] (28 yo F)Acc No.[id number]:10/27/2023 New Patient Patient: Sidra Joshua Provider: Toni Bee PA-C :1995 A ge:28 Y S ex:Female Date:10/27/2023 Address:[address], [id number] Pcp:Nadeem Pierre MD Check In:08:44 AM ESTCheck O ut:09:06 AM EST Subjective: * Chief Complaints: * T oenail * HPI: G eneral: Patient was out walking in rhonda boots. She did some type of unknown damage to her Left great toenail, which did fall off but some of the nail is left and is bothering her. She did also do something to her right great toe nail but does not hurt her but wants us to also look at it. * ROS: G eneral/Constitutional: Chills d enies. F ever d enies. W eight gain?denies. W eight loss d enies. S kin: Skin Ulcers d enies. S kin lesion(s) d enies. ? C ardiovascular: Difficulty breathing on exertion d enies. L eg cramps?denies. E leo d enies. C hest pain d enies. R espiratory: Difficulty breathing d enies. D yspnea d enies.?Cough d enies. G astrointestinal: Diarrhea d enies. N ausea d enies. V omiting?denies. M usculoskeletal: Bone/Joint Symptoms d enies. C residential Pain d enies.?Leg cramps d enies. N eurologic: Numbness d enies. T ingling d enies . G ait abnormality d enies. ? H ematology: Anemia D enies. E asy bruising d enies. ? A ll Other Systems: Review of Systems (ROS) S ee HPI for details,All others negative except those mentioned in HPI. * Active Problem List ?Problem List has not been verified* Medical History: * Surgical History: D enies Past Surgical History * Hospitalization/Major Diagno stic Procedure: D enies Past Hospitalization * Family History: F ather: alive. M other: alive. * Social History: T obacco Use: T obacco Use/Smoking P atient is a n onsmoker * Medications: T akingApri(Desogestrel-Ethinyl Estradiol) 0.15-30 MG-MCG Tablet Oral Taking Apri(Desogestrel-Ethinyl Estradiol) 0.15-30 MG-MCG Tablet Oral * Allergies: N .K.D.A.no[Allergies Verified] Objective: * Vitals: W t:178 lbs, Ht: 69 in, Temp:98.8 F, HR:80 /min, BMI:26.28 Index, Pain scale:1 1- 10, Oxygen sat %:97 %, Ht-cm: 175.26 cm, Wt-k.74 kg. * Examination: P odiatry Examination: SKIN: s kin intact, n o sign of infection Right hallux nail is noted to have an old subungual hematoma. The nail is partially detached distally. No SOI. Left hallux nail is almost completely absent. The medial nail border is still present in the nail fold. No SOI, but there is tenderness with palpation of the nail spicule.. MUSCULOSKELETAL: p ain on palpation limited to left hallux nail spicule, Range of motion of ankle and foot is within normal limits, Muscle strength is 5/5 in all planes. NEUROLOGICAL: L ight touch sensation is intact in all nerve distributions, Negative Tinel sign. VASCULAR: P alpable pedal pulses bilaterally, No swelling, No calf pain on squeeze. Assessment: * Assessment: 1. I ngrowing nail - L60.0 (Primary) 2 . O nycholysis - L60.1 Plan: * Treatment: * Procedure Codes: * Follow Up: p rn * * Sign off status: Completed Visit Status: C HK (Check Out) true * Provider: Toni Bee PA-C Date: 0 10/27/2023 Generated for Printi judy/Rigoberto/eTransmitting on: 0 04/18/2025 09:19 AM EDT History and Physical Notes * Examination Category Sub-Category Detail Notes Category Not es Podiatry Examination SKIN: skin intact , no sign of infection Right hallux nail is noted to have an old subungual hematoma. The nail is partially detached distally. No SOI. Left hallux nail is almost completely absent. The medial nail border is still present in the nail fold. No SOI, but there is tenderness with palpation of the nail spicule. MUSCULOSKELETAL: pain on palpation li mited to left hallux nail spicule, Range of motion of ankle and foot is within normal limits, Muscle strength is 5/5 in all planes NEUROLOGICAL: Light touch sensatio n is intact in all nerve distributions, Negative Tinel sign VASCULAR: Palpable pedal pulse s bilaterally, No swelling, No calf pain on squeeze
--- OUTSIDE RECORDS SUMMARY | 2024-03-01 13:45 | XMS_ITS ---
Author Organization The [facility] in [place] Address [address] [place] [address] Care Team Providers Care Marine Equipment Preservation Inspector Name Role Phone Colt Hdez Primary Care Provider DEANNE HDEZ Unavailable [phone] Allergies No Known Allergies REASON FOR VISIT patient is c/o neck pains with tingling, headaches Medications Medication SIG (Take, Route, Fr equency, Duration) Notes Start Date End Date Status Apri 0.15-30 MG-MCG Oral for 84 Days Active Diclofenac Sodium 75 MG 1 tablet as need ed Orally Twice a day 03/01/2024 Active tiZANidine HCl 4 MG 2 tablets Orally at bedtime for 15 03/01/2024 Active Social History Tobacco Use: Social History Observation Description Date Details (start date - stop date) Never Smoker NA - NA Tobacco Use/Smoking Question Answer Notes Patient is a nonsmoker AUDIT-C (Standard) Question Answer Notes Did you have a drink contain ing alcohol in the past year? Yes How often did you have six o r more drinks on one occasion in the past year? Never (0 point) How many drinks did you have on a typical day when you were drinking in the past year? 1 or 2 drinks (0 point) How often did you have a dri nk containing alcohol in the past year? 2 to 3 times a week (3 points) Points 3 Interpretation Positive Problems Problem Type SNOMED Code ICD Code Onset Dates Problem Status W/U Status Risk Notes Problem Neck pain (M54.2) Active confirmed Vital Signs Weight 179 lbs 03/01/2024 Height 69 in 03/01/2024 Blood pressure systolic 138 mm Hg 03/01/20 24 Blood pressure diastolic 80 mm Hg 024 BMI 26.43 kg/m2 03/01/2024 Encounters Encounter Location Date Provider Diagnosis [place] [address] [facility] [place] [address] 03/01/2024 DEANNE HDEZ Neck pain M54.2 Assessments Encounter Date Diagnosis (ICD Code) Assessment Notes Treatment Notes Treatment Clinical Notes Section Notes 03/01/2024 Neck pain (ICD-10 - M54.2) x-=ray and meds - if not better - PT Plan Of Treatment Medication Medication Name Sig Start Date Stop Date Notes Diclofenac Sodium 75 MG 1 tablet as need ed Orally Twice a day 03/01/2024 tiZANidine HCl 4 MG 2 tablets Orally at bedtime for 15 06/2024 Treatment Notes Assessment Notes Neck pain x-=ray and meds - if not better - PT Pending Test Test Name Order Date XR CSPINE MIN 4 VIEWS 03/01/2024 Progress Notes * MARIA INES Sidra RDOB:[birth year] (28 yo F)Acc No.[id number]:03/01/2024 Progress Note Patient: Sidra JONES Provider: Kath Hdez M.D. :1995 A ge:28 Y S ex:Female Date:03/01/2024 Address:[facility] [address] [facility] Pcp:Deanne Hdez MD Check In:05:17 PM ESTCheck O ut:05:48 PM EST Subjective: * Chief Complaints: * P atient is c/o neck pains with tingling, headaches * HPI: D epression Screening: PHQ-2 (2015 Edition) L ittle interest or pleasure in doing things??Not at all F eeling down, depressed, or hopeless? N ot at all T otal Score 0 G eneral: no trauma - tried chiropracter - massages changed pillows \feelign burning and tingling and headaches mor e frontal but sems like starts in neck no radiculopathy into hands. * Active Problem List M54.2 Neck pain Modified On:03/01/2024W/U Status:confirmed * Medical History: * Surgical History: N o Surgical History documented. * Hospitalization/Major Diagno stic Procedure: N o Hospitalization History. * Family History: F ather: alive. M other: alive. * Social History: T obacco Use: T obacco Use/Smoking P atient is a n onsmoker D rug/Alcohol: A LINDSEY-C (Standard) D id you have a drink containing alcohol in the past year? Y es H ow often did you have six or more drinks on one occasion in the past year? N ever (0 point) H ow many drinks did you have on a typical day when you were drinking in the past year? 1 or 2 drinks (0 point) H ow often did you have a drink containing alcohol in the past year? 2 to 3 times a week (3 points) P oints 3 I nterpretation P ositive * Medications: T akingApri(Desogestrel-Ethinyl Estradiol) 0.15-30 MG-MCG Tablet Oral Medication List reviewed and reconciled with the patientTaking Apri(Desogestrel-Ethinyl Estradiol) 0.15-30 MG-MCG Tablet Oral Medication List reviewed and reconciled with the patient * Allergies: N .K.D.A.no[Allergies Verified] Objective: * Vitals: W t:179lbs, Ht: 69 in, BP:138/80mm Hg, BMI:26.43Index, Ht-cm: 175.26 cm, Wt-k.19 kg. * Examination: A bdomen Exam:: P oor rom in neckk due to pain - midline tendernss mid c-spine. Assessment: * Assessment: 1. N clifford pain - M54.2 (Primary) Plan: * Treatment: * Procedure Codes: * Preventive Medicine: Screenings/Counseling: B NV ACTION PLAN Above Normal BMI Follow-up D ietary management education, guidance, and counseling * * Sign off status: Completed Visit Status: C HK (Check Out) true * Provider: Kath Hdez M.D. Date: 0 03/01/2024 Generated for Alok kim/Rigoberto/eTvaishalismitting on: 0 04/18/2025 09:19 AM EDT History and Physical Notes * HPI (History of Present Illness) Category Sub-Category Detail Notes Category Not es Depression Screening PHQ-2 (2015 Edition) Little interest or pleasure in doing things?: Not at all Feeling down, depressed, or hopeless?: N ot at all Total Score: 0 Examination Category Sub-Category Detail Notes Category Not es Abdomen Exam: Poor rom in neckk due to pain - midline tendernss mid c-spine
--- OUTSIDE RECORDS SUMMARY | 2024-03-04 08:37 | XMS_ITS ---
Author Organization The [facility] in [place] Address [address] [place] [address] Care Team Providers Care Tar Leveler Name Role Phone Colt Hdez Primary Care Provider DEANNE HDEZ Unavailable [phone] REASON FOR VISIT XR results Encounters Encounter Location Date Provider Diagnosis [facility] [address] [place] [address] 03/04/2024 DEANNE HDEZ Plan Of Treatment No Information Progress Notes * Sidra ORTEGA RDOB:[birth year] (28 yo F)Acc No.[id number]:03/04/2024 Patient: [place] P[place]ONALEXANDR[place]idra [place] Arash :1995 A ge:28 Y S ex:Female Address[address] [facility] [address] * true * Date: Generated for Printi ng/Fajudahg/eTransmitting on: 0 04/18/2025 09:20 AM EDT
--- OUTSIDE RECORDS SUMMARY | 2025-04-06 16:00 | XMS_ITS | Encounter Summary ---
Author Organization [facility] Address [address] [facility] [place] [address] Care Team Providers Care Primer Inserting Machine Operator Name Role Phone Nadeem Pierre MD Primary Care Provider [phone] Reason for Visit * Reason Comments Routine Visit Encounter Details Date Type Department Care Team (Late st Contact Info) Description 04/06/2025 4:00 PM EDT Routine [facility] [place] [facility] [address] [facility] [place] [phone] Fidencio Edouard DO [address] [facility] [address] [place] [id number] Third trimester ([facility]); 38 weeks gestation of ([facility]) Social History Tobacco Use Types Packs/Day Years [...] Sign Reading Time Taken Comments Blood Pressure 122/70 04/06/2025 1:26 PM EDT Pulse - - Temperature - - Respiratory Rate - - Oxygen Saturation - - Inhaled Oxygen Concentration - - Weight 95.3 kg (210 lb) 04/06/2025 1:26 PM EDT Height - - Body Mass Index 31.01 08/16/2024 9:15 AM EST documented in this encounter Progress Notes * Kaya Oh, JUAN LUIS - 04/06/2025 4:00 PM EDT Reason for Appointment: Patient [...] Constitutional: Appearance: Normal appearance. She is well-developed. Genitourinary: Vulva normal. Cardiovascular: Rate and Rhythm: Normal rate and [...] nursing note reviewed. Exam conducted with a press maintainer present. Vitals: Estimated body mass index is 31.01 kg/m?? as calculated from the following: Height as of 08/16/24: 5' 9 . Weight as of this encounter: 210 lb. BP: 122/70 Patient's last menstrual period was 07/08/2024. ASSESSMENT & PLAN ICD-10-CM 1. Third trimester ([facility]) Z34.93 POCT urinalysis dipstick manually resulted 2. 38 weeks gestation of ([facility]) Z3A.38 Return OB: Patient presents today for a routine obstetrics appointment. Patient is currently 38w6d . Patient states she is doing well [...] week for routine OB appointment. Documented by Kaya Oh LPN on behalf of: Fidencio Edouard DO documented in this encounter Plan of Treatment Upcoming Encounters Date Type Department Care Team (Late st Contact Info) Description 05/19/2025 11:10 AM EDT Visit [facility] [place] [facility] [address] [place] [address] Fidencio Edouard DO [address] [place] [address] documented as of this encounter Procedures Procedure Name Priority Date/Time Associated Diagnosis Comments POCT URINALYSIS DIPSTICK Routine 04/06/2025 1:23 PM EDT Third trimester ([facility]) documented in this encounter Results * (ABNORMAL) POCT urinalysis dipstick manually resulted (04/06/2025 1:23 PM EDT) Color, UA Yellow Clarity, UA Clear Glucose, UA Negative Negative - 2000(110) ++++ mg/dL Bilirubin, UA Moderate Negative - 4(70) +++ mg/dL Ketones, UA Negative Negative - 160(16) ++++ mg/dL Spec Grav, UA 1.010 1 - 1.03 Blood, UA Negative Negative - 50 Som/mcL pH, UA 8.5 5 - 9 Protein, UA Trace Negative - 2000(20) ++++ mg/dL Urobilinogen, UA 0.2 0.2 - 12 mg/dL Leukocytes, UA Moderate Negative - 500+++ Eric/mcL Nitrite, UA Negative Negative - Positive Urine 04/06/2025 1:23 PM EDT Fidencio Edouard DO POINT OF CARE TEST ENTER/EDIT OR DERABLES Final Result documented in this encounter Visit Diagnoses Diagnosis Third trimester ([facility]) state, incidental 38 weeks gestation of ([facility]) documented in this encounter Care Teams Primer Inserting Machine Operator Relationship Specialty Start Date End Date Nadeem Pierre MD [address] [place] [phone] PCP - General Family Medicine 02/09/25 documented as of this encounter
--- OUTSIDE RECORDS SUMMARY | 2025-04-18 09:19 | XMS_ITS | Encounter Summary ---
Author Organization [facility] Address [address] [place] [address] Care Team Providers Care Printed Circuit Boards Plasma Etcher Name Role Phone Nadeem Pierre MD Primary Care Provider [phone] Encounter Details Date Type Department Care Team (Late st Contact Info) Description 04/07/2025 Clinisync Result Encounter [facility] External Department Unsolicited Fidencio Edouard, DO [address], [place] [address] Social History Tobacco Use Types Packs/Day Years [...] Visit [facility] [address] [place] [address] Fidencio Edouard, DO [address], [place] [id number] documented as of this encounter Procedures Procedure Name Priority Date/Time Associated Diagnosis Comments [facility] CBC WITH PLATELET NO DIFFERENTIAL Routine 04/07/2025 5:30 AM EDT [facility] DRUG SCREEN RAPID (URINE) Routine 04/07/2025 5:15 AM EDT documented in this encounter Results * (ABNORMAL) [facility] CBC WITH PLATELET NO DIFFERENTIAL (04/07/2025 5:30 AM EDT) [facility] WBC 8.1 4.0 - 11.0 10 3/uL TBH TBH RBC 3.87(L) 4.20 - 5.40 10 6/uL TBH TBH HGB 13.2 12.0 - 16.0 g/dL TBH TBH HCT 37.1 36.0 - 48.0 % TBH TBH MCV 95.9 81.0 - 99.0 fL TBH TBH MCH 34.1(H) 26.7 - 34.0 pg TBH TBH MCHC 35.6(H) 29.9 - 35.2 g/dL TBH TBH RDW 12.0 11.0 - 15.0 % TBH TBH PLT 170 150 - 450 10 3/uL TBH TBH MPV 11.6 9.5 - 13.5 fL TBH 04/07/2025 5:30 AM EDT 04/07/2025 6:23 AM EDT Narrative [facility] - 04/07/2025 6:32 AM EDT us Fidencio Javan DO [facility] Final Result [facility] * TBH DRUG SCREEN RAPID (URINE) (04/07/2025 5:15 AM EDT) CANNABINOID SCREEN URINE NEGATIVE NEGATIVE TBH PHENCYCLIDINE SCREEN URINE NEGATIVE NEGATIVE TBH COCAINE SCREEN URINE NEGATIVE NEGATIVE TBH METHAMPHETAMINES SCREEN URINE NEGATIVE NEGATIVE TBH OPIATE SCREEN URINE NEGATIVE NEGATIVE TBH AMPHETAMINE SCREEN URINE NEGATIVE NEGATIVE TBH BENZODIAZEPINES SCREEN URINE NEGATIVE NEGATIVE TBH TRICYCLIC ANTIDEPRESSANT URINE NEGATIVE NEGATIVE TBH METHADONE SCREEN URINE NEGATIVE NEGATIVE TBH BARBITURATES SCREEN URINE NEGATIVE NEGATIVE TBH OXYCODONE SCREEN URINE NEGATIVE NEGATIVE TBH BUPRENORPHINE SCREEN URINE NEGATIVE NEGATIVE TBH Comment: DRUG CLASS TEST SYSTEM CUT-OFF CONCENTRATIONS ARE FOLLOWS: AMP (Amphetamine): 500 ng/mL BAR (Barbiturates): 200 ng/mL BZO (Benzodiazepines): 150 ng/mL BUP (Buprenorphine): 10 ng/mL KRYS (Cocaine): 150 ng/mL mAMP (Methamphetamine): 500 ng/mL MTD (Methadone): 200 ng/mL OPI (Opiates): 100 ng/mL OXY (Oxycodone): 100 ng/mL PCP (Phencyclidine): 25 ng/mL THC (Cannabinoids): 50 ng/mL TCA (Trycyclic Antidepressants): 300 ng/mL 04/07/2025 5:15 AM EDT 04/07/2025 6:23 AM EDT Narrative CLINISYNC - 04/07/2025 6:58 AM EDT Fidencio Hayeso DO [facility] documented in this encounter Visit Diagnoses Not on filedocumented in this encounter Care Teams Printed Circuit Boards Plasma Etcher Relationship Specialty Start Date End Date Nadeem Pierre MD [address] [place] [address] PCP - General Family Medicine 02/09/25 documented as of this encounter
--- OUTSIDE RECORDS SUMMARY | 2025-04-18 09:19 | XMS_ITS | Encounter Summary ---
Author Organization [facility] Address [address] [facility] [place] [address] Care Team Providers Care Sea Captain Name Role Phone Nadeem Pierre MD Primary Care Provider [phone] Encounter Details Date Type Department Care Team (Late st Contact Info) Description 04/08/2025 Clinisync Result Encounter [facility] External Department Unsolicited Fidencio Edouard, DO [address], [place] [address] Social History Tobacco Use Types Packs/Day Years [...] Visit [facility] [address] [place] [address] Fidencio Edouard, DO [address], [place] [phone] documented as of this encounter Procedures Procedure Name Priority Date/Time Associated Diagnosis Comments ALL CBC WITH AUTO DIFF Routine 04/08/2025 6:22 AM EDT documented in this encounter Results * (ABNORMAL) ALL CBC WITH AUTO DIFF (04/08/2025 6:22 AM EDT) TBH WBC 11.6(H) 4.0 - 11.0 10 3/uL TBH TBH RBC 3.44(L) 4.20 - 5.40 10 6/uL TBH TBH HGB 11.8(L) 12.0 - 16.0 g/dL TBH TBH HCT 33.8(L) 36.0 - 48.0 % TBH TBH MCV 98.3 81.0 - 99.0 fL TBH TBH MCH 34.3(H) 26.7 - 34.0 pg TBH TBH MCHC 34.9 29.9 - 35.2 g/dL TBH TBH RDW 12.2 11.0 - 15.0 % TBH TBH PLT 142(L) 150 - 450 10 3/uL TBH TBH MPV 11.3 9.5 - 13.5 fL TBH NEUTROPHILS PERCENT AUTO 78.8(H) 43.0 - 75.0 % TBH LYMPHOCYTES PERCENT AUTO 12.9(L) 20.5 - 60.0 % TBH MONOCYTES PERCENT AUTO 7.1 1.7 - 12.0 % TBH TBH EO % 0.5(L) 0.9 - 7.0 % TBH BASOPHILS PERCENT AUTO 0.2 0.2 - 2.0 % TBH IMMATURE GRANULOCYTES PCT AUTO 0.5 0.0 - 0.5 % TBH NEUTROPHILS ABSOLUTE AUTO 9.2(H) 1.4 - 6.5 10 3/uL TBH LYMPHOCYTES ABSOLUTE AUTO 1.5 1.2 - 3.8 10 3/uL TBH MONOCYTES ABSOLUTE AUTO 0.8 0.3 - 0.8 10 3/uL TBH TBH EO # 0.1 0.0 - 0.7 10 3/uL TBH BASOPHILS ABSOLUTE AUTO 0.0 0.0 - 0.1 10 3/uL TBH IMMATURE GRANULOCYTES ABS AUTO 0.06(H) 0.00 - 0.03 10 3/uL TBH 04/08/2025 6:22 AM EDT 04/08/2025 6:28 AM EDT Narrative CLINISYNC - 04/08/2025 6:35 AM EDT us Fidencio Javan DO CLINISYNC Final Result [facility] documented in this encounter Visit Diagnoses Not on filedocumented in this encounter Care Teams Sea Captain Relationship Specialty Start Date End Date Nadeem Pierre MD [address] [place] [address] PCP - General Family Medicine 02/09/25 documented as of this encounter
--- OUTSIDE RECORDS SUMMARY | 2025-04-18 09:19 | XMS_ITS | Encounter Summary ---
Author Organization [facility] Address [address] [facility] [place] [address] Care Team Providers Care Green End Man Name Role Phone Nadeem Pierre MD Primary Care Provider [phone] Encounter Details Date Type Department Care Team (Late st Contact Info) Description 04/06/2025 Abstract [facility] [address] [place] [address] Fidencio Edouard DO [address], [place] [id number] Social History Tobacco Use Types Packs/Day Years [...] Info) Description 05/19/2025 11:10 AM EDT Visit [facility] [address] [place] [address] Fidencio Edouard DO [address] [place] [address] [place] [address] documented as of this encounter Visit Diagnoses Not on filedocumented in this encounter Care Teams Green End Man Relationship Specialty Start Date End Date Nadeem Pierre MD [address] [facility] [place] [address] PCP - General Family Medicine 02/09/25 documented as of this encounter
--- OUTSIDE RECORDS SUMMARY | 2025-04-18 09:19 | XMS_ITS | Encounter Summary ---
Author Organization [facility] Address [address] [facility] [place] [address] Care Team Providers Care Sugar Cane Planting Equipment Operator Name Role Phone Nadeem Pierre MD Primary Care Provider [phone] Nadeem Pierre MD Primary Care Provider [phone] Encounter Details Date Type Department Care Team (Late st Contact Info) Description 10/11/2024 Abstract [facility] [address] [place] [address] Fidencio Edouard DO [address] [facility] [place] [address] Social History Tobacco Use Types Packs/Day Years [...] AM EDT Visit [facility] [address] [facility] [place] [address] Fidencio Edouard, [address] [place], [place] [address] documented as of this encounter Visit Diagnoses Not on filedocumented in this encounter Care Teams Sugar Cane Planting Equipment Operator Relationship Specialty Start Date End Date Nadeem Pierre MD PCP - General Family Medicine 08/11/23 02/08/25 Nadeem Pierre MD [address] [place], [place] [address], [place] [address] PCP - General Family Medicine 02/09/25 documented as of this encounter
--- OUTSIDE RECORDS SUMMARY | 2025-04-18 09:19 | XMS_ITS | Encounter Summary ---
Author Organization [facility] Address [address] [facility] [place] [address] Care Team Providers Care Human Services Supervisor Name Role Phone Nadeem Pierre MD Primary Care Provider [phone] Encounter Details Date Type Department Care Team (Late st Contact Info) Description 04/08/2025 Abstract [facility] [address] [place] [address] Fidencio Edouard DO [address], [facility] Social History Tobacco Use Types Packs/Day Years [...] AM EDT Visit [facility] [address] [place] [address] Fidencio Edouard DO [address] [place] [address] [place] [address] documented as of this encounter Visit Diagnoses Not on filedocumented in this encounter Care Teams Human Services Supervisor Relationship Specialty Start Date End Date Nadeem Pierre MD [address] [facility] [place] [address] PCP - General Family Medicine 02/09/25 documented as of this encounter
--- OUTSIDE RECORDS SUMMARY | 2025-04-18 09:19 | XMS_ITS | Encounter Summary ---
Author Organization [facility] Address [address] [facility] [place] [address] Care Team Providers Care Accounting Associate Name Role Phone Nadeem Pierre MD Primary Care Provider [phone] Nadeem Pierre MD Primary Care Provider [phone] Encounter Details Date Type Department Care Team (Late st Contact Info) Description 10/11/2024 Abstract [facility] [address] [place] [address] Fidencio Edouard DO [address] [facility] [place] [address] Social History Tobacco Use Types Packs/Day Years [...] AM EDT Visit [facility] [address] [facility] [place] [place] [address] Fidencio Edouard, [address] [place], [place] [address] documented as of this encounter Visit Diagnoses Not on filedocumented in this encounter Care Teams Accounting Associate Relationship Specialty Start Date End Date Nadeem Pierre MD PCP - General Family Medicine 08/11/23 02/08/25 Nadeem Pierre MD [address] [place], [place] [address] [address] PCP - General Family Medicine 02/09/25 documented as of this encounter
--- OUTSIDE RECORDS SUMMARY | 2025-04-18 09:19 | XMS_ITS | Encounter Summary ---
Author Organization [facility] Address [address] [facility] [place] [address] Care Team Providers Care Dining Car Hop Name Role Phone Nadeem Pierre MD Primary Care Provider [phone] Encounter Details Date Type Department Care Team (Late st Contact Info) Description 04/06/2025 Bamboo flowsheet [facility] [address] [place] [address] Fidencio Edouard DO [address], [facility] Social History Tobacco Use Types Packs/Day Years [...] 05/19/2025 11:10 AM EDT Visit [facility] [address] [place] [address] Fidencio Edouard DO [address] [facility] [address] documented as of this encounter Visit Diagnoses Not on filedocumented in this encounter Care Teams Dining Car Hop Relationship Specialty Start Date End Date Nadeem Pierre MD [address] [facility] [address] PCP - General Family Medicine 02/09/25 documented as of this encounter
--- OUTSIDE RECORDS SUMMARY | 2025-04-18 09:19 | XMS_ITS | Patient Health Record ---
Author Organization [facility] [place] Address [address] [place] [address] Care Team Providers Care Seam Hammerer Name Role Phone Colt Pierre Primary Care Provider [phone] Allergies No Known Allergies Results Component Value Reference Range Notes CBC AUTO DIFF Reviewed date:10/02/2024 11:02:44 AM Interpretation: Performing Lab: Notes/Report: [facility] , White Blood Count 7.4 4.0-11.0 10 [...] 3/uL Performing Lab: see note ML - [facility] LB DRUG SCREEN RAPID (URINE) Reviewed date:10/02/2024 11:02:44 AM Interpretation: Performing Lab: Notes/Report: [facility] , Cannabinoid Screen Urine NEGATIVE NEGATIVE Phencyclidine [...] ng/mL Performing Lab: see note ML - [facility] LB RUBELLA AB IGG Reviewed date:10/02/2024 11:02:44 AM Interpretation: Performing Lab: Notes/Report: [facility] , Rubella Antibodies, IgG 6.47 Immune > 0.99 index Non-immune <0.90 Equivocal 0.90 - 0.99 Immune >0.99 Performed at: [address] [id number] Straightedge Worker: Ramon Herrera PhD, Phone: [phone] Performing Lab: see note - [facility] LB HIV Ab/p24 Ag with Reflex Reviewed date:10/02/2024 11:02:44 AM Interpretation: Performing Lab: Notes/Report: [facility] , HIV Ab/p24 Ag Screen Non Reactive Non Reactive HIV-1/HIV-2 antibodies and HIV-1 p24 antigen were NOT detected. There is no laboratory evidence of HIV infection. HIV Negative Performed at: [address] [id number] Straightedge Worker: Ramon Herrera PhD, Phone: [phone] Performing Lab: see note [facility] HCV Antibody RFX to Quant PC R Reviewed date:10/02/2024 11:02:44 AM Interpretation: Performing Lab: Notes/Report: [facility] , HCV Ab Non Reactive Non Reactive Interpretation: Comment . Not infected with HCV unless early or acute infection is suspected (which may be delayed in an immunocompromised individual), or other evidence exists to indicate HCV infection. Performed at: [address] [id number] Straightedge Worker: Ramon Herrera PhD, Phone: [phone] Performing Lab: see note [facility] LB Box Test Reviewed date:10/02/2024 11:02:44 AM Interpretation: Performing Lab: Notes/Report: [facility] , BOX Test Sent Out [employer] BOX Test Reference Lab UNITY BOX Test Date Sent 10/01/2024 Performing Lab: see note [facility] LB IGP,Aptima HPV,Age Gdln Reviewed date:11/22/2024 08:58:20 PM Interpretation: Performing Lab: Notes/Report: SPATULA-ALONE CERVIX [facility] , Age Gdln ACOG Testing Note . TESTS RESULT FLAG UNITS REF RANGE LAB Clinician Provided Cytology Information Source.............Cerv ix Other..............Preg nant No. of containers..01 ThinPrep Vial Age Algo ACOG Sunita... 30-65 FLAG LEGEND: L-Low Normal,H-High Normal,LL-Alert Low,HH-Alert High <-Panic Low,>-Panic High,A-Abnormal,AA-Crit ical Abnormal Performed at: 01 =[facility] [address] [place] [address] Senait Shook MD, IGP, Aptima HPV, rfx 16/18,45 Note . TESTS RESULT FLAG UNITS REF RANGE LAB DIAGNOSIS: 02 NEGATIVE FOR INTRAEPITHELIAL LESION OR MALIGNANCY. THIS SPECIMEN WAS RESCREENED PART OF OUR PAPER CONTROL CLERK PROGRAM. Specimen adequacy: 02 Satisfactory for evaluation. No endocervical component is identified. An endocervical component is not commonly seen in the patient. Performed by: Lorraine Sorenson [employer] Consultant QC reviewed by: Lorraine Leung [employer] Consultant ([facility]) . 02 Note: Note 02 The Pap [...] Low,>-Panic High,A-Abnormal,AA-Crit ical Abnormal Performed at: [address] [address] Senait Shook MD, HPV Aptima Negative Negative This nucleic acid amplification test detects fourteen high- risk HPV types (16,18,31,33,35,39,45,5 1,52,56,58,59,66,68) without differentiation. Performed at: =[facility] [id number] Straightedge Worker: Senait Shook MD, Phone: [phone] Performed at: [facility] [address] [id number] Straightedge Worker: Senait Shook MD, Phone: [phone] Performing Lab: see note - [facility] LB CBC AUTO DIFF Reviewed date:01/18/2025 12:19:55 PM Interpretation: Performing Lab: Notes/Report: [facility] , White Blood Count 6.4 4.0-11.0 10 [...] 0.00-0.03 10 3/uL Performing Lab: see note - [facility] LB UA (CLEAN or CATCH) ARTIFICIAL LOG MACHINE OPERATOR or M ICRO IF IND. Reviewed date:02/02/2025 06:36:27 PM Interpretation: Performing Lab: Notes/Report: [facility] , Color Urine LT. YELLOW YELLOW Clarity Urine CLEAR CLEAR Specific [place] Urine 1.010 1.005-1.025 pH Urine 7.5 5.0-9.0 Protein Urine NEGATIVE NEG/TRACE mg/dL Glucose Urine UA NEGATIVE NEGATIVE mg/dL Bilirubin Urine NEGATIVE NEGATIVE Ketones Urine NEGATIVE NEGATIVE mg/dL Blood Urine NEGATIVE NEGATIVE Nitrite Urine NEGATIVE NEGATIVE Urobilinogen Urine 1.0 0.2-1.0 EU/dL Leukocyte Esterase Urine MODERATE NEGATIVE Urine Microscopic Indicated YES Performing Lab: see note ML - [facility] LB Strep Gp B Culture+Rflx Reviewed date:03/20/2025 03:11:22 PM Interpretation: Performing Lab: Notes/Report: [facility] , Strep Gp B Culture+Rflx See Below For Report Strep Gp B Culture+Rflx Strep Gp B Culture+Rflx Negative Strep Gp B Culture+Rflx Strep Gp B Culture+Rflx Centers for Dise ase Control and Prevention (CDC) and Strep Gp B Culture+Rflx Strep Gp B Culture+Rflx [employer] Strep [...] Culture+Rflx Strep Gp B Culture+Rflx Performed at: [facility] Strep Gp B Culture+Rflx Strep Gp B Culture+Rflx [address] [place], [place] [id number] Strep Gp B Culture+Rflx Strep Gp B Culture+Rflx Straightedge Worker: Clarice Herrera PhD, Phone: [phone] Strep Gp B Culture+Rflx Performing Lab: see note LC - [facility] LB SEE REPORT - Warehouse Handler Id information not found for OBX-specific moving picture producer legend US OB amniotic fluid vol Reviewed date:02/03/2025 08:42:48 PM Interpretation: Performing Lab: Notes/Report: Source Facility: [place] [address] [place] [address] Ultrasound Report Signed with Yonny Patient: SIDRA SPANN MR#: [id number] : 1995 Acct:[id number] Age/Sex: 29 / F ADM Date: Loc: [facility] 252-[address]: Giulia Edouard D.O. Ordering Physician: Xi Thomas M.D. Date of Service: 02/02/25 Procedure(s): US OB amniotic fluid vol Accession Number(s): [id number] cc: Xi Thomas M.D.; Nadeem Pierre M.D. ADDENDUM [place] [address] This is an addendum An intrauterine is [...] Leggett M.D. 02/03/2025 1:23 PM Dictation Location: [place] [address] Patient N Electronically authenticated by: [id number] Y Date: 02/03/2025 13:23 deyanira: SIDRA SPANN MRN: [id number] date: 1995 Sex: F Assigned Patient Location: [facility] Current Patient Location: Accession/Order Number: [id number] Exam Date: 02/03/2025 13:23 Report Date: 02/03/2025 13:23 At the request of: XI THOMAS MD Procedure: US OB cervical length [address] [id number] Patient Name: SIDRA SPANN MRN: [id number] date: 1995 Sex: F Assigned Patient Location: [facility] Current Patient Location: [facility] Accession/Order Number: [id number] Exam Date: 02/02/2025 14:22 Report Date: 02/02/2025 [...] Leggett M.D. 02/02/2025 2:25 PM Dictation Location: [place] [address] Electronically authenticated by: [id number] Y Date: 02/02/2025 14:25 Addendum Dictated By: Darrion Leggett M.D. Addendum Signed By: 02/03/25 1 326 Addendum Cosigned By: DD/ TD/TT: / [address] [address] Patient Name: SIDRA SPANN MRN: [id number] date: 1995 Sex: F Assigned Patient Location: [facility] Current Patient Location: [facility] Accession/Order Number: [id number] Exam Date: 02/02/2025 14:22 Report Date: 02/02/2025 [...] Leggett M.D. 02/02/2025 2:25 PM Dictation Location: [place] [address] Electronically authenticated by: [id number] Y Date: 02/02/2025 14:25 Dictated By: Darrion Leggett M.D. Signed By: 02/02/251426 DD/ 24 TD/TT: Well Cleaner: [place] [address] Ultrasound Report Signed with Yonny Patient: SIDRA SPANN MR#: [id number] : 1995 Acct:[id number] Age/Sex: 29 / F ADM Date: Loc: [facility] 252-[address]: Giulia Edouard D.O. Ordering Physician: Xi Thomas M.D. Date of Service: 02/02/25 Procedure(s): US OB amniotic fluid vol Accession Number(s): [id number] cc: Xi Thomas M.D.; Nadeem Pierre M.D. ADDENDUM [place] [id number] This is an addendum An intrauterine is [...] Leggett M.D. 02/03/2025 1:23 PM Dictation Location: [place] Patient N Electronically authenticated by: [id number] Y Date: 02/03/2025 13:23 deyanira: SIDRA SPANN MRN: [id number] date: 1995 Sex: F Assigned Patient Location: [facility] Current Patient Location: Accession/Order Number: [id number] Exam Date: 02/03/2025 13:23 Report Date: 02/03/2025 13:23 At the request of: XI THOMAS MD Procedure: US OB cervical length [place] [id number] Patient Name: SIDRA SPANN MRN: [id number] date: 1995 Sex: F Assigned Patient Location: [facility] Current Patient Location: [facility] Accession/Order Number: [id number] Exam Date: 02/02/2025 14:22 Report Date: 02/02/2025 [...] Leggett M.D. 02/02/2025 2:25 PM Dictation Location: [place] [address] Electronically authenticated by: [id number] Y Date: 02/02/2025 14:25 Addendum Dictated By : Darrion Leggett M.D. Addendum Signed By: 02/03/25 1 326 Addendum Cosigned By: DD/ TD/TT: / [place] [id number] Patient Name: SIDRA SPANN MRN: [id number] date: 1995 Sex: F Assigned Patient Location: [facility] Current Patient Location: [facility] Accession/Order Number: [id number] Exam Date: 02/02/2025 14:22 Report Date: 02/02/2025 [...] Leggett M.D. 02/02/2025 2:25 PM Dictation Location: [place] [address] Electronically authenticated by: [id number] Y Date: 02/02/2025 14:25 Dictated By: Darrion Leggett M.D. Signed By: 02/02/25 1427 DD/ 24 TD/TT: Well Cleaner: US OB cervical length Reviewed date:02/03/2025 08:42:48 PM Interpretation: Performing Lab: Notes/Report: Source Facility: [place] [address] Ultrasound Report Signed with Yonny Patient: SIDRA SPANN MR#: [id number] : 1995 Acct:[id number] Age/Sex: 29 / F ADM Date: Loc: [place] [address]: Giulia Edouard D.O. Ordering Physician: Xi Thomas M.D. Date of Service: 02/02/25 Procedure(s): US OB cervical length Accession Number(s): [id number] cc: Xi Thomas M.D.; Nadeem Pierre M.D. ADDENDUM [place] [address] This is an addendum An intrauterine is [...] Leggett M.D. 02/03/2025 1:23 PM Dictation Location: [place] [address] Patient N Electronically authenticated by: [id number] Y Date: 02/03/2025 13:23 deyanira: SIDRA SPANN MRN: [facility]:[id number] date: 1995 Sex: F Assigned Patient Location: [facility] Current Patient Location: Accession/Order Number: [id number] Exam Date: 02/03/2025 13:23 Report Date: 02/03/2025 13:23 At the request of: XI THOMAS MD Procedure: US OB cervical length [place] [address] Patient Name: SIDRA SPANN MRN: [facility]:[id number] date: 1995 Sex: F Assigned Patient Location: [facility] Current Patient Location: [facility] Accession/Order Number: [id number] Exam Date: 02/02/2025 14:22 Report Date: 02/02/2025 [...] Leggett M.D. 02/02/2025 2:25 PM Dictation Location: [facility] Electronically authenticated by: [id number] Y Date: 02/02/2025 14:25 Addendum Dictated By: Darrion Leggett M.D. Addendum Signed By: 02/03/25 326 Addendum Cosigned By: DD/ TD/TT: / [place] [address] Patient Name: SIDRA SPANN MRN: [id number] date: 1995 Sex: F Assigned Patient Location: [facility] Current Patient Location: [facility] Accession/Order Number: [id number] Exam Date: 02/02/2025 14:22 Report Date: 02/02/2025 [...] Leggett M.D. 02/02/2025 2:25 PM Dictation Location: [facility] Electronically authenticated by: [id number] Y Date: 02/02/2025 14:25 Dictated By: Darrion Leggett M.D. Signed By: 02/02/25 1428 DD/ 24 TD/TT: Well Cleaner: [place] [address] Ultrasound Report Signed with Addenda Patient: SIDRA SPANN MR#: [id number] : 1995 Acct:[id number] Age/Sex: 29 / F ADM Date: Loc: [facility] 252-[address]: Giulia Edouard D.O. Ordering Physician: Xi Thomas M.D. Date of Service: 02/02/25 Procedure(s): US OB cervical length Accession Number(s): [id number] cc: Xi Thomas M.D.; Nadeem Pierre M.D. ADDENDUM The [place] [address] This is an addendum An intrauterine is [...] Leggett M.D. 02/03/2025 1:23 PM Dictation Location: [place] [address] Patient N Electronically authenticated by: [id number] Y Date: 02/03/2025 13:23 deyanira: SIDRA SPANN MRN: [id number] date: 1995 Sex: F Assigned Patient Location: [facility] Current Patient Location: Accession/Order Number: [id number] Exam Date: 02/03/2025 13:23 Report Date: 02/03/2025 13:23 At the request of: XI THOMAS MD Procedure: US OB cervical length [address] [id number] Patient Name: SIDRA SPANN MRN: [id number] date: 1995 Sex: F Assigned Patient Location: [facility] Current Patient Location: [facility] Accession/Order Number: [id number] Exam Date: 02/02/2025 14:22 Report Date: 02/02/2025 [...] Leggett M.D. 02/02/2025 2:25 PM Dictation Location: [place] [address] Electronically authenticated by: [id number] Y Date: 02/02/2025 14:25 Addendum Dictated By : Darrino Leggett M.D. Addendum Signed By: 02/03/25 1 326 Addendum Cosigned By: DD/ TD/TT: / [address] [address] Patient Name: SIDRA SPANN MRN: [id number] date: 1995 Sex: F Assigned Patient Location: [facility] Current Patient Location: [facility] Accession/Order Number: [id number] Exam Date: 02/02/2025 14:22 Report Date: 02/02/2025 [...] Leggett M.D. 02/02/2025 2:25 PM Dictation Location: [facility] Electronically authenticated by: [id number] Y Date: 02/02/2025 14:25 Dictated By: Darrion Leggett M.D. Signed By: 02/02/25 1428 DD/ 1425 TD/TT: Well Cleaner: Urine Culture, Routine Reviewed date:02/06/2025 09:41:58 PM Interpretation: Performing Lab: Notes/Report: [facility] , Urine Culture, Routine See Below For Report Urine Culture, Routine Urine Culture, Routine No growth Urine Culture, Routine Urine Culture, Routine Performed at: - [facility] [place] Urine Culture, Routine Urine Culture, Routine [address] [place] [phone] Urine Culture, Routine Urine Culture, Routine Straightedge Worker: Bennett Herrera PhD, Phone: [phone] Urine Culture, Routine Performing Lab: see note LC - [facility] LB SEE REPORT - Warehouse Handler Id information not found for OBX-specific moving picture producer legend [employer]* Reviewed date:02/02/2025 06:36:28 PM Interpretation: Performing Lab: Notes/Report: [facility] , [employer] NEGATIVE NEGATIVE Performing Lab: see note ML - [facility] LB URINE MICROSCOPIC ONLY Reviewed date:02/02/2025 06:36:27 PM Interpretation: Performing Lab: Notes/Report: [facility] , WBC Urine 2-5 NONE SEEN #/HPF RBC Urine 0-2 0-2 #/HPF Bacteria Urine MODERATE NONE SEEN #/HPF Mucus Urine NONE SEEN NONE SEEN Squamous Epithelial Cell Urine MODERATE NONE/RARE #/LPF Crystals Seen? None Seen None Seen #/HPF Cast Seen? NONE SEEN NONE SEEN #/LPF Urine Culture Indicated YES-LC Performing Lab: see note ML - [facility] LB Glucose 1 Hour Reviewed date:01/18/2025 12:19:55 PM Interpretation: Performing Lab: Notes/Report: [facility] , Glucose 1 Hour 80 <130 mg/dL Performing Lab: see note - [facility] LB AFP, Serum, Open Spina Bifid a Reviewed date:12/12/2024 09:38:49 AM Interpretation: Performing Lab: Notes/Report: N N LMP [id number] 16 N 1 186 N N [...] Customer Services to discuss available options. The [employer] recommends amniocentesis be offered to women age 35 and older. Comment: Comment . Claudia Vega, Ph.D., [facility] Director References: Available Upon Request. Multiples Of Median Cutoffs For AFP Elevations Lim 2.5 Black 2.8 IDD 2.0 Twins 4.5 Abbreviation Definitions IDD - Insulin Dep Diabetes OSBR - Open Spina Bifida Risk For further inquiries contact [facility] at [phone]. This test was developed and its performance characteristics determined by [employer]. It has not been cleared or approved by the Food and Drug Administration. Performed at: [facility] [address] [facility], [place], [place] [id number] Straightedge Worker: Janine Melissa [facility], Phone: [phone] Performing Lab: see note [facility] LB Urine Culture, Routine Reviewed date:10/03/2024 09:39:08 AM Interpretation: Performing Lab: Notes/Report: [facility] , Urine Culture, Routine See Below For Report Urine Culture, Routine Urine Culture, Routine Mixed urogenital janet Urine Culture, Routine Urine Culture, Routine 10,000-25,000 col dara forming units per mL Urine Culture, Routine Urine Culture, Routine Performed at: [facility] Urine Culture, Routine Urine Culture, Routine [address] [place] [phone] Urine Culture, Routine Urine Culture, Routine Straightedge Worker: Bennett Herrera PhD, Phone: [phone] Urine Culture, Routine Performing Lab: see note [facility] SEE REPORT - Warehouse Handler Id information not found for OBX-specific moving picture producer legend HBsAg Screen Reviewed date:10/03/2024 09:39:08 AM Interpretation: Performing Lab: Notes/Report: [facility] , HBsAg Screen Negative Negative Performed at: [address] [id number] Straightedge Worker: Ramon Herrera PhD, Phone: [phone] Performing Lab: see note [facility] Rapid Plasma Reagin, Quant Reviewed date:10/03/2024 09:39:08 [...] utilized, such as Treponema pallidum (Syphilis) Screening Keyser (938725) or Rapid Plasma Reagin (RPR) Test With Reflex to Quantitative RPR and Confirmatory Treponema pallidum Antibodies (900355). Performed at: - [address] [id number] Straightedge Worker: Ramon Herrera PhD, Phone: [phone] Performing Lab: see note - [facility] LB Type and Screen Reviewed date:10/02/2024 11:02:44 AM Interpretation: Performing Lab: Notes/Report: [facility] , Blood Type A Positive Antibody Screen NEGATIVE GLYCOHEMOGLOBIN A1C Reviewed date:10/02/2024 11:02:44 AM Interpretation: Performing Lab: Notes/Report: [facility] , Glycohemoglobin A1C 4.7 4.5-6.2 % ADA RECOMMENDED LIMIT 4.0 - 6.0 ADA THERAPEUTIC TARGET < 7.0 ACTION SUGGESTED > 7.0 Estimated Average Glucose 88 Performing Lab: see note - [facility] LB US OB transvaginal Reviewed date:11/11/2024 02:42:48 PM Interpretation: Performing Lab: Notes/Report: Source Facility: [place] [address] Ultrasound Report Signed Patient: SIDRA SPANN MR#: [id number] : 1995 Acct:[id number] Age/Sex: 28 / F ADM Date: 09/10/24 Loc: [facility] Attending Dr: Giulia Edouard D.O. Ordering Physician: Giulia Edouard D.O. Date of Service: 09/10/24 Procedure(s): US OB transvaginal Accession Number(s): [id number] cc: Giulia Edouard D.O.; Nadeem Pierre M.D. [place] [address] Patient Name: SIDRA SPANN MRN: [id number] date: 1995 Sex: F Assigned Patient Location: [facility] Current Patient Location: LAB Accession/Order Number: [id number] Exam Date: 09/10/2024 08:06 Report Date: 09/10/2024 [...] Signed By: 11/11/24 1227 DD/ 0947 TD/TT: Well Cleaner: [place] [address] Ultrasound Report Signed Patient: SIDRA SPANN MR#: [id number] : 1995 Acct:[id number] Age/Sex: 28 / F ADM Date: 09/10/24 Loc: [facility] Attending Dr: Giulia Edouard D.O. Ordering Physician: Giulia Edouard D.O. Date of Service: 09/10/24 Procedure(s): US OB transvaginal Accession Number(s): [id number] cc: Giulia Edouard D.O. ; Nadeem Pierre M.D. [place] [id number] Patient Name: SIDRA SPANN MRN: [id number] date: 1995 Sex: F Assigned Patient Location: [facility] Current Patient Location: LAB Accession/Order Number: [id number] Exam Date: 08:06 Report Date: 09/10/2024 09:47 [...] Signed By: 11/11/24 1227 DD/ 0947 TD/TT: Well Cleaner: CBC AUTO DIFF Reviewed date:04/09/2025 02:39:33 PM Interpretation: Performing Lab: Notes/Report: [facility] , White Blood Count 11.6 4.0-11.0 10 [...] Performing Lab: see note ML - [facility] LB Type and Screen Reviewed date:04/07/2025 04:15:26 PM Interpretation: Performing Lab: Notes/Report: [facility] , Blood Type A Positive Antibody Screen NEGATIVE CBC no Diff (Hemogram) Reviewed date:04/07/2025 04:15:26 PM Interpretation: Performing Lab: Notes/Report: [facility] , White Blood Count 8.1 4.0-11.0 10 [...] fL Performing Lab: see note ML - [facility] LB DRUG SCREEN RAPID (URINE) Reviewed date:04/07/2025 04:15:25 PM Interpretation: Performing Lab: Notes/Report: [facility] , Cannabinoid Screen Urine NEGATIVE NEGATIVE Phencyclidine [...] Performing Lab: see note ML - [facility] LB Reason For Referral No Information Medications [...] ACCESS PPO PLUS LOCAL PLAN [address] [place] [address] [id number] Sidra Spann Self - patient is the insured 3
--- OUTSIDE RECORDS SUMMARY | 2025-04-18 09:19 | XMS_ITS | Encounter Summary ---
Author Organization [facility] Address [address] [place] [address] Care Team Providers Care Locomotive Boilermaker Name Role Phone Nadeem Pierre MD Primary Care Provider [phone] Encounter Details Date Type Department Care Team (Late st Contact Info) Description 04/07/2025 Abstract [facility] [address] [place] [address] Fidencio Edouard DO [address], [facility] Social History Tobacco Use Types Packs/Day Years [...] AM EDT Visit [facility] Angel [facility] [address] [place] [address] Fidencio Edouard DO [address] [place] [address] [place] [address] documented as of this encounter Visit Diagnoses Not on filedocumented in this encounter Care Teams Locomotive Boilermaker Relationship Specialty Start Date End Date Nadeem Pierre MD [address] [facility] [place] [address] PCP - General Family Medicine 02/09/25 documented as of this encounter
--- OUTSIDE RECORDS SUMMARY | 2025-04-18 09:20 | XMS_ITS | Clinical Summary ---
Author Organization [facility] Address [address] [place] [address] Care Team Providers Care Electronic Gluing Machine Operator Name Role Phone Nadeem Pierre MD Primary Care Provider [phone] Allergies No known active allergies Medications Vit-Fe [...] MG EC tabletIndication s:Heartburn during , antepartum ([facility]) Take 1 tablet (20 mg) [...] tablets Day 6: 1 tablet 21 tablet Active Active Problems Problem Noted Date Diagnosed Date Acute sinusitis 09/24/2024 Estimated Date of Delivery Comme nts Yes 04/14/2025 Based on last me nstrual period of 07/08/2024 Encounters Date Type Department Care Team Description 04/08/2025 Abstract [facility] [place] [address] Fidencio Edouard, 04/08/2025 Clinisync Result Encounter NOMS External Department Unsolicited Fidencio Edouard, DO 04/07/2025 Abstract [facility] [place] [address] Fidencio Edouard, DO 04/07/2025 Clinisync Result Encounter NOMS External Department Unsolicited Fidencio Edouard, DO 04/06/2025 4:00 PM EDT Routine [facility] [place] [address] Fidencio Edouard, DO Third trimester ([facility]); 38 weeks gestation of ([facility]) 04/06/2025 Abstract N[facility] [place] [address] Fidencio Edouard, DO 04/06/2025 Bamboo flowsheet [facility] [place] [address] Fidencio Edouard, DO 03/30/2025 4:00 PM [place] [address] Fidencio Edouard, DO Third trimester ([facility]); 37 weeks gestation of ([facility]) 03/30/2025 Bamboo flowsheet [facility] [place] [place] [address] Fidencio Edouard, 03/23/2025 11:00 AM EDT Routine [facility] [address] [place] [address] Fidencio Edouard, Third trimester ([facility]); 36 weeks gestation of ([facility]) 03/16/2025 10:00 AM EDT Routine [facility] [address] [place] [address] Margret Mcgovern PA Third trimester ([facility]); 36 weeks gestation of ([facility]) 03/16/2025 Bamboo flowsheet [facility] [address] [place] [address] Margret Mcgovern PA 03/11/2025 Abstract [facility] [address] [place] [address] Fidencio Edouard, 03/09/2025 4:00 PM EDT Routine [facility] [address] [place] [address] Fidencio Edouard, 34 weeks gestation of ([facility]); Third trimester ([facility]) 02/24/2025 Abstract [facility] [address] [place] [address] Fidencio Edouard, 02/23/2025 4:00 PM EDT Routine [facility] [address] [place] [address] Fidencio Edouard, Third trimester ([facility]); 32 weeks gestation of ([facility]) 02/23/2025 Bamboo flowsheet [facility] [address] [place] [address] Fidencio Edouard, 02/22/2025 Abstract [facility] [address] [place] [address] Fidencio Edouard, 02/16/2025 11:00 AM EDT Ancillary Procedure [facility] [address] [place] [address] Vaginal discharge during in third trimester ([facility]) 02/09/2025 11:00 AM EDT Routine [facility] [address] [place] [address] Fidencio Edouard, Third trimester ([facility]); 30 weeks gestation of ([facility]); Vaginal discharge during in third trimester ([facility]) 02/09/2025 Bamboo flowsheet [facility] [address] [place] [address] Fidencio Edouard, 02/03/2025 8:00 AM EDT Ancillary Procedure [facility] [address] [place] [address] Excessive growth affecting management of , antepartum, single or unspecified fetus ([facility]) 02/02/2025 Abstract [facility] [address] [place] [address] Fidencio Edouard, 01/31/2025 Abstract [facility] [address] [place] [address] Jumana Ruiz MA 01/27/2025 Telephone [facility] [address] [place] [address] Margret Mcgovern PA 01/19/2025 4:00 PM EDT Routine [facility] [address] [place] [address] Fidencio Edouard, Second trimester ([facility]); 27 weeks gestation of ([facility]) 01/18/2025 Clinisync Result Encounter NOMS External Department Unsolicited Fidencio Edouard DO from Last 3 Months Social History Tobacco [...] (210 lb) 04/06/2025 1:26 PM EDT Height 175.3 cm (5' 9 ) 08/16/2024 9:15 AM EST Body Mass Index 31.01 08/16/2024 9:15 AM EST Plan of Treatment Upcoming Encounters Date Type Department Care Team (Late st Contact Info) Description 05/19/2025 11:10 AM EDT Visit [facility] [address] [place] [address] Fidencio Edouard DO [address] [place], [place] [id number] Health Maintenance Due Date Last Done Comments Influenza Vaccine (#1) 2025 Cervical Cancer Screening 11/17/2025 HPV/Cotest 11/17/2025 Pap Smear 11/17/2025 11/17/2024, 08/11/2023 Procedures Procedure Name Priority Date/Time Associated Diagnosis Comments ALL CBC WITH AUTO DIFF Routine 6:22 AM EDT [facility] CBC WITH PLATELET NO DIFFERENTIAL Routine 04/07/2025 5:30 AM EDT [facility] DRUG SCREEN RAPID (URINE) Routine 04/07/2025 5:15 AM EDT POCT URINALYSIS DIPSTICK Routine 04/06/2025 1:23 PM EDT Third trimester ([facility]) POCT URINALYSIS DIPSTICK Routine 03/23/2025 10:41 AM EDT Third trimester ([facility]) 36 weeks gestation of ([facility]) POCT URINALYSIS DIPSTICK Routine 03/16/2025 9:22 AM EDT Third trimester ([facility]) CULTURE, GROUP B STREP WITH SUSCEPTIBLITY Routine 03/16/2025 9:20 AM EDT Third trimester ([facility]) POCT URINALYSIS DIPSTICK Routine 03/09/2025 11:14 AM EDT 34 weeks gestation of ([facility]) Third trimester ([facility]) POCT URINALYSIS DIPSTICK Routine 02/23/2025 3:56 PM EDT Third trimester ([facility]) 32 weeks gestation of ([facility]) URINARY TRACT INFECTION (HTRX) Routine 02/22/2025 9:48 AM EDT US OB LIMITED 1+ FETUSES Routine 02/16/2025 12:01 PM EDT Vaginal discharge during in third trimester ([facility]) POCT URINALYSIS DIPSTICK Routine 02/09/2025 10:40 AM EDT Third trimester ([facility]) US OB FOLLOW UP TRANSABDOMINAL APPROACH Routine 02/03/2025 8:41 AM EDT Excessive growth affecting management of , antepartum, single or unspecified fetus ([facility]) POCT URINALYSIS DIPSTICK Routine 01/19/2025 4:30 PM EDT Second trimester ([facility]) 27 weeks gestation of ([facility]) ALL CBC WITH AUTO DIFF Routine 8:31 AM EDT GLUCOSE 1 HOUR Routine 01/18/2025 8:31 AM EDT PAP SMEAR Routine 11/17/2024 12:00 AM EST from Last 3 Months or Most Recently Relevant to Health Maintenance Results * (ABNORMAL) ALL CBC WITH AUTO DIFF (04/08/2025 6:22 AM EDT) Only the most recent of2 resultswithin the time period is included. [facility] WBC 11.6(H) 4.0 - 11.0 10 [...] Narrative CLINISYNC - 04/08/2025 6:35 AM EDT Fidencio Javan DO CLINISYNC Final Result [facility] * (ABNORMAL) [facility] CBC WITH PLATELET NO DIFFERENTIAL (04/07/2025 5:30 AM EDT) [facility] WBC 8.1 4.0 - 11.0 10 3/uL [...] Narrative CLINISYNC - 04/07/2025 6:32 AM EDT [facility] Final Result [facility] * [facility] DRUG SCREEN RAPID (URINE) (04/07/2025 [...] CLINISYNC - 04/07/2025 6:58 AM EDT Fidencio Edouard DO CLINISYNC Final Result [facility] TB * (ABNORMAL) POCT urinalysis dipstick manually resulted (04/06/2025 1:23 PM EDT) Only the most recent of7 resultswithin the time period is included. Color, UA Yellow Clarity, UA Clear Glucose, UA Negative Negative - 2000(110) ++++ mg/dL Bilirubin, UA Moderate Negative - 4(70) +++ mg/dL Ketones, UA Negative Negative - 160(16) ++++ mg/dL Spec Grav, UA 1.010 1 - 1.03 Blood, UA Negative Negative - 50 Som/mcL pH, UA 8.5 5 - 9 Protein, UA Trace Negative - 1999(20) ++++ mg/dL Urobilinogen, UA 0.2 0.2 - 12 mg/dL Leukocytes, UA Moderate Negative - 500+++ Eric/mcL Nitrite, UA Negative Negative - Positive Urine 04/06/2025 1:23 PM EDT Fidencio Edouard DO POINT OF CARE TEST ENTER/EDIT OR DERABLES Final Result * CULTURE, GROUP B STREP WITH SUSCEPTIBLITY (03/16/2025 9:20 AM EDT) Swab 03/16/2025 9:20 AM EDT Margret PETER LAB BLOOD ORDERABLES Final Resul t EXTERNAL LAB * URINARY TRACT INFECTION (HTRX) (02/22/2025 9:48 AM EDT) ACINETOBACTER BAUMANII 0.000 19.961 - 24.689 ppm 02/23/2025 8:24 AM EDT [facility] ACINETOBACTER BAUMANII Not Detected 19.961 - 24.689 ppm 02/23/2025 8:24 AM EDT [facility] CITROBACTER FREUNDII 0.000 23.000 - 31.881 ppm 02/23/2025 8:24 AM EDT [facility] CITROBACTER FREUNDII Not Detected 23.000 - 31.881 ppm 02/23/2025 8:24 AM EDT [facility] ENTEROBACTER AEROGENES, CLOACAE 0.000 23.000 - 31.535 ppm 02/23/2025 8:24 AM EDT [facility] ENTEROBACTER AEROGENES, CLOACAE Not Detected 23.000 - 31.535 ppm 02/23/2025 8:24 AM EDT [facility] ENTEROCOCCUS FAECALIS, FAECIUM 0.000 26.000 - 31.575 ppm 02/23/2025 8:24 AM EDT [facility] ENTEROCOCCUS FAECALIS, FAECIUM Not Detected 26.000 - 31.575 ppm 02/23/2025 8:24 AM EDT [facility] ESCHERICHIA COLI 0.000 23.000 - 28.500 ppm 02/23/2025 8:24 AM EDT [facility] ESCHERICHIA COLI Not Detected 23.000 - 28.500 ppm 02/23/2025 8:24 AM EDT [facility] KLEBSIELLA PNEUMONIAE, OXYTOCA 0.000 23.000 - 30.500 ppm 02/23/2025 8:24 AM EDT [facility] KLEBSIELLA PNEUMONIAE, OXYTOCA Not Detected 23.000 - 30.500 ppm 02/23/2025 8:24 AM EDT [facility] MORGANELLA MORGANII 0.000 19.961 - 24.689 ppm 02/23/2025 8:24 AM EDT [facility] MORGANELLA MORGANII Not Detected 19.961 - 24.689 ppm 02/23/2025 8:24 AM EDT [facility] PROTEUS MIRABILIS, VULGARIS 0.000 23.000 - 28.500 ppm 02/23/2025 8:24 AM EDT [facility] PROTEUS MIRABILIS, VULGARIS Not Detected 23.000 - 28.500 ppm 02/23/2025 8:24 AM EDT [facility] PSEUDOMONAS AERUGINOSA 0.000 23.000 - 28.500 ppm 02/23/2025 8:24 AM EDT [facility] PSEUDOMONAS AERUGINOSA Not Detected 23.000 - 28.500 ppm 02/23/2025 8:24 AM EDT [facility] STAPHYLOCOCCUS AUREUS 0.000 26.000 - 30.902 ppm 02/23/2025 8:24 AM EDT [facility] STAPHYLOCOCCUS AUREUS Not Detected 26.000 - 30.902 ppm 02/23/2025 8:24 AM EDT [facility] STREPTOCOCCUS AGALACTIAE (GROUP B STREP) 0.000 26.000 - 32.222 ppm 02/23/2025 8:24 AM EDT [facility] STREPTOCOCCUS AGALACTIAE (GROUP B STREP) Not Detected 26.000 - 32.222 ppm 02/23/2025 8:24 AM EDT [facility] JAKE ALBICANS, PARAPSILOSIS, TROPICALIS 0.000 19.961 - 30.770 ppm 02/23/2025 8:24 AM EDT [facility] JAKE ALBICANS, PARAPSILOSIS, TROPICALIS Not Detected 19.961 - 30.770 ppm 02/23/2025 8:24 AM EDT [facility] JAKE GLABRATA 0.000 23.000 - 32.138 ppm 02/23/2025 8:24 AM EDT [facility] JAKE GLABRATA Not Detected 23.000 - 32.138 ppm 02/23/2025 8:24 AM EDT [facility] JAKE KRUSEI 0.000 23.000 - 32.271 ppm 02/23/2025 8:24 AM EDT [facility] JAKE KRUSEI Not Detected 23.000 - 32.271 ppm 02/23/2025 8:24 AM EDT [facility] SERRATIA MARCESCENS 0.000 23.000 - 31.204 ppm 02/23/2025 8:24 AM EDT [facility] SERRATIA MARCESCENS Not Detected 23.000 - 31.204 ppm 02/23/2025 8:24 AM EDT [facility] STREPTOCOCCUS PYOGENES (GROUP A STREP) 0.000 19.961 - 24.689 ppm 02/23/2025 8:24 AM EDT [facility] STREPTOCOCCUS PYOGENES (GROUP A STREP) Not Detected 19.961 - 24.689 ppm 02/23/2025 8:24 AM EDT [facility] STAPHYLOCOCCUS EPIDERMIDIS, HAEMOLYTICUS, LUGDUNENSIS, SAPROPHYTICUS (URINA 0.000 19.961 - 24.689 ppm 02/23/2025 8:24 AM EDT [facility] STAPHYLOCOCCUS EPIDERMIDIS, HAEMOLYTICUS, LUGDUNENSIS, SAPROPHYTICUS (URINA Not Detected 19.961 - 24.689 ppm 02/23/2025 8:24 AM EDT [facility] STAPHYLOCOCCUS EPIDERMIDIS, HAEMOLYTICUS, LUGDUNENSIS, SAPROPHYTICUS (URINA 0.000 19.961 - 24.689 ppm 02/23/2025 8:24 AM EDT [facility] STAPHYLOCOCCUS EPIDERMIDIS, HAEMOLYTICUS, LUGDUNENSIS, SAPROPHYTICUS (URINA Not Detected 19.961 - 24.689 ppm 02/23/2025 8:24 AM EDT [facility] Urine 02/22/2025 9:48 AM EDT 02/23/2025 2:51 AM EDT us Fidencio Edouard DO LAB BLOOD ORDERABLES Final Resul t [facility] [employer] [employer] [address] [place] [address] * US OB limited 1+ fetuses (02/16/2025 [...] II, MD, PHD at 16-Feb-2025 11:19:13 PM [facility] Procedure Note Leandra Luu MD - [...] signed by LEANDRA LUU II, MD, PHD [id number] 11:19:13 PM [facility] us Fidencio Javan DO IMG OB [...] II, MD, PHD at 04-Feb-2025 10:12:11 AM [facility] Procedure Note Leandra Luu MD - 05/16/2025 EXAM: US OB FOLLOW UP TRANSABDOMINAL APPROACH [...] signed by LEANDRA LUU II, MD, PHD [id number] 10:12:11 AM [facility] us Fidencio Javan DO IMG OB US PROCEDURES Final Resul t * GLUCOSE 1 HOUR (01/18/2025 8:31 AM EDT) GLUCOSE 1 HOUR 80 <130 mg/dL [facility] 01/18/2025 8:31 AM EDT 01/18/2025 8:32 AM EDT Narrative JOSE ANGEL - 01/18/2025 8:57 AM EDT us Fidencio Javan DO LAB BLOOD ORDERABLES Final Resul t [facility] * Pap Smear (11/17/2024 12:00 AM EST) Swab Cervical swab / Unknown us Margret PETER LAB CYTOLOGY ORDERABLES Final Re sult EXTERNAL LAB from Last 3 Months or Most Recently Relevant to Health Maintenance Insurance [place] [employer] [facility] Care Teams Electronic Gluing Machine Operator Relationship Specialty Start Date End Date Nadeem Pierre MD [address] [place] [address] PCP - General Family Medicine 02/09/25
--- OUTSIDE RECORDS SUMMARY | 2025-04-18 09:20 | XMS_ITS | Encounter Summary ---
Author Organization [facility] Address [address] [facility] [place] [address] Care Team Providers Care Financial Agent Name Role Phone Nadeem Pierre MD Primary Care Provider [phone] Nadeem Pierre MD Primary Care Provider [phone] Encounter Details Date Type Department Care Team (Late st Contact Info) Description 01/31/2025 Abstract [facility] [address] [place] [address] Jumana Ruiz MA Social History Tobacco [...] 05/19/2025 11:10 AM EDT Visit [facility] [address] [place] [address] Fidencio Edouard DO [address] [place] [address] documented as of this encounter Visit Diagnoses Not on filedocumented in this encounter Care Teams Financial Agent Relationship Specialty Start Date End Date Nadeem Pierre MD PCP - General Family Medicine 08/11/23 02/08/25 [place] [address] [place] [phone] PCP - General Family Medicine 02/09/25 documented as of this encounter
--- OUTSIDE RECORDS SUMMARY | 2025-04-18 09:20 | XMS_ITS | Encounter Summary ---
Author Organization [facility] Address [address] [facility] [place] [address] Care Team Providers Care Tool And Cutter Grinder Name Role Phone Nadeem Pierre MD Primary Care Provider [phone] Nadeem Pierre MD Primary Care Provider [phone] Encounter Details Date Type Department Care Team (Late st Contact Info) Description 02/02/2025 Abstract [facility] [address] [place] [address] Fidencio Edouard DO [address] [facility] [place] [address] Social History Tobacco Use Types Packs/Day Years [...] AM EDT Visit [facility] [address] [facility] [place] [address] Fidencio Edouard, [address] [place], [place] [address] documented as of this encounter Visit Diagnoses Not on filedocumented in this encounter Care Teams Tool And Cutter Grinder Relationship Specialty Start Date End Date Nadeem Pierre MD PCP - General Family Medicine 08/11/23 02/08/25 Nadeem Pierre MD [address] [place], [place] [address], [place] [address] PCP - General Family Medicine 02/09/25 documented as of this encounter
--- OUTSIDE RECORDS SUMMARY | 2025-04-18 09:20 | XMS_ITS | Encounter Summary ---
Author Organization [facility] Address [address] [facility] [place] [address] Care Team Providers Care Pastor Name Role Phone Nadeem Pierre MD Primary Care Provider [phone] Encounter Details Date Type Department Care Team (Late st Contact Info) Description 02/24/2025 Abstract [facility] Angel [facility] [address] [email or web address] [address] Fidencio Edouard DO [address] [place], [place] [id number] Social History Tobacco Use Types Packs/Day Years [...] AM EDT Visit [facility] Angel [facility] [address] [place] [address] Fidencio Edouard DO [address] [place] [address] [place] [address] documented as of this encounter Visit Diagnoses Not on filedocumented in this encounter Care Teams Pastor Relationship Specialty Start Date End Date Nadeem Pierre MD [address] [facility] [place] [address] PCP - General Family Medicine 02/09/25 documented as of this encounter
--- OUTSIDE RECORDS SUMMARY | 2025-04-18 09:20 | XMS_ITS | Encounter Summary ---
Author Organization [facility] Address [address] [facility] [place] [address] Care Team Providers Care Cabin Equipment Supervisor Name Role Phone Nadeem Pierre MD Primary Care Provider [phone] Nadeem Pierre MD Primary Care Provider [phone] Encounter Details Date Type Department Care Team (Late st Contact Info) Description 11/29/2024 Orders Only [facility] [address] [place] [address] Jumana Ruiz MA Social History Tobacco [...] AM EDT Visit [facility] [address] [place] [address] Fidencio Edouard DO [address] [place] [address] documented as of this encounter Procedures Procedure Name Priority Date/Time Associated Diagnosis Comments PAP SMEAR Routine 11/17/2024 12:00 AM EST documented in this encounter Results * Pap Smear (11/17/2024 12:00 AM EST) Swab Cervical swab / Unknown Margret PETER LAB CYTOLOGY ORDERABLES Final Re sult EXTERNAL LAB documented in this encounter Visit Diagnoses Not on filedocumented in this encounter Care Teams Cabin Equipment Supervisor Relationship Specialty Start Date End Date Nadeem Pierre MD PCP - General Family Medicine 08/11/23 02/08/25 Nadeem Pierre MD [address] [place] [address] PCP - General Family Medicine 02/09/25 documented as of this encounter
--- OUTSIDE RECORDS SUMMARY | 2025-04-18 09:20 | XMS_ITS | Clinical Summary ---
Author Organization [facility] Address [address] [place] [address] Care Team Providers Care Hair And Makeup Designer Name Role Phone Nadeem Pierre MD Primary Care Provider [phone] Allergies No known active allergies Medications meclizine (Antivert) 12.5 mg tablet Take 12.5 mg by mouth if needed in the morning, at noon, and at bedtime. 10/14/2024 Active omeprazole (PriLOSEC) [address] capsule Take 20 mg by mouth before breakfast. 12/15/2024 Active [id number]-hdy-ien-fish ( Multi-DHA,with vit K,) 27 mg iron-800 mcg-260 mg capsule Take by mouth. Active Active Problems Problem Noted Date Diagnosed Date Palpitations 01/30/2025 Dizziness 01/30/2025 SUNG (dyspnea on exertion) 01/30/2025 29 weeks gestation of 01/30/2025 Neck pain 01/28/2025 Acute sinusitis 09/24/2024 Comments Yes Encounters Date Type Department Care Team Description 01/28/2025 3:20 PM EDT Office Visit [facility] [address] [place] [address] Pete Hernández MD Dizziness (Primary [...] Description 06/16/2025 1:00 PM EDT Office Visit [facility] [address] [place] [address] Pete Hernández MD [address] MS[address] [place] [address] Health Maintenance Due Date Last Done Comments [...] from Last 3 Months [place] [address] [facility] Care Teams Hair And Makeup Designer Relationship Specialty Start Date End Date Nadeem Pierre MD [address] [facility] [place] [address] PCP - General Family Medicine 01/31/25
--- OUTSIDE RECORDS SUMMARY | 2025-04-18 09:20 | XMS_ITS | Encounter Summary ---
Author Organization [facility] Address [address] [facility] [place] [address] Care Team Providers Care Per Diem Physical Therapist Name Role Phone Nadeem Pierre MD Primary Care Provider [phone] Nadeem Pierre MD Primary Care Provider [phone] Encounter Details Date Type Department Care Team (Late st Contact Info) Description 09/10/2024 Clinisync Result Encounter [facility] External Department Unsolicited Giulia Edouard DO [address] [place] [address] Social History Tobacco Use Types Packs/Day Years [...] Visit [facility] [address] [place] [phone] Giulia Edouard DO [address] [place] [id number] [phone] (work) documented as of this encounter Procedures Procedure Name Priority Date/Time Associated Diagnosis Comments US OB TRANSVAGINAL 09/10/2024 9: 47 AM EST documented in this encounter Results * US OB TRANSVAGINAL (09/10/2024 9:47 AM EST) Anatomical Region Laterality Modality Other 09/10/2024 9:47 AM EST Narrative 09/10/2024 2:41 PM EST [address] [address] Ultrasound Report Signed Patient: MIGUEL ÁNGEL ORTEGA MR#: [id number] : 1995 Acct:[id number] Age/Sex: 28 / F ADM Date: 09/10/24 Loc: [facility] Attending Dr: Giulia Edouard D.O. Ordering Physician: Giulia Edouard D.O. Date of Service: 09/10/24 Procedure(s): US OB transvaginal Accession Number(s): [id number] cc: Giulia Edouard D.O.; Nadeem Pierre M.D. [address] [address] Patient Name: MIGUEL ÁNGEL ORTEGA MRN: [id number] date: 1995 Sex: F Assigned Patient Location: [facility] Current Patient Location: [facility] Accession/Order Number: [id number] Exam Date: 09/10/2024 08:06 Report Date: 09/10/2024 [...] Signed By: 09/10/24 1441 DD/ 0947 TD/TT: Shot Hole Shooter: Procedure Note Radiology, Radiologist, MD - 09/10/2024 [place] [address] Ultrasound Report Signed Patient: MIGUEL ÁNGEL ORTEGA RMR#: [id number] : 1995Acct:[id number] Age/Sex: 28 / FADM Date: 09/10/24 Loc: [facility] Attending Dr: Giulia Edouard D.O. Ordering Physician: Giulia Edouard D.O. Date of Service: 09/10/24 Procedure(s): US OB transvaginal Accession Number(s): [id number] cc: Giulia Edouard D.O.; Nadeem Pierre M.D. The [place] [id number] Patient Name: MIGUEL ÁNGEL ORTEGA MRN: [id number] date: 1995 Sex: F Assigned [facility] Current [facility]: [facility] Accession/Order Number: [id number] Exam Date: 09/10/2024 08:06 Report Date: 09/10/2024 [...] M.D. Signed By:09/10/24 1441 DD/ 0947 TD/TT: Shot Hole Shooter: us Giulia Javan DO [facility] Final Result documented in this encounter Visit Diagnoses Not on filedocumented in this encounter Care Teams Per Diem Physical Therapist Relationship Specialty Start Date End Date Nadeem Pierre MD PCP - General Family Medicine 08/11/23 02/08/25 [place] [address] [place] [phone] PCP - General Family Medicine 02/09/25 documented as of this encounter
--- OUTSIDE RECORDS SUMMARY | 2025-04-18 09:20 | XMS_ITS | Encounter Summary ---
Author Organization [facility] Address [address] [facility] [place] [address] Care Team Providers Care Hourly Shift Manager Name Role Phone Nadeem Pierre MD Primary Care Provider [phone] Nadeem Pierre MD Primary Care Provider [phone] Encounter Details Date Type Department Care Team (Late st Contact Info) Description 09/10/2024 Abstract [facility] [address] [place] [address] Fidencio Edouard DO [address] [address] Social History Tobacco Use Types Packs/Day Years [...] AM EDT Visit [facility] [address] [facility] [place] [address] Fidencio Edouard, [address] [place], [place] [phone] documented as of this encounter Visit Diagnoses Not on filedocumented in this encounter Care Teams Hourly Shift Manager Relationship Specialty Start Date End Date Nadeem Pierre MD PCP - General Family Medicine 08/11/23 02/08/25 Nadeem Pierre MD [address] [place] [address], [place] [address] PCP - General Family Medicine 02/09/25 documented as of this encounter
--- OUTSIDE RECORDS SUMMARY | 2025-04-18 09:20 | XMS_ITS | Encounter Summary ---
Author Organization [facility] Address [address] [facility] [place] [address] Care Team Providers Care Wound Nurse Name Role Phone Nadeem Pierre MD Primary Care Provider [phone] Nadeem Pierre MD Primary Care Provider [phone] Encounter Details Date Type Department Care Team (Late st Contact Info) Description 09/10/2024 Abstract [facility] [email or web address] [address] Fidencio Edouard DO [address] [place] [address] Social History Tobacco Use Types Packs/Day Years [...] AM EDT Visit [facility] [address] [facility] [place] [place] [address] Fidencio Edouard, [address] [place], [place] [phone] documented as of this encounter Visit Diagnoses Not on filedocumented in this encounter Care Teams Wound Nurse Relationship Specialty Start Date End Date Nadeem Pierre MD PCP - General Family Medicine 08/11/23 02/08/25 Nadeem Pierre MD [address] [place], [place] [address] [address] PCP - General Family Medicine 02/09/25 documented as of this encounter
--- OUTSIDE RECORDS SUMMARY | 2025-04-18 09:20 | XMS_ITS | Encounter Summary ---
Author Organization [facility] Address [address] [facility] [place] [address] Care Team Providers Care Fuel Operator Name Role Phone Nadeem Pierre MD Primary Care Provider [phone] Encounter Details Date Type Department Care Team (Late st Contact Info) Description 03/11/2025 Abstract [facility] [address] [email or web address] [address] Fidencio Edouard DO [address] [place], [place] [id number] Social History Tobacco Use Types Packs/Day Years [...] AM EDT Visit [facility] [address] [place] [address] Fidencio Edouard DO [address] [place] [address] [place] [address] documented as of this encounter Visit Diagnoses Not on filedocumented in this encounter Care Teams Fuel Operator Relationship Specialty Start Date End Date Nadeem Pierre MD [address] [facility] [place] [address] PCP - General Family Medicine 02/09/25 documented as of this encounter
--- OUTSIDE RECORDS SUMMARY | 2025-04-18 09:20 | XMS_ITS | Encounter Summary ---
Author Organization [facility] Address [address] [facility] [place] [address] Care Team Providers Care Electrician'S Assistant Name Role Phone Nadeem Pierre MD Primary Care Provider [phone] Encounter Details Date Type Department Care Team (Late st Contact Info) Description 02/22/2025 Abstract [facility] [address] [place] [address] Fidencio Edouard DO [address] [place], [place] [phone] Social History Tobacco Use Types Packs/Day Years [...] AM EDT Visit [facility] [address] [place] [address] Fidencio Edouard DO [address] [place] [address] [place] [address] documented as of this encounter Visit Diagnoses Not on filedocumented in this encounter Care Teams Electrician'S Assistant Relationship Specialty Start Date End Date Nadeem Pierre MD [address] [facility] [place] [address] PCP - General Family Medicine 02/09/25 documented as of this encounter
--- OUTSIDE RECORDS SUMMARY | 2025-04-18 09:20 | XMS_ITS | Encounter Summary ---
Author Organization [facility] Address [address] [facility] [place] [address] Care Team Providers Care Cash Applications Specialist Name Role Phone Nadeem Pierre MD Primary Care Provider [phone] Nadeem Pierre MD Primary Care Provider [phone] Encounter Details Date Type Department Care Team (Late st Contact Info) Description 02/27/2024 Abstract [facility] [address] [place] [address] Ashlyn Trinidad LPN Social History Tobacco [...] AM EDT Visit [facility] [address] [place] [address] Fidencio Edouard DO [address] [place], [place] [phone] documented as of this encounter Visit Diagnoses Not on filedocumented in this encounter Care Teams Cash Applications Specialist Relationship Specialty Start Date End Date Nadeem Pierre MD PCP - General Family Medicine 08/11/23 02/08/25 Nadeem Pierre MD [address] [place] [address] [phone] PCP - General Family Medicine 02/09/25 documented as of this encounter
--- NOTE | 2025-04-18 16:22 | PC.NURSE ---
Sidra and 11 day old Maria Isabel arrive for support. Sidra voices absolutely no concerns for Maria Isabel . States baby is nursing well, latching much better with the assertive latch as mom named deep latching. He does not hurt me, and I hear more swallowing. Sidra is now concerned for milk supply. States started pumping , and averages 1/2 - 1 oz combined. This is before baby feeds, in conjunction to having maria isabel on the breast or after feeds. Sidra is convinced that she has low/no milk supply. Baby Maria Isabel having multiple wets and stools daily and is gaining weight appropriately. All finding reviewed. Sidra remains worried. Will triple feed until 04/22/2025, will start supplements either Mother love with Moringa or Benevolent drops as she prefers and regularly pump with Power pumping prior to bedtime.Will return for support on . Supply check. Leaves for appointment with Dr Pierre. Denies other concerns. No weight today on Maria Isabel per mom's choice.
== END 2025-04-18 16:39 | disposition home or self-care (01) ==
PROVIDERS: PCP Family Medicine; Visit Provider Obstetrics & Gynecology
DX: Z39.1 Encounter for care and examination of lactating mother (principal)

== ENCOUNTER 2025-06-01 09:02 | Outpatient (OUT) | payer BC, OTHER, SELFPAY ==
--- NOTE | 2025-06-01 09:00 | CA_ITS ---
Patient Name: MIGUEL ÁNGEL SPANN MR#: [id number] : 1995 Exam Date: 06/01/2025 Ordering Doctor: DR. NAYANA REDD M.D. ECHOCARDIOGRAM REPORT PROCEDURE: CA ECHO DOPPLER COMPLETE INDICATIONS: Palpitations, dyspnea on exertion COMPARISON: None. DESCRIPTION: COMPLETE ECHOCARDIOGRAM Real-time transthoracic echocardiography with 2D, M-mode, spectral and color flow Doppler performed. QUALITY: Technical quality was adequate; subcostal images could not be interpreted. LEFT VENTRICLE: Normal chamber size. Normal left ventricular wall thickness. Calculated left ventricular ejection fraction is 69%. LV EF: Global left ventricular systolic function is normal; visually estimated ejection fraction 60 to 65%. No significant wall motion abnormalities. DIASTOLIC: Normal diastolic function. ATRIAL SEPTUM: Inadequately seen. LEFT ATRIUM: Normal chamber size. RIGHT ATRIUM: Normal chamber size. RIGHT VENTRICLE: Normal chamber size. Normal right ventricular systolic function. TRICUSPID VALVE: Normal mobility and thickness. No stenosis with trivial regurgitation. No evidence of pulmonary hypertension. RVSP 21 mmHg MITRAL VALVE: Normal mobility and thickness. No evidence of mitral valve stenosis. There is no mitral annular calcification. Trivial mitral regurgitation. AORTIC VALVE: Normal trileaflet appearance. No visible sclerosis. Normal leaflet mobility. No evidence of aortic valve stenosis. No aortic regurgitation. AORTIC ROOT: Normal diameter and appearance. PULMONIC VALVE: Normal thickness and mobility. No stenosis. Trivial regurgitation. PERICARDIUM: No evidence of pericardial effusion. IVC: Inadequately seen. CONCLUSION: 1. Global left ventricular systolic function is normal; visually estimated ejection fraction 60 to 65% 2. Normal right ventricular size and systolic function 3. Normal diastolic function 4. The left atrium is normal in size 5. No significant valvular abnormalities Adult Echocardiography Procedure Report Left Ventricle LVEDD (3.7 - 5.6 cm): 4.55 cm LVESD (2.2 - 4.0 cm): 3.21 cm LVIVS thickness (0.6 - 1.2 cm): 0.90 cm LVPW thickness (0.5 - 1.0 cm): 0.99 cm e': 0.17 m/s E - e': 4.98 LVOT Max Gradient: 4.53 mm[Hg] LVOT Area (cm2): 1.06 m/s Peak Velocity (LVOT): 1.06 m/s Mean Velocity (LVOT): 0.67 m/s LVOT Diameter 2.24 cm Left Ventricular Ejection Fraction: 68.77 % Left Atrium LA Volume Index (2D A2C): 21.37 ml/m2 Left Atrium Systolic Dimension: 3.13 cm Mitral Valve MV E to A Ratio: 1.97 Mitral Valve A-Wave Peak Velocity: 0.43 m/s Mitral Valve E-Wave Peak Velocity: 0.85 m/s Right Ventricle Aorta AO Root Diam: 2.98 cm Aortic Valve AoV Area (Peak Brian): 3.35 cm2, 3.35 cm2 AoV Area (VTI): 2.89 cm2, 2.89 cm2 Peak Velocity(Antegrade Flow): 1.25 m/s Peak Gradient(Antegrade Flow): 6.24 mm[Hg] Mean Velocity(Antegrade Flow): 0.81 m/s Mean Gradient(Antegrade Flow): 3.18 mm[Hg] Velocity Time Integral: 28.79 cm Tricuspid Valve Peak Velocity (Regurgitant Flow): 2.13 m/s Pulmonic Valve Peak Gradient: 4.40 mm[Hg], 5.44 mm[Hg] Right Atrium Right Atrium Systolic Pressure: 44.35 ml, 44.35 ml Dictated by: Candido De Luna M.D. on 06/02/2025 at 09:54 Approved by: Candido De Luna M.D. on 06/02/2025 at 09:57
--- OUTSIDE RECORDS SUMMARY | 2025-06-01 09:19 | XMS_ITS | CCD ---
Author Organization [facility] Care Team Providers Care Tmh Teacher Name Role Phone JAVAN, DR PLATT Attending [...] JAVAN, DR PLATT Attending Unavailable ZIEBER, DR JASYHREE [employer] Unavailable JAVAN, DR PLATT Attending [...] Deanne Pierre MD Primary Care Provider [phone] GIULIA EDOUARD Attending Unavailable SOL, MARGRET Attending Unavailable SOL, [...] Drug Class(es) Dates Sig (Normalized) Sig (Original) albuterol 0.83 mg/ml inhalation solution (2 sources) beta2-Adrenergic Agonist Start: 05-03-2025 End: 05-03-2026 albuterol (2.5 MG/3ML) 0.083% nebulizer solution Indications: URI, acute Take 3 mL (2.5 mg) by nebulization every 6 (six) hours if needed for wheezing 75 mL 11 05/03/2025 05/03/2026 Active azithromycin 250 mg oral tablet (15 sources) [...] 7 days. 21 capsule 11/15/2024 11/22/2024 Active desogestrel 0.15 mg / ethinyl estradiol 0.03 mg oral tablet (4 sources) Progestin, Estrogen Start: 05-25-2025 End: 06-22-2025 take 1 tablet by mouth once daily, then take 1 tablet by mouth once daily desogestrel-ethinyl estradiol (Apri) 0.15-30 MG-MCG tablet Indications: Encounter for initial prescription of contraceptive pills Take 1 tablet by mouth Daily for 28 days Take 1 tablet by mouth daily 28 tablet 11 05/25/2025 06/22/2025 Active Start: 04-21-2024 End: 08-10-2024 desogestrel-ethinyl estradio l (Apri) 0.15-30 MG-MCG tablet Indications: Uses control Take 1 tablet by mouth Daily 28 tablet 12 04/21/2024 08/10/2024 Discontinued (Therapy completed) loratadine 10 mg disintegrating oral tablet (7 [...] EC tablet Indications: Heartburn during , antepartum ([facility]) Take 1 tablet (20 mg) by mouth [...] Drug Class(es) Dates Sig (Normalized) Sig (Original) etodolac 200 mg oral capsule (2 sources) [...] WITH AUTO DIFFon BASOPHILS ABSOLUTE AUTO 0 [facility] Basophils/100 WBC (Bld) 0.2 % 0.2 - 2.0 % [facility] Eosinophils/100 WBC (Bld) 0.5 % Low 0.9 - 7.0 % [facility] Erythrocyte distribution width (RBC) [Ratio] 12.2 % 11.0 - 15.0 % [facility] Hematocrit (Bld) [Volume fraction] 33.8 % Low 36.0 - 48.0 % [facility] Hemoglobin (Bld) [Mass/Vol] 11.8 g/dL Low 12.0 - 16.0 g/dL [facility] IMMATURE GRANULOCYTES ABS AUTO 0.06 High [facility] Immature granulocytes/100 WBC (Bld) 0.5 % 0.0 - 0.5 % [facility] Interpretation and review of laboratory results Abnormal [facility] LYMPHOCYTES ABSOLUTE AUTO 1.5 [facility] Lymphocytes/100 WBC (Bld) 12.9 % Low 20.5 - 60.0 % [facility] MCH (RBC) [Entitic mass] 34.3 pg High 26.7 - 34.0 pg [facility] MCHC (RBC) [Mass/Vol] 34.9 g/dL 29.9 - 35.2 g/dL [facility] MCV (RBC) [Entitic vol] 98.3 fL 81.0 - 99.0 fL [facility] MONOCYTES ABSOLUTE AUTO 0.8 [facility] Monocytes/100 WBC (Bld) 7.1 % 1.7 - 12.0 % [facility] NEUTROPHILS ABSOLUTE AUTO 9.2 High [facility] Neutrophils/100 WBC (Bld) 78.8 % High 43.0 - 75.0 % [facility] Platelet mean volume (Bld) [Entitic vol] 11.3 fL 9.5 - 13.5 fL [facility] TBH EO # 0.1 [facility] Healthcar e TB PLT 142 Low [facility] Health[facility] e TB RBC 3.44 Low [facility] e TB WBC 11.6 High [facility]car e [facility] Healthcar e [facility] CBC WITH PLATELET NO DI FFERENTIALon 04-07-2025 Erythrocyte distribution width (RBC) [Ratio] 12 % 11.0 - 15.0 % [facility] Hematocrit (Bld) [Volume fraction] 37.1 % 36.0 - 48.0 % [facility] Hemoglobin (Bld) [Mass/Vol] 13.2 g/dL 12.0 - 16.0 g/dL [facility] Interpretation and review of laboratory results Abnormal [facility] MCH (RBC) [Entitic mass] 34.1 pg High 26.7 - 34.0 pg [facility] MCHC (RBC) [Mass/Vol] 35.6 g/dL High 29.9 - 35.2 g/dL [facility] MCV (RBC) [Entitic vol] 95.9 fL 81.0 - 99.0 fL [facility] Platelet mean volume (Bld) [Entitic vol] 11.6 fL 9.5 - 13.5 fL [facility] TBH PLT 170 [facility] e TB RBC 3.87 Low [facility] TBH WBC 8.1 [facility] e Urinalysis macro (dipstick) panel (U)on 04-06-2025 Bilirubin, UA Moderate Negative - 4(70) +++ mg/dL [facility] Blood, UA Negative Negative - 50 Som/mcL [facility] Clarity, UA Clear [facility] Healthca re Color, UA Yellow [facility] Health[facility] e Glucose, UA Negative Negative - 1999(110) ++++ mg/dL [facility] Interpretation and review of laboratory results Abnormal [facility] Healthca re Ketones, UA Negative Negative - 160(16) ++++ mg/dL [facility] Leukocytes, UA Moderate Negative - 500+++ Eric/mcL [facility] Nitrite, UA Negative Negative - Positive [facility] pH, UA 8.5 5 - 9 [facility] Protein, UA Trace Negative - 1999(20) ++++ mg/dL [facility] Spec Grav, UA 1.01 1 - 1.03 [facility] Urobilinogen, UA 0.2 0.2 - 12 mg/dL [facility] Urinalysis macro (dipstick) panel (U)on 03-23-2025 Bilirubin, UA Negative Negative - 4(70) +++ mg/dL [facility] Blood, UA Negative Negative - 50 Som/mcL [facility] Clarity, UA Clear [facility] Healthca re Color, UA Yellow [facility] Health[facility] e Glucose, UA Negative Negative - 1999(110) ++++ mg/dL [facility] Interpretation and review of laboratory results Abnormal [facility] Healthca re Ketones, UA Negative Negative - 160(16) ++++ mg/dL [facility] Leukocytes, UA Positive Negative - 500+++ Eric/mcL [facility] Nitrite, UA Negative Negative - Positive [facility] pH, UA 7 5 - 9 [facility] Protein, UA Negative Negative - 1999(20) ++++ mg/dL [facility] Healthcare Spec Grav, UA 1.015 1 - 1.03 [facility] care Urobilinogen, UA 1.0 0.2 - 12 mg/dL [facility] Healthcar e Urinalysis macro (dipstick) panel (U)on 03-16-2025 Bilirubin, UA Negative Negative - 4(70) +++ mg/dL [facility] Healthcare Blood, UA Negative Negative - 50 Som/mcL [facility] Healthcare Clarity, UA Clear [facility] Color, UA Yellow [facility] Glucose, UA Negative Negative - 1999(110) ++++ mg/dL [facility] Interpretation and review of laboratory results Abnormal [facility] Ketones, UA Negative Negative - 160(16) ++++ mg/dL [facility] Leukocytes, UA Positive Negative - 500+++ Eric/mcL [facility] Healthcare Comment on above: small Nitrite, UA Negative Negative - Positive [facility] pH, UA 6 5 - 9 [facility] Health[facility] e Protein, UA Negative Negative - 1999(20) ++++ mg/dL [facility] Healthcare Spec Grav, UA 1.025 1 - 1.03 [facility] care Urobilinogen, UA 1.0 0.2 - 12 mg/dL [facility] Urinalysis macro (dipstick) panel (U)on 03-09-2025 Bilirubin, UA Negative Negative - 4(70) +++ mg/dL [facility] Blood, UA Positive Negative - 50 Som/mcL [facility] Healthcare Comment on above: Trace-intact Clarity, UA Cloudy [facility] Color, UA Yellow [facility] Glucose, UA Negative Negative - 1999(110) ++++ mg/dL [facility] Interpretation and review of laboratory results Abnormal [facility] Ketones, UA Negative Negative - 160(16) ++++ mg/dL [facility] Healthcare Leukocytes, UA Positive Negative - 500+++ Eric/mcL [facility] Healthcare Comment on above: Small Nitrite, UA Negative Negative - Positive [facility] pH, UA 7 5 - 9 [facility] Protein, UA Negative Negative - 1999(20) ++++ mg/dL [facility] Healthcare Spec Grav, UA 1.025 1 - 1.03 [facility] Urobilinogen, UA 1.0 0.2 - 12 mg/dL [facility] Urinalysis macro (dipstick) panel (U)Ordered By: Kaya Oh on 02-23-2025 Bilirubin, UA Negative Negative - 4(70) +++ mg/dL [facility] Blood, UA Positive Negative - 50 Som/mcL [facility] Clarity, UA Clear [facility] Color, UA Yellow [facility] Glucose, UA Negative Negative - 1999(110) ++++ mg/dL [facility] Interpretation and review of laboratory results Abnormal [facility] Healthca re Ketones, UA Negative Negative - 160(16) ++++ mg/dL [facility] Leukocytes, UA Negative Negative - 500+++ Eric/mcL [facility] Nitrite, UA Negative Negative - Positive [facility] pH, UA 6.5 5 - 9 [facility] Protein, UA Many Negative - 2000(20) ++++ mg/dL [facility] Spec Grav, UA 1.025 1 - 1.03 [facility] Urobilinogen, UA 2.0 0.2 - 12 mg/dL [facility] US OB LIMITED 1+ [...] II, MD, PHD at 16-Feb-2025 11:19:13 PM [facility] Normal Not Available Comment on above: Order Comment: US OB AMNIOTIC FLUID VOLUME Estimated Date of Delivery: 04/14/25 Gestational Age as of 02/09/2025: 30w6d Urinalysis macro (dipstick) panel (U)on 02-09-2025 Bilirubin, UA Negative Negative - 4(70) +++ mg/dL [facility] Blood, UA Negative Negative - 50 Som/mcL [facility] Clarity, UA Cloudy [facility] Healthca re Color, UA Marichuy [facility] Glucose, UA Negative Negative - 1999(110) ++++ mg/dL [facility] Interpretation and review of laboratory results Abnormal [facility] re Ketones, UA Negative Negative - 160(16) ++++ mg/dL [facility] Leukocytes, UA Positive Negative - 500+++ Eric/mcL [facility] Nitrite, UA Negative Negative - Positive [facility] pH, UA 7.5 5 - 9 [facility] e Protein, UA Positive Negative - 1999(20) ++++ mg/dL [facility] Spec Grav, UA 1.025 1 - 1.03 [facility] Urobilinogen, UA 2.0 0.2 - 12 mg/dL [facility] US OB FOLLOW UP TRANSABDOMIN [...] II, MD, PHD at 04-Feb-2025 10:12:11 AM [facility] Normal Not Available Comment on above: Order Comment: US OB SCAN FOR GROWTH Estimated Date of Delivery: 04/14/25 Gestational Age as of 12/28/2024: 24w5d Office Visiton 01-28-2025 Follow-up visit [id number] Sidra Ortega Arash 1995 F Date Provider Department Center 01/28/2025 [id number] REDD [facility] Family History Problem Relation Age of Onset Arrhythmia Mother Family Status - Relation Status Age at Mother Alive Father Alive Brother Alive Level of Service:16911 [place] OFFICE/OUTPATIENT NEW MODERATE MDM 45 MINUTES Reason for Visit and Comments: Palpitations [082964] Dizziness [891414] Excessive Sweating [[id number]] Normal [facility] Urinalysis macro (dipstick) panel (U)on 01-19-2025 Bilirubin, UA Negative Negative - 4(70) +++ mg/dL [facility] Blood, UA Negative Negative - 50 Som/mcL [facility] Clarity, UA Clear [facility] Healthri re Color, UA Yellow [facility] Healthcar e Glucose, UA Negative Negative - 1999(110) ++++ mg/dL [facility] Interpretation and review of laboratory results Abnormal [facility] Healthri re Ketones, UA Negative Negative - 160(16) ++++ mg/dL [facility] Leukocytes, UA Positive Negative - 500+++ Eric/mcL [facility] Nitrite, UA Negative Negative - Positive [facility] pH, UA 6 5 - 9 [facility] Healthcar e Protein, UA Trace Negative - 1999(20) ++++ mg/dL [facility] Spec Grav, UA 1.02 1 - 1.03 [facility] care Urobilinogen, UA 1.0 0.2 - 12 mg/dL [facility] GLUCOSE 1 HOURon 01-18-2025 Glucose [Mass/Vol] 80 mg/dL NINF - 13 0 mg/dL [facility] Urinalysis macro (dipstick) panel (U)on 12-28-2024 Bilirubin, UA Negative Negative - 4(70) +++ mg/dL [facility] Blood, UA Negative Negative - 50 Som/mcL [facility] Clarity, UA Clear [facility] [employer] Color, UA Yellow [facility] Glucose, UA Negative Negative - 1999(110) ++++ mg/dL [facility] Interpretation and review of laboratory results Abnormal [facility] re Ketones, UA Negative Negative - 160(16) ++++ mg/dL [facility] Leukocytes, UA Positive Negative - 500+++ Eric/mcL [facility] Comment on above: small Nitrite, UA Negative Negative - Positive [facility] pH, UA 1 5 - 9 [facility] [employer] Protein, UA Positive Negative - 2000(20) ++++ mg/dL [facility] Comment on above: 30mg Spec Grav, UA 1.025 1 - 1.03 [facility] Urobilinogen, UA 1.0 0.2 - 12 mg/dL [facility] US OB 14+ WEEKS ANATOMY [...] II, MD, PHD at 01-Dec-2024 08:36:07 AM [facility] Normal Not Available Comment on above: Order Comment: US OB ANATOMY SINGLE W US OB CERVICAL LENGTH Estimated Date of Delivery: 04/14/25 Gestational Age as of 11/03/2024: 16w6d IGP,APTIMA HPV,AGE GDLNon AGE GDLN ACOG TESTING Note . [facility] Comment on above: TESTS RESULT FLAG UN ITS REF RANGE LAB Clinician Provided Cytology Information Source.............Cervix Other.............. No. of containers..01 ThinPrep Vial Age Algo ACOG Sunita... FLAG LEGEND: L-Low Normal,H-High Normal,LL-Alert Low,HH-Alert High <-Panic Low,>-Panic High,A-Abnormal,AA-Critical Abnormal Performed at: 01 =G [address] [id number] Senait Shook MD, HPV APTIMA Negative Negative [facility] Comment on above: This nucleic acid am plification test detects fourteen high- risk HPV types (16,18,31,33,35,39,45,51,52,56,58,59,66,68) without differentiation. Performed at: =G - [facility], [place] [id number] Criminal Intelligence Analyst: Senait Shook MD, Phone: [phone] Performed at: - [facility] [id number] Criminal Intelligence Analyst: Senait Shook MD, Phone: [phone] IGP, APTIMA HPV, RFX 16/18,45 Note . [facility] Comment on above: TESTS RESULT FLAG UN ITS REF RANGE LAB DIAGNOSIS: 02 NEGATIVE FOR INTRAEPITHELIAL LESION OR MALIGNANCY. THIS SPECIMEN WAS RESCREENED PART OF OUR [employer] PRODUCTION SUPERVISOR PROGRAM. Specimen adequacy: 02 Satisfactory for evaluation. No endocervical component is identified. An endocervical component is not commonly seen in the patient. Performed by: Lorraine Sorenson Control Clerk Auditing QC reviewed by: Lorraine Leung Control Clerk Auditing ([facility]) . 02 Note: Note 02 The [...] <-Panic Low,>-Panic High,A-Abnormal,AA-Critical Abnormal Performed at: [address] [id number] Senait Shook MD, SPATULA-ALONE CERVIX [facility] No Panel Informationon 11-16 STAPHYLOCOCCUS EPIDERMIDIS, HAEMOLYTICUS, LUGDUNENSIS, SAPROPHYTICUS (URINA 0 [facility] STAPHYLOCOCCUS EPIDERMIDIS, HAEMOLYTICUS, LUGDUNENSIS, SAPROPHYTICUS (URINA Not detected [facility] URINARY TRACT INFECTION (HTR X)on 11-16-2024 ACINETOBACTER BAUMANII 0 [facility] Healthcare ACINETOBACTER BAUMANII Not detected [facility] Healthcare JAKE ALBICANS, PARAPSILOSIS, TROPICALIS 0 [facility] JAKE ALBICANS, PARAPSILOSIS, TROPICALIS Not detected [facility] JAKE GLABRATA 0 [facility]erg[facility] JAKE GLABRATA Not detected [facility] JAKE KRUSEI 0 [facility] JAKE KRUSEI Not detected [facility] CITROBACTER FREUNDII 0 [facility] CITROBACTER FREUNDII Not detected [facility] ENTEROBACTER AEROGENES, CLOACAE 0 [facility] Healthri re ENTEROBACTER AEROGENES, CLOACAE Not detected [facility] Health[facility] re ENTEROCOCCUS FAECALIS, FAECIUM 0 [facility] ENTEROCOCCUS FAECALIS, FAECIUM Not detected [facility] ESCHERICHIA COLI 0 [facility] ESCHERICHIA COLI Not detected [facility] ealtare KLEBSIELLA PNEUMONIAE, OXYTOCA 0 [facility] are KLEBSIELLA PNEUMONIAE, OXYTOCA Not detected [facility] are MORGANELLA MORGANII 0 [facility] Healthcare MORGANELLA MORGANII Not detected [facility] Healthcare PROTEUS MIRABILIS, VULGARIS 0 [facility] PROTEUS MIRABILIS, VULGARIS Not detected [facility] PSEUDOMONAS AERUGINOSA 0 [facility] PSEUDOMONAS AERUGINOSA Not detected [facility] SERRATIA MARCESCENS 0 [facility] SERRATIA MARCESCENS Not detected [facility] STAPHYLOCOCCUS AUREUS 0 [facility] STAPHYLOCOCCUS AUREUS Not detected [facility] STREPTOCOCCUS AGALACTIAE (GROUP B STREP) 0 [facility] STREPTOCOCCUS AGALACTIAE (GROUP B STREP) Not detected [facility] STREPTOCOCCUS PYOGENES (GROUP A STREP) 0 [facility] STREPTOCOCCUS PYOGENES (GROUP A STREP) Not detected [facility] CARDIOCHECK - LIPID AND GLUC OSEon 11-09-2024 Cholesterol [Mass/Vol] 209 mg/dL NINF - 200 [facility] Cholesterol in HDL [Mass/Vol] 64 mg/dL M: 35-65 F: 35-80 [facility] Cholesterol in LDL [Mass/Vol] 108 mg/dL NINF - 100 [facility] Glucose [Mass/Vol] 98 mg/dL NINF - 100 [facility]althcare Interpretation and review of laboratory results Abnormal [facility] re Triglyceride [Mass/Vol] 185 mg/dL NINF - 150 [facility] Urinalysis macro (dipstick) panel (U)on 11-03-2024 Bilirubin, UA Few Negative - 4(70) +++ mg/dL [facility] Blood, UA Positive Negative - 50 Som/mcL [facility] Color, UA Marichuy [facility] Healthcar e Glucose, UA Negative Negative - 1999(110) ++++ mg/dL [facility] Interpretation and review of laboratory results Abnormal [facility] re Ketones, UA Negative Negative - 160(16) ++++ mg/dL [facility] Leukocytes, UA Negative Negative - 500+++ Eric/mcL [facility] Nitrite, UA Negative Negative - Positive [facility] pH, UA 5.5 5 - 9 [facility] Healthcar e Protein, UA Positive Negative - 1999(20) ++++ mg/dL [facility] Spec Grav, UA 1.03 1 - 1.03 [facility] Urobilinogen, UA 1.0 0.2 - 12 mg/dL [facility] Urinalysis macro (dipstick) panel (U)on 10-06-2024 Bilirubin, UA Negative Negative - 4(70) +++ mg/dL [facility] Blood, UA Negative Negative - 50 Som/mcL [facility] Clarity, UA Clear [facility] Healthca re Color, UA Yellow [facility] Healthcar e Glucose, UA Negative Negative - 1999(110) ++++ mg/dL [facility] Interpretation and review of laboratory results Normal [facility] Ketones, UA Negative Negative - 160(16) ++++ mg/dL [facility] Leukocytes, UA Negative Negative - 500+++ Eric/mcL [facility] Nitrite, UA Negative Negative - Positive [facility] pH, UA 5.5 5 - 9 [facility] Health[facility] e Protein, UA Negative Negative - 1999(20) ++++ mg/dL [facility] Spec Grav, UA 1.03 1 - 1.03 [facility] Urobilinogen, UA 1.0 0.2 - 12 mg/dL [facility] BOX TESTon 10-01-2024 BOX TEST SENT OUT [employer] [facility] [address]OX[address] [employer] [facility] Healthcar e BOX2 10/01/2024 [facility] [employer]OX [facility] Health[facility] e HCG ( test) Ql (U)o n 09-10-2024 Interpretation and review of laboratory results Abnormal [facility] Healthca re Preg Test, Ur Positive Negative [facility] Urinalysis macro (dipstick) panel (U)on 09-10-2024 Bilirubin, UA Negative Negative - (70) +++ mg/dL [facility] Blood, UA Positive Negative - 50 Som/mcL [facility] Comment on above: small Clarity, UA Clear [facility] Healthca re Color, UA Yellow [facility] Health[facility] e Glucose, UA Negative Negative - 1999(110) ++++ mg/dL [facility] Interpretation and review of laboratory results Abnormal [facility] Ketones, UA Negative Negative - 160(16) ++++ mg/dL [facility] Leukocytes, UA Trace Negative - 500+++ Eric/mcL [facility] Nitrite, UA Negative Negative - Positive [facility] pH, UA 5.5 5 - 9 [facility] Healthcar e Protein, UA Negative Negative - 1999(20) ++++ mg/dL [facility] Spec Grav, UA 1.025 1 - 1.03 [facility] Urobilinogen, UA 0.2 0.2 - 12 mg/dL [facility] Cytology Cervical or vaginal smear or scraping studyOrdered By: Jaimee Beckman on 08-11-2023 [facility] Healthcar e CBC AUTO DIFFon 10-21-2022 BASO # 0.0 103/ul Normal 0.0-0.1 [facility] Comment on above: Performed By: #### C BC #### [facility] [address] [address] [address] Diann Dickerson Basophils/100 WBC (Bld) 0.4 % Normal 0.2-2.0 [facility] Comment on above: Performed By: #### C BC #### [facility] [address] [address] [address] Diann Dickerson EO # 0.0 103/ul Normal 0.0-0.7 [facility] Comment on above: Performed By: #### C BC #### [facility] [address] [address] [address] Diann Dickerson Eosinophils/100 WBC (Bld) 0.8 % Critically low 0.9-7.0 [facility] Comment on above: Performed By: #### C BC #### [facility] [address] [address] [address] Diann Dickerson Erythrocyte distribution width (RBC) [Ratio] 11.0 % Normal 11.0-15.0 [facility] Comment on above: Performed By: #### C BC #### [facility] [address] [address] [address] Diann Dickerson Hematocrit (Bld) [Volume fraction] 38.0 % Normal 36.0-48.0 [facility] Comment on above: Performed By: #### C BC #### [facility] [address] [address] [address] Diann Dickerson Hemoglobin (Bld) [Mass/Vol] 13.6 g/dL Normal 12.0-16.0 [facility] Comment on above: Performed By: #### C BC #### [facility] [address] [place] [address] Dr. Diann Dickerson IG # 0.02 10e3/ul Normal 0.00-0.03 [facility] Comment on above: Performed By: #### C BC #### [facility] [address] [place] [place] [address] Dr. Diann Dickerson IG % 0.4 % Normal 0.0-0.5 [facility] Comment on above: Performed By: #### C BC #### [facility] [address] [place] [address] Dr. Diann Dickerson LYMPH # 2.0 103/ul Normal 1.2-3.8 [facility] Comment on above: Performed By: #### C BC #### [facility] [address] [place] [address] Dr. Diann Dickerson Lymphocytes/100 WBC (Bld) 38.2 % Normal 20.5-60.0 [facility] Comment on above: Performed By: #### C BC #### [facility] [address] [place] [address] Dr. Diann Dickerson MANUAL DIFF REQ NO Normal [facility] Comment on above: Performed By: #### C BC #### [facility] [address] [place] [address] Dr. Diann Dickerson MCH (RBC) [Entitic mass] 31.6 pg Normal 26.7-34.0 [facility] Comment on above: Performed By: #### C BC #### [facility] [address] [place] [address] Dr. Diann Dickerson MCHC (RBC) [Mass/Vol] 35.8 g/dL Critically high 29.9-35.2 [facility] Comment on above: Performed By: #### C BC #### [facility] [address] [place] [address] Dr. Diann Dickerson MCV (RBC) [Entitic vol] 88.2 fL Normal 81.0-99.0 [facility] Comment on above: Performed By: #### C BC #### [facility] [address] [place] [address] Dr. Diann Dickerson MONO # 0.4 103/ul Normal 0.3-0.8 [facility] Comment on above: Performed By: #### C BC #### [facility] [address] [address] [address] Diann Dickerson Monocytes/100 WBC (Bld) 7.7 % Normal 1.7-12.0 [facility] Comment on above: Performed By: #### C BC #### [facility] [address] [place] [address] Dr. Diann Dickerson NEUT # 2.7 103/ul Normal 1.4-6.5 [facility] Comment on above: Performed By: #### C BC #### [facility] [address] [place] [address] Dr. Diann Dickerson Neutrophils/100 WBC (Bld) 52.5 % Normal 43.0-75.0 [facility] Comment on above: Performed By: #### C BC #### [facility] [address] [place] [address] Dr. Diann Dickerson Platelet mean volume (Bld) [Entitic vol] 10.3 fL Normal 9.5-13.5 [facility] Comment on above: Performed By: #### C BC #### [facility] [address] [place] [address] Dr. Diann Dickerson PLT 251 103/ul Normal 150-450 [facility] Comment on above: Performed By: #### C BC #### [facility] [address] [place] [address] Dr. Diann Dickerson RBC 4.31 106/ul Normal 4.20-5.40 [facility] Comment on above: Performed By: #### C BC #### [facility] [address] [place] [address] Dr. Diann Dickerson WBC 5.2 103/ul Normal 4.0-11.0 [facility] Comment on above: Performed By: #### C BC #### [facility] [address] [place] [address] Dr. Diann Dickerson ER URINE PROFILEon 3 Bilirubin Ql (U) Negative Normal NEGATIVE [facility] Comment on above: Performed By: #### P REGU, ERUR #### [facility] [address] [place] [address] Dr. Dainn Dickerson Clarity (U) CLEAR Normal CLEAR [facility] Comment on above: Performed By: #### P REGU, ERUR #### [facility] [address] [place] [address] Dr. Diann Dickerson Color (U) YELLOW Normal YELLOW [facility] Comment on above: Performed By: #### P REGU, ERUR #### [facility] [address] [place] [address] Dr. Diann MCCALLUM A micrscopic examination will be performed if indicated. Normal [facility] Comment on above: Performed By: #### P REGU, ERUR #### [facility] [address] [place] [address] Dr. Diann Dickerson Glucose Ql (U) Negative Normal NEGATIVE [facility] Comment on above: Performed By: #### P REGU, ERUR #### [facility] [address] [place] [address] Dr. Diann Dickerson Hemoglobin Ql (U) Negative Normal NEGATIVE [facility] Comment on above: Performed By: #### P REGU, ERUR #### [facility] [address] [place] [address] Dr. Diann Dickerson Ketones Ql (U) Negative Normal NEGATIVE [facility] Comment on above: Performed By: #### P REGU, ERUR #### [facility] [address] [place] [address] Dr. Diann Dickerson LEUKOCYTES Negative Normal NEGATIVE [facility] Comment on above: Performed By: #### P REGU, ERUR #### [facility] [address] [place] [address] Dr. Diann Dickerson Nitrite Ql (U) Negative Normal NEGATIVE [facility] Comment on above: Performed By: #### P REGU, ERUR #### [facility] [address] [place] [address] Dr. Diann Dickerson pH (U) 6.0 [pH] Normal 5-9 [facility] Comment on above: Performed By: #### P REGU, ERUR #### [facility] [address] [address] [address] Diann Dickerson SPEC GRAVITY 1.015 Normal 1.005-<=1.025 The [facility] Comment on above: Performed By: #### P REGU, ERUR #### [facility] [address] [address] [address] Diann Dickerson UA PROTEIN Negative Normal NEGATIVE/ TRACE [facility] Comment on above: Performed By: #### P REGU, ERUR #### [facility] [address] [address] [address] Diann Dickerson UR MICRO IND NOT INDICATED Normal [facility] Comment on above: Performed By: #### P REGU, ERUR #### [facility] [address] [place] [address] Dr. Diann Dickerson Urobilinogen Qn (U) 1.0 {Guy'U}/dL Normal 0.2 - 1. 0 [facility] Comment on above: Performed By: #### P REGU, ERUR #### [facility] [address] [place] [address] Dr. Diann Dickerson GROUP A STREP CULTUREon 09-24 S. pyogenes Ag Ql (Unsp spec) Culture Observations: NEGATIVE FOR GROUP A STREPTOCOCCUS. Normal [facility] Comment on above: Performed By: #### G RASTCX, SSCRN #### [facility] [address] [place] [address] Dr. Diann Dickerson URon 10-21-2022 , QUAL Negative Normal NEGATIVE The [facility] Comment on above: Performed By: #### P REGU, ERUR #### [facility] [address] [place] [address] Dr. Diann Dickerson PROF CHEM 8 (BAS METB)on Anion gap [Moles/Vol] 12.1 mmol/L Normal [facility] Comment on above: Performed By: #### C BC #### [facility] [address] [place] [address] Dr. Diann Dickerson Calcium [Mass/Vol] 9.3 mg/dL Normal 8.5-10.1 [facility] Comment on above: Performed By: #### C BC #### [facility] [address] [place] [address] Dr. Diann Dickerson Chloride [Moles/Vol] 101 mmol/L Normal 98-107 [facility] Comment on above: Performed By: #### C BC #### [facility] [address] [address] [address] Diann Dickerson CO2 [Moles/Vol] 28.3 mmol/L Normal 21.0-32.0 [facility] Comment on above: Performed By: #### C BC #### [facility] [address] [place] [address] Dr. Diann Dickerson Creatinine [Mass/Vol] 0.61 mg/dL Normal 0.55-1.02 [facility] Comment on above: Performed By: #### C BC #### [facility] [address] [place] [address] Dr. Diann Dickerson EGFR-AF ERITREAN >60 Normal >=60 [facility] Comment on above: Performed By: #### C BC #### [facility] [address] [place] [address] Dr. Diann Dickerson EGFR-NON AF ERITREAN >60 Normal >=60 [facility] Comment on above: Performed By: #### C BC #### [facility] [address] [place] [address] Dr. Diann Dickerson Glucose [Mass/Vol] 122 mg/dL Critically high 74-106 [facility] Comment on above: Performed By: #### C BC #### [facility] [address] [place] [address] Dr. Diann Dickerson Potassium [Moles/Vol] 3.4 mmol/L Critically low 3.5-5.1 [facility] Comment on above: Performed By: #### C BC #### [facility] [address] [place] [address] Dr. Diann Dickerson Sodium [Moles/Vol] 138 mmol/L Normal 136-145 [facility] Comment on above: Performed By: #### C BC #### [facility] [address] [address] [address] Diann Dickerson Urea nitrogen [Mass/Vol] 5.0 mg/dL Critically low 7.0-18.0 [facility] Comment on above: Performed By: #### C BC #### [facility] [address] [address] [address] Diann Dickerson Urea nitrogen/Creatinine [Mass ratio] 8.2 mg/mg Normal [facility] Comment on above: Performed By: #### C BC #### [facility] [address] [address] [address] Diann Dickerson STREPT SCREENon 10-21-2022 STREP SCREEN A Negative Normal NEGATIVE [facility] Comment on above: Performed By: #### G RASTCX, SSCRN #### [facility] [address] [place] [address] Dr. Diann Dickerson Covid-19 PCR (CVDTB)on 09-23 SARS-CoV-2 (COVID-19) RNA PREMA+probe Ql (Unsp spec) Not detected Normal NOT DETECTED [facility] Comment on above: Result Comment: This test is not yet approved or cleared by the [place] FDA. When there are no FDA-approved or cleared tests available, and other criteria are met, FDA can make tests available under an emergency access mechanism called an Emergency Use Authorization (EUA). The EUA for this test is supported by the [place] of Health and Human Service's (HHS's) declaration [...] SARS-CoV-2. Performed By: #### C VDTBH #### [facility] [address] [place] [address] Dr. Diann Dickerson INFLUENZA A AND B AGon 10-17 [facility] SEE BELOW Normal [facility] Comment on above: Result Comment: Nega tive for Flu A protein angiten. Infection due to Flu A cannot be ruled out. Flu A angiten in the sample may be below the detection limit of the test. Performed By: #### U ACSIND #### [facility] [address] [place] [address] Dr. Dian[address] Dick[address] [facility] Normal [facility] Comment on above: Result Comment: Nega tive for Flu B protein antigen. Infection due to Flu B cannot be ruled out. Flu B antigen in the sample may be below the detection limit of the test. Performed By: #### U ACSIND #### [facility] [address] [place] [address] Dr. Diann Dickerson INFLUENZA A AG Negative Normal NEGATIVE SEE COMMENT [facility] Comment on above: Performed By: #### U ACSIND #### [facility] [address] [place] [address] Dr. Diann Dickerson INFLUENZA B AG Negative Normal NEGATIVE SEE COMMENT [facility] Comment on above: Performed By: #### U ACSIND #### [facility] [address] [place] [address] Dr. Diann Dickerson CBC AUTO DIFFon 04-02-2022 BASO # 0.0 103/ul Normal 0.0-0.1 [facility] Comment on above: Performed By: #### C VDTBH #### [facility] [address] [place] [address] Dr. Diann Dickerson Basophils/100 WBC (Bld) 0.4 % Normal 0.2-2.0 [facility] Comment on above: Performed By: #### C VDTBH #### [facility] [address] [place] [address] Dr. Diann Dickerson EO # 0.1 103/ul Normal 0.0-0.7 [facility] Comment on above: Performed By: #### C VDTBH #### [facility] [address] [place] [address] Dr. Diann Dickerson Eosinophils/100 WBC (Bld) 0.6 % Critically low 0.9-7.0 [facility] Comment on above: Performed By: #### C VDTBH #### [facility] [address] [place] [address] Dr. Diann Dickerson Erythrocyte distribution width (RBC) [Ratio] 12.3 % Normal 11.0-15.0 [facility] Comment on above: Performed By: #### C VDTBH #### [facility] [address] [place] [address] Dr. Diann Dickerson Hematocrit (Bld) [Volume fraction] 35.5 % Critically low 36.0-48.0 [facility] Comment on above: Performed By: #### C VDTBH #### [facility] [address] [place] [address] Dr. Diann Dickerson Hemoglobin (Bld) [Mass/Vol] 12.3 g/dL Normal 12.0-16.0 [facility] Comment on above: Performed By: #### C VDTBH #### [facility] [address] [place] [address] Dr. Diann Dickerson IG # 0.07 10e3/ul Critically high 0.00-0.03 [facility] Comment on above: Performed By: #### C VDTBH #### [facility] [address] [place] [address] Dr. Diann Dickerson IG % 0.7 % Critically high 0.0-0.5 [facility] Comment on above: Performed By: #### C VDTBH #### [facility] [address] [place] [address] Dr. Diann Dickerson LYMPH # 1.3 103/ul Normal 1.2-3.8 [facility] Comment on above: Performed By: #### C VDTBH #### [facility] [address] [place] [address] Dr. Diann Dickerson Lymphocytes/100 WBC (Bld) 13.9 % Critically low 20.5-60.0 [facility] Comment on above: Performed By: #### C VDTBH #### [facility] [address] [place] [address] Dr. Diann Dickerson MANUAL DIFF REQ NO Normal [facility] Comment on above: Performed By: #### C VDTBH #### [facility] [address] [place] [address] Dr. Diann Dickerson MCH (RBC) [Entitic mass] 34.1 pg Critically high 26.7-34.0 [facility] Comment on above: Performed By: #### C VDTBH #### [facility] [address] [place] [address] Dr. Diann Dickerson MCHC (RBC) [Mass/Vol] 34.6 g/dL Normal 29.9-35.2 [facility] Comment on above: Performed By: #### C VDTBH #### [facility] [address] [place] [address] Dr. Diann Dickerson MCV (RBC) [Entitic vol] 98.3 fL Normal 81.0-99.0 [facility] Comment on above: Performed By: #### C VDTBH #### [facility] [address] [place] [address] Dr. Diann Dickerson MONO # 1.0 103/ul Critically high 0.3-0.8 [facility] Comment on above: Performed By: #### C VDTBH #### [facility] [address] [place] [address] Dr. Diann Dickerson Monocytes/100 WBC (Bld) 10.5 % Normal 1.7-12.0 [facility] Comment on above: Performed By: #### C VDTBH #### [facility] [address] [place] [address] Dr. Diann Dickerson NEUT # 6.9 103/ul Critically high 1.4-6.5 [facility] Comment on above: Performed By: #### C VDTBH #### [facility] [address] [place] [address] Dr. Diann Dickerson Neutrophils/100 WBC (Bld) 73.9 % Normal 43.0-75.0 [facility] Comment on above: Performed By: #### C VDTBH #### [facility] [address] [place] [address] Dr. Diann Dickerson Platelet mean volume (Bld) [Entitic vol] 10.8 fL Normal 9.5-13.5 [facility] Comment on above: Performed By: #### C VDTBH #### [facility] [address] [place] [address] Dr. Diann Dickerson PLT 177 103/ul Normal 150-450 [facility] Comment on above: Performed By: #### C VDTBH #### [facility] [address] [place] [address] Dr. Diann Dickerson RBC 3.61 106/ul Critically low 4.20-5.40 [facility] Comment on above: Performed By: #### C VDTBH #### [facility] [address] [place] [address] Dr. Diann Dickerson WBC 9.4 103/ul Normal 4.0-11.0 [facility] Comment on above: Performed By: #### C VDTBH #### [facility] [address] [place] [address] Dr. Diann Dickerson CBC AUTO DIFFon 04-01-2022 BASO # 0.0 103/ul Normal 0.0-0.1 [facility] Comment on above: Performed By: #### C BC #### [facility] [address] [place] [address] Dr. Diann Dickerson Basophils/100 WBC (Bld) 0.3 % Normal 0.2-2.0 [facility] Comment on above: Performed By: #### C BC #### [facility] [address] [place] [address] Dr. Diann Dickerson EO # 0.1 103/ul Normal 0.0-0.7 [facility] Comment on above: Performed By: #### C BC #### [facility] [address] [place] [address] Dr. Diann Dickerson Eosinophils/100 WBC (Bld) 0.6 % Critically low 0.9-7.0 [facility] Comment on above: Performed By: #### C BC #### [facility] [address] [address] [address] Diann Dickerson Erythrocyte distribution width (RBC) [Ratio] 12.4 % Normal 11.0-15.0 [facility] Comment on above: Performed By: #### C BC #### [facility] [address] [place] [address] Dr. Diann Dickerson Hematocrit (Bld) [Volume fraction] 38.0 % Normal 36.0-48.0 [facility] Comment on above: Performed By: #### C BC #### [facility] [address] [place] [address] Dr. Diann Dickerson Hemoglobin (Bld) [Mass/Vol] 13.1 g/dL Normal 12.0-16.0 [facility] Comment on above: Performed By: #### C BC #### [facility] [address] [place] [address] Dr. Diann Dickerson IG # 0.07 10e3/ul Critically high 0.00-0.03 [facility] Comment on above: Performed By: #### C BC #### [facility] [address] [place] [address] Dr. Diann Dickerson IG % 0.7 % Critically high 0.0-0.5 [facility] Comment on above: Performed By: #### C BC #### [facility] [address] [place] [address] Dr. Diann Dickerson LYMPH # 1.5 103/ul Normal 1.2-3.8 [facility] Comment on above: Performed By: #### C BC #### [facility] [address] [place] [address] Dr. Diann Dickerson Lymphocytes/100 WBC (Bld) 15.6 % Critically low 20.5-60.0 [facility] Comment on above: Performed By: #### C BC #### [facility] [address] [place] [address] Dr. Diann Dickerson MANUAL DIFF REQ NO Normal [facility] Comment on above: Performed By: #### C BC #### [facility] [address] [address] [address] Diann Dickerson MCH (RBC) [Entitic mass] 33.8 pg Normal 26.7-34.0 [facility] Comment on above: Performed By: #### C BC #### [facility] [address] [place] [address] Dr. Diann Dickerson MCHC (RBC) [Mass/Vol] 34.5 g/dL Normal 29.9-35.2 [facility] Comment on above: Performed By: #### C BC #### [facility] [address] [place] [address] Dr. Diann Dickerson MCV (RBC) [Entitic vol] 97.9 fL Normal 81.0-99.0 [facility] Comment on above: Performed By: #### C BC #### [facility] [address] [place] [address] Dr. Diann Dickerson MONO # 0.8 103/ul Normal 0.3-0.8 [facility] Comment on above: Performed By: #### C BC #### [facility] [address] [place] [address] Dr. Diann Dickerson Monocytes/100 WBC (Bld) 8.2 % Normal 1.7-12.0 [facility] Comment on above: Performed By: #### C BC #### [facility] [address] [place] [address] Dr. Diann Dickerson NEUT # 7.1 103/ul Critically high 1.4-6.5 [facility] Comment on above: Performed By: #### C BC #### [facility] [address] [place] [address] Dr. Diann Dickerson Neutrophils/100 WBC (Bld) 74.6 % Normal 43.0-75.0 [facility] Comment on above: Performed By: #### C BC #### [facility] [address] [place] [address] Dr. Diann Dickerson Platelet mean volume (Bld) [Entitic vol] 10.7 fL Normal 9.5-13.5 [facility] Comment on above: Performed By: #### C BC #### [facility] [address] [address] [address] Diann Dickerson PLT 172 103/ul Normal 150-450 [facility] Comment on above: Performed By: #### C BC #### [facility] [address] [address] [address] Diann Dickerson RBC 3.88 106/ul Critically low 4.20-5.40 [facility] Comment on above: Performed By: #### C BC #### [facility] [address] [address] [address] Diann Dickerson WBC 9.5 103/ul Normal 4.0-11.0 [facility] Comment on above: Performed By: #### C BC #### [facility] [address] [place] [address] Dr. Diann Dickerson Covid-19 PCR ([facility])on 03-22 SARS-CoV-2 (COVID-19) RNA PREMA+probe Ql (Unsp spec) Not detected Normal NOT DETECTED [facility] Comment on above: Result Comment: [...] for this test is supported by the [place] of Health and Human Service's declaration that [...] used). Performed By: #### C VDTBH #### [facility] [address] [place] [address] Dr. Diann Dickerson DRUG SCREEN RAPID (URINE)on 04-01-2022 AMP Negative Normal NEGATIVE [facility] Comment on above: Performed By: #### C BC #### [facility] [address] [place] [address] Dr. Diann Dickerson BAR Negative Normal NEGATIVE [facility] Comment on above: Performed By: #### C BC #### [facility] [address] [place] [address] Dr. Diann Dickerson BUP Negative Normal NEGATIVE [facility] Comment on above: Performed By: #### C BC #### [facility] [address] [place] [address] Dr. Diann Dickerson BZO Negative Normal NEGATIVE [facility] Comment on above: Performed By: #### C BC #### [facility] [address] [place] [address] Dr. Diann Dickerson KRYS Negative Normal NEGATIVE [facility] Comment on above: Performed By: #### C BC #### [facility] [address] [place] [address] Dr. Diann Dickerson CUT-OFFS SEE BELOW Normal [facility] Comment on above: Result Comment: [...] ng/mL Performed By: #### C BC #### [facility] [address] [place] [address] Dr. Diann Dickerson DRUG CUT HEADER DRUG CLASS TEST SYSTEM CUT-OFF CONCENTRATIONS ARE FOLLOWS: Normal [facility] Comment on above: Performed By: #### C BC #### [facility] [address] [place] [address] Dr. Diann Dickerson mAMP Negative Normal NEGATIVE [facility] Comment on above: Performed By: #### C BC #### [facility] [address] [address] [address] Diann Dickerson MTD Negative Normal NEGATIVE [facility] Comment on above: Performed By: #### C BC #### [facility] [address] [address] [address] Diann Dickerson OPI Negative Normal NEGATIVE [facility] Comment on above: Performed By: #### C BC #### [facility] [address] [address] [address] Diann Dickerson OXY Negative Normal NEGATIVE [facility] Comment on above: Performed By: #### C BC #### [facility] [address] [place] [address] Dr. Diann Dickerson PCP Negative Normal NEGATIVE [facility] Comment on above: Performed By: #### C BC #### [facility] [address] [place] [address] Dr. Diann Dickerson PPX Negative Normal NEGATIVE [facility] Comment on above: Performed By: #### C BC #### [facility] [address] [place] [address] Dr. Diann Dickerson TCA Negative Normal NEGATIVE [facility] Comment on above: Performed By: #### C BC #### [facility] [address] [place] [address] Dr. Diann Dickerson THC Negative Normal NEGATIVE [facility] Comment on above: Performed By: #### C BC #### [facility] [address] [place] [address] Dr. Diann Dickerson GROUP B STREP CULTUREon [...] F Tetracycline >=16 R F Normal [facility] Comment on above: Performed By: #### C #### [facility] [address] [place] [address] Dr. Diann Dickerson US PREG GROWTHon 03-04-2022 [...] DEL RIO Date: 2022-03-04 17:33 Normal [facility] AMYLASEon 01-18-2022 Amylase [Catalytic activity/Vol] 30 U/L Normal 25-115 [facility] Comment on above: Performed By: #### C VDTBH #### [facility] [address] [place] [address] Dr. Diann Dickerson BUNon 01-18-2022 Urea nitrogen [Mass/Vol] 7.0 mg/dL Normal 7.0-18.0 [facility] Comment on above: Performed By: #### C VDTBH #### [facility] [address] [place] [address] Dr. Diann Dickerson CBC AUTO DIFFon 01-18-2022 BASO # 0.0 103/ul Normal 0.0-0.1 [facility] Comment on above: Performed By: #### C VDTBH #### [facility] [address] [place] [address] Dr. Diann Dickerson Basophils/100 WBC (Bld) 0.3 % Normal 0.2-2.0 [facility] Comment on above: Performed By: #### C VDTBH #### [facility] [address] [place] [address] Dr. Diann Dickerson EO # 0.1 103/ul Normal 0.0-0.7 [facility] Comment on above: Performed By: #### C VDTBH #### [facility] [address] [place] [address] Dr. Diann Dickerson Eosinophils/100 WBC (Bld) 0.6 % Critically low 0.9-7.0 [facility] Comment on above: Performed By: #### C VDTBH #### [facility] [address] [place] [address] Dr. Diann Dickerson Erythrocyte distribution width (RBC) [Ratio] 12.6 % Normal 11.0-15.0 [facility] Comment on above: Performed By: #### C VDTBH #### [facility] [address] [place] [address] Dr. Diann Dickerson Hematocrit (Bld) [Volume fraction] 36.8 % Normal 36.0-48.0 [facility] Comment on above: Performed By: #### C VDTBH #### [facility] [address] [place] [address] Dr. Diann Dickerson Hemoglobin (Bld) [Mass/Vol] 12.6 g/dL Normal 12.0-16.0 [facility] Comment on above: Performed By: #### C VDTBH #### [facility] [address] [place] [address] Dr. Diann Dickerson IG # 0.06 10e3/ul Critically high 0.00-0.03 [facility] Comment on above: Performed By: #### C VDTBH #### [facility] [address] [place] [address] Dr. Diann Dickerson IG % 0.7 % Critically high 0.0-0.5 [facility] Comment on above: Performed By: #### C VDTBH #### [facility] [address] [address] [address] Diann Dickerson LYMPH # 0.7 103/ul Critically low 1.2-3.8 [facility] Comment on above: Performed By: #### C VDTBH #### [facility] [address] [address] [address] Diann Dickerson Lymphocytes/100 WBC (Bld) 7.6 % Critically low 20.5-60.0 [facility] Comment on above: Performed By: #### C VDTBH #### [facility] [address] [address] [address] Diann Dickerson MANUAL DIFF REQ NO Normal [facility] Comment on above: Performed By: #### C VDTBH #### [facility] [address] [place] [address] Dr. Diann Dickerson MCH (RBC) [Entitic mass] 33.3 pg Normal 26.7-34.0 [facility] Comment on above: Performed By: #### C VDTBH #### [facility] [address] [address] [address] Diann Dickerson MCHC (RBC) [Mass/Vol] 34.2 g/dL Normal 29.9-35.2 [facility] Comment on above: Performed By: #### C VDTBH #### [facility] [address] [address] [address] Diann Dickerson MCV (RBC) [Entitic vol] 97.4 fL Normal 81.0-99.0 [facility] Comment on above: Performed By: #### C VDTBH #### [facility] [address] [address] [address] Diann Dickerson MONO # 0.5 103/ul Normal 0.3-0.8 [facility] Comment on above: Performed By: #### C VDTBH #### [facility] [address] [address] [address] Diann Dickerson Monocytes/100 WBC (Bld) 5.3 % Normal 1.7-12.0 [facility] Comment on above: Performed By: #### C VDTBH #### [facility] [address] [address] [address] Diann Dickerson NEUT # 7.6 103/ul Critically high 1.4-6.5 [facility] Comment on above: Performed By: #### C VDTBH #### [facility] [address] [address] [address] Diann Dickerson Neutrophils/100 WBC (Bld) 85.5 % Critically high 43.0-75.0 [facility] Comment on above: Performed By: #### C VDTBH #### [facility] [address] [address] [address] Diann Dickerson Platelet mean volume (Bld) [Entitic vol] 10.2 fL Normal 9.5-13.5 [facility] Comment on above: Performed By: #### C VDTBH #### [facility] [address] [address] [address] Diann Dickerson PLT 198 103/ul Normal 150-450 [facility] Comment on above: Performed By: #### C VDTBH #### [facility] [address] [place] [address] Dr. Diann Dickerson RBC 3.78 106/ul Critically low 4.20-5.40 [facility] Comment on above: Performed By: #### C VDTBH #### [facility] [address] [place] [address] Dr. Diann Dickerson WBC 8.9 103/ul Normal 4.0-11.0 [facility] Comment on above: Performed By: #### C VDTBH #### [facility] [address] [address] [address] Diann Dickerson CREATININEon 01-18-2022 Creatinine [Mass/Vol] 0.53 mg/dL Critically low 0.55-1.02 [facility] Comment on above: Performed By: #### C VDTBH #### [facility] [address] [place] [address] Dr. Diann Dickerson EGFR-AF ERITREAN >60 Normal >=60 [facility] Comment on above: Performed By: #### C VDTBH #### [facility] [address] [place] [address] Dr. Diann Dickerson EGFR-NON AF ERITREAN >60 Normal >=60 [facility] Comment on above: Performed By: #### C VDTBH #### [facility] [address] [place] [address] Dr. Diann Dickerson ELECTROLYTESon 01-18-2022 Anion gap [Moles/Vol] 9.6 mmol/L Normal [facility] Comment on above: Performed By: #### C VDTBH #### [facility] [address] [place] [address] Dr. Diann Dickerson Chloride [Moles/Vol] 106 mmol/L Normal 98-107 [facility] Comment on above: Performed By: #### C VDTBH #### [facility] [address] [place] [address] Dr. Diann Dickerson CO2 [Moles/Vol] 23.5 mmol/L Normal 21.0-32.0 [facility] Comment on above: Performed By: #### C VDTBH #### [facility] [address] [place] [address] Dr. Diann Dickerson Potassium [Moles/Vol] 4.1 mmol/L Normal 3.5-5.1 [facility] Comment on above: Performed By: #### C VDTBH #### [facility] [address] [place] [address] Dr. Diann Dickerson Sodium [Moles/Vol] 135 mmol/L Critically low 136-145 [facility] Comment on above: Performed By: #### C VDTBH #### [facility] [address] [place] [address] Dr. Diann Metcalf 01-18-2022 AST [Catalytic activity/Vol] 15 U/L Normal 15-37 [facility] Comment on above: Performed By: #### C VDTBH #### [facility] [address] [place] [address] Dr. Diann Carrasquillo 01-18-2022 ALT [Catalytic activity/Vol] 19 U/L Normal 14-59 [facility] Comment on above: Performed By: #### C VDTBH #### [facility] [address] [place] [address] Dr. Diann Dickerson TSHon 01-18-2022 TSH 1.409 uIU/mL Normal 0.470-4.680 [facility] Comment on above: Performed By: #### C VDTBH #### [facility] [address] [place] [address] Dr. Diann Dickerson TSH RANGE SEE BELOW Normal [facility] Comment on above: Result Comment: <0.3 4 UIU/ml HYPERTHYROID 0.34-5.60 UIU/ml EUTHYROID >5.60 UIU/ml HYPOTHYROID Performed By: #### C VDTBH #### [facility] [address] [place] [address] Dr. Diann Dickerson UA (CLEAN/CATCH) MOUNTER/MICRO I F IND.on 01-18-2022 Bilirubin Ql (U) Negative Normal NEGATIVE [facility] Comment on above: Performed By: #### U ACSIND #### [facility] [address] [place] [address] Dr. Diann Dickerson Clarity (U) CLEAR Normal CLEAR [facility] Comment on above: Performed By: #### U ACSIND #### [facility] [address] [place] [address] Dr. Diann Dickerson Color (U) YELLOW Normal YELLOW [facility] Comment on above: Performed By: #### U ACSIND #### [facility] [address] [place] [address] Dr. Diann Dickerson Glucose Ql (U) Negative Normal NEGATIVE [facility] Comment on above: Performed By: #### U ACSIND #### [facility] [address] [place] [address] Dr. Diann Dickerson Hemoglobin Ql (U) Negative Normal NEGATIVE [facility] Comment on above: Performed By: #### U ACSIND #### [facility] [address] [place] [address] Dr. Diann Dickerson Ketones Ql (U) Negative Normal NEGATIVE [facility] Comment on above: Performed By: #### U ACSIND #### [facility] [address] [place] [address] Dr. Diann Dickerson LEUKOCYTES Negative Normal NEGATIVE [facility] Comment on above: Performed By: #### U ACSIND #### [facility] [address] [place] [address] Dr. Diann Dickerson Nitrite Ql (U) Negative Normal NEGATIVE [facility] Comment on above: Performed By: #### U ACSIND #### [facility] [address] [place] [address] Dr. Diann Dickerson pH (U) 8.5 [pH] Normal 5-9 [facility] Comment on above: Performed By: #### U ACSIND #### [facility] [address] [place] [address] Dr. Diann Dickerson SPEC GRAVITY 1.015 Normal 1.005-<=1.025 [facility] Comment on above: Performed By: #### U ACSIND #### [facility] [address] [place] [address] Dr. Diann Dickerson UA PROTEIN Negative Normal NEGATIVE/ TRACE [facility] Comment on above: Performed By: #### U ACSIND #### [facility] [address] [place] [address] Dr. Diann Dickerson UR MICRO IND NOT INDICATED Normal [facility] Comment on above: Performed By: #### U ACSIND #### [facility] [address] [place] [address] Dr. Diann Dickerson Urobilinogen Qn (U) 0.2 {Guy'U}/dL Normal 0.2 - 1. 0 [facility] Comment on above: Performed By: #### U ACSIND #### [facility] [address] [place] [address] Dr. Diann Dickerson US PREG BIOPHY W [...] MARBIN MCKEON Date: 2022-01-18 10:45 Normal [facility] US PREG CERVICAL LENGTHon US PREG CERVICAL LENGTH EXAMINATION: US PREG CERVICAL LENGTH HISTORY: Nausea and vomiting COMPARISON: 12/31/2021 FINDINGS: position: Cephalic Heart rate: 141 bpm Cervix: 4.7 cm, closed Clinical age: 20 weeks 5 days Clinical ANGELA: 04/07/2022 IMPRESSION: Closed cervix measuring 4.7 cm in length Electronically authenticated by: MARBIN MCKEON Date: 2022-01-18 10:46 Normal [facility] CULTURE URINEon 12-31-2021 CULTURE URINE Culture Observations : No growth Normal [facility] Comment on above: Performed By: #### C BC #### [facility] [address] [place] [address] Dr. Diann Dickerson US PREG AMNIOTIC FLUID [...] JAYSHREE DEL RIO Date: 2021-12-31 12:41 Normal [facility] GLUCOSE - 1HRon 12-17-2021 Glucose [Mass/Vol] 134 mg/dL Critically high 74-106 [facility] Comment on above: Performed By: #### G LU1HR #### [facility] [address] [place] [address] Dr. Diann Dickerson HEMOGRAM AND PLATELon 2021 Hematocrit (Bld) [Volume fraction] 36.7 % Normal 36.0-48.0 [facility] Comment on above: Performed By: #### C BC #### [facility] [address] [place] [address] Dr. Diann Dickerson Hemoglobin (Bld) [Mass/Vol] 12.5 g/dL Normal 12.0-16.0 [facility] Comment on above: Performed By: #### C BC #### [facility] [address] [place] [address] Dr. Diann Dickerson MCH (RBC) [Entitic mass] 33.2 pg Normal 26.7-34.0 [facility] Comment on above: Performed By: #### C BC #### [facility] [address] [place] [address] Dr. Diann Dickerson MCHC (RBC) [Mass/Vol] 34.1 g/dL Normal 29.9-35.2 [facility] Comment on above: Performed By: #### C BC #### [facility] [address] [place] [address] Dr. Diann Dickerson MCV (RBC) [Entitic vol] 97.6 fL Normal 81.0-99.0 [facility] Comment on above: Performed By: #### C BC #### [facility] [address] [place] [address] Dr. Diann Dickerson PLT 207 103/ul Normal 150-450 [facility] Comment on above: Performed By: #### C BC #### [facility] [address] [place] [address] Dr. Diann Dickerson RBC 3.76 106/ul Critically low 4.20-5.40 [facility] Comment on above: Performed By: #### C BC #### [facility] [address] [place] [address] Dr. Diann Dickerson WBC 6.3 103/ul Normal 4.0-11.0 [facility] Comment on above: Performed By: #### C BC #### [facility] [address] [place] [address] Dr. Diann Dickerson US PREG ANATOMY SINGLEon [...] FL: 3.4 cm 20 weeks 5 days EFW:[id number]; FL/AC: [id number] [place]/BPD: [id number] HC/AC: 1.131520 GESTATIONAL AGE: Age by EDC: 20 weeks 1 day ANGELA by EDC: 04/07/2022 Age by current US: 20 weeks 4 day ANGELA by current US: 04/04/2022 IMPRESSION: Normal anatomy scan *Reference: [employer] Practice Guideline for the performance of Obstetric Ultrasound Examinations, June 22, 2007. Electronically authenticated by: MARBIN MCKEON Date: 2021-11-20 07:34 Normal [facility] Vital Signs Date Time Vital Sign Value Performing Clinician Dipesh hooks 05-31-2025 08:50-0400 Body height 175.3 cm code[employer]ender Work Phone: [facility] 05-31-2025 08:50-0400 Body mass index (BMI) [Ratio] 27.76 kg/m2 [employer] Phone: [facility] 05-31-2025 08:50-0400 Body weight 85.28 kg [employer] Phone: [facility] 05-31-2025 08:50-0400 Diastolic blood pressure 74 mm[Hg] Giulia Javan DO Work Phone: [facility] 05-31-2025 08:50-0400 Systolic blood pressure 122 mm[Hg] Giulia Javan DO Work Phone: [facility] 04-06-2025 13:26-0400 Body mass index (BMI) [Ratio] 31.01 kg/m2 Giulia Javan DO Work Phone: [facility] 04-06-2025 13:26-0400 Body weight 95.25 kg Giulia Javan DO Work Phone: [facility] 04-06-2025 13:26-0400 Diastolic blood pressure 70 mm[Hg] Giulia Javan DO Work Phone: [facility] 04-06-2025 13:26-0400 Systolic blood pressure 122 mm[Hg] Giulia Javan DO Work Phone: [facility] 03-30-2025 15:54-0400 Body mass index (BMI) [Ratio] 30.72 kg/m2 Giulia Javan DO Work Phone: [facility] 03-30-2025 15:54-0400 Body weight 94.35 kg Giulia Javan DO Work Phone: [facility] 03-30-2025 15:54-0400 Diastolic blood pressure 72 mm[Hg] Giulia Javan DO Work Phone: [facility] 03-30-2025 15:54-0400 Systolic blood pressure 118 mm[Hg] Giulia Javan DO Work Phone: [facility] 03-23-2025 10:38-0400 Body mass index (BMI) [Ratio] 30.42 kg/m2 Giulia Javan DO Work Phone: [facility] 03-23-2025 10:38-0400 Body weight 93.44 kg Giulia Javan DO Work Phone: [facility] 03-23-2025 10:38-0400 Diastolic blood pressure 78 mm[Hg] Giulia Javan DO Work Phone: [facility] 03-23-2025 10:38-0400 Systolic blood pressure 116 mm[Hg] Giulia Javan DO Work Phone: [facility] 03-16-2025 09:24-0400 Body mass index (BMI) [Ratio] 30.57 kg/m2 Margret Horton PA Work Phone: [facility] 03-16-2025 09:24-0400 Body weight 93.89 kg Margret Sol PA Work Phone: [facility] 03-16-2025 09:24-0400 Diastolic blood pressure 80 mm[Hg] Margret Horton PA Work Phone: [facility] 03-16-2025 09:24-0400 Systolic blood pressure 120 mm[Hg] Margret Tinocoey PA Work Phone: [facility] 03-09-2025 11:20-0400 Body mass index (BMI) [Ratio] 30.42 kg/m2 Giulia Javan DO Work Phone: [facility] 03-09-2025 11:20-0400 Body weight 93.44 kg Giulia Javan DO Work Phone: [facility] 03-09-2025 11:20-0400 Diastolic blood pressure 70 mm[Hg] Giulia Javan DO Work Phone: [facility] 03-09-2025 11:20-0400 Systolic blood pressure 120 mm[Hg] Giulia Javan DO Work Phone: [facility] 02-23-2025 15:28-0400 Body mass index (BMI) [Ratio] 29.98 kg/m2 Giulia Javan DO Work Phone: [facility] 02-23-2025 15:28-0400 Body weight 92.08 kg Giulia Javan DO Work Phone: [facility] 02-23-2025 15:28-0400 Diastolic blood pressure 72 mm[Hg] Giulia Javan DO Work Phone: [facility] 02-23-2025 15:28-0400 Systolic blood pressure 124 mm[Hg] Giulia Javan DO Work Phone: [facility] 02-09-2025 10:48-0400 Body mass index (BMI) [Ratio] 29.09 kg/m2 Giulia Javan DO Work Phone: [facility] 02-09-2025 10:48-0400 Body weight 89.36 kg Giulia Javan DO Work Phone: [facility] 02-09-2025 10:48-0400 Diastolic blood pressure 70 mm[Hg] Giulia Javan DO Work Phone: [facility] 02-09-2025 10:48-0400 Systolic blood pressure 112 mm[Hg] Giulia Javan DO Work Phone: [facility] 01-19-2025 16:28-0400 Body mass index (BMI) [Ratio] 28.8 kg/m2 Giulia Javan DO Work Phone: [facility] 01-19-2025 16:28-0400 Body weight 88.45 kg Giuila Javan DO Work Phone: [facility] 01-19-2025 16:28-0400 Diastolic blood pressure 70 mm[Hg] Giulia Javan DO Work Phone: [facility] 01-19-2025 16:28-0400 Systolic blood pressure 111 mm[Hg] Giulia Javan DO Work Phone: [facility] 12-28-2024 13:17-0400 Body mass index (BMI) [Ratio] 28.21 kg/m2 Giulia Javan DO Work Phone: [facility] 12-28-2024 13:17-0400 Body weight 86.64 kg Giulia Javan DO Work Phone: [facility] 12-28-2024 13:17-0400 Diastolic blood pressure 58 mm[Hg] Giulia Javan DO Work Phone: [facility] 12-28-2024 13:17-0400 Systolic blood pressure 108 mm[Hg] Giulia Javan DO Work Phone: [facility] 11-17-2024 09:19-0500 Body mass index (BMI) [Ratio] 27.73 kg/m2 Margret Horton PA Work Phone: [facility] 11-17-2024 09:19-0500 Body weight 85.19 kg Margret Horton PA Work Phone: [facility] 11-17-2024 09:19-0500 Diastolic blood pressure 70 mm[Hg] Margret Tinocoey PA Work Phone: [facility] 11-17-2024 09:19-0500 Systolic blood pressure 110 mm[Hg] Margret Tinocoey PA Work Phone: [facility] 11-03-2024 10:57-0500 Body mass index (BMI) [Ratio] 27.65 kg/m2 Giulia Javan DO Work Phone: [facility] 11-03-2024 10:57-0500 Body weight 84.94 kg Giulia Javan DO Work Phone: [facility] 10-06-2024 16:40-0500 Body mass index (BMI) [Ratio] 27.59 kg/m2 Giulia Javan DO Work Phone: [facility] 10-06-2024 16:40-0500 Body weight 84.73 kg Giulia Javan DO Work Phone: [facility] 10-06-2024 16:40-0500 Diastolic blood pressure 68 mm[Hg] Giulia Javan DO Work Phone: [facility] 10-06-2024 16:40-0500 Systolic blood pressure 102 mm[Hg] Giulia Javan DO Work Phone: [facility] 09-10-2024 08:45-0500 Body mass index (BMI) [Ratio] 27.32 kg/m2 [facility] 09-10-2024 08:45-0500 Body weight 83.92 kg [facility] 09-10-2024 08:45-0500 Diastolic blood pressure 70 mm[Hg] [facility] 09-10-2024 08:45-0500 Systolic blood pressure 118 mm[Hg] [facility] 08-16-2024 09:15-0500 Body height 175.3 cm Margret PETER Work Phone: [facility] 08-16-2024 09:15-0500 Body mass index (BMI) [Ratio] 27.32 kg/m2 Margret Horton PA Work Phone: [facility] 08-16-2024 09:15-0500 Body weight 83.92 kg Margret Exeter PA Work Phone: [facility] 08-16-2024 09:15-0500 Diastolic blood pressure 68 mm[Hg] Margret Horton PA Work Phone: [facility] 08-16-2024 09:15-0500 Systolic blood pressure 116 mm[Hg] Margret Horton PA Work Phone: [facility] Encounters Encounter Date Encounter Type Care Provider Facility Start: 05-31-2025 End: 05-31-2025 care visit Giulia Javan DO Work Phone: [facility] Comment on above: 6 weeks f ollow-up ([facility]) Start: 04-08-2025 End: 04-08-2025 Clinisync Result Encounter [...] Comment on above: Third trimester preg nate ([facility]); 38 weeks gestation of ([facility]) Start: 04-06-2025 End: 04-06-2025 Bamboo flowsheet Giulia Javan DO Work Phone: [facility] OB Start: 04-06-2025 End: 04-06-2025 Bamboo flowsheet Giulia Javan DO Work Phone: [facility] Start: 04-06-2025 End: 04-06-2025 ambulatory GIULIA JAVAN Not Available Start: 03-30-2025 End: 03-30-2025 flow sheet Giulia Javan DO Work Phone: [facility] Comment on above: Third trimester preg nate ([facility]); 37 weeks gestation of ([facility]) Start: 03-30-2025 End: 03-30-2025 ambulatory GIULIA JAVAN Not Available Start: 03-30-2025 End: 03-30-2025 Bamboo flowsheet Giulia Javan DO Work Phone: [facility] Start: 03-30-2025 End: 03-30-2025 Bamboo flowsheet Giulia Javan DO Work Phone: [facility] Start: 03-23-2025 End: 03-23-2025 flow sheet Giulia Javan DO Work Phone: [facility] Comment on above: Third trimester preg nate ([facility]); 36 weeks gestation of ([facility]) Start: 03-23-2025 End: 03-23-2025 ambulatory GIULIA JAVAN Not Available Start: 03-16-2025 End: 03-16-2025 Bamboo flowsheet Margret PETER Work Phone: [facility] Start: 03-16-2025 End: 03-16-2025 Bamboo flowsheet Margret PETER Work Phone: [facility] Start: 03-16-2025 End: 03-16-2025 flow sheet Margret PETER Work Phone: [facility] Comment on above: Third trimester preg nate ([facility]); 36 weeks gestation of ([facility]) Start: 03-16-2025 End: 03-16-2025 ambulatory MARGRET HORTON Not Available Start: 03-09-2025 End: 03-09-2025 flow sheet Giulia Javan DO Work Phone: [facility] Comment on above: 34 weeks gestation o f ([facility]); Third trimester ([facility]) Start: 03-09-2025 End: 03-09-2025 ambulatory GIULIA JAVAN [...] Not Available Start: 01-28-2025 End: 01-28-2025 ambulatory [facility] Start: 01-19-2025 End: 01-19-2025 ambulatory GIULIA JAVAN [...] Start: 11-17-2024 End: 11-17-2024 Bamboo flowsheet Margret Exeter PA Work Phone: [facility] Start: 11-17-2024 End: 11-22-2024 Bamboo flowsheet Margret Horton PA Work Phone: [facility] Start: [...] 11-09-2024 End: 11-09-2024 Patient encounter procedure [facility] Nurse [facility] Comment on above: Screening for lipoid disorders; Screening for diabetes mellitus Start: 11-03-2024 End: 11-03-2024 ambulatory GIULIA JAVAN Not Available Start: 11-03-2024 End: 11-03-2024 flow sheet Giulia Javan DO Work Phone: [facility] Comment on above: Second trimester [...] Work Phone: [facility] Unsolicited Start: 10-01-2024 End: 10-01-2024 Clinisync Result Encounter Giulia Javan DO Work Phone: [facility] Unsolicited Start: 09-10-2024 End: 09-10-2024 ambulatory GIULIA JAVAN Not Available Start: 09-10-2024 End: 09-10-2024 Patient encounter procedure [facility] Javan Nurse [facility] Comment on above: Missed menses; , unspecified gestational age; Encounter for supervision of normal first in first trimester; 9 weeks gestation of Start: 08-16-2024 End: 08-16-2024 Bamboo flowsheet Margret PETER Work Phone: [facility] Start: 08-16-2024 End: 08-16-2024 Bamboo flowsheet Margret PETER Work Phone: [facility] Start: 08-16-2024 End: 08-16-2024 ambulatory MARGRET HORTON Not Available Start: 08-16-2024 End: 08-16-2024 Office outpatient visit 15 minutes Margret PETER Work Phone: [facility] Comment on above: Annual wellness visi t (Primary Dx) Start: 08-16-2024 End: 08-16-2024 Patient encounter procedure Margret Horton PA Work Phone: [facility] Work Phone: Start: [...] hin layer prep mnl screen Margret Horton PA Work Phone: Start: 04-01-2022 Delivery of [...] Screening for malign ant neoplasm of cervix [facility] Start: 11-17-2025 Screening for malign ant neoplasm of cervix [facility] Start: 05-23-2025 Influenza vaccination [facility] Start: 05-19-2025 End: 05-19-2025 ambulatory 05/19/2025 11:10 AM EDT Visit [facility] [address] [place] [id number] Giulia Edouard DO [address] [place] [address] [facility] Start: 04-06-2025 End: 04-06-2025 Patient encounter procedure [facility] Comment on above: Arrived Start: 03-30-2025 End: 03-30-2025 Patient encounter procedure [facility] Comment on above: Arrived Start: 03-23-2025 End: 03-23-2025 Patient encounter procedure 03/23/2025 4:00 PM EDT Routine [facility] [address] [place] [address] Giulia Edouard, [address] [place] [address] [facility] Start: 03-16-2025 End: 03-16-2026 CULTURE, GROUP B STREP WITH SUSCEPTIBLITY CULTURE, GROUP B STREP WITH SUSCEPTIBLITY Lab Routine Third trimester ([facility]) Expected: 03/16/2025, Expires: 03/16/2026 [facility] Work Phone: Comment on above: Expected: 03/16/2025 , Expires: 03/16/2026 Start: 03-16-2025 End: 03-16-2025 Patient encounter procedure 03/16/2025 10:00 AM EDT Routine [facility] [address] [place] [address] Margret Horton PA [address] [facility] [address] [place] [address] Arrived [facility] Comment on above: Arrived Start: 03-09-2025 End: 03-09-2025 Patient encounter procedure 03/09/2025 4:00 PM EDT Routine [facility] [address] [place] [phone] Giulia Edouard, [address] [place] [address] [facility] Start: 02-23-2025 End: 02-23-2025 [...] 11:00 AM EDT Routine [facility] [address] [place], [place] [address] [address] Giulia Edouard, DO [address] [place], [place] [address] [address] Arrived [facility] Comment on above: Arrived Start: 02-03-2025 End: 02-03-2025 Professional / ancillary services management 02/03/2025 8:00 AM EDT Ancillary Procedure [facility] [address] [place], [place] [address] [address] [facility] Start: 01-25-2025 End: 01-25-2025 Patient encounter procedure 01/25/2025 9:10 AM EDT Routine [facility] [address] [place], [place] [address] [address] Giulia Edouard, DO [address] [place], [place] [address] [address] [facility] Start: 12-28-2024 End: 12-28-2024 Patient encounter procedure 12/28/2024 3:00 PM EDT Routine [facility] [place] [address] Giulia Edouard, DO [address] [place], [place] [address] [address] 24 weeks gestation of ; Second trimester [...] mellitus screening Expected: 12/28/2024 (Approximate), Expires: 12/28/2025 [facility] Comment on above: Expected: 12/28/2024 (Approximate), Expires: 12/28/2025 Start: 12-28-2024 End: 04-29-2025 US for US OB follow up transabdominal approach Imaging Routine Excessive growth affecting management of , antepartum, single or unspecified fetus Expected: 12/28/2024, Expires: 04/29/2025 [facility] Comment on above: Expected: 12/28/2024 , Expires: 04/29/2025 Start: 11-29-2024 End: 11-29-2024 Patient encounter procedure [facility] Start: 11-29-2024 End: 11-29-2024 Professional / ancillary services management 11/29/2024 8:00 AM EDT Ancillary Procedure [facility] [address] [place] [address] [facility] Start: 11-03-2024 End: 11-03-2024 Patient encounter procedure 11/03/2024 3:40 PM EST Routine [facility] [address] [place] [place] [address] Giulia Edouard, [address] [facility] [place] [address] [facility] Start: 11-03-2024 End: 12-01-2024 Alpha fetoprotein, maternal Alpha fetoprotein, maternal Lab Routine Need for maternal serum alpha-protein (MSAFP) screening Expected: 11/03/2024 (Approximate), Expires: 12/01/2024 [facility] Comment on above: Expected: 11/03/2024 (Approximate), Expires: 12/01/2024 Start: 11-03-2024 End: 11-03-2025 US for US OB 14+ weeks anatomy scan Imaging Routine Screening, , for anatomic survey Expected: 11/03/2024 (Approximate), Expires: 11/03/2025 [facility] Work Phone: Comment on above: Expected: 11/03/2024 (Approximate), Expires: 11/03/2025 Start: 2024 Screening for malign ant neoplasm of cervix HPV/Cotest [facility] Start: 10-06-2024 End: 10-06-2024 Patient encounter procedure 10/06/2024 10:50 AM EST Routine [facility] [address] [place] [address] Giulia Edouard, DO [address] [facility] [place] [address] [facility] Start: 09-10-2024 End: 09-10-2025 ABO/Rh ABO/Rh Lab Routine Missed menses , unspecified gestational age Expected: 09/10/2024 (Approximate), Expires: 09/10/2025 [facility] Comment on above: Expected: 09/10/2024 (Approximate), Expires: 09/10/2025 Start: 09-10-2024 End: 09-10-2025 Blood type and Indirect antibody screen panel - Blood Type and screen Lab Routine Missed menses , unspecified gestational age Expected: 09/10/2024 (Approximate), Expires: 09/10/2025 [facility] Work Phone: Comment on above: Expected: 09/10/2024 (Approximate), Expires: 09/10/2025 Start: 09-10-2024 End: 09-10-2025 Drugs of abuse panel - Urine by Screen method Rapid drug screen, urine Lab Routine , unspecified gestational age Encounter for supervision of normal first in first trimester Expected: 09/10/2024 (Approximate), Expires: 09/10/2025 [facility] Comment on above: Expected: 09/10/2024 (Approximate), Expires: 09/10/2025 Start: 09-10-2024 End: 09-10-2025 US Pelvis transvaginal US OB transvaginal Imaging Routine Missed menses Expected: 09/10/2024 (Approximate), Expires: 09/10/2025 [facility] Comment on above: Expected: 09/10/2024 (Approximate), Expires: 09/10/2025 Start: 09-10-2024 End: 09-10-2024 Patient encounter procedure 09/10/2024 8:20 AM EST Routine [facility] [address] [place] [place] [address] [facility] Start: 09-10-2024 End: 09-10-2024 Professional / ancillary services management 09/10/2024 8:00 AM EST Ancillary Procedure [facility] [address] [place] [address] [facility] Start: 08-16-2024 End: 08-16-2025 Lipid 1996 panel - Serum or Plasma Lipid panel Lab Routine Annual wellness visit Expected: 08/16/2024 (Approximate), Expires: 08/16/2025 [facility] Comment on above: Expected: 08/16/2024 (Approximate), Expires: 08/16/2025 Start: 05-23-2024 Influenza vaccination Influenza Vacc ine (#1) [facility] Bacteria identified in Urine by Culture Urine culture Microbiology Routine Missed menses Ordered: 09/10/2024 [facility] Comment on above: Ordered: 09/10/2024 CBC W Auto Different ial panel - Blood CBC and differential Lab Routine Annual wellness visit Ordered: 08/16/2024 [facility] Comment on above: Ordered: 08/16/2024 CBC W Auto Different ial panel - Blood CBC and differential Lab Routine Missed menses , unspecified gestational age Ordered: 09/10/2024 [facility] Comment on above: Ordered: 09/10/2024 CHLAMYDIA TRACHOMATI S (GENITO/STI) CHLAMYDIA TRACHOMATIS (GENITO/STI) Lab Routine Vaginal discharge Ordered: 11/17/2024 [facility] Comment on above: Ordered: 11/17/2024 Comprehensive metabo lic 2000 panel - Serum or Plasma Comprehensive metabolic panel Lab Routine Annual wellness visit Ordered: 08/16/2024 [facility] Comment on above: Ordered: 08/16/2024 Cytology Cervical or vaginal smear or scraping study Pap Smear Pathology and Cytology Routine Well woman exam with routine gynecological exam Ordered: 11/17/2024 [facility] Comment on above: Ordered: 11/17/2024 Hemoglobin A1c/Hemoglobin.total in Blood Hemoglobin A1c Lab Routine Annual wellness visit Ordered: 08/16/2024 [facility] Comment on above: Ordered: 08/16/2024 Hemoglobin A1c/Hemoglobin.total in Blood Hemoglobin A1c Lab Routine Missed menses , unspecified gestational age Ordered: 09/10/2024 [facility] Comment on above: Ordered: 09/10/2024 Hepatitis B virus surface Ag [Presence] in Serum or Plasma by Immunoassay Hepatitis B surface antigen Lab Routine Missed menses , unspecified gestational age Ordered: 09/10/2024 [facility] Comment on above: Ordered: 09/10/2024 Hepatitis C virus Ab [Presence] in Serum or Plasma by Immunoassay Hepatitis C antibody Lab Routine Missed menses , unspecified gestational age Ordered: 09/10/2024 [facility] Comment on above: Ordered: 09/10/2024 HIV-1/HIV-2 antigen/antibody combination immunoassay HIV-1 and HIV-2 antibodies Lab Routine Missed menses , unspecified gestational age Ordered: 09/10/2024 [facility] Comment on above: Ordered: 09/10/2024 Human papilloma viru s DNA [Presence] in Unspecified specimen by Probe with amplification HPV DNA probe, amplified Microbiology Routine Well woman exam with routine gynecological exam Ordered: 11/17/2024 [facility] Comment on above: Ordered: 11/17/2024 Neisseria gonorrhoea e DNA [Presence] in Unspecified specimen by PREMA with probe detection Neisseria gonorrhea DNA probe, direct Lab Routine Vaginal discharge Ordered: 11/17/2024 [facility] Comment on above: Ordered: 11/17/2024 Reagin Ab [Presence] in Serum by RPR RPR Lab Routine Missed menses , unspecified gestational age Ordered: 09/10/2024 [facility] Comment on above: Ordered: 09/10/2024 Rubella antibody, IgG Rubella an tibody, IgG Lab Routine Missed menses , unspecified gestational age Ordered: 09/10/2024 [facility] Comment on above: Ordered: 09/10/2024 SURESWAB(R) ADVANCED VAGINITIS PLUS, TMA SURESWAB(R) ADVANCED VAGINITIS PLUS, TMA Pathology and Cytology Routine Exposure to STD Ordered: 11/17/2024 [facility] [facility] Work Phone: Comment on above: Ordered: 11/17/2024 Thyrotropin [Units/volume] in Serum or Plasma TSH Lab Routine Annual wellness visit Ordered: 08/16/2024 [employer] Work Phone: Comment on above: Ordered: 08/16/2024 Payers Date Payer Category Payer Unknown [id number] 2022 Private Health Insurance [id number] 2019 Medicaid (Managed Care) 1.2. [id number] 1994 Unknown [id number] 2.16.84 0.1.667347.3.579.2.593 1994 Unknown [id number] 2.16.84 0.1.232843.3.579.2.593 1994 Unknown [id number] 2.16.84 0.1.467176.3.579.2.593 1994 Unknown [id number] 2.16.84 0.1.308640.3.579.2.593 1994 Unknown [id number] 2.16.84 0.1.252929.3.579.2.593 1994 Unknown [id number] 2.16.84 0.1.194724.3.579.2.593 1994 Unknown [id number] 2.16.84 0.1.103082.3.579.2.593 1994 Unknown [id number] 2.16.84 0.1.550332.3.579.2.593 1994 Unknown [id number] 2.16.84 0.1.216210.3.579.2.593 1994 Unknown [id number] 2.16.84 0.1.829337.3.579.2.593 1994 Unknown [id number] 2.16.84 0.1.362925.3.579.2.593 1994 Unknown [id number] 2.16.8 40.1.553786.3.579.2.1259 1994 Unknown [id number] 2.16.8 40.1.689199.3.579.2.1259 1994 Unknown [id number] 2.16.8 40.1.581081.3.579.2.9 1994 Unknown [id number] 2.16.8 40.1.073232.3.579.2.9 1994 Unknown [id number] 2.16.8 40.1.351265.3.579.2.9 1994 Unknown [id number] 2.16.8 40.1.635480.3.579.2.9 1994 Unknown [id number] 2.16.84 0.1.902476.3.579.2.9 1994 Unknown [id number] 2.16.84 0.1.975074.3.579.2.1259 1994 Unknown [id number] 2.16.84 0.1.345426.3.579.2.9 1994 Unknown [id number] 2.16.84 0.1.936867.3.579.2.1259 1994 Unknown [id number] 2.16.84 0.1.158043.3.579.2.9 1994 Unknown [id number] 2.16.84 0.1.904366.3.579.2.9 1994 Unknown [id number] 2.16.84 0.1.319744.3.579.2.9 1994 Unknown [id number] 2.16.84 0.1.631871.3.579.2.1259 1994 Unknown [id number] 2.16.84 0.1.833983.3.579.2.9 1994 Unknown [id number] 2.16.84 0.1.313780.3.579.2.9 1994 Unknown [id number] 2.16.84 0.1.201174.3.579.2.9 1994 Unknown [id number] 2.16.84 0.1.683110.3.579.2.9 1994 Unknown [id number] 2.16.84 0.1.820194.3.579.2.9 1959 Unknown [id number] 1959 Unknown [id number] 1959 Unknown [id number] Social History Date Type Detail Facility Tobacco smoking stat [facility] Tobacco smoking consumption unknown [facility] Start: 1994 Sex assigned at Female [facility] Start: 08-09-2024 Gender identity Identifies as female gender (finding) [facility] Start: 08-09-2024 Sexual orientation Heterosexual (fin ding) [facility] Start: 07-22-2024 [facility] Clinical Notes 11-19-2021 to 05-31-2025 Giulia Edouard DO - 05/31/2025 9:10 AM Viet Oh LPN - 03/30/2025 4:00 PM Viet Oh LPN - 03/23/2025 11:00 AM ROME Lin - 03/16/2025 10:00 AM ROME Lin - 11/17/2024 8:50 AM EST Note Date & Type Note Facility 05-31-2025 History of Present illness Narrative Reason for Appointment: Patient ID: Sidra Ortega is a 29 y.o. female who presents for Care (Pt present today for 6 week post visit.) Patient presents today for Post Follow Up appointment. Current Medications: has a current medication list which includes the following prescription(s): albuterol, apri, meclizine, methylprednisolone, omeprazole otc, vit-fe fumarate-fa, and promethazine. Medical History: Active Ambulatory Problems Diagnosis Date Noted Acute [...] No pertinent surgical history. No Known Allergies Review of Systems: Review of Systems Constitutional: Negative. HENT: Negative. Eyes: Negative. Respiratory: Negative. Cardiovascular: Negative. Gastrointestinal: Negative. Genitourinary: Negative. Musculoskeletal: Negative. Skin: Negative. Neurological: Negative. All other systems reviewed and are negative. Hematological: Negative. Endocrine: Negative. Allergic/Immunologic: Negative. Objective Physical Exam Constitutional: Appearance: Normal appearance. She [...] nursing note reviewed. Exam conducted with a laboratory development technician present. Vitals: Estimated body mass index is 27.76 kg/m as calculated from the following: Height as of this encounter: 5' 9 . Weight as of this encounter: 188 lb. BP: 122/74 Patient's last menstrual period was 07/08/2024. Assessment/Plan Encounter Diagnosis: ICD-10-CM 1. 6 weeks follow-up ([facility]) Z39.2 Post Follow Up: Patient is doing well. Patient presents today for 6 week visit. Patient is s/p Vaginal delivery. Patient states depression but denies suicidal and homicidal ideations. All options were discussed with the patient regarding control and patient desires oral contraception . Follow Up: Patient is to return for annual unless needed otherwise. Documented by Giulia Edouard DO on behalf of: Giulia Edouard DO documented in this encounter [facility] 03-30-2025 History of Present illness Narrative Reason [...] nursing note reviewed. Exam conducted with a laboratory development technician present. Vitals: Estimated body mass index is 30.72 kg/m as calculated from the following: Height as of 08/16/24: 5' 9 . Weight as of this encounter: 208 lb. BP: 118/72 Patient's last menstrual period was 07/08/2024. ASSESSMENT & PLAN ICD-10-CM 1. Third trimester ([facility]) Z34.93 2. 37 weeks gestation of ([facility]) Z3A.37 Return OB: Patient presents today for [...] Giulia Edouard DO documented in this encounter [facility] 03-23-2025 History of Present illness [...] nursing note reviewed. Exam conducted with a laboratory development technician present. Vitals: Estimated body mass index is 30.42 kg/m as calculated from the following: Height as of 08/16/24: 5' 9 . Weight as of this encounter: 206 lb. BP: 116/78 Patient's last menstrual period was 07/08/2024. ASSESSMENT & PLAN ICD-10-CM 1. Third trimester ([facility]) Z34.93 Urine dip 2. 36 weeks gestation of ([facility]) Z3A.36 Urine dip Return OB: Patient presents [...] Giulia Edouard DO documented in this encounter [facility] 03-16-2025 History of Present illness [...] ASSESSMENT & PLAN ICD-10-CM 1. Third trimester ([facility]) Z34.93 POCT urinalysis dipstick manually resulted CULTURE, GROUP B STREP WITH SUSCEPTIBLITY CULTURE, GROUP B STREP WITH SUSCEPTIBLITY 2. 36 weeks gestation of ([facility]) Z3A.36 Patient is doing well but has [...] of: ROME Adams documented in this encounter [facility] 02-23-2025 History of Present illness [...] nursing note reviewed. Exam conducted with a laboratory development technician present. Vitals: Estimated body mass index is [...] Giulia Edouard DO documented in this encounter [facility] 02-09-2025 History of Present illness [...] nursing note reviewed. Exam conducted with a laboratory development technician present. Vitals: Estimated body mass index is [...] to current . Pt was seen at [facility] for amnisure and was negative. Pt still [...] Giulia Edouard DO documented in this encounter [facility] 01-28-2025 Note [facility] Note Reason for cardiology [...] by mouth before breakfast., Disp: , Rfl: [id number] ( Multi-DHA,with vit K,) 27 mg iron-800 [...] Otherwise, follow-up in 2 months Nayana Redd MD,[facility] 01-19-2025 History of Present illness Narrative [...] nursing note reviewed. Exam conducted with a laboratory development technician present. Vitals: Estimated body mass index is [...] Giulia Edouard DO documented in this encounter [facility] 12-28-2024 History of Present illness [...] nursing note reviewed. Exam conducted with a laboratory development technician present. Vitals: Estimated body mass index is [...] Giulia Edouard DO documented in this encounter [facility] 11-17-2024 History of Present illness [...] nursing note reviewed. Exam conducted with a laboratory development technician present. 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 documented in this encounter [facility] 11-03-2024 History of Present illness [...] nursing note reviewed. Exam conducted with a laboratory development technician present. Vitals: Estimated body mass index is [...] Giulia Edouard DO documented in this encounter [facility] 10-06-2024 History of Present illness [...] nursing note reviewed. Exam conducted with a laboratory development technician present. Vitals: Estimated body mass index is [...] or undercooked meat, and stay away from [facility] [place]. Patient has been consulted regarding any further [...] Giulia Edouard DO documented in this encounter [facility] 09-10-2024 History of Present illness [...] or undercooked meat, and stay away from [facility] [place]. Patient has also been advised to not [...] Jaimee Beckman MA documented in this encounter [facility] 08-16-2024 History of Present illness [...] of: ROME Adams documented in this encounter [facility] 11-19-2021 Note PROCEDURE: XR WRIST LT MIN 3 V COMPARISON: None. HISTORY: Pain of left wrist FINDINGS: BONES:No fracture, acute abnormality, or significant arthropathy. SOFT TISSUES:Negative. No visible soft tissue swelling. EFFUSION:None visible. OTHER: Negative. IMPRESSION: No acute abnormality Electronically authenticated by: MARBIN MCKEON Date: 2021-11-19 13:16 [facility] Evaluation note Diagnosis Annual wellness visit- Primary [facility] Diagnosis Missed menses , unspecified gestational age Encounter for supervision of normal first in first trimester 9 weeks gestation of documented [facility]* Diagnosis 12 weeks gestation of [...] encounter [facility] Diagnosis Third trimester ([facility]) state, incidental 38 weeks gestation of ([facility]) documented in this encounter [facility]* Diagnosis 6 weeks follow-up ([facility]) documented in this encounter [facility] HealthcareHistory of [...] PLAN ICD-10-CM 1. 34 weeks gestation of ([facility]) Z3A.34 POCT urinalysis dipstick manually resulted 2. Third trimester ([facility]) Z34.93 POCT urinalysis dipstick manually resulted Return [...] HealthcareHistory of Present illness Narrative * Kaya Oh LPN - 04/06/2025 4:00 PM EDT Reason for [...] nursing note reviewed. Exam conducted with a laboratory development technician present. Vitals: Estimated body mass index is 31.01 kg/m as calculated from the following: Height as of 08/16/24: 5' 9 . Weight as of this encounter: 210 lb. BP: 122/70 Patient's last menstrual period was 07/08/2024. ASSESSMENT & PLAN ICD-10-CM 1. Third trimester ([facility]) Z34.93 POCT urinalysis dipstick manually resulted 2. 38 weeks gestation of ([facility]) Z3A.38 Return OB: Patient presents today for [...] and content) DATE CREATED AUTHOR 10/24/2022 [facility] DATE CREATED AUTHOR AUTHOR'S ORGANIZ ATION 01/31/2025 [facility] DATE CREATED AUTHOR AUTHOR'S ORGANIZ ATION 04/10/2025 [facility] Care Teams (unrecognized sec tion and content) Tmh Teacher Relationship Specialty Start Date End Date Deanne Pierre MD [address] [place] [address] PCP - General Family Medicine 08/11/23 Tmh Teacher Relationship Specialty Start Date End Date Deanne Pierre MD [address] [place] [address] PCP - General Family Medicine 08/11/23 Tmh Teacher Relationship Specialty Start Date End Date Deanne Pierre MD [address] [place] [phone] PCP - General Family Medicine 08/11/23 Tmh Teacher Relationship Specialty Start Date End Date Deanne Pierre MD [address] [facility], [place] [address] PCP - General Family Medicine 08/11/23 Tmh Teacher Relationship Specialty Start Date End Date Deanne Pierre MD [address] [facility], [place], [facility] [phone] PCP - General Family Medicine 08/11/23 Tmh Teacher Relationship Specialty Start Date End Date Deanne Pierre MD [address] [facility], [place], [facility] [address] PCP - General Family Medicine 08/11/23 Tmh Teacher Relationship Specialty Start Date End Date Deanne Pierre MD [address] [facility], [place], [facility] [address] PCP - General Family Medicine 08/11/23 Tmh Teacher Relationship Specialty Start Date End Date Deanne Pierre MD [address] [facility], [place] [address] PCP - General Family Medicine 08/11/23 Tmh Teacher Relationship Specialty Start Date End Date Deanne Pierre MD [address] [facility], [place] [address] PCP - General Family Medicine 08/11/23 Tmh Teacher Relationship Specialty Start Date End Date Deanne Pierre MD [address] [facility], [place] [address] PCP - General Family Medicine 08/11/23 Tmh Teacher Relationship Specialty Start Date End Date Deanne Pierre MD [address] [facility], [place] [address] PCP - General Family Medicine 08/11/23 Tmh Teacher Relationship Specialty Start Date End Date Deanne Pierre MD PCP - General Family Medicine 08/11/23 Tmh Teacher Relationship Specialty Start Date End Date Deanne Pierre MD [address] [facility], [place] [address] PCP - General Family Medicine 02/09/25 Tmh Teacher Relationship Specialty Start Date End Date Deanne Pierre MD [address] [facility], [place] [address] PCP - General Family Medicine 02/09/25 Tmh Teacher Relationship Specialty Start Date End Date Deanne Pierre MD [address] [facility], [place] [address] PCP - General Family Medicine 02/09/25 Tmh Teacher Relationship Specialty Start Date End Date Deanne Pierre MD [address] [facility], [place] [address] PCP - General Family Medicine 02/09/25 Tmh Teacher Relationship Specialty Start Date End Date Deanne Pierre MD [address] [facility], [place] [address] PCP - General Family Medicine 02/09/25 Tmh Teacher Relationship Specialty Start Date End Date Deanne Pierre MD [address] [facility], [place] [address] PCP - General Family Medicine 02/09/25 Tmh Teacher Relationship Specialty Start Date End Date Deanne Pierre MD [address] [place] [address] PCP - General Family Medicine 02/09/25 Tmh Teacher Relationship Specialty Start Date End Date Deanne Pierre MD [address] [place] [address] PCP - General Family Medicine 02/09/25 Tmh Teacher Relationship Specialty Start Date End Date Deanne Pierre MD [address] [place] [address] PCP - General Family Medicine 02/09/25 Reason for Visit (unrecogniz ed section and content) Reason Comments Gynecologic Exam Reason Comments Amenorrhea Reason Comments Routine Visit Reason Comments Well Women Visit Routine Visit Reason Comments Care Pt present today for 6 week post visit. FOR RECORDS PERTAINING TO PATIENTS WHO ARE [...] BE BASED ON THE PRIMARY CLINICAL RECORDS. [facility] [email or web address] [email or web address]. provides no warranty or guarantee of the accuracy or completeness of information in this document.
== END 2025-06-01 09:03 | disposition home or self-care (01) ==
LOC: CARD 09:02
PROVIDERS: PCP Family Medicine; Visit Provider Internal Medicine Cardiovascular Disease
DX: R00.2 Palpitations (principal); R06.09 Other forms of dyspnea
CPT/HCPCS: 93306

== ENCOUNTER 2025-08-29 12:09 | Outpatient (OUT) | payer BC, OTHER, SELFPAY ==
--- OUTSIDE RECORDS SUMMARY | 2025-08-29 12:13 | XMS_ITS | CCD ---
Author Organization [facility] Care Team Providers Care Air Route Traffic Controller Name Role Phone JAVAN, DR PLATT Attending [...] Consulting Unavailable JAVAN, DR PLATT Consulting Unavailable ABNERY, DR ALICEA Primary Care Unavailable JAVAN, DR PLATT Attending Unavailable JAVAN, DR PLATT Admitting Unavailable JAYSHREE WHIPPLE Consulting Unavailable JAVAN, DR PLATT Procedure Practitioner Unavailab NICHOLAS Mendoza Consulting Unavailable NICHOLAS KEYS Attending Unavailable NICHOLAS KEYS Admitting Unavailable DR DEANNE HDEZ Primary Care Unavailable Deanne Hdez MD Primary Care Provider [phone] Deanne Hdez MD Primary Care Provider [phone] Deanne Hdez MD Primary Care Provider [phone] JAVAN, GIULIA Attending Unavailable SOL, MARGRET Attending Unavailable SOL, AMRGRET Attending Unavailable JAVAN, GIULIA Attending Unavailable JAVAN, GIULIA Attending Unavailable JAVAN, GIULIA Attending Unavailable JAVAN, GIULIA Attending Unavailable JAVAN, GIULIA Attending Unavailable SOL, MARGRET Attending Unavailable JAVAN, GIULIA Attending Unavailable SOL, MARGRET Attending Unavailable JAVAN, GIULIA Attending Unavailable JAVAN, GIULIA Attending Unavailable JAVAN, GIULIA Attending Unavailable JAVAN, GIULIA Attending Unavailable NAYANA REDD Attending Unavailable Deanne Hdez MD Primary Care Provider [phone] Deanne Hdez MD Primary Care Provider [phone] Medications Current Medications MedicationDrug Class(es)DatesSig (Normalized)Sig (Original)albuterol 0.83 mg/ml inhalation solution (2 sources)beta2-Adrenergic AgonistStart: 05-03-2025 End: 36-09-3591nvlzpplfh (2.5 MG/3ML) 0.083% nebulizer solution Indications: URI, acute Take 3 mL (2.5 mg) by nebulization every 6 (six) hours if needed for wheezing 75 mL 11 05/03/2025 05/03/2026 Activeazithromycin 250 mg oral tablet (15 sources)Macrolide AntimicrobialStart: 09-24-2024 End: 60-32-0805wzpqtikvvcpn (Zithromax Z-Ajmarcus) 250 MG tablet Indications: Acute sinusitis, recurrence not specified, unspecified location As directed 6 tablet 09/24/2024 11/17/2024 DiscontinuedStart: 12-17-2023 End: 43-65-5218xvyuaovgzghi (Zithromax Z-Jamarcus) 250 MG tablet Indications: Acute sinusitis, recurrence not specified, unspecified location As directed 6 tablet 03/05/2024 08/10/2024 Discontinued (Therapy completed)cephalexin 500 mg oral capsule (5 sources)Cephalosporin AntibacterialStart: 11-15-2024 End: 02-76-4863fqsy 1 capsule by mouth in the morning, then take 1 capsule by mouth in the evening, then take 1 capsule by mouth at bedtimecephalexin (Keflex) 500 MG capsule Indications: UTI symptoms Take 1 capsule (500 mg) by mouth in the morning and 1 capsule (500 mg) in the evening and 1 capsule (500 mg) before bedtime. Do all this for 7 days. 21 capsule 11/15/2024 11/22/2024 Active desogestrel 0.15 mg / ethinyl estradiol 0.03 mg oral tablet (4 sources)Progestin, EstrogenStart: 05-25-2025 End: 29-99-7325qhsl 1 tablet by mouth once daily, then take 1 tablet by mouth once dailydesogestrel-ethinyl estradiol (Apri) 0.15-30 MG-MCG tablet Indications: Encounter for initial prescription of contraceptive pills Take 1 tablet by mouth Daily for 28 days Take 1 tablet by mouth daily28 tablet 11 05/25/2025 06/22/2025 ActiveStart: 04-21-2024 End: 32-47-4940mcqvlyqionv-ethinyl estradiol (Apri) 0.15-30 MG-MCG tablet Indications: Uses control Take 1 tablet by mouth Daily 28 tablet 12 04/21/2024 08/10/2024 Discontinued (Therapy completed)loratadine 10 mg disintegrating oral tablet (7 sources)Start: 10-14-2024 End: 83-68-4182xzzt 1 tablet by mouth once dailyloratadine (Alavert) 10 MG disintegrating tablet Indications: Nausea Take 1 tablet (10 mg) by mouthDaily 30 tablet 2 10/14/2024 11/17/2024 Discontinuedmeclizine hydrochloride 12.5 mg oral tablet (20 sources)AntiemeticStart: 28-61-7270jtrm 1 tablet by mouth three times daily as needed for nauseameclizine (Antivert) 12.5 MG tablet Indications: Nausea Take 1 tablet (12.5 mg) by mouth 3 (three) times a day as needed for dizziness or nausea for up to 30 doses 30 tablet 2 10/14/2024 ActivemethylPREDNISolone (20 sources)CorticosteroidStart: 18-20-3630mtcbflWWSGCOHkmsmo (Medrol Dospak) 4 MG tablets Indications: Contact dermatitis, unspecified contact dermatitis type, unspecified trigger Day 1: 6 tablets Day 2: 5 tablets Day 3: 4 tablets Day 4: 3 tablets Day 5: 2 tablets Day 6: 1 tablet 21 tablet 01/27/2025 ActiveStart: 12-17-2023 End: 88-87-4096hbertsYJAQCNMhcewy (Medrol Dospak) 4 MG tablets Indications: Acute sinusitis, recurrence not specified, unspecified location Day 1: 6 tablets Day 2: 5 tablets Day 3: 4 tablets Day 4: 3 tablets Day 5:2 tablets Day 6: 1 tablet 21 tablet 12/17/2023 08/10/2024 Discontinued (Therapy completed) metroNIDAZOLE 500 mg oral tablet (7 sources)Nitroimidazole AntimicrobialStart: 02-09-2025 End: 34-67-6958wvsn 1 tablet by mouth in the morningmetroNIDAZOLE (Flagyl) 500 MG tablet Indications: Vaginal discharge during in third trimester Take 1 tablet (500 mg) by mouth in the morning and 1 tablet (500 mg) before bedtime. Do all this for 7 days. 14 tablet 02/09/2025 02/16/2025 ActiveStart: 11-03-2024 End: 57-20-0779rboa 1 tablet by mouth once in the morningmetroNIDAZOLE (Flagyl) 500 MG tablet Indications: Vaginal discharge during in second trime ster Take 1 tablet (500 mg) by mouth in the morning and 1 tablet (500 mg) before bedtime. Do all this for 7 days. 14 tablet 11/03/2024 11/17/2024 Discontinued nitrofurantoin, macrocrystals 25 mg / nitrofurantoin, monohydrate 75 mg oral capsule (5 sources)Nitrofuran AntibacterialStart: 11-03-2024 End: 68-13-0565tumo 1 capsule by mouth in the morningnitrofurantoin, macrocrystal-monohydrate, (Macrobid) 100 MG capsule Indications: Hematuria, unspecified type Take 1 capsule (100 mg) by mouth in the morning and 1 capsule (100 mg) before bedtime. Do all this for 7 days. 14 capsule 11/03/2024 11/17/2024 Discontinuedomeprazole 20 mg delayed release oral tablet (20 sources)Proton Pump InhibitorStart: 12-15-2024 End: 74-86-5543lvuo 1 tablet by mouth before mealtimeomeprazole OTC (PriLOSEC OTC) 20 MG EC tablet Indications: Heartburn during , antepartum (HHS- HCC) Take 1 tablet (20 mg) by mouth in the morning. Take before meals. Do not crush, chew, or split.. 30 tablet 11 12/15/2024 12/15/2025 ActivePrenatal Vit-Fe Fumarate-FA ( VITAMINS PO) (20 sources)Start: 34-69-8797Xjaoaboi Vit-Fe Fumarate-FA ( VITAMINS PO) 06/22/2024 Activepromethazine hydrochloride 12.5 mg oral tablet (20 sources)PhenothiazineStart: 53-76-9095ozwd 1 tablet by mouth every six hours as needed for nausea and vomiting and nausea and nauseapromethazine (Phenergan) 12.5 MG tablet Indications: Nausea Take 1 tablet (12.5 mg) by mouth every 6 (six) hours if needed for nausea or vomiting for up to 30 doses Take 1 tablet by mouth every 6 hours as needed for nausea. 30 tablet 2 08/24/2024 Active Completed/Discontinued Medications MedicationDrug Class(es)DatesSig (Normalized)Sig (Original)etodolac 200 mg oral capsule (2 sources)Nonsteroidal Anti-inflammatory DrugStart: 08-02-2024 End: 82-31-6493ehnv 1 capsule by mouth every six hoursetodolac (Lodine) 200 MG capsule Indications: Inflammation around joint TAKE 1 CAPSULE BY MOUTH EVERY 6 HOURS IF NEEDED (INFLAMATION) 120 capsule 08/02/2024 08/10/2024 Discontinued (Therapy completed)fluconazole 150 mg oral tablet (2 sources)Azole AntifungalStart: 10-22-2023 End: 14-74-2307azmmfkxekxn (Diflucan) 150 MG tablet Indications: Yeast infection 1 tablet PO day one; then 72 hours later take 2nd pill PO 2 tablet 1 10/22/2023 08/10/2024 Discontinued (Therapy completed)ibuprofen 800 mg oral tablet (2 sources)Nonsteroidal Anti-inflammatory DrugStart: 02-13-2024 End: 49-61-8404uoci 1 tablet by mouth every eight hours as needed for pain and headache and headacheibuprofen 800 MG tablet Indications: Nonintractable episodic headache, unspecified headache type Take 1 tablet (800 mg) by mouth every 8 (eight) hours if needed for mild pain for up to 30 doses 30 tablet 02/13/2024 08/10/2024 Discontinued (Therapy completed) Problems Active Problems Problem ClassificationProblemDateDocumented DateEpisodic/ChronicGenitourinary symptoms and ill-defined conditions (7 sources)Personal history of urinary (tract) infections; Translations: [Unspecified symptoms and signs involving the genitourinary system]Onset: 30-40-3845OnciugzmJcnegfxazcdlm and screening for infectious disease (2 sources)Exposure to sexually transmissible disorder; Translations: [Contact with and (suspected) exposure to infections with a predominantly sexual mode of transmission]84-10-0578ZmerysurTyxovfvix disorders (1 source)Missed period; Translations: [Irregular menstruation, unspecified] 36-70-6458YgcgqmhFxzjs complications of (6 sources)Vaginal discharge; Translations: [Other specified related conditions, second trimester]93-01-2957UfeoiydkWrjsq complications of (2 sources)Excessive growth affecting management of mother; Translations: [Maternal care for excessive growth, unspecified trimester, not applicable or unspecified]92-58-2006TwgfuvvoTglkb connective tissue disease (1 source)Myalgia, other site; Translations: [MYALGIA OTHER SITE]Onset: 90-42-1138XzmvnhjvUxnse and delivery including normal (20 sources)Single live ; Translations: []Onset: 04-08-2022 45-77-5440IynxbmywPjbxm screening for suspected conditions (not mental disorders or infectious disease) (20 sources)Encounter for screening for Streptococcus B; Translations: [Encounter for screening for diabetes mellitus]Onset: 42-94-3679QlqgatyyIqmoj upper respiratory infections (4 sources)Chronic sinusitis, unspecified; Translations: [CHRONIC SINUSITIS UNSPECIFIED]Onset: 62-74-3767SvuhekaBiwfnymh codes; unclassified (1 source)Gestation period, 9 weeks; Translations: [9 weeks gestation of ]37-77-1586DbeijcnuVjzowmgf codes; unclassified (2 sources)Gestation period, 12 weeks; Translations: [12 weeks gestation of ]74-57-8163SwdphrwaGgmoglvj codes; unclassified (2 sources)Gestation period, 16 weeks; Translations: [16 weeks gestation of ]24-89-4192PedczfaxLbprvfvk codes; unclassified (2 sources)Gestation period, 18 weeks; Translations: [18 weeks gestation of ]40-51-0091QwwwssrhMcaujwnq codes; unclassified (2 sources)Gestation period, 24 weeks; Translations: [24 weeks gestation of ]67-05-5109JfbvswbmWomgwvdd codes; unclassified (2 sources)Gestation period, 27 weeks; Translations: [27 weeks gestation of ]41-62-6139TufkvjllYusavlgs codes; unclassified (2 sources)Gestation period, 30 weeks; Translations: [30 weeks gestation of ]44-90-7199AmdpuviaRjgzjpte codes; unclassified (2 sources)Gestation period, 32 weeks; Translations: [32 weeks gestation of ]60-29-3183SqhmyvgwLjlbetqs codes; unclassified (2 sources)Gestation period, 34 weeks; Translations: [34 weeks gestation of ]05-04-3585QxplgkpoVznzeiti codes; unclassified (4 sources)Gestation period, 36 weeks; Translations: [36 weeks gestation of ]05-46-9589JxgixmkdRtvjmwqv codes; unclassified (2 sources)Gestation period, 37 weeks; Translations: [37 weeks gestation of ]90-45-5038YqmcsedfGtsasrsk codes; unclassified (2 sources)Gestation period, 38 weeks; Translations: [38 weeks gestation of ]51-37-3980UteihyjhLqyquuntwpg; intervertebral disc disorders; other back problems (3 sources)Cervicalgia; Translations: [CERVICALGIA]Onset: 13-76-6262Bcmcgyvw Unclassified (1 source)CONTACT W/AND (SUSP) EXPOS COVID-19; Translations: [CONTACT W/AND (SUSP) EXPOS COVID-19]Onset: 72-81-2978Mzsrj infection (1 source)Viral infection, unspecified; Translations: [VIRAL INFECTION UNSPECIFIED]Onset: 10-98-0100Uiktotej Past or Other Problems Problem ClassificationProblemDateDocumented DateEpisodic/ChronicCardiac dysrhythmias (2 sources)Palpitations; Translations: [Palpitations]Onset: 25-64-2544Rqxszyep Nausea and vomiting (1 source)Nausea with vomiting, unspecified; Translations: [NAUSEA WITH VOMITING UNSPECIFIED]Onset: 82-62-2919ZkpbgdeyMV-related trauma to perineum and vulva (1 source)First degree perineal laceration during delivery; Translations: [FIRST DEG PERINEAL LAC DUR DELIV]Onset: 33-76-0851BsndiuvcXoreq complications of ; puerperium affecting management of mother (1 source)Streptococcus B carrier state complicating childbirth; Translations: [STREP B GOOD STATE COMP CHILDBIRTH]Onset: 97-66-9573KbezsbzhKhxhi complications of (4 sources)Maternal care for excessive growth, third trimester, not applicable or unspecified; Translations: [MAT CARE EXCSS FTL GRTH 3RD TRI UNS] Onset: 10-67-6971UqnunghnSizyq complications of (4 sources)Other specified related conditions, third trimester; Translations: [OTH SPEC PREG RELATEDCOND 3RD TRI]Onset: 63-99-1981PcvbbcgqAkxbp female genital disorders (1 source)Other specified noninflammatory disorders of vagina; Translations: [OTH SPEC NONINFLAMMATORY D/O VAGINA]Onset: 89-60-5380IvgrlarzRaycu injuries and conditions due to external causes (1 source)Unspecified injury of left wrist, hand and finger(s), initial encounter; Translations: [UNS INJ LT WRIST HAND FINGERS INIT]Onset: 11-21-2021 EpisodicOther lower respiratory disease (2 sources)Other forms of dyspnea; Translations: [Other forms of dyspnea]Onset: 66-85-8671GeuxgcvyKdbmc upper respiratory infections (20 sources)Acute sinusitis; Translations: [Acute sinusitis, unspecified]Onset: 977377-47-6483UsskineoGnxdfmfo codes; unclassified (1 source)39 weeks gestation of ; Translations: [39 WEEKS GESTATION OF ]Onset: 53-07-8211RhozemrjSbavunmw codes; unclassified (1 source)35 weeks gestation of ; Translations: [35 WEEKS GESTATION OF ]Onset: 99-49-1471LwfcppmlHyoixrwn codes; unclassified (1 source)28 weeks gestation of ; Translations: [28 WEEKS GESTATION OF ]Onset: 01-54-6131DlfokhtbMsugylqz codes; unclassified (1 source)20 weeks gestation of ; Translations: [20 WEEKS GESTATION OF ]Onset: 94-23-3083Czxattzp Results Test NameValueInterpretationReference TmytzPqzcjmam67yd 72-00-571463OgbgzMD Isabella Delgadillo MA Inform patient that her echo is normal. I noticed that I saw this patient in January and she was supposed to follow-up in March, make sure she has a follow-up appointment of course if she wants Spoke to patient to advise her of her Echo results per Dr. Wilks request. Patient verbalized understanding and follow up appointment made for 08/29/2025 [facility] WITH AUTO DIFFon 04-08-2025 BASOPHILS ABSOLUTE PDLV3VSTN HealthcareBasophils/100 WBC (Bld)0.2 %0.2 - 2.0 % [facility]OM[facility] HealthcareEosinophils/100 WBC (Bld)0.5 %Low0.9 - 7.0 %[facility] Erythrocyte distribution width (RBC) [Ratio]12.2 %11.0 - 15.0 %[facility] Hematocrit (Bld) [Volume fraction]33.8 %Low36.0 - 48.0 %[facility] Hemoglobin (Bld) [Mass/Vol]11.8 g/dLLow12.0 - 16.0 g/dLNOMS HealthcareIMMATURE GRANULOCYTES ABS AUTO0.06HighNOMS HealthcareImmature granulocytes/100 WBC (Bld) 0.5 %0.0 - 0.5 %[facility] HealthcareInterpretation and review of laboratory results AbnormalNOMS HealthcareLYMPHOCYTES ABSOLUTE AUTO1.5[facility] Lymphocytes/100 WBC (Bld)12.9 %Low20.5 - 60.0 %[facility] (RBC) [Entitic mass]34.3 njXzxv28.7 - 34.0 pgCitizens Memorial Healthcare (RBC) [Mass/Vol]34.9 g/dL29.9 - 35.2 g/dLSelect Specialty HospitalV (RBC) [Entitic vol]98.3 fL81.0 - 99.0 fLNevada Regional Medical CenterMONOCYTES ABSOLUTE AUTO0.8N[facility] Medical CenterMonocytes/100 WBC (Bld)7.1 % 1.7 - 12.0 %[facility] CenterNEUTROPHILS ABSOLUTE AUTO9.2HighNevada Regional Medical Center Neutrophils/100 WBC (Bld)78.8 %High43.0 - 75.0 %[facility] CenterPlatelet mean volume (Bld) [Entitic vol]11.3 fL9.5 - 13.5 fLNevada Regional Medical CenterTB EO #0.1NOMS [facility] SOK410IxsZTQETexas County Memorial Hospital RBC3.44LowSSM Health Care WBC11.6 HighNevada Regional Medical CenterCLINISYNPrisma Health [facility] Hospital CBC WITH PLATELET NO DIFFERENTIALon 09-17-3103Iqzagrtzafz distribution width (RBC) [Ratio]12 %11.0 - 15.0 %[facility] CenterHematocrit (Bld) [Volume fraction]37.1 %36.0 - 48.0 %[facility] CenterHemoglobin (Bld) [Mass/Vol]13.2 g/dL12.0 - 16.0 g/dLNevada Regional Medical Center Interpretation and review of laboratory resultsAbnormalMissouri Rehabilitation Center (RBC) [Entitic mass]34.1 cgEuax48.7 - 34.0 pgCitizens Memorial Healthcare (RBC) [Mass/Vol]35.6 g/aRQvvg06.9 - 35.2 g/dLSelect Specialty HospitalV (RBC) [Entitic vol]95.9 fL81.0 - 99.0 fLNevada Regional Medical CenterPlatelet mean volume (Bld) [Entitic vol]11.6 fL9.5 - 13.5 fL [facility] MQC251POJM [facility] RBC3.87LowNOTexas County Memorial Hospital WBC8.1 [facility] CenterINISYNAiken Regional Medical CenterUrinalysis macro (dipstick) panel (U)on 38-00-0973Afsfwghmp, UAModerateNegative - 4(70) +++ mg/dLNOMS HealthcareBlood, UANegativeNegative - 50 Som/mcLNOMS HealthcareClarity, UAClearNOMS Healthcare Color, UAYellowNOMS HealthcareGlucose, UANegativeNegative - 2000(110) ++++ mg/dL [facility] HealthcareInterpretation and review of laboratory resultsAbnormalNOMS HealthcareKetones, UANegativeNegative - 160(16) ++++ mg/dLN[facility]S Healthcare Leukocytes, UAModerateNegative - 500+++ Eric/mcLNOMS HealthcareNitrite, UA NegativeNegative - PositiveNOMS HealthcarepH, UA8.55 - 9NOMS HealthcareProtein, UATraceNegative - 2000(20) ++++ mg/dLNOMS HealthcareSpec Grav, UA1.011 - 1.03 N[facility]S HealthcareUrobilinogen, UA0.20.2 - 12 mg/dLNOMS HealthcareNOMS Healthcare Urinalysis macro (dipstick) panel (U)on 89-70-3965Cuysblrjc, UANegativeNegative - 4(70) +++ mg/dLNOMS HealthcareBlood, UANegativeNegative - 50 Osm/mcLNOMS HealthcareClarity, UAClearNOMS HealthcareColor, UAYellowNOMS HealthcareGlucose, UANegativeNegative - 2000(110) ++++ mg/dLNOMS HealthcareInterpretation and review of laboratory resultsAbnormalNOMS HealthcareKetones, UANegativeNegative - 160(16) ++++ mg/dLNOMS HealthcareLeukocytes, UAPositiveNegative - 500+++ Eric/mcL [facility] HealthcareNitrite, UANegativeNegative - PositiveNOMS HealthcarepH, UA75 - 9 [facility] HealthcareProtein, UANegativeNegative - 1999(20) ++++ mg/dLNOMS Healthcare Spec Grav, UA1.0151 - 1.03NOMS HealthcareUrobilinogen, UA1.00.2 - 12 mg/dLNOMS HealthcareNOMS HealthcareUrinalysis macro (dipstick) panel (U)on 03-16-2025 Bilirubin, UANegativeNegative - 4(70) +++ mg/dLNOMS HealthcareBlood, UANegative Negative - 50 Som/mcLNOMS HealthcareClarity, UAClearNOMS HealthcareColor, UA YellowNOMS HealthcareGlucose, UANegativeNegative - 2000(110) ++++ mg/dLNOMS HealthcareInterpretation and review of laboratory resultsAbnormalNOMS Healthcare Ketones, UANegativeNegative - 160(16) ++++ mg/dLNOMS HealthcareLeukocytes, UA PositiveNegative - 500+++ Eric/mcLNOMS HealthcareComment on above:smallNitrite, UANegativeNegative - PositiveNOMS HealthcarepH, UA65 - 9NOMS HealthcareProtein, UANegativeNegative - 2000(20) ++++ mg/dLNOMS HealthcareSpec Grav, UA1.0251 - 1.03NOMS HealthcareUrobilinogen, UA1.00.2 - 12 mg/dLNOMS HealthcareNOMS HealthcareUrinalysis macro (dipstick) panel (U)on 31-29-6827Kaaohlncy, UA NegativeNegative - 4(70) +++ mg/dLNOMS HealthcareBlood, UAPositiveNegative - 50 Som/mcLNOMS HealthcareComment on above:Trace-intactClarity, UACloudyNOMS HealthcareColor, UAYellowNOMS HealthcareGlucose, UANegativeNegative - 2000(110) ++++ mg/dLNOMS HealthcareInterpretation and review of laboratory resultsAbnormal N[facility]S HealthcareKetones, UANegativeNegative - 160(16) ++++ mg/dLN[facility]S Healthcare Leukocytes, UAPositiveNegative - 500+++ Eric/mcLNOMS HealthcareComment on above: SmallNitrite, UANegativeNegative - PositiveNOMS HealthcarepH, UA75 - 9NOMS HealthcareProtein, UANegativeNegative - 2000(20) ++++ mg/dLNOMS HealthcareSpec Grav, UA1.0251 - 1.03NOMS HealthcareUrobilinogen, UA1.00.2 - 12 mg/dLNOMS HealthcareNOMS HealthcareUrinalysis macro (dipstick) panel (U)Ordered By: Kaya Oh on 47-06-5063Txyoleilz, UANegativeNegative - 4(70) +++ mg/dLNOMS HealthcareBlood, UAPositiveNegative - 50 Som/mcLNOMS HealthcareClarity, UAClear NOMS HealthcareColor, UAYellowNOMS HealthcareGlucose, UANegativeNegative - 1999(110) ++++ mg/dLNOMS HealthcareInterpretation and review of laboratory resultsAbnormalNOMS HealthcareKetones, UANegativeNegative - 160(16) ++++ mg/dL [facility] HealthcareLeukocytes, UANegativeNegative - 500+++ Eric/mcLNOMS Healthcare Nitrite, UANegativeNegative - PositiveNOMS HealthcarepH, UA6.55 - 9NOMS HealthcareProtein, UAManyNegative - 2000(20) ++++ mg/dLNOMS HealthcareSpec Grav, UA1.0251 - 1.03NOMS HealthcareUrobilinogen, UA2.00.2 - 12 mg/dLNOMS Healthcare NOMS HealthcareUS OB LIMITED 1+ FETUSESon 53-64-5527EL OB LIMITED 1+ FETUSES EXAM: US OB [...] II, MD, PHD at 16-Feb-2025 11:19:13 PM [facility]iologyNormalNot AvailableComment on above:Order Comment: US OB AMNIOTIC FLUID VOLUME Estimated Date of Delivery: 04/14/25 Gestational Age as of 02/09/2025: 87x4wOnteqodkmz macro (dipstick) panel (U)on 28-88-0612Dpnabaffc, UANegativeNegative - 4(70) +++ mg/dLNOMS HealthcareBlood, UANegativeNegative - 50 Som/mcLNOMS HealthcareClarity, UACloudyNOMS Healthcare Color, UAAmberNOMS HealthcareGlucose, UANegativeNegative - 1999(110) ++++ mg/dL [facility] HealthcareInterpretation and review of laboratory resultsAbnormalNOMS HealthcareKetones, UANegativeNegative - 160(16) ++++ mg/dLNOMS Healthcare Leukocytes, UAPositiveNegative - 500+++ Eric/mcLNOMS HealthcareNitrite, UA NegativeNegative - PositiveNOMS HealthcarepH, UA7.55 - 9NOMS HealthcareProtein, UAPositiveNegative - 1999(20) ++++ mg/dLNOMS HealthcareSpec Grav, UA1.0251 - 1.03NOMS HealthcareUrobilinogen, UA2.00.2 - 12 mg/dLNOMS HealthcareNOMS HealthcareUS OB FOLLOW UP TRANSABDOMINAL APPROACHon 61-30-6811ET OB FOLLOW UP TRANSABDOMINAL APPROACHEXAM: US OB FOLLOW UP TRANSABDOMINAL APPROACH HISTORY: [...] II, MD, PHD at 04-Feb-2025 10:12:11 AM [facility] TeleradiologyNormalNot AvailableComment on above:Order Comment: US OB SCAN FOR GROWTH Estimated Date of Delivery: 04/14/25 Gestational Age as of 12/28/2024: 14c7sVfyzbg Visiton 80-39-8838Nhydcs-up visit [id number] Sidra Spann 1995 F Date Provider Department Center 01/28/2025 [id number] REDD CARD [facility] Family History Problem Relation Age of Onset Arrhythmia Mother Family Status - Relation Status Age at Mother Alive Father Alive Brother Alive Level of Service:88790 [place] OFFICE/OUTPATIENT NEW MODERATE MDM 45 MINUTES Reason for Visit and Comments: Palpitations [969605] Dizziness [007753] Excessive Sweating [[id number]]NormalUnUniversity Hospitals [facility] Urinalysis macro (dipstick) panel (U)on 90-52-3610Fsjhsmtxu, UANegativeNegative - 4(70) +++ mg/dLNOMS HealthcareBlood, UANegativeNegative - 50 Som/mcLNOMS HealthcareClarity, UAClearNOMS HealthcareColor, UAYellowNOMS HealthcareGlucose, UANegativeNegative - 1999(110) ++++ mg/dLNOMS HealthcareInterpretation and review of laboratory resultsAbnormalNOMS HealthcareKetones, UANegativeNegative - 160(16) ++++ mg/dLNOMS HealthcareLeukocytes, UAPositiveNegative - 500+++ Eric/mcLNOMS HealthcareNitrite, UANegativeNegative - PositiveNOMS HealthcarepH, UA65 - 9NOMS HealthcareProtein, UATraceNegative - 2000(20) ++++ mg/dLNOMS HealthcareSpec Grav, UA1.021 - 1.03NOMS HealthcareUrobilinogen, UA1.00.2 - 12 mg/dLNOMS HealthcareNOMS HealthcareGLUCOSE 1 HOURon 59-99-0000Zvhpmus [Mass/Vol] 80 mg/dLNINF - 130 mg/dLNOMS HealthcareCLINISYNCNOMS HealthcareUrinalysis macro (dipstick) panel (U)on 63-24-4757Kaogcmvsb, UANegativeNegative - 4(70) +++ mg/dL [facility] HealthcareBlood, UANegativeNegative - 50 Som/mcLNOMS HealthcareClarity, UA ClearNOMS HealthcareColor, UAYellowNOMS HealthcareGlucose, UANegativeNegative - 2000(110) ++++ mg/dLNOCA HealthcareInterpretation and review of laboratory resultsAbnormalNOMS HealthcareKetones, UANegativeNegative - 160(16) ++++ mg/dL N[facility]S HealthcareLeukocytes, UAPositiveNegative - 500+++ Eric/mcLNOMS Healthcare Comment on above:smallNitrite, UANegativeNegative - PositiveNOMS HealthcarepH, UA15 - 9NOMS HealthcareProtein, UAPositiveNegative - 2000(20) ++++ mg/dLNOCA HealthcareComment on above:30mgSpec Grav, UA1.0251 - 1.03N[facility] Healthcare Urobilinogen, UA1.00.2 - 12 mg/dLNOSt. Louis Behavioral Medicine InstituteNOCA HealthcareUS OB 14+ WEEKS ANATOMY SCANon 75-26-2560CM OB 14+ WEEKS ANATOMY SCANEXAM: US OB 14+ WEEKS ANATOMY SCAN HISTORY: [...] II, MD, PHD at 01-Dec-2024 08:36:07 AM [facility] TeleradiologyNormalNot AvailableComment on above:Order Comment: US OB ANATOMY SINGLE W US OB CERVICAL LENGTH Estimated Date of Delivery: 04/14/25 Gestational Age as of 11/03/2024: 76p2gWYW,APTIMA HPV,AGE GDLNon 81-48-4378QLM GDLN ACOG TESTINGNote.NOMS HealthcareComment on above:TESTS RESULT FLAG UNITS REF RANGE LAB Clinician Provided Cytology Information Source.............Cervix Other.............. No. of containers..01 ThinPrep Vial Age Algo ACOG Sunita... 30-65 01 FLAG LEGEND: L-Low Normal,H-High Normal,LL-Alert Low,HH-Alert High <-Panic Low,>-Panic High,A-Abnormal,AA-Critical Abnormal Performed at: 01 [facility] [place] [address] Senait Shook MD, HPV APTIMANegativeNegativeNOMS HealthcareComment on above:This nucleic acid amplification test detects fourteen high- risk HPV types (16,18,31,33,35,39,45,51,52,56,58,59,66,68) without differentiation. Performed at: =G - [facility] [id number] Drug Purchaser: Senait Shook MD, Phone: [phone] Performed at: - [facility], [place] [id number] Drug Purchaser: Senait Shook MD, Phone: [phone] IGP, APTIMA HPV, RFX 16/18,45Note.NOMS HealthcareComment on above:TESTS RESULT FLAG UNITS REF RANGE LAB DIAGNOSIS: 02 NEGATIVE FOR INTRAEPITHELIAL LESION OR MALIGNANCY. THIS SPECIMEN WAS RESCREENED PART OF OUR MARINE ELECT[employer]ICIAN HELPER PROGRAM. Specimen adequacy: 02 Satisfactory for evaluation. No endocervical component is identified. An endocervical component is not commonly seen in the patient. Performed by: 02 Graciela Sorenson Mincemeat Maker QC reviewed by: Lorraine Leung Mincemeat Maker ([facility]) . 02 Note: Note 02 The Pap [...] Low,>-Panic High,A-Abnormal,AA-Critical Abnormal Performed at: [address] [address] Senait hSook MD, SPATULA-ALONE CERVIX CLINISYNCNOMS HealthcareNo Panel Informationon 88-83-6455XYPHXMCWDRRXEK EPIDERMIDIS, HAEMOLYTICUS, LUGDUNENSIS, SAPROPHYTICUS (AXDRU8QOSG Healthcare STAPHYLOCOCCUS EPIDERMIDIS, HAEMOLYTICUS, LUGDUNENSIS, SAPROPHYTICUS (URINANot detectedNOMS HealthcareURINARY TRACT INFECTION (HTRX)on 46-90-7604STAMCLAWOVFZE TRLPRKPS8DVGU HealthcareACINETOBACTER BAUMANIINot detectedNOMS HealthcareCANDIDA ALBICANS, PARAPSILOSIS, KDBSGEPJLF3HFVA HealthcareCANDIDA ALBICANS, PARAPSILOSIS, TROPICALISNot detectedNOMS HealthcareCANDIDA BNTUURVR5TGME HealthcareCANDIDA GLABRATANot detectedNOMS HealthcareCANDIDA RKEJAD6LBRB HealthcareCANDIDA KRUSEINot detectedNOMS HealthcareCITROBACTER HUYSZANV0CXIB HealthcareCITROBACTER FREUNDIINot detectedNOMS HealthcareENTEROBACTER AEROGENES, OQRUKCW0LXKT HealthcareENTEROBACTER AEROGENES, CLOACAENot detectedNOMS HealthcareENTEROCOCCUS FAECALIS, ETGWWRL3RMSB HealthcareENTEROCOCCUS FAECALIS, FAECIUMNot detectedNOMS HealthcareESCHERICHIA HJRY1ERSN HealthcareESCHERICHIA COLINot detectedNOMS HealthcareKLEBSIELLA PNEUMONIAE, UCZEAWI4PIBJ Healthcare KLEBSIELLA PNEUMONIAE, OXYTOCANot detectedNOMS HealthcareMORGANELLA MORGANII0 NOMS HealthcareMORGANELLA MORGANIINot detectedNOMS HealthcarePROTEUS MIRABILIS, ZYMARVWA8EOFC HealthcarePROTEUS MIRABILIS, VULGARISNot detectedNOMS Healthcare PSEUDOMONAS DDHOQVFUGT0EGKN HealthcarePSEUDOMONAS AERUGINOSANot detectedNOMS HealthcareSERRATIA VJPZQLJCZD5ZKMH HealthcareSERRATIA MARCESCENSNot detectedNOMS HealthcareSTAPHYLOCOCCUS HRQHHR4EMCK HealthcareSTAPHYLOCOCCUS AUREUSNot detectedNOMS HealthcareSTREPTOCOCCUS AGALACTIAE (GROUP B STREP)0NOMS Healthcare STREPTOCOCCUS AGALACTIAE (GROUP B STREP)Not detectedNOMS HealthcareSTREPTOCOCCUS PYOGENES (GROUP A STREP)0NOMS HealthcareSTREPTOCOCCUS PYOGENES (GROUP A STREP) Not detectedNOMS HealthcareNOMS HealthcareCARDIOCHECK - LIPID AND GLUCOSEon 83-09-5223Wrpuqpgfsdl [Mass/Vol]209 mg/dLNINF - 200NOMS HealthcareCholesterol in HDL [Mass/Vol]64 mg/dLM: 35-65 F: 35-80NOMS HealthcareCholesterol in LDL [Mass/Vol]108 mg/dLNINF - 100NOMS HealthcareGlucose [Mass/Vol]98 mg/dLNINF - 100 NOMS HealthcareInterpretation and review of laboratory resultsAbnormalNOMS HealthcareTriglyceride [Mass/Vol]185 mg/dLNINF - 150NOMS HealthcareNOMS HealthcareUrinalysis macro (dipstick) panel (U)on 13-31-5204Vzhfnvslq, UAFew Negative - 4(70) +++ mg/dLNOMS HealthcareBlood, UAPositiveNegative - 50 Som/mcL NOMS HealthcareColor, UAAmberNOMS HealthcareGlucose, UANegativeNegative - 2000(110) ++++ mg/dLNOMS HealthcareInterpretation and review of laboratory resultsAbnormalNOCA HealthcareKetones, UANegativeNegative - 160(16) ++++ mg/dL NOMS HealthcareLeukocytes, UANegativeNegative - 500+++ Eric/mcLNOMS Healthcare Nitrite, UANegativeNegative - PositiveNOMS HealthcarepH, UA5.55 - 9NOMS HealthcareProtein, UAPositiveNegative - 2000(20) ++++ mg/dLNOMS HealthcareSpec Grav, UA1.031 - 1.03NOMS HealthcareUrobilinogen, UA1.00.2 - 12 mg/dLNOMS HealthcareNOMS HealthcareUrinalysis macro (dipstick) panel (U)on 10-06-2024 Bilirubin, UANegativeNegative - 4(70) +++ mg/dLNOCA HealthcareBlood, UANegative Negative - 50 Som/mcLNOCA HealthcareClarity, UAClearNOMS HealthcareColor, UA YellowNOCA HealthcareGlucose, UANegativeNegative - 2000(110) ++++ mg/dLNOCA HealthcareInterpretation and review of laboratory resultsNormalS[facility] Healthcare Ketones, UANegativeNegative - 160(16) ++++ mg/dLNOCA HealthcareLeukocytes, UA NegativeNegative - 500+++ Eric/mcLNOCA HealthcareNitrite, UANegativeNegative - PositiveNOMS HealthcarepH, UA5.55 - 9NOCA HealthcareProtein, UANegativeNegative - 2000(20) ++++ mg/dLNOCA HealthcareSpec Grav, UA1.031 - 1.03NOCA Healthcare Urobilinogen, UA1.00.2 - 12 mg/dLNOSt. Louis Behavioral Medicine InstituteNOCA HealthcareBOX TESTon 24-64-3519CFX TEST SENT OUTUNGRAND LAKE [facility] GdkhdbtrkvGRR0DNSVRKTQF HealthcareBOX2 10/01/2024NOCA HealthcareUNITY BOX CLINISYNCSALT [facility] HealthcareHCG ( test) Ql (U)on 09-19-6722Lwxxojixylomtl and review of laboratory resultsAbnormFoundations Behavioral HealthPreg Test, UrPositive NegativeNOPutnam County Memorial Hospital HealthcareUS OB TRANSVAGINALon 05-83-8299[place]dC[place] [address] Ultrasound Report Signed Patient: SIDRA SPANN MR#: [id number] : 1995 Acct:[id number] Age/Sex: 28 / F ADM Date: 09/10/24 Loc: [facility] Attending Dr: Giulia Edouard D.O. Ordering Physician: Giulia Edouard D.O. Date of Service: 09/10/24 Procedure(s): US OB transvaginal Accession Number(s): [id number] cc: Giulia Edouard D.O.; Deanne Hdez M.D. [address] [id number] Patient Name: SIDRA SPANN MRN: [id number] date: 1995 Sex: F Assigned Patient Location: [facility] Current Patient Location: [facility] Accession/Order Number: [id number] Exam Date: 09/10/2024 08:06 Report Date: 09/10/2024 [...] weeks 1 day Electronically authenticated by: MARBIN ROSA Date: 09/10/2024 09:47 Dictated By: Marbin Rosa M.D. Signed By: 09/10/24 1441 DD/ 0947 TD/TT: Book Coverer:SLIMEHRadiology, Radiologist, - 09/10/2024 [place] [address] Ultrasound Report Signed Patient: SIDRA SPANN MR#: [id number] : 1995 Acct:[id number] Age/Sex: 28 / F ADM Date: 09/10/24 Loc: [facility] Attending Dr: Giulia Edouard D.O. Ordering Physician: Giulia Edouard D.O. Date of Service: 09/10/24 Procedure(s): US OB transvaginal Accession Number(s): [id number] cc: Giulia Edouard D.O.; Deanne Hdez M.D. [address] [place] [id number] Patient Name: SIDRA SPANN MRN: [id number] date: 1995 Sex: F Assigned Patient Location: [facility] Current Patient Location: [facility] Accession/Order Number: [id number] Exam Date: 09/10/2024 08:06 Report Date: 09/10/2024 09:47 At the request of: GIULIA JAVAN Procedure: US OB transvaginal EXAMINATION: US OB [...] weeks 1 day Electronically authenticated by: MARBIN ROSA Date: 09/10/2024 09:47 Dictated By: Marbin Rosa M.D. Signed By: 09/10/24 1441 DD/ 0947 TD/TT: Book Coverer: [facility] HealthcareRadiology Study observation (narrative)[facility] HealthcareUS OB TRANSVAGINALOrdered By: Radiologist Radiology on 11-39-4115YIAGNevada Regional Medical Center Work Phone: Urinalysis macro (dipstick) panel (U)on 09-10-2024 Bilirubin, UANegativeNegative - 4(70) +++ mg/dLNOMS HealthcareBlood, UAPositive Negative - 50 Som/mcLNOMS HealthcareComment on above:smallClarity, UAClearNOMS HealthcareColor, UAYellowNOMS HealthcareGlucose, UANegativeNegative - 2000(110) ++++ mg/dLNOMS HealthcareInterpretation and review of laboratory resultsAbnormal [facility] HealthcareKetones, UANegativeNegative - 160(16) ++++ mg/dLNOMS Healthcare Leukocytes, UATraceNegative - 500+++ Eric/mcLNOMS HealthcareNitrite, UANegative Negative - PositiveNOMS HealthcarepH, UA5.55 - 9NOMS HealthcareProtein, UA NegativeNegative - 2000(20) ++++ mg/dLNevada Regional Medical CenterSpec Grav, UA1.0251 - 1.03 NOMS HealthcareUrobilinogen, UA0.20.2 - 12 mg/dLCaroMont Health Cytology Cervical or vaginal smear or scraping studyOrdered By: Jaimee Beckman on 98-52-6725EDKMNevada Regional Medical CenterCBC AUTO DIFFon 65-02-2136FMDA #0.0 103/ulNormal 0.0-0.1The [facility] SystemComment on above:Performed By: #### CBC #### [facility] [address] [address] [address] Diann DickersonBasophils/100 WBC (Bld)0.4 %Normal0.2-2.0[facility] Comment on above:Performed By: #### CBC #### [facility] [address] [address] [address] Diann Evans #0.0 103/ulNormal0.0-0.7The [facility] SystemComment on above: Performed By: #### CBC #### [facility] [address] [address] [address] Diann Arenasosinophils/100 WBC (Bld)0.8 %Critically low0.9-7.0The [facility] SystemComment on above:Performed By: #### CBC #### [facility] [address] [address] [address] Diann Arenasrythrocyte distribution width (RBC) [Ratio]11.0 %Skupfk99.0-15.0 The [facility] SystemComment on above:Performed By: #### CBC #### [facility] [address] [address] [address] Diann DickersonHematocrit (Bld) [Volume fraction]38.0 %Onohhd79.0-48.0The [facility] SystemComment on above:Performed By: #### CBC #### [facility] [address] [place] [address] Dr. Diann DickersonHemoglobin (Bld) [Mass/Vol]13.6 g/cTMsicgi98.0-16.0The [facility] SystemComment on above:Performed By: #### CBC #### [facility] [address] [place] [address] Dr. Diann Liz #0.02 10e3/ulNormal0.00-0.03The [facility] SystemComment on above:Performed By: #### CBC #### [facility] [address] [place] [address] Dr. Diann Liz %0.4 %Normal0.0-0.5The [facility] SystemComment on above: Performed By: #### CBC #### [facility] [address] [place] [address] Dr. Diann Sanchez #2.0 103/ulNormal1.2-3.8The [facility] SystemComment on above:Performed By: #### CBC #### [facility] [address] [place] [address] Dr. Diann Lagunahocytes/100 WBC (Bld)38.2 %Vinwyb16.5-60.0The [facility] SystemComment on above:Performed By: #### CBC #### [facility] [address] [place] [address] Dr. Diann William DIFF REQNONormalThe [facility] Health SystemComment on above: Performed By: #### CBC #### [facility] [address] [place] [address] Dr. Diann Dennison (RBC) [Entitic mass]31.6 hyVzhxkz70.7-34.0The [facility] SystemComment on above:Performed By: #### CBC #### [facility] [address] [place] [address] Dr. Diann Dennison (RBC) [Mass/Vol]35.8 g/dLCritically high29.9-35.2The [facility] SystemComment on above:Performed By: #### CBC #### [facility] [address] [place] [address] Dr. Diann Dennison (RBC) [Entitic vol]88.2 jLDyccgk07.0-99.0The [facility] SystemComment on above:Performed By: #### CBC #### [facility] [address] [place] [address] Dr. Diann Nava #0.4 103/ulNormal0.3-0.8The [facility] SystemComment on above:Performed By: #### CBC #### [facility] [address] [place] [address] Dr. Diann Iqblaocytes/100 WBC (Bld)7.7 %Normal1.7-12.0The [facility] Comment on above:Performed By: #### CBC #### [facility] [address] [place] [address] Dr. Diann Luna #2.7 103/ulNormal1.4-6.5The [facility] SystemComment on above:Performed By: #### CBC #### [facility] [address] [place] [address] Dr. Diann Ocampoutrophils/100 WBC (Bld)52.5 %Iimfox05.0-75.0The [facility] SystemComment on above:Performed By: #### CBC #### [facility] [address] [place] [address] Dr. Diann Patel mean volume (Bld) [Entitic vol]10.3 fLNormal9.5-13.5The [facility] SystemComment on above:Performed By: #### CBC #### [facility] [address] [place] [address] Dr. Diann GarridoT251 103/afRbecny833-142Uhm [facility] SystemComment on above: Performed By: #### CBC #### [facility] [address] [place] [address] Dr. Diann DickersonRBC4.31 106/ulNormal4.20-5.40The [facility] SystemComment on above:Performed By: #### CBC #### [facility] [address] [place] [address] Dr. Diann SolisBC5.2 103/ulNormal4.0-11.0[facility] on above: Performed By: #### CBC #### [facility] [address] [address] [address] Diann Pimentel URINE PROFILEon 69-86-4853Cajogeudm Ql (U)NegativeNormal NEGATIVEFisher-Titus Medical CenterComment on above:Performed By: #### PREGU, ERUR #### [facility] [address] [address] [address] Diann DickersonClarity (U)CLEARNormalCLEARFisher-Titus Medical CenterComment on above: Performed By: #### PREGU, ERUR #### [facility] [address] [address] [address] Diann Greene ()YELLOWNormalYELLOWPremier Health Miami Valley Hospital Northment on above: Performed By: #### PREGU, ERUR #### [facility] [address] [place] [address] Dr. Diann MerazINTERMOUNTAIN HEALTHCARE micrscopic examination will be performed if indicated. NormalFisher-Titus Medical CenterComment on above:Performed By: #### PREGU, ERUR #### [facility] [address] [address] [address] Diann DickersonGlucose Ql (U)NegativeNormalNEGATIVESouthview Medical Center on above:Performed By: #### PREGU, ERUR #### [facility] [address] [address] [address] Diann DickersonHemoglobin Ql (U)NegativeNormalNEGATIVEAultman Hospital on above:Performed By: #### PREGU, ERUR #### [facility] [address] [address] [address] Diann DickersonKetones Ql (U)NegativeNormalNEGATIVESouthview Medical Center on above:Performed By: #### PREGU, ERUR #### [facility] [address] [address] [address] Diann DickersonLEUKOCYTESNegativeNormalNEGATIVEFisher-Titus Medical CenterComuniversity [facility] on above:Performed By: #### PREGU, ERUR #### [facility] [address] [place] [address] Dr. Diann Devine Ql (U)NegativeNormalNEGATIVEThe [facility] SystemComment on above:Performed By: #### PREGU, ERUR #### [facility] [address] [place] [address] Dr. Diann DickersonpH (U)6.0 [pH]Normal5-9The [facility] SystemComment on above: Performed By: #### PREGU, ERUR #### [facility] [address] [place] [address] Dr. Diann DickersonSPEC GRAVITY1.304Bblofn5.005-<=1.025The [facility] SystemComment on above:Performed By: #### PREGU, ERUR #### [facility] [address] [place] [address] Dr. Diann Stokes PROTEINNegativeNormalNEGATIVE/ TRACEThe [facility] Comment on above:Performed By: #### PREGU, ERUR #### [facility] [address] [place] [address] Dr. Diann Adam MICRO INDNOT INDICATEDNormalThMercy Health Defiance HospitalComment on above:Performed By: #### PREGU, ERUR #### [facility] [address] [place] [address] Dr. Diann Mckoybilinogen Qn (U)1.0 {Guy'U}/dLNormal0.2 - 1.0The [facility] SystemComment on above:Performed By: #### PREGU, ERUR #### [facility] [address] [place] [address] Dr. Diann Cristobal A STREP CULTUREon 10-21-2022S. pyogenes Ag Ql (Unsp spec) Culture Observations: NEGATIVE FOR GROUP A STREPTOCOCCUS.NormalThe [facility] SystemComment on above: Performed By: #### GRASTCX, SSCRN #### [facility] [address] [place] [address] Dr. Diann WashburnGNANCY URon 35-20-1874CYBODGIVC, QUALNegativeNormalNEGATIVEThe [facility] SystemComment on above:Performed By: #### PREGU, ERUR #### [facility] [address] [address] [address] Diann CruzF CHEM 8 (BAS METB)on 46-72-4598Klnaf gap [Moles/Vol]12.1 mmol/LNormalThe [facility] SystemComment on above:Performed By: #### CBC #### [facility] [address] [address] [address] Diann DickersonCalcium [Mass/Vol]9.3 mg/dLNormal8.5-10.1The [facility] Comment on above:Performed By: #### CBC #### [facility] [address] [address] [address] Diann DickersonChloride [Moles/Vol]101 mmol/UYuvjbm53-091Zrc [facility] Comment on above:Performed By: #### CBC #### [facility] [address] [address] [address] Diann DickersonCO2 [Moles/Vol]28.3 mmol/RMopucj70.0-32.0The [facility] Comment on above:Performed By: #### CBC #### [facility] [address] [address] [address] Diann DickersonCreatinine [Mass/Vol]0.61 mg/dLNormal0.55-1.02The [facility] SystemComment on above:Performed By: #### CBC #### [facility] [address] [address] [address] Diann ArenasGFR-AF GAMBIAN>60Normal>=60The [facility] SystemComment on above:Performed By: #### CBC #### [facility] [address] [address] [address] Diann ArenasGFR-NON AF GAMBIAN>60Normal>=60The [facility] SystemComment on above:Performed By: #### CBC #### [facility] [address] [address] [address] Diann DickersonGlucose [Mass/Vol]122 mg/dLCritically zyyj23-575Bpg [facility] SystemComment on above:Performed By: #### CBC #### [facility] [address] [address] [address] Diann DickersonPotassium [Moles/Vol]3.4 mmol/LCritically low3.5-5.1The [facility] SystemComment on above:Performed By: #### CBC #### [facility] [address] [place] [address] Dr. Diann DickersonSodium [Moles/Vol]138 mmol/CHtbvgr280-129KfyFisher-Titus Medical Center Comment on above:Performed By: #### CBC #### [facility] [address] [place] [address] Dr. Diann DickersonUrea nitrogen [Mass/Vol]5.0 mg/dLCritically low7.0-18.0The [facility] SystemComment on above:Performed By: #### CBC #### [facility] [address] [place] [address] Dr. Diann Faust nitrogen/Creatinine [Mass ratio]8.2 mg/mgNormalThe [facility] SystemComment on above:Performed By: #### CBC #### [facility] [address] [place] [address] Dr. Diann KrugerREPT SCREENon 04-20-9828AAUBZ SCREEN ANegativeNormalNEGATIVEFisher-Titus Medical CenterComment on above:Performed By: #### GRASTCX, SSCRN #### [facility] [address] [place] [address] Dr. Diann DickersonCovid-19 PCR (CVDTB)on 15-08-5647SXIH-CoV-2 (COVID-19) RNA PREMA+probe Ql (Unsp spec)Not detectedNormalNOT DETECTEDThe [facility] Comment on above:Result Comment: This test is not yet approved or cleared by the [place] FDA. When there are no FDA-approved or cleared tests available, and other criteria are met, FDA can make tests available under an emergency access mechanism called an Emergency Use Authorization (EUA). The EUA for this test is supported by the [employer] F[employer] of Health and Human Service's (HHS's) declaration that circumstances exist to justify the emergency use of in vitro diagnostics for the detection and/or diagnosis of the virus that causes COVID- 19. This EUA will remain in effect (meaning [...] of clinical signs and symptoms consistent with SARS-CoV-2.Performed By: #### CVDTBH #### [place] [address] Dr[address] Diann Reis AND B AGon 71-50-3496XBCUWZAYYFMMJAdams County Regional Medical Center on above:Result Comment: Negative for Flu A protein angiten. Infection due to Flu A cannot be ruled out. FluA angiten in the sample may be below the detection limit of the test.Performed By: #### UACSIND #### [facility] [address] [place] [address] Dr. Diann DaiUBNEGAdams County Regional Medical Center on above: Result Comment: Negative for Flu B protein antigen. Infection due to Flu B cannot be ruled out. FluB antigen in the sample may be below the detection limit of the test.Performed By: #### UACSIND #### [facility] [address] [place] [address] Dr. Diann Ries AGNegativeNormalNEGATIVE SEE COMMENTThe Regional Medical Center on above:Performed By: #### UACSIND #### [facility] [address] [place] [address] Dr. Diann Robbins AGNegativeNormalNEGATIVE SEE COMMENTThe Regional Medical Center on above:Performed By: #### UACSIND #### [facility] [address] [place] [address] Dr. Diann Sanchez AUTO DIFFon 50-34-2130YRCE #0.0 103/ulNormal0.0-0.1The [facility] SystemComment on above:Performed By: #### CVDTBH #### [facility] [address] [place] [address] Dr. Diann DickersonBasophils/100 WBC (Bld)0.4 %Normal0.2-2.0[facility] Comment on above:Performed By: #### CVDTBH #### [facility] [address] [place] [address] Dr. Diann Evans #0.1 103/ulNormal0.0-0.7The [facility] SystemComment on above: Performed By: #### CVDTBH #### [facility] [address] [place] [address] Dr. Diann Arenasosinophils/100 WBC (Bld)0.6 %Critically low0.9-7.0The [facility] SystemComment on above:Performed By: #### CVDTBH #### [facility] [address] [place] [address] Dr. Diann Arenasrythrocyte distribution width (RBC) [Ratio]12.3 %Wxmsey78.0-15.0 The [facility] SystemComment on above:Performed By: #### CVDTBH #### [facility] [address] [place] [address] Dr. Diann DickersonHematocrit (Bld) [Volume fraction]35.5 %Critically low36.0-48.0 The [facility] SystemComment on above:Performed By: #### CVDTBH #### [facility] [address] [place] [address] Dr. Diann DickersonHemoglobin (Bld) [Mass/Vol]12.3 g/xPWiqlyi93.0-16.0The [facility] SystemComment on above:Performed By: #### CVDTBH #### [facility] [address] [place] [address] Dr. Diann Liz #0.07 10e3/ulCritically high0.00-0.03The [facility] Comment on above:Performed By: #### CVDTBH #### [facility] [address] [address] [address] Diann Liz %0.7 %Critically high0.0-0.5The [facility] SystemComment on above:Performed By: #### CVDTBH #### [facility] [address] [address] [address] Diann Sanchez #1.3 103/ulNormal1.2-3.8The [facility] SystemComment on above:Performed By: #### CVDTBH #### [facility] [address] [place] [address] Dr. Diann Laugnahocytes/100 WBC (Bld)13.9 %Critically low20.5-60.0The [facility] SystemComment on above:Performed By: #### CVDTBH #### [facility] [address] [place] [address] Dr. Diann PiersonUAL DIFF REQNONormalThe [facility] SystemComment on above: Performed By: #### CVDTBH #### [facility] [address] [place] [address] Dr. Diann Dennison (RBC) [Entitic mass]34.1 pgCritically high26.7-34.0The [facility] State Health SystemComment on above:Performed By: #### CVDTBH #### [facility] [address] [place] [address] Dr. Diann Dennison (RBC) [Mass/Vol]34.6 g/pALgpnsx72.9-35.2The [facility] Health SystemComment on above:Performed By: #### CVDTBH #### [facility] [address] [place] [address] Dr. Diann Dennison (RBC) [Entitic vol]98.3 eITceloo38.0-99.0The [facility] SystemComment on above:Performed By: #### CVDTBH #### [facility] [address] [place] [address] Dr. Diann Nava #1.0 103/ulCritically high0.3-0.8The [facility] Comment on above:Performed By: #### CVDTBH #### [facility] [address] [place] [address] Dr. Diann Iqbalocytes/100 WBC (Bld)10.5 %Normal1.7-12.0[facility] Comment on above:Performed By: #### CVDTBH #### [facility] [address] [place] [address] Dr. Diann Luna #6.9 103/ulCritically high1.4-6.5The [facility] Comment on above:Performed By: #### CVDTBH #### [facility] [address] [place] [address] Dr. Diann Ocampoutrophils/100 WBC (Bld)73.9 %Uhukxt80.0-75.0The [facility] SystemComment on above:Performed By: #### CVDTBH #### [facility] [address] [place] [address] Dr. Diann Mclaughlinlet mean volume (Bld) [Entitic vol]10.8 fLNormal9.5-13.5The [facility] SystemComment on above:Performed By: #### CVDTBH #### [facility] [address] [place] [address] Dr. Diann DickersonPLT177 103/qgXpefni977-117Crk [facility] SystemComment on above: Performed By: #### CVDTBH #### [facility] [address] [place] [address] Dr. Diann DickersonRBC3.61 106/ulCritically low4.20-5.40The [facility] SystemComment on above:Performed By: #### CVDTBH #### [facility] [address] [place] [address] Dr. Diann DickersonWBC9.4 103/ulNormal4.0-11.0The [facility] SystemComment on above: Performed By: #### CVDTBH #### [facility] [address] [place] [address] Dr. Diann Sanchez AUTO DIFFon [id number] #0.0 103/ulNormal0.0-0.1The [facility] SystemComment on above:Performed By: #### CBC #### [facility] [address] [place] [address] Dr. Diann DickersonBasophils/100 WBC (Bld)0.3 %Normal0.2-2.0[facility] Comment on above:Performed By: #### CBC #### [facility] [address] [address] [address] Diann Evans #0.1 103/ulNormal0.0-0.7The [facility] SystemComment on above: Performed By: #### CBC #### [facility] [address] [place] [address] Dr. Diann Arenasosinophils/100 WBC (Bld)0.6 %Critically low0.9-7.0The [facility] SystemComment on above:Performed By: #### CBC #### [facility] [address] [place] [address] Dr. Diann Arenasrythrocyte distribution width (RBC) [Ratio]12.4 %Vakknf02.0-15.0 The [facility] SystemComment on above:Performed By: #### CBC #### [facility] [address] [place] [address] Dr. Diann DickersonHematocrit (Bld) [Volume fraction]38.0 %Qrelef55.0-48.0The [facility] SystemComment on above:Performed By: #### CBC #### [facility] [address] [place] [address] Dr. Diann DickersonHemoglobin (Bld) [Mass/Vol]13.1 g/lRKtznhw17.0-16.0The [facility] SystemComment on above:Performed By: #### CBC #### [facility] [address] [place] [address] Dr. Diann Liz #0.07 10e3/ulCritically high0.00-0.03The [facility] Comment on above:Performed By: #### CBC #### [facility] [address] [address] [address] Diann Liz %0.7 %Critically high0.0-0.5[facility] on above:Performed By: #### CBC #### [facility] [address] [place] [address] Dr. Diann Sanchez #1.5 103/ulNormal1.2-3.8The [facility] SystemComment on above:Performed By: #### CBC #### [facility] [address] [place] [address] Dr. Diann Lagunahocytes/100 WBC (Bld)15.6 %Critically low20.5-60.0[facility] on above:Performed By: #### CBC #### [facility] [address] [place] [address] Dr. Diann PiersonUAL DIFF REQNONormalThe [facility] Health SystemComment on above: Performed By: #### CBC #### [facility] [address] [place] [address] Dr. Diann Dennison (RBC) [Entitic mass]33.8 voJqyyon37.7-34.0[facility] on above:Performed By: #### CBC #### [facility] [address] [place] [address] Dr. Diann Dennison (RBC) [Mass/Vol]34.5 g/wSCtupwi17.9-35.2[facility] on above:Performed By: #### CBC #### [facility] [address] [place] [address] Dr. Diann Dennison (RBC) [Entitic vol]97.9 wPQnxusl13.0-99.0[facility] on above:Performed By: #### CBC #### [facility] [address] [place] [address] Dr. Diann Nava #0.8 103/ulNormal0.3-0.8The [facility] SystemCom[facility] on above:Performed By: #### CBC #### [facility] [address] [place] [address] Dr. Diann Iqbalocytes/100 WBC (Bld)8.2 %Normal1.7-12.0[facility] Comment on above:Performed By: #### CBC #### [facility] [address] [place] [address] Dr. Dainn OcampoUT #7.1 103/ulCritically high1.4-6.5[facility] Comment on above:Performed By: #### CBC #### [facility] [address] [place] [address] Dr. Diann Ocampoutrophils/100 WBC (Bld)74.6 %Irjayn19.0-75.0The [facility] SystemComment on above:Performed By: #### CBC #### [facility] [address] [place] [address] Dr. Diann Mclaughlinlet mean volume (Bld) [Entitic vol]10.7 fLNormal9.5-13.5The [facility] SystemComment on above:Performed By: #### CBC #### [facility] [address] [place] [address] Dr. Diann DickersonPLT172 103/akIeetmx177-794Fxt [facility] SystemComment on above: Performed By: #### CBC #### [facility] [address] [place] [address] Dr. Diann DickersonRBC3.88 106/ulCritically low4.20-5.40The [facility] SystemComment on above:Performed By: #### CBC #### [facility] [address] [place] [address] Dr. Diann DickersonWBC9.5 103/ulNormal4.0-11.0The [facility] SystemComment on above: Performed By: #### CBC #### [facility] [address] [place] [address] Dr. Diann DickersonCovid-19 PCR (CVDTBH)on 93-99-9942CZHN-CoV-2 (COVID-19) RNA PREMA+probe Ql (Unsp spec)Not detectedNormalNOT DETECTEDFisher-Titus Medical Center Comment on above:Result Comment: When diagnostic testing is negative, the [...] for this test is supported by the [employer] of Health and Human Service's declaration that circumstances exist to justify the emergency use of in vitro diagnostics for the detection and/or diagnosis of the virus that causes COVID-19. This EUA will remain in effect for the duration of the COVID-19 declaration justifying emergency of IVDs, unless it is terminated or revoked by the FDA (after which the test may no longer be used).Performed By: #### CVDTBH #### [facility] [address] [place] [address] Dr. Diann DickersonDRUG SCREEN RAPID (URINE)on 62-81-0668DTQGczzxmyzAqobhfADVLIDKA [facility] CenterComment on above:Performed By: #### CBC #### [facility] [address] [place] [address] Dr. Diann DickersonBARNegativeNormalNEGATIVEFisher-Titus Medical CenterComment on above: Performed By: #### CBC #### [facility] [address] [place] [address] Dr. Diann DickersonBUPNegativeNormalNEGATIVEFisher-Titus Medical CenterComment on above: Performed By: #### CBC #### [facility] [address] [place] [address] Dr. Diann DickersonBZONegativeNormalNEGATIVEFisher-Titus Medical CenterComment on above: Performed By: #### CBC #### [facility] [address] [place] [address] Dr. Diann DickersonCOCNegativeNormalNEGATIVEFisher-Titus Medical CenterComment on above: Performed By: #### CBC #### [facility] [address] [place] [address] Dr. Diann MárquezMercy Health St. Vincent Medical Centerment on above: Result Comment: AMP (Amphetamine): 500ng/mL, BAR (Barbituates): 200 ng/mL, BZO (Benzodiazepines): 150 ng/mL, BUP (Buprenorphine): 10 ng/mL, KRYS (Cocaine): 150 ng/mL, mAMP (Methamphetamine): 500 ng/mL, MTD (Methadone): 200 ng/mL, OPI (Opiates): 100 ng/mL, OXY (Oxycodone): 100 ng/mL, PCP (Phencyclidine): 25 ng/mL, PPX (Propoxyphene): 300 ng/mL, THC (Cannabinoids): 50 ng/mL, TCA (Trycyclic Antidepressants): 300 ng/mLPerformed By: #### CBC #### [facility] [address] [place] [address] Dr. Diann DickersonDRUG CUT HEADERDRUG CLASS TEST SYSTEM CUT-OFF CONCENTRATIONS ARE FOLLOWS:NormalThe [facility] SystemComun[facility] on above:Performed By: #### CBC #### [facility] [address] [place] [address] Dr. Diann DickersonmAMPNegativeNormalNEGATIVEFisher-Titus Medical CenterComuniversity of [facility] on above: Performed By: #### CBC #### [facility] [address] [place] [address] Dr. Diann DickersonMTDNegativeNormalNEGATIVEFisher-Titus Medical CenterComun[facility] of [facility] on above: Performed By: #### CBC #### [facility] [address] [place] [address] Dr. Diann BrooksINegativeNormalNEGATIVEFisher-Titus Medical CenterComuniversity of [facility] on above: Performed By: #### CBC #### [facility] [address] [place] [address] Dr. Diann DickersonOXYNegativeNormalNEGATIVESouthview Medical Center on above: Performed By: #### CBC #### [facility] [address] [place] [address] Dr. Diann DickersonPCPNegativeNormalNEGATIVEThe Lisseth HospitalComment on above: Performed By: #### CBC #### [facility] [address] [place] [address] Dr. Diann DickersonPPXNegativeNormalNEGSouthwest General Health CenterComment on above: Performed By: #### CBC #### [facility] [address] [place] [address] Dr. Diann DickersonTCANegativeNormalNEGSouthwest General Health CenterComment on above: Performed By: #### CBC #### [facility] [address] [place] [address] Dr. Diann DickersonTHCNegativeNormalNEGSouthwest General Health CenterComment on above: Performed By: #### CBC #### [facility] [address] [place] [address] Dr. Diann DickersonGROUP B STREP CULTUREon 03-14-2022. agalactiae Ag Ql (Unsp spec) Culture Observations: [...] Vancomycin <=0.12 S F Tetracycline >=16 R FNormalFisher-Titus Medical CenterComment on above:Performed By: #### CBC #### [facility] [address] [place] [address] Dr. Diann Mckeon PREG GROWTHon [id number] PREG GROWTHEXAMINATION: US PREG GROWTH HISTORY: Excessive growth affecting [...] authenticated by: JAYSHREE DEL RIO Date: 2022-03-04 17:33NormalThMercy Health Defiance HospitalAMYLASEon 92-22-8703Orviyoe [Catalytic activity/Vol]30 U/L Rsblsk19-921Mzg [facility] SystemComment on above:Performed By: #### CVDTBH #### [facility] [address] [place] [address] Dr. Diann Moy 97-62-6618Xrjy nitrogen [Mass/Vol]7.0 mg/dLNormal7.0-18.0 The [facility] SystemComment on above:Performed By: #### ANAYATBH #### [facility] [address] [place] [address] Dr. Diann Sanchez AUTO DIFFon [id number] #0.0 103/ulNormal0.0-0.1The [facility] SystemComment on above:Performed By: #### ANAYATBH #### [facility] [address] [place] [address] Dr. Diann DickersonBasophils/100 WBC (Bld)0.3 %Normal0.2-2.0[facility] Comment on above:Performed By: #### CVDTBH #### [facility] [address] [place] [address] Dr. Diann Evans #0.1 103/ulNormal0.0-0.7The [facility] SystemComment on above: Performed By: #### CVDTBH #### [facility] [address] [place] [address] Dr. Diann Arenasosinophils/100 WBC (Bld)0.6 %Critically low0.9-7.0The [facility] SystemComment on above:Performed By: #### CVDTBH #### [facility] [address] [place] [address] Dr. Diann Arenasrythrocyte distribution width (RBC) [Ratio]12.6 %Pmdxgm70.0-15.0 The [facility] SystemComment on above:Performed By: #### CVDTBH #### [facility] [address] [place] [address] Dr. Diann DickersonHematocrit (Bld) [Volume fraction]36.8 %Ecttif90.0-48.0The [facility] SystemComment on above:Performed By: #### CVDTBH #### [facility] [address] [place] [address] Dr. Diann DickersonHemoglobin (Bld) [Mass/Vol]12.6 g/fUFisikz56.0-16.0[facility] Medical CenterComment on above:Performed By: #### CVDTBH #### [facility] [address] [place] [address] Dr. Diann Liz #0.06 10e3/ulCritically high0.00-0.03[facility] Comment on above:Performed By: #### CVDTBH #### [facility] [address] [place] [address] Dr. Diann Liz %0.7 %Critically high0.0-0.5ThMercy Health Defiance HospitalComment on above:Performed By: #### CVDTBH #### [facility] [address] [place] [address] Dr. Diann LagunaH #0.7 103/ulCritically low1.2-3.8The [facility] Comment on above:Performed By: #### CVDTBH #### [facility] [address] [place] [address] Dr. Diann Sidhumphocytes/100 WBC (Bld)7.6 %Critically low20.5-60.0[facility] Medical CenterComment on above:Performed By: #### CVDTBH #### [facility] [address] [place] [address] Dr. Diann William DIFF REQNONormalThe [facility] SystemComment on above: Performed By: #### CVDTBH #### [facility] [address] [place] [address] Dr. Diann Dennison (RBC) [Entitic mass]33.3 kvXdpofj37.7-34.0The [facility] SystemComment on above:Performed By: #### CVDTBH #### [facility] [address] [place] [address] Dr. Diann Dennison (RBC) [Mass/Vol]34.2 g/jZCvrwpe62.9-35.2The [facility] SystemComment on above:Performed By: #### CVDTBH #### [facility] [address] [place] [address] Dr. Diann Dennison (RBC) [Entitic vol]97.4 gOWaugoh30.0-99.0The [facility] SystemComment on above:Performed By: #### CVDTBH #### [facility] [address] [place] [address] Dr. Diann Nava #0.5 103/ulNormal0.3-0.8The [facility] SystemComment on above:Performed By: #### CVDTBH #### [facility] [address] [place] [address] Dr. Diann Iqbalocytes/100 WBC (Bld)5.3 %Normal1.7-12.0[facility] Comment on above:Performed By: #### CVDTBH #### [facility] [address] [place] [address] Dr. Diann Luna #7.6 103/ulCritically high1.4-6.5The [facility] Comment on above:Performed By: #### CVDTBH #### [facility] [address] [place] [address] Dr. Diann Ocampoutrophils/100 WBC (Bld)85.5 %Critically high43.0-75.0The [facility] SystemComment on above:Performed By: #### CVDTBH #### [facility] [address] [place] [address] Dr. Diann Mclaughlinlet mean volume (Bld) [Entitic vol]10.2 fLNormal9.5-13.5The [facility] SystemComment on above:Performed By: #### CVDTBH #### [facility] [address] [place] [address] Dr. Diann DickersonPLT198 103/mrCimiek904-107Rwy [facility] SystemComment on above: Performed By: #### CVDTBH #### [facility] [address] [place] [address] Dr. Diann DickersonRBC3.78 106/ulCritically low4.20-5.40The [facility] SystemComment on above:Performed By: #### CVDTBH #### [facility] [address] [place] [address] Dr. Diann DickersonWBC8.9 103/ulNormal4.0-11.0The [facility] SystemComment on above: Performed By: #### CVDTBH #### [facility] [address] [place] [address] Dr. Diann DickersonCREATININEon 72-95-6945Pgrkacxiwl [Mass/Vol]0.53 mg/dLCritically low0.55-1.02The [facility] SystemComun[facility] on above:Performed By: #### CVDTBH #### [facility] [address] [place] [address] Dr. Diann ArenasGFR-AF GAMBIAN>60Normal>=60The [facility] SystemComment on above:Performed By: #### CVDTBH #### [facility] [address] [place] [address] Dr. Diann ArenasGFR-NON AF GAMBIAN>60Normal>=60The [facility] SystemComment on above:Performed By: #### CVDTBH #### [facility] [address] [place] [address] Dr. Diann ArenasLECTROLYTESon 14-15-1429Ushxn gap [Moles/Vol]9.6 mmol/LNormalThe [facility] SystemComment on above:Performed By: #### CVDTBH #### [facility] [address] [place] [address] Dr. Diann DickersonChloride [Moles/Vol]106 mmol/QXkwjqw22-465Zrn [facility] Comment on above:Performed By: #### CVDTBH #### [facility] [address] [place] [address] Dr. Diann DickersonCO2 [Moles/Vol]23.5 mmol/KEfwysx75.0-32.0The [facility] Comment on above:Performed By: #### CVDTBH #### [facility] [address] [place] [address] Dr. Diann DickersonPotassium [Moles/Vol]4.1 mmol/LNormal3.5-5.1[facility] Comment on above:Performed By: #### CVDTBH #### [facility] [address] [place] [address] Dr. Diann Kodium [Moles/Vol]135 mmol/LCritically kmb663-889Xqp [facility] SystemComment on above:Performed By: #### CVDTBH #### [facility] [address] [place] [address] Dr. Diann Stephenson 39-77-8600XOX [Catalytic activity/Vol]15 U/BOvgmvx98-64Ffn [facility] SystemComment on above:Performed By: #### CVDTBH #### [facility] [address] [place] [address] Dr. Diann Edwards 73-45-6672CDS [Catalytic activity/Vol]19 U/URpzlhs73-74Daw [facility] SystemComment on above:Performed By: #### CVDTBH #### [facility] [address] [place] [address] Dr. Diann Jarquin 43-28-6760DGI8.409 uIU/mLNormal0.470-4.680The [facility] SystemComment on above:Performed By: #### CVDTBH #### [facility] [address] [address] [address] Diann Smith [facility] HospitalComment on above: Result Comment: <0.34 UIU/ml HYPERTHYROID 0.34-5.60 UIU/ml EUTHYROID >5.60 UIU/ml HYPOTHYROIDPerformed By: #### CVDTBH #### [facility] [address] [address] [address] Diann Stokes (CLEAN/CATCH) SUPERVISOR STAGE CARPENTRY/MICRO IF IND.on 20-84-4435Kzsqwhjth Ql (U) NegativeNormalNEGATIVEFisher-Titus Medical CenterComment on above:Performed By: #### UACSIND #### [facility] [address] [place] [address] Dr. Diann Pantojaarity (U)CLEARNormalCLEARFisher-Titus Medical CenterComment on above: Performed By: #### UACSIND #### [facility] [address] [place] [address] Dr. Diann Morganlor (U)YELLOWNormalYELLOWFisher-Titus Medical CenterComment on above: Performed By: #### UACSIND #### [facility] [address] [address] [address] Diann DickersonGlucose Ql (U)NegativeNormalNEGATIVEFisher-Titus Medical CenterComment on above:Performed By: #### UACSIND #### [facility] [address] [place] [address] Dr. Diann DickersonHemoglobin Ql (U)NegativeNormalNEGSouthwest General Health Center Comment on above:Performed By: #### UACSIND #### [facility] [address] [place] [address] Dr. Diann DickersonKetones Ql (U)NegativeNormalNEGATIVEFisher-Titus Medical CenterComment on above:Performed By: #### UACSIND #### [facility] [address] [place] [address] Dr. Diann DickersonLEUKOCYTESNegativeNormalNEGATIVEFisher-Titus Medical CenterComment on above:Performed By: #### UACSIND #### [facility] [address] [place] [address] Dr. Diann Devine Ql (U)NegativeNormalNEGATIVEThe [facility] SystemComment on above:Performed By: #### UACSIND #### [facility] [address] [place] [address] Dr. Diann DickersonpH (U)8.5 [pH]Normal5-9The [facility] SystemComment on above: Performed By: #### UACSIND #### [facility] [address] [place] [address] Dr. Diann DickersonSPEC GRAVITY1.831Ikmukt9.005-<=1.025The [facility] SystemComment on above:Performed By: #### UACSIND #### [facility] [address] [place] [address] Dr. Diann Stokes PROTEINNegativeNormalNEGATIVE/ TRACEThe [facility] Comment on above:Performed By: #### UACSIND #### [facility] [address] [place] [address] Dr. Diann Adam MICRO INDNOT INDICATEDNormalThe [facility] SystemComment on above:Performed By: #### UACSIND #### [facility] [address] [place] [address] Dr. Diann Mckoybilinogen Qn (U)0.2 {Guy'U}/dLNormal0.2 - 1.0[facility] Medical CenterComment on above:Performed By: #### UACSIND #### [facility] [address] [place] [address] Dr. Diann Mckeon PREG BIOPHY W NON STRESSon 35-88-6708MB PREG BIOPHY W NON STRESSEXAMINATION: US PREG BIOPHY W NON STRESS HISTORY: [...] profile score: 8.0 Electronically authenticated by: MARBIN ROSA Date: 2022-01-18 10:45NormThe Surgical Hospital at Southwoodsjeffery [facility] SystemUS PREG CERVICAL LENGTHon [id number] PREG CERVICAL LENGTH EXAMINATION: US PREG CERVICAL LENGTH HISTORY: Nausea and vomiting COMPARISON: 12/31/2021 FINDINGS: position: Cephalic Heart rate: 141 bpm Cervix: 4.7 cm, closed Clinical age: 20 weeks 5 days Clinical ANGELA: 04/07/2022 IMPRESSION: Closed cervix measuring 4.7 cm in length Electronically authenticated by: MARBIN ROSA Date: 2022-01-18 10:46NormCleveland Clinic Luther[facility] Hospital HospitalCULTURE URINEon 31-97-7031GBHPUWR URINECulture Observations: No growthProMedica Bay Park HospitalComment on above:Performed By: #### CBC #### [facility] [address] [place] [address] Dr. Diann Mckeon PREG AMNIOTIC FLUID VOLUMEon 39-12-5740TY PREG AMNIOTIC FLUID VOLUMEEXAMINATION: US PREG AMNIOTIC FLUID VOLUME HISTORY: Noninflammatory [...] authenticated by: JAYSHREE DEL RIO Date: 2021-12-31 12:41NoOur Lady of Mercy HospitalGLUCOSE - 1HRon 73-04-5210Hbftllr [Mass/Vol]134 mg/dLCritically ejbt38-986Hhd [facility] SystemComment on above:Performed By: #### GLU1HR #### [facility] [address] [place] [address] Dr. Diann DickersonHEMOGRAM AND PLATELon 96-10-2853Ypwgatfyzo (Bld) [Volume fraction]36.7 %Hwenfr78.0-48.0The [facility] SystemComment on above:Performed By: #### CBC #### [facility] [address] [place] [address] Dr. Diann DickersonHemoglobin (Bld) [Mass/Vol]12.5 g/wQSkricd67.0-16.0The [facility] SystemComment on above:Performed By: #### CBC #### [facility] [address] [place] [address] Dr. Diann Dennison (RBC) [Entitic mass]33.2 etSprijf01.7-34.0The [facility] SystemComment on above:Performed By: #### CBC #### [facility] [address] [place] [address] Dr. Diann DickersonMEMORIAL [facility] (RBC) [Mass/Vol]34.1 g/mLQdkmdr11.9-35.2The [facility] State Health SystemComment on above:Performed By: #### CBC #### [facility] [address] [place] [address] Dr. Diann Dennison (RBC) [Entitic vol]97.6 hHIkeyvh08.0-99.0The [facility] State Health SystemComment on above:Performed By: #### CBC #### [facility] [address] [place] [address] Dr. Diann DickersonPLT207 103/tyVafcyf762-412Fhc [facility] State Health SystemComment on above: Performed By: #### CBC #### [facility] [address] [place] [address] Dr. Diann DickersonRBC3.76 106/ulCritically low4.20-5.40The [place] State Health SystemComment on above:Performed By: #### CBC #### [facility] [address] [place] [address] Dr. Diann DickersonWBC6.3 103/ulNormal4.0-11.0The [facility] SystemComun[facility] on above: Performed By: #### CBC #### [facility] [address] [place] [address] Dr. Diann Mckeon PREG ANATOMY SINGLEon 75-23-6551XF PREG ANATOMY SINGLE EXAMINATION: US PREG ANATOMY [...] FL: 3.4 cm 20 weeks 5 days EFW:0.429503; FL/AC: 0.228095 FL/BPD: 0.909946 HC/AC: 1.082099 GESTATIONAL AGE: Age by EDC: 20 weeks 1 day ANGELA by EDC: 04/07/2022 Age by current US: 20 weeks 4 day ANGELA by current US: 04/04/2022 IMPRESSION: Normal anatomy scan *Reference: [facility] Practice Guideline for the performance of Obstetric Ultrasound Examinations, June 22, 2007. Electronically authenticated by: MARBIN ROSA Date: 2021-11-20 07:[address] [place] [address] Vital Signs Date TimeVital SignValuePerforming FacodzvpxCobcydcq22-59-4444 08:50-0400Body kyleko267.3 cmCorey [employer] Work Phone: [facility] CenterHqyicnsvxc22-90-3591 08:50-0400Body mass index (BMI) [Ratio]27.76 kg/h2Amult [employer] Work Phone: [facility] CenterWcjeuuzbuv46-42-1639 08:50-0400Body .28 kgCore [employer] Work Phone: [facility] CenterUpnfquopfh33-45-8766 08:50-0400Diastolic blood xfetmvoz75 mm[Hg][facility] [employer] Work Phone: [phone] [place], [place] [address]Ubqwzkllgz82-71-6477 08:50-0400Systolic blood ujobqilu206 mm[Hg]Giulia Javan DO Work Phone: [phone] [place], [place] [address]Vmpllhnmgc14-96-6556 13:26-0400Body mass index (BMI) [Ratio]31.01 kg/f9Lnxzs Javan DO Work Phone: [facility] CenterKamxlccqki92-11-0239 13:26-0400Body pehcyd61.25 kgCorey Javan DO Work Phone: [phone] [place], [place] [address]Hvztanpmew68-50-5938 13:26-0400Diastolic blood txplqjes62 mm[Hg]Giulia Javan DO Work Phone: [phone] [place], [place] [address]Hjcsqrqyhq37-73-2617 13:26-0400Systolic blood mm[Hg]Giulia Javan DO Work Phone: [phone] [place], [place] [address]Mwfbdyudyw75-80-0902 15:54-0400Body mass index (BMI) [Ratio]30.72 kg/q8Jikir Javan DO Work Phone: [phone] [place], [place] [address]Cnovfxbibr15-95-5878 15:54-0400Body dbunwq14.35 kgCorey Javan DO Work Phone: [phone] [place], [place] [address]Msoaiqhpxr70-14-5640 15:54-0400Diastolic blood jnansixn56 mm[Hg]Giulia Javan DO Work Phone: [facility] CenterLvlfbtjhuj17-50-2366 15:54-0400Systolic blood gyafrxpp243 mm[Hg]Giulia Javan DO Work Phone: [phone] [place], [place] [address]Ppkdwavnnx25-94-5097 10:38-0400Body mass index (BMI) [Ratio]30.42 kg/f5Civfc Javan DO Work Phone: [phone] [place], [place] [address]Ctikegjlsa77-06-0700 10:38-0400Body gonocv62.44 kgCorey Javan DO Work Phone: [phone]-[facility] CenterToxyjrfgrr80-22-3702 10:38-0400Diastolic blood xnrdtrqi80 mm[Hg]Giulia Javan DO Work Phone: [facility] CenterVlyofubkgx87-47-2080 10:38-0400Systolic blood juadgohp628 mm[Hg]Giulia Javan DO Work Phone: [facility] CenterJsvsymevpb74-49-5890 09:24-0400Body mass index (BMI) [Ratio]30.57 kg/m2Margret Tinocokaren PETER Work Phone: [facility] CenterOizhueqlio43-49-4510 09:24-0400Body rsyftk26.89 kgMargret Sol PETER Work Phone: [facility] CenterVgsirdfxdl19-39-9173 09:24-0400Diastolic blood yycdwvnj58 mm[Hg]Margret Sol PETER Work Phone: [facility] CenterFmbpdjipbw71-16-2226 09:24-0400Systolic blood mm[Hg]Margret Sol PETER Work Phone: [facility] CenterQixixykhkr46-39-4856 11:20-0400Body mass index (BMI) [Ratio]30.42 kg/c0Oofhh Javan DO Work Phone: [facility] CenterWjtnbmzxwz36-46-2578 11:20-0400Body bbkrpo52.44 kgCorey Javan DO Work Phone: [facility] CenterFzhldbovai97-56-0660 11:20-0400Diastolic blood mm[Hg]Giulia Javan DO Work Phone: [facility] CenterIksggkyfzl81-06-1033 11:20-0400Systolic blood zoosmghw093 mm[Hg]Giulia Javan DO Work Phone: [phone] [place], [place] [address]Rqmqsgtnvr95-09-1485 15:28-0400Body mass index (BMI) [Ratio]29.98 kg/l2Qhwgk Javan DO Work Phone: [facility] CenterHozjmxfzed64-97-3104 15:28-0400Body .08 kgCorey Javan DO Work Phone: [facility] CenterQgkerdwvpk93-97-9916 15:28-0400Diastolic blood mm[Hg]Giulia Javan DO Work Phone: 1(419)483-[address] [place], [place] [address]Ubsbyjgpbb46-65-3286 15:28-0400Systolic blood scxegefk060 mm[Hg]Giulia Javan DO Work Phone: [phone] [place], [place] [address]Dnayiuskax32-70-0060 10:48-0400Body mass index (BMI) [Ratio]29.09 kg/z7Xsqvi Javan DO Work Phone: [phone])150-[address] [place], [place] [address]Hokoehokyb49-45-4994 10:48-0400Body axfvpa60.36 kgCorey Javan DO Work Phone: [phone] [place], [place] [address]Pmpjybvoga10-90-5691 10:48-0400Diastolic blood teynhehj29 mm[Hg]Giulia Javan DO Work Phone: [phone])785-[address] [place], [place] [address]Xozdfyfayq75-29-9909 10:48-0400Systolic blood ynlivkpy870 mm[Hg]Giulia Javan DO Work Phone: [phone])[facility] [place], [place] [address]Gqflxgawbs72-85-5670 16:28-0400Body mass index (BMI) [Ratio]28.8 kg/k1Onhgv Javan DO Work Phone: 1(962)[facility] [place], [place] [address]Uxiovelbhv15-95-7181 16:28-0400Body .45 kgCorey Javan DO Work Phone: 1(400)[facility] [place], [place] [address]Cmlhiktoty66-52-6854 16:28-0400Diastolic blood kevbfimx14 mm[Hg]Giulia Javan DO Work Phone: 1(180)[facility] [place], [place] [address]Ppnlzmyhpg08-96-1838 16:28-0400Systolic blood sqmkunhl911 mm[Hg]Giulia Javan DO Work Phone: 1(516)881-[address] [place], [place] [address]Ceodsxywpv34-17-6386 13:17-0400Body mass index (BMI) [Ratio]28.21 kg/j1Tefdw Javan DO Work Phone: 1(406)[facility] [place], [place] [address]Bphlfkhoxo60-34-6172 13:17-0400Body .64 kgCorey Javan DO Work Phone: [phone])011-[address] [place], [place] [address]Unnzwseoaw04-25-8417 13:17-0400Diastolic blood jyifbigu41 mm[Hg]Giulia Javan DO Work Phone: [facility] CenterQdyjiwrhkn06-90-6533 13:17-0400Systolic blood mm[Hg]Giulia Javan DO Work Phone: [facility] CenterYohmvnitxv64-13-0408 09:19-0500Body mass index (BMI) [Ratio]27.73 kg/m2Margret Mcgovern ROME Work Phone: 1(585)535-[address] [place], [place] [address]Lcopuinepd48-73-6199 09:19-0500Body tskooy74.19 kgMargret Mcgovern PA Work Phone: [phone]-[facility] CenterXxojjksudj24-30-5526 09:19-0500Diastolic blood qwjohglm37 mm[Hg]Margret Sol PETER Work Phone: 1(414)001-[address] [place], [place] [address]Wakparfrym66-22-2154 09:19-0500Systolic blood kpziengk906 mm[Hg]Margert Mcgovern ROME Work Phone: 1(094)331-[address] [place], [place] [address]Ftjpbikeub16-37-8700 10:57-0500Body mass index (BMI) [Ratio]27.65 kg/i4Bsqca Javan DO Work Phone: 1([phone])593-[address] [place], [place] [address]Mmlgaapaow90-28-6886 10:57-0500Body onjgxr42.94 kgCorey Javan DO Work Phone: 1(616)009-[address] [place], [place] [address]Vzpriucldp47-34-2719 16:40-0500Body mass index (BMI) [Ratio]27.59 kg/u8Pzwnt Javan DO Work Phone: 1(584)308-[address] [place], [place] [address]Razrlksgeq58-23-5475 16:40-0500Body pfeqzv28.73 kgCorey Javan DO Work Phone: 1(646)647-[address] [place], [place] [address]Nkgmmdvtbl25-21-4245 16:40-0500Diastolic blood pgxsnpyk53 mm[Hg]Giulia Javan DO Work Phone: 1(528)493-[address] [place], [place] [address]Btjefrsigy86-33-4632 16:40-0500Systolic blood kyuryijt562 mm[Hg]Giulia Javan DO Work Phone: 1(898)838-[address] [place], [place] [address]Oprsrafyvv32-20-9520 08:45-0500Body mass index (BMI) [Ratio]27.32 kg/m2[facility]12-20-2024 08:45-0500Body wxtulm03.92 kg[facility]12-[facility]-2024 08:45-0500Diastolic blood lscvwahg18 mm[Hg][facility]12-20-2024 08:45-0500Systolic blood veewizeh943 mm[Hg][facility]11-25-2024 09:15-0500Body hxiiow377.3 Kendrick PETER Work Phone: [facility] CenterOvhnutscbh12-13-5771 09:15-0500Body mass index (BMI) [Ratio]27.32 kg/m2Margret PETER Work Phone: [facility] CenterBmsiwvgvie77-10-0126 09:15-0500Body glweqs64.92 kgMargret PETER Work Phone: [facility] CenterEbxdjdnmal79-78-6227 09:15-0500Diastolic blood oohlwxis64 mm[Hg]Margret PETER Work Phone: [facility] CenterEfgopbzser73-87-0004 09:15-0500Systolic blood ivxbkzrx563 mm[Hg]Margret PETER Work Phone: [facility] Encounters Encounter DateEncounter TypeCare ProviderFacilityStart: 05-31-2025 End: 39-36-4102Qarlckyflh care visitCorey Javan DO Work Phone: noMS [facility] OBGYNComment on above:6 weeks follow-up ([facility])Start: 05-31-2025 End: 54-36-8564qmazxntoutCWSNY FAZIONot AvailableStart: 04-08-2025 End: 92-07-4309Mrohlpygr Result EncounterCorey Javan DO Work Phone: [facility] External Department UnsolicitedStart: 04-08-2025 End: 72-26-8157Casrbuykp Result EncounterCorey Javan DO Work Phone: [facility] External Department UnsolicitedStart: 04-07-2025 End: 78-01-3712Yynyladgd Result EncounterCorey Javan DO Work Phone: [facility] External Department UnsolicitedStart: 04-07-2025 End: 41-45-4313Kbnfxfnfk Result EncounterCorey Javan DO Work Phone: [facility] External Department UnsolicitedStart: 04-06-2025 End: 73-06-9090Azlmwyhf flow sheetCorey Javan DO Work Phone: [facility] BCP OBComment on above:Third trimester ([facility]); 38 weeks gestation of ([facility])Start: 04-06-2025 End: 14-81-7901Jjmqir flowsheetCorey Javan DO Work Phone: [facility] BCP OBStart: 04-06-2025 End: 85-13-3609Pqtzbb flowsheetCorey Javan DO Work Phone: [facility] BCP OBStart: 04-06-2025 End: 65-78-2407ftxsuzvsdiTQBBX FAZIONot AvailableStart: 03-30-2025 End: 41-02-5990Lupylkan flow sheetCorey Javan DO Work Phone: [facility] BCP OBComment on above:Third trimester ([facility]); 37 weeks gestation of ([facility])Start: 03-30-2025 End: 33-20-9302bzscnzrsrqHSMRR FAZIONot AvailableStart: 03-30-2025 End: 18-78-6366Sdlecm flowsheetCorey Javan DO Work Phone: [facility] BCP OBStart: 03-30-2025 End: 50-13-5347Igtywy flowsheetCorey Javan DO Work Phone: [facility] BCP OBStart: 03-23-2025 End: 56-40-9997Mxiutzln flow sheetCorey Javan DO Work Phone: [facility] BCP OBComment on above:Third trimester ([facility]); 36 weeks gestation of ([facility])Start: 03-23-2025 End: 70-30-5867notgatfwgpLXCHX FAZIONot AvailableStart: 03-16-2025 End: 33-99-5921Oxevts flowsiDon PETER Work Phone: [facility] BCP OBStart: 03-16-2025 End: 64-70-3204Ydytde joeheetMargret PETER Work Phone: [facility] BCP OBStart: 03-16-2025 End: 67-58-6853Hbyjjkfd flow sheetMargret PETER Work Phone: [facility] BCP OBComment on above:Third trimester ([facility]); 36 weeks gestation of ([facility])Start: 03-16-2025 End: 70-13-9922esxqbzxatpFZQ Stephanie AvailableStart: 03-09-2025 End: 35-85-4366Bxfojati flow sheetCorey Javan DO Work Phone: [facility] BCP OBComment on above:34 weeks gestation of ([facility]); Third trimester ([facility])Start: 03-09-2025 End: 48-09-9668xxmftnvfvdFHIJV FAZIONot AvailableStart: 02-23-2025 End: 19-06-7351Xadvrbtn flow sheetCorey Javan DO Work Phone: [facility] BCP OBComment on above:Third trimester ; 32 weeks gestation of pregnancyStart: 02-23-2025 End: 12-26-8871pwtxzrbtxxIIXJC FAZIONot AvailableStart: 02-23-2025 End: 60-16-5158Tibycn flowsheetCorey Javan DO Work Phone: [facility] BCP OBStart: 02-23-2025 End: 21-16-8648Sorklb flowsheetCorey Javan DO Work Phone: [facility] BCP OBStart: 02-16-2025 End: 31-11-0880ukqcteoxasMSLEE FAZIONot AvailableStart: 02-09-2025 End: 75-83-4909Dwpnzb flowsheetCorey Javan DO Work Phone: [facility] BCP OBStart: 02-09-2025 End: 32-62-5491Pvwtho flowsheetCorey Javan DO Work Phone: noms BCP OBStart: 02-09-2025 End: 08-53-7348Jlltayqu flow sheetCorey Javan DO Work Phone: noms BCP OBComment on above:Third trimester ; 30 weeks gestation of ; Vaginal discharge during in third trimesterStart: 02-09-2025 End: 31-04-9148ximbnogfwzKCCAP FAZIONot AvailableStart: 02-03-2025 End: 19-73-0574kqmonnzhfcIZDTB FAZIONot AvailableStart: 01-28-2025 End: 93-80-1796aireacmjdoQLNKKMercy Health Anderson Hospitaltart: 01-19-2025 End: 32-43-8341duusnngzmdKEIXX FAZIONot AvailableStart: 01-19-2025 End: 47-96-7006Smzqedkm flow sheetCorey Javan DO Work Phone: noms BCP OBComment on above:Second trimester ; 27 weeks gestation of pregnancyStart: 01-18-2025 End: 74-79-7421Wkvromkmr Result EncounterCorey Javan DO Work Phone: noms External Department UnsolicitedStart: 01-18-2025 End: 18-56-8372Uyuoetilq Result EncounterCorey Javan DO Work Phone: noms External Department UnsolicitedStart: 12-28-2024 End: 22-08-9999Ifkgoopy flow sheetCorey Javan DO Work Phone: noms BCP OBComment on above:24 weeks gestation of ; Second trimester ; Diabetes mellitus screening; Excessive growth affecting management of , antepartum, single or unspecified fetusStart: 12-28-2024 End: 60-08-1060Jerhvj flowsheetCorey Javan DO Work Phone: noms BCP OBStart: 12-28-2024 End: 92-07-6223Pebqwo flowsheetCorey Javan DO Work Phone: noms BCP OBStart: 12-28-2024 End: 08-76-3545skeiteworgVLHTE FAZIONot AvailableStart: 11-29-2024 End: 03-78-5054akayxsafitCCU FRANCOISEKARENNot AvailableStart: 11-17-2024 End: 50-90-8948Zdvcnn flowsDion PETER Work Phone: [facility] BCP OBStart: 11-17-2024 End: 94-45-3200Cgxkyt flowsDion PETER Work Phone: noms BCP OBStart: 11-17-2024 End: 43-70-5773Bmqajjrpo Result EncounterMargret PETER Work Phone: noMS External Department UnsolicitedStart: 11-17-2024 End: 69-88-5683vpnykbihanYVO SOLNot AvailableStart: 11-17-2024 End: 57-20-3338Avvzitz encounter procedureMargret PETER Work Phone: [facility] Work Phone: Start: 11-17-2024 End: 02-27-9719Afjvgchk preventive med est patient 18-39 yrsAmy Sol PETER Work Phone: noms [facility] OBComment on above:Well woman exam with routine gynecological exam; 18 weeks gestation of ; Exposure to STD; Vaginal discharge; Second trimester pregnancyStart: 11-15-2024 End: 08-90-7491Ilegfgek Result EncounterCorey Javan DO Work Phone: noms External Department UnsolicitedStart: 11-15-2024 End: 23-31-1744Awpptkpv Result EncounterCorey Javan DO Work Phone: noms External Department UnsolicitedStart: 11-09-2024 End: 06-09-6502gtmfxsopxwICDJO FAZIONot AvailableStart: 11-09-2024 End: 29-49-0606Derotsq encounter procedureNoms Sws Uc NurseNOMS SWS UCComment on above:Screening for lipoid disorders; Screening for diabetes mellitusStart: 11-03-2024 End: 81-26-9013umdwehxkbrDGUXH FAZIONot AvailableStart: 11-03-2024 End: 76-61-5358Axpchfqg flow sheetCorey Javan DO Work Phone: NODA BCP OBComment on above:Second trimester ; Hematuria, unspecified type; Need for maternal serum alpha-protein (MSAFP) screening; 16 weeks gestation of ; Screening, , for anatomic survey; Vaginal discharge during in second trimesterStart: 10-06-2024 End: 24-46-5594klbwvenmlkTFZKS FAZIONot AvailableStart: 10-06-2024 End: 85-97-1642Flrlxp flowsheetCorey Javan DO Work Phone: NOAF BCP OBStart: 10-06-2024 End: 22-27-3476Jyuudi flowsheetCorey Javan DO Work Phone: NOVD BCP OBStart: 10-06-2024 End: 40-50-8103Keoxoupj flow sheetCorey Javan DO Work Phone: NOWQ BCP OBComment on above:12 weeks gestation of ; First trimester pregnancyStart: 10-01-2024 End: 61-55-3448Nwzzmnisn Result EncounterCorey Javan DO Work Phone: NOUA External Department UnsolicitedStart: 10-01-2024 End: 65-12-0512Agrvbznru Result EncounterCorey Javan DO Work Phone: NOKM External Department UnsolicitedStart: 09-10-2024 End: 30-90-4519Xeedtqbkp Result EncounterCorey Javan DO Work Phone: NOBF External Department UnsolicitedStart: 09-10-2024 End: 49-80-6496Qnihiopwq Result EncounterCorey Javan DO Work Phone: NOBX External Department UnsolicitedStart: 09-10-2024 End: 62-80-0199kvspccizyzSSYLB FAZIONot AvailableStart: 09-10-2024 End: 70-07-9333Nimwtis encounter procedureNoms Bcp Ob Javan NurseNOMS [facility] OB Comment on above:Missed menses; , unspecified gestational age; Encounter for supervision of normal first in first trimester; 9 weeks gestation of pregnancyStart: 08-16-2024 End: 90-56-1709Omuitz Domenic PETER Work Phone: noMS BCP OBStart: 08-16-2024 End: 37-73-2309Gyenht Domenic PETER Work Phone: [facility] OBStart: 08-16-2024 End: 69-03-3875uromrtdejlRUS Stephanie AvailableStart: 08-16-2024 End: 46-92-6807Eerdcl outpatient visit 15 minutesMargret PETER Work Phone: [facility] OBComment on above:Annual wellness visit (Primary Dx)Start: 08-16-2024 End: 71-37-9059Ylwnumw encounter Arron PETER Work Phone: [facility] Work Phone: Start: 10-21-2022 End: 99-48-0978xcmzzmvkcjGBMWOV DIABFacility:K8Icdtr: 10-17-2022 End: 65-61-1885apeuknubofRM DEANNE HOYFacility:M0Qhpcn: 04-01-2022 End: 50-52-5899Tykbxtgqrs and management of inpatientDR GIULIA FAZIOFacility:H1 Start: 03-11-2022 End: 81-04-6928ntonkuslwfFO GIULIA FAZIOFacility:M6Vwcsi: 03-04-2022 End: 42-70-2718phqdxqzxwrKY GIULIA FAZIOFacility:P3Fqwcb: 01-18-2022 End: 34-97-5135zdzsjaylvbED GIULIA FAZIOFacility:E0Mopma: 12-31-2021 End: 25-69-2592plnunogixkJP GIULIA FAZIOFacility:M5Mgzyp: 12-31-2021 End: 55-41-1388qoiwbullegWY GIULIA FAZIOFacility:P4Adlpc: 12-17-2021 End: 96-66-9558lbwefmolkoNV GIULIA FAZIOFacility:N0Ymthq: 11-19-2021 End: 10-73-0813lavlvzgjlmYF GIULIA FAZIOFacility:S0Klple: 11-19-2021 End: 53-67-5603vznzccdtprLF GIULIA FAZIOFacility:H1 Procedures DateProcedureProcedure DetailPerforming ClinicianStart: 49-67-3989TLC CBC WITH AUTO DIFFCorey Javan DO Work Phone: Start: 12-63-7269HWCM CBC WITH PLATELET NO DIFFERENTIALCorey Javan DO Work Phone: Start: 93-37-9488Cykam dip stick/tablet rgnt non-auto w/o micrscpCorey Javan DO Work Phone: Start: 85-25-9896Tvcap dip stick/tablet rgnt non-auto w/o micrscpCorey Javan DO Work Phone: Start: 05-55-7090Aiebv dip stick/tablet rgnt non-auto w/o micrscpAmy Auburn PA Work Phone: Start: 89-22-3227Blnpx dip stick/tablet rgnt non-auto w/o micrscpCorey Javan DO Work Phone: Start: 47-33-3166Ajeik dip stick/tablet rgnt non-auto w/o micrscpCorey Javan DO Work Phone: Start: 48-47-6561Hgzcq dip stick/tablet rgnt non-auto w/o micrscpCorey Javan DO Work Phone: Start: 78-72-2954Gurtu dip stick/tablet rgnt non-auto w/o micrscpCorey Javan DO Work Phone: Start: 62-32-7388CJANLQV 1 HOURCorey Javan DO Work Phone: Start: 59-37-4149Ikamk dip stick/tablet rgnt non-auto w/o micrscpCorey Javan DO Work Phone: Start: 03-12-8165VRF,APTIMA HPV,AGE GDLNMargret PETER Work Phone: Start: 75-09-5641Rsvvxqloqzy observation [Identifier] in Cervix by Cyto stainCorey Javan DO Work Phone: Start: 17-52-6655CKEQWCN TRACT INFECTION (HTRX)Giulia Javan DO Work Phone: Start: 17-34-4222Ojbww panelRob Pelayo DO Work Phone: Start: 68-14-2862Kszaz dip stick/tablet rgnt non-auto w/o micrscpCorey Javan DO Work Phone: Start: 28-31-3487Cztli dip stick/tablet rgnt non-auto w/o micrscpCorey Javan DO Work Phone: Start: 18-59-8912IPZ TESTCorey Javan DO Work Phone: Start: 50-38-5980TX OB TRANSVAGINALCorey Javan DO Work Phone: Start: 09-10-2024 End: 98-37-3383Zlisv dip stick/tablet rgnt non-auto w/o micrscpCorey Javan DO Work Phone: Start: 09-06-1538Uvapkgiffct observation [Identifier] in Cervix by Cyto stainCorey Javan DO Work Phone: Start: 43-88-1985Tadk cerv/vag auto thin layer prep mnl screenMargret PETER Work Phone: Start: 00-04-0709Fgekncmp of Products of Conception, External ApproachDR GIULIA FAZIOStart: 74-24-2192Yioepilp of Amniotic Fluid, Therapeutic from Products of Conception, Via Natural or Artificial OpeningDR GIULIA FAZIOStart: 83-11-3219Newxdigzlsik of Other Hormone into Peripheral Vein, Percutaneous ApproachDR GIULIA DIEGOOStart: 20-20-8567Ydhvhw Perineum Skin, External ApproachDR GIULIA EDOUARD Plan of Treatment DateCare ActivityDetailAuthorStart: 02-96-5244Kzhevkvlr for malignant neoplasm of cervixNOMS HealthcareStart: 97-07-9029Gacfpipmi for malignant neoplasm of cervixNOMS HealthcareStart: 53-38-1241Admcmtvto vaccinationNOMS HealthcareStart: 05-19-2025 End: 06-82-6919dblxynuvtf55/28/2025 11:10 AM EDT Visit [facility] [address] [place] [phone] Giulia Edouard, DO [address] [place] [address] [facility] BCP OBStart: 04-06-2025 End: 73-24-5036Ydolvdu encounter procedureNOMS BCP OBComment on above:Arrived Start: 03-30-2025 End: 65-25-5656Ixelykj encounter procedureNOMS BCP OBComment on above:Arrived Start: 03-23-2025 End: 61-77-6186Jmxhgxc encounter yvvksphyi22/02/2025 4:00 PM EDT Routine [facility] [address] [place] [phone] Giulia Edouard, DO [address] [place] [address] [facility] BCP OBStart: 03-16-2025 End: 45-37-3778SMEGRZL, GROUP B STREP WITH SUSCEPTIBLITYCULTURE, GROUP B STREP WITH SUSCEPTIBLITY Lab Routine Third trimester ([facility]) Expected: 03/16/2025, Expires: 03/16/2026[facility] Work Phone: comment on above:Expected: 03/16/2025, Expires: 03/16/2026Start: 03-16-2025 End: 12-63-5955Ebhvalr encounter wysmgousm69/25/2025 10:00 AM EDT Routine [facility] [address] [place] [phone] Margret Mcgovern PA [address] [facility] [place] [address] ArrivedNOMS BCP OBComment on above: ArrivedStart: 03-09-2025 End: 42-67-2573Wzjetuh encounter bchzfeane66/18/2025 4:00 PM EDT Routine [facility] [address] [place] [id number] Giulia Edouard, [address] [place], [place] [id number] [facility] BCP OBStart: 02-23-2025 End: 31-09-7384Jjwykir encounter procedureNOMS BCP OBComment on above:Arrived Start: 02-09-2025 End: 87-12-0297FZ for pregnancyUS OB limited 1+ fetuses Imaging Routine Vaginal discharge during in third trimester Expected: 02/09/2025, Expires: 05/12/2025[facility] Work Phone: comment on above:Expected: 02/09/2025, Expires: 05/12/2025Start: 02-09-2025 End: 63-00-4574Zxuuyqm encounter eaadywkva48/21/2025 11:00 AM EDT Routine [facility] [address] [place] [phone] Giulia Edouard, DO [address] [place] [address] [place] [address] ArrivedNOMS BCP OBComment on above: ArrivedStart: 02-03-2025 End: 02-06-4903Yfibmjctokyw / ancillary services ceagnqlkhm71/15/2025 8:00 AM EDT Ancillary Procedure [facility] [address] [place] [address] [facility] BCP OBStart: 01-25-2025 End: 23-68-4805Vdqkjve encounter meywnttey92/06/2025 9:10 AM EDT Routine [facility] OB [address] [place] [address] [place] [phone] Giulia Edouard, [address] [place] [address] N[facility] BCP OBStart: 12-28-2024 End: 33-18-6765Jmundne encounter smcesyyff58/08/2025 3:00 PM EDT Routine [facility] [address] [place] [phone] Giulia Edouard, [address] [place] [address] 24 weeks gestation of ; Second trimester ; Diabetes mellitus screeningNOR[facility] OBComment on above:24 weeks gestation of ; Second trimester ; Diabetes mellitus screeningStart: 12-28-2024 End: 47-57-0567OTS panel - Blood by Automated countCBC Lab Routine 24 weeks gestation of Second trimester Diabetes mellitus screening Expected: 12/28/2024 (Approximate), Expires: 12/28/2025[facility] Work Phone: comment on above:Expected: 12/28/2024 (Approximate), Expires: 12/28/2025Start: 12-28-2024 End: 07-91-0614Sbknpytmucv of glucose 1 hour after glucose challenge for glucose tolerance testGlucose tolerance, 1 hour Lab Routine 24 weeks gestation of Second trimester Diabetes mellitus screening Expected: 12/28/2024 (Approximate), Expires: 12/28/2025[facility] HealthcareComment on above: Expected: 12/28/2024 (Approximate), Expires: 12/28/2025Start: 12-28-2024 End: 86-84-0343XR for pregnancyUS OB follow up transabdominal approach Imaging Routine Excessive growth affecting managementof , antepartum, single or unspecified fetus Expected: 12/28/2024, Expires: 04/29/2025[facility] HealthcareComment on above:Expected: 12/28/2024, Expires: 04/29/2025Start: 11-29-2024 End: 54-01-3241Odvphzd encounter procedureNOMS BCP OBStart: 11-29-2024 End: 33-07-5412Jbwmxwbxtjhw / ancillary services tqtkzueeoo28/10/2025 8:00 AM EDT Ancillary Procedure [facility] [address] [place] [id number] [facility] OBStart: 11-03-2024 End: 95-92-5685Qzkijwg encounter ambegxxzb69/12/2025 3:40 PM EST Routine [facility] [address] [place] [address] Giulia Edouard, [address] [place] [address] [facility] BCP OBStart: 11-03-2024 End: 74-20-8164Uxlyb fetoprotein, maternalAlpha fetoprotein, maternal Lab Routine Need for maternal serum alpha-protein (MSAFP) screening Expected: 11/03/2024 (Approximate), Expires: 12/01/2024[facility] HealthcareComment on above: Expected: 11/03/2024 (Approximate), Expires: 12/01/2024Start: 11-03-2024 End: 70-53-5239RX for pregnancyUS OB 14+ weeks anatomy scan Imaging Routine Screening, , for anatomic survey Expected: 11/03/2024 (Approximate), Expires: 11/03/2025[facility] Work Phone: comment on above:Expected: 11/03/2024 (Approximate), Expires: 11/03/2025Start: 41-96-3141Iolipecad for malignant neoplasm of cervix HPV/CotestNOMS HealthcareStart: 10-06-2024 End: 80-56-6510Ytclgrh encounter iqauhjuxf17/15/2025 10:50 AM EST Routine [facility] [address] [place] [address] Giulia Edouard, DO [address] [place] [address] [place] [address] [facility] BCP OBStart: 09-10-2024 End: 13-66-8122LGC/RhABO/Rh Lab Routine Missed menses , unspecified gestational age Expected: 09/10/2024 (Approximate), Expires: 09/10/2025[facility] HealthcareComment on above:Expected: 09/10/2024 (Approximate), Expires: 09/10/2025Start: 09-10-2024 End: 06-68-5517Xncsw type and Indirect antibody screen panel - BloodType and screen Lab Routine Missed menses , unspecified gestational age Expected: 09/10/2024 (Approximate), Expires: 09/10/2025[facility] Work Phone: comment on above:Expected: 09/10/2024 (Approximate), Expires: 09/10/2025Start: 09-10-2024 End: 99-26-7482Ztvwj of abuse panel - Urine by Screen methodRapid drug screen, urine Lab Routine , unspecified gestational age Encounter for supervision of normal first in first trimester Expected: 09/10/2024 (Approximate), Expires: 09/10/2025[facility] HealthcareComment on above:Expected: 09/10/2024 (Approximate), Expires: 09/10/2025Start: 09-10-2024 End: 19-21-6447WB Pelvis transvaginalUS OB transvaginal Imaging Routine Missed menses Expected: 09/10/2024 (Approximate), Expires: 09/10/2025[facility] Healthcare Comment on above:Expected: 09/10/2024 (Approximate), Expires: 09/10/2025Start: 09-10-2024 End: 72-44-8394Evvuxsi encounter vvauynfji94/20/2024 8:20 AM EST Routine [facility] [address] [place] [address] [facility] BCP OBStart: 09-10-2024 End: 32-33-2860Ozzydswifanc / ancillary services pekcggbgcs34/20/2024 8:00 AM EST Ancillary Procedure [facility] [address] [place] [address] [facility] BCP OBStart: 08-16-2024 End: 11-89-3966Vqmwr 1996 panel - Serum or PlasmaLipid panel Lab Routine Annual wellness visit Expected: 08/16/2024 (Approximate), Expires: 08/16/2025[facility] HealthcareComment on above:Expected: 08/16/2024 (Approximate), Expires: 08/16/2025Start: 80-17-1145Zdordqvcf vaccinationInfluenza Vaccine (#1)[facility] HealthcareBacteria identified in Urine by CultureUrine culture Microbiology Routine Missed menses Ordered: 09/10/2024[facility] HealthcareComment on above: Ordered: 09/10/2024BC W Auto Differential panel - BloodCBC and differential Lab Routine Annual wellness visit Ordered: 08/16/2024[facility] HealthcareComment on above:Ordered: 08/16/2024BC W Auto Differential panel - BloodCBC and differential Lab Routine Missed menses , unspecified gestational age Ordered: 09/10/2024[facility] HealthcareComment on above:Ordered: 09/10/2024HLAMYDIA TRACHOMATIS (GENITO/STI)CHLAMYDIA TRACHOMATIS (GENITO/STI) Lab Routine Vaginal discharge Ordered: 11/17/2024[facility] HealthcareComment on above:Ordered: 11/17/2024 Comprehensive metabolic 2000 panel - Serum or PlasmaComprehensive metabolic panel Lab Routine Annual wellness visit Ordered: 08/16/2024[facility] Healthcare Comment on above:Ordered: 08/16/2024ytology Cervical or vaginal smear or scraping studyPap Smear Pathology and Cytology Routine Well woman exam with routine gynecological exam Ordered: 11/17/2024[facility] HealthcareComment on above: Ordered: 11/17/2024Hemoglobin A1c/Hemoglobin.total in BloodHemoglobin A1c Lab Routine Annual wellness visit Ordered: 08/16/2024[facility] HealthcareComment on above:Ordered: 08/16/2024Hemoglobin A1c/Hemoglobin.total in BloodHemoglobin A1c Lab Routine Missed menses , unspecified gestational age Ordered: 09/10/2024[facility] HealthcareComment on above:Ordered: 09/10/2024Hepatitis B virus surface Ag [Presence] in Serum or Plasma by ImmunoassayHepatitis B surface antigen Lab Routine Missed menses , unspecified gestational age Ordered : 09/10/2024[facility] HealthcareComment on above:Ordered: 09/10/2024Hepatitis C virus Ab [Presence] in Serum or Plasma by ImmunoassayHepatitis C antibody Lab Routine Missed menses , unspecified gestational age Ordered: 09/10/2024[facility] HealthcareComment on above:Ordered: 09/10/2024HIV-1/HIV-2 antigen/antibody combination immunoassayHIV-1 and HIV-2 antibodies Lab Routine Missed menses , unspecified gestational age Ordered: 09/10/2024[facility] HealthcareComment on above:Ordered: 09/10/2024Human papilloma virus DNA [Presence] in Unspecified specimen by Probe with amplificationHPV DNA probe, amplified Microbiology Routine Well woman exam with routine gynecological exam Ordered: 11/17/2024[facility] HealthcareComment on above:Ordered: 11/17/2024Neisseria gonorrhoeae DNA [Presence] in Unspecified specimen by PREMA with probe detectionNeisseria gonorrhea DNA probe, direct Lab Routine Vaginal discharge Ordered: 11/17/2024 [facility] HealthcareComment on above:Ordered: 11/17/2024Reagin Ab [Presence] in Serum by RPRRPR Lab Routine Missed menses , unspecified gestational age Ordered: 09/10/2024[facility] HealthcareComment on above:Ordered: 09/10/2024ubella antibody, IgGRubella antibody, IgG Lab Routine Missed menses , unspecified gestational age Ordered: 09/10/2024[facility] HealthcareComment on above: Ordered: 09/10/2024SURESWAB(R) ADVANCED VAGINITIS PLUS, TMASURESWAB(R) ADVANCED VAGINITIS PLUS, TMA Pathology and Cytology Routine Exposure to STD Ordered: [facility] Healthcare Work Phone: comment on above:Ordered: 11/17/2024Thyrotropin [Units/volume] in Serum or PlasmaTSH Lab Routine Annual wellness visit Ordered: 08/16/2024[facility] Healthcare Work Phone: comrjzb on above:Ordered: 08/16/2024 Payers DatePayer CategoryPayerPolicy [id number] Health [id number] Medicaid (Managed Care)[id number] [id number] 2.16840.1.462189.3.57[id number] 2.840.1.413721.3.57[id number] 2.0.1.114526.3.57[id number] 2.840.1.093192.3.57[id number] 2.840.1.605578.3.57[id number] 2.840.1.488445.3.57[id number] 2..1.582545.3.57[id number] 2.16840.1.515820.3.57[id number] 2.16840.1.079383.3.57[id number] 2.16840.1.540175.3.579.[id number] 2.840.1.696294.3.57[id number] 2.16.840.1.596835.3.57[id number] 2.16.840.1.299320.3.57[id number] 2.16.840.1.060488.3.57[id number] 2.16.840.1.809172.3.579.2.589758-06-9083Pfhyqgu19842869 2.16.840.1.871864.3.579.[id number] 2.16840.1.283251.3.579.2.1[id number] 2.16840.1.596972.3.579.2.473792-83-2317Wgjqaaz4182430 2.16840.1.014660.3.579.2.204175-38-7459Hwxwfhx6589339 2.16840.1.471638.3.579.2.[id number] 2.16.840.1.125382.3.57[id number] 2.16840.1.158505.3.57[id number] 2.16.840.1.258726.3.579.2.932955-43-7510Rzvannn5595602 2.16.840.1.158032.3.579.2.467179-98-1417Soywwcc3992401 2.16.840.1.427560.3.579.2.085748-13-3490Cskfttp3094316 2.16840.1.541494.3.579.2.144701-46-6486Hffbgzh8850576 2.16.840.1.312034.3.579.2.354627-43-0326Gfqmheu2630329 2.16.840.1.837758.3.57[id number] 2.16.840.1.101210.3.579.2.864419-49-9370Qeywjhi2150016 2.16.840.1.765197.3.579.2.4[id number] 2.16.840.1.745716.3.579.2.237043-56-0947AjskzumP8U5402324LD84-17-8543Uwsjhsj 388333470[id number] Social History DateTypeDetailFacilityTobacco smoking status NHISTobacco smoking consumption unknownSALT [facility]KE [facility] HealthcareStart: 66-43-4031Qqy assigned at birthFeWellSpan Surgery & Rehabilitation HospitalStart: 65-60-1444Qgbkda identityIdentifies as female gender (finding) [facility] CenterStart: 71-43-5340Hqagxf orientationHeterosexual (finding)[facility] CenterStart: 38-63-4460PcutlbhhvCGBV HealthcareStart: 37-17-7195ZnqBlfnlr [facility] Clinical Notes 11-19-2021 to 05-31-2025 Note Date & XzmeUlxkGewqvsuh04-60-7295 History of Present illness Narrative* Giulia Edouard DO - 05/31/2025 9:10 AM EDT Reason for Appointment: Patient ID: Sidra Spann is a 29 y.o. female who presents [...] nursing note reviewed. Exam conducted with a manager of sustainability present. Vitals: Estimated body mass index is 27.76 kg/m as calculated from the following: Height as of this encounter: 5' 9 . Weight as of this encounter: 188 lb. BP: 122/74 Patient's last menstrual period was 07/08/2024. Assessment/Plan Encounter Diagnosis: ICD-10-CM 1. 6 weeks follow-up ([facility]) Z39.2 Post Follow Up: Patient is doing [...] of: Giulia Edouard DO documented in this encounterNevada Regional Medical CenterJgxblaxhaw68-60-6109 History of Present illness Narrative* Kaya OhJUAN LUIS - 03/30/2025 4:00 PM EDT Reason for Appointment: Patient ID: Sidra Spann is a 29 y.o. female who presents [...] nursing note reviewed. Exam conducted with a manager of sustainability present. Vitals: Estimated body mass index is 30.72 kg/m as calculated from the following: Height as of 08/16/24: 5' 9 . Weight as of this encounter: 208 lb. BP: 118/72 Patient's last menstrual period was 07/08/2024. ASSESSMENT & PLAN ICD-10-CM 1. Third trimester ([facility]) Z34.93 2. 37 weeks gestation of ([facility]) Z3A.37 Return OB: Patient presents today for [...] of: Giulia Edouard DO documented in this encounterNevada Regional Medical CenterPsbnoitujp79-10-8102 History of Present illness Narrative* Kaya Oh LPN - 03/23/2025 11:00 AM EDT Reason for Appointment: Patient ID: Sidra Spann is a 29 y.o. female who presents [...] nursing note reviewed. Exam conducted with a manager of sustainability present. Vitals: Estimated body mass index is 30.42 kg/m as calculated from the following: Height as of 08/16/24: 5' 9 . Weight as of this encounter: 206 lb. BP: 116/78 Patient's last menstrual period was 07/08/2024. ASSESSMENT & PLAN ICD-10-CM 1. Third trimester ([facility]) Z34.93 Urine dip 2. 36 weeks gestation of ([facility]) Z3A.36 Urine dip Return OB: Patient presents [...] of: Giulia Edouard DO documented in this encounterNevada Regional Medical CenterUtuadmszxx65-69-4061 History of Present illness Narrative* ROME Adams - 03/16/2025 10:00 AM EDT Reason for Appointment: Patient ID: Sidra Spann is a 29 y.o. female who presents [...] ASSESSMENT & PLAN ICD-10-CM 1. Third trimester ([facility]) Z34.93 POCT urinalysis dipstick manually resulted CULTURE, GROUP B STREP WITH SUSCEPTIBLITY CULTURE, GROUP B STREP WITH SUSCEPTIBLITY 2. 36 weeks gestation of ([facility]) Z3A.36 Patient is doing well but has [...] behalf of: ROME Adams documented in this encounterNevada Regional Medical CenterQvksnzctoq41-52-7677 History of Present illness Narrative* Vesna Eberly, [employer] - 02/23/2025 4:00 PM EDT Reason for Appointment: Patient ID: Sidra Spann is a 29 y.o. female who presents [...] nursing note reviewed. Exam conducted with a manager of sustainability present. Vitals: Estimated body mass index is [...] being tired due to current . Pt urinebeing sent for culture, pt having a lot [...] of: Giulia Edouard DO documented in this encounterNevada Regional Medical CenterAexwqfqkma48-70-4456 History of Present illness Narrative* Kaya Oh LPN - 02/09/2025 11:00 AM EDT Reason for Appointment: Patient ID: Sidra Spann is a 29 y.o. female who presents [...] nursing note reviewed. Exam conducted with a manager of sustainability present. Vitals: Estimated body mass index is [...] to current . Pt was seen at [facility] for amnisure and was negative. [...] of: Giulia Edouard DO documented in this encounterNevada Regional Medical CenterTmafmbehvl89-87-7273 [facility] Reason for cardiology consult: Palpitations and dizziness Chief Complaint: Palpitations and dizziness HPI: Sidra Spann is a 29 y.o. female without prior [...] by mouth before breakfast., Disp: , Rfl: [id number]-mrj-vtg-ihrw ( Multi-DHA,with vit K,) 27 mg iron-800 [...] Otherwise, follow-up in 2 months Nayana Redd MD,FACCUniversity of Palestine Regional [facility] Center04-30-2025 History of Present illness Narrative* Kaya Oh LPN - 01/19/2025 4:00 PM EDT Reason for Appointment: Patient ID: Sidra Spann is a 29 y.o. female who presents [...] nursing note reviewed. Exam conducted with a manager of sustainability present. Vitals: Estimated body mass index is [...] she is doing well but has complaints ofbeing tired due to current . Patient has verbalizes frequent movement. laborprecautions was discussed/given and patient was instructed to perform kick counts three timesa day. Orders Placed This Encounter Procedures POCT urinalysis dipstick manually resulted Follow Up: Patient is to return to office in 2 week for routine OB appointment. Documented by Kaya Oh LPN on behalf of: Giulia Edouard DO documented in this encounterNevada Regional Medical CenterJguvnzmwsj60-76-9294 History of Present illness Narrative* Kaya Oh LPN - 12/28/2024 3:00 PM EDT Reason for Appointment: Patient ID: Sidra Spann is a 29 y.o. female who presents [...] nursing note reviewed. Exam conducted with a manager of sustainability present. Vitals: Estimated body mass index is [...] being tired due to current . Pt givenglucola order with instructions. Pt measuring ahead given growth ultrasound. Patient has verbalizesfrequent movement. labor precautions was discussed/given. Orders Placed This Encounter Procedures US OB follow up transabdominal approach CBC Glucose tolerance, 1 hour POCT urinalysis dipstick manually resulted Follow Up: Patient is to return to office in 2 week for routine OB appointment. Documented by Kaya Oh LPN on behalf of: Giulia Edouard DO documented in this encounterNevada Regional Medical CenterNatxbnrumx37-67-5024 History of Present illness Narrative* ROME Adams - 11/17/2024 8:50 AM EST Reason for Appointment: Patient ID: Sidra Spann is a 29 y.o. female who presents [...] nursing note reviewed. Exam conducted with a manager of sustainability present. Vitals: Estimated body mass index is [...] behalf of: ROME Adams documented in this [facility]02-18-2025 History of Present illness Narrative* Jessica Macias RN - 11/09/2024 9:15 AM EST Employee presents for Biometric Screening. documented in this [facility]02-12-2025 History of Present illness Narrative* Kaya Oh LPN - 11/03/2024 3:40 PM EST Reason for Appointment: Patient ID: Sidra Spann is a 29 y.o. female who presents [...] nursing note reviewed. Exam conducted with a manager of sustainability present. Vitals: Estimated body mass index is [...] of: Giulia Edouard DO documented in this encounterNevada Regional Medical CenterFfvirgboqi06-94-4570 History of Present illness Narrative* Kaya Oh LPN - 10/06/2024 11:00 AM EST Reason for Appointment: Patient ID: Sidra Spann is a 28 y.o. female who presents [...] nursing note reviewed. Exam conducted with a manager of sustainability present. Vitals: Estimated body mass index is [...] undercooked meat, and stay away from [facility]. Patient has been consulted regarding any further do's and don'tsof . Patient voiced understanding and all questions and concerns were answered. Pt has comp laints of hip pain, pt advised to stretch and try and yoga ball. No orders of the defined types were placed in this encounter. Follow Up: Patient is to return in 4 weeks for routine OB appointment. Documented by Kaya Oh LPN on behalf of: Giulia Edouard DO documented in this encounterNevada Regional Medical CenterZmimfptcdr01-08-3250 History of Present illness Narrative* Jaimee Beckman MA - 09/10/2024 8:20 AM EST Reason for Appointment: Patient ID: Sidra Spann is a 28 y.o. female who presents [...] drink 6-8 glasses of water a day, eatno raw or undercooked meat, and stay away from [facility]. Patient has also been advised to not change litter boxes and eat 6 small meals a day. Patient has been consulted regarding the do's and don'ts ofpregnancy. Patient was given labs and all questions [...] by: Jaimee Beckman MA documented in this encounterNevada Regional Medical CenterBasrexnchv13-03-8754 History of Present illness Narrative* ROME Adams - 08/16/2024 8:50 AM EST Reason for Appointment: Patient ID: Sidra Spann is a 28 y.o. female who presents [...] behalf of: ROME Adams documented in this encounterNevada Regional Medical CenterBqdxvvofnd35-46-5223 NotePROCEDURE: XR WRIST LT MIN 3 V COMPARISON: None. HISTORY: Pain of left wrist FINDINGS: BONES:No fracture, acute abnormality, or significant arthropathy. SOFT TISSUES:Negative. No visible soft tissue swelling. EFFUSION:None visible. OTHER: Negative. IMPRESSION: No acute abnormality Electronically authenticated by: MARBIN ROSA Date: 2021-11-19 13:16[facility]* Diagnosis Annual wellness visit- Primary documented in this encounter [facility] HealthcareEvaluation note* Diagnosis Missed menses , unspecified gestational age Encounter for supervision of normal first in first trimester 9 weeks gestation of documented in this encounter [facility] HealthcareEvaluation note* Diagnosis 12 weeks gestation of First trimester state, incidental documented in this encounter [facility] HealthcareEvaluation note* Diagnosis Second trimester state, incidental Hematuria, unspecified type Need for maternal serum alpha-protein (MSAFP) screening 16 weeks gestation of Screening, , for anatomic survey Encounter for anatomic survey Vaginal discharge during in second trimester documented in this encounter [facility] HealthcareEvaluation note* Diagnosis Screening for lipoid disorders Screening for diabetes mellitus documented in this encounter [facility] HealthcareEvaluation note* Diagnosis Well woman exam with routine gynecological exam Routine gynecological examination 18 weeks gestation of Exposure to STD Vaginal discharge Leukorrhea, not specified as infective Second trimester state, incidental documented in this encounter [facility] HealthcareEvaluation note* Diagnosis 24 weeks gestation of [...] [facility] HealthcareEvaluation note* Diagnosis 6 weeks follow-up ([facility]) documented in this encounter [facility] HealthcareHistory of Present illness Narrative* ROME Adams - 03/09/2025 4:00 PM EDT Reason for Appointment: Patient ID: Sidra Spann is a 29 y.o. female who presents [...] PLAN ICD-10-CM 1. 34 weeks gestation of ([facility]) Z3A.34 POCT urinalysis dipstick manually resulted 2. Third trimester ([facility]) Z34.93 POCT urinalysis dipstick manually resulted Return [...] EDT Reason for Appointment: Patient ID: Sidra Spann is a 29 y.o. female who presents [...] nursing note reviewed. Exam conducted with a manager of sustainability present. Vitals: Estimated body mass index is 31.01 kg/m as calculated from the following: Height as of 08/16/24: 5' 9 . Weight as of this encounter: 210 lb. BP: 122/70 Patient's last menstrual period was 07/08/2024. ASSESSMENT & PLAN ICD-10-CM 1. Third trimester ([facility]) Z34.93 POCT urinalysis dipstick manually resulted 2. 38 weeks gestation of ([facility]) Z3A.38 Return OB: Patient presents today for [...] content) DATE CREATED AUTHOR 10/24/2022 [facility] DATE CREATED AUTHOR AUTHOR'S ORGANIZ ATION 06/01/2025 [facility] EPIC DATE CREATED AUTHOR AUTHOR'S ORGANIZ ATION 07/16/2025 [facility] Care Teams (unrecognized sec tion and content) Team MemberRelationshipSpecialtyStart DateEnd Date Deanne Hdez MD [address] [place] [facility] [address] PCP - GeneralFamily Tjoiqjsi49/20/23Team MemberRelationshipSpecialtyStart Date End Date Deanne Hdez MD [address] [facility] [address] PCP - GeneralFamily Sghowzlc31/20/23Team MemberRelationshipSpecialtyStart Date End Date Deanne Hdez MD [address] [facility] [address] PCP - GeneralFamily Hpmzudkz09/20/23Team MemberRelationshipSpecialtyStart Date End Date Deanne Hdez MD [address] [facility] [address] PCP - GeneralFamily Dntgaeiu36/20/23Team MemberRelationshipSpecialtyStart Date End Date Deanne Hdez MD [address] [facility] [address] PCP - GeneralFamily Ktedoxex98/20/23am MemberRelationshipSpecialtyStart Date End Date Deanne Hdez MD [address] [facility] [address] PCP - GeneralFamily Usniysxm02/20/23Team MemberRelationshipSpecialtyStart Date End Date Deanne Hdez MD [address] [facility] [address] PCP - GeneralFamily Czpkmmvd50/20/23Team MemberRelationshipSpecialtyStart Date End Date Deanne Hdez MD [address] [facility] [address] PCP - GeneralFamily Urendqze89/20/23Team MemberRelationshipSpecialtyStart Date End Date Deanne Hdez MD [address] [facility] [address] PCP - GeneralFamily Fiprwpsc94/20/23Team MemberRelationshipSpecialtyStart Date End Date Deanne Hdez MD [address] [facility] [address] PCP - GeneralFamily Eegvenwx79/20/23am MemberRelationshipSpecialtyStart Date End Date Deanne Hdez MD [address] [facility] [address] PCP - GeneralFamily Fnmwwuhs21/20/23Team MemberRelationshipSpecialtyStart Date End Date Deanne Hdez MD PCP - GeneralFamily Nllwdgjs13/20/23Team MemberRelationshipSpecialtyStart Date End Date Deanne Hdez MD [address] [facility] [address] PCP - GeneralFamily Medicine02/09/25Team MemberRelationshipSpecialtyStart DateEnd Date Deanne Hdez MD [address] [place] [address] PCP - GeneralFamily Medicine02/09/25Team MemberRelationshipSpecialtyStart DateEnd Date Deanne Hdez MD [address] [place] [facility] [address] PCP - GeneralFamily Medicine02/09/25Team MemberRelationshipSpecialtyStart DateEnd Date Deanne Hdez MD [address] [facility] [address] PCP - GeneralFamily Medicine02/09/25Team MemberRelationshipSpecialtyStart DateEnd Date Deanne Hdez MD [address] [facility] [address] PCP - GeneralFamily Medicine02/09/25Team MemberRelationshipSpecialtyStart DateEnd Date Deanne Hdez MD [address] [facility] [place] [address] PCP - GeneralFamily Medicine02/09/25Team MemberRelationshipSpecialtyStart DateEnd Date Deanne Hdez MD [address] [facility] [address] PCP - GeneralFamily Medicine02/09/25Team MemberRelationshipSpecialtyStart DateEnd Date Deanne Hdez MD [address] [facility] [place] [address] [phone] PCP - GeneralFamily Medicine02/09/25Te MemberRelationshipSpecialtyStart DateEnd Deanne Hdez MD [address] [facility] [place] [address] [phone] PCP - GeneralFamily Medicine02/09/25Te MemberRelationshipSpecialtyStart DateEnd Deanne Hdez MD PCP - GeneralFamily Lbalfeqe86/20/235 Deanne Hdez MD [address] [facility] [place] [phone] [phone] [facility] - [facility]/25 Reason for Visit (unrecogniz ed section and content) ReasonCommentsGynecologic ExamReasonCommentsAmenorrheaReasonCommentsRoutine VisitReasonCommentsWell Women VisitRoutine VisitReasonComments CarePt present today for 6 week post visit. [...] BE BASED ON THE PRIMARY CLINICAL RECORDS. [facility]. provides no warranty or guarantee of the accuracy or completeness of information in this document.
[2025-08-29 12:51] LABS: Thyroid Stimulating Hormone 1.690 uIU/mL (0.358-3.740)
== END 2025-08-29 12:10 | disposition home or self-care (01) ==
LOC: LAB 12:09
PROVIDERS: PCP Family Medicine; Visit Provider Internal Medicine Cardiovascular Disease
DX: R00.2 Palpitations (principal); R06.09 Other forms of dyspnea
CPT/HCPCS: 36415; 84443